=== PATIENT | female | born 1930 | race Caucasian/White ===

== ENCOUNTER 2017-04-17 10:16 | Inpatient (IN) | payer OTHER, MEDICARE ==
--- NOTE | 2017-04-17 10:21 | PDOC ---
History of Present Illness - General History Source: Patient Exam Limitations: No Limitations - History of Present Illness Initial Comments: 04/17/17 10:53 The patient is a 86 year old female with a significant past medical history of HTN, Afib on coumadin and amiodarone, diverticulosis, and Acid Reflux who presents to the ED with one week of cough. The patient reports she developed a productive cough of clear phlegm Wednesday evening. She states the cough is worsened at night when she is laying down and reports wheezing last night. Patient also reports rhinorrhea, subjective fever, and a hoarse throat throughout the week. Patient reports an episode of generalized weakness this morning and felt like she was going to faint. Denies loss of consciousness. Patient reports taking tylenol (last dose at 2 am this morning), coricidin, and gargling salt water with slight relief of present symptoms. Nilson chest pain or palpitations. Denies nausea, vomiting, or diarrhea. Denies dysuria or change in urinary output. Denies throat pain. Denies any other symptoms. Past Surgical hx: Appendectomy Social hx: The patient is a current everyday smoker (5-6 cigarettes a day) and a social drinker. Allergies: Penicillin PCP: Dr. Urban <Christiano Vasquez - Last Filed: 04/17/17 17:50> <Ruth Anne - Last Filed: 04/18/17 00:00> - General Chief Complaint: Weakness Stated Complaint: WEAKNESS/DIZZINESS Time Seen by Provider: 04/17/17 10:21 Past History <Christiano Vasquez - Last Filed: 04/17/17 17:50> - Past Medical History Cardiac Disorders: Yes (A FIB) CVA: No CHF: No Dementia: No Diabetes: No GI Disorders: Yes (DIVERTICULOSIS) Disorders: No HTN: No Hypercholesterolemia: Yes Liver Disease: No Seizures: No Thyroid Disease: No - Surgical History Abdominal Surgery: Yes Appendectomy: Yes Cardiac Surgery: No Cholecystectomy: No Lung Surgery: No Neurologic Surgery: No Orthopedic Surgery: No - Suicide/Smoking/Psychosocial Hx Smoking Status: Yes Smoking History: Current every day smoker Have you smoked in the past 12 months: Yes Number of Cigarettes Smoked Daily: 10 'Breaking Loose' booklet given: 02/04/16 Hx Alcohol Use: No Drug/Substance Use Hx: No Substance Use Type: None Hx Substance Use Treatment: No <Ruth Anne - Last Filed: 04/18/17 00:00> - Past Medical History Allergies/Adverse Reactions: Allergies Allergy/AdvReac Type Severity Reaction Status Date / Time amoxicillin AdvReac Intermediate Vomiting Verified 04/17/17 10:23 Home Medications: Ambulatory Orders Amiodarone HCl 200 mg PO DAILY 04/17/17 Warfarin Sodium [Coumadin] 5 mg PO MOWEFR 04/17/17 Warfarin Sodium [Coumadin] 6 mg PO ASDIR 04/17/17 Review of Systems - Review of Systems Able to Perform ROS?: Yes Comments:: 04/17/17 10:53 Constitutional - + subjective fever, generalized weakness HEENT: + rhinorrhea, hoarse throat. denies vision changes, sore throat Respiratory: + cough,wheezing Denies sob, hemoptysis Cardiac: denies chest pain, palpitations, light headedness, leg swelling Abd/GI: denies abd pain, nausea, vomiting, blood per rectum, melena, diarrhea : denies dysuria, frequency, discharge Musculskelatal - denies back pain, joint swelling skin - denies bruising, erythema, rash neurological: denies headache, numbness, focal weakness, tingling, ataxia, weakness hematologic: denies anemia, easy bruising, easy bleeding All Other Systems: Reviewed and Negative <Christiano Vasquez - Last Filed: 04/17/17 17:50> *Physical Exam - Vital Signs Last Vital Signs Temp Pulse Resp BP Pulse Ox 98.4 F 60 18 145/70 98 04/17/17 10:26 04/17/17 10:51 04/17/17 10:26 04/17/17 10:26 04/17/17 10:51 - Physical Exam Comments: 04/17/17 10:54 GENERAL: The patient is awake, alert, and fully oriented, Nontoxic - in no acute distress. HEAD: Normocephalic, atraumatic. EYES: extraocular movements intact, sclera anicteric, conjunctiva clear. ENT: + dry tongue. Normal voice, moist mucous membranes. NECK: Normal range of motion, supple without lymphadenopathy, JVD, or masses. LUNGS: Breath sounds equal, clear to auscultation bilaterally. No wheezes, no crackles, no rales. HEART: Regular rate and rhythm, normal S1 and S2 without murmur, rub or gallop. ABDOMEN: Soft, nontender, normoactive bowel sounds. No guarding, no rebound. No masses. EXTREMITIES: Normal range of motion, no edema. No clubbing or cyanosis. No cords , erythema, or tenderness. NEUROLOGICAL: Fully Oriented, Alert, Normal Mood/Affect, Motor Strength 5/5. No facial assymetry, Normal speech SKIN: Warm, Dry, normal turgor, no rashes or lesions noted. <Christiano Vasquez - Last Filed: 04/17/17 17:50> Heart Score/ECG Review #1 04/17/17 17:50 Vent. rate 68 bpm ID interval 148 ms QRS duration 84 ms Normal sinus rhythm Nonspecific ST and T wave abnormality Abnormal ECG When compare with ECG of 02/04/16, QT has lengthened <Christiano Vasquez - Last Filed: 04/17/17 17:50> ED Treatment Course - LABORATORY CBC & Chemistry Diagram: 04/17/17 10:51 04/17/17 10:51 - RADIOLOGY Radiograph Interpretation: 04/17/17 11:59 RAD/CHEST X-RAY PORTABLE: Impression: No acute pathology. No significant change since prior. Reported by: Rogelio Rueda 04/17/17 17:36 CT/HEAD CT W/O CONTRAST Impression: 1. no evidence of acute intracranial hemorrhage or acute transcortical infarction at this time. No mass effects or hydrocephalus. MRI is more sensitive in detecting acute infarction. 2. Paranasal sinus disease as described above with scattered fluid levels, most prominent in left sphenoid sinus. Reported by: Maury Gunter <Christiano Vasquez - Last Filed: 04/17/17 17:50> - LABORATORY CBC & Chemistry Diagram: 04/17/17 10:51 04/17/17 10:51 <Ruth Anne - Last Filed: 04/18/17 00:00> Medical Decision Making - Medical Decision Making 04/17/17 12:[address] Uriostegui, shoulder boner for Dr. Levi, at 12:34. Case also discussed with Dr. Hager, shoulder boner for Dr. Urban, at 12:00 <Christiano Vasquez - Last Filed: 04/17/17 17:50> - Medical Decision Making 04/17/17 10:34 I, uLis E Anne, attest that the scribes documentation that appears above has been prepared under my direction and personally reviewed by me. I confirmed that the note above accurately reflects all work, treatment, procedures, and medical decision-making performed by me. 04/17/17 10:13 04/17/17 10:35 86 y/o female presents to Ed c/o not feeling well since 04-12-17. Pt c/o cough with clear phlegm worse at night, felt feverish but no documented fever. Pt taking coriciden , tylenol and gargaling with salt and water.Pt's says the coricden is loosening up the phlegm. Last dose of tylenol was at 2am. Pt denies chest pain or plpitations with above comlaints but today she felt weak after coughing al most like she was going to pass out so she came in for evaluation. Will obtain cbc, cmp, ua, cxr, flu swab and reevaluate 04/17/17 10:40 04/17/17 12:38 Pt's labs, cxr, ekg and ua reviewed, Pt with nl cxr, inr is 3.0, troponin is .08. Given pt's history and afib, lives alone and positive troponin, will admit to tele for serial troponins and cardiology evaluation. Pt has agreed to admission, Pt seen in ED by DR Kaplan covering for Dr. Urban, case discussed with scene shifter covering for Dr. Sushant Lvei, pt's scene shifter. Will Give dose of rocephin due to laryngitis,cough, pt is an active smoker, and ua showing 2 + leukocytes, Urine cx is pending. PT in stable condition at time of admission to hospital. 04/17/17 12:50 04/17/17 23:59 <Ruth Anne - Last Filed: 04/18/17 00:00> *DC/Admit/Observation/Transfer - Attestations Scribe Attestion: 04/17/17 10:54 Documentation prepared by Christiano Vasquez, acting as medical administrative for Ruth Anne MD <Christiano Vasquez - Last Filed: 04/17/17 17:50> - Discharge Dispostion Admit: Yes <Ruth Anne - Last Filed: 04/18/17 00:00> Diagnosis at time of Disposition: Dizziness - Discharge Dispostion Condition at time of disposition: Stable
[2017-04-17 10:28] VITALS: BMI 23.2
[2017-04-17 11:15] LABS: BASO % 0.7 % (0-2.0); EOS % 1.6 % (0-4.5); HEMOGLOBIN 14.3 GM/dL (10.7-15.3); LYMPH % 35.7 % (8-40); MCH 31.1 pg (25.7-33.7); MCHC 33.3 g/dl (32.0-36.0); MEAN CELL VOLUME 93.5 fl (80-96); MEAN PLT VOLUME 8.9 fl (7.5-11.1); MONO % 12.7 % (3.8-10.2); NEUT % 49.3 % (42.8-82.8); PLATELET COUNT 215 K/MM3 (134-434); RDW 13.4 % (11.6-15.6); WHITE BLOOD COUNT 5.6 K/mm3 (4.0-10.0)
[2017-04-17 11:21] LABS: URINE APPEARANCE SLCLOUDY; URINE BILIRUBIN NEGATIVE (NEGATIVE); URINE BLOOD NEGATIVE (NEGATIVE); URINE COLOR YELLOW; URINE GLUCOSE (UA) NEGATIVE (NEGATIVE); URINE KETONE NEGATIVE (NEGATIVE); URINE NITRITE NEGATIVE (NEGATIVE); URINE PROTEIN NEGATIVE (NEGATIVE); URINE UROBILINOGEN NEGATIVE mg/dL (0.2-1.0)
[2017-04-17 11:27] LABS: URINE LEUK ESTERASE 2+ (NEGATIVE)
[2017-04-17 11:35] LABS: EPI CELLS RARE /HPF (FEW); URINE BACTERIA RARE /hpf (NONE SEEN); URINE HYALINE CAST 1 /lpf; URINE MUCUS RARE
[2017-04-17 11:36] LABS: ALBUMIN 3.6 g/dl (3.4-5.0); ANION GAP 4 (8-16); BILIRUBIN,TOTAL 0.8 mg/dL (0.2-1.0); BLOOD UREA NITROGEN 11 mg/dL (7-18); CALCIUM 8.3 mg/dL (8.5-10.1); CHLORIDE 109 mmol/L (98-107); CO2 27 mmol/L (21-32); CREATININE 0.9 mg/dL (0.55-1.02); GLUCOSE,RANDOM 88 mg/dL (74-106); POTASSIUM 4.2 mmol/L (3.5-5.1); SGOT/AST 19 U/L (15-37); SGPT/ALT 18 U/L (12-78); SODIUM 140 mmol/L (136-145); TOT PROT 6.8 g/dl (6.4-8.2)
[2017-04-17 11:37] LABS: ALK PHOS 88 U/L (45-117)
[2017-04-17 11:42] LABS: INR 3.21 (0.82-1.09); PROTHROMBIN TIME (PATIENT) 36.3 SEC (9.98-11.88)
--- NOTE | 2017-04-17 12:41 | HP ---
Admitting History and Physical - Admission History of Present Illness: 86 year old female with a significant past medical history of HTN, Afib on coumadin and amiodarone, diverticulosis, and Acid Reflux who presents to the ED with one week of cough. The patient reports she developed a productive cough of clear phlegm Wednesday evening. She states the cough is worsened at night when she is laying down and reports wheezing last night. Patient also reports rhinorrhea , subjective fever, and a hoarse throat throughout the week. Patient reports an episode of generalized weakness this morning and felt like she was going to faint. Denies loss of consciousness. Patient reports taking tylenol (last dose at 2 am this morning), coricidin, and gargling salt water with slight relief of present symptoms. Nilson chest pain or palpitations. Denies nausea, vomiting, or diarrhea. Denies dysuria or change in urinary output. Denies throat pain. Denies any other symptoms. - Past Medical History Cardiovascular: Yes: AFIB, HTN, Hyperlipdemia Gastrointestinal: Yes: GERD - Smoking History Smoking history: Current every day smoker Have you smoked in the past 12 months: Yes Aproximately how many cigarettes per day: 10 - Alcohol/Substance Use Hx Alcohol Use: No Home Medications - Allergies Allergies/Adverse Reactions: Allergies Allergy/AdvReac Type Severity Reaction Status Date / Time amoxicillin AdvReac Intermediate Vomiting Verified 04/17/17 10:23 - Home Medications Home Medications: Ambulatory Orders Amiodarone HCl 200 mg PO DAILY 04/17/17 Warfarin Sodium [Coumadin] 5 mg PO MOWEFR 04/17/17 Warfarin Sodium [Coumadin] 6 mg PO ASDIR 04/17/17 Review of Systems - Review of Systems Cardiovascular: denies: Chest Pain Respiratory: reports: Cough Gastrointestinal: denies: Abdominal Pain Genitourinary: reports: No Symptoms Neurological: reports: Dizziness, Weakness Physical Examination Vital Signs: Vital Signs Temperature 98.4 F 04/17/17 10:26 Pulse Rate 60 04/17/17 10:51 Respiratory Rate 18 04/17/17 10:26 Blood Pressure 145/70 04/17/17 10:26 O2 Sat by Pulse Oximetry (%) 98 04/17/17 10:51 Cardiovascular: Yes: Murmur, S1, S2 Respiratory: Yes: Regular, CTA Bilaterally Gastrointestinal: Yes: Normal Bowel Sounds, Soft Edema: No Labs: CBC, BMP 04/17/17 10:51 04/17/17 10:51 Problem List - Problems (1) Afib Assessment/Plan: RATE CONTROLLED TELE CARDIO AC Code(s): I48.91 - UNSPECIFIED ATRIAL FIBRILLATION (2) HTN (hypertension) Assessment/Plan: Vital Signs Period Temp Pulse Resp BP Sys/Lucero Pulse Ox Last 24 Hr 98.4 F 60-66 17-18 142-145/70-74 98-98 Code(s): I10 - ESSENTIAL (PRIMARY) HYPERTENSION (3) Elevated troponin Assessment/Plan: FOLLOW TRENDS CARDIO ASA STATIN Code(s): R74.8 - ABNORMAL LEVELS OF OTHER SERUM ENZYMES (4) Dizziness Assessment/Plan: ABOVE CT HEAD Code(s): R42 - DIZZINESS AND GIDDINESS
[2017-04-17] MEDS: ASPIRIN COATED 81 MG TABLET.EC PO SCH (12:53)
[2017-04-17] MEDS ORDERED: CEFTRIAXONE 1 GM in DEXTROSE 5%-WATER - 50 ML IVPB ONE (12:53)
[2017-04-17] MEDS ORDERED: ASPIRIN 81 MG CHEWABLE TABLETS ONE (13:06)
[2017-04-17] MEDS ORDERED: CEFTRIAXONE 1 GM/50 ML BAG ONE (13:06)
--- NOTE | 2017-04-17 16:03 | EKG ---
Test Reason : Blood Pressure : / mmHG Vent. Rate : 068 BPM Atrial Rate : 068 BPM P-R Int : 148 ms QRS Dur : 084 ms QT Int : 484 ms P-R-T Axes : 056 021 083 degrees QTc Int : 514 ms NORMAL SINUS RHYTHM NONSPECIFIC ST AND T WAVE ABNORMALITY ABNORMAL ECG WHEN COMPARED WITH ECG OF 04-FEB-2016 10:19, QT HAS LENGTHENED Confirmed by KAYDEN RONDON, ZENOBIA ([id number]) on 04/17/2017 4:03:11 PM Referred By: Confirmed By:ZENOBIA MONIQUE MD
[2017-04-17] MEDS: ALBUTEROL SO4 2.5/IPRATROPIUM 0.5 INH SOL 3 ML VIAL.NEB. NEB SCH ×2 (18:00→20:05)
[2017-04-17] MEDS: ATORVASTATIN CA 20 MG TABLET (FP) PO SCH (22:04)
[2017-04-18] MEDS: ALBUTEROL SO4 2.5/IPRATROPIUM 0.5 INH SOL 3 ML VIAL.NEB. NEB SCH ×4 (07:45→20:05)
[2017-04-18 08:05] LABS: INR 2.57 (0.82-1.09)
[2017-04-18 08:06] LABS: BASO % 0.5 % (0-2.0); EOS % 1.4 % (0-4.5); HEMATOCRIT 42.9 % (32.4-45.2); HEMOGLOBIN 14.4 GM/dL (10.7-15.3); MCH 31.3 pg (25.7-33.7); MCHC 33.6 g/dl (32.0-36.0); MEAN CELL VOLUME 93.2 fl (80-96); MEAN PLT VOLUME 9.2 fl (7.5-11.1); MONO % 9.6 % (3.8-10.2); NEUT % 50.5 % (42.8-82.8); PLATELET COUNT 215 K/MM3 (134-434); RDW 13.5 % (11.6-15.6); WHITE BLOOD COUNT 6.4 K/mm3 (4.0-10.0)
[2017-04-18 08:23] LABS: ALBUMIN 3.5 g/dl (3.4-5.0); ANION GAP 7 (8-16); BILIRUBIN,TOTAL 0.9 mg/dL (0.2-1.0); BLOOD UREA NITROGEN 10 mg/dL (7-18); CALCIUM 8.4 mg/dL (8.5-10.1); CHLORIDE 107 mmol/L (98-107); CHOLESTEROL 194 mg/dL (50-200); CO2 27 mmol/L (21-32); GLUCOSE,RANDOM 76 mg/dL (74-106); LDL CHOLESTEROL (ONLY SJRH) 116 mg/dL (5-100); SGOT/AST 19 U/L (15-37); SGPT/ALT 18 U/L (12-78); SODIUM 141 mmol/L (136-145); TOT PROT 6.8 g/dl (6.4-8.2); TRIGLYCERIDES 115 mg/dL (35-160)
[2017-04-18 08:24] LABS: ALK PHOS 87 U/L (45-117); HDL CHOLESTEROL 65 mg/dL (40-60)
--- NOTE | 2017-04-18 08:42 | PN ---
Progress Note, Physician Chief Complaint: Cough History of Present Illness: NAD, in bed -dizziness felt like light headedness prior to admission, 2/2 to URI dehydration ? Influenza culture pending -started on Tamiflu -on warfarin for afib -Son Asad at bedside - Current Medication List Current Medications: Active Medications Albuterol/Ipratropium (Duoneb -) 1 amp NEB RQID [facility] Last Admin: 04/17/17 20:05 Dose: 1 amp Amiodarone HCl (Cordarone -) 200 mg PO DAILY [facility] Aspirin (Ecotrin -) 81 mg PO DAILY [facility] Last Admin: 04/17/17 12:53 Dose: 81 mg Atorvastatin Calcium (Lipitor -) 20 mg PO HS [facility] Last Admin: 04/17/17 22:04 Dose: Not Given Metoprolol Tartrate (Lopressor -) 25 mg PO DAILY [facility] Warfarin Sodium (Coumadin -) 5 mg PO MOWEFR [facility] - Objective Vital Signs: Vital Signs Temperature 97.7 F 04/18/17 05:34 Pulse Rate 64 04/18/17 05:34 Respiratory Rate 20 04/18/17 05:34 Blood Pressure 137/56 04/18/17 05:34 O2 Sat by Pulse Oximetry (%) 95 04/17/17 21:00 Constitutional: Yes: Well Nourished, No Distress, Calm Cardiovascular: Yes: Regular Rate and Rhythm Respiratory: Yes: Regular Gastrointestinal: Yes: Normal Bowel Sounds, Soft Musculoskeletal: Yes: WNL Extremities: Yes: WNL Edema: No Peripheral Pulses WNL: Yes Neurological: Yes: Alert, Oriented Psychiatric: Yes: Alert, Oriented Labs: CBC, BMP 04/18/17 06:30 04/18/17 06:30 INR, PTT INR 2.57 (0.82-1.09) H 04/18/17 06:30 Problem List - Problems (1) Afib Code(s): I48.91 - UNSPECIFIED ATRIAL FIBRILLATION (2) Dizziness Assessment/Plan: -Cardiology consult -Echo done on 02/05/16- repeat echo ordered -Neuro consult -CT head reviewed Code(s): R42 - DIZZINESS AND GIDDINESS (3) Weakness Code(s): R53.1 - WEAKNESS (4) URI (upper respiratory infection) Assessment/Plan: -Influenza culture pending -Tamiflu -maintain isolation Code(s): J06.9 - ACUTE UPPER RESPIRATORY INFECTION, UNSPECIFIED Assessment/Plan see problem list
[2017-04-18] MEDS: ASPIRIN COATED 81 MG TABLET.EC PO SCH (09:12)
[2017-04-18] MEDS: AMIODARONE HCL 200 MG TABLET (FP) PO SCH (09:12)
[2017-04-18] MEDS ORDERED: OSELTAMIVIR PHOSPHATE 75 MG CAPSULE PO SCH (10:00)
[2017-04-18] MEDS ORDERED: METOPROLOL TARTRATE 25 MG TABLET (FP) PO SCH (10:00)
--- NOTE | 2017-04-18 15:55 | CON.CARD ---
Cardiology Consult (text) - Consultation Consultation Note: CC: palpitations 86 yo smoker with a history of A. fib on Coumadin/amiodarone, htn, mild mr, gerd , diverticulosis who presents with cough/dizziness and noted to have mild troponin elevation isolated cough x 1 week, productive of clear sputum. No other symptoms including congestion, f/c/s, myalgias up until night before presentation when she noticed some wheezing. + hoarse voice as a results of frequent coughing. She states for the past month she has had increased frequency of palpitations. Was evaluated by EP at [facility] 2 weeks ago and has plan for ablation. States she feels weak after episodes of palpitations. Last episode of palpitations was a few days ago but on day of presentation had similar episode of weakness/ dizziness. No increased etoh intake, no increased tobacco use recently. Not on metoprolol as outpatient but received it this morning. --> no palps/ dizziness while here. cough improved. No f/c/s, n/v/d, rashes, headache, bleeding, visual disturbances. Denies orthopnea, pnd, le edema, cp, sob, claudication, or transient neurologic symptoms. Mandolin Repair Person: Dr. Levi PMH/PSH: Appendectomy Social history: Lives alone, independent in activities of daily living, + tobacco. drinks one cocktail every night. Family history: Mother of bone cancer, brother of pancreatic cancer ROS: [facility] Ambulatory Orders Amiodarone HCl 200 mg PO DAILY 04/17/17 Warfarin Sodium [Coumadin] 5 mg PO MOWEFR 04/17/17 Warfarin Sodium [Coumadin] 6 mg PO ASDIR 04/17/17 Current Medications Albuterol/Ipratropium (Duoneb -) 1 amp NEB RQID [facility] Last Admin: 04/18/17 12:00 Dose: Not Given Amiodarone HCl (Cordarone -) 200 mg PO DAILY [facility] Last Admin: 04/18/17 09:12 Dose: 200 mg Aspirin (Ecotrin -) 81 mg PO DAILY [facility] Last Admin: 04/18/17 09:12 Dose: 81 mg Atorvastatin Calcium (Lipitor -) 20 mg PO HS [facility] Last Admin: 04/17/17 22:04 Dose: Not Given Metoprolol Tartrate (Lopressor -) 25 mg PO DAILY [facility] Last Admin: 02/11/18 09:11 Dose: 25 mg Warfarin Sodium (Coumadin -) 5 mg PO DAILY@1800 [facility] Vital Signs - 24 hr 04/17/17 04/17/17 04/17/17 15:53 17:00 17:54 Temperature 98.1 F 98.5 F Pulse Rate 62 Pulse Rate [ 85 Apical] Respiratory 20 20 19 Rate Blood Pressure 135/67 Blood Pressure 130/72 [Right Arm] O2 Sat by Pulse 98 98 98 Oximetry (%) 04/17/17 04/17/17 04/18/17 20:36 21:00 01:40 Temperature 97.9 F 98 F Pulse Rate 61 63 Pulse Rate [ Apical] Respiratory 20 20 Rate Blood Pressure 129/65 128/60 Blood Pressure [Right Arm] O2 Sat by Pulse 95 Oximetry (%) 04/18/17 04/18/17 04/18/17 05:34 09:00 14:13 Temperature 97.7 F 97.6 F 98.3 F Pulse Rate 64 61 57 L Pulse Rate [ Apical] Respiratory 20 19 20 Rate Blood Pressure 137/56 134/62 119/57 Blood Pressure [Right Arm] O2 Sat by Pulse 97 Oximetry (%) Intake & Output 04/16/17 04/17/17 04/18/17 04/19/17 07:59 07:59 07:59 07:59 Weight 127 lb 6.4 oz PHYSICAL EXAM: GENERAL: The patient is awake, alert, and fully oriented, in no acute distress. HEAD: Normal with no signs of trauma. Neck: JVD flat, neck supple. LUNGS: Clear to auscultation bilaterally/slightly diminshed air mov't. Normal excursion and effort. No respiratory distress or use of accessory muscles. CV: RRR, S1/S2, no MRG. Cap refill < 2 sec. ABDOMEN: Soft, non-distended, NT, no hepatomegaly + BS EXTREMITIES: Normal range of motion, no edema, cyanosis or clubbing. NEUROLOGICAL: aaox3 SKIN: No jaundice, diaphoresis + dp/pt no carotid bruit CBC, BMP 04/18/17 06:30 04/18/17 06:30 Laboratory Tests 04/17/17 04/17/17 10:51 10:51 INR 3.21 H D Hemoglobin A1c % Total Bilirubin AST ALT Alkaline Phosphatase Troponin I 0.08 H Creatine Kinase Albumin Triglycerides Cholesterol Total LDL Cholesterol HDL Cholesterol 04/17/17 04/18/17 04/18/17 19:40 06:30 06:30 INR 2.57 H Hemoglobin A1c % Total Bilirubin 0.9 AST 19 ALT 18 Alkaline Phosphatase 87 Troponin I 0.08 H 0.08 H Creatine Kinase 59 Albumin 3.5 Triglycerides 115 Cholesterol 194 Total LDL Cholesterol 116 H HDL Cholesterol 65 H 04/18/17 06:30 INR Hemoglobin A1c % 5.3 Total Bilirubin AST ALT Alkaline Phosphatase Troponin I Creatine Kinase Albumin Triglycerides Cholesterol Total LDL Cholesterol HDL Cholesterol EKG 04/17: nsr, diffuse non-specific st-t wave ab, prolonged qt. similar st-t wave morphology to priors. EKG 04/18: no sig change. tele: sr/sb. echo 07/2016: nl lv/rv. 1+ lae. 1+ mr. mild-mod tr. mod pr. nl rvsp. CXR: No acute pulmonary disease. similar to priors head ct: minimal microvascular changes. atherosclerosis of the carotids. paranasal sinus disease. 86 yo smoker with a history of A. fib on Coumadin/amiodarone, htn, mild mr, gerd , diverticulosis who presents with cough/dizziness and noted to have mild troponin elevation paroxysmal atrial fibrillation - con't AC with coumadin, dosing per inr. No need for additional ASA, will d/ c. - counseled to decrease etoh consumption. - currently in sinus rhythm, but with recent increase in frequency of palps on amiodarone over the past couple of months --> As outpatient, tried dilt without improvement in sx's. Also tried inderal but it caused hypotension and bradycardia. Had previously tried metoprolol without effect. --> referred for ablation. Was evaluated by EP at [facility] 2 weeks ago and has plan for ablation. Here, patient was given daily lopressor and has not had recurrence of palpitations and no atrial arrhythmia on telemetry, but slight drop in bp. con 't amiodarone. Trial of toprol at lower dose (12.5 mg) tomorrow. - repeat tsh. lyte repletion prn. dizziness - currently resolved. - frequently occurs after episode of SVT/afib and patient with increased freq of palps. Therefore may have been secondary to a prolonged episode of afib/ svt. - per report, had also been taking coricidin as a cough suppressent --> may have caused dizziness. - will check orthostatics in am. - neuro following. carotid u/s and head ct overall unremarkable. troponin elevation - borderline intermediate troponin (0.08), similar to prior trop level (0.05 in january). flat trend. No concern for ACS. - patient with long-standing st-twave abnormalities, unchanged here. - no need for additional asa, will d/c prolonged qt - K wnl. will check magnesium. Repeat ekg in am. If still prolonged, consider need to decrease amio dosing to 100 mg/day. - tele so far benign + tobacco - tobacco cessation counseling
--- NOTE | 2017-04-18 16:50 | EKG ---
Test Reason : Blood Pressure : / mmHG Vent. Rate : 060 BPM Atrial Rate : 060 BPM P-R Int : 152 ms QRS Dur : 084 ms QT Int : 470 ms P-R-T Axes : 057 028 023 degrees QTc Int : 470 ms NORMAL SINUS RHYTHM PROLONGED QT ABNORMAL ECG WHEN COMPARED WITH ECG OF 17-APR-2017 10:56, INVERTED T WAVES HAVE REPLACED NONSPECIFIC T WAVE ABNORMALITY IN ANTERIOR LEADS Confirmed by KAYDEN RONDON, ZENOBIA ([id number]) on 04/18/2017 4:50:22 PM Referred By: Ileana CAMPO Confirmed By:ZENOBIA MONIQUE MD
[2017-04-18] MEDS: WARFARIN NA 5 MG TABLET (UD) PO SCH (17:22)
--- NOTE | 2017-04-18 17:25 | CON.NEURO ---
Consult - Past Medical History Cardio/Vascular: Yes: AFIB, HTN, Hyperlipdemia Gastrointestinal: Yes: GERD - Alcohol/Substance Use Hx Alcohol Use: No - Smoking History Smoking history: Current every day smoker Have you smoked in the past 12 months: Yes Aproximately how many cigarettes per day: 10 Home Medications - Allergies Allergies/Adverse Reactions: Allergies Allergy/AdvReac Type Severity Reaction Status Date / Time amoxicillin AdvReac Intermediate Vomiting Verified 04/17/17 10:23 - Home Medications Home Medications: Ambulatory Orders Amiodarone HCl 200 mg PO DAILY 04/17/17 Warfarin Sodium [Coumadin] 5 mg PO MOWEFR 04/17/17 Warfarin Sodium [Coumadin] 6 mg PO ASDIR 04/17/17 Physical Exam-Neuro Vital Signs: Vital Signs Temperature 98.3 F 04/18/17 14:13 Pulse Rate 57 L 04/18/17 14:13 Respiratory Rate 20 04/18/17 14:13 Blood Pressure 119/57 04/18/17 14:13 O2 Sat by Pulse Oximetry (%) 97 04/18/17 09:00 Labs: CBC, BMP 04/18/17 06:30 04/18/17 06:30 INR, PTT INR 2.57 (0.82-1.09) H 04/18/17 06:30 Assessment/Plan CC feeling of transient dizziness HPI 86 year old female has history of htn, atrial fibrillation, GERD, came to ed for one week history of productive cough and was feeling dizziness. She describes dizziness as lightheadedness, no dysphagia, dysarthria or diplopia. There is no motor weakness or any other focal neurological symptoms. Her dizziness symptoms resolved and ct was unremarkable. Past medical history AFIB, HTN, Hyperlipdemia GERD SH,ROS,FH reviewed in chart Allergies/Adverse Reactions: Allergies Allergy/AdvReac Type Severity Reaction Status Date / Time amoxicillin AdvReac Intermediate Vomiting Verified 04/17/17 10:23 Home Medications: Amiodarone HCl 200 mg PO DAILY 04/17/17 Warfarin Sodium [Coumadin] 5 mg PO MOWEFR 04/17/17 Warfarin Sodium [Coumadin] 6 mg PO ASDIR 04/17/17 Neurological Examination Alert oriented x 3, sitting in bed eating dinner, speech is normal and not feeling dizzy cn all intact, eomi, pupils is reactive no face asymmetry motor is 5/5 all ext sensation is normal ct head no acute findnigs Assessment- non specific dizziness, no evidence of cerebellar dysfunction, Cord compression or Neuropathy Plan-- no further recommendation from neurological point of view Thanking you so much Balwinder Salinas MD
[2017-04-18] MEDS: ATORVASTATIN CA 20 MG TABLET (FP) PO SCH (21:40)
[2017-04-19] MEDS: ALBUTEROL SO4 2.5/IPRATROPIUM 0.5 INH SOL 3 ML VIAL.NEB. NEB SCH ×4 (07:36→20:59)
[2017-04-19 08:21] LABS: INR 1.79 (0.82-1.09); PROTHROMBIN TIME (PATIENT) 20.2 SEC (9.98-11.88)
[2017-04-19 08:37] LABS: MAGNESIUM 2.2 mg/dL (1.8-2.4)
--- NOTE | 2017-04-19 08:38 | PN ---
Progress Note, Physician - Current Medication List Current Medications: Active Medications Albuterol/Ipratropium (Duoneb -) 1 amp NEB RQID [facility] Last Admin: 04/19/17 07:36 Dose: 1 amp Amiodarone HCl (Cordarone -) 200 mg PO DAILY [facility] Last Admin: 04/18/17 09:12 Dose: 200 mg Atorvastatin Calcium (Lipitor -) 20 mg PO HS [facility] Last Admin: 04/18/17 21:40 Dose: Not Given Metoprolol Succinate (Toprol Xl -) 12.5 mg PO DAILY [facility] Warfarin Sodium (Coumadin -) 5 mg PO DAILY@1800 [facility] Last Admin: 04/18/17 17:22 Dose: 5 mg - Objective Vital Signs: Vital Signs Temperature 98.2 F 04/19/17 06:00 Pulse Rate 70 04/19/17 06:00 Respiratory Rate 20 04/19/17 06:00 Blood Pressure 134/70 04/19/17 02:00 O2 Sat by Pulse Oximetry (%) 94 L 04/18/17 21:00 Labs: CBC, BMP 04/18/17 06:30 04/18/17 06:30 INR, PTT INR 2.57 (0.82-1.09) H 04/18/17 06:30 Assessment/Plan EKG 04/17: nsr, diffuse non-specific st-t wave ab, prolonged qt. similar st-t wave morphology to priors. EKG 04/18: no sig change. echo 07/2016: nl lv/rv. 1+ lae. 1+ mr. mild-mod tr. mod pr. nl rvsp. CXR: No acute pulmonary disease. similar to priors head ct: minimal microvascular changes. atherosclerosis of the carotids. paranasal sinus disease. 86 yo smoker with a history of A. fib on Coumadin/amiodarone, htn, mild mr, gerd , diverticulosis who presents with cough/dizziness and noted to have mild troponin elevation paroxysmal atrial fibrillation - con't AC with coumadin, dosing per inr. No need for additional ASA, will d/ c. - counseled to decrease etoh consumption. - currently in sinus rhythm, but with recent increase in frequency of palps on amiodarone over the past couple of months --> As outpatient, tried dilt without improvement in sx's. Also tried inderal but it caused hypotension and bradycardia. Had previously tried metoprolol without effect. --> referred for ablation. Was evaluated by EP at [facility] 2 weeks ago and has plan for ablation. Here, patient was given daily lopressor and has not had recurrence of palpitations and no atrial arrhythmia on telemetry, but slight drop in bp. con 't amiodarone. Trial of toprol at lower dose (12.5 mg) tomorrow. - repeat tsh. lyte repletion prn. - outpt f/u with dr david dizziness - currently resolved. - frequently occurs after episode of SVT/afib and patient with increased freq of palps. Therefore may have been secondary to a prolonged episode of afib/ svt. - per report, had also been taking coricidin as a cough suppressent --> may have caused dizziness. - will check orthostatics in am. - neuro following. carotid u/s and head ct overall unremarkable. troponin elevation - borderline intermediate troponin (0.08), similar to prior trop level (0.05 in january). flat trend x3. No concern for ACS. - patient with long-standing st-twave abnormalities, unchanged here. - no need for additional asa, will d/c prolonged qt - initial ECG with QT >500 msec. rpt ECG improved (460-470 msec). - risk of torsades on amio with qt < 500 is considered extremely low (per EP discussions) - K wnl. will check magnesium. Repeat ekg in am. If still prolonged, consider need to decrease amio dosing to 100 mg/day. - tele so far benign + tobacco - tobacco cessation counseling D/C TELEMETRY
[2017-04-19] MEDS: metoPROLOL SUCCINATE 25 MG TAB.SR.24H (FP) PO SCH (09:21)
[2017-04-19] MEDS: AMIODARONE HCL 200 MG TABLET (FP) PO SCH (09:21)
[2017-04-19] MEDS ORDERED: WARFARIN NA 5 MG TABLET (UD) PO SCH (12:35)
--- NOTE | 2017-04-19 14:05 | PN ---
Progress Note, Physician Chief Complaint: AWAKE ALERT DENIES SOB NO FEVERS - Current Medication List Current Medications: Active Medications Albuterol/Ipratropium (Duoneb -) 1 amp NEB RQID [facility] Last Admin: 04/19/17 11:01 Dose: 1 amp Amiodarone HCl (Cordarone -) 200 mg PO DAILY [facility] Last Admin: 04/19/17 09:21 Dose: 200 mg Atorvastatin Calcium (Lipitor -) 20 mg PO HS [facility] Last Admin: 04/18/17 21:40 Dose: Not Given Metoprolol Succinate (Toprol Xl -) 12.5 mg PO DAILY [facility] Last Admin: 04/19/17 09:21 Dose: 12.5 mg Trimethoprim/Sulfamethoxazole (Bactrim Ds -) 1 each PO BID [facility] Warfarin Sodium (Coumadin -) 5 mg PO DAILY@1800 [facility] Last Admin: 04/18/17 17:22 Dose: 5 mg - Objective Vital Signs: Vital Signs Temperature 98.3 F 04/19/17 13:34 Pulse Rate 65 04/19/17 13:34 Respiratory Rate 16 04/19/17 13:34 Blood Pressure 110/51 04/19/17 13:34 O2 Sat by Pulse Oximetry (%) 96 04/19/17 09:42 Constitutional: Yes: Mild Distress Eyes: Yes: WNL HENT: Yes: WNL Neck: Yes: WNL Cardiovascular: Yes: Pulse Irregular Respiratory: Yes: WNL Gastrointestinal: Yes: WNL Genitourinary: Yes: WNL Musculoskeletal: Yes: WNL Extremities: Yes: WNL Edema: No Peripheral Pulses WNL: Yes Integumentary: Yes: WNL Wound/Incision: Yes: Clean/Dry Neurological: Yes: WNL ...Motor Strength: WNL Psychiatric: Yes: WNL Labs: CBC, BMP 04/18/17 06:30 04/18/17 06:30 INR, PTT INR 1.79 (0.82-1.09) H D 04/19/17 07:20 Problem List - Problems (1) UTI (urinary tract infection) Code(s): N39.0 - URINARY TRACT INFECTION, SITE NOT SPECIFIED Qualifiers: Urinary tract infection type: acute cystitis (2) Afib Code(s): I48.91 - UNSPECIFIED ATRIAL FIBRILLATION (3) Dizziness Code(s): R42 - DIZZINESS AND GIDDINESS (4) Elevated troponin Code(s): R74.8 - ABNORMAL LEVELS OF OTHER SERUM ENZYMES (5) HTN (hypertension) Code(s): I10 - ESSENTIAL (PRIMARY) HYPERTENSION (6) URI (upper respiratory infection) Code(s): J06.9 - ACUTE UPPER RESPIRATORY INFECTION, UNSPECIFIED (7) Weakness Code(s): R53.1 - WEAKNESS (8) Esau-tachy syndrome Code(s): I49.5 - SICK SINUS SYNDROME Assessment/Plan START TAMIFLU 30MG BID FOR INFLUENZA PROPHYLAXIS BACTRIM DS BID FOR UTI PT EVAL CARDIAC ABLATION OUTPATIENT [facility]
[2017-04-19] MEDS: SULFAMETHOXAZOLE/TRIMETHOPRIM 800MG/160MG D.S. TABLET PO SCH ×2 (14:38→21:57)
[2017-04-19] MEDS: WARFARIN NA 5 MG TABLET (UD) PO SCH (17:03)
--- NOTE | 2017-04-19 17:07 | PN ---
Progress Note (short form) - Note Progress Note: CC: palps S: lopressor 25 mg changed to toprol 12.5 mg/day this morning. started on bactrim and tamflu today. still no recurrence of palps but fatigue remains. no cp, sob, dizziness. Urine culture +. Current Medications Albuterol/Ipratropium (Duoneb -) 1 amp NEB RQID [facility] Last Admin: 04/19/17 15:57 Dose: 1 amp Amiodarone HCl (Cordarone -) 200 mg PO DAILY [facility] Last Admin: 04/19/17 09:21 Dose: 200 mg Atorvastatin Calcium (Lipitor -) 20 mg PO HS [facility] Last Admin: 04/18/17 21:40 Dose: Not Given Metoprolol Succinate (Toprol Xl -) 12.5 mg PO DAILY [facility] Last Admin: 04/19/17 09:21 Dose: 12.5 mg Oseltamivir Phosphate (Tamiflu -) 30 mg PO BID [facility] Stop: 04/24/17 21:59 Trimethoprim/Sulfamethoxazole (Bactrim Ds -) 1 each PO BID [facility] Last Admin: 04/19/17 14:38 Dose: 1 each Warfarin Sodium (Coumadin -) 5 mg PO DAILY@1800 [facility] Last Admin: 04/18/17 17:22 Dose: 5 mg Vital Signs - 24 hr 04/18/17 04/18/17 04/18/17 18:00 20:00 21:00 Temperature 98.5 F 98.1 F Pulse Rate 63 61 Respiratory 20 20 Rate Blood Pressure 123/59 122/59 O2 Sat by Pulse 94 L Oximetry (%) 04/19/17 04/19/17 04/19/17 02:00 06:00 09:42 Temperature 98.3 F 98.2 F 98.2 F Pulse Rate 68 70 70 Respiratory 20 20 20 Rate Blood Pressure 134/70 O2 Sat by Pulse 96 Oximetry (%) 04/19/17 13:34 Temperature 98.3 F Pulse Rate 65 Respiratory 16 Rate Blood Pressure 110/51 O2 Sat by Pulse Oximetry (%) GENERAL: The patient is awake, alert, and fully oriented, in no acute distress. HEAD: Normal with no signs of trauma. Neck: JVD flat, neck supple. LUNGS: Clear to auscultation bilaterally/slightly diminshed air mov't. Normal excursion and effort. No respiratory distress or use of accessory muscles. CV: RRR, S1/S2, no MRG. Cap refill < 2 sec. ABDOMEN: Soft, non-distended, NT, no hepatomegaly + BS EXTREMITIES: Normal range of motion, no edema, cyanosis or clubbing. NEUROLOGICAL: aaox3 SKIN: No jaundice, diaphoresis + dp/pt no carotid bruit no CBC, BMP today 04/19/17 04/19/17 07:20 07:20 INR 1.79 H D Magnesium 2.2 TSH 3.26 EKG 04/17: nsr, diffuse non-specific st-t wave ab, prolonged qt. similar st-t wave morphology to priors. EKG 04/18: no sig change. EKG 04/19: diffuse t wave flattening. likely normal qt interval with prominent u wave, but cannot rule out mildly prolonged qt. tele: nsr echo 07/2016: nl lv/rv. 1+ lae. 1+ mr. mild-mod tr. mod pr. nl rvsp. CXR: No acute pulmonary disease. similar to priors head ct: minimal microvascular changes. atherosclerosis of the carotids. paranasal sinus disease. 86 yo smoker with a history of A. fib on Coumadin/amiodarone, htn, mild mr, gerd , diverticulosis who presents with cough/dizziness and noted to have mild troponin elevation paroxysmal atrial fibrillation - con't AC with coumadin, dosing per inr. No need for additional ASA, will d/ c. - counseled to decrease etoh consumption. - currently in sinus rhythm, but with recent increase in frequency of palps on amiodarone over the past couple of months --> As outpatient, tried dilt without improvement in sx's. Also tried inderal but it caused hypotension and bradycardia. Had previously tried metoprolol without effect. --> referred for ablation. Was evaluated by EP at [facility] 2 weeks ago and has plan for ablation. Here, patient was given daily lopressor and has not had recurrence of palpitations and no atrial arrhythmia on telemetry, but slight drop in bp. con 't amiodarone. Trial of toprol at lower dose (12.5 mg) today 04/19, unclear if fatigue is from toprol or UTI - repeat tsh wnl. lyte repletion prn. - outpt f/u with dr david dizziness - currently resolved. - frequently occurs after episode of SVT/afib and patient with increased freq of palps. Therefore may have been secondary to a prolonged episode of afib/ svt. - per report, had also been taking coricidin as a cough suppressent --> may have caused dizziness. - will check orthostatics in am --> still pending. - neuro following. carotid u/s and head ct overall unremarkable. troponin elevation - borderline intermediate troponin (0.08), similar to prior trop level (0.05 in january). flat trend x3. No concern for ACS. - patient with long-standing st-twave abnormalities, unchanged here. - no need for additional asa. prolonged qt - initial ECG with QT >500 msec. rpt ECG improved (460-470 msec). - risk of torsades on amio with qt < 500 is considered extremely low (per EP discussions) - K wnl. will check magnesium. Repeat ekg 04/19 with diffuse twave flattening. likely normal qt interval with prominent u wave, but cannot exclude mildly prolonged qt. Ok to continue amiodarone for now, with outpatient EKG follow up. - tele so far benign + tobacco - tobacco cessation counseling
[2017-04-19] MEDS ORDERED: ACETAMINOPHEN 325 MG TABLET (FP) PO ONE (20:57)
[2017-04-19] MEDS ORDERED: PT OWN MED DRAWER 7, Y5N ONE (21:46)
[2017-04-19] MEDS: ATORVASTATIN CA 20 MG TABLET (FP) PO SCH (21:57)
[2017-04-19] MEDS: OSELTAMIVIR PHOSPHATE 30 MG CAPSULE PO SCH (22:56)
--- NOTE | 2017-04-19 23:19 | EKG ---
Test Reason : Blood Pressure : / mmHG Vent. Rate : 062 BPM Atrial Rate : 062 BPM P-R Int : 152 ms QRS Dur : 086 ms QT Int : 464 ms P-R-T Axes : 057 028 030 degrees QTc Int : 470 ms NORMAL SINUS RHYTHM NONSPECIFIC ST AND T WAVE ABNORMALITY PROLONGED QT ABNORMAL ECG WHEN COMPARED WITH ECG OF 18-APR-2017 10:01, Confirmed by DAMON SO MD ([id number]) on 04/19/2017 11:19:03 PM Referred By: Confirmed By:DAMON SO MD
[2017-04-20] MEDS: ALBUTEROL SO4 2.5/IPRATROPIUM 0.5 INH SOL 3 ML VIAL.NEB. NEB SCH ×2 (08:10→11:30)
[2017-04-20] MEDS ORDERED: PT OWN MED DRAWER 7, Y5N ONE (09:47)
[2017-04-20] MEDS: SULFAMETHOXAZOLE/TRIMETHOPRIM 800MG/160MG D.S. TABLET PO SCH (09:56)
[2017-04-20] MEDS: OSELTAMIVIR PHOSPHATE 30 MG CAPSULE PO SCH (09:56)
[2017-04-20] MEDS: metoPROLOL SUCCINATE 25 MG TAB.SR.24H (FP) PO SCH (09:56)
[2017-04-20] MEDS: AMIODARONE HCL 200 MG TABLET (FP) PO SCH (09:56)
--- NOTE | 2017-04-20 10:52 | PN ---
Progress Note (short form) - Note Progress Note: CC: palps S: started on bactrim and tamflu yesterday. weakness improved today. no cp, sob, dizziness. Current Medications Albuterol/Ipratropium (Duoneb -) 1 amp NEB RQID [facility] Last Admin: 04/20/17 08:10 Dose: 1 amp Amiodarone HCl (Cordarone -) 200 mg PO DAILY [facility] Last Admin: 04/20/17 09:56 Dose: 200 mg Atorvastatin Calcium (Lipitor -) 20 mg PO HS [facility] Last Admin: 04/19/17 21:57 Dose: 20 mg Metoprolol Succinate (Toprol Xl -) 12.5 mg PO DAILY [facility] Last Admin: 04/20/17 09:56 Dose: 12.5 mg Oseltamivir Phosphate (Tamiflu -) 30 mg PO BID [facility] Stop: 04/24/17 21:59 Last Admin: 04/20/17 09:56 Dose: 30 mg Trimethoprim/Sulfamethoxazole (Bactrim Ds -) 1 each PO BID [facility] Last Admin: 04/20/17 09:56 Dose: 1 each Warfarin Sodium (Coumadin -) 5 mg PO DAILY@1800 [facility] Last Admin: 04/19/17 17:03 Dose: 5 mg Vital Signs - 24 hr 04/19/17 04/19/17 04/19/17 13:34 18:00 21:00 Temperature 98.3 F 97.8 F Pulse Rate 65 65 Pulse Rate [ 63 Left side Sitting] Pulse Rate [ 65 Left side Standing] Pulse Rate [ 62 Left side Supine] Respiratory 16 18 18 Rate Blood Pressure 110/51 123/59 Blood Pressure 126/52 [Left side Sitting] Blood Pressure 125/59 [Left side Standing] Blood Pressure 121/53 [Left side Supine] O2 Sat by Pulse 96 Oximetry (%) 04/19/17 04/20/17 04/20/17 22:00 02:00 05:48 Temperature 98.5 F 98.6 F 98.3 F Pulse Rate 61 61 66 Pulse Rate [ Left side Sitting] Pulse Rate [ Left side Standing] Pulse Rate [ Left side Supine] Respiratory 18 18 18 Rate Blood Pressure 134/47 130/62 133/88 Blood Pressure [Left side Sitting] Blood Pressure [Left side Standing] Blood Pressure [Left side Supine] O2 Sat by Pulse Oximetry (%) 04/20/17 09:54 Temperature 98.2 F Pulse Rate 64 Pulse Rate [ Left side Sitting] Pulse Rate [ Left side Standing] Pulse Rate [ Left side Supine] Respiratory 18 Rate Blood Pressure 112/54 Blood Pressure [Left side Sitting] Blood Pressure [Left side Standing] Blood Pressure [Left side Supine] O2 Sat by Pulse Oximetry (%) Intake & Output 04/18/17 04/19/17 04/20/17 04/21/17 07:59 07:59 07:59 07:59 Intake Total 1100 350 Balance 1100 350 Weight 127 lb 6.4 oz 125 lb 125 lb 8 oz GENERAL: The patient is awake, alert, and fully oriented, in no acute distress. HEAD: Normal with no signs of trauma. Neck: JVD flat, neck supple. LUNGS: Clear to auscultation bilaterally/slightly diminshed air mov't. Normal excursion and effort. No respiratory distress or use of accessory muscles. CV: RRR, S1/S2, no MRG. Cap refill < 2 sec. ABDOMEN: Soft, non-distended, NT, no hepatomegaly + BS EXTREMITIES: Normal range of motion, no edema, cyanosis or clubbing. NEUROLOGICAL: aaox3 SKIN: No jaundice, diaphoresis + dp/pt no carotid bruit no CBC, BMP 04/18/17 06:30 04/18/17 06:30 Microbiology 04/17/17 13:20 Urine - Urine Clean Catch Urine Culture - Final Escherichia Coli Laboratory Tests 04/19/17 07:20 INR 1.79 H D EKG 04/17: nsr, diffuse non-specific st-t wave ab, prolonged qt. similar st-t wave morphology to priors. EKG 04/18: no sig change. EKG 04/19: diffuse t wave flattening. likely normal qt interval with prominent u wave, but cannot rule out mildly prolonged qt. tele: nsr echo 07/2016: nl lv/rv. 1+ lae. 1+ mr. mild-mod tr. mod pr. nl rvsp. CXR: No acute pulmonary disease. similar to priors head ct: minimal microvascular changes. atherosclerosis of the carotids. paranasal sinus disease. 86 yo smoker with a history of A. fib on Coumadin/amiodarone, htn, mild mr, gerd , diverticulosis who presents with cough/dizziness and noted to have mild troponin elevation paroxysmal atrial fibrillation - con't AC with coumadin, dosing per inr. No need for additional ASA - counseled to decrease etoh consumption. - currently in sinus rhythm, but with recent increase in frequency of palps on amiodarone over the past couple of months --> As outpatient, tried dilt without improvement in sx's. Also tried inderal but it caused hypotension and bradycardia. Had previously tried metoprolol without effect. --> referred for ablation. Was evaluated by EP at [facility] [place] 2 weeks ago and has plan for ablation. - Here, patient was given daily lopressor 25 mg in addition to amiodarone and has not had recurrence of palpitations and no atrial arrhythmia on telemetry. Bp's stable. Transitioned to lower dose of toprol 12.5 mg on 04/19 with stable hr's/bp's. con't amiodarone same regimen - repeat tsh wnl. lyte repletion prn. - outpt f/u with dr david dizziness/weakness. - orthostatics negative. - neuro following. carotid u/s and head ct overall unremarkable. - per report, had also been taking coricidin as a cough suppressent --> may have contributed to dizziness. - + UTI may have also contributed. - frequently was occurring after episode of SVT/afib and patient with increased freq of palps. No further dizziness, but fatigue persists despite no evidence of atrial arrhythmia on tele. Improving today 02/17 after starting tx for UTI yesterday. Sx's were likely not from arrythmia or from addition of beta [place] here. troponin elevation - borderline intermediate troponin (0.08), similar to prior trop level (0.05 in january). flat trend x3. No concern for ACS. - patient with long-standing st-twave abnormalities, unchanged here. - no need for additional asa. prolonged qt - initial ECG with QT >500 msec. rpt ECG improved (460-470 msec). - risk of torsades on amio with qt < 500 is considered extremely low (per EP discussions) - K wnl. will check magnesium. Repeat ekg 04/19 with diffuse twave flattening. likely normal qt interval with prominent u wave, but cannot exclude mildly prolonged qt (<500). Ok to continue amiodarone for now, with outpatient EKG follow up. - tele so far benign + tobacco - tobacco cessation counseling stable for d/c from CV perspective.
[2017-04-20 11:40] LABS: INR 1.96 (0.82-1.09); PROTHROMBIN TIME (PATIENT) 22.1 SEC (9.98-11.88)
[2017-04-20 11:43] LABS: ANION GAP 6 (8-16); BLOOD UREA NITROGEN 10 mg/dL (7-18); CALCIUM 8.8 mg/dL (8.5-10.1); CHLORIDE 107 mmol/L (98-107); CO2 27 mmol/L (21-32); GLUCOSE,RANDOM 89 mg/dL (74-106); POTASSIUM 4.3 mmol/L (3.5-5.1); SODIUM 140 mmol/L (136-145)
[2017-04-20 14:16] VITALS: BP 112/69; PULSE 67; TEMP 98.6
--- NOTE | 2017-04-20 15:12 | DS ---
Physical Examination Vital Signs: Vital Signs Temperature 98.6 F 04/20/17 14:15 Pulse Rate 67 04/20/17 14:15 Respiratory Rate 16 04/20/17 14:15 Blood Pressure 112/69 04/20/17 14:15 O2 Sat by Pulse Oximetry (%) 97 04/20/17 09:56 Constitutional: Yes: No Distress Eyes: Yes: WNL HENT: Yes: WNL Neck: Yes: WNL Cardiovascular: Yes: Pulse Irregular Respiratory: Yes: WNL Gastrointestinal: Yes: WNL Renal/: Yes: WNL Musculoskeletal: Yes: WNL Extremities: Yes: WNL Edema: No Peripheral Pulses WNL: Yes Integumentary: Yes: WNL Wound/Incision: Yes: Clean/Dry Neurological: Yes: WNL ...Motor Strength: WNL Psychiatric: Yes: WNL Labs: CBC, BMP 04/18/17 06:30 04/20/17 11:12 Discharge Summary Reason For Visit: DIZZINESS Current Active Problems Afib (Acute) Dizziness (Acute) Elevated troponin (Acute) HTN (hypertension) (Acute) URI (upper respiratory infection) (Acute) UTI (urinary tract infection) (Acute) Weakness (Acute) Procedures: Principal: CT HEAD Hospital Course: ADMITTED CARDIAC AND NEURO WORKUP, SYNCOPE AND DIZZINESS WITH PALPITATIONS Condition: Stable - Instructions Diet, Activity, Other Instructions: LOW SODIUM SEE DR URBAN ON WednesdayApr INR CHECK Referrals: Tisha Urban MD [Primary Care Provider] - - Home Medications Comprehensive Discharge Medication List: Ambulatory Orders Amiodarone HCl 200 mg PO DAILY 04/17/17 Warfarin Sodium [Coumadin] 5 mg PO MOWEFR 04/17/17 Warfarin Sodium [Coumadin] 6 mg PO ASDIR 04/17/17 Aspirin Coated [Ecotrin -] 81 mg PO DAILY tablet.ec 04/20/17 Atorvastatin Ca [Lipitor] 20 mg PO HS tablet 04/20/17 Metoprolol Succinate [Toprol XL -] 12.5 mg PO DAILY #30 tab.sr.24h 04/20/17 Metoprolol Succinate [Toprol Xl] 12.5 mg PO DAILY #30 tab.er.24h 04/20/17 Oseltamivir Phosphate [Tamiflu -] 30 mg PO BID 8 Days capsule 04/20/17 Oseltamivir Phosphate [Tamiflu] 30 mg PO BID #16 capsule MDD 2 04/20/17 Sulfamethoxazole/Trimethoprim [Bactrim DS -] 1 each PO BID 3 Days tablet Sulfamethoxazole/Trimethoprim [Bactrim Ds -] 1 tab PO BID #6 tablet 04/20/17
[2017-04-20] MEDS: WARFARIN NA 5 MG TABLET (UD) PO SCH (15:51)
== END 2017-04-20 16:10 | disposition home or self-care (01) | DRG 690 ==
LOC: SUPCPDRO 10:16 → JER 10:16 → JERBED 12:16 → J4S 17:27
PROVIDERS: ADMIT Family Medicine; ATTEND Family Medicine
DX: N39.0 Urinary tract infection, site not specified (principal); I48.0 Paroxysmal atrial fibrillation; R42 Dizziness and giddiness; I10 Essential (primary) hypertension; J06.9 Acute upper respiratory infection, unspecified; R55 Syncope and collapse; F17.210 Nicotine dependence, cigarettes, uncomplicated; R53.1 Weakness; R74.8 Abnormal levels of other serum enzymes; K21.9 Gastro-esophageal reflux disease without esophagitis
CPT/HCPCS: 36415; 70450-TC; 71045-TC-FY; 80048; 80053; 80061; 81003; 81015; 82550; 83036; 83721; 83735; 84443; 84484; 85025; 85610; 87086; 87186; 87254; 87804; 93005; 93010; 93306-TC; 94640; 97116-GP; 97161-GP; 99285-25

== ENCOUNTER 2017-10-26 06:29 | Inpatient (IN) | payer OTHER, MEDICARE ==
[2017-10-13 14:21] VITALS: BMI 21.9
[2017-10-26] MEDS ORDERED: CELECOXIB 200 MG CAPSULE PO ONE (07:19)
[2017-10-26] MEDS ORDERED: TRANEXAMIC ACID 1000 MG/10 ML VIAL IVPUSH ONE (07:19)
[2017-10-26] MEDS ORDERED: CEFAZOLIN 1 GM/D5W 1 GRAM/50 ML BAG IVPB ONE (07:19)
[2017-10-26] MEDS ORDERED: GABAPENTIN 300 MG CAPSULE (FP) PO ONE (07:19)
[2017-10-26 07:34] LABS: INR 0.97 (0.82-1.09); PROTHROMBIN TIME (PATIENT) 10.9 SEC (10.2-13.0)
[2017-10-26] MEDS ORDERED: ceFAZolin SODIUM 1 GM VIAL ONE ×2 (07:51→09:09)
[2017-10-26] MEDS ORDERED: VANCOMYCIN 1,000 MG VIAL (RESTRICTED TO ID ONLY) ONE (07:52)
--- NOTE | 2017-10-26 07:55 | HP ---
[facility] - Chief Complaint Chief Complaint: right hip pain - Past Medical History Allergies/Adverse Reactions: Allergies Allergy/AdvReac Type Severity Reaction Status Date / Time No Known Drug Allergies Allergy Verified 10/13/17 14:08 Cardiovascular: Yes: AFIB, HTN, Hyperlipdemia Gastrointestinal: Yes: GERD - Current Medications Current Medications: Home Medications Medication Instructions Recorded Warfarin Sodium [Coumadin] 5 mg PO MOWEFR 04/17/17 Warfarin Sodium [Coumadin] 6 mg PO ASDIR 04/17/17 Calcium Carbonate/Vitamin D3 1 each PO DAILY 10/13/17 [Calcium 600 + Vit D3 Caplet] Docusate Sodium [Dulcolax Stool 100 mg PO HS 10/13/17 Softener] Ferrous Fumarate/Ascorbic Acid 1 each PO DAILY 10/13/17 [Nasima-Sequels 65-25 mg Caplet] Sennosides [Senokot] 8.6 mg PO HS 10/13/17 Vit C/Vit E AC/Lut/Copper/Zinc 1 each PO DAILY 10/13/17 [Preservision Softgel] Enoxaparin [Lovenox -] 60 mg SQ BID 10/26/17 [facility]ellite Physical Exam - Physical Examination General Appearance: Well Nourished, Well Developed, Alert & Oriented x3 ENT: Clear Lung: Normal air movement Heart: Regular rate & rhythm Extremities: Other (right hip- + ttp, decr rom ,nvi xrays show grade 4 hip djd) Neurological: Intact, Alert, Oriented [facility]ellite Impression/Plan - Impression/Plan Impression: right hip djd Operative Procedure: right gordon thr Date to be Performed: 10/26/17
[2017-10-26] MEDS ORDERED: ONDANSETRON 4 MG/2 ML VIAL ONE (09:09)
[2017-10-26] MEDS ORDERED: DEXAMETHASONE SOD PHOSPHATE 4 MG/1 ML VIAL ONE (09:09)
[2017-10-26] MEDS ORDERED: LIDOCAINE HCL/PF 2% SDV 5ML VIAL ONE (09:09)
[2017-10-26] MEDS ORDERED: PROPOFOL 20 ML ONE (09:09)
[2017-10-26] MEDS ORDERED: MIDAZOLAM HCL 2 MG/2 ML SINGLE DOSE VIAL ONE (09:10)
[2017-10-26] MEDS ORDERED: SUCCINYLCHOLINE CHLORIDE 200 MG/10 ML VIAL ONE (09:10)
[2017-10-26] MEDS ORDERED: ROCURONIUM BROMIDE 50 MG/5 ML VIAL ONE (09:10)
[2017-10-26] MEDS ORDERED: fentaNYL CITRATE 250 MCG/5 ML VIAL ONE (09:10)
[2017-10-26] MEDS ORDERED: GLYCOPYRROLATE 0.2 MG/1 ML VIAL ONE (10:41)
[2017-10-26] MEDS ORDERED: NEOSTIGMINE METHYLSULFATE 0.5 MG/ML - 10 ML MDV ONE (10:41)
[2017-10-26] MEDS ORDERED: ONDANSETRON 4 MG/2 ML VIAL IVPUSH PRN (10:59)
[2017-10-26] MEDS ORDERED: MAGNESIUM HYDROX 2400MG/30ML ORAL SUSPENSION 30 ML CUP PO PRN (10:59)
[2017-10-26] MEDS ORDERED: MAG HYDROX/AL HYDROX/SIMETH 30 ML UNIT-DOSE CUP PO PRN (10:59)
[2017-10-26] MEDS ORDERED: LACTATED RINGERS SOLUTION 1,000 ML IV SCH (11:00)
--- NOTE | 2017-10-26 11:01 | OP ---
Operative Note - Note: Operative Date: 10/26/17 ([place]) Pre-Operative Diagnosis: right hip djd Operation: right gordon thr Post-Operative Diagnosis: Same as Pre-op Surgeon: Dada Bray Director Community Organization: [employer]rera Anesthesiologist/DIRECTOR NURSES' REGISTRY: Silas Hoyt Anesthesia: General, Local Specimens Removed: femoral head Estimated Blood Loss (mls): 100 Operative Report Dictated: Yes
[2017-10-26] MEDS ORDERED: ceFAZolin SODIUM 1 GM VIAL IVPB ONE (11:03)
[2017-10-26] MEDS ORDERED: VANCOMYCIN 1,000 MG VIAL (RESTRICTED TO ID ONLY) IVPB ONE (11:04)
[2017-10-26] MEDS: ACETAMINOPHEN 325 MG TABLET (FP) PO SCH ×3 (12:01→18:06)
--- NOTE | 2017-10-26 16:31 | SPEC ---
DATE OF OPERATION: 10/26/2017 PREOPERATIVE DIAGNOSIS: Degenerative joint disease right hip. POSTOPERATIVE DIAGNOSIS: Degenerative joint disease right hip. PROCEDURE PERFORMED: Right total hip replacement with robotic-assisted navigation (MAKOplasty). SURGICAL ATTENDING: Dada Bray MD SOLUTION LEAD: DILLON Clark ANESTHESIA: General. CLOSURE: A [place] total hip system along with a 48 Tritanium Trident II Press-Fit acetabulum, a number 7 Accolade II stem, and a MDM head. Number 1 Vicryl for fascia, 0 and 2-0 subcutaneous, 3-0 Monocryl subcuticular with skin glue for the skin, 4-0 undyed Vicryl for pin sites. ESTIMATED BLOOD LOSS: Less than 100 mL. COMPLICATIONS: None. CONDITION: To the recovery room in stable condition. DESCRIPTION OF PROCEDURE: The patient was taken to the operating room on October 26, 2017. General and regional anesthesia was administered by the anesthesiologist. IV Kefzol and TXA were administered prophylactically prior to the case. The patient was placed in the lateral decubitus position will all prominences well-padded. The right hip area was prepped and draped in the usual sterile fashion. Using 3 small stab incisions over the iliac crest, 3 threaded pins were drilled in power fashion through the 2 tables of the crest. These pins were fastened and the navigation array for the Mikel navigation system. Next, a 12 to 15-cm curved longitudinal incision over the posterolateral aspect of the greater trochanter was incised. Hemostasis was achieved with Bovie cautery. Sharp dissection was carried down to level of the fascia. The fascia was opened the entire length of the incision, spreading the fibers of the gluteus sunday in the direction of origin. A Charnley retractor was placed in this layer. Care was taken not to impale the sciatic nerve. The short external rotators were detached off the insertion of the greater trochanter and peeled off the capsule. A posterior capsulotomy was then performed. A check point was malleted into the greater trochanter and a point on the inferior pole of the patella was obtained as well. These 2 points were used to assess the preoperative offset and limb lengths of the hip. The hip was then dislocated. The femoral neck was then osteotomized down to the appropriate level as directed by the navigation device. Anterior and posterior retractors were placed, exposing the acetabulum. A circumferential labral excision was performed. A check point was malleted into the acetabulum as well. Multiple sites inside the acetabulum and around the rim were utilized to register the acetabulum with the navigation device. An excellent registration of less than 0.5 mm was obtained. The hip was then reamed with the appropriate reamer down to the appropriate depth, with the appropriate orientation and version as assessed on our preoperative plan for this patient. The reamer was removed and the acetabulum was inspected to have good bleeding surfaces throughout. The real acetabular cup was then malleted down into place, with the holes in the appropriate position, until an excellent fixation was obtained. No screws were necessary. The navigation device ensured appropriate orientation and version, with the depth as predetermined. The appropriate liner was then clipped into place. Attention was directed to the femur. The proximal femur was prepared by use a box chisel, a canal finder and serial broaches until the broach achieved excellent rigidity in the proximal femur with the appropriate version being applied. A calcar planer was used to smooth off the calcar flush with the trial components. A trial reduction with the appropriate head was done, and the hip was reduced. The hip was taken through a range of motion from full extension with external rotation to marked flexion, and was stable at 90 degrees of flexion. It was stable to marked abduction and internal rotation, with a positive hang test and negative telescoping. Limb lengths were ascertained visually as well as with the navigation device to be within the targeted range for this patient. The trial component was removed. The real component was then malleted into place. The head was cold welded to the trunnion, and the hip was reduced. Range of motion, stability and limb lengths were as described in the trial component. Then the hip was pulse antibiotic irrigated. Vancomycin powder was placed in the hip joint. The capsule was closed. The fascia was then closed as well using number 1 Vicryl interrupted suture, 0 and 2-0 subcutaneous, and 3-0 Monocryl subcuticular for the skin. 4-0 undyed Vicryl was used to close the pin sites after the pins were removed. All check points were also removed. Sterile Aquacel dressing was applied. The patient was awakened from anesthesia and transferred into the supine position. Bilateral SCDs and an abduction pillow were placed. X-rays revealed excellent position of the components. The patient was transferred to the recovery room in stable condition, with no complications. Estimated blood loss was less than 100 mL. Nam CARRILLO/[id number]
[2017-10-26] MEDS ORDERED: WARFARIN NA 3 MG TABLET PO SCH (18:00)
[2017-10-26] MEDS: CEFAZOLIN 1 GM/D5W 1 GRAM/50 ML BAG IVPB SCH (18:05)
[2017-10-26] MEDS: SENNOSIDES/DOCUSATE COMBO (SENNA PLUS) TABLET (UD) PO SCH (21:10)
[2017-10-26] MEDS: GABAPENTIN 300 MG CAPSULE (FP) PO SCH (21:11)
[2017-10-26] MEDS: oxyCODONE HCL 5 MG TABLET PO PRN (21:11)
[2017-10-26] MEDS ORDERED: SENNOSIDES 8.6MG TABLET (FP) PO SCH (22:00)
[2017-10-27] MEDS: ACETAMINOPHEN 325 MG TABLET (FP) PO SCH ×5 (00:29→18:51)
[2017-10-27] MEDS: CEFAZOLIN 1 GM/D5W 1 GRAM/50 ML BAG IVPB SCH (01:26)
[2017-10-27] MEDS: oxyCODONE HCL 5 MG TABLET PO PRN ×4 (02:48→21:46)
--- NOTE | 2017-10-27 08:12 | PN ---
Progress Note (short form) - Note Progress Note: Ortho Pt seen and examined s/p right gordon thr pod #1 Selected Entries 10/27/17 05:00 Temperature 98.4 F Pulse Rate 72 Respiratory 20 Rate Blood Pressure 94/42 Laboratory Tests 10/27/17 07:32 WBC Pending Hgb Pending Hct Pending Plt Count Pending dressing c/d/i, calf soft, nt nvi a/p PT hip precautions dvt ppx pain control d/c planning for snf
[2017-10-27 08:20] LABS: HEMATOCRIT 31.5 % (32.4-45.2); HEMOGLOBIN 10.7 GM/dl (10.7-15.3); MCH 32.4 pg (25.7-33.7); MEAN CELL VOLUME 95.2 fl (80-96); MEAN PLT VOLUME 9.7 fl (7.5-11.1); PLATELET COUNT 161 K/MM3 (134-434); RBC 3.31 M/mm3 (3.60-5.2); RDW 13.5 % (11.6-15.6); WHITE BLOOD COUNT 8.2 K/mm3 (4.0-10.8)
[2017-10-27] MEDS: SENNOSIDES/DOCUSATE COMBO (SENNA PLUS) TABLET (UD) PO SCH ×2 (09:31→21:43)
[2017-10-27] MEDS: MULTIVITAMINS (DAILY MVI) TABLET (FP) PO SCH (09:31)
[2017-10-27] MEDS: PANTOPRAZOLE 40 MG TABLET (FP) PO SCH (09:31)
[2017-10-27] MEDS: GABAPENTIN 300 MG CAPSULE (FP) PO SCH ×2 (09:31→21:43)
[2017-10-27] MEDS ORDERED: PATIENT'S OWN MEDICATION (NON-FORMULARY) (Ferrous Fumarate/Ascorbic Acid [Ferro-Sequels 65 PO SCH (10:00)
--- NOTE | 2017-10-27 10:50 | PN ---
Progress Note (short form) - Note Progress Note: 87F POD1 s/p R THR under spinal anesthetic with peripheral nerve blocks for post operative pain relief. Pt states that pain is well controlled and reports no anesthetic complications. AVSS. Motor and sensory function intact in bilateral lower extremities. Continue current regimen.
[2017-10-27] MEDS ORDERED: WARFARIN NA 5 MG TABLET (UD) PO SCH (18:00)
[2017-10-28] MEDS: oxyCODONE HCL 5 MG TABLET PO PRN ×2 (06:20→09:31)
[2017-10-28] MEDS: ACETAMINOPHEN 325 MG TABLET (FP) PO SCH ×4 (06:20→23:59)
[2017-10-28 08:20] LABS: HEMOGLOBIN 10.8 GM/dl (10.7-15.3); MCH 32.1 pg (25.7-33.7)
[2017-10-28 08:30] LABS: HEMATOCRIT 32.2 % (32.4-45.2); MCHC 33.6 g/dl (32.0-36.0); MEAN CELL VOLUME 95.5 fl (80-96); MEAN PLT VOLUME 9.5 fl (7.5-11.1); PLATELET COUNT 165 K/MM3 (134-434); RBC 3.37 M/mm3 (3.60-5.2); RDW 13.1 % (11.6-15.6); WHITE BLOOD COUNT 9.8 K/mm3 (4.0-10.8)
[2017-10-28] MEDS: SENNOSIDES/DOCUSATE COMBO (SENNA PLUS) TABLET (UD) PO SCH ×2 (09:28→21:34)
[2017-10-28] MEDS: MULTIVITAMINS (DAILY MVI) TABLET (FP) PO SCH (09:29)
[2017-10-28] MEDS: GABAPENTIN 300 MG CAPSULE (FP) PO SCH ×2 (09:29→21:34)
[2017-10-28] MEDS: PANTOPRAZOLE 40 MG TABLET (FP) PO SCH (09:31)
[2017-10-28] MEDS ORDERED: SENNOSIDES 8.6MG TABLET (FP) PO SCH (11:30)
[2017-10-28 12:11] LABS: INR 1.09 (0.82-1.09); PROTHROMBIN TIME (PATIENT) 12.2 SEC (10.2-13.0)
[2017-10-28 12:15] LABS: ALBUMIN 2.9 g/dl (3.5-5.0); ALK PHOS 57 U/L (32-92); ANION GAP 7 MMOL/L (8-16); BILIRUBIN,TOTAL 1.2 mg/dl (0.2-1.0); BLOOD UREA NITROGEN 11 mg/dl (7-18); CALCIUM 8.1 mg/dl (8.4-10.2); CHLORIDE 103 mmol/L (98-107); CO2 25 mmol/L (22-28); CREATININE 0.7 mg/dl (0.6-1.3); GLUCOSE,RANDOM 110 mg/dl (74-106); MAGNESIUM 1.6 mg/dL (1.8-2.4); POTASSIUM 3.7 mmol/L (3.5-5.1); SGOT/AST 39 U/L (10-42); SGPT/ALT 25 U/L (10-40); SODIUM 135 mmol/L (136-145); TOT PROT 5.8 g/dl (6.4-8.3)
[2017-10-28] MEDS: POLYETHYLENE GLYCOL 3350 119 GM BTL PO SCH ×2 (14:00→21:34)
--- NOTE | 2017-10-28 14:06 | CONSULT ---
Consultation: REQUESTING PROVIDER: Dr. Urban CONSULT REQUEST: We have been asked to medically evaluate this patient perioperatively. HISTORY OF PRESENT ILLNESS: 87 year-old female with a PMH significant for HTN, HLD, afib on coumadin, and DJD s/p right total hip replacement on 10/26. Patient advises for the one week period prior to surgery, she stopped taking her coumadin and self-injected Lovenox 60mg subq twice daily. Her last dose of Lovenox was on the evening of . Coumadin was resumed on the evening of 10/26. INR today is 1.0. REVIEW OF SYSTEMS: CONSTITUTIONAL: Absent: fever, chills, diaphoresis, generalized weakness, malaise, loss of appetite, weight change HEENT: Absent: rhinorrhea, nasal congestion, throat pain, throat swelling, difficulty swallowing, mouth swelling, ear pain, eye pain, visual changes CARDIOVASCULAR: Absent: chest pain, syncope, palpitations, irregular heart rate, lightheadedness , peripheral edema RESPIRATORY: Absent: cough, shortness of breath, dyspnea with exertion, orthopnea, wheezing, stridor, hemoptysis GASTROINTESTINAL: Absent: abdominal pain, abdominal distension, nausea, vomiting, diarrhea, constipation, melena, hematochezia GENITOURINARY: Absent: dysuria, frequency, urgency, hesitancy, hematuria, flank pain, genital pain MUSCULOSKELETAL: Absent: myalgia, arthralgia, joint swelling, back pain, neck pain SKIN: Absent: rash, itching, pallor HEMATOLOGIC/IMMUNOLOGIC: Absent: easy bleeding, easy bruising, lymphadenopathy, frequent infections ENDOCRINE: Absent: unexplained weight gain, unexplained weight loss, heat intolerance, cold intolerance NEUROLOGIC: Absent: headache, focal weakness or paresthesias, dizziness, unsteady gait, seizure, mental status changes, bladder or bowel incontinence PSYCHIATRIC: Absent: anxiety, depression, suicidal or homicidal ideation, hallucinations. PHYSICAL EXAMINATION Vital Signs Temperature 98.9 F 10/28/17 14:00 Pulse Rate 83 10/28/17 14:00 Respiratory Rate 18 10/28/17 14:00 Blood Pressure 84/42 10/28/17 14:00 O2 Sat by Pulse Oximetry (%) 95 10/28/17 14:00 GENERAL: Awake, alert, and fully oriented, in no acute distress. LUNGS: CTA HEART: RRR, S1, S2 ABDOMEN: Soft, nontender, not distended UPPER EXTREMITIES: 2+ pulses, warm, well-perfused. No cyanosis. No clubbing. Cap refill <2 seconds. No peripheral edema. LOWER EXTREMITIES: 2+ pulses, warm, well-perfused. No calf tenderness. No peripheral edema; right thigh surgical dressing c/d/i NEUROLOGICAL: Cranial nerves II-XII intact. Normal speech. Laboratory Results - last 24 hr 10/28/17 10/28/17 10/28/17 07:30 11:54 11:54 WBC 9.8 RBC 3.37 L Hgb 10.8 Hct 32.2 L MCV 95.5 MCH 32.1 MCHC 33.6 RDW 13.1 Plt Count 165 MPV 9.5 PT with INR 12.2 INR 1.09 Sodium 135 L Potassium 3.7 Chloride 103 Carbon Dioxide 25 Anion Gap 7 L BUN 11 Creatinine 0.7 Creat Clearance w eGFR > 60 Random Glucose 110 H Calcium 8.1 L Magnesium 1.6 L Total Bilirubin 1.2 H AST 39 ALT 25 Alkaline Phosphatase 57 Total Protein 5.8 L Albumin 2.9 L Active Medications Generic Name Dose Route Start Last Admin Trade Name Freq PRN Reason Stop Dose Admin Acetaminophen 650 mg 10/26/17 12:00 10/28/17 06:20 Tylenol - PO 10/29/17 11:59 650 mg Q6H VANESA Administration Al Hydroxide/Mg Hydroxide 30 ml 10/26/17 10:59 Mylanta Oral Suspension - PO Q4H PRN DYSPEPSIA Gabapentin 300 mg 10/26/17 22:00 10/28/17 09:29 Neurontin - PO 300 mg BID VANESA Administration Magnesium Hydroxide 30 ml 10/26/17 10:59 Milk Of Magnesia - PO PRN PRN CONSTIPATION Multivitamins/Minerals/Vitamin C 1 tab 10/27/17 10:00 10/28/17 09:29 Tab-A-Vit - PO 1 tab DAILY VANESA Administration Ondansetron HCl 4 mg 10/26/17 10:59 Zofran Injection IVPUSH Q6H PRN NAUSEA Oxycodone HCl 5 mg 10/28/17 11:33 Roxicodone - PO Q6H PRN PAIN LEVEL 7 - 10 Pantoprazole Sodium 40 mg 10/27/17 10:00 10/28/17 09:31 Protonix - PO 40 mg DAILY VANESA Administration Polyethylene Glycol 17 gm 10/28/17 11:30 Miralax (For Daily Use) - PO BID VANESA Senna/Docusate Sodium 2 tablet 10/26/17 22:00 10/28/17 09:28 Pericolace - PO 2 tablet BID VANESA Administration Warfarin Sodium 5 mg 10/27/17 18:00 10/27/17 18:50 Coumadin - PO 5 mg MOWEFR VANESA Administration Warfarin Sodium 6 mg 10/26/17 18:00 10/26/17 18:04 Coumadin - PO 6 mg SuTuThSa VANESA Administration ASSESSMENT/PLAN: 87 year-old female with a PMH significant for HTN, HLD, afib on coumadin, and DJD s/p right total hip replacement on 10/26. Atrial fibrillation --coumadin started 10/26, INR 1.0 today --start lovenox 60mg BID as bridge to coumadin Hypertension --BP has been low post-operatively today 80s/40s --get orthostatics --NS x 500mL x 1 --NS @ 42mL/hr Hyperlipidemia --not on statin s/p right total hip replacement --pain well-managed with PO meds --bowel regimen Hypomagnesemia --Mg 1.6; repleted FEN Fluids: as above Electrolytes: replete as indicated Nutrition: regular diet DVT prophylaxis: therapeutic lovenox dosing, coumadin daily dosing, INR checks Physical therapy Dispo: We will continue to follow the patient. Thank you for this consultative opportunity. Visit type - Emergency Visit Emergency Visit: No - New Patient This patient is new to me today: Yes Date on this admission: 10/28/17 - Critical Care Critical Care patient: No
[2017-10-28] MEDS ORDERED: MAGNESIUM SULF 50% (8.12 MEQ/2 ML-1 GM VIAL) IVPB ONE (17:29)
[2017-10-28] MEDS ORDERED: SODIUM CHLORIDE 500 ML IV STA (17:34)
[2017-10-28] MEDS ORDERED: MAGNESIUM SULFATE IN WATER 2 GM/50 ML IVPB IVPB ONE (17:45)
[2017-10-28] MEDS: ENOXAPARIN NA (PORCINE) 60 MG/0.6 ML DISP.SYRIN SQ SCH (21:35)
[2017-10-29] MEDS: ACETAMINOPHEN 325 MG TABLET (FP) PO SCH (06:13)
[2017-10-29 08:12] LABS: BASO % 0.2 % (0-2.0); EOS % 0.8 % (0-4.5); HEMATOCRIT 33.5 % (32.4-45.2); HEMOGLOBIN 11.3 GM/dl (10.7-15.3); LYMPH % 20.5 % (8-40); MCH 32.2 pg (25.7-33.7); MCHC 33.5 g/dl (32.0-36.0); MEAN CELL VOLUME 96.1 fl (80-96); MEAN PLT VOLUME 9.6 fl (7.5-11.1); NEUT % 70.5 % (42.8-82.8); PLATELET COUNT 191 K/MM3 (134-434); RBC 3.49 M/mm3 (3.60-5.2); RDW 13.1 % (11.6-15.6)
[2017-10-29 08:28] LABS: ALK PHOS 88 U/L (32-92); ANION GAP 5 MMOL/L (8-16); BILIRUBIN,TOTAL 1.3 mg/dl (0.2-1.0); BLOOD UREA NITROGEN 8 mg/dl (7-18); CHLORIDE 107 mmol/L (98-107); CO2 23 mmol/L (22-28); CREATININE 0.6 mg/dl (0.6-1.3); GLUCOSE,RANDOM 101 mg/dl (74-106); POTASSIUM 3.7 mmol/L (3.5-5.1); SGOT/AST 41 U/L (10-42); SGPT/ALT 21 U/L (10-40); SODIUM 135 mmol/L (136-145)
[2017-10-29 08:29] LABS: INR 1.07 (0.82-1.09)
[2017-10-29] MEDS: oxyCODONE HCL 5 MG TABLET PO PRN ×2 (08:39→14:14)
[2017-10-29] MEDS: POLYETHYLENE GLYCOL 3350 119 GM BTL PO SCH (10:03)
[2017-10-29] MEDS: PANTOPRAZOLE 40 MG TABLET (FP) PO SCH (10:03)
[2017-10-29] MEDS: MULTIVITAMINS (DAILY MVI) TABLET (FP) PO SCH (10:03)
[2017-10-29] MEDS: SENNOSIDES/DOCUSATE COMBO (SENNA PLUS) TABLET (UD) PO SCH (10:03)
[2017-10-29] MEDS: GABAPENTIN 300 MG CAPSULE (FP) PO SCH (10:03)
[2017-10-29] MEDS: ENOXAPARIN NA (PORCINE) 60 MG/0.6 ML DISP.SYRIN SQ SCH (10:04)
--- NOTE | 2017-10-29 10:09 | PN ---
Progress Note (short form) - Note Progress Note: Ortho Pt seen and examined s/p right gordon thr pod #3 Selected Entries 10/29/17 09:59 Temperature 98.6 F Pulse Rate 86 Respiratory 17 Rate Blood Pressure 105/45 Laboratory Tests 10/29/17 08:00 WBC 9.0 Hgb 11.3 Hct 33.5 Plt Count 191 dressing c/d/i, calf soft, nt nvi a/p PT hip precautions dvt ppx pain control d/c planning for snf
--- NOTE | 2017-10-29 10:10 | DS ---
Physical Examination Vital Signs: Vital Signs Temperature 98.6 F 10/29/17 09:59 Pulse Rate 86 10/29/17 09:59 Respiratory Rate 17 10/29/17 09:59 Blood Pressure 105/45 10/29/17 09:59 O2 Sat by Pulse Oximetry (%) 94 L 10/29/17 06:54 Labs: CBC, BMP 10/29/17 08:00 10/29/17 08:00 Discharge Summary Reason For Visit: OSTEOARTHRITIS Procedures: Principal: right thr Hospital Course: admitted for elective right gordon thr, uneventful post-op, stable for d/c Condition: Good - Instructions Diet, Activity, Other Instructions: Post-op Instructions-Total Hip Replacement Call the office for a follow-up appointment in 1 week - [phone] Restart Coumadin at your previous dosage. Apply Graduated Compression Stockings (TEDs) to both lower extremities- remove daily for hygiene ONLY Apply Sequential Compression Device (SCDs) to both Lower extremities remove for PT and hygiene ONLY Apply cold packs to affected area for 15 minutes every 2 hours. Physical Therapist will come to your home for the first 5 days. You will be set up with outpatient PT at your first post-operative visit. Patient may ambulate as tolerated-encourage self care (at least every 2-3 hours while awake) with walker or cane Maintain Aquacel (waterproof) dressing to operative wound (will be removed by surgeon at first office visit) Shower with Aquacel dressing in place-if Aquacel integrity compromised, remove and apply dry sterile dressing and notify Orthopedist. DO NOT SHOWER unless Orthopedists approves without Aquacel dressing CONTACT THE OFFICE FOR ANY CHANGE IN YOUR CONDITION (for example-fever greater than 102 degrees, excessive bleeding from operative site, purulent drainage, severe swelling or pain) GO TO THE EMERGENCY ROOM IF THERE IS A MEDICAL EMERGENCY Hip Precautions: * Keep a rolled towel under affected heel while in bed or chair (to keep knee in extension) * Dependent upon approach: * Posterior - do not cross legs; do not sit on low chairs or toilets. * If you have any questions, please do not hesitate to call the office - . Referrals: Dada Bray MD [Staff Physician] - Disposition: VNS/HOME HEALTH CARE - Home Medications Comprehensive Discharge Medication List: Ambulatory Orders Warfarin Sodium [Coumadin] 5 mg PO MOWEFR 04/17/17 Warfarin Sodium [Coumadin] 6 mg PO ASDIR 04/17/17 Calcium Carbonate/Vitamin D3 [Calcium 600-Vit D3 800 Caplet] 1 each PO DAILY 10/23 Docusate Sodium [Dulcolax Stool Softener] 100 mg PO HS 10/13/17 Ferrous Fumarate/Ascorbic Acid [Nasima-Sequels 65-25 mg Caplet] 1 each PO DAILY 10/13/17 Sennosides [Senokot] 8.6 mg PO HS 10/13/17 Vit C/Vit E AC/Lut/Copper/Zinc [Preservision Lutein Softgel] 1 each PO DAILY 10/23 Enoxaparin [Lovenox -] 60 mg SQ BID 10/26/17
--- NOTE | 2017-10-29 10:35 | PN ---
Physical Exam: Patient has been discharged by the surgical service. It is noted that lovenox 60mg BID was included in the discharge medication list. Visit type - Emergency Visit Emergency Visit: No - New Patient This patient is new to me today: No - Critical Care Critical Care patient: No - Discharge Referral Referred to [facility] No
[2017-10-29 12:29] VITALS: BP 111/54; PULSE 82; TEMP 97.6
--- NOTE | 2017-11-01 15:14 | PATH ---
Surgical Pathology Report Patient Name: NOEMY SEARS Med. Rec. #: [id number] /Age/Gender: 1930 (Age: 87) / F Account: [id number] Location: [facility] Taken: 10/26/2017 Received: 10/26/2017 Reported: 11/01/2017 Physicians: Dada Bray M.D. Specimen(s) Received RIGHT FEMORAL HEAD Clinical History Osteoarthritis right hip Final Diagnosis FEMORAL HEAD, RIGHT, TOTAL HIP REPLACEMENT: DEGENERATIVE JOINT DISEASE. Electronically Signed Smita Key M.D. Gross Description Received in formalin, labeled "right femoral head," is a 4.2 x 4.1 x 3.7 cm. femoral head with a 0.9 cm in length portion of femoral neck attached. The margin of resection is smooth. There is a 4 cm in greatest dimension area of eburnation present. The remaining articular surface is chan-yellow and focally granular. The underlying trabecular bone is yellow and hard. A employee's representative section is submitted in one cassette, following decalcification. 10/28/2017 [facility]10/28/2017
== END 2017-10-29 14:17 | disposition home health service (06) | DRG 470 ==
LOC: FM/S 06:29
PROVIDERS: ADMIT Orthopaedic Surgery; ATTEND Orthopaedic Surgery
PROC: 8E0W0CZ Robotic Assisted Procedure of Trunk Region, Open Approach (ICD-10-PCS; 2017-10-26)
PROC: 0SR90JA Replacement of Right Hip Joint with Synthetic Substitute, Uncemented, Open Approach (ICD-10-PCS; principal; 2017-10-26 09:30)
DX: M16.11 Unilateral primary osteoarthritis, right hip (principal); I10 Essential (primary) hypertension; E78.5 Hyperlipidemia, unspecified; K21.9 Gastro-esophageal reflux disease without esophagitis; I48.91 Unspecified atrial fibrillation; E83.42 Hypomagnesemia
CPT/HCPCS: 36415; 73523-TC-FY; 80053; 83735; 85025; 85027; 85610; 88304-TC; 88311-TC; 94760; 97116-GP; 97161-GP

== ENCOUNTER 2017-12-12 10:46 | Inpatient (IN) | payer OTHER, MEDICARE ==
[2017-12-12 11:15] VITALS: BMI 18.3
[2017-12-12] MEDS ORDERED: SODIUM CHLORIDE 0.9% 500 ML INFUS.BAG IV ONE (11:18)
--- NOTE | 2017-12-12 11:23 | PDOC ---
History of Present Illness - General Chief Complaint: Shortness of Breath Stated Complaint: SOB Time Seen by Provider: 12/12/17 11:02 History Source: Patient Exam Limitations: No Limitations - History of Present Illness Initial Comments: Ct is a very pleasant relatively healthy 87 yo F w/ a pmh of A-fib on Coumadin , acid reflux, and diverticulitis who presents to the ER with shortness of breath and difficulty breathing since last night. She endorses a new onset productive cough which is white in appearance. She also reports subjective feelings of warmth and occasional chills. She did not measure her fever. On admission to the ER she is afebrile but she admits to taking 2 extra strength tylenol tablets this morning before she came into the ER. She also admits to frequent urination which she states is bc she's been drinking alot. She denies dysuria, urgency, or hesitancy. She also states she has had decreased PO intake and general weakness and malaise. She denies recent fevers, chills, or infections. Denies chest pain or back pain. Denies cardiac, liver, or kidney disease. Denies any nausea or vomiting. Denies constipation or diarrhea. PCP: Tisha Urban Social Hx: Smokes 3/4 a PPD. Denies alcohol, or illicit drug usage. Allergies: NKA, NKDA Past History - Past Medical History Allergies/Adverse Reactions: Allergies Allergy/AdvReac Type Severity Reaction Status Date / Time No Known Drug Allergies Allergy Verified 10/13/17 14:08 Home Medications: Ambulatory Orders Warfarin Sodium [Coumadin] 6 mg PO DAILY 04/17/17 Calcium Carbonate/Vitamin D3 [Calcium 600-Vit D3 800 Caplet] 1 each PO DAILY 10/23 Docusate Sodium [Dulcolax Stool Softener] 100 mg PO HS 10/13/17 Ferrous Fumarate/Ascorbic Acid [Nasima-Sequels 65-25 mg Caplet] 1 each PO DAILY 10/13/17 Sennosides [Senokot] 8.6 mg PO HS 10/13/17 Vit C/Vit E AC/Lut/Copper/Zinc [Preservision Lutein Softgel] 1 each PO DAILY 10/23 Anemia: No Asthma: No Cancer: No Cardiac Disorders: Yes (ATRIAL FIB MANY YEARS AGO;HAD ABLATION 05/23) CVA: No COPD: No CHF: No Dementia: No Diabetes: No GI Disorders: No Disorders: No HTN: No Hypercholesterolemia: No Liver Disease: No Seizures: No Thyroid Disease: No - Surgical History Abdominal Surgery: Yes Appendectomy: Yes () Cardiac Surgery: No Cholecystectomy: No Lung Surgery: No Neurologic Surgery: No Orthopedic Surgery: No - Suicide/Smoking/Psychosocial Hx Smoking Status: Yes Smoking History: Never smoked Have you smoked in the past 12 months: Yes Number of Cigarettes Smoked Daily: 6 Information on smoking cessation initiated: No 'Breaking Loose' booklet given: 02/04/16 Hx Alcohol Use: No Drug/Substance Use Hx: No Substance Use Type: Alcohol Hx Substance Use Treatment: No Review of Systems - Review of Systems Constitutional: Yes: See HPI, Loss of Appetite, Malaise, Night Sweats, Weakness. No: Chills, Diaphoresis, Fever HEENTM: No: Blurred Vision, Nose Congestion, Throat Pain, Dental Problems Respiratory: Yes: Cough, Shortness of Breath, Productive cough. No: Orthopnea Cardiac (ROS): Yes: Irregular Heart Rate. No: Chest Pain, Edema, Lightheadedness, Syncope ABD/GI: Yes: Poor Appetite. No: Abdominal Distended, Constipated, Diarrhea, Nausea, Poor Fluid Intake, Vomiting : Yes: Frequency. No: Burning, Dysuria, Discharge, Hematuria, Urgency Musculoskeletal: No: Back Pain, Joint Pain, Muscle Pain Integumentary: No: Bruising, Change in Color, Dryness, Erythema, Rash Neurological: No: Headache, Numbness, Paresthesia, Weakness Psychiatric: No: Anxiety, Depression Endocrine: No: Excessive Sweating, Flushing, Intolerance to Cold, Intolerance to Heat Hematologic/Lymphatic: No: Anemia, Blood Clots, Easy Bleeding *Physical Exam - Vital Signs Last Vital Signs Temp Pulse Resp BP Pulse Ox 98.1 F 80 17 90/60 99 12/12/17 11:17 12/12/17 11:17 12/12/17 11:17 12/12/17 11:17 12/12/17 11:17 - Physical Exam General Appearance: Yes: Nourished, Appropriately Dressed. No: Apparent Distress HEENT: positive: EOMI, EDA, Normal ENT Inspection, Normal Voice, Pharynx Normal. negative: Pharyngeal Erythema, Tonsillar Exudate, Nasal Congestion, Rhinorrhea, Sinus Tenderness Neck: positive: Trachea midline, Supple. negative: Decreased range of motion, Lymphadenopathy (R), Lymphadenopathy (L) Respiratory/Chest: positive: Normal Breath Sounds, Decreased Breath Sounds ( Left middle lobe), Other (Possible decreased air entry in Left middle lobe). negative: Chest Tender, Respiratory Distress, Accessory Muscle Use, Labored Respiration, Rapid RR, Paradoxal Breathing, Crackles, Rales, Rhonchi, Wheezing, Hyperresonant, Dullness Cardiovascular: positive: Regular Rhythm, Regular Rate, S1, S2. negative: Edema , JVD, Murmur Vascular Pulses: Dorsalis-Pedis (R): 2+, Doralis-Pedis (L): 2+ Gastrointestinal/Abdominal: positive: Normal Bowel Sounds, Soft. negative: Distended, Guarding, Rebound Lymphatic: negative: Adenopathy Musculoskeletal: positive: Normal Inspection. negative: CVA Tenderness, Decreased Range of Motion, Vertebral Tenderness Extremity: positive: Normal Capillary Refill, Normal Inspection, Normal Range of Motion Integumentary: positive: Normal Color, Dry, Warm. 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 Mild mitral regurgitant flow noted. Heart Score/ECG Review - History History: Slightly suspicious - Electrocardiogram EKG: Normal - Age Age: >/= 65 - Risk Factors Risk Factors Heart Score: Yes Positive family hx of cardiac disease Based on the list above the patient has:: 1-2 risk factors - ECG Intrepretation Rhythm: Regular Rhythm - [place]: Normal - ST and T Non Specific ST-T Wave changes: Yes Comment:: There are new T wave inversions in the patient's EKG in comparison to an EKG from Apr 2017 T wave inversions in: 2,3,AVF, V2-V5 - ECG Impressions Normal ECG: No Ischemic Changes: Yes (T wave inversions) ED Treatment Course - LABORATORY CBC & Chemistry Diagram: 12/12/17 11:18 12/12/17 11:18 - RADIOLOGY Radiology Studies Ordered: Category Date Time Status CHEST PA & LAT [RAD] Stat Radiology 12/12/17 11:18 Ordered Medical Decision Making - Medical Decision Making Ct is a very pleasant relatively healthy 87 yo F w/ a pmh of A-fib on Coumadin , acid reflux, and diverticulitis who presents to the ER with shortness of breath and difficulty breathing since last night, subjective feelings of warmth and night sweats. Afebrile here but took tylenol prior to presentation. VS notable for low BP of 94/59 at bedside. PE notable for possible decreased air entry on Left. DD includes but not limited to: PNA, pneumothorax, URI, ACS, Afib. Plan: Cbc, Cmp, Trop, Coags, vbg, ua/uc, CXR, EKG, IVF - NS, re-assess. EKG is concerning for new ischemic changes. There are multiple new T wave inversions since an EKG done in Apr 2017. 1st Trop is elevated at 0.09 Will get 2nd trop as well. Will Perform bedside echo. will Consult Cards Patient will be admitted to [facility] for NSTEMI *DC/Admit/Observation/Transfer Diagnosis at time of Disposition: Dyspnea, EKG abnormalities, NSTEMI (non-ST elevated myocardial infarction) - Discharge Dispostion Condition at time of disposition: Guarded Decision to Admit order: Yes - Referrals Referrals: Tisha Urban MD [Primary Care Provider] - - Patient Instructions - Post Discharge Activity
[2017-12-12 11:39] LABS: BASO % 1.4 % (0-2.0); EOS % 1.2 % (0-4.5); HEMATOCRIT 41.2 % (32.4-45.2); HEMOGLOBIN 13.7 GM/dL (10.7-15.3); LYMPH % 28.3 % (8-40); MCH 30.3 pg (25.7-33.7); MCHC 33.3 g/dl (32.0-36.0); MEAN CELL VOLUME 90.8 fl (80-96); MEAN PLT VOLUME 8.8 fl (7.5-11.1); MONO % 12.4 % (3.8-10.2); NEUT % 56.7 % (42.8-82.8); PLATELET COUNT 284 K/MM3 (134-434); RBC 4.54 M/mm3 (3.60-5.2); RDW 13.8 % (11.6-15.6); VENOUS PC02 37.9 mmHg (38-52); VENOUS PH 7.4 (7.32-7.42); VENOUS PO2 28.7 mmHg (28-48); WHITE BLOOD COUNT 6.6 K/mm3 (4.0-10.0)
[2017-12-12 12:06] LABS: ALBUMIN 3.4 g/dl (3.4-5.0); ALK PHOS 77 U/L (45-117); ANION GAP 7 MMOL/L (8-16); BILIRUBIN,TOTAL 0.7 mg/dL (0.2-1); BLOOD UREA NITROGEN 19 mg/dL (7-18); CALCIUM 9.1 mg/dL (8.5-10.1); CHLORIDE 108 mmol/L (98-107); CO2 23 mmol/L (21-32); CREATININE 0.8 mg/dL (0.55-1.3); GLUCOSE,RANDOM 95 mg/dL (74-106); POTASSIUM 4.5 mmol/L (3.5-5.1); SGOT/AST 18 U/L (15-37); SGPT/ALT 12 U/L (13-61); SODIUM 138 mmol/L (136-145); TOT PROT 6.9 g/dl (6.4-8.2)
[2017-12-12] MEDS ORDERED: ASPIRIN 325 MG TABLET PO ONE (12:23)
[2017-12-12 12:24] LABS: INR 1.23 (0.83-1.09); PROTHROMBIN TIME (PATIENT) 14.6 SEC (9.7-13.0)
[2017-12-12] MEDS ORDERED: ASPIRIN 81 MG CHEWABLE TABLETS PO ONE (12:41)
[2017-12-12] MEDS ORDERED: ASPIRIN 325 MG TABLET ONE (13:03)
[2017-12-12] MEDS ORDERED: ASPIRIN 81 MG CHEWABLE TABLETS ONE (13:09)
--- NOTE | 2017-12-12 13:30 | PDOC ---
Attending Attestation - Resident Resident Name: Elder Daniel - ED Attending Attestation I have performed the following: I have examined & evaluated the patient, The case was reviewed & discussed with the resident, I agree w/resident's findings & plan - HPI HPI: 12/12/17 13:29 Mrs. Odom is a 87 YOF with PMHx of A-fib on Coumadin, s/p ablation, acid reflux, and diverticulitis, ?COPD current smoker who presents to the ER with nonexertional shortness of breath, cough and subjective chills since last night. She reports that her cough is productive of a white sputum. She notes that she took 2 extra strength Tylenol before coming to the hospital this morning. She notes that she has been drinking more liquids lately causing her to urinate more frequently. Last ablation for Afib in 05/2017; otherwise no h/o CAD, CVA. The patient denies chest pain, headache and dizziness. Denies fever, nausea, vomiting, diarrhea or constipation. Denies dysuria, urgency and hematuria. Allergies: None Past surgical history: Appendectomy Social History: No alcohol, tobacco or drug use reported PMD: Dr. Urban Cardiology: Dr. Levi - Physicial Exam PE: 12/12/17 13:29 NAD, well appearing, MMM, nl conjunctiva, anicteric; no JVD, neck supple. lungs clear, RRR, +soft holosystolic murmur, abdomen soft nontender. PARHAM x4, no focal neuro deficits. No peripheral edema. pallor noted, but WWP. no calf tenderness. - Medical Decision Making 12/12/17 13:29 I, Jenny Conrad MD, attest that this document has been prepared under my direction and personally reviewed by me in its entirety. I further attest, that it accurately reflects all work, treatment, procedures and medical decision -making performed by me. Mrs. Odom is a 87 YOF with PMHx of A-fib on Coumadin, s/p ablation, acid reflux, and diverticulitis, ?COPD current smoker who presents to the ER with nonexertional shortness of breath, cough DDx SOB: ACS, PE, CHF, pulmonary edema, pleurisy, pneumonia, viral syndrome. effusion. anemia, electrolyte/metabolic derangements. Vital signs reviewed, wnl. normal sats and respirations Prior notes reviewed, including admissions, discharges and consultations. laboratory results and imaging reviewed, prior echo reviewed from 04/2017 with normal EF and Moderate MR with regurgitant flow, mitral thickening, no FWMA, pulmonary hypertension. basic labs and lytes wnl, notable for elevated trop to 0.09, treating as NSTEMI with EKG findings and changes. coags subtherapeutic EKG normal sinus rhythm, no interval abnormalities, narrow QRS, ST segments and morphology normal. T wave abnormalities noted, with more pronounced TWI in V1-V3 , inferior leads II, III, AVF; flattening in lateral leads, changed from prior in 04/2017. CXR_ - ASA 81mg x1. 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 no pericardial effusion, fat pad noted, < 1cm. RV<LV. bilateral lung sliding, A line profile and no pleural effusions. - asymptomatic currently, remains stable and well appearing - cards cs with Dr. Levi, spoke with Dr. Ch, agree with plan will consult - admit to Dr. Urban, discussed case, agree with plan, tele admit Dispo: Admit for NSTEMI, atypical ACS presentation, tele/serial trops and EKG. Discussed results and management plan with pt and family member at bedside, agree with impression and plan 12/12/17 13:50 Procedures - Bedside Ultrasound Bedside Ultrasound: Cardiac Remarks: 12/12/17 13:37 POCUS echo and thoracic exam performed, indication includes chest pain/dyspnea. views obtained (PSLA, PSS, A4, SX, bilateral lung gray and thorax). Findings include normal EF, no pericardial or pleural effusion, primarily A lines, + hypokinesis of anterior, post-inferior melo. Normal aortic root <4cm. RV<LV. Impression: normal ejection fraction >50%, no pulmonary edema or effusion, hypokinetic melo of anterior/post inf melo.
[2017-12-12 13:53] LABS: URINE APPEARANCE CLEAR; URINE BILIRUBIN NEGATIVE (<2.0 mg/dL); URINE COLOR LTYELLOW; URINE GLUCOSE (UA) NEGATIVE (NEGATIVE); URINE KETONE NEGATIVE (NEGATIVE); URINE LEUK ESTERASE 1+ (NEGATIVE); URINE NITRITE NEGATIVE (NEGATIVE); URINE PROTEIN NEGATIVE (NEGATIVE); URINE UROBILINOGEN NEGATIVE mg/dL (0.2-1.0)
[2017-12-12 13:58] LABS: EPI CELLS RARE /HPF (FEW); URINE BACTERIA RARE /hpf (NONE SEEN); URINE HYALINE CAST 4 /lpf; URINE MUCUS RARE
[2017-12-12 14:12] LABS: N-TERMINAL BNP 2567.3 pg/ml (5-450)
[2017-12-12] MEDS ORDERED: ACETAMINOPHEN 325 MG TABLET (FP) PO PRN (14:45)
[2017-12-12] MEDS ORDERED: ONDANSETRON *ODT* 4 MG TABLET SL PRN (14:45)
[2017-12-12] MEDS ORDERED: WARFARIN NA 5 MG TABLET (UD) PO ONE (18:00)
[2017-12-12] MEDS ORDERED: WARFARIN NA 5 MG TABLET (UD) ONE (18:35)
[2017-12-12] MEDS ORDERED: ATORVASTATIN CA 10 MG TABLET (FP) ONE (22:25)
[2017-12-12] MEDS ORDERED: IBUPROFEN 600 MG TABLET (FP) PO ONE (23:32)
[2017-12-12] MEDS: ATORVASTATIN CA 10 MG TABLET (FP) PO SCH (23:37)
[2017-12-13 08:35] LABS: HEMATOCRIT 38.4 % (32.4-45.2); HEMOGLOBIN 12.6 GM/dL (10.7-15.3); MCHC 32.9 g/dl (32.0-36.0); MEAN CELL VOLUME 91.3 fl (80-96); MEAN PLT VOLUME 8.7 fl (7.5-11.1); PLATELET COUNT 228 K/MM3 (134-434); RDW 13.6 % (11.6-15.6); WHITE BLOOD COUNT 5.1 K/mm3 (4.0-10.0)
[2017-12-13 09:08] LABS: ALBUMIN 3.2 g/dl (3.4-5.0); ALK PHOS 75 U/L (45-117); ANION GAP 6 MMOL/L (8-16); BILIRUBIN,TOTAL 0.8 mg/dL (0.2-1); BLOOD UREA NITROGEN 12 mg/dL (7-18); CALCIUM 9.1 mg/dL (8.5-10.1); CHLORIDE 112 mmol/L (98-107); CHOLESTEROL 176 mg/dL (50-200); CO2 24 mmol/L (21-32); CREATININE 0.6 mg/dL (0.55-1.3); GLUCOSE,RANDOM 104 mg/dL (74-106); HDL CHOLESTEROL 48 mg/dL (40-60); SGOT/AST 19 U/L (15-37); SGPT/ALT 12 U/L (13-61); SODIUM 142 mmol/L (136-145); TOT PROT 6.7 g/dl (6.4-8.2); TRIGLYCERIDES 110 mg/dL (0-150)
--- NOTE | 2017-12-13 09:26 | CON.CARD ---
Consult Consult Specialty:: cardio - History of Present Illness Chief Complaint: cough and sob History of Present Illness: 87 F presented with cough, sob, subjective warmth and chills. she denies chest pain. denies sinus congestion, sore throat. pt states she does not feel sob unless finishing a coughing fit. phlegm comes up with cough--clear color. in ER, trop 0.09 and felt to have new ECG changes from prior. bedside echo done by ER felt to show anterior and inf-posterior hypokinesis. treated for NSTEMI cough is improved today, without any tx PMH: afib mitral regurg + cigs GERD - Past Medical History Cardio/Vascular: Yes: AFIB, HTN, Hyperlipdemia Gastrointestinal: Yes: GERD - Alcohol/Substance Use Hx Alcohol Use: Yes (JIN 1 GLASS Q NIGHT) - Smoking History Smoking history: Current every day smoker Have you smoked in the past 12 months: Yes Aproximately how many cigarettes per day: 10 Home Medications - Allergies Allergies/Adverse Reactions: Allergies Allergy/AdvReac Type Severity Reaction Status Date / Time No Known Drug Allergies Allergy Verified 10/13/17 14:08 - Home Medications Home Medications: Ambulatory Orders Warfarin Sodium [Coumadin] 6 mg PO DAILY 04/17/17 Calcium Carbonate/Vitamin D3 [Calcium 600-Vit D3 800 Caplet] 1 each PO DAILY 10/23 Docusate Sodium [Dulcolax Stool Softener] 100 mg PO HS 10/13/17 Ferrous Fumarate/Ascorbic Acid [Nasima-Sequels 65-25 mg Caplet] 1 each PO DAILY 10/13/17 Sennosides [Senokot] 8.6 mg PO HS 10/13/17 Vit C/Vit E AC/Lut/Copper/Zinc [Preservision Lutein Softgel] 1 each PO DAILY 10/23 Review of Systems - Review of Systems Constitutional: denies: Chills, Fever Eyes: denies: Eye Pain HENT: denies: Nasal Congestion Neck: denies: Stiffness Cardiovascular: denies: Palpitations Respiratory: denies: Orthopnea, PND Gastrointestinal: denies: Diarrhea, Rectal Bleeding Genitourinary: denies: Burning, Hematuria Musculoskeletal: denies: Muscle Pain Integumentary: denies: Rash Neurological: denies: Numbness, Seizure, Syncope Endocrine: denies: Excessive Sweating Hematology/Lymphatic: denies: Excessive Bleeding Vital Signs: Vital Signs Temperature 98.5 F 12/13/17 08:42 Pulse Rate 90 12/13/17 08:42 Respiratory Rate 20 12/13/17 08:42 Blood Pressure 112/66 12/13/17 08:42 O2 Sat by Pulse Oximetry (%) 98 12/13/17 08:39 Constitutional: Yes: Well Nourished, No Distress Eyes: No: Sclera Icterus HENT: No: Nasal Congestion Neck: No: Decreased ROM Respiratory: Yes: CTA Bilaterally. No: Accessory Muscle Use, Rales, Wheezes Gastrointestinal: Yes: Normal Bowel Sounds. No: Distention, Hepatomegaly, Palpable Mass, Tenderness Cardiovascular: Yes: Regular Rate and Rhythm JVD: No Carotid Bruit: No PMI: Non-Displaced Heart Sounds: Yes: S1, S2. No: Gallop Murmur: Yes: Systolic Murmur (soft, flat syst murmur L apex). No: Diastolic Murmur Musculoskeletal: Yes: Other (No kyphosis) Extremities: No: Cool, Cyanosis Edema: No Peripheral Pulses: 2+ Left Carotid, 2+ Right Carotid, 2+ Left Doralis Pedis, 2+ Right Dorsalis Pedis Integumentary: No: Jaundice Neurological: Yes: Alert, Oriented (x3) Psychiatric: No: Agitated - Other Data Labs, Other Data: CBC, BMP 12/13/17 08:00 12/13/17 08:00 INR, PTT INR 1.23 (0.83-1.09) H 12/12/17 12:01 Troponin, BNP 12/12/17 12/12/17 11:18 19:00 Troponin I 0.09 H 0.09 H B-Natriuretic Peptide 2567.3 H Troponin, BNP 12/12/17 12/12/17 11:18 19:00 Troponin I 0.09 H 0.09 H B-Natriuretic Peptide 2567.3 H Assessment/Plan EKG: NSR. no pathological q waves. NS TWIs inferior and anterior leads-- compared to priors, the TWIs in anterior leads have been present on prior ECGs done in 04/2017 and in 01/2016. CXR: clear lungs/pleura. no vascular redistribution echo 04/2017: nl lv/rv. sev lae. mild alexandro. mod ecc mr. mild-mod tr. estimated rvsp 43 echo 07/2016: nl lv/rv. 1+ lae. 1+ mr. mild-mod tr. mod pr. nl rvsp. MIBI 07/2016: no isch ST changes. normal perfusion, nl EF tele: NSR 86 yo smoker with a history of A. fib on Coumadin/amiodarone, htn, mild mr, gerd , diverticulosis who presents with cough/dizziness and noted to have mild troponin elevation + trop - baseline troponin 0.08 (stable on serial las) in 04/25. - trop here 0.09 x 2--not c/w NSTEMI. and not in range diagnostic of myocardial injury in absence of suspicious clinical picture - ECG here not significantly changed vs priors (waxing and waning degree of TWIs in anterior leads on prior ECGs, often similar to the present tracing) - bedside echo findings noted per ER note--? accuracy. will f/u official echo today productive cough: - normal WBC and temp - bnp 2500 (from 800 in 2016) - CXR with no findings of congestion/vascular redistribution - exam not c/w volume - murmur soft, doubt severe MR--rpt echo pending - sob only related to coughing fits. cough improving on its own--suspect URI vs a.e. copd. defer tx of these to dr mayen - defer lasix paroxysmal atrial fibrillation - s/p ablation 05/2017. on no rate/rhythm meds now at home. - con't AC with coumadin mitral regurgitation: - eccentric MR, reported as moderate 04/25 here. preserved LF fxn. mild pulm HTN noted. + tobacco - tobacco cessation counseling
--- NOTE | 2017-12-13 10:45 | EKG ---
Test Reason : Blood Pressure : / mmHG Vent. Rate : 080 BPM Atrial Rate : 080 BPM P-R Int : 138 ms QRS Dur : 074 ms QT Int : 392 ms P-R-T Axes : 055 012 087 degrees QTc Int : 452 ms NORMAL SINUS RHYTHM T WAVE ABNORMALITY, CONSIDER ANTERIOR ISCHEMIA ABNORMAL ECG WHEN COMPARED WITH ECG OF 19-APR-2017 09:12, T WAVE VARIATION VENT. RATE HAS INCREASED Confirmed by SARAY RONDON, DAMON ([id number]) on 12/13/2017 10:44:46 AM Referred By: Confirmed By:DAMON SO MD
[2017-12-13 12:01] LABS: INR 1.29 (0.83-1.09); PROTHROMBIN TIME (PATIENT) 15.3 SEC (9.7-13.0)
--- NOTE | 2017-12-13 12:20 | HP ---
Admitting History and Physical - Primary Care Physician PCP: Tisha Urban - Admission Chief Complaint: SOB History of Present Illness: Mrs. Odom is a 87 YOF with PMHx of A-fib on Coumadin, s/p ablation, acid reflux, and diverticulitis, ?COPD current smoker who presents to the ER with nonexertional shortness of breath, cough and subjective chills since last night. She reports that her cough is productive of a white sputum. She notes that she took 2 extra strength Tylenol before coming to the hospital this morning. She notes that she has been drinking more liquids lately causing her to urinate more frequently. Last ablation for Afib in 05/2017; otherwise no h/o CAD, CVA. The patient denies chest pain, headache and dizziness. Denies fever, nausea, vomiting, diarrhea or constipation. Denies dysuria, urgency and hematuria. Seen by Cardiology, SOB likely non cardiac Repeat Echo pending History Source: Patient, Medical Record Limitations to Obtaining History: No Limitations - Past Medical History Cardiovascular: Yes: AFIB, HTN, Hyperlipdemia Gastrointestinal: Yes: GERD - Smoking History Smoking history: Current every day smoker Have you smoked in the past 12 months: Yes Aproximately how many cigarettes per day: 10 - Alcohol/Substance Use Hx Alcohol Use: Yes (JIN 1 GLASS Q NIGHT) Home Medications - Allergies Allergies/Adverse Reactions: Allergies Allergy/AdvReac Type Severity Reaction Status Date / Time No Known Drug Allergies Allergy Verified 10/13/17 14:08 - Home Medications Home Medications: Ambulatory Orders Warfarin Sodium [Coumadin] 6 mg PO DAILY 04/17/17 Calcium Carbonate/Vitamin D3 [Calcium 600-Vit D3 800 Caplet] 1 each PO DAILY 10/23 Docusate Sodium [Dulcolax Stool Softener] 100 mg PO HS 10/13/17 Ferrous Fumarate/Ascorbic Acid [Nasima-Sequels 65-25 mg Caplet] 1 each PO DAILY 10/13/17 Sennosides [Senokot] 8.6 mg PO HS 10/13/17 Vit C/Vit E AC/Lut/Copper/Zinc [Preservision Lutein Softgel] 1 each PO DAILY 10/23 Review of Systems - Review of Systems Constitutional: reports: No Symptoms Eyes: reports: No Symptoms HENT: reports: No Symptoms Neck: reports: No Symptoms Cardiovascular: reports: Shortness of Breath Respiratory: reports: Cough, SOB Gastrointestinal: reports: No Symptoms Genitourinary: reports: No Symptoms Breasts: reports: No Symptoms Reported Musculoskeletal: reports: No Symptoms Integumentary: reports: No Symptoms Neurological: reports: No Symptoms Endocrine: reports: No Symptoms Hematology/Lymphatic: reports: No Symptoms Psychiatric: reports: No Symptoms Physical Examination Vital Signs: Vital Signs Temperature 98.5 F 12/13/17 08:42 Pulse Rate 90 12/13/17 08:42 Respiratory Rate 20 12/13/17 08:42 Blood Pressure 112/66 12/13/17 08:42 O2 Sat by Pulse Oximetry (%) 98 12/13/17 08:39 Constitutional: Yes: No Distress, Calm, Cachectic Cardiovascular: Yes: Regular Rate and Rhythm Respiratory: Yes: Regular Gastrointestinal: Yes: Normal Bowel Sounds, Soft Musculoskeletal: Yes: WNL Extremities: Yes: WNL Edema: No Peripheral Pulses WNL: Yes Labs: CBC, BMP 12/13/17 08:00 12/13/17 08:00 Problem List - Problems (1) Dyspnea Assessment/Plan: -CXR unremearkable-no congestive changes -Elevated BNP- no fluid overload on Physical exam -Seen by Cardiology -Echo done, results pending -04/09 to cough r/t URI Code(s): R06.00 - DYSPNEA, UNSPECIFIED (2) Afib Assessment/Plan: Chronic -Controlled -D/C tele -On warfarin-subtherapeutic -daily INR check while inpatient Code(s): I48.91 - UNSPECIFIED ATRIAL FIBRILLATION (3) Elevated troponin Assessment/Plan: - baseline troponin 0.08 in 04/25. - trop here 0.09 x 2--no c/w NSTEMI - ECG here not significantly changed vs priors (waxing and waning degree of TWIs in anterior leads on prior ECGs, often similar to the present tracing) Code(s): R74.8 - ABNORMAL LEVELS OF OTHER SERUM ENZYMES Assessment/Plan See problem list D/C home if cleared by cardiology
--- NOTE | 2017-12-13 14:29 | ECHO ---
Name: NOEMY SEARS Exam:Adult Echocardiogram Study Date: 12/13/2017 11:58 AM Age: 87 yrs Reason For Study: SOB Height: 62 in Weight: 100 lb BSA: 1.4 m2 MMode/2D Measurements & Calculations IVSd: 1.0 cm Ao root diam: 2.5 cm LVIDd: 4.5 cm LA dimension: 4.4 cm LVIDs: 2.9 cm LVPWd: 0.96 cm EDV(Teich): 91.8 ml TAPSE: 1.7 cm ESV(Teich): 32.0 ml Doppler Measurements & Calculations MV E max ozzie: 71.6 cm/sec AI P1/2t: 351.1 msec MV A max ozzie: 60.2 cm/sec MV E/A: 1.2 MV dec time: 0.20 sec AI max ozzie: 388.9 cm/sec MR max ozzie: 483.7 cm/sec AI max P.5 mmHg MR max P.8 mmHg AI dec slope: 324.5 cm/sec2 TR max ozzie: 289.1 cm/sec PI end-d ozzie: 108.9 cm/sec TR max P.5 mmHg Med Peak E' Ozzie: 9.6 cm/sec Med E/e': 7.4 Lat Peak E' Ozzie: 4.2 cm/sec Lat E/e': 17.0 Procedure A complete two-dimensional transthoracic echocardiogram was performed (2D, M-mode, Doppler and color flow Doppler). Left Ventricle The left ventricle is normal in size. Left ventricular systolic function is normal. Ejection Fraction = 65- 70%. No regional wall motion abnormalities noted. Right Ventricle The right ventricle is normal size. The right ventricular systolic function is normal. Atria The left atrium is moderately dilated. Right atrial size is normal. Mitral Valve There is moderate mitral annular calcification. There is moderate mitral regurgitation. Tricuspid Valve The tricuspid valve is normal in structure and function. There is moderate to severe tricuspid regurg itation. Pulmonary artery systolic pressure is at least 46 mmHg assuming RA pressure of 8 mmHg. Aortic Valve There is mild aortic sclerosis.;. Mild aortic regurgitation. Pulmonic Valve The pulmonic valve is not well visualized. Mild to moderate pulmonic valvular regurgitation. Great Vessels The aortic root is normal size. Pericardium/Pleura There is no pericardial effusion. Interpretation Summary The left ventricle is normal in size. Left ventricular systolic function is normal. No regional wall motion abnormalities noted. Ejection Fraction = 65-70%. The right ventricular systolic function is normal. The left atrium is moderately dilated. Right atrial size is normal. There is moderate mitral annular calcification. There is moderate mitral regurgitation. There is moderate to severe tricuspid regurgitation. Pulmonary artery systolic pressure is at least 46 mmHg assuming RA pressure of 8 mmHg There is mild aortic sclerosis. Mild aortic regurgitation. Mild to moderate pulmonic valvular regurgitation. There is no pericardial effusion. Previous study is not available for comparison Kit Cassidy MD 12/13/2017 02:28 PM
[2017-12-13] MEDS: WARFARIN NA 5 MG TABLET (UD) PO SCH (17:14)
[2017-12-13] MEDS ORDERED: WARFARIN NA 2 MG TABLET (UD) PO SCH (18:00)
[2017-12-13] MEDS: ATORVASTATIN CA 10 MG TABLET (FP) PO SCH (21:17)
[2017-12-14 07:49] LABS: INR 1.29 (0.83-1.09); PROTHROMBIN TIME (PATIENT) 15.3 SEC (9.7-13.0)
--- NOTE | 2017-12-14 09:18 | PN ---
Progress Note, Physician Chief Complaint: EVENTS AND NOTES REVIEWED DIZZY/WEAK/POOR APPETITE - Current Medication List Current Medications: Active Medications Acetaminophen (Tylenol -) 650 mg PO Q6H PRN PRN Reason: PAIN OR FEVER Atorvastatin Calcium (Lipitor -) 10 mg PO HS [facility] Last Admin: 12/13/17 21:17 Dose: Not Given Ondansetron HCl (Zofran Odt -) 4 mg SL Q6H PRN PRN Reason: NAUSEA AND/OR VOMITING Warfarin Sodium (Coumadin -) 5 mg PO DAILY@1800 [facility] Last Admin: 12/13/17 17:14 Dose: 5 mg - Objective Vital Signs: Vital Signs Temperature 98.2 F 12/14/17 05:52 Pulse Rate 79 12/14/17 05:52 Respiratory Rate 18 12/14/17 05:52 Blood Pressure 94/55 L 12/14/17 05:52 O2 Sat by Pulse Oximetry (%) 95 12/13/17 21:00 Constitutional: Yes: Mild Distress Eyes: Yes: WNL HENT: Yes: WNL Neck: Yes: WNL Cardiovascular: Yes: Pulse Irregular Respiratory: Yes: WNL Gastrointestinal: Yes: WNL Genitourinary: Yes: WNL Musculoskeletal: Yes: Muscle Weakness Extremities: Yes: WNL Edema: No Peripheral Pulses WNL: Yes Integumentary: Yes: WNL Wound/Incision: Yes: Clean/Dry Neurological: Yes: Other ...Motor Strength: LLE, RLE Psychiatric: Yes: WNL Labs: CBC, BMP 12/13/17 08:00 12/13/17 08:00 INR, PTT INR 1.29 (0.83-1.09) H 12/14/17 05:30 Problem List - Problems (1) Poor appetite Code(s): R63.0 - ANOREXIA (2) Abnormal INR Code(s): R79.1 - ABNORMAL COAGULATION PROFILE (3) Dyspnea Code(s): R06.00 - DYSPNEA, UNSPECIFIED (4) EKG abnormalities Code(s): R94.31 - ABNORMAL ELECTROCARDIOGRAM [ECG] [EKG] (5) Afib Code(s): I48.91 - UNSPECIFIED ATRIAL FIBRILLATION (6) Dizziness Code(s): R42 - DIZZINESS AND GIDDINESS (7) Weakness Code(s): R53.1 - WEAKNESS Assessment/Plan START LOVENOX AND BRIDGE BACK ON COUMADIN IV BANANA BAG FOR NUTRITION AND VITAMINS S/P HIP FX REPAIR PT EVAL OOB TO CHAIR WITH ASSIST CONTINUE TELEMETRY MONITORING
--- NOTE | 2017-12-14 09:40 | PN ---
Progress Note (short form) - Note Progress Note: s: cough improving, less frequent. denies dyspnea, chest pain, orthopnea, PND Current Medications Acetaminophen (Tylenol -) 650 mg PO Q6H PRN PRN Reason: PAIN OR FEVER Atorvastatin Calcium (Lipitor -) 10 mg PO HS [facility] Last Admin: 12/13/17 21:17 Dose: Not Given Ondansetron HCl (Zofran Odt -) 4 mg SL Q6H PRN PRN Reason: NAUSEA AND/OR VOMITING Warfarin Sodium (Coumadin -) 5 mg PO DAILY@1800 [facility] Last Admin: 12/13/17 17:14 Dose: 5 mg Vital Signs: Vital Signs Period Temp Pulse Resp BP Sys/Lucero Pulse Ox Last 24 Hr 97.4 F-98.6 F 74-87 18-20 94-118/42-60 95 Constitutional: Yes: Well Nourished, No Distress Eyes: No: Sclera Icterus HENT: No: Nasal Congestion Neck: No: Decreased ROM Respiratory: Yes: CTA Bilaterally. No: Accessory Muscle Use, Rales, Wheezes Gastrointestinal: Yes: Normal Bowel Sounds. No: Distention, Hepatomegaly, Palpable Mass, Tenderness Cardiovascular: Yes: Regular Rate and Rhythm JVD: No Carotid Bruit: No PMI: Non-Displaced Heart Sounds: Yes: S1, S2. No: Gallop Murmur: Yes: Systolic Murmur (soft, flat syst murmur L apex). No: Diastolic Murmur Musculoskeletal: Yes: Other (No kyphosis) Extremities: No: Cool, Cyanosis Edema: No Peripheral Pulses: 2+ Left Carotid, 2+ Right Carotid, 2+ Left Doralis Pedis, 2+ Right Dorsalis Pedis Integumentary: No: Jaundice Neurological: Yes: Alert, Oriented (x3) Psychiatric: No: Agitated Assessment/Plan EKG: NSR. no pathological q waves. NS TWIs inferior and anterior leads-- compared to priors, the TWIs in anterior leads have been present on prior ECGs done in 04/2017 and in 01/2016. CXR: clear lungs/pleura. no vascular redistribution echo 04/2017: nl lv/rv. sev lae. mild alexandro. mod ecc mr. mild-mod tr. estimated rvsp 43 echo 07/2016: nl lv/rv. 1+ lae. 1+ mr. mild-mod tr. mod pr. nl rvsp. echo 12/2017 nl lv/rv, LA mod dilated, mod MR, mod to sev TR, PASP >46 mmHg, mild AR MIBI 07/2016: no isch ST changes. normal perfusion, nl EF tele: NSR 86 yo smoker with a history of A. fib on Coumadin/amiodarone, htn, mild mr, gerd , diverticulosis who presents with cough/dizziness and noted to have mild troponin elevation + trop - baseline troponin 0.08 (stable on serial las) in 04/25. - trop here 0.09 x 2--not c/w NSTEMI. and not in range diagnostic of myocardial injury in absence of suspicious clinical picture - ECG here not significantly changed vs priors (waxing and waning degree of TWIs in anterior leads on prior ECGs, often similar to the present tracing) - echo nl LV/RV function with mod MR, mod to severe TR. similar to prior from productive cough: - normal WBC and temp - bnp 2500 (from 800 in 2016) - CXR with no findings of congestion/vascular redistribution - exam not c/w volume overload - sob only related to coughing fits. cough improving on its own--suspect URI vs a.e. copd. defer tx of these to dr mayen - defer lasix paroxysmal atrial fibrillation - s/p ablation 05/2017. on no rate/rhythm meds now at home. - con't AC with coumadin mitral regurgitation: - eccentric MR, reported as moderate on current echo, preserved LF fxn. mild pulm HTN noted, stable on echo 12/2017 + tobacco - tobacco cessation counseling
[2017-12-14] MEDS ORDERED: FOLIC ACID INJECTION - 1 MG, THIAMINE HCL 100 MG, MULTIVIT INJECTION ADULT 10 ML in SOD... IVPB ONE (10:45)
[2017-12-14] MEDS ORDERED: IRON SUCROSE INJECTION 200 MG in SODIUM CHLORIDE 90 ML IVPB ONE (10:45)
[2017-12-14] MEDS: AMINO ACIDS/PROTEIN HYDROLYS 30 ML LIQUID.PKT PO SCH (17:48)
[2017-12-14] MEDS: WARFARIN NA 5 MG TABLET (UD) PO SCH (17:48)
[2017-12-14] MEDS: ENOXAPARIN NA (PORCINE) 60 MG/0.6 ML DISP.SYRIN SQ SCH (21:01)
[2017-12-14] MEDS: ATORVASTATIN CA 10 MG TABLET (FP) PO SCH (21:01)
[2017-12-15 07:04] LABS: INR 1.13 (0.83-1.09); PROTHROMBIN TIME (PATIENT) 13.4 SEC (9.7-13.0)
[2017-12-15] MEDS ORDERED: SODIUM CHLORIDE NASAL SPRAY 44 ML BOTTLE NS PRN (09:29)
[2017-12-15] MEDS ORDERED: WARFARIN NA 3 MG TABLET PO SCH (09:30)
--- NOTE | 2017-12-15 09:31 | PN ---
Progress Note, Physician Chief Complaint: awake alert dry cough no fevers no cp - Current Medication List Current Medications: Active Medications Acetaminophen (Tylenol -) 650 mg PO Q6H PRN PRN Reason: PAIN OR FEVER Amino Acids (Prosource No Carb Liquid Pkt) 30 ml PO BID@0800,1730 [facility] Last Admin: 12/14/17 17:48 Dose: 30 ml Atorvastatin Calcium (Lipitor -) 10 mg PO HS [facility] Last Admin: 12/14/17 21:01 Dose: 10 mg Enoxaparin Sodium (Lovenox -) 50 mg SQ BID [facility] Last Admin: 12/14/17 21:01 Dose: 50 mg Fluticasone Propionate (Flonase -) 1 spray NS BID [facility] Loratadine (Claritin -) 10 mg PO DAILY [facility] Ondansetron HCl (Zofran Odt -) 4 mg SL Q6H PRN PRN Reason: NAUSEA AND/OR VOMITING Sodium Chloride ([place] Nasal [place] -) 2 spray NS BID PRN PRN Reason: NASAL CONGESTION Warfarin Sodium (Coumadin -) 6 mg PO DAILY@1800 [facility] - Objective Vital Signs: Vital Signs Temperature 98.0 F 12/14/17 21:20 Pulse Rate 72 12/14/17 21:20 Respiratory Rate 18 12/14/17 21:20 Blood Pressure 124/53 L 12/14/17 21:20 O2 Sat by Pulse Oximetry (%) 94 L 12/14/17 20:20 Constitutional: Yes: Mild Distress Eyes: Yes: WNL HENT: Yes: WNL, Other Cardiovascular: Yes: Pulse Irregular Respiratory: Yes: WNL Gastrointestinal: Yes: WNL Genitourinary: Yes: WNL Musculoskeletal: Yes: WNL Extremities: Yes: WNL Edema: No Peripheral Pulses WNL: Yes Integumentary: Yes: WNL Wound/Incision: Yes: Clean/Dry Neurological: Yes: WNL ...Motor Strength: WNL Psychiatric: Yes: WNL Labs: CBC, BMP 12/13/17 08:00 12/13/17 08:00 INR, PTT INR 1.13 (0.83-1.09) H 12/15/17 05:30 Problem List - Problems (1) Poor appetite Code(s): R63.0 - ANOREXIA (2) Abnormal INR Code(s): R79.1 - ABNORMAL COAGULATION PROFILE (3) Dyspnea Code(s): R06.00 - DYSPNEA, UNSPECIFIED (4) EKG abnormalities Code(s): R94.31 - ABNORMAL ELECTROCARDIOGRAM [ECG] [EKG] (5) Afib Code(s): I48.91 - UNSPECIFIED ATRIAL FIBRILLATION (6) Dizziness Code(s): R42 - DIZZINESS AND GIDDINESS (7) Weakness Code(s): R53.1 - WEAKNESS Assessment/Plan INR SUBTHERAPEUTIC LOVENOX AND BRIDGE COUMADIN INCREASE TO 6MG HS FLONASE/CLARITON FOR COUGH LIKELY ALLERGHIC RHINITIS OOB TO CHAIR NEURO F/U DIZZINESS PT EVAL
[2017-12-15] MEDS: ENOXAPARIN NA (PORCINE) 60 MG/0.6 ML DISP.SYRIN SQ SCH ×2 (09:45→21:13)
[2017-12-15] MEDS: AMINO ACIDS/PROTEIN HYDROLYS 30 ML LIQUID.PKT PO SCH ×2 (09:46→17:14)
--- NOTE | 2017-12-15 11:30 | PN ---
Progress Note (short form) - Note Progress Note: s: still has cough, not changed from yesterday. denies dyspnea, chest pain, orthopnea, PND Current Medications Acetaminophen (Tylenol -) 650 mg PO Q6H PRN PRN Reason: PAIN OR FEVER Amino Acids (Prosource No Carb Liquid Pkt) 30 ml PO BID@0800,1730 [facility] Last Admin: 12/15/17 09:46 Dose: 30 ml Atorvastatin Calcium (Lipitor -) 10 mg PO HS [facility] Last Admin: 12/14/17 21:01 Dose: 10 mg Enoxaparin Sodium (Lovenox -) 50 mg SQ BID [facility] Last Admin: 12/15/17 09:45 Dose: 50 mg Fluticasone Propionate (Flonase -) 1 spray NS BID [facility] Loratadine (Claritin -) 10 mg PO DAILY [facility] Ondansetron HCl (Zofran Odt -) 4 mg SL Q6H PRN PRN Reason: NAUSEA AND/OR VOMITING Sodium Chloride ([place] Nasal [place] -) 2 spray NS BID PRN PRN Reason: NASAL CONGESTION Warfarin Sodium (Coumadin -) 6 mg PO DAILY@1800 [facility] Vital Signs: Vital Signs Period Temp Pulse Resp BP Sys/Lucero Pulse Ox Last 24 Hr 97.5 F-98.1 F 72-81 18-20 108-128/50-71 94 Constitutional: Yes: Well Nourished, No Distress Eyes: No: Sclera Icterus HENT: No: Nasal Congestion Neck: No: Decreased ROM Respiratory: Yes: CTA Bilaterally. No: Accessory Muscle Use, Rales, Wheezes Gastrointestinal: Yes: Normal Bowel Sounds. No: Distention, Hepatomegaly, Palpable Mass, Tenderness Cardiovascular: Yes: Regular Rate and Rhythm JVD: No Carotid Bruit: No PMI: Non-Displaced Heart Sounds: Yes: S1, S2. No: Gallop Murmur: Yes: Systolic Murmur (soft, flat syst murmur L apex). No: Diastolic Murmur Musculoskeletal: Yes: Other (No kyphosis) Extremities: No: Cool, Cyanosis Edema: No Peripheral Pulses: 2+ Left Carotid, 2+ Right Carotid, 2+ Left Doralis Pedis, 2+ Right Dorsalis Pedis Integumentary: No: Jaundice Neurological: Yes: Alert, Oriented (x3) Psychiatric: No: Agitated Assessment/Plan EKG: NSR. no pathological q waves. NS TWIs inferior and anterior leads-- compared to priors, the TWIs in anterior leads have been present on prior ECGs done in 04/2017 and in 01/2016. CXR: clear lungs/pleura. no vascular redistribution echo 04/2017: nl lv/rv. sev lae. mild alexandro. mod ecc mr. mild-mod tr. estimated rvsp 43 echo 07/2016: nl lv/rv. 1+ lae. 1+ mr. mild-mod tr. mod pr. nl rvsp. echo 12/2017 nl lv/rv, LA mod dilated, mod MR, mod to sev TR, PASP >46 mmHg, mild AR MIBI 07/2016: no isch ST changes. normal perfusion, nl EF tele: NSR 86 yo smoker with a history of A. fib on Coumadin/amiodarone, htn, mild mr, gerd , diverticulosis who presents with cough/dizziness and noted to have mild troponin elevation + trop - baseline troponin 0.08 (stable on serial las) in 04/25. - trop here 0.09 x 2--not c/w NSTEMI. and not in range diagnostic of myocardial injury in absence of suspicious clinical picture - ECG here not significantly changed vs priors (waxing and waning degree of TWIs in anterior leads on prior ECGs, often similar to the present tracing) - echo nl LV/RV function with mod MR, mod to severe TR. similar to prior from productive cough: - normal WBC and temp - bnp 2500 (from 800 in 2016) - CXR with no findings of congestion/vascular redistribution - sob only related to coughing fits. cough improving on its own--suspect URI vs a.e. copd. defer tx of these to dr mayen - defer lasix, remains euvolemic paroxysmal atrial fibrillation - s/p ablation 05/2017. on no rate/rhythm meds now at home. - con't AC with coumadin mitral regurgitation: - eccentric MR, reported as moderate on current echo, preserved LF fxn. mild pulm HTN noted, stable on echo 12/2017 + tobacco - tobacco cessation counseling stable from cardiac perspective
[2017-12-15] MEDS: LORATADINE 10 MG TABLET PO SCH (12:46)
[2017-12-15] MEDS ORDERED: PT OWN MED DRAWER 7, Y5N ONE ×2 (13:55→20:48)
[2017-12-15] MEDS: FLUTICASONE PROP 0.05% 16 GM NASAL SPRAY NS SCH ×2 (13:57→21:12)
[2017-12-15] MEDS: ATORVASTATIN CA 10 MG TABLET (FP) PO SCH (21:13)
[2017-12-16 06:17] VITALS: BP 104/61; PULSE 76; TEMP 98.5
[2017-12-16 07:14] LABS: INR 1.07 (0.83-1.09); PROTHROMBIN TIME (PATIENT) 12.6 SEC (9.7-13.0)
[2017-12-16] MEDS ORDERED: PT OWN MED DRAWER 7, Y5N ONE ×2 (08:46→10:00)
[2017-12-16] MEDS: LORATADINE 10 MG TABLET PO SCH (09:34)
[2017-12-16] MEDS: AMINO ACIDS/PROTEIN HYDROLYS 30 ML LIQUID.PKT PO SCH (09:34)
[2017-12-16] MEDS: ENOXAPARIN NA (PORCINE) 60 MG/0.6 ML DISP.SYRIN SQ SCH (09:34)
[2017-12-16] MEDS: FLUTICASONE PROP 0.05% 16 GM NASAL SPRAY NS SCH (09:38)
--- NOTE | 2017-12-16 09:39 | CONSULT ---
Consult - text type - Consultation Consultation Note: Neurology History of Present Illness: 87 y/o F with PMHx of A-fib on Coumadin, s/p ablation, acid reflux, and diverticulitis, ?COPD current smoker who presents to the ER with nonexertional shortness of breath, cough and subjective chills since last night. She reported that her cough was productive of a white sputum. She noted that she took 2 extra strength Tylenol before coming to the hospital the morning of admission. She noted that she had been drinking more liquids causing her to urinate more frequently. Last ablation for Afib in 05/2017; otherwise no h/o CAD, CVA. The patient denied chest pain, headache and dizziness. Denies fever, nausea, vomiting, diarrhea or constipation. Denies dysuria, urgency and hematuria. I was consulted for ongoing weakness as well as symptoms of dizziness that she had been experiencing. During my evaluation this morning, she stated that her symptoms had essentially resolved. We discussed the importance of hydration and I advised avoiding quick head movements. I reviewed her echo which demonstrated normal left ventricular function with ejection fraction of 65-70% and normal right ventricular function as well. Neurologically, she appeared to be at baseline and in good spirits, likely for discharge today. - Past Medical History Cardiovascular: Yes: AFIB, HTN, Hyperlipdemia Gastrointestinal: Yes: GERD - Smoking History Smoking history: Current every day smoker Have you smoked in the past 12 months: Yes Aproximately how many cigarettes per day: 10 - Alcohol/Substance Use Hx Alcohol Use: Yes (JIN 1 GLASS Q NIGHT) Home Medications - Allergies Allergies/Adverse Reactions: Allergies Allergy/AdvReac Type Severity Reaction Status Date / Time No Known Drug Allergies Allergy Verified 10/13/17 14:08 - Home Medications Home Medications: Ambulatory Orders Warfarin Sodium [Coumadin] 6 mg PO DAILY 04/17/17 Calcium Carbonate/Vitamin D3 [Calcium 600-Vit D3 800 Caplet] 1 each PO DAILY 10/23 Docusate Sodium [Dulcolax Stool Softener] 100 mg PO HS 10/13/17 Ferrous Fumarate/Ascorbic Acid [Nasima-Sequels 65-25 mg Caplet] 1 each PO DAILY 10/13/17 Sennosides [Senokot] 8.6 mg PO HS 10/13/17 Vit C/Vit E AC/Lut/Copper/Zinc [Preservision Lutein Softgel] 1 each PO DAILY 10/23 Review of Systems - Review of Systems Constitutional: reports: No Symptoms Eyes: reports: No Symptoms HENT: reports: No Symptoms Neck: reports: No Symptoms Cardiovascular: reports: Shortness of Breath Respiratory: reports: Cough, SOB Gastrointestinal: reports: No Symptoms Genitourinary: reports: No Symptoms Breasts: reports: No Symptoms Reported Musculoskeletal: reports: No Symptoms Integumentary: reports: No Symptoms Neurological: reports: No Symptoms Endocrine: reports: No Symptoms Hematology/Lymphatic: reports: No Symptoms Psychiatric: reports: No Symptoms Physical Examination Vital Signs: Vital Signs Temperature 98.5 F 12/13/17 08:42 Pulse Rate 90 12/13/17 08:42 Respiratory Rate 20 12/13/17 08:42 Blood Pressure 112/66 12/13/17 08:42 O2 Sat by Pulse Oximetry (%) 98 12/13/17 08:39 Constitutional: Yes: No Distress, Calm, Cachectic Cardiovascular: Yes: Regular Rate and Rhythm Respiratory: Yes: Regular Gastrointestinal: Yes: Normal Bowel Sounds, Soft Musculoskeletal: Yes: WNL Extremities: Yes: WNL Edema: No Neuro Head atraumatic and normocephalic CN: PERRL, EOMI intact, no apparent facial droop, no abnormalities in facial sensation, palate elevates, uvula and tongue midline Motor: Strength intact to confrontation in upper and lower extremities. Tone normal throughout Sensory: Intact to Temperature, light touch, and pinprick in all extremities Reflexes: 2+ biceps, brachioradialis, patellar, achillies Coordination: Intact on [id number] testing Gait: Unremarkable, no ataxia CBCD WBC 5.1 K/mm3 (4.0-10.0) 12/13/17 08:00 RBC 4.20 M/mm3 (3.60-5.2) 12/13/17 08:00 Hgb 12.6 GM/dL (10.7-15.3) 12/13/17 08:00 Hct 38.4 % (32.4-45.2) 12/13/17 08:00 MCV 91.3 fl (80-96) 12/13/17 08:00 MCHC 32.9 g/dl (32.0-36.0) 12/13/17 08:00 RDW 13.6 % (11.6-15.6) 12/13/17 08:00 Plt Count 228 K/MM3 (134-434) 12/13/17 08:00 MPV 8.7 fl (7.5-11.1) 12/13/17 08:00 CMP Sodium 142 mmol/L (136-145) 12/13/17 08:00 Potassium 4.0 mmol/L (3.5-5.1) 12/13/17 08:00 Chloride 112 mmol/L (98-107) H 12/13/17 08:00 Carbon Dioxide 24 mmol/L (21-32) 12/13/17 08:00 Anion Gap 6 MMOL/L (8-16) L 12/13/17 08:00 BUN 12 mg/dL (7-18) 12/13/17 08:00 Creatinine 0.6 mg/dL (0.55-1.3) 12/13/17 08:00 Creat Clearance w eGFR > 60 (>60) 12/13/17 08:00 Random Glucose 104 mg/dL (74-106) 12/13/17 08:00 Calcium 9.1 mg/dL (8.5-10.1) 12/13/17 08:00 Total Bilirubin 0.8 mg/dL (0.2-1) 12/13/17 08:00 AST 19 U/L (15-37) 12/13/17 08:00 ALT 12 U/L (13-61) L 12/13/17 08:00 Alkaline Phosphatase 75 U/L (45-117) 12/13/17 08:00 Total Protein 6.7 g/dl (6.4-8.2) 12/13/17 08:00 Albumin 3.2 g/dl (3.4-5.0) L 12/13/17 08:00 CARDIAC ENZYMES Troponin I 0.09 ng/ml (0.00-0.05) H 12/12/17 19:00 Plan: 87 y/o F with PMHx of A-fib on Coumadin, s/p ablation, acid reflux, and diverticulitis, ?COPD current smoker who presents to the ER with nonexertional shortness of breath, cough and subjective chills since last night. She reported that her cough was productive of a white sputum. She noted that she took 2 extra strength Tylenol before coming to the hospital the morning of admission. She noted that she had been drinking more liquids causing her to urinate more frequently. Last ablation for Afib in 05/2017; otherwise no h/o CAD, CVA. The patient denied chest pain, headache and dizziness. Denies fever, nausea, vomiting, diarrhea or constipation. Denies dysuria, urgency and hematuria. I was consulted for ongoing weakness as well as symptoms of dizziness that she had been experiencing. During my evaluation this morning, she stated that her symptoms had essentially resolved. We discussed the importance of hydration and I advised avoiding quick head movements. I reviewed her echo which demonstrated normal left ventricular function with ejection fraction of 65-70% and normal right ventricular function as well. Neurologically, she appeared to be at baseline and in good spirits, likely for discharge today. Monitor Afib, AC per primary, cardiology follow up. Can see me for follow up as outpatient as needed.
--- NOTE | 2017-12-16 09:58 | DS ---
Physical Examination Vital Signs: Vital Signs Temperature 98.5 F 12/16/17 06:00 Pulse Rate 76 12/16/17 06:00 Respiratory Rate 20 12/16/17 06:00 Blood Pressure 104/61 12/16/17 06:00 O2 Sat by Pulse Oximetry (%) 97 12/15/17 21:00 Constitutional: Yes: No Distress Eyes: Yes: WNL HENT: Yes: WNL Neck: Yes: WNL Cardiovascular: Yes: WNL Respiratory: Yes: WNL Gastrointestinal: Yes: WNL Renal/: Yes: WNL Musculoskeletal: Yes: Muscle Weakness Extremities: Yes: WNL Edema: No Peripheral Pulses WNL: Yes Integumentary: Yes: WNL Wound/Incision: Yes: Clean/Dry Neurological: Yes: WNL ...Motor Strength: WNL Psychiatric: Yes: WNL Labs: CBC, BMP 12/13/17 08:00 12/13/17 08:00 Discharge Summary Reason For Visit: NSTEMI,DYSPNEA Current Active Problems Abnormal INR (Acute) Dyspnea (Acute) EKG abnormalities (Acute) NSTEMI (non-ST elevated myocardial infarction) (Acute) Poor appetite (Acute) Procedures: Principal: DIZZINESS/CHEST PAIN/WEAKNESS WORKUP ECHO/CT SCAN Hospital Course: ADMITTED WITH LIKELY SYNCOPE WITH DIZZINESS, SOB VIRAL SYNDROME Condition: Good - Instructions Diet, Activity, Other Instructions: USE LOVENOX 50MG BID FOR BRIDGE TO COUMADIN INR CHECK AT HOME IN 2 DAYS Referrals: Tisha Urban MD [Primary Care Provider] - Disposition: VNS/HOME HEALTH CARE - Home Medications Comprehensive Discharge Medication List: Ambulatory Orders Calcium Carbonate/Vitamin D3 [Calcium 600-Vit D3 800 Caplet] 1 each PO DAILY 10/23 Docusate Sodium [Dulcolax Stool Softener] 100 mg PO HS 10/13/17 Ferrous Fumarate/Ascorbic Acid [Nasima-Sequels 65-25 mg Caplet] 1 each PO DAILY 10/13/17 Sennosides [Senokot] 8.6 mg PO HS 10/13/17 Vit C/Vit E AC/Lut/Copper/Zinc [Preservision Lutein Softgel] 1 each PO DAILY 10/23 Acetaminophen [Tylenol .Regular Strength -] 650 mg PO Q6H PRN tablet 12/16/17 Amino Acids/Protein Hydrolys [Prosource No Carb Liquid Pkt] 30 ml PO BID@0800, 1730 packet 12/16/17 Atorvastatin Ca [Lipitor] 10 mg PO HS tablet 12/16/17 Enoxaparin [Lovenox -] 50 mg SQ BID disp.syrin 12/16/17 Fluticasone Prop 0.05% Nasal [Flonase -] 1 spray NS BID spray 12/16/17 Loratadine [Claritin -] 10 mg PO DAILY tablet 12/16/17 Ondansetron [Zofran Odt -] 4 mg SL Q6H PRN tab.rapdis 12/16/17 Sodium Chloride Nasal [place] [[place] Nasal [place] -] 2 spray NS BID PRN spray 12/16/17 Warfarin Na [Coumadin -] 5 mg PO DAILY@1800 tablet 12/16/17
--- NOTE | 2017-12-16 11:01 | PN ---
Progress Note (short form) - Note Progress Note: Progress Note: s: denies dyspnea, chest pain, orthopnea, PND Current Medications Generic Name Dose Route Start Last Admin Trade Name Freq PRN Reason Stop Dose Admin Acetaminophen 650 mg 12/12/17 14:45 12/15/17 17:18 Tylenol - PO 650 mg Q6H PRN Administration PAIN OR FEVER Amino Acids 30 ml 12/14/17 17:30 12/16/17 09:34 Prosource No Carb Liquid Pkt PO 30 ml BID@0800,1730 VANESA Administration Atorvastatin Calcium 10 mg 12/12/17 22:00 12/15/17 21:13 Lipitor - PO Not Given HS [facility]AN[facility]A Enoxaparin Sodium 50 mg 12/14/17 22:00 12/16/17 09:34 Lovenox - SQ 50 mg BID [facility] Administration Fluticasone Propionate 1 spray 12/15/17 10:00 12/16/17 09:38 Flonase - NS 1 spray BID [facility] Administration Loratadine 10 mg 12/15/17 10:00 12/16/17 09:34 Claritin - PO 10 mg DAILY [facility] Administration Ondansetron HCl 4 mg 12/12/17 14:45 Zofran Odt - SL Q6H PRN NAUSEA AND/OR VOMITING Sodium Chloride 2 spray 12/15/17 09:29 12/15/17 21:14 [place] Nasal [place] - NS 2 sprays BID PRN Administration NASAL CONGESTION Warfarin Sodium 6 mg 12/15/17 09:30 12/15/17 17:14 Coumadin - PO 6 mg DAILY@1800 [facility] Administration Vital Signs: Vital Signs Period Temp Pulse Resp BP Sys/Lucero Pulse Ox Last 24 Hr 97.5 F-98.5 F 71-84 20-20 101-124/46-73 97-97 Constitutional: Yes: Well Nourished, No Distress Eyes: No: Sclera Icterus HENT: No: Nasal Congestion Respiratory: Yes: CTA Bilaterally. No: Accessory Muscle Use, Rales, Wheezes Gastrointestinal: Yes: Normal Bowel Sounds. No: Distention, Hepatomegaly, Palpable Mass, Tenderness Cardiovascular: Yes: Regular Rate and Rhythm JVD: No Carotid Bruit: No Heart Sounds: Yes: S1, S2. No: Gallop Murmur: Yes: Systolic Murmur (soft, flat syst murmur L apex). No: Diastolic Murmur Extremities: No: Cool, Cyanosis Edema: No Integumentary: No: Jaundice Neurological: Yes: Alert, Oriented (x3) Psychiatric: No: Agitated Assessment/Plan EKG: NSR. no pathological q waves. NS TWIs inferior and anterior leads-- compared to priors, the TWIs in anterior leads have been present on prior ECGs done in 04/2017 and in 01/2016. CXR: clear lungs/pleura. no vascular redistribution echo 04/2017: nl lv/rv. sev lae. mild alexandro. mod ecc mr. mild-mod tr. estimated rvsp 43 echo 07/2016: nl lv/rv. 1+ lae. 1+ mr. mild-mod tr. mod pr. nl rvsp. echo 12/2017 nl lv/rv, LA mod dilated, mod MR, mod to sev TR, PASP >46 mmHg, mild AR MIBI 07/2016: no isch ST changes. normal perfusion, nl EF tele: NSR 86 yo smoker with a history of A. fib on Coumadin/amiodarone, htn, mild mr, gerd , diverticulosis who presents with cough/dizziness and noted to have mild troponin elevation + trop - baseline troponin 0.08 (stable on serial las) in 04/25. - trop here 0.09 x 2--not c/w NSTEMI. and not in range diagnostic of myocardial injury in absence of suspicious clinical picture - ECG here not significantly changed vs priors (waxing and waning degree of TWIs in anterior leads on prior ECGs, often similar to the present tracing) - echo nl LV/RV function with mod MR, mod to severe TR. similar to prior from productive cough: - normal WBC and temp - bnp 2500 (from 800 in 2016) - CXR with no findings of congestion/vascular redistribution - sob only related to coughing fits. cough improving on its own--suspect URI vs a.e. copd. defer tx of these to dr mayen - defer swathi, remains euvolemic paroxysmal atrial fibrillation - s/p ablation 05/2017. on no rate/rhythm meds now at home. - con't AC with coumadin mitral regurgitation: - eccentric MR, reported as moderate on current echo, preserved LF fxn. mild pulm HTN noted, stable on echo 12/2017 + tobacco - tobacco cessation counseling stable from cardiac perspective
== END 2017-12-16 11:26 | disposition home or self-care (01) | DRG 866 ==
LOC: JER 10:46 → JERBED 17:59 → J4W 12-13 06:01
PROVIDERS: ADMIT Family Medicine; ATTEND Family Medicine
DX: B34.9 Viral infection, unspecified (principal); R64 Cachexia; Z68.1 Body mass index [BMI] 19.9 or less, adult; J06.9 Acute upper respiratory infection, unspecified; I48.0 Paroxysmal atrial fibrillation; I34.0 Nonrheumatic mitral (valve) insufficiency; F17.210 Nicotine dependence, cigarettes, uncomplicated; I48.91 Unspecified atrial fibrillation; Z79.01 Long term (current) use of anticoagulants; K21.9 Gastro-esophageal reflux disease without esophagitis; K57.30 Diverticulosis of large intestine without perforation or abscess without bleeding
CPT/HCPCS: 36415; 71046-TC-FY; 80053; 80061; 81003; 81015; 82803; 83721; 83880; 84439; 84443; 84484; 85025; 85027; 85610; 87086; 93005; 93010; 93306-TC; 97116-GP; 97161-GP; 99285-25; J1756; J7030

== ENCOUNTER 2018-01-24 09:40 | Inpatient (IN) | payer OTHER, MEDICARE ==
[2018-01-24 09:53] VITALS: BMI 20.6
--- NOTE | 2018-01-24 09:54 | PDOC ---
*Physical Exam - Vital Signs Last Vital Signs Temp Pulse Resp BP Pulse Ox 98.4 F 94 H 16 106/65 98 01/24/18 09:50 01/24/18 09:50 01/24/18 09:50 01/24/18 09:50 01/24/18 09:50 *DC/Admit/Observation/Transfer - Referrals Referrals: Tisha Urban MD [Primary Care Provider] - - Patient Instructions - Post Discharge Activity
[2018-01-24] MEDS ORDERED: traMADol HCL 50 MG TABLET PO ONE (10:24)
--- NOTE | 2018-01-24 10:24 | PDOC ---
History of Present Illness - General Chief Complaint: Pain, Acute Stated Complaint: BILATERAL KNEE PAIN Time Seen by Provider: 01/24/18 09:54 History Source: Patient Exam Limitations: No Limitations - History of Present Illness Initial Comments: 01/24/18 10:47 The patient is a 87 year old female with a PMH of A.Fib, s/p ablation, on Coumadin, COPD, recently admitted to [facility] for COPD exacerbation, diarrhea, that presented today complaining of bilateral knee pain. The right knee started hurting her 3 days ago and right one overnight. The patient applied cold/warm compresses, took Tylenol without improvement. She denies trauma, fever, chills. She had left knee inflammation in the past that was treated with cortisone shots. Differential diagnosis includes: septic joint, inflammatory or hemarthrosis since the patient is on Coumadin, had recent change of dose. We will order: CBC with diff, INR, CMP, ESR, CRP and x ray of the knee b/l. Severity: Yes: severe Lower Extremity Pain Location: bilateral: knee Modifying Factors: improves with: None Lower Ext. Injury Location - Specific Injury Location Legs: bilateral: limited range of motion Knees: right non-tender, left soft tissue tenderness, bilateral no evidence of injury, bilateral swelling, bilateral pain Past History - Past Medical History Allergies/Adverse Reactions: Allergies Allergy/AdvReac Type Severity Reaction Status Date / Time No Known Drug Allergies Allergy Verified 10/13/17 14:08 Home Medications: Ambulatory Orders Calcium Carbonate/Vitamin D3 [Calcium 600-Vit D3 800 Caplet] 1 each PO DAILY 10/23 Ferrous Fumarate/Ascorbic Acid [Nasima-Sequels 65-25 mg Caplet] 1 each PO DAILY 10/13/17 Sennosides [Senokot] 8.6 mg PO HS 10/13/17 Vit C/Vit E AC/Lut/Copper/Zinc [Preservision Lutein Softgel] 1 tablet PO DAILY 10/13/17 Acetaminophen [Tylenol .Regular Strength -] 650 mg PO Q6H PRN tablet 12/16/17 Sodium Chloride Nasal [place] [[place] Nasal [place] -] 2 spray NS BID PRN spray 12/16/17 Amiodarone HCl [Cordarone -] 200 mg PO DAILY 01/24/18 Coumadin 7 mg PO DAILY 01/24/18 Anemia: No Asthma: No Cancer: No Cardiac Disorders: Yes (A-Fib, mitral regurgitation) CVA: No COPD: No CHF: No Dementia: No Diabetes: No GI Disorders: Yes (GERD) Disorders: No HTN: No Hypercholesterolemia: No Liver Disease: No Seizures: No Thyroid Disease: No - Surgical History Abdominal Surgery: Yes Appendectomy: Yes (1950s) Cardiac Surgery: Yes (ablation) Cholecystectomy: No Lung Surgery: No Neurologic Surgery: No Orthopedic Surgery: Yes (Hip replacement) - Immunization History Immunization Up to Date: Yes - Suicide/Smoking/Psychosocial Hx Smoking Status: Yes Smoking History: Never smoked Have you smoked in the past 12 months: Yes Number of Cigarettes Smoked Daily: 10 Information on smoking cessation initiated: No 'Breaking Loose' booklet given: 12/21/17 Hx Alcohol Use: No Drug/Substance Use Hx: No Substance Use Type: None Hx Substance Use Treatment: No Review of Systems - Review of Systems Able to Perform ROS?: Yes Is the patient limited [place] proficient: Yes Constitutional: Yes: Symptoms Reported Musculoskeletal: Yes: See HPI *Physical Exam - Vital Signs Last Vital Signs Temp Pulse Resp BP Pulse Ox 98.4 F 94 H 16 106/65 98 01/24/18 09:50 01/24/18 09:50 01/24/18 09:50 01/24/18 09:50 01/24/18 09:50 - Physical Exam General Appearance: Yes: Nourished Respiratory/Chest: positive: Lungs Clear, Normal Breath Sounds. negative: Accessory Muscle Use Cardiovascular: positive: S1, S2, Irregular. negative: Murmur Vascular Pulses: Dorsalis-Pedis (R): 2+, Doralis-Pedis (L): 2+ Extremity: positive: Tender (in left knee, anterior and posterior), Swelling ( bilateral knee, more on right side, medially). negative: Cyanosis, Calf Tenderness, Erythema Neurologic: positive: Fully Oriented, Alert, Normal Mood/Affect ED Treatment Course - LABORATORY CBC & Chemistry Diagram: 01/25/18 06:15 01/25/18 06:15 *DC/Admit/Observation/Transfer Diagnosis at time of Disposition: Hemarthrosis of knee, left - Discharge Dispostion Condition at time of disposition: Stable - Referrals - Patient Instructions - Post Discharge Activity
[2018-01-24] MEDS ORDERED: traMADol HCL 50 MG TABLET ONE (10:33)
[2018-01-24 10:48] LABS: BASO % 0.5 % (0-2.0); EOS % 0.3 % (0-4.5); HEMATOCRIT 38.7 % (32.4-45.2); HEMOGLOBIN 13.3 GM/dL (10.7-15.3); LYMPH % 16.2 % (8-40); MCH 30.5 pg (25.7-33.7); MCHC 34.3 g/dl (32.0-36.0); MEAN CELL VOLUME 88.7 fl (80-96); MEAN PLT VOLUME 8.6 fl (7.5-11.1); PLATELET COUNT 270 K/MM3 (134-434); RBC 4.37 M/mm3 (3.60-5.2); RDW 14.7 % (11.6-15.6); WHITE BLOOD COUNT 9.7 K/mm3 (4.0-10.0)
[2018-01-24 11:17] LABS: INR 3.01 (0.83-1.09); PROTHROMBIN TIME (PATIENT) 35.9 SEC (9.7-13.0)
[2018-01-24 11:42] LABS: ANION GAP 9 MMOL/L (8-16); BLOOD UREA NITROGEN 12 mg/dL (7-18); CALCIUM 8.9 mg/dL (8.5-10.1); CHLORIDE 105 mmol/L (98-107); CO2 22 mmol/L (21-32); CREATININE 0.8 mg/dL (0.55-1.3); GLUCOSE,RANDOM 84 mg/dL (74-106); POTASSIUM 3.8 mmol/L (3.5-5.1); SODIUM 136 mmol/L (136-145)
[2018-01-24 12:34] LABS: ERYTHROCYTE SEDIMENTATION RATE 80 mm/hr (0-30)
--- NOTE | 2018-01-24 13:11 | PDOC ---
*Physical Exam - Vital Signs Last Vital Signs Temp Pulse Resp BP Pulse Ox 98.4 F 94 H 16 106/65 98 01/24/18 09:50 01/24/18 09:50 01/24/18 09:50 01/24/18 09:50 01/24/18 09:50 ED Treatment Course - LABORATORY CBC & Chemistry Diagram: 01/24/18 10:40 01/24/18 10:40 - ADDITIONAL ORDERS Additional order review: Laboratory Results 01/24/18 01/24/18 01/24/18 10:40 10:40 10:40 WBC 9.7 RBC 4.37 Hgb 13.3 Hct 38.7 D MCV 88.7 MCH 30.5 MCHC 34.3 RDW 14.7 Plt Count 270 D MPV 8.6 D Absolute Neuts (auto) 7.0 Neutrophils % 72.0 D Lymphocytes % 16.2 D Monocytes % 11.0 H Eosinophils % 0.3 D Basophils % 0.5 Nucleated RBC % 0 ESR 80 H PT with INR 35.90 H INR 3.01 H Sodium 136 Potassium 3.8 Chloride 105 Carbon Dioxide 22 Anion Gap 9 BUN 12 Creatinine 0.8 Creat Clearance w eGFR > 60 Random Glucose 84 Calcium 8.9 C-Reactive Protein 21.7 H 01/24/18 10:40 RBC 4.37 MCV 88.7 MCHC 34.3 RDW 14.7 MPV 8.6 D Neutrophils % 72.0 D Lymphocytes % 16.2 D Monocytes % 11.0 H Eosinophils % 0.3 D Basophils % 0.5 - Medications Given in the ED: ED Medications Discontinued Medications Generic Name Dose Route Start Last Admin Trade Name Freq PRN Reason Stop Dose Admin Tramadol HCl 50 mg 01/24/18 10:24 01/24/18 10:42 Ultram - PO 01/24/18 10:25 50 mg ONCE ONE Administration Medical Decision Making - Medical Decision Making 01/24/18 13:[address] Bray who advised not doing an arthroxcentesis as this is probably a bleed in the joint due to INR of 3 due to recent coumadin change. Spoke to Dr. Urban who will admit the patient as she is unable to ambulate, lives alone. *DC/Admit/Observation/Transfer Diagnosis at time of Disposition: Hemarthrosis of knee, left - Discharge Dispostion Condition at time of disposition: Stable Decision to Admit order: Yes - Referrals Referrals: Tisha Urban MD [Primary Care Provider] - - Patient Instructions - Post Discharge Activity
--- NOTE | 2018-01-24 13:32 | HP ---
Admitting History and Physical - Primary Care Physician PCP: Tisha Urban - Admission Chief Complaint: came in for bilateral knee pain History of Present Illness: The patient is a 87 year old female with a PMH of A.Fib, s/p ablation, on Coumadin, COPD, recently admitted to [facility] for COPD exacerbation, diarrhea, that presented today complaining of bilateral knee pain. The right knee started hurting her 3 days ago and left one overnight. The patient applied cold/warm compresses, took Tylenol without improvement. She denies trauma, fever, chills. She had left knee inflammation in the past that was treated with cortisone shots. per patient no trauma and it suddenly started swellling 3 days ago, then last night the left knee startedswelling and got painful, she is not able to bear weight on it she is on Coumadin - Past Medical History Cardiovascular: Yes: AFIB, HTN, Hyperlipdemia Gastrointestinal: Yes: GERD - Smoking History Smoking history: Never smoked Have you smoked in the past 12 months: Yes Aproximately how many cigarettes per day: 10 - Alcohol/Substance Use Hx Alcohol Use: No - Social History ADL: Independent History of Recent Travel: No Home Medications - Allergies Allergies/Adverse Reactions: Allergies Allergy/AdvReac Type Severity Reaction Status Date / Time No Known Drug Allergies Allergy Verified 10/13/17 14:08 - Home Medications Home Medications: Ambulatory Orders Calcium Carbonate/Vitamin D3 [Calcium 600-Vit D3 800 Caplet] 1 each PO DAILY 10/23 Ferrous Fumarate/Ascorbic Acid [Nasima-Sequels 65-25 mg Caplet] 1 each PO DAILY 10/13/17 Sennosides [Senokot] 8.6 mg PO HS 10/13/17 Vit C/Vit E AC/Lut/Copper/Zinc [Preservision Lutein Softgel] 1 tablet PO DAILY 10/13/17 Acetaminophen [Tylenol .Regular Strength -] 650 mg PO Q6H PRN tablet 12/16/17 Sodium Chloride Nasal [place] [[place] Nasal [place] -] 2 spray NS BID PRN spray 12/16/17 Amiodarone HCl [Cordarone -] 200 mg PO DAILY 01/24/18 Coumadin 7 mg PO DAILY 01/24/18 Review of Systems - Review of Systems Cardiovascular: reports: No Symptoms Respiratory: reports: No Symptoms Gastrointestinal: reports: No Symptoms Musculoskeletal: reports: Joint Pain (bilateral knee pain) Physical Examination Vital Signs: Vital Signs Temperature 98.4 F 01/24/18 09:50 Pulse Rate 94 H 01/24/18 09:50 Respiratory Rate 16 01/24/18 09:50 Blood Pressure 106/65 01/24/18 09:50 O2 Sat by Pulse Oximetry (%) 98 01/24/18 09:50 Constitutional: Yes: Calm, Thin Cardiovascular: Yes: Pulse Irregular, S1, S2 Respiratory: Yes: CTA Bilaterally Gastrointestinal: Yes: Normal Bowel Sounds, Soft Musculoskeletal: Yes: Joint Swelling (right knee soft swollen keft knee swollen and tender to touch) Labs: CBC, BMP 01/24/18 10:40 01/24/18 10:40 Imaging - Results X-ray: Report Reviewed Problem List - Problems (1) Hemarthrosis of knee, left Assessment/Plan: ct scan w/o contrast of left knee ortho consult dr chyna mayberry couamdin Code(s): M25.062 - HEMARTHROSIS, LEFT KNEE (2) Abnormal INR Assessment/Plan: inr 3.01 jefe coumadin Code(s): R79.1 - ABNORMAL COAGULATION PROFILE (3) Afib Assessment/Plan: cardiology dr hutchinson smiodarone Code(s): I48.91 - UNSPECIFIED ATRIAL FIBRILLATION
--- NOTE | 2018-01-24 13:59 | PDOC ---
Attending Attestation - Resident Resident Name: LidiamoodyjimRadha - ED Attending Attestation I have performed the following: I have examined & evaluated the patient, The case was reviewed & discussed with the resident, I agree w/resident's findings & plan, Exceptions are as noted - HPI HPI: 87 yo F history afib, COPD presents with B/L knee pain for past few days. She states the R knee is worse than the left. No fever, no rash. - Physicial Exam PE: GENERAL: Awake, alert, and fully oriented, in no acute distress HEAD: No signs of trauma EYES: PERRLA, EOMI, sclera anicteric, conjunctiva clear ENT: Auricles normal inspection, hearing grossly normal, nares patent, oropharynx clear without exudates. Moist mucosa NECK: Normal ROM, supple, no lymphadenopathy, JVD, or masses LUNGS: Breath sounds equal, clear to auscultation bilaterally. No wheezes, and no crackles HEART: Regular rate and rhythm, normal S1 and S2, no murmurs, rubs or gallops ABDOMEN: Soft, nontender, normoactive bowel sounds. No guarding, no rebound. No masses EXTREMITIES: B/L knees with effusions, R>L. No erythema, no warmth, no bony tenderness. ROM limited due to severe pain. Remainder of extremities with normal range of motion, no edema. No clubbing or cyanosis. No cords, erythema, or tenderness NEUROLOGICAL: Cranial nerves II through XII grossly intact. Normal speech. Motor and sensation intact. SKIN: Warm, Dry, normal turgor, no rashes or lesions noted. - Medical Decision Making Suspect hemarthrosis based on recent adjustment of coumadin and in light of bilateral findings. There is no warmth, induration. Septic joint considered unlikely based on clinical findings. Arthrocentesis not indicated based on suspicion of hemarthrosis and pt with INR 3.
--- NOTE | 2018-01-24 17:03 | CONSULT ---
Consult - text type - Consultation Consultation Note: FULL CONSULT DICTATED IMP: B KNEE HEMARTHROSIS SECONDARY TO DJD AND ELEVATED INR PLAN: REST, ICE, BRING INR DOWN TO THERAPEUTIC LEVELS, PT-WBAT
--- NOTE | 2018-01-24 17:16 | CON.CARD ---
Cardiology Consult (text) - Consultation Consultation Note: Consultation Note: Chief Complaint: bilateral knee pain History of Present Illness: 87 F presented with knee pain. Recent admit for fever, diarrhea, weakness, COPD exac. has h/o afib on coumadin, noted to have hemarthrosis. No cp sob loc pnd orthopnea le edema palps. Sees Dr. Levi for cardio. knee pain for 3 days, L>R, no trauma. Coumadin was held. A week ago dose of coumadin was increased, had been taking 6 mg daily and was increased to 7 mg daily. PMH: afib mitral regurg + cigs GERD - Past Medical History Cardio/Vascular: Yes: AFIB, HTN, Hyperlipdemia Gastrointestinal: Yes: GERD - Alcohol/Substance Use Hx Alcohol Use: Yes (JIN 1 GLASS Q NIGHT) - Smoking History Smoking history: Current every day smoker Have you smoked in the past 12 months: Yes Aproximately how many cigarettes per day: 10 Home Medications - Allergies Allergies/Adverse Reactions: Allergies Allergy/AdvReac Type Severity Reaction Status Date / Time No Known Drug Allergies Allergy Verified 10/13/17 14:08 - Home Medications Home Medications: Ambulatory Orders Calcium Carbonate/Vitamin D3 [Calcium 600-Vit D3 800 Caplet] 1 each PO DAILY 10/23 Ferrous Fumarate/Ascorbic Acid [Nasima-Sequels 65-25 mg Caplet] 1 each PO DAILY 10/13/17 Sennosides [Senokot] 8.6 mg PO HS 10/13/17 Vit C/Vit E AC/Lut/Copper/Zinc [Preservision Lutein Softgel] 1 tablet PO DAILY 10/13/17 Acetaminophen [Tylenol .Regular Strength -] 650 mg PO Q6H PRN tablet 12/16/17 Sodium Chloride Nasal [place] [[place] Nasal [place] -] 2 spray NS BID PRN spray 12/16/17 Amiodarone HCl [Cordarone -] 200 mg PO DAILY 01/24/18 Coumadin 7 mg PO DAILY 01/24/18 Review of Systems - Review of Systems Eyes: denies: Eye Pain HENT: denies: Nasal Congestion Neck: denies: Stiffness Respiratory: denies: Orthopnea, PND Gastrointestinal: denies: Rectal Bleeding Genitourinary: denies: Burning, Hematuria Musculoskeletal: denies: Muscle Pain Integumentary: denies: Rash Neurological: denies: Numbness, Seizure, Syncope Endocrine: denies: Excessive Sweating Hematology/Lymphatic: denies: Excessive Bleeding Vital Signs: Vital Signs Period Temp Pulse Resp BP Sys/Lucero Pulse Ox Last 24 Hr 98.0 F-98.4 F 94-94 16-18 106-134/60-65 98-99 Constitutional: Yes: Well Nourished, No Distress Eyes: No: Sclera Icterus HENT: No: Nasal Congestion Neck: No: Decreased ROM Respiratory: Yes: CTA Bilaterally. No: Accessory Muscle Use, Rales, Wheezes Gastrointestinal: Yes: Normal Bowel Sounds. No: Distention, Hepatomegaly, Palpable Mass, Tenderness Cardiovascular: Yes: Regular Rate and Rhythm JVD: No Carotid Bruit: No PMI: Non-Displaced Heart Sounds: Yes: S1, S2. No: Gallop Murmur: Yes: Systolic Murmur (soft, flat syst murmur L apex). No: Diastolic Murmur Musculoskeletal: Yes: Other (No kyphosis) Extremities: No: Cool, Cyanosis Edema: No Peripheral Pulses: 2+ Left Carotid, 2+ Right Carotid, 2+ Left Doralis Pedis, 2+ Right Dorsalis Pedis Integumentary: No: Jaundice Neurological: Yes: Alert, Oriented (x3) Psychiatric: No: Agitated Laboratory Results - last 24 hr 01/24/18 01/24/18 01/24/18 10:40 10:40 10:40 WBC 9.7 RBC 4.37 Hgb 13.3 Hct 38.7 D MCV 88.7 MCH 30.5 MCHC 34.3 RDW 14.7 Plt Count 270 D MPV 8.6 D Absolute Neuts (auto) 7.0 Neutrophils % 72.0 D Lymphocytes % 16.2 D Monocytes % 11.0 H Eosinophils % 0.3 D Basophils % 0.5 Nucleated RBC % 0 ESR 80 H PT with INR 35.90 H INR 3.01 H Sodium 136 Potassium 3.8 Chloride 105 Carbon Dioxide 22 Anion Gap 9 BUN 12 Creatinine 0.8 Creat Clearance w eGFR > 60 Random Glucose 84 Calcium 8.9 C-Reactive Protein 21.7 H tele: currently sr CXR: clear lungs echo 04/2017: nl lv/rv. sev lae. mild alexandro. mod ecc mr. mild-mod tr. estimated rvsp 43 echo 07/2016: nl lv/rv. 1+ lae. 1+ mr. mild-mod tr. mod pr. nl rvsp. echo 12/2017 nl lv/rv, LA mod dilated, mod MR, mod to sev TR, PASP >46 mmHg, mild AR MIBI 07/2016: no isch ST changes. normal perfusion, nl EF a/p: 87 yo f hx smoking with a history of A. fib on Coumadin/amiodarone, htn, mild mr, gerd, diverticulosis who presents with bilateral knee pain knee pain - seen by Dr Bray, holding coumadin paroxysmal atrial fibrillation - s/p ablation 05/2017. - coumadin held due to hemarthorsis - continue amiodarone, asymptomatic since starting mitral regurgitation: - eccentric MR, reported as moderate on current echo, preserved LF fxn. mild pulm HTN noted, stable on echo 12/2017 + tobacco - tobacco cessation counseling fever, diarrhea: -abx per PMD
--- NOTE | 2018-01-24 18:06 | CONS ---
DATE OF CONSULTATION: 01/24/2018 ORTHOPEDIC CONSULTATION/[facility] Patient is an 87-year-old female well known to me. She is status post right total hip replacement performed by myself on October 26, 2017. Patient was doing quite well with the total hip replacement, has been on Coumadin secondary to cardiology needs, presents to the emergency room today complaining of increased pain in both knees. Initially the right knee was bothering her 2 days ago, and now today her left knee is bothering her, with difficulty walking. Patient has no complaints of pain in her right hip. On physical exam, her right hip incision is well healed. No erythema or drainage. Excellent range of motion of her right hip. Equal limb lengths are seen. She has a [id number] effusion in bilateral knees. No erythema, no increased warmth. She is able to straight leg raise but with some difficulty. Range of motion is quite painful. She leaves the knees in about 10 degrees of flexion. Calf is soft, nontender. Excellent motion ankle and toes. Labs performed upon admission are significant for a white blood count of 9.7, though she does have an ESR of 80. Her INR was 3.01. X-rays performed upon admission are positive for DJD in both her knees, mild to moderate. No acute fracture or dislocations. Vital signs upon admission show a normal temperature, slight tachycardia, with normal O2 saturation. IMPRESSION: Bilateral hemarthrosis secondary to degenerative joint disease and elevated INR secondary to Coumadin use. Patient does state that her Coumadin dosage was elevated recently as her INR was subtherapeutic on previous visits. PLAN: Currently I would subscribe rest, ice to bilateral knees, physical therapy, normalize the INR to a therapeutic range of between 2 and 2.5, and progressive mobilization. I will follow the patient while she is here in the hospital. BERE LOPEZ M.D. [id number]
--- NOTE | 2018-01-24 21:07 | CONSULT ---
Consult - text type - Consultation Consultation Note: Patient seen and examined The patient is a 87 year old female with a PMH of A.Fib, s/p ablation, on Coumadin, COPD, recently admitted to [facility] for COPD exacerbation, diarrhea, that presented today complaining of bilateral knee pain. The right knee started hurting her 3 days ago and left one overnight. The patient applied cold/warm compresses, took Tylenol without improvement. She denies trauma, fever, chills. She had left knee inflammation in the past that was treated with cortisone shots. per patient no trauma and it suddenly started swellling 3 days ago, then last night the left knee startedswelling and got painful, she is not able to bear weight on it - Past Medical History Cardiovascular: Yes: AFIB, HTN, Hyperlipdemia Gastrointestinal: Yes: GERD - Smoking History Smoking history: Never smoked Have you smoked in the past 12 months: Yes Aproximately how many cigarettes per day: 10 - Alcohol/Substance Use Hx Alcohol Use: No - Social History ADL: Independent History of Recent Travel: No Home Medications - Allergies Allergies/Adverse Reactions: Allergies Allergy/AdvReac Type Severity Reaction Status Date / Time No Known Drug Allergies Allergy Verified 10/13/17 14:08 - Home Medications Home Medications: Ambulatory Orders Calcium Carbonate/Vitamin D3 [Calcium 600-Vit D3 800 Caplet] 1 each PO DAILY 10/23 Ferrous Fumarate/Ascorbic Acid [Nasima-Sequels 65-25 mg Caplet] 1 each PO DAILY 10/13/17 Sennosides [Senokot] 8.6 mg PO HS 10/13/17 Vit C/Vit E AC/Lut/Copper/Zinc [Preservision Lutein Softgel] 1 tablet PO DAILY 10/13/17 Acetaminophen [Tylenol .Regular Strength -] 650 mg PO Q6H PRN tablet 12/16/17 Sodium Chloride Nasal [place] [[place] Bode Nasal [place] -] 2 spray NS BID PRN spray 12/16/17 Amiodarone HCl [Cordarone -] 200 mg PO DAILY 01/24/18 Coumadin 7 mg PO DAILY 01/24/18 Review of Systems - Review of Systems Cardiovascular: reports: No Symptoms Respiratory: reports: No Symptoms Gastrointestinal: reports: No Symptoms Musculoskeletal: reports: Joint Pain (bilateral knee pain) Physical Examination Vital Signs: Vital Signs Temperature 98.4 F 01/24/18 09:50 Pulse Rate 94 H 01/24/18 09:50 Respiratory Rate 16 01/24/18 09:50 Blood Pressure 106/65 01/24/18 09:50 O2 Sat by Pulse Oximetry (%) 98 01/24/18 09:50 Constitutional: Yes: Calm, Thin Cardiovascular: Yes: Pulse Irregular, S1, S2 Respiratory: Yes: CTA Bilaterally Gastrointestinal: Yes: Normal Bowel Sounds, Soft Musculoskeletal: Yes: Joint Swelling (right knee soft swollen keft knee swollen and tender to touch) Labs: CBC, BMP 01/24/18 10:40 01/24/18 10:40 Imaging - Results X-ray: Report Reviewed A/P 87 y/o with recent rt. hip replacement in 10/2017, on coumdin for afib presents woth spontaneous b/l knee hemarthrosis, INR of 3. no prior h/o bleeding diathesis on coumadin which she has been on for years. Was seen by orthopaedics/cardiology --holding coumadin , allowing INR to drift down to 2-2.5 brfore resuming Local ice packs
[2018-01-24] MEDS: SENNOSIDES 8.6MG TABLET (FP) PO SCH (21:36)
[2018-01-24] MEDS: traMADol HCL 50 MG TABLET PO PRN (21:36)
[2018-01-25 07:21] LABS: BASO % 0.3 % (0-2.0); EOS % 0.5 % (0-4.5); HEMATOCRIT 33.3 % (32.4-45.2); HEMOGLOBIN 10.7 GM/dL (10.7-15.3); LYMPH % 27.5 % (8-40); MCHC 32.1 g/dl (32.0-36.0); MEAN CELL VOLUME 90.3 fl (80-96); MEAN PLT VOLUME 8.9 fl (7.5-11.1); MONO % 13.5 % (3.8-10.2); NEUT % 58.2 % (42.8-82.8); PLATELET COUNT 219 K/MM3 (134-434); RBC 3.69 M/mm3 (3.60-5.2); RDW 14.3 % (11.6-15.6); WHITE BLOOD COUNT 7.8 K/mm3 (4.0-10.0)
[2018-01-25 07:44] LABS: ALBUMIN 2.6 g/dl (3.4-5.0); ALK PHOS 60 U/L (45-117); ANION GAP 11 MMOL/L (8-16); BILIRUBIN,TOTAL 1.7 mg/dL (0.2-1); BLOOD UREA NITROGEN 11 mg/dL (7-18); CALCIUM 8.3 mg/dL (8.5-10.1); CHLORIDE 105 mmol/L (98-107); CO2 21 mmol/L (21-32); CREATININE 0.7 mg/dL (0.55-1.3); GLUCOSE,RANDOM 82 mg/dL (74-106); MAGNESIUM 2.1 mg/dL (1.8-2.4); PHOSPHOROUS 3.2 mg/dL (2.5-4.9); POTASSIUM 3.7 mmol/L (3.5-5.1); SGOT/AST 9 U/L (15-37); SGPT/ALT 8 U/L (13-61); SODIUM 137 mmol/L (136-145); TOT PROT 5.9 g/dl (6.4-8.2)
[2018-01-25] MEDS: AMIODARONE HCL 200 MG TABLET (FP) PO SCH (09:03)
[2018-01-25 09:19] LABS: INR 3.17 (0.83-1.09); PROTHROMBIN TIME (PATIENT) 37.8 SEC (9.7-13.0)
[2018-01-25 09:21] LABS: ACTIVATED PTT 39.1 SECONDS (25.2-36.5)
[2018-01-25] MEDS: traMADol HCL 50 MG TABLET PO PRN ×2 (10:56→22:12)
--- NOTE | 2018-01-25 15:24 | PN ---
Progress Note, Physician Chief Complaint: AWAKE ALERT EVENTS AND NOTES REVIEWED IN MODERATE DISTRESS - Current Medication List Current Medications: Active Medications Amiodarone HCl (Cordarone -) 200 mg PO DAILY [facility] Last Admin: 01/25/18 09:03 Dose: Not Given Senna (Senna -) 1 tab PO HS [facility] Last Admin: 01/24/18 21:36 Dose: 1 tab Tramadol HCl (Ultram -) 50 mg PO TID PRN PRN Reason: PAIN LEVEL 7 - 10 Last Admin: 01/25/18 10:56 Dose: 50 mg - Objective Vital Signs: Vital Signs Temperature 97.9 F 01/25/18 10:00 Pulse Rate 85 01/25/18 10:00 Respiratory Rate 18 01/24/18 21:29 Blood Pressure 89/51 L 01/25/18 10:00 O2 Sat by Pulse Oximetry (%) 97 01/24/18 21:00 Constitutional: Yes: Moderate Distress Eyes: Yes: WNL HENT: Yes: WNL Neck: Yes: WNL Cardiovascular: Yes: Pulse Irregular Respiratory: Yes: WNL Gastrointestinal: Yes: WNL Genitourinary: Yes: WNL Musculoskeletal: Yes: Joint Swelling Extremities: Yes: Erythema Peripheral Pulses WNL: Yes Integumentary: Yes: WNL Wound/Incision: Yes: Clean/Dry Neurological: Yes: WNL ...Motor Strength: LLE, RLE Psychiatric: Yes: WNL Labs: CBC, BMP 01/25/18 06:15 01/25/18 06:15 INR, PTT INR 3.17 (0.83-1.09) H 01/25/18 06:15 Problem List - Problems (1) Hemarthrosis of knee, left Code(s): M25.062 - HEMARTHROSIS, LEFT KNEE (2) Abnormal INR Code(s): R79.1 - ABNORMAL COAGULATION PROFILE (3) Afib Code(s): I48.91 - UNSPECIFIED ATRIAL FIBRILLATION (4) Weakness Code(s): R53.1 - WEAKNESS Assessment/Plan COUMADIN ON HOLD ICE PACKS TO KNEES PT EVAL
[2018-01-25] MEDS: SENNOSIDES 8.6MG TABLET (FP) PO SCH (22:12)
[2018-01-26] MEDS: traMADol HCL 50 MG TABLET PO PRN ×2 (02:24→20:26)
[2018-01-26 07:54] LABS: INR 2.14 (0.83-1.09); PROTHROMBIN TIME (PATIENT) 25.5 SEC (9.7-13.0)
[2018-01-26] MEDS: AMIODARONE HCL 200 MG TABLET (FP) PO SCH (10:55)
[2018-01-26] MEDS: MEGESTROL ACETATE 400 MG/10 ML UNIT DOSE CUP PO SCH (10:56)
--- NOTE | 2018-01-26 14:17 | PN ---
Progress Note (short form) - Note Progress Note: s: no cp sob palps dizzy o: Vital Signs Period Temp Pulse Resp BP Sys/Lucero Pulse Ox Last 24 Hr 98.2 F-98.4 F 79-84 18-20 101-127/50-61 97 Constitutional: Yes: Well Nourished, No Distress Eyes: No: Sclera Icterus Respiratory: Yes: CTA Bilaterally. No: Accessory Muscle Use, Rales, Wheezes Gastrointestinal: Yes: Normal Bowel Sounds. No: Distention, Hepatomegaly, Palpable Mass, Tenderness Cardiovascular: Yes: Regular Rate and Rhythm JVD: No Heart Sounds: Yes: S1, S2. No: Gallop Murmur: Yes: Systolic Murmur (soft, flat syst murmur L apex). No: Diastolic Murmur Extremities: No: Cool, Cyanosis Edema: No Peripheral Pulses: 2+ Left Carotid, 2+ Right Carotid, 2+ Left Doralis Pedis, 2+ Right Dorsalis Pedis Integumentary: No: Jaundice Neurological: Yes: Alert, Oriented (x3) Psychiatric: No: Agitated Current Medications Generic Name Dose Route Start Last Admin Trade Name Freq PRN Reason Stop Dose Admin Amiodarone HCl 200 mg 01/25/18 10:00 01/26/18 10:55 Cordarone - PO 200 mg DAILY VANESA Administration Megestrol Acetate 400 mg 01/26/18 10:00 01/26/18 10:56 Megace Oral Suspension - PO 400 mg DAILY VANESA Administration Senna 1 tab 01/24/18 22:00 01/25/18 22:12 Senna - PO 1 tab HS VANESA Administration Tramadol HCl 50 mg 01/24/18 13:32 01/26/18 02:24 Ultram - PO 50 mg TID PRN Administration PAIN LEVEL 7 - 10 CBC, BMP 01/25/18 06:15 01/25/18 06:15 CXR: clear lungs echo 04/2017: nl lv/rv. sev lae. mild alexandro. mod ecc mr. mild-mod tr. estimated rvsp 43 echo 07/2016: nl lv/rv. 1+ lae. 1+ mr. mild-mod tr. mod pr. nl rvsp. echo 12/2017 nl lv/rv, LA mod dilated, mod MR, mod to sev TR, PASP >46 mmHg, mild AR MIBI 07/2016: no isch ST changes. normal perfusion, nl EF a/p: 87 yo f hx smoking with a history of A. fib on Coumadin/amiodarone, htn, mild mr, gerd, diverticulosis who presents with bilateral knee pain knee pain, spontaneous b/l knee hemarthrosis - seen by ortho and heme, holding coumadin paroxysmal atrial fibrillation - s/p ablation 05/2017 with recurrence of afib and rvr with palps recently. BP too low to tolerate bb/ccb (already tried). D/w EP and plan is for temporary course of amio. - continue amiodarone, asymptomatic since starting - coumadin held due to hemarthrosis mitral regurgitation: - eccentric MR, reported as moderate on current echo, preserved LF fxn. mild pulm HTN noted, stable on echo 12/2017 + tobacco - tobacco cessation counseling
--- NOTE | 2018-01-26 15:31 | PN ---
Progress Note, Physician Chief Complaint: AWAKE ALERT STILL IN PAIN - Current Medication List Current Medications: Active Medications Amiodarone HCl (Cordarone -) 200 mg PO DAILY [facility] Last Admin: 01/26/18 10:55 Dose: 200 mg Megestrol Acetate (Megace Oral Suspension -) 400 mg PO DAILY REPLACED BY [facility] Last Admin: 01/26/18 10:56 Dose: 400 mg Senna (Senna -) 1 tab PO HS REPLACED BY [facility] Last Admin: 01/25/18 22:12 Dose: 1 tab Tramadol HCl (Ultram -) 50 mg PO TID PRN PRN Reason: PAIN LEVEL 7 - 10 Last Admin: 01/26/18 02:24 Dose: 50 mg Warfarin Sodium (Coumadin -) 5 mg PO DAILY@1800 REPLACED BY [facility] - Objective Vital Signs: Vital Signs Temperature 98.2 F 01/26/18 06:00 Pulse Rate 84 01/26/18 06:00 Respiratory Rate 18 01/26/18 06:00 Blood Pressure 127/61 01/26/18 06:00 O2 Sat by Pulse Oximetry (%) 97 01/25/18 22:00 Constitutional: Yes: Mild Distress Eyes: Yes: WNL HENT: Yes: WNL Neck: Yes: WNL Cardiovascular: Yes: Pulse Irregular Respiratory: Yes: WNL Gastrointestinal: Yes: WNL Musculoskeletal: Yes: Muscle Weakness Extremities: Yes: Other Edema: Yes Edema: LLE: 1+, RLE: 1+ Peripheral Pulses WNL: Yes Integumentary: Yes: Erythema Wound/Incision: Yes: Open to air Neurological: Yes: Other ...Motor Strength: LLE, RLE Psychiatric: Yes: WNL Labs: CBC, BMP 01/25/18 06:15 01/25/18 06:15 INR, PTT INR 2.14 (0.83-1.09) H 01/26/18 06:30 Problem List - Problems (1) Hemarthrosis of knee, left Code(s): M25.062 - HEMARTHROSIS, LEFT KNEE (2) Abnormal INR Code(s): R79.1 - ABNORMAL COAGULATION PROFILE (3) Afib Code(s): I48.91 - UNSPECIFIED ATRIAL FIBRILLATION (4) Weakness Code(s): R53.1 - WEAKNESS Assessment/Plan COUMADIN START AT 5MG HS KEEP INR 2-2.5 ICE PACKS TO KNEES PT EVAL
[2018-01-26] MEDS: WARFARIN NA 5 MG TABLET (UD) PO SCH (17:24)
[2018-01-26] MEDS: SENNOSIDES 8.6MG TABLET (FP) PO SCH (21:12)
--- NOTE | 2018-01-27 08:53 | PN ---
Progress Note, Physician - Current Medication List Current Medications: Active Medications Amiodarone HCl (Cordarone -) 200 mg PO DAILY [facility] Last Admin: 01/26/18 10:55 Dose: 200 mg Megestrol Acetate (Megace Oral Suspension -) 400 mg PO DAILY [facility] Last Admin: 01/26/18 10:56 Dose: 400 mg Senna (Senna -) 1 tab PO HS [facility] Last Admin: 01/26/18 21:12 Dose: 1 tab Tramadol HCl (Ultram -) 50 mg PO TID PRN PRN Reason: PAIN LEVEL 7 - 10 Last Admin: 01/26/18 20:26 Dose: 50 mg Warfarin Sodium (Coumadin -) 5 mg PO DAILY@1800 [facility] Last Admin: 01/26/18 17:24 Dose: 5 mg - Objective Vital Signs: Vital Signs Temperature 98.6 F 01/27/18 06:00 Pulse Rate 82 01/27/18 06:00 Respiratory Rate 20 01/27/18 06:00 Blood Pressure 104/56 L 01/27/18 06:00 O2 Sat by Pulse Oximetry (%) 97 01/26/18 21:00 Cardiovascular: Yes: S1, S2 Respiratory: Yes: Regular, CTA Bilaterally Gastrointestinal: Yes: Normal Bowel Sounds, Soft Musculoskeletal: Yes: Joint Stiffness Extremities: Yes: Other (left knee swelling) Labs: CBC, BMP 01/25/18 06:15 01/25/18 06:15 INR, PTT INR 2.14 (0.83-1.09) H 01/26/18 06:30 Assessment/Plan - Problems (1) Hemarthrosis of knee, left Assessment/Plan: ct scan w/o contrast of left knee ortho consult dr clemente noted nita agosto pt Code(s): M25.062 - HEMARTHROSIS, LEFT KNEE (2) Abnormal INR Assessment/Plan: monitor inr Code(s): R79.1 - ABNORMAL COAGULATION PROFILE (3) Afib Assessment/Plan: cardiology dr estrella amiodarone Code(s): I48.91 - UNSPECIFIED ATRIAL FIBRILLATION
[2018-01-27 09:02] LABS: INR 1.83 (0.83-1.09); PROTHROMBIN TIME (PATIENT) 21.7 SEC (9.7-13.0)
[2018-01-27] MEDS: MEGESTROL ACETATE 400 MG/10 ML UNIT DOSE CUP PO SCH (09:24)
[2018-01-27] MEDS: AMIODARONE HCL 200 MG TABLET (FP) PO SCH (09:24)
--- NOTE | 2018-01-27 10:40 | PN ---
Progress Note, Physician Chief Complaint: knee pain History of Present Illness: no palpitations. denies sob, orthopnea. no cp, syncope - Current Medication List Current Medications: Active Medications Amiodarone HCl (Cordarone -) 200 mg PO DAILY [facility] Last Admin: 01/27/18 09:24 Dose: 200 mg Megestrol Acetate (Megace Oral Suspension -) 400 mg PO DAILY [facility] Last Admin: 01/27/18 09:24 Dose: 400 mg Senna (Senna -) 1 tab PO HS [facility] Last Admin: 01/26/18 21:12 Dose: 1 tab Tramadol HCl (Ultram -) 50 mg PO TID PRN PRN Reason: PAIN LEVEL 7 - 10 Last Admin: 01/26/18 20:26 Dose: 50 mg Warfarin Sodium (Coumadin -) 5 mg PO DAILY@1800 [facility] Last Admin: 01/26/18 17:24 Dose: 5 mg - Objective Vital Signs: Vital Signs Temperature 98.6 F 01/27/18 06:00 Pulse Rate 82 01/27/18 06:00 Respiratory Rate 20 01/27/18 06:00 Blood Pressure 104/56 L 01/27/18 06:00 O2 Sat by Pulse Oximetry (%) 97 01/26/18 21:00 Constitutional: Yes: Well Nourished, No Distress, Calm Cardiovascular: Yes: Regular Rate and Rhythm, S1, S2. No: JVD, Gallop, Murmur Respiratory: Yes: Regular, CTA Bilaterally. No: Accessory Muscle Use, Rales, Wheezes Extremities: No: Cold Edema: No Neurological: Yes: Alert, Oriented Psychiatric: No: Agitated Labs: CBC, BMP 01/25/18 06:15 01/25/18 06:15 INR, PTT INR 1.83 (0.83-1.09) H 01/27/18 06:30 Assessment/Plan CXR: clear lungs echo 04/2017: nl lv/rv. sev lae. mild alexandro. mod ecc mr. mild-mod tr. estimated rvsp 43 echo 07/2016: nl lv/rv. 1+ lae. 1+ mr. mild-mod tr. mod pr. nl rvsp. echo 12/2017 nl lv/rv, LA mod dilated, mod MR, mod to sev TR, PASP >46 mmHg, mild AR MIBI 07/2016: no isch ST changes. normal perfusion, nl EF a/p: 87 yo f hx smoking with a history of A. fib on Coumadin/amiodarone, htn, mild mr, gerd, diverticulosis who presents with bilateral knee pain knee pain, spontaneous b/l knee hemarthrosis - seen by ortho and heme, holding coumadin for now paroxysmal atrial fibrillation - s/p ablation 05/2017 with recurrence of afib and rvr with palps recently. BP too low to tolerate bb/ccb (already tried). pt on amio per EP - continue amiodarone, asymptomatic since starting - coumadin held due to hemarthrosis--resume once cleared by ortho - outpt f/u with our office MV and TV regurgitation: - eccentric MR, reported as moderate on current echo, preserved LF fxn. mild pulm HTN noted, stable on echo 12/2017 - no clinical CHF here + tobacco - tobacco cessation counselled, CV benefits reviewed
[2018-01-27] MEDS: WARFARIN NA 5 MG TABLET (UD) PO SCH (17:52)
[2018-01-27] MEDS: traMADol HCL 50 MG TABLET PO PRN (21:36)
[2018-01-27] MEDS: SENNOSIDES 8.6MG TABLET (FP) PO SCH (21:36)
[2018-01-28 08:08] LABS: INR 1.95 (0.83-1.09); PROTHROMBIN TIME (PATIENT) 23.2 SEC (9.7-13.0)
--- NOTE | 2018-01-28 10:08 | PN ---
Progress Note, Physician - Current Medication List Current Medications: Active Medications Amiodarone HCl (Cordarone -) 200 mg PO DAILY [facility] Last Admin: 01/27/18 09:24 Dose: 200 mg Megestrol Acetate (Megace Oral Suspension -) 400 mg PO DAILY [facility] Last Admin: 01/27/18 09:24 Dose: 400 mg Senna (Senna -) 1 tab PO HS [facility] Last Admin: 01/27/18 21:36 Dose: 1 tab Tramadol HCl (Ultram -) 50 mg PO TID PRN PRN Reason: PAIN LEVEL 7 - 10 Last Admin: 01/27/18 21:36 Dose: 50 mg Warfarin Sodium (Coumadin -) 5 mg PO DAILY@1800 [facility] Last Admin: 01/27/18 17:52 Dose: 5 mg - Objective Vital Signs: Vital Signs Temperature 98.5 F 01/28/18 06:00 Pulse Rate 78 01/28/18 06:00 Respiratory Rate 20 01/28/18 06:00 Blood Pressure 83/45 L 01/28/18 06:00 O2 Sat by Pulse Oximetry (%) 96 01/27/18 21:00 Cardiovascular: Yes: S1, S2 Respiratory: Yes: Regular, CTA Bilaterally Gastrointestinal: Yes: Normal Bowel Sounds, Soft Labs: CBC, BMP 01/25/18 06:15 01/25/18 06:15 INR, PTT INR 1.95 (0.83-1.09) H 01/28/18 06:40 Assessment/Plan - Problems (1) Hemarthrosis of knee, left Assessment/Plan: ct scan w/o contrast of left knee ortho consult dr clemente noted resume surendra pt Code(s): M25.062 - HEMARTHROSIS, LEFT KNEE (2) Abnormal INR Assessment/Plan: monitor inr--1.95 Code(s): R79.1 - ABNORMAL COAGULATION PROFILE (3) Afib Assessment/Plan: cardiology dr estrella amiodaronmariela Code(s): I48.91 - UNSPECIFIED ATRIAL FIBRILLATION
[2018-01-28] MEDS: AMIODARONE HCL 200 MG TABLET (FP) PO SCH (10:33)
[2018-01-28] MEDS: MEGESTROL ACETATE 400 MG/10 ML UNIT DOSE CUP PO SCH (10:34)
--- NOTE | 2018-01-28 12:58 | CONS ---
PHYSICAL MEDICINE REHABILITATION CONSULTATION REFERRING PHYSICIAN: Chel Hager MD DATE OF ADMISSION: 01/24/2018 DATE OF CONSULTATION: 01/28/2018 HISTORY OF PRESENT ILLNESS: The patient is an 87-year-old woman with past medical history of atrial fibrillation status post ablation on Coumadin with past medical history of a right total hip replacement in October of 2017 and multiple admissions in the past month including diarrhea and diverticulosis, who was admitted with inability to walk due to knee pain. Patient states about 3 days prior to admission, she developed right knee pain and the day prior to admission left knee pain, which was severe. She was unable to stand or ambulate and was brought to [facility] on January 24. Bilateral knee x-rays showed patellofemoral narrowing, calcification. CT of the bilateral lower extremities showed joint effusion, non-hemorrhagic, with chondrocalcinosis and small loose osteochondral bodies. On admission, INR was elevated at 3.01. WBC was 9.7, hemoglobin 13.3, platelet count 270. Chemistry within normal limits. CRP was elevated at 21.7. Repeat blood work on January 25 showed WBC 7.8, drop in hemoglobin to 10.7, platelet count 219. INR elevated at 3.17. Albumin notably low at 2.6. Chemistry remained within normal limits. Patient was seen by orthopedics. Coumadin was held. INR dropped to 1.83, and as of today, was slightly subtherapeutic at 1.95. Patient was seen by Physical Therapy, able to ambulate 5 feet with a rolling walker, minimal assist of 1 on January 26, and has yet to get therapy today, but does feel some improvement. Pain is mainly in the posterior aspect of the left knee with only slight discomfort in the right knee. 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 SOCIAL HISTORY: She lives alone in an apartment, first floor, no stairs. Patient has equipment due to her recent right hip replacement including a walker, straight cane, grab bars, shower, chair, and raised commode. REVIEW OF SYSTEMS: She denies any lightheadedness, dizziness, any blurry vision , double vision, any nausea, vomiting, difficulty swallowing, difficulty chewing, any chest pain or shortness of breath, any fever or chills. Again, she does have left more than right knee discomfort and also some back discomfort, but no numbness, tingling, or radicular pain. No bowel movement since admission. She is urinating using a bed mccollum, but has not been able to get to the commode as of yet. No diffuse rash. PHYSICAL EXAMINATION: General: On examination, patient is seen lying in bed. She is awake, alert, and cooperative, in no acute distress. HEENT: She is normocephalic and atraumatic. Her extraocular muscles appear intact. Neck: Supple. Extremities: Without any pitting edema or calf tenderness. Skin: Without any rash, breakdown. No ecchymosis in the knees. Neuromuscular: She is awake, alert, fully oriented x3, has good insight into her medical conditions. Cranial nerves 2-12 appear grossly intact. 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 She has normal sensation in the upper extremities. Good joint stability. Good range in the shoulder girdle, elbow flexors, elbow extensors. In the lower extremities, she has fairly good range of motion, slight limitation of flexion in the left knee due to discomfort posteriorly, no discoloration, mild effusion, antigravity hip girdle strength, good dorsiflexion and plantar flexion strength, good range in the right knee. Normal sensation to light touch, pinprick, cold temperature, downgoing toes, symmetric reflex. Unable to stand or ambulate her at this time no assistive device, but the therapist is going to be ambulating her. OVERALL IMPRESSION: 1. Minimal deficits mobility, activities of daily living, multifactorial. 2. Left more than right knee pain. 3. Underlying degenerative joint disease, possible loose bodies, hemarthrosis. 4. Recent right total hip replacement. 5. Diffuse osteoarthritis including the hands, knees. 6. Recent hospitalization. 7. Atrial fibrillation, status post supratherapeutic international normalized ratio, currently slightly subtherapeutic. 8. Gastroesophageal reflux disease. 9. Hyperlipidemia. 10. Diverticulosis. 11. Possible chronic obstructive pulmonary disease, although the patient does not believe she has chronic obstructive pulmonary disease. PLANS AND SUGGESTIONS: 1. Continue physical therapy at the bedside to include bed mobility, transfers , gait training, strengthening, reconditioning. 2. Out of bed to chair. 3. Monitor INR closely. 4. Continue ice to the knees. 5. Pain medication. 6. Patient is going to try to get to the bathroom to move her bowels, but consider bowel regimen such as Colace and Senna if she is not successful. 7. Consider short-term rehabilitation in a alf facility if she is unable to take care of herself at home. Thank you very much for this referral. BAKARI ADDISON M.D. [id number] MTDD
[2018-01-28] MEDS: WARFARIN NA 5 MG TABLET (UD) PO SCH (17:25)
[2018-01-28] MEDS: SENNOSIDES 8.6MG TABLET (FP) PO SCH (21:09)
[2018-01-28] MEDS: traMADol HCL 50 MG TABLET PO PRN (21:09)
[2018-01-29 08:37] LABS: INR 1.83 (0.83-1.09); PROTHROMBIN TIME (PATIENT) 21.7 SEC (9.7-13.0)
[2018-01-29] MEDS: AMIODARONE HCL 200 MG TABLET (FP) PO SCH (10:22)
[2018-01-29] MEDS: MEGESTROL ACETATE 400 MG/10 ML UNIT DOSE CUP PO SCH (10:22)
[2018-01-29] MEDS: traMADol HCL 50 MG TABLET PO PRN (10:30)
--- NOTE | 2018-01-29 12:44 | PN ---
Progress Note, Physician - Current Medication List Current Medications: Active Medications Amiodarone HCl (Cordarone -) 200 mg PO DAILY [facility] Last Admin: 01/29/18 10:22 Dose: 200 mg Megestrol Acetate (Megace Oral Suspension -) 400 mg PO DAILY [facility] Last Admin: 01/29/18 10:22 Dose: 400 mg Senna (Senna -) 1 tab PO HS [facility] Last Admin: 01/28/18 21:09 Dose: 1 tab Tramadol HCl (Ultram -) 50 mg PO TID PRN PRN Reason: PAIN LEVEL 7 - 10 Last Admin: 01/29/18 10:30 Dose: 50 mg Warfarin Sodium (Coumadin -) 5 mg PO DAILY@1800 [facility] Last Admin: 01/28/18 17:25 Dose: 5 mg - Objective Vital Signs: Vital Signs Temperature 98.1 F 01/29/18 06:00 Pulse Rate 78 01/29/18 06:00 Respiratory Rate 20 01/29/18 06:00 Blood Pressure 99/56 L 01/29/18 06:00 O2 Sat by Pulse Oximetry (%) 96 01/28/18 21:00 Cardiovascular: Yes: S1, S2 Respiratory: Yes: Regular, CTA Bilaterally Gastrointestinal: Yes: Normal Bowel Sounds, Soft Musculoskeletal: Yes: Joint Swelling Labs: CBC, BMP 01/25/18 06:15 01/25/18 06:15 INR, PTT INR 1.83 (0.83-1.09) H 01/29/18 06:15 Assessment/Plan - Problems (1) Hemarthrosis of knee, left Assessment/Plan: ct scan w/o contrast of left knee ortho consult dr clemente noted nigele surendra pt Code(s): M25.062 - HEMARTHROSIS, LEFT KNEE (2) Abnormal INR Assessment/Plan: monitor inr--1.95 Code(s): R79.1 - ABNORMAL COAGULATION PROFILE (3) Afib Assessment/Plan: cardiology dr delores bhattronmariela Code(s): I48.91 - UNSPECIFIED ATRIAL FIBRILLATION
[2018-01-29] MEDS: WARFARIN NA 5 MG TABLET (UD) PO SCH (18:40)
[2018-01-29] MEDS: SENNOSIDES 8.6MG TABLET (FP) PO SCH (21:51)
[2018-01-29] MEDS ORDERED: traMADol HCL 50 MG TABLET PO PRN (22:00)
--- NOTE | 2018-01-30 00:06 | PN ---
Progress Note (short form) - Note Progress Note: Patient seen and examined Feels better AFVSs Cor: RSR, No murmurs, No gallops Lungs: Clear to P&A Abd: Soft, Normal bowel sounds, No organomegaly Ext:No significant edema Labs/Meds reviewed A/P 87 y/o with recent rt. hip replacement in 10/2017, on coumdin fo afib presents woth spontaneous b/l knee hemarthrosis, INR of 3. no prior h/o bleeding diathesis on coumadin which she has been on for years. coumadin held---hemarthrosis improving resumed coumadin-- INR 1.87 will follow
--- NOTE | 2018-01-30 08:46 | PN ---
Progress Note, Physician - Current Medication List Current Medications: Active Medications Amiodarone HCl (Cordarone -) 200 mg PO DAILY [facility] Last Admin: 01/29/18 10:22 Dose: 200 mg Megestrol Acetate (Megace Oral Suspension -) 400 mg PO DAILY [facility] Last Admin: 01/29/18 10:22 Dose: 400 mg Senna (Senna -) 1 tab PO HS [facility] Last Admin: 01/29/18 21:51 Dose: 1 tab Warfarin Sodium (Coumadin -) 5 mg PO DAILY@1800 [facility] Last Admin: 01/29/18 18:40 Dose: 5 mg - Objective Vital Signs: Vital Signs Temperature 98.3 F 01/30/18 06:34 Pulse Rate 74 01/30/18 06:34 Respiratory Rate 18 01/30/18 06:34 Blood Pressure 100/48 L 01/30/18 06:34 O2 Sat by Pulse Oximetry (%) 97 01/29/18 21:00 Cardiovascular: Yes: S1, S2 Respiratory: Yes: Regular, CTA Bilaterally Gastrointestinal: Yes: Normal Bowel Sounds, Soft Musculoskeletal: Yes: Joint Swelling (less) Labs: CBC, BMP 01/25/18 06:15 01/25/18 06:15 INR, PTT INR 1.83 (0.83-1.09) H 01/29/18 06:15 Assessment/Plan - Problems (1) Hemarthrosis of knee, left Assessment/Plan: ct scan w/o contrast of left knee ortho consult dr clemente noted resume couamdin pt Code(s): M25.062 - HEMARTHROSIS, LEFT KNEE (2) Abnormal INR Assessment/Plan: monitor inr--1.95 Code(s): R79.1 - ABNORMAL COAGULATION PROFILE (3) Afib Assessment/Plan: cardiology dr delores bhattrone Code(s): I48.91 - UNSPECIFIED ATRIAL FIBRILLATION dc planning--snf
[2018-01-30 09:00] LABS: INR 1.87 (0.83-1.09); PROTHROMBIN TIME (PATIENT) 22.2 SEC (9.7-13.0)
[2018-01-30] MEDS: AMIODARONE HCL 200 MG TABLET (FP) PO SCH (10:10)
[2018-01-30] MEDS: MEGESTROL ACETATE 400 MG/10 ML UNIT DOSE CUP PO SCH (10:10)
[2018-01-30] MEDS ORDERED: WARFARIN NA 3 MG TABLET PO SCH (18:00)
[2018-01-30] MEDS: SENNOSIDES 8.6MG TABLET (FP) PO SCH (21:31)
[2018-01-31 07:25] LABS: BASO % 0.7 % (0-2.0); EOS % 0.8 % (0-4.5); HEMATOCRIT 33.2 % (32.4-45.2); HEMOGLOBIN 11.7 GM/dL (10.7-15.3); MCH 30.5 pg (25.7-33.7); MCHC 35.2 g/dl (32.0-36.0); MEAN CELL VOLUME 86.7 fl (80-96); MONO % 10.9 % (3.8-10.2); NEUT % 45.6 % (42.8-82.8); PLATELET COUNT 438 K/MM3 (134-434); RBC 3.83 M/mm3 (3.60-5.2); RDW 15.1 % (11.6-15.6); WHITE BLOOD COUNT 5.4 K/mm3 (4.0-10.0)
[2018-01-31 07:36] LABS: INR 1.68 (0.83-1.09); PROTHROMBIN TIME (PATIENT) 19.9 SEC (9.7-13.0)
[2018-01-31 08:36] LABS: ALBUMIN 2.5 g/dl (3.4-5.0); ALK PHOS 91 U/L (45-117); ANION GAP 8 MMOL/L (8-16); BILIRUBIN,TOTAL 0.5 mg/dL (0.2-1); BLOOD UREA NITROGEN 13 mg/dL (7-18); CALCIUM 8.8 mg/dL (8.5-10.1); CHLORIDE 109 mmol/L (98-107); CO2 23 mmol/L (21-32); CREATININE 0.6 mg/dL (0.55-1.3); GLUCOSE,RANDOM 79 mg/dL (74-106); POTASSIUM 4.3 mmol/L (3.5-5.1); SGOT/AST 16 U/L (15-37); SGPT/ALT 13 U/L (13-61); SODIUM 140 mmol/L (136-145)
[2018-01-31] MEDS: MEGESTROL ACETATE 400 MG/10 ML UNIT DOSE CUP PO SCH (09:25)
[2018-01-31] MEDS: AMIODARONE HCL 200 MG TABLET (FP) PO SCH (09:25)
--- NOTE | 2018-01-31 09:40 | DS ---
Physical Examination Vital Signs: Vital Signs Temperature 98.6 F 01/31/18 05:00 Pulse Rate 80 01/31/18 05:00 Respiratory Rate 18 01/31/18 05:00 Blood Pressure 116/56 L 01/31/18 05:00 O2 Sat by Pulse Oximetry (%) 99 01/30/18 21:00 Constitutional: Yes: Mild Distress Eyes: Yes: WNL HENT: Yes: WNL Neck: Yes: WNL Cardiovascular: Yes: WNL, Pulse Irregular Respiratory: Yes: WNL Gastrointestinal: Yes: WNL Renal/: Yes: WNL Musculoskeletal: Yes: Muscle Weakness Extremities: Yes: Other Edema: No Integumentary: Yes: WNL Wound/Incision: Yes: Clean/Dry Neurological: Yes: Other ...Motor Strength: LLE, RLE Psychiatric: Yes: WNL Labs: CBC, BMP 01/31/18 06:30 01/31/18 06:30 Discharge Summary Reason For Visit: HEMARTHROSIS OF LEFT KNEE Current Active Problems Hemarthrosis of knee, left (Acute) AFIB Procedures: Principal: XRAYS/LABS Hospital Course: ADMITTED FOR HEMARTHOSIS B/L KNEES, TREATED WITH BEDREST, PAIN CONTROL ORTHOPEDIC F/U Condition: Stable - Instructions Diet, Activity, Other Instructions: LOW SALT CHECK INR Referrals: Tisha Urban MD [Primary Care Provider] - Disposition: INTERMEDIATE FACILITY - Home Medications Comprehensive Discharge Medication List: Ambulatory Orders Calcium Carbonate/Vitamin D3 [Calcium 600-Vit D3 800 Caplet] 1 each PO DAILY 10/23 Ferrous Fumarate/Ascorbic Acid [Nasima-Sequels 65-25 mg Caplet] 1 each PO DAILY 10/13/17 Sennosides [Senokot] 8.6 mg PO HS 10/13/17 Vit C/Vit E AC/Lut/Copper/Zinc [Preservision Lutein Softgel] 1 tablet PO DAILY 10/13/17 Acetaminophen [Tylenol .Regular Strength -] 650 mg PO Q6H PRN tablet 12/16/17 Sodium Chloride Nasal [place] [[place] Nasal [place] -] 2 spray NS BID PRN spray 12/16/17 Amiodarone HCl [Cordarone -] 200 mg PO DAILY 01/24/18 Coumadin 7 mg PO DAILY 01/24/18
[2018-01-31] MEDS ORDERED: ENOXAPARIN NA (PORCINE) 60 MG/0.6 ML DISP.SYRIN SQ SCH (10:00)
--- NOTE | 2018-01-31 10:19 | PN ---
Progress Note, Physician - Current Medication List Current Medications: Active Medications Amiodarone HCl (Cordarone -) 200 mg PO DAILY [facility] Last Admin: 01/31/18 09:25 Dose: 200 mg Enoxaparin Sodium (Lovenox -) 50 mg SQ BID [facility] Megestrol Acetate (Megace Oral Suspension -) 400 mg PO DAILY [facility] Last Admin: 01/31/18 09:25 Dose: 400 mg Senna (Senna -) 1 tab PO HS [facility] Last Admin: 01/30/18 21:31 Dose: 1 tab Warfarin Sodium (Coumadin -) 6 mg PO DAILY@1800 [facility] Last Admin: 01/30/18 17:40 Dose: 6 mg - Objective Vital Signs: Vital Signs Temperature 98.6 F 01/31/18 05:00 Pulse Rate 80 01/31/18 05:00 Respiratory Rate 18 01/31/18 05:00 Blood Pressure 116/56 L 01/31/18 05:00 O2 Sat by Pulse Oximetry (%) 99 01/30/18 21:00 Labs: CBC, BMP 01/31/18 06:30 01/31/18 06:30 INR, PTT INR 1.68 (0.83-1.09) H 01/31/18 06:30 Assessment/Plan CXR: clear lungs echo 04/2017: nl lv/rv. sev lae. mild alexandro. mod ecc mr. mild-mod tr. estimated rvsp 43 echo 07/2016: nl lv/rv. 1+ lae. 1+ mr. mild-mod tr. mod pr. nl rvsp. echo 12/2017 nl lv/rv, LA mod dilated, mod MR, mod to sev TR, PASP >46 mmHg, mild AR MIBI 07/2016: no isch ST changes. normal perfusion, nl EF a/p: 87 yo f hx smoking with a history of A. fib on Coumadin/amiodarone, htn, mild mr, gerd, diverticulosis who presents with bilateral knee pain knee pain, spontaneous b/l knee hemarthrosis - seen by ortho and heme, holding coumadin for now paroxysmal atrial fibrillation - s/p ablation 05/2017 with recurrence of afib and rvr with palps recently. BP too low to tolerate bb/ccb (already tried). pt on amio per EP - continue amiodarone, asymptomatic since starting - coumadin held due to hemarthrosis--resume once cleared by ortho - outpt f/u with our office MV and TV regurgitation: - eccentric MR, reported as moderate on current echo, preserved LF fxn. mild pulm HTN noted, stable on echo 12/2017 - no clinical CHF here + tobacco - tobacco cessation counselled, CV benefits reviewed
--- NOTE | 2018-01-31 10:35 | PN ---
Progress Note, Physician Chief Complaint: knee pain/swelling History of Present Illness: knees much better, more mobile no palpitations, sob/orthponea, cp - Current Medication List Current Medications: Active Medications Amiodarone HCl (Cordarone -) 200 mg PO DAILY [facility] Last Admin: 01/31/18 09:25 Dose: 200 mg Enoxaparin Sodium (Lovenox -) 50 mg SQ BID [facility] Last Admin: 01/31/18 10:24 Dose: 50 mg Megestrol Acetate (Megace Oral Suspension -) 400 mg PO DAILY [facility] Last Admin: 01/31/18 09:25 Dose: 400 mg Senna (Senna -) 1 tab PO HS [facility] Last Admin: 01/30/18 21:31 Dose: 1 tab Warfarin Sodium (Coumadin -) 6 mg PO DAILY@1800 [facility] Last Admin: 01/30/18 17:40 Dose: 6 mg - Objective Vital Signs: Vital Signs Temperature 98.6 F 01/31/18 05:00 Pulse Rate 80 01/31/18 05:00 Respiratory Rate 18 01/31/18 05:00 Blood Pressure 116/56 L 01/31/18 05:00 O2 Sat by Pulse Oximetry (%) 99 01/30/18 21:00 Constitutional: Yes: Well Nourished, No Distress, Calm Cardiovascular: Yes: Regular Rate and Rhythm, S1, S2. No: Gallop, Murmur Respiratory: Yes: Regular, CTA Bilaterally. No: Accessory Muscle Use, Rales, Wheezes Extremities: No: Cold Edema: No Neurological: Yes: Alert, Oriented Psychiatric: No: Agitated Labs: CBC, BMP 01/31/18 06:30 01/31/18 06:30 INR, PTT INR 1.68 (0.83-1.09) H 01/31/18 06:30 Assessment/Plan CXR: clear lungs echo 04/2017: nl lv/rv. sev lae. mild alexandro. mod ecc mr. mild-mod tr. estimated rvsp 43 echo 07/2016: nl lv/rv. 1+ lae. 1+ mr. mild-mod tr. mod pr. nl rvsp. echo 12/2017 nl lv/rv, LA mod dilated, mod MR, mod to sev TR, PASP >46 mmHg, mild AR MIBI 07/2016: no isch ST changes. normal perfusion, nl EF a/p: 87 yo f hx smoking with a history of A. fib on Coumadin/amiodarone, htn, mild mr, gerd, diverticulosis who presents with bilateral knee pain knee pain, spontaneous b/l knee hemarthrosis - treated by ortho here, resolved paroxysmal atrial fibrillation - s/p ablation 05/2017 with recurrence of afib and rvr with palps recently. BP too low to tolerate bb/ccb (already tried). pt on amio per EP - continue amiodarone, asymptomatic since starting - coumadin held due to hemarthrosis--now resumed - if spontaneous bleeding recurs, will have to consider trial of NOAC or Watchman LA appendage closure--pt informed of plan, and to f/u with dr david MV and TV regurgitation: - eccentric MR, reported as moderate on current echo, preserved LF fxn. mild pulm HTN noted, stable on echo 12/2017 - no clinical CHF here + tobacco - tobacco cessation counselled, CV benefits reviewed
[2018-01-31 11:54] VITALS: BP 110/54; PULSE 87; TEMP 98.2
== END 2018-01-31 15:56 | DRG 813 ==
LOC: JER 09:40 → JERBED 13:11 → J8W 15:58
PROVIDERS: ADMIT Family Medicine; ATTEND Family Medicine
DX: D68.32 Hemorrhagic disorder due to extrinsic circulating anticoagulants (principal); M25.062 Hemarthrosis, left knee; I48.0 Paroxysmal atrial fibrillation; Z79.01 Long term (current) use of anticoagulants; J44.9 Chronic obstructive pulmonary disease, unspecified; I10 Essential (primary) hypertension; E78.5 Hyperlipidemia, unspecified; M17.0 Bilateral primary osteoarthritis of knee; F17.210 Nicotine dependence, cigarettes, uncomplicated; I34.0 Nonrheumatic mitral (valve) insufficiency; K21.9 Gastro-esophageal reflux disease without esophagitis; Z96.661 Presence of right artificial ankle joint
CPT/HCPCS: 36415; 73560-TC-LT-FY; 73560-TC-RT-FY; 73700-TC-RT; 80048; 80053; 83735; 84100; 85025; 85610; 85651; 85730; 86140; 97116-GP; 99283-25

== ENCOUNTER 2018-08-11 17:56 | Inpatient (IN) | payer OTHER, MEDICARE ==
--- NOTE | 2018-08-11 18:19 | PDOC ---
History of Present Illness - General Chief Complaint: Back Pain Stated Complaint: EMPRESS Time Seen by Provider: 08/11/18 18:19 History Source: Patient Exam Limitations: No Limitations Past History - Travel Traveled outside of the country in the last 30 days: No Close contact w/someone who was outside of country & ill: No - Past Medical History Allergies/Adverse Reactions: Allergies Allergy/AdvReac Type Severity Reaction Status Date / Time No Known Drug Allergies Allergy Verified 08/11/18 18:26 Home Medications: Ambulatory Orders Amiodarone HCl [Cordarone -] 200 mg PO DAILY 08/11/18 Warfarin Sodium [Coumadin] 6.5 mg PO DAILY 08/11/18 Anemia: No Asthma: No Cancer: No Cardiac Disorders: Yes (A-Fib, mitral regurgitation) CVA: No COPD: No CHF: No Dementia: No Diabetes: No GI Disorders: Yes (GERD) Disorders: No HTN: No Hypercholesterolemia: No Liver Disease: No Seizures: No Thyroid Disease: No - Surgical History Abdominal Surgery: Yes Appendectomy: Yes (1949's) Cardiac Surgery: Yes (ablation) Cholecystectomy: No Lung Surgery: No Neurologic Surgery: No Orthopedic Surgery: Yes (Hip replacement) - Immunization History Immunization Up to Date: Yes - Suicide/Smoking/Psychosocial Hx Smoking Status: Yes Smoking History: Never smoked Have you smoked in the past 12 months: Yes Number of Cigarettes Smoked Daily: 10 'Breaking Loose' booklet given: 12/21/17 Hx Alcohol Use: No Drug/Substance Use Hx: No Substance Use Type: None Hx Substance Use Treatment: No Review of Systems - Review of Systems Able to Perform ROS?: Yes Is the patient limited Armenian proficient: No Constitutional: Yes: Weight Stable. No: Chills, Diaphoresis, Fever, Loss of Appetite, Malaise, Night Sweats, Weakness HEENTM: No: Blurred Vision, Double Vision, Nose Congestion, Throat Pain, Throat Swelling, Difficulty Swallowing Respiratory: No: Cough, Orthopnea, Shortness of Breath Cardiac (ROS): No: Chest Pain, Edema, Irregular Heart Rate, Lightheadedness, Palpitations, Syncope, Chest Tightness ABD/GI: No: Constipated, Diarrhea, Nausea, Poor Appetite, Poor Fluid Intake, Vomiting : No: Burning, Dysuria, Pain, Urgency Musculoskeletal: Yes: See HPI, Back Pain, Other (R back pain, L foot pain). No : Joint Pain, Joint Swelling, Muscle Pain, Muscle Weakness, Neck Pain, Joint Stiffness Integumentary: Yes: Erythema (mild erythema over L midfoot). No: Rash ED Treatment Course - LABORATORY CBC & Chemistry Diagram: 08/11/18 19:29 08/11/18 19:29 Medical Decision Making - Medical Decision Making Pt was seen at bedside, also will be seen by attending Dr. Garcia. Pt presenting with complaints of L-sided back pain x6 days, and acute onset of R foot pain. Pt states she saw her PCP 4 days ago, who ordered outpatient x-rays and lidocaine patches, which have been providing minimal relief. Considering [vs vs] Ordered work-up including CBC, CMP, Mg, Phos, ESR, CRP, troponin, UA, urine culture, chest x-ray. Provided 650 mg PO tylenol and 50 mg PO tramadol for improvement of pain. Will continue to reassess pt and monitor for symptomatic improvement. ECG: NSR, prolonged QT (HR 65, HI 160, QRS 86, QTc 486). No TWIs or significant ST segment changes. No significant changes from prior ECG. Paging hospitalist team for admission. 08/11/18 22:37 *DC/Admit/Observation/Transfer Diagnosis at time of Disposition: Elevated troponin, Decreased ambulation status, Foot pain, left UTI (urinary tract infection) Qualifiers: Urinary tract infection type: site unspecified Hematuria presence: with hematuria Qualified Code(s): N39.0 - Urinary tract infection, site not specified ; R31.9 - Hematuria, unspecified Right-sided back pain Qualifiers: Back pain location: back pain in unspecified location Chronicity: acute Qualified Code(s): M54.9 - Dorsalgia, unspecified - Discharge Dispostion Condition at time of disposition: Stable Decision to Admit order: Yes - Referrals - Patient Instructions - Post Discharge Activity
[2018-08-11] MEDS ORDERED: ACETAMINOPHEN 325 MG TABLET (FP) PO ONE (19:16)
[2018-08-11] MEDS ORDERED: traMADol HCL 50 MG TABLET PO ONE (19:25)
[2018-08-11] MEDS ORDERED: traMADol HCL 50 MG TABLET ONE (19:41)
[2018-08-11] MEDS ORDERED: ACETAMINOPHEN 325 MG TABLET (FP) ONE (19:41)
[2018-08-11 19:51] LABS: BASO % 0.5 % (0-2.0); EOS % 0.9 % (0-4.5); HEMATOCRIT 43.1 % (32.4-45.2); HEMOGLOBIN 14.3 GM/dL (10.7-15.3); LYMPH % 42.9 % (8-40); MCH 30.7 pg (25.7-33.7); MCHC 33.1 g/dl (32.0-36.0); MEAN CELL VOLUME 92.8 fl (80-96); MONO % 8.6 % (3.8-10.2); NEUT % 47.1 % (42.8-82.8); PLATELET COUNT 238 K/MM3 (134-434); RBC 4.64 M/mm3 (3.60-5.2); RDW 14.4 % (11.6-15.6); WHITE BLOOD COUNT 6.5 K/mm3 (4.0-10.0)
[2018-08-11 20:18] LABS: BILIRUBIN,TOTAL 0.8 mg/dL (0.2-1); CALCIUM 9.2 mg/dL (8.5-10.1); CREATININE 0.9 mg/dL (0.55-1.3); MAGNESIUM 2.2 mg/dL (1.8-2.4); POTASSIUM 4.1 mmol/L (3.5-5.1); TOT PROT 7.8 g/dl (6.4-8.2)
--- NOTE | 2018-08-11 21:08 | PDOC ---
Documentation entered by Juan C Britton SCRIBE, acting as scribe for David Garcia MD. David Garcia MD: This documentation has been prepared by the Reba mejia Elijah, SCRIBE, under my direction and personally reviewed by me in its entirety. I confirm that the documentation accurately reflects all work, treatment, procedures, and medical decision making performed by me. Attending Attestation - Resident Resident Name: Fozia Kurtz - ED Attending Attestation I have performed the following: I have examined & evaluated the patient, The case was reviewed & discussed with the resident, I agree w/resident's findings & plan - HPI HPI: 08/11/18 20:42 Patient is a 88 year old female with a significant past medical history of AFIB , GERD, and COPD, who presents to the ED with lower back pain for 5 days and left foot pain since earlier today. The patient reports intermittent right sided mid back pain that comes and goes every minute and lasts for approximately one minute. The patient states that the back pain has progressively worsened and developed into a waxing and waning pain 1 day ago. The patient reports that the pain has kept her up all day and night. The patient also reports a sudden onset of left foot pain while trying to stand up from her chair. Patient was afraid that she was going to fall and came into the ED. Patient saw her PCP three days ago and received Lidocaine patches and a X- Ray that came back normal. Denies trauma or injury. Denied fever or chills. Denies changes in Urinary Output. Denies nausea or vomiting. Denies Shortness of Breath. Family History: Mother had bone cancer - Physicial Exam PE: 08/11/18 20:42 GENERAL: The patient is awake, alert, and fully oriented, in no acute distress. HEAD: Normal with no signs of trauma. EYES: Pupils equal, round and reactive to light, extraocular movements intact, sclera anicteric, conjunctiva clear with no pallor. ENT: Ears normal, nares patent, oropharynx clear without exudates. Moist mucous membranes. NECK: Normal range of motion, supple without lymphadenopathy, JVD, or masses. LUNGS: Breath sounds equal, clear to auscultation bilaterally. No wheeze/ crackles. HEART: Regular rate and rhythm, normal S1 and S2 without murmur or rub. ABDOMEN: Soft/nontender/nondistended. BS wnl. No guarding or rebound. No palpable masses. No hepatosplenomegaly. BACK: +Subtle scoliosis. No Midline Tenderness or Stepoff. No rash. EXTREMITIES: +Non-Blanching Petechiae along lateral aspect of left lower leg. No bruising, or swelling or tenderness in the left lower leg. Slight dorsal swelling in left foot reproducible in the dorsal midfoot. No bony deformity or bony tenderness. No Malleolar tenderness. NEUROLOGICAL: Cranial nerves II through XII grossly intact. Normal speech, normal gait. PSYCH: Normal mood, normal affect. SKIN: Warm, Dry, normal turgor, no rashes or lesions noted. - Medical Decision Making 08/11/18 20:09 88y/o F p/w two separate complaints: atraumatic R mid back pain for 4 days, initially intermittent occurring every few minutes and lasting a couple of seconds, not associated with any cardiopulmonary//GI complaints. no rash, not positional. Saw PCP, TLS spine xrays without acute abnormality, abd u/s performed but no report, prescribed lidocaine patch without relief. Over last day, that pain is now constant, but otherwise unchanged. The primary reason she presents to the ED is for acute Left foot pain tonight. Pt was seated in chair, upon standing developed sharp L foot pain that made her fall back into her chair. Discomfort since then but improved severity, no injury , no associated motor/sensory deficit. no h/o gout/arthritis. vs as noted R mid back without rash/bruising/swelling/reproducible ttp. ctab, heart regular abd soft, no cvat L foot with reproducible discomfort to palpation along dorsal midfoot, no bruising, slight sts. pain with toe ROM, no ankle ttp or joint swelling. no cellulitis, likely petechial rash to lateral L lower leg. 88y/o F with 4d nonspecific R mid back pain, ? musculoskeletal but r/o pulm/ renal etiology. xrays already negative as outpt, not consistent with cardiac etiology. L foot pain ? strain, r/o fracture. no injury, no evidence of vascular /neuro/infectious process. labs, ekg, cxr pain control L foot xray reassess 08/11/18 22:29 no leukocytosis, normal lytes, baseline troponin, +uti treated with abx. foot xray without acute abnormality, crp slightly elevated. pt still unable to bear weight/ambulate despite tylenol and tramadol, lives alone. Will need pain control, further evaluation of etiology, PT to care for self. Heart Score/ECG Review #1 ECG reviewed & interpreted by me at: 19:18 General ECG Interpretation: Sinus Rhythm, Normal Rate (65), Normal Intervals ( qtc 486), No acute ischemic changes
[2018-08-11] MEDS ORDERED: LIDOCAINE 5% TOPICAL PATCH TP ONE (21:21)
[2018-08-11 21:36] LABS: EPI CELLS 0.6 /HPF (0-5/HPF); HYALINE CASTS 4 /lpf (0-8); PH,URINE 5.5 (5.0-8.0); URINE APPEARANCE CLEAR; URINE BILIRUBIN NEGATIVE (NEGATIVE); URINE COLOR YELLOW; URINE GLUCOSE (UA) NEGATIVE (NEGATIVE); URINE KETONE NEGATIVE (NEGATIVE); URINE LEUK ESTERASE 3+ (NEGATIVE); URINE NITRITE NEGATIVE (NEGATIVE); URINE PROTEIN NEGATIVE (NEGATIVE); URINE RBC 2 /hpf (0-4); URINE UROBILINOGEN 0.2 mg/dL (0.2-1.0); URINE WBC 40 /hpf (0-5)
[2018-08-11] MEDS ORDERED: LIDOCAINE PATCH REMOVAL MC SCH (22:00)
[2018-08-11] MEDS ORDERED: CEFTRIAXONE 1,000 MG in DEXTROSE 5%-WATER - 50 ML IVPB ONE (22:12)
[2018-08-11] MEDS ORDERED: CEFTRIAXONE 1 GM/50 ML BAG ONE (22:45)
[2018-08-11] MEDS: LIDOCAINE PATCH REMOVAL MC SCH (23:00)
[2018-08-11] MEDS ORDERED: LIDOCAINE 5% TOPICAL PATCH ONE (23:56)
--- NOTE | 2018-08-12 | HP ---
Admitting History and Physical - Primary Care Physician PCP: Tisha Urban - Admission Chief Complaint: Back Pain & foot pain History of Present Illness: Pt is an 88 yo F with PMhx of chronic atrial fibrillation on Coumadin 6.5mg daily & amiodarone 200mg daily, which are chronic medications for her, HTN, mild Mitral regurg, diverticulosis, b/l osteoarthritis of the knees previously managed w/ intraarticular injections w/ prior hemarthrosis in 2018 & is s/p hip replacement with hx of smoking who presented to ED with acute onset of L dorsal foot pain today which has limited her ambulation & weight bearing. Pt initially reports previously this week ~ 5 days ago feeling some central to L sided mid back pain and saw her PCP who completed imaging w/ Xrays not showing any bony lesions/abnormalities and pt was advised topical lidocaine w/o significant relief. She awoke this morning w/ a aching pain on dorsal asect of L foot that is worse w/ dorsiflexion of toes and weight bearing w/ pain intensifying to the point she cannot walk. Pt otherwise dneies any other joint pains, with no systemic fevers, chills, rash, fatigue, or areas of bruising/ bleeding or swelling. She denies any travel or sick contact exposure w/ no recent med changes. In ED she was found to be afebrile and normotensive, rate controlled and in regular mentation state and was given tylenol, tramadol which alleviated back pain but not foot pain. She had xray of foot without any noted bony abnormalities & LE doppler which ruled out DVT. History Source: Patient - Past Medical History Cardiovascular: Yes: AFIB, HTN, Hyperlipdemia Gastrointestinal: Yes: GERD - Past Surgical History Past Surgical History: Yes: Joint Replacement - Smoking History Smoking history: Former smoker Have you smoked in the past 12 months: No Aproximately how many cigarettes per day: 10 - Alcohol/Substance Use Hx Alcohol Use: No - Social History ADL: Independent History of Recent Travel: No Home Medications - Allergies Allergies/Adverse Reactions: Allergies Allergy/AdvReac Type Severity Reaction Status Date / Time No Known Drug Allergies Allergy Verified 08/11/18 18:26 - Home Medications Home Medications: Ambulatory Orders Amiodarone HCl [Cordarone -] 200 mg PO DAILY 08/11/18 Warfarin Sodium [Coumadin] 6.5 mg PO DAILY 08/11/18 Family Disease History - Family Disease History Family History: Unremarkable Review of Systems - Review of Systems Constitutional: reports: No Symptoms HENT: reports: No Symptoms Cardiovascular: reports: No Symptoms Respiratory: reports: No Symptoms Gastrointestinal: reports: No Symptoms Genitourinary: reports: Frequency Musculoskeletal: reports: Back Pain, Joint Pain Integumentary: reports: No Symptoms Neurological: reports: No Symptoms Hematology/Lymphatic: reports: No Symptoms Physical Examination Vital Signs: Vital Signs Temperature 98.2 F 08/11/18 23:47 Pulse Rate 65 08/11/18 23:47 Respiratory Rate 20 08/11/18 23:47 Blood Pressure 120/57 L 08/11/18 23:47 O2 Sat by Pulse Oximetry (%) 95 08/11/18 23:47 Constitutional: Yes: Well Nourished, No Distress Eyes: Yes: Conjunctiva Clear, EOM Intact HENT: Yes: Atraumatic (Moist mucosal membraes), Normocephalic Neck: Yes: Supple, Trachea Midline Cardiovascular: Yes: Pulse Irregular (nrml s1 &S2 no rubs or murmurs) Respiratory: Yes: Regular (no rales, rhonchi or wheezing), CTA Bilaterally Gastrointestinal: Yes: Normal Bowel Sounds (nontender, non distended), Soft Renal/: Yes: WNL (no b/l CVA tenderness) Musculoskeletal: Yes: Back Pain (slight paraspinal tenderness, + pain on palpation of inner dorsum of L foot, pain w/ dorsiflexion, no palable step-offs , dislocations) Extremities: Yes: WNL (warm, well perfused, 2+ radial & DP pulses, slight pedal varicosities) Peripheral Pulses WNL: Yes Peripheral Pulses: Left Radial: 2+, Right Radial: 2+, Left Doralis Pedis: 2+, Right Dorsalis Pedis: 2+ Neurological: Yes: WNL (pt refused to bear weight after prior trial w/ ED staff) ...Motor Strength: WNL Labs: CBC, BMP 08/11/18 19:29 08/11/18 19:29 Imaging - Results Chest X-ray: Report Reviewed X-ray: Report Reviewed Ultrasound: Report Reviewed Problem List - Problems (1) Decreased ambulation status Assessment/Plan: Pt presently reports too much pain to tolerate weight bearing & ambulation PRN tylenol 650mg q6hrs for 1-5 pain w/ sparing use of tramadol PRN for pain intensity 6-10 lidocaine patch to area can be attempted encouraged ambulation & once able to tolerate would likely benefit from PT assessment to help evaluate gait & determine any assist device needs Code(s): Z74.09 - OTHER REDUCED MOBILITY (2) Foot pain, left Assessment/Plan: Pain relief as above XRay with no e/o bone fracture, lytic lesions Consider Podiatry evaluation in AM and possible MRI to eval for possible tendinopathy, muscle inflammation or occult hair line fractures though pt deneis traumatic event check uric acid to r/o atypical gout flare Code(s): M79.672 - PAIN IN LEFT FOOT (3) Right-sided back pain Assessment/Plan: Pain presently improved after administration of analgesics in ED, can c/w current regimen encouraged OOB to chair to avoid immobilization/stiffness PT assessment once able to tolerate weight bearing Lidocaine patch as need Code(s): M54.9 - DORSALGIA, UNSPECIFIED Qualifiers: Back pain location: back pain in unspecified location Chronicity: acute Qualified Code(s): M54.9 - Dorsalgia, unspecified (4) UTI (urinary tract infection) Assessment/Plan: Pt with UA suggestive of UTI f/up on UCx pt started on 1gm IV CTX, will continue daily until results of culture w/ sensitivity & specificity. 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
[2018-08-12] MEDS: traMADol HCL 50 MG TABLET PO PRN ×2 (03:51→21:13)
[2018-08-12 04:27] VITALS: BMI 22.7
[2018-08-12 07:42] LABS: INR 3.68 (0.83-1.09)
[2018-08-12 07:44] LABS: BASO % 0.6 % (0-2.0); EOS % 0.9 % (0-4.5); HEMOGLOBIN 13.5 GM/dL (10.7-15.3); LYMPH % 34.8 % (8-40); MCH 31.2 pg (25.7-33.7); MCHC 33.8 g/dl (32.0-36.0); MEAN CELL VOLUME 92.1 fl (80-96); MEAN PLT VOLUME 9.1 fl (7.5-11.1); MONO % 11.4 % (3.8-10.2); NEUT % 52.3 % (42.8-82.8); RBC 4.34 M/mm3 (3.60-5.2); RDW 14.3 % (11.6-15.6); WHITE BLOOD COUNT 5.8 K/mm3 (4.0-10.0)
[2018-08-12 07:55] LABS: ALBUMIN 3.7 g/dl (3.4-5.0); BILIRUBIN,TOTAL 1.1 mg/dL (0.2-1); CREATININE 0.8 mg/dL (0.55-1.3); MAGNESIUM 2.1 mg/dL (1.8-2.4); PHOSPHOROUS 4.1 mg/dL (2.5-4.9); POTASSIUM 4.3 mmol/L (3.5-5.1); TOT PROT 6.8 g/dl (6.4-8.2); URIC ACID 3.2 mg/dL (2.6-7.2)
--- NOTE | 2018-08-12 09:08 | CONSULT ---
Consult Consult Specialty:: Podiatry Reason for Consultation:: Pain and discoloration left foot a few days duration. No hx of trauma. Prior hx years ago was a stress fracture. - Past Medical History Cardio/Vascular: Yes: AFIB, HTN, Hyperlipdemia Gastrointestinal: Yes: GERD ...: No - Past Surgical History Past Surgical History: Yes: Joint Replacement - Alcohol/Substance Use Hx Alcohol Use: No - Smoking History Smoking history: Former smoker Have you smoked in the past 12 months: No Aproximately how many cigarettes per day: 10 - Social History Usual Living Arrangement: Alone ADL: Independent History of Recent Travel: No Home Medications - Allergies Allergies/Adverse Reactions: Allergies Allergy/AdvReac Type Severity Reaction Status Date / Time No Known Drug Allergies Allergy Verified 08/11/18 18:26 - Home Medications Home Medications: Ambulatory Orders Amiodarone HCl [Cordarone -] 200 mg PO DAILY 08/11/18 Warfarin Sodium [Coumadin] 6.5 mg PO DAILY 08/11/18 Physical Exam Vital Signs: Vital Signs Temperature 98.4 F 08/12/18 05:00 Pulse Rate 68 08/12/18 05:00 Respiratory Rate 16 08/12/18 05:00 Blood Pressure 130/58 L 08/12/18 05:00 O2 Sat by Pulse Oximetry (%) 95 08/12/18 01:00 Extremities: Yes: Other (+tender left foot, +erythema, -portal of entry, cellulitis?, gout?, +arthralgia) Labs: CBC, BMP 08/12/18 06:30 08/12/18 06:30 Assessment/Plan r/o gout r/o fracture r/o localized cellulitis INR elevated MRI to be done left foot. will follow. xray reviewed. warm compress to left foot.
[2018-08-12] MEDS ORDERED: cefTRIAXone SODIUM 1 GM VIAL ONE (09:15)
[2018-08-12] MEDS ORDERED: DEXTROSE 5%-WATER - 50 ML IVPB ONE (09:15)
[2018-08-12] MEDS: CHOLECALCIFEROL (VIT D3) 1,000 UNIT (25 MCG) TABLET PO SCH (09:32)
[2018-08-12] MEDS: AMIODARONE HCL 200 MG TABLET (FP) PO SCH (09:32)
[2018-08-12] MEDS: CEFTRIAXONE 1 GM in DEXTROSE 5%-WATER - 50 ML IVPB SCH (09:32)
[2018-08-12] MEDS: LIDOCAINE 5% TOPICAL PATCH TP SCH (09:32)
[2018-08-12 12:19] LABS: PLATELET COUNT 238 K/MM3 (134-434)
--- NOTE | 2018-08-12 12:21 | PN ---
Progress Note, Physician Chief Complaint: patient seen and examiend says she cannot weight bear on left foot - Current Medication List Current Medications: Active Medications Acetaminophen (Tylenol -) 650 mg PO Q6H PRN PRN Reason: PAIN LEVEL 1-5 Amiodarone HCl (Cordarone -) 200 mg PO DAILY [facility] Last Admin: 08/12/18 09:32 Dose: 200 mg Cholecalciferol (Vitamin D3 -) 1,000 unit PO DAILY [facility] Last Admin: 08/12/18 09:32 Dose: 1,000 unit Ceftriaxone Sodium 1 gm/ (Dextrose) 50 mls @ 100 mls/hr IVPB DAILY [facility]; Protocol Last Admin: 08/12/18 09:32 Dose: 100 mls/hr Lidocaine (Lidoderm Patch -) 1 patch TP DAILY [facility] Last Admin: 08/12/18 09:32 Dose: 1 patch Miscellaneous (Lidoderm Patch Removal) 1 each MC DAILY@2200 [facility] Last Admin: 08/11/18 23:00 Dose: 1 each Tramadol HCl (Ultram -) 50 mg PO Q8H PRN PRN Reason: PAIN LEVEL 6-10 Last Admin: 08/12/18 03:51 Dose: 50 mg Warfarin Sodium 2.5 mg/ (Warfarin Sodium 4 mg) 6.5 mg PO DAILY@1800 [facility] - Objective Vital Signs: Vital Signs Temperature 98.4 F 08/12/18 05:00 Pulse Rate 68 08/12/18 05:00 Respiratory Rate 16 08/12/18 05:00 Blood Pressure 130/58 L 08/12/18 05:00 O2 Sat by Pulse Oximetry (%) 95 08/12/18 01:00 Constitutional: Yes: Calm Cardiovascular: Yes: Regular Rate and Rhythm, S1, S2 Respiratory: Yes: CTA Bilaterally Gastrointestinal: Yes: Normal Bowel Sounds, Soft Extremities: Yes: Other (dorsum of left foot painful to touch erythematous) Neurological: Yes: Alert, Oriented Labs: CBC, BMP 08/12/18 06:30 08/12/18 06:30 INR, PTT INR 3.68 (0.83-1.09) H 08/12/18 06:30 Problem List - Problems (1) Abnormal INR Assessment/Plan: daily INR hold coumadin Code(s): R79.1 - ABNORMAL COAGULATION PROFILE (2) Decreased ambulation status Assessment/Plan: PT eval Code(s): Z74.09 - OTHER REDUCED MOBILITY (3) Foot pain, left Assessment/Plan: MRI of left foot podiary saw patient warm compress Code(s): M79.672 - PAIN IN LEFT FOOT (4) UTI (urinary tract infection) Assessment/Plan: iv abx fu cultures Code(s): N39.0 - URINARY TRACT INFECTION, SITE NOT SPECIFIED Qualifiers: Urinary tract infection type: site unspecified Hematuria presence: with hematuria Qualified Code(s): N39.0 - Urinary tract infection, site not specified; R31.9 - Hematuria, unspecified (5) Afib Assessment/Plan: amiodarone hold couamdin Code(s): I48.91 - UNSPECIFIED ATRIAL FIBRILLATION
--- NOTE | 2018-08-12 12:34 | EKG ---
Test Reason : Blood Pressure : / mmHG Vent. Rate : 065 BPM Atrial Rate : 065 BPM P-R Int : 160 ms QRS Dur : 086 ms QT Int : 468 ms P-R-T Axes : 070 037 068 degrees QTc Int : 486 ms NORMAL SINUS RHYTHM NONSPECIFIC T WAVE ABNORMALITY PROLONGED QT ABNORMAL ECG Confirmed by SARAH WAN MD ([id number]) on 08/12/2018 12:34:24 PM Referred By: Confirmed By:SARAH WAN MD
[2018-08-12] MEDS ORDERED: WARFARIN NA PO SCH (18:00)
[2018-08-12] MEDS ORDERED: WARFARIN NA 2 MG TABLET (UD) PO SCH (18:00)
[2018-08-12] MEDS: LIDOCAINE PATCH REMOVAL MC SCH (21:18)
[2018-08-13] MEDS: ACETAMINOPHEN 325 MG TABLET (FP) PO PRN (03:37)
--- NOTE | 2018-08-13 06:59 | PN ---
Progress Note (short form) - Note Progress Note: Pt seen resting comfortably. Complains of pain on standing front of leg and top of left foot. vss awaiting mri, unchanged skin dorsum left foot r/o radiculopathy stress fx? pseudogout awaiting mri. consult neurology. contain compress to left foot. will follow.
[2018-08-13] MEDS: traMADol HCL 50 MG TABLET PO PRN (07:52)
[2018-08-13 08:09] LABS: INR 2.64 (0.83-1.09); PROTHROMBIN TIME (PATIENT) 31.5 SEC (9.7-13.0)
--- NOTE | 2018-08-13 09:13 | PN ---
Progress Note, Physician Chief Complaint: UTI Foot pain History of Present Illness: NAD awaiting MRI LLE On IV abx - Current Medication List Current Medications: Active Medications Acetaminophen (Tylenol -) 650 mg PO Q6H PRN PRN Reason: PAIN LEVEL 1-5 Last Admin: 08/13/18 03:37 Dose: 650 mg Amiodarone HCl (Cordarone -) 200 mg PO DAILY [facility] Last Admin: 08/12/18 09:32 Dose: 200 mg Cholecalciferol (Vitamin D3 -) 1,000 unit PO DAILY [facility] Last Admin: 08/12/18 09:32 Dose: 1,000 unit Ceftriaxone Sodium 1 gm/ (Dextrose) 50 mls @ 100 mls/hr IVPB DAILY [facility]; Protocol Last Admin: 08/12/18 09:32 Dose: 100 mls/hr Lidocaine (Lidoderm Patch -) 1 patch TP DAILY [facility] Last Admin: 08/12/18 09:32 Dose: 1 patch Miscellaneous (Lidoderm Patch Removal) 1 each MC DAILY@2200 [facility] Last Admin: 08/12/18 21:18 Dose: 1 each Tramadol HCl (Ultram -) 50 mg PO Q8H PRN PRN Reason: PAIN LEVEL 6-10 Last Admin: 08/13/18 07:52 Dose: 50 mg - Objective Vital Signs: Vital Signs Temperature 98.8 F 08/13/18 05:45 Pulse Rate 65 08/13/18 05:45 Respiratory Rate 18 08/13/18 05:45 Blood Pressure 107/56 L 08/13/18 05:45 O2 Sat by Pulse Oximetry (%) 96 08/12/18 21:00 Constitutional: Yes: Well Nourished, No Distress, Calm Cardiovascular: Yes: Regular Rate and Rhythm Respiratory: Yes: Regular Gastrointestinal: Yes: WNL Genitourinary: Yes: WNL Musculoskeletal: Yes: Other (Left foot pain) Extremities: Yes: WNL Edema: No Peripheral Pulses WNL: Yes Neurological: Yes: Alert, Oriented Psychiatric: Yes: Alert, Oriented Labs: CBC, BMP 08/12/18 06:30 08/12/18 06:30 INR, PTT INR 2.64 (0.83-1.09) H 08/13/18 07:10 Assessment/Plan (1) Abnormal INR Assessment/Plan: -daily INR -coumadin was on hold due to elevated INR -Resume Coumadin at 2 mg po daily -adjust dosing as needed Code(s): R79.1 - ABNORMAL COAGULATION PROFILE (2) Decreased ambulation status Assessment/Plan: -PT eval Code(s): Z74.09 - OTHER REDUCED MOBILITY (3) Foot pain, left Assessment/Plan: -Awaiting MRI of left foot -Podiatry Consult warm compress Code(s): M79.672 - PAIN IN LEFT FOOT (4) UTI (urinary tract infection) Assessment/Plan: -IV abx -fu cultures -ID on board Code(s): N39.0 - URINARY TRACT INFECTION, SITE NOT SPECIFIED Qualifiers: Urinary tract infection type: site unspecified Hematuria presence: with hematuria Qualified Code(s): N39.0 - Urinary tract infection, site not specified; R31.9 - Hematuria, unspecified (5) Afib Assessment/Plan: amiodarone -Resume coumadin Code(s): I48.91 - UNSPECIFIED ATRIAL FIBRILLATION
[2018-08-13] MEDS ORDERED: cefTRIAXone SODIUM 1 GM VIAL ONE (09:23)
[2018-08-13] MEDS ORDERED: DEXTROSE 5%-WATER - 50 ML IVPB ONE (09:23)
[2018-08-13] MEDS: CEFTRIAXONE 1 GM in DEXTROSE 5%-WATER - 50 ML IVPB SCH (09:27)
[2018-08-13] MEDS: AMIODARONE HCL 200 MG TABLET (FP) PO SCH (09:33)
[2018-08-13] MEDS: CHOLECALCIFEROL (VIT D3) 1,000 UNIT (25 MCG) TABLET PO SCH (09:33)
[2018-08-13] MEDS: LIDOCAINE 5% TOPICAL PATCH TP SCH (09:34)
[2018-08-13] MEDS ORDERED: WARFARIN NA 2 MG TABLET (UD) PO SCH (18:00)
[2018-08-14 07:40] LABS: INR 1.64 (0.83-1.09); PROTHROMBIN TIME (PATIENT) 19.5 SEC (9.7-13.0)
--- NOTE | 2018-08-14 08:49 | PN ---
Progress Note, Physician Chief Complaint: UTI Foot pain History of Present Illness: NAD awaiting MRI LLE shows no osteomyelitis On IV abx - Current Medication List Current Medications: Active Medications Acetaminophen (Tylenol -) 650 mg PO Q6H PRN PRN Reason: PAIN LEVEL 1-5 Last Admin: 08/13/18 03:37 Dose: 650 mg Amiodarone HCl (Cordarone -) 200 mg PO DAILY [facility] Last Admin: 08/13/18 09:33 Dose: 200 mg Cholecalciferol (Vitamin D3 -) 1,000 unit PO DAILY [facility] Last Admin: 08/13/18 09:33 Dose: 1,000 unit Ceftriaxone Sodium 1 gm/ (Dextrose) 50 mls @ 100 mls/hr IVPB DAILY [facility]; Protocol Last Admin: 08/13/18 09:27 Dose: 100 mls/hr Lidocaine (Lidoderm Patch -) 1 patch TP DAILY [facility] Last Admin: 08/13/18 09:34 Dose: 1 patch Miscellaneous (Lidoderm Patch Removal) 1 each MC DAILY@2200 [facility] Last Admin: 08/12/18 21:18 Dose: 1 each Tramadol HCl (Ultram -) 50 mg PO Q8H PRN PRN Reason: PAIN LEVEL 6-10 Last Admin: 08/13/18 07:52 Dose: 50 mg Warfarin Sodium (Coumadin -) 2 mg PO DAILY@1800 [facility] Last Admin: 08/13/18 16:50 Dose: 2 mg - Objective Vital Signs: Vital Signs Temperature 98.5 F 08/14/18 08:09 Pulse Rate 73 08/14/18 08:09 Respiratory Rate 21 H 08/14/18 08:09 Blood Pressure 103/57 L 08/14/18 08:09 O2 Sat by Pulse Oximetry (%) 96 08/13/18 09:00 Constitutional: Yes: Well Nourished, No Distress, Calm Cardiovascular: Yes: Regular Rate and Rhythm Respiratory: Yes: Regular Gastrointestinal: Yes: WNL Genitourinary: Yes: WNL Musculoskeletal: Yes: Other (Left foot pain, mild erythema, warm to touch) Extremities: Yes: WNL, Erythema (Left dorsal foot) Edema: No Peripheral Pulses WNL: Yes Neurological: Yes: Alert, Oriented Psychiatric: Yes: Alert, Oriented Labs: CBC, BMP 08/12/18 06:30 08/12/18 06:30 INR, PTT INR 1.64 (0.83-1.09) H 08/14/18 06:50 Assessment/Plan (1) Abnormal INR Assessment/Plan: -daily INR -Increase Coumadin to 5 mg po daily -adjust dosing as needed Code(s): R79.1 - ABNORMAL COAGULATION PROFILE (2) Decreased ambulation status Assessment/Plan: -PT eval Code(s): Z74.09 - OTHER REDUCED MOBILITY (3) Foot pain, left Assessment/Plan: -MRI of left foot results-no osteomyelitis -Podiatry Consult -ICE pack Q2H Code(s): M79.672 - PAIN IN LEFT FOOT (4) UTI (urinary tract infection) Assessment/Plan: -IV abx -fu cultures -ID on board Code(s): N39.0 - URINARY TRACT INFECTION, SITE NOT SPECIFIED Qualifiers: Urinary tract infection type: site unspecified Hematuria presence: with hematuria Qualified Code(s): N39.0 - Urinary tract infection, site not specified; R31.9 - Hematuria, unspecified (5) Afib Assessment/Plan: -amiodarone -Resume coumadin Code(s): I48.91 - UNSPECIFIED ATRIAL FIBRILLATION
[2018-08-14] MEDS ORDERED: cefTRIAXone SODIUM 1 GM VIAL ONE (09:58)
[2018-08-14] MEDS ORDERED: DEXTROSE 5%-WATER - 50 ML IVPB ONE (09:59)
[2018-08-14] MEDS: CEFTRIAXONE 1 GM in DEXTROSE 5%-WATER - 50 ML IVPB SCH (10:04)
[2018-08-14] MEDS: AMIODARONE HCL 200 MG TABLET (FP) PO SCH (10:04)
[2018-08-14] MEDS: LIDOCAINE 5% TOPICAL PATCH TP SCH (10:04)
[2018-08-14] MEDS: CHOLECALCIFEROL (VIT D3) 1,000 UNIT (25 MCG) TABLET PO SCH (10:04)
--- NOTE | 2018-08-14 11:16 | CON.NEURO ---
Consult - Past Medical History Cardio/Vascular: Yes: AFIB, HTN, Hyperlipdemia Gastrointestinal: Yes: GERD ...: No - Past Surgical History Past Surgical History: Yes: Joint Replacement - Alcohol/Substance Use Hx Alcohol Use: No - Smoking History Smoking history: Former smoker Have you smoked in the past 12 months: No Aproximately how many cigarettes per day: 10 - Social History Usual Living Arrangement: Alone ADL: Independent History of Recent Travel: No Home Medications - Allergies Allergies/Adverse Reactions: Allergies Allergy/AdvReac Type Severity Reaction Status Date / Time No Known Drug Allergies Allergy Verified 08/11/18 18:26 - Home Medications Home Medications: Ambulatory Orders Amiodarone HCl [Cordarone -] 200 mg PO DAILY 08/11/18 Warfarin Sodium [Coumadin] 6.5 mg PO DAILY 08/11/18 Physical Exam-Neuro Vital Signs: Vital Signs Temperature 98.5 F 08/14/18 08:09 Pulse Rate 73 08/14/18 08:09 Respiratory Rate 21 H 08/14/18 08:09 Blood Pressure 103/57 L 08/14/18 08:09 O2 Sat by Pulse Oximetry (%) 96 08/13/18 09:00 Labs: CBC, BMP 08/12/18 06:30 08/12/18 06:30 INR, PTT INR 1.64 (0.83-1.09) H 08/14/18 06:50 Assessment/Plan cc Left foot pain on walking HPI 88 year old female historyof Atrial fibrillation on coumadina nd amiodarone. Patient is very independent and she lives alone and able to drive and take care of herself. Since august 11 ( ) she is having pain in her left foot so much that she is not able to bear weight and not able to walk. Patient denies any fever , she did have mild back discomfort and some discomfort when she walks . Sitting in bed , she denies any back pain or radiating pain to leg. Patient denies any history of diabetes, fever or cancer or fall. PMH as above PSH,SH,ROS reviewed in chart Allergies/Adverse Reactions: Allergies Allergy/AdvReac Type Severity Reaction Status Date / Time No Known Drug Allergies Allergy Verified 08/11/18 18:26 Home Medications: Amiodarone HCl [Cordarone -] 200 mg PO DAILY 08/11/18 Warfarin Sodium [Coumadin] 6.5 mg PO DAILY 08/11/18 NEUROLOGICAL EXAMINATION Alert oriented x 3, speech is normal, afebrile normotensive , no neck stiffness eomi, pupils reactive no face asymmetry Moving all ext There is difficulty doing planter flexion and extension in left foot due to severe pain no back tenderness and there is slight discomfort on slr on left side sensation is normal planter is bilateral diminished mri of Left foot shoed there is evidence suggestive of osteomyelitis Assessment /Plan 1 . 88 year old female lives independently and had history of Atrial fibrillation , and came with left foot swelling , and mri of L foot showed osteomyelitis. Clinically unlikey to be Lumbar radiculopathy Plan: NO need for mri of L spine or emg - Abx for osteomyelitis as per ID - Continue supportive Thanking you so much Balwinder Salinas MD
--- NOTE | 2018-08-14 12:41 | PN ---
Progress Note (short form) - Note Progress Note: Pt seen resting comfortably. Pain has improved vss mri negative for om, possible cellulitis abscess, unchanged skin dorsum left foot, -radiculopathy from neuro consult arthralgia cellulitis continue compress to left foot. will follow.
[2018-08-14] MEDS ORDERED: WARFARIN NA 5 MG TABLET (UD) PO SCH (18:00)
[2018-08-14] MEDS: ACETAMINOPHEN 325 MG TABLET (FP) PO PRN (21:50)
[2018-08-14] MEDS: LIDOCAINE PATCH REMOVAL MC SCH (21:51)
[2018-08-15 08:00] LABS: INR 1.23 (0.83-1.09); PROTHROMBIN TIME (PATIENT) 14.5 SEC (9.7-13.0)
[2018-08-15] MEDS ORDERED: DEXTROSE 5%-WATER - 50 ML IVPB ONE ×2 (09:33→18:09)
[2018-08-15] MEDS ORDERED: cefTRIAXone SODIUM 1 GM VIAL ONE (09:33)
[2018-08-15] MEDS: CEFTRIAXONE 1 GM in DEXTROSE 5%-WATER - 50 ML IVPB SCH (09:36)
[2018-08-15] MEDS: LIDOCAINE 5% TOPICAL PATCH TP SCH (09:36)
[2018-08-15] MEDS: CHOLECALCIFEROL (VIT D3) 1,000 UNIT (25 MCG) TABLET PO SCH (09:36)
[2018-08-15] MEDS: AMIODARONE HCL 200 MG TABLET (FP) PO SCH (09:36)
--- NOTE | 2018-08-15 09:37 | PN ---
Progress Note (short form) - Note Progress Note: 88 year old female historyof Atrial fibrillation on coumadina nd amiodarone. Patient is very independent and she lives alone and able to drive and take care of herself. Since august 11 ( ) she is having pain in her left foot so much that she is not able to bear weight and not able to walk. Patient denies any fever , she did have mild back discomfort and some discomfort when she walks . Sitting in bed , she denies any back pain or radiating pain to leg. Patient denies any history of diabetes, fever or cancer or fall. Patient identified to have Left foot cellulitis on mri of foot. NEUROLOGICAL EXAMINATION Alert oriented x 3, speech is normal, afebrile normotensive , no neck stiffness eomi, pupils reactive no face asymmetry Moving all ext There is difficulty doing planter flexion and extension in left foot due to severe pain no back tenderness and there is slight discomfort on slr on left side sensation is normal planter is bilateral diminished mri of Left foot cellulitis , no evidence of osteomyeliis Assessment /Plan 1 . 88 year old female lives independently and had history of Atrial fibrillation , and came with left foot swelling , and mri of L foot showed cellulitis Clinically unlikey to be Lumbar radiculopathy Plan: NO need for mri of L spine or emg - Abx for Cellulitis as per ID - Continue supportive Thanking you so much Balwinder Salinas MD
--- NOTE | 2018-08-15 11:58 | PN ---
Progress Note, Physician Chief Complaint: patient ambulated today able to bear weight on left foot on iv antibiotic MRI noted- no osteo noted - Current Medication List Current Medications: Active Medications Acetaminophen (Tylenol -) 650 mg PO Q6H PRN PRN Reason: PAIN LEVEL 1-5 Last Admin: 08/14/18 21:50 Dose: 650 mg Amiodarone HCl (Cordarone -) 200 mg PO DAILY [facility] Last Admin: 08/15/18 09:36 Dose: 200 mg Cholecalciferol (Vitamin D3 -) 1,000 unit PO DAILY [facility] Last Admin: 08/15/18 09:36 Dose: 1,000 unit Ceftriaxone Sodium 1 gm/ (Dextrose) 50 mls @ 100 mls/hr IVPB DAILY [facility]; Protocol Last Admin: 08/15/18 09:36 Dose: 100 mls/hr Lidocaine (Lidoderm Patch -) 1 patch TP DAILY [facility] Last Admin: 08/15/18 09:36 Dose: 1 patch Miscellaneous (Lidoderm Patch Removal) 1 each MC DAILY@2200 [facility] Last Admin: 08/14/18 21:51 Dose: 1 each Tramadol HCl (Ultram -) 50 mg PO Q8H PRN PRN Reason: PAIN LEVEL 6-10 Last Admin: 08/13/18 07:52 Dose: 50 mg Warfarin Sodium (Coumadin -) 7.5 mg PO DAILY@1800 [facility] - Objective Vital Signs: Vital Signs Temperature 97.9 F 08/15/18 05:55 Pulse Rate 63 08/15/18 05:55 Respiratory Rate 18 08/15/18 05:55 Blood Pressure 103/48 L 08/15/18 05:55 O2 Sat by Pulse Oximetry (%) 97 08/14/18 21:00 Constitutional: Yes: Calm Cardiovascular: Yes: Regular Rate and Rhythm, S1, S2 Respiratory: Yes: CTA Bilaterally Gastrointestinal: Yes: Normal Bowel Sounds, Soft Extremities: Yes: Other (erythema and tenderness resolved on dorsum on left foot ) Labs: CBC, BMP 08/12/18 06:30 08/12/18 06:30 INR, PTT INR 1.23 (0.83-1.09) H 08/15/18 06:35 Problem List - Problems (1) Abnormal INR Assessment/Plan: coumadin dose in 7.5 till inr therapuetic Code(s): R79.1 - ABNORMAL COAGULATION PROFILE (2) Decreased ambulation status Assessment/Plan: PT eval noted ambulation better cellutits - improving Code(s): Z74.09 - OTHER REDUCED MOBILITY (3) Foot pain, left Assessment/Plan: MRI of left foot- no osteomylitits cellutits getting iv abx podiary saw patient warm compress Code(s): M79.672 - PAIN IN LEFT FOOT (4) UTI (urinary tract infection) Assessment/Plan: iv abx not needed fu cultures Microbiology 08/11/18 20:40 Urine - Urine Clean Catch Urine Culture - Final Code(s): N39.0 - URINARY TRACT INFECTION, SITE NOT SPECIFIED Qualifiers: Urinary tract infection type: site unspecified Hematuria presence: with hematuria Qualified Code(s): N39.0 - Urinary tract infection, site not specified; R31.9 - Hematuria, unspecified (5) Afib Assessment/Plan: amiodarone daily inr coumadin dose increased Code(s): I48.91 - UNSPECIFIED ATRIAL FIBRILLATION
--- NOTE | 2018-08-15 12:08 | PN ---
Progress Note (short form) - Note Progress Note: ID CONSULT DICTATED CELLULITIS L LE ASYMPTOMATIC BACTERURIA EMPIRIC CEFAZOLIN
[2018-08-15 13:09] LABS: BASO % 0.5 % (0-2.0); EOS % 0.6 % (0-4.5); HEMATOCRIT 41.8 % (32.4-45.2); HEMOGLOBIN 14.1 GM/dL (10.7-15.3); LYMPH % 21.9 % (8-40); MCH 31.2 pg (25.7-33.7); MCHC 33.7 g/dl (32.0-36.0); MEAN CELL VOLUME 92.8 fl (80-96); MONO % 9.4 % (3.8-10.2); NEUT % 67.6 % (42.8-82.8); PLATELET COUNT 248 K/MM3 (134-434); WHITE BLOOD COUNT 7.9 K/mm3 (4.0-10.0)
[2018-08-15 13:27] LABS: ALBUMIN 3.7 g/dl (3.4-5.0); BILIRUBIN,TOTAL 0.9 mg/dL (0.2-1); BLOOD UREA NITROGEN 14.8 mg/dL (7-18); CREATININE 0.9 mg/dL (0.55-1.3); POTASSIUM 3.9 mmol/L (3.5-5.1); TOT PROT 7.7 g/dl (6.4-8.2)
[2018-08-15] MEDS: CEFAZOLIN 1 GM in DEXTROSE 5%-WATER - 50 ML IVPB SCH ×2 (13:37→18:10)
--- NOTE | 2018-08-15 16:21 | PN ---
Progress Note (short form) - Note Progress Note: Pt seen resting comfortably. Pain has improved greatly. vss unchanged skin dorsum left foot, no longer tender to touch arthralgia cellulitis lidoderm patch on calf area. will follow. anticipate dc soon. 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
[2018-08-15] MEDS ORDERED: WARFARIN NA 7.5 MG TABLET (FP) PO SCH (18:00)
[2018-08-15] MEDS ORDERED: ceFAZolin SODIUM 1 GM VIAL ONE (18:09)
--- NOTE | 2018-08-15 18:15 | CONS ---
DATE OF CONSULTATION: DATE OF DICTATION: 08/15/2018 INFECTIOUS DISEASE CONSULTATION HISTORY: The patient was admitted to the hospital on August 11, 2018, with complaints of left foot and back pain. The patient denies any traumatic injury or fall. She complained of exquisite tenderness to the right foot with swelling and erythema. She was unable to bear weight without pain. An MRI was performed of the foot and was negative for fracture, dislocation, or osteomyelitis. She was empirically treated with ceftriaxone for cellulitis. Patient reports clinical improvement on the antibiotic therapy. She is now able to bear weight and walk on the foot without pain. She denies any fever or chills. Patient had sustained a cat scratch or bite to the pretibial aspect of the right lower extremity; however, she denies any injury or scratch/bite to the left lower extremity. No associated fever or chills. She denies any urinary tract complaints. No dysuria or hematuria. No suprapubic or flank tenderness. PAST MEDICAL HISTORY: Positive for atrial fibrillation, gastroesophageal reflux, COPD, hypertension, diverticulosis, osteoarthritis. PAST SURGICAL HISTORY: Status post appendectomy. ALLERGIES: No known allergies. MEDICATIONS: Tylenol, amiodarone, Coumadin, ceftriaxone. SOCIAL HISTORY: She lives at home alone. Nonsmoker, nondrinker. SYSTEMS REVIEW: Neurologic: No loss of consciousness, seizure activity, focal weakness. Cardiac: Negative chest pain or palpitations. Respiratory: Negative cough or sputum production. Gastrointestinal: Negative vomiting or diarrhea. Genitourinary: Negative for urinary tract infection. LABORATORY DATA: White count 5.8, hematocrit 40.0, platelet count 238, creatinine 0.8. Urinalysis 40 white cells. Urine culture contaminated. ESR 14, C-reactive protein 0.4. PHYSICAL EXAMINATION: General: Patient is awake and alert, in no acute distress. Vital Signs: Temperature 97.9, blood pressure 103/48, pulse 63 regular, respirations 18 per minute. HEENT: Sclerae anicteric. Heart: Sounds S1, S2. Lungs: Clear. Abdomen: Soft and nontender. Extremities: Lower extremity, there is swelling of the left foot with erythema present along the lateral aspect of the foot extending from the toe to the ankle area, heel, and proximally up the lateral aspect of the left leg to mid-calf. It is slightly warm to touch. Nontender. No lymphangitic streaking. IMPRESSION: 1. Cellulitis, left lower extremity. 2. Asymptomatic bacteriuria. PLAN: We will obtain blood cultures. Substitute cefazolin 1 g IV piggyback every 8 hours. Elevation. Analgesics. We will follow. Thank you for the kind referral. SARAH LÓPEZ M.D. [id number]
[2018-08-15] MEDS: LIDOCAINE PATCH REMOVAL MC SCH (21:48)
[2018-08-15] MEDS ORDERED: SENNOSIDES 8.6MG TABLET (FP) PO SCH (22:00)
[2018-08-16] MEDS ORDERED: DEXTROSE 5%-WATER - 50 ML IVPB ONE ×2 (01:44→09:27)
[2018-08-16] MEDS ORDERED: ceFAZolin SODIUM 1 GM VIAL ONE ×2 (01:44→09:27)
[2018-08-16] MEDS: CEFAZOLIN 1 GM in DEXTROSE 5%-WATER - 50 ML IVPB SCH ×2 (01:47→09:30)
[2018-08-16 07:53] LABS: INR 1.33 (0.83-1.09); PROTHROMBIN TIME (PATIENT) 15.7 SEC (9.7-13.0)
--- NOTE | 2018-08-16 08:59 | PN ---
Progress Note (short form) - Note Progress Note: 88 year old female historyof Atrial fibrillation on coumadina nd amiodarone. Patient is very independent and she lives alone and able to drive and take care of herself. Since august 11 ( ) she is having pain in her left foot so much that she is not able to bear weight and not able to walk. Patient denies any fever , she did have mild back discomfort and some discomfort when she walks . Sitting in bed , she denies any back pain or radiating pain to leg. Patient denies any history of diabetes, fever or cancer or fall. Patient identified to have Left foot cellulitis on mri of foot. sheis feeling better able to walk NEUROLOGICAL EXAMINATION Alert oriented x 3, speech is normal, afebrile normotensive , no neck stiffness eomi, pupils reactive no face asymmetry Moving all ext There is difficulty doing planter flexion and extension in left foot due to severe pain no back tenderness and there is slight discomfort on slr on left side sensation is normal planter is bilateral diminished mri of Left foot cellulitis , no evidence of osteomyeliis Assessment /Plan 1 . 88 year old female lives independently and had history of Atrial fibrillation , and came with left foot swelling , and mri of L foot showed cellulitis Clinically unlikey to be Lumbar radiculopathy. She is feeling much better Plan: NO need for mri of L spine or emg - Abx for Cellulitis as per ID - Continue supportive care Thanking you so much Balwinder Salinas MD
[2018-08-16] MEDS: CHOLECALCIFEROL (VIT D3) 1,000 UNIT (25 MCG) TABLET PO SCH (09:30)
[2018-08-16] MEDS: LIDOCAINE 5% TOPICAL PATCH TP SCH (09:30)
[2018-08-16] MEDS: AMIODARONE HCL 200 MG TABLET (FP) PO SCH (09:30)
--- NOTE | 2018-08-16 11:51 | PN ---
Progress Note, Physician Chief Complaint: UTI Foot pain History of Present Illness: NAD MRI LLE shows no osteomyelitis On IV abx Able to bear some weight on her foot - Current Medication List Current Medications: Active Medications Acetaminophen (Tylenol -) 650 mg PO Q6H PRN PRN Reason: PAIN LEVEL 1-5 Last Admin: 08/14/18 21:50 Dose: 650 mg Amiodarone HCl (Cordarone -) 200 mg PO DAILY [facility] Last Admin: 08/16/18 09:30 Dose: 200 mg Cholecalciferol (Vitamin D3 -) 1,000 unit PO DAILY [facility] Last Admin: 08/16/18 09:30 Dose: 1,000 unit Cefazolin Sodium 1 gm/ (Dextrose) 50 mls @ 100 mls/hr IVPB Q8H-IV [facility] Last Admin: 08/16/18 09:30 Dose: 100 mls/hr Lidocaine (Lidoderm Patch -) 1 patch TP DAILY [facility] Last Admin: 08/16/18 09:30 Dose: 1 patch Miscellaneous (Lidoderm Patch Removal) 1 each MC DAILY@2200 [facility] Last Admin: 08/15/18 21:48 Dose: 1 each Senna (Senna -) 2 tab PO HS [facility] Last Admin: 08/15/18 21:47 Dose: 2 tab Tramadol HCl (Ultram -) 50 mg PO Q8H PRN PRN Reason: PAIN LEVEL 6-10 Last Admin: 08/13/18 07:52 Dose: 50 mg Warfarin Sodium (Coumadin -) 10 mg PO ONCE@1800 ONE Stop: 08/16/18 18:01 Warfarin Sodium (Coumadin -) 7.5 mg PO DAILY@1800 [facility] - Objective Vital Signs: Vital Signs Temperature 98.4 F 08/16/18 05:00 Pulse Rate 72 08/16/18 05:00 Respiratory Rate 18 08/16/18 05:00 Blood Pressure 109/48 L 08/16/18 05:00 O2 Sat by Pulse Oximetry (%) 96 08/15/18 21:00 Constitutional: Yes: Well Nourished, No Distress, Calm Cardiovascular: Yes: Regular Rate and Rhythm Respiratory: Yes: Regular Gastrointestinal: Yes: WNL Genitourinary: Yes: WNL Musculoskeletal: Yes: Other (Left foot pain) Extremities: Yes: WNL Edema: No Peripheral Pulses WNL: Yes Neurological: Yes: Alert, Oriented Psychiatric: Yes: Alert, Oriented Labs: CBC, BMP 08/15/18 12:48 08/15/18 12:48 INR, PTT INR 1.33 (0.83-1.09) H 08/16/18 07:00 Assessment/Plan (1) Abnormal INR Assessment/Plan: -daily INR -Coumadin 10 mg po today, then resume home dose at 6.5 mg po daily -adjust dosing as needed Code(s): R79.1 - ABNORMAL COAGULATION PROFILE (2) Decreased ambulation status Assessment/Plan: -PT eval Code(s): Z74.09 - OTHER REDUCED MOBILITY (3) Foot pain, left Assessment/Plan: -MRI of left foot results-no osteomyelitis -Podiatry Consult -ICE pack Q2H Code(s): M79.672 - PAIN IN LEFT FOOT (4) UTI (urinary tract infection) Assessment/Plan: -IV abx-change to Cephalexin 500 mg po bid x 7 days -fu cultures -ID on board Code(s): N39.0 - URINARY TRACT INFECTION, SITE NOT SPECIFIED Qualifiers: Urinary tract infection type: site unspecified Hematuria presence: with hematuria Qualified Code(s): N39.0 - Urinary tract infection, site not specified; R31.9 - Hematuria, unspecified (5) Afib Assessment/Plan: -amiodarone -Resume coumadin Code(s): I48.91 - UNSPECIFIED ATRIAL FIBRILLATION
--- NOTE | 2018-08-16 15:51 | PN ---
Progress Note, Physician History of Present Illness: AWAKE, ALERT IN BED NO C/O FOOT PAIN ABLE TO AMBULATE W/O PAIN NO FEVER/ CHILLS - Current Medication List Current Medications: Active Medications Acetaminophen (Tylenol -) 650 mg PO Q6H PRN PRN Reason: PAIN LEVEL 1-5 Last Admin: 08/14/18 21:50 Dose: 650 mg Amiodarone HCl (Cordarone -) 200 mg PO DAILY [facility] Last Admin: 08/16/18 09:30 Dose: 200 mg Cholecalciferol (Vitamin D3 -) 1,000 unit PO DAILY [facility] Last Admin: 08/16/18 09:30 Dose: 1,000 unit Cefazolin Sodium 1 gm/ (Dextrose) 50 mls @ 100 mls/hr IVPB Q8H-IV [facility] Last Admin: 08/16/18 09:30 Dose: 100 mls/hr Lidocaine (Lidoderm Patch -) 1 patch TP DAILY [facility] Last Admin: 08/16/18 09:30 Dose: 1 patch Miscellaneous (Lidoderm Patch Removal) 1 each MC DAILY@2200 [facility] Last Admin: 08/15/18 21:48 Dose: 1 each Senna (Senna -) 2 tab PO HS [facility] Last Admin: 08/15/18 21:47 Dose: 2 tab Tramadol HCl (Ultram -) 50 mg PO Q8H PRN PRN Reason: PAIN LEVEL 6-10 Last Admin: 08/13/18 07:52 Dose: 50 mg Warfarin Sodium (Coumadin -) 10 mg PO ONCE@1800 ONE Stop: 08/16/18 18:01 Warfarin Sodium (Coumadin -) 7.5 mg PO DAILY@1800 [facility] - Objective Vital Signs: Vital Signs Temperature 97.9 F 08/16/18 10:00 Pulse Rate 75 08/16/18 10:00 Respiratory Rate 20 08/16/18 10:00 Blood Pressure 112/56 L 08/16/18 10:00 O2 Sat by Pulse Oximetry (%) 95 08/16/18 10:00 Constitutional: Yes: No Distress Cardiovascular: Yes: Regular Rate and Rhythm, S1, S2 Respiratory: Yes: CTA Bilaterally Gastrointestinal: Yes: Normal Bowel Sounds, Soft. No: Tenderness Extremities: Yes: Other (MILD L FOOT SWELLING; ERYTHEMA NEARLY ALL RESOLVED) Labs: CBC, BMP 08/15/18 12:48 06/10/19 12:48 INR, PTT INR 1.33 (0.83-1.09) H 08/16/18 07:00 Assessment/Plan CELLULITIS L FOOT NEARLY ALL RESOLVED SUBSTITUTE KEFLEX 500MG PO BID X 7D
[2018-08-16 16:29] VITALS: BP 128/78; PULSE 86; TEMP 98.2
--- NOTE | 2018-08-16 17:10 | PN ---
Progress Note (short form) - Note Progress Note: Pt seen resting comfortably. Pain has improved greatly. going home today. 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 pt states she will follow up outpatient.
[2018-08-16] MEDS ORDERED: WARFARIN NA 10 MG TABLET (FP) PO ONE (18:00)
[2018-08-17] MEDS ORDERED: WARFARIN NA 7.5 MG TABLET (FP) PO SCH (18:00)
== END 2018-08-16 17:50 | disposition home health service (06) | DRG 603 ==
LOC: JER 17:56 → JERBED 22:22 → J6S 08-12 00:17
PROVIDERS: ADMIT Internal Medicine; ATTEND Family Medicine
DX: L03.116 Cellulitis of left lower limb (principal); N39.0 Urinary tract infection, site not specified; I48.91 Unspecified atrial fibrillation; M54.9 Dorsalgia, unspecified; K21.9 Gastro-esophageal reflux disease without esophagitis
CPT/HCPCS: 36415; 71046-TC-FY; 72070-TC-FY; 72100-TC-FY; 73630-TC-LT; 73718-TC-LT; 80053; 81003; 83735; 84100; 84436; 84443; 84484; 84550; 85025; 85610; 85651; 86140; 87040; 87086; 93005; 93010; 93970-TC; 97116-GP; 97161-GP; 99283-25

== ENCOUNTER 2019-02-26 20:06 | Inpatient (IN) | payer OTHER, MEDICARE ==
--- NOTE | 2019-02-26 21:34 | PDOC ---
History of Present Illness - General Chief Complaint: Injury Stated Complaint: LT AKLE SWOLLEN Time Seen by Provider: 02/26/19 21:19 - History of Present Illness Initial Comments: 02/26/19 21:27 88-year-old female with a past medical history of atrial fibrillation and cellulitis admitted to the ICU recently presents for evaluation of left ankle pain x1 day without systemic symptoms Past History - Past Medical History Allergies/Adverse Reactions: Allergies Allergy/AdvReac Type Severity Reaction Status Date / Time No Known Drug Allergies Allergy Verified 02/26/19 20:14 Home Medications: Ambulatory Orders Amiodarone HCl [Cordarone -] 200 mg PO DAILY 08/11/18 Warfarin Sodium [Coumadin] 6.5 mg PO DAILY 08/11/18 Acetaminophen [Tylenol .Regular Strength -] 650 mg PO Q6H PRN tablet 08/16/18 Anemia: No Asthma: No Cancer: No Cardiac Disorders: Yes (A-Fib, mitral regurgitation) CVA: No COPD: No CHF: No Dementia: No Diabetes: No GI Disorders: Yes (GERD) Disorders: No HTN: No Hypercholesterolemia: No Liver Disease: No Seizures: No Thyroid Disease: No - Surgical History Abdominal Surgery: Yes Appendectomy: Yes (s) Cardiac Surgery: Yes (ablation) Cholecystectomy: No Lung Surgery: No Neurologic Surgery: No Orthopedic Surgery: Yes (Hip replacement) - Immunization History Immunization Up to Date: Yes - Psycho Social/Smoking Cessation Hx Smoking Status: Yes Smoking History: Never smoked Have you smoked in the past 12 months: No Number of Cigarettes Smoked Daily: 10 If you are a former smoker, when did you quit?: 01/23 Information on smoking cessation initiated: Yes 'Breaking Loose' booklet given: 12/21/17 Hx Alcohol Use: No Drug/Substance Use Hx: No Substance Use Type: None Hx Substance Use Treatment: No Review of Systems - Review of Systems Constitutional: No: Fever Musculoskeletal: Yes: Joint Pain *Physical Exam - Vital Signs Last Vital Signs Temp Pulse Resp BP Pulse Ox 98.8 F 68 17 136/65 100 02/26/19 20:11 02/26/19 20:11 02/26/19 20:11 02/26/19 20:11 02/26/19 20:11 - Physical Exam 02/26/19 21:29 Minimal erythema about the left lower extremity mild warmth about the left ankle and pain with passive motion without gross sensorimotor deficits. Medical Decision Making - Medical Decision Making 02/26/19 21:34 Patient will be sent to the main emergency room for admission. Discharge - Discharge Information Problems reviewed: Yes Clinical Impression/Diagnosis: Cellulitis - Follow up/Referral - Patient Discharge Instructions - Post Discharge Activity
[2019-02-26 22:25] LABS: BASO % 0.9 % (0-2.0); EOS % 0.5 % (0-4.5); HEMATOCRIT 39.6 % (32.4-45.2); LYMPH % 19.5 % (8-40); MCH 30.6 pg (25.7-33.7); MCHC 32.9 g/dl (32.0-36.0); MEAN CELL VOLUME 93.1 fl (80-96); MEAN PLT VOLUME 9.4 fl (7.5-11.1); NEUT % 67.1 % (42.8-82.8); PLATELET COUNT 208 K/MM3 (134-434); RBC 4.26 M/mm3 (3.60-5.2); RDW 14.4 % (11.6-15.6); WHITE BLOOD COUNT 8.6 K/mm3 (4.0-10.0)
--- NOTE | 2019-02-26 22:28 | PDOC ---
History of Present Illness - General Chief Complaint: Injury Stated Complaint: LT AKLE SWOLLEN Time Seen by Provider: 02/26/19 21:19 History Source: Patient, Family Exam Limitations: No Limitations - History of Present Illness Initial Comments: 88 y/o F, pmh of a-fib on coumadin, previous admission for left foot cellulitis , presents to the ED c/o left foot and ankle pain and redness of one day duration that began spontaneously and has since worsened. Pt reports that she unable to bear wait on the foot and unable to move her toes. She reports that she has been treated for a similar symptoms in august for which he was treated with abx. Pt reports no trauma to the foot or injury recently. Pt admits to chills but denies f//n/v/d/numbness or tingling of the LE, sob, chest pain. 02/26/19 22:29 02/26/19 22:37 Severity: mild Associated Symptoms: reports: denies symptoms. denies: chest pain, cough, diaphoresis, fever/chills, headaches, nausea/vomiting, shortness of breath Aspirin Received prior to arrival: No: no aspirin today Past History - Past Medical History Allergies/Adverse Reactions: Allergies Allergy/AdvReac Type Severity Reaction Status Date / Time No Known Drug Allergies Allergy Verified 02/26/19 20:14 Home Medications: Ambulatory Orders Amiodarone HCl [Cordarone -] 200 mg PO DAILY 08/11/18 Warfarin Sodium [Coumadin] 6.5 mg PO DAILY 08/11/18 Anemia: No Asthma: No Cancer: No Cardiac Disorders: Yes (A-Fib, mitral regurgitation) CVA: No COPD: No CHF: No Dementia: No Diabetes: No GI Disorders: Yes (GERD) Disorders: No HTN: No Hypercholesterolemia: No Liver Disease: No Seizures: No Thyroid Disease: No - Surgical History Abdominal Surgery: Yes Appendectomy: Yes (1950s) Cardiac Surgery: Yes (ablation) Cholecystectomy: No Lung Surgery: No Neurologic Surgery: No Orthopedic Surgery: Yes (Hip replacement) - Immunization History Immunization Up to Date: Yes - Psycho Social/Smoking Cessation Hx Smoking Status: Yes Smoking History: Never smoked Have you smoked in the past 12 months: No Number of Cigarettes Smoked Daily: 10 If you are a former smoker, when did you quit?: 01/23 Information on smoking cessation initiated: Yes 'Breaking Loose' booklet given: 12/21/17 Hx Alcohol Use: No Drug/Substance Use Hx: No Substance Use Type: None Hx Substance Use Treatment: No Review of Systems - Review of Systems Able to Perform ROS?: Yes Is the patient limited Welsh proficient: No Constitutional: Yes: Symptoms Reported, Weight Stable. No: Diaphoresis, Fever HEENTM: Yes: Symptoms Reported Respiratory: Yes: Symptoms reported. No: Cough, Shortness of Breath, Wheezing, Productive cough Cardiac (ROS): Yes: Symptoms Reported. No: Chest Pain, Chest Tightness ABD/GI: Yes: Symptoms Reported. No: Diarrhea, Nausea, Vomiting : Yes: Symptoms Reported. No: Dysuria Musculoskeletal: Yes: Symptoms Reported, Joint Pain, Joint Swelling. No: Gout Integumentary: Yes: Symptoms Reported, Change in Color, Erythema Neurological: Yes: Symptoms reported. No: Headache, Numbness, Paresthesia, Tremors, Weakness All Other Systems: Reviewed and Negative *Physical Exam - Vital Signs Last Vital Signs Temp Pulse Resp BP Pulse Ox 98.8 F 68 17 136/65 100 02/26/19 20:11 02/26/19 20:11 02/26/19 20:11 02/26/19 20:11 02/26/19 20:11 - Physical Exam General Appearance: Yes: Nourished, Appropriately Dressed HEENT: positive: EOMI, EDA, Normal ENT Inspection, Pharynx Normal Neck: positive: Trachea midline, Normal Thyroid, Supple Respiratory/Chest: positive: Lungs Clear, Normal Breath Sounds Cardiovascular: positive: Regular Rhythm, Regular Rate, S1, S2. negative: Murmur, Gallop/S3, Gallop/S4 Vascular Pulses: Dorsalis-Pedis (R): 2+, Doralis-Pedis (L): 2+ Gastrointestinal/Abdominal: positive: Normal Bowel Sounds, Soft. negative: Guarding, Rebound, Tenderness Musculoskeletal: positive: Decreased Range of Motion (of the Left LE) Extremity: positive: Swelling, Erythema, Inflammation. negative: Normal Range of Motion, Coldness, Cyanosis, Delayed Capillary Refill, Pedal Edema, Calf Tenderness Integumentary: positive: Warm, Erythema Neurologic: positive: Fully Oriented, Alert, Normal Mood/Affect, Motor Strength 5/5 ED Treatment Course - LABORATORY CBC & Chemistry Diagram: 02/26/19 22:00 02/26/19 22:00 - ADDITIONAL ORDERS Additional order review: 02/26/19 22:00 RBC 4.26 MCV 93.1 MCHC 32.9 RDW 14.4 MPV 9.4 Neutrophils % 67.1 D Lymphocytes % 19.5 D Monocytes % 12.0 H Eosinophils % 0.5 Basophils % 0.9 - RADIOLOGY Radiology Studies Ordered: Category Date Time Status ANKLE & FOOT-LEFT* [RAD] Stat Radiology 02/26/19 22:24 Ordered Medical Decision Making - Medical Decision Making 88 y/o F, pmh of a-fib on coumadin, OA, previous admission for left foot cellulitis, presents to the ED c/o left foot and ankle pain and redness of one day duration that began spontaneously and has since worsened #LE pain, erythema and swelling likely 2/2 to cellulitis X ray of the left foot will start empiric abx w/ Keflex 500 Tylenol 650 for pain Morphine IV given CBC, CMP Lactic acid monitor white count and temp EKG ordered 02/26/19 22:37 02/26/19 22:39 02/26/19 22:40 02/26/19 22:41 02/26/19 22:58 Discharge - Discharge Information Problems reviewed: Yes Clinical Impression/Diagnosis: Cellulitis Qualifiers: Site of cellulitis: extremity Site of cellulitis of extremity: lower extremity Laterality: left Qualified Code(s): L03.116 - Cellulitis of left lower limb - Follow up/Referral - Patient Discharge Instructions - Post Discharge Activity
[2019-02-26] MEDS ORDERED: CEPHALEXIN MONOHYDRATE 500 MG CAPSULE (UD) PO ONE (22:33)
[2019-02-26] MEDS ORDERED: CEPHALEXIN MONOHYDRATE 500 MG CAPSULE (UD) ONE (22:36)
[2019-02-26] MEDS ORDERED: ACETAMINOPHEN 325 MG TABLET (FP) ONE (22:41)
[2019-02-26] MEDS: ACETAMINOPHEN 325 MG TABLET (FP) PO PRN (22:42)
[2019-02-26 22:44] LABS: PROTHROMBIN TIME (PATIENT) 60.7 SEC (9.7-13.0)
[2019-02-26] MEDS ORDERED: MORPHINE SULFATE 2 MG/ML VIAL ONE (22:55)
[2019-02-26] MEDS ORDERED: morphine CARPU-JECT 2 MG/1 ML DISP.SYRIN IVPUSH ONE (22:57)
[2019-02-26 23:03] LABS: ALBUMIN 3.8 g/dl (3.4-5.0); BLOOD UREA NITROGEN 14.9 mg/dL (7-18); CALCIUM 9.3 mg/dL (8.5-10.1); CREATININE 0.9 mg/dL (0.55-1.3); INR 5.06 (0.83-1.09); POTASSIUM 4.1 mmol/L (3.5-5.1); TOT PROT 7.2 g/dl (6.4-8.2)
[2019-02-27] MEDS ORDERED: traMADol HCL 50 MG TABLET PO ONE (00:10)
--- NOTE | 2019-02-27 00:23 | PDOC ---
*Physical Exam - Vital Signs Last Vital Signs Temp Pulse Resp BP Pulse Ox 98.8 F 68 17 136/65 100 02/26/19 20:11 02/26/19 20:11 02/26/19 20:11 02/26/19 20:11 02/26/19 20:11 ED Treatment Course - LABORATORY CBC & Chemistry Diagram: 02/26/19 22:00 02/26/19 22:00 - ADDITIONAL ORDERS Additional order review: Laboratory Results 02/26/19 02/26/19 02/26/19 22:00 22:00 22:00 PT with INR 60.70 H INR 5.06 H* Sodium 140 Potassium 4.1 Chloride 108 H Carbon Dioxide 23 Anion Gap 9 BUN 14.9 Creatinine 0.9 Est GFR (CKD-EPI)AfAm 66.63 Est GFR (CKD-EPI)NonAf 57.49 Random Glucose 101 Lactic Acid 2.1 H Calcium 9.3 Total Bilirubin 1.0 AST 41 H ALT 26 Alkaline Phosphatase 98 Total Protein 7.2 Albumin 3.8 02/26/19 22:00 RBC 4.26 MCV 93.1 MCHC 32.9 RDW 14.4 MPV 9.4 Neutrophils % 67.1 D Lymphocytes % 19.5 D Monocytes % 12.0 H Eosinophils % 0.5 Basophils % 0.9 - Medications Given in the ED: ED Medications Discontinued Medications Generic Name Dose Route Start Last Admin Trade Name Fina PRN Reason Stop Dose Admin Cephalexin HCl 500 mg 02/26/19 22:33 02/26/19 22:37 Keflex - PO 02/26/19 22:34 500 mg ONCE ONE Administration Morphine Sulfate 1 mg 02/26/19 22:57 02/26/19 22:58 Morphine Injection - IVPUSH 02/26/19 22:58 1 mg ONCE ONE Administration Medical Decision Making - Medical Decision Making 02/27/19 01:56 88F w/hx afib on coumadin, prior L foot cellulitis, p/w one day of worsening L foot and ankle pain, unable to bear weight; no fevers, numbness, chest pain, sob. Empiric Keflex initiated, XR negative for acute process. Labs wnl, acetaminophen, toradol, morphine given for pain thus far. Pending: Reassessment as still unable to ambulate secondary to pain Morphine 1mg for pain Dispo: Discharge pending ambulation Discharge - Discharge Information Problems reviewed: Yes Clinical Impression/Diagnosis: Cellulitis Qualifiers: Site of cellulitis: extremity Site of cellulitis of extremity: lower extremity Laterality: left Qualified Code(s): L03.116 - Cellulitis of left lower limb Condition: Stable Disposition: HOME - Admission No - Follow up/Referral - Patient Discharge Instructions - Post Discharge Activity
--- NOTE | 2019-02-27 00:28 | PDOC ---
Documentation entered by Hang Sen SCRIBE, acting as scribe for Lauryn Kim MD. Lauryn Kim MD: This documentation has been prepared by the vanee, Hang Sen SCRIBE, under my direction and personally reviewed by me in its entirety. I confirm that the documentation accurately reflects all work, treatment, procedures, and medical decision making performed by me. Attending Attestation - Resident Resident Name: Riaz Kim - ED Attending Attestation I have performed the following: I have examined & evaluated the patient, The case was reviewed & discussed with the resident, I agree w/resident's findings & plan, Exceptions are as noted - HPI HPI: 02/26/19 21:52 The patient is an 88 year old female with a past medical history of afib (prior ablation, coumadin), HTN, COPD, mild mitral regurg, diverticulitis, OA, and hemarthrosis here today for evaluation of left ankle pain. The patient reports that this afternoon she developed left ankle pain that radiates down to her toes with the worst over the lateral malleolus without any precipitating trauma. She also notes some redness and swelling in that area. She notes that she was admitted for cellulitis in the same area and also notes that she had a stress fracture in that area last year. Patient denies headache, lightheadedness. Denies fever, chills. Denies chest pain, shortness of breath. Denies nausea, vomiting, diarrhea, abdominal pain. Allergies: NKDA PCP: Tisha Urban - Physicial Exam PE: 02/26/19 21:52 GENERAL: Well developed, well nourished. Awake and alert. No acute distress. HEENT: Normocephalic, atraumatic. PERRLA, EOMI. No conjunctival pallor. Sclera are non- icteric. Moist mucous membranes. Oropharynx is clear. NECK: Supple. Full ROM. No JVD. Carotid pulses 2+ and symmetric, without bruits. No thyromegaly. No lymphadenopathy. CARDIOVASCULAR: Regular rate and rhythm. No murmurs, rubs, or gallops. Distal pulses are 2+ and symmetric. PULMONARY: No evidence of respiratory distress. Lungs clear to auscultation bilaterally. No wheezing, rales or rhonchi. ABDOMINAL: Soft. Non-tender. Non-distended. No rebound or guarding. No organomegaly. Normoactive bowel sounds. MUSCULOSKELETAL Normal range of motion at all joints. No bony deformities or tenderness. No CVA tenderness. EXTREMITIES: +mild erythema of left ankle. +left ankle and foot tenderness most prominent over the lateral malleolus. No cyanosis. No clubbing. No calf tenderness. SKIN: Warm and dry. Normal capillary refill. No rashes. No jaundice. NEUROLOGICAL: Alert, awake, appropriate. Cranial nerves 2-12 intact. No deficits to light touch and temperature in face, upper extremities and lower extremities. No motor deficits in the in face, upper extremities and lower extremities. Normoreflexic in the upper and lower extremities. Normal speech. Toes are down- going bilaterally. PSYCHIATRIC: Cooperative. Good eye contact. Appropriate mood and affect. - Medical Decision Making 02/27/19 00:11 Patient presents with left malleolus pain and minimal swelling She denies any history of trauma The skin of the area slightly warm but there is no area of induration or abscess or streaking. So she has no acute cellulitis appreciated She has no fever CBC is within normal limits foot x-ray does show significant DJD 02/27/19 01:28
[2019-02-27] MEDS ORDERED: traMADol HCL 50 MG TABLET ONE (00:29)
[2019-02-27] MEDS ORDERED: morphine CARPU-JECT 2 MG/1 ML DISP.SYRIN IVPUSH ONE (01:17)
[2019-02-27] MEDS ORDERED: MORPHINE SULFATE 2 MG/ML VIAL ONE (01:27)
--- NOTE | 2019-02-27 02:26 | PDOC ---
*Physical Exam - Vital Signs Last Vital Signs Temp Pulse Resp BP Pulse Ox 98.8 F 69 18 146/67 96 02/26/19 20:11 02/27/19 00:55 02/27/19 00:55 02/27/19 00:55 02/27/19 00:55 ED Treatment Course - LABORATORY CBC & Chemistry Diagram: 02/26/19 22:00 02/26/19 22:00 - ADDITIONAL ORDERS Additional order review: Laboratory Results 02/26/19 02/26/19 02/26/19 22:00 22:00 22:00 PT with INR 60.70 H INR 5.06 H* Sodium 140 Potassium 4.1 Chloride 108 H Carbon Dioxide 23 Anion Gap 9 BUN 14.9 Creatinine 0.9 Est GFR (CKD-EPI)AfAm 66.63 Est GFR (CKD-EPI)NonAf 57.49 Random Glucose 101 Lactic Acid 2.1 H Calcium 9.3 Total Bilirubin 1.0 AST 41 H ALT 26 Alkaline Phosphatase 98 Total Protein 7.2 Albumin 3.8 02/26/19 22:00 RBC 4.26 MCV 93.1 MCHC 32.9 RDW 14.4 MPV 9.4 Neutrophils % 67.1 D Lymphocytes % 19.5 D Monocytes % 12.0 H Eosinophils % 0.5 Basophils % 0.9 - Medications Given in the ED: ED Medications Discontinued Medications Generic Name Dose Route Start Last Admin Trade Name Fina PRN Reason Stop Dose Admin Cephalexin HCl 500 mg 02/26/19 22:33 02/26/19 22:37 Keflex - PO 02/26/19 22:34 500 mg ONCE ONE Administration Morphine Sulfate 1 mg 02/26/19 22:57 02/26/19 22:58 Morphine Injection - IVPUSH 02/26/19 22:58 1 mg ONCE ONE Administration Morphine Sulfate 1 mg 02/27/19 01:17 02/27/19 01:30 Morphine Injection - IVPUSH 02/27/19 01:18 1 mg ONCE ONE Administration Tramadol HCl 50 mg 02/27/19 00:10 02/27/19 00:30 Ultram - PO 02/27/19 00:11 50 mg ONCE ONE Administration Medical Decision Making - Medical Decision Making 02/27/19 02:23 Patient for admission for inability ambulate DDX: Cellulitis vs gout MRI / gout workup negative in the past Oral Keflex here Patient cannot ambulate, no one to give her a ride Discharge - Discharge Information Problems reviewed: Yes Clinical Impression/Diagnosis: Unable to ambulate Cellulitis Qualifiers: Site of cellulitis: extremity Site of cellulitis of extremity: lower extremity Laterality: left Qualified Code(s): L03.116 - Cellulitis of left lower limb Condition: Stable Disposition: HOME - Admission Yes - Follow up/Referral - Patient Discharge Instructions - Post Discharge Activity
--- NOTE | 2019-02-27 03:05 | PN ---
Teaching Attending Note Name of Resident: Sruthi Heard ATTENDING PHYSICIAN STATEMENT I saw and evaluated the patient. I reviewed the resident's note and discussed the case with the resident. I agree with the resident's findings and plan as documented. SUBJECTIVE: Patient is an 88 year old man with a PMH of Afib (prior ablation, coumadin), HTN , COPD, Mitral regurgitation, Diverticulitis, Osteoarthritis, and Hemarthrosis who presents with left ankle pain. The patient reports that this afternoon she developed left ankle pain that radiates down to her toes with the worst over the lateral malleolus without any precipitating trauma. She also notes some redness and swelling in that area. She notes that she was admitted for cellulitis in the same area and also notes that she had a stress fracture in that area last year. Patient denies headache, lightheadedness, fever, chest pain , shortness of breath, nausea, vomiting, diarrhea, dysuria or abdominal pain. No recent travel or sick contacts. Denies tobacco, alcohol or illicit drug use. OBJECTIVE: Alert Vital Signs Period Temp Pulse Resp BP Sys/Lucero Pulse Ox Last 24 Hr 98.8 F 68-69 17-18 136-146/65-67 96-100 HEENT: No Jaundice, eye redness or discharge, PERRLA, EOMI. Normocephalic, atraumatic. External ears are normal and hearing is grossly intact. No nasal discharge. Neck: Supple, nontender. No palpable adenopathy or thyromegaly. No JVD Chest: Good effort. Clear to auscultation and percussion. Heart: Regular. No S3, rub or murmur Abdomen: Not distended, soft, nontender and no HSM. No rebound or guarding. Normal bowel sounds. Ext: Peripheral pulses intact. Tender left lateral malleolus; erythema on the lateral aspect of left leg. No edema. Skin: Warm and dry. No petechiae, rash or ecchymosis. Neuro: Alert. Oriented x3. CN 2-12 grossly intact. Sensation grossly intact in all four extremities and DTR are symmetric. Psych: Appropriate mood and affect. Good insight. Current Medications Generic Name Dose Route Start Last Admin Trade Name Freq PRN Reason Stop Dose Admin Acetaminophen 650 mg 02/26/19 22:38 02/26/19 22:42 Tylenol - PO 650 mg Q6H PRN Administration Fever Or Pain Home Medications Medication Instructions Recorded Amiodarone HCl [Cordarone -] 200 mg PO DAILY 08/11/18 Warfarin Sodium [Coumadin] 6.5 mg PO DAILY 08/11/18 Abnormal Lab Results 02/26/19 02/26/19 02/26/19 22:00 22:00 22:00 Monocytes % 12.0 H PT with INR 60.70 H INR 5.06 H* Chloride 108 H Lactic Acid AST 41 H 02/26/19 22:00 Monocytes % PT with INR INR Chloride Lactic Acid 2.1 H AST ASSESSMENT AND PLAN: 1. Left ankle/foot pain - Xrays of the foot and ankle show degenerative joint disease, no obvious fracture, dislocation or air collection. Pain may signal exacerbation of osteoarthrtis, but a pathological fracture will be ruled out. Will get MRI of both feet and ankle, uric acid, CRP and ESR. Use toradol, warm compress, topical analgesics and lidocaine patch for pain control. Lactic acidosis is unexplained, but the erythematous area which does not coincide with pain may be due to cellulitis. Will treat with IV Ancef pending results of further workup. Urinalysis pending. Will hold coumadin for supratherpeutic INR. EKG shows NSR with nonspecific diffuse t wave flattening. Will continue comprehensive care for all of patients comorbid conditions. 2. Hypertension - Restart suitable outpatient antihypertensive drugs when clinically appropriate. 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 Nonpharmacologic measures to control hypertension like weight loss , salt restriction and exercise discussed. Importance of adherence to treatment regimen and attainment of normotension emphasized. 3. DVT prophylaxis - Supratherapeutic INR on coumadin 4. Advance directives - Full code
--- NOTE | 2019-02-27 04:08 | HP ---
CHIEF COMPLAINT: left ankle/foot pain PCP: Wilmar HISTORY OF PRESENT ILLNESS: 88 year old female with PMHx of Afib (on Coumadin and an ablation (2 years ago) ), cellulitis in August 2018, COPD, OA of the bilateral hands, right hip replacement two years ago, GERD, diverticulitis, and mitral regurgitation, who presents to the ED due to sudden onset of left leg pain, redness and swelling. The pain radiates down to the left lateral ankle/malleolus. Patient states the pain began around 2 PM today, has been worsening since and is dull/aching in nature, currently a 9/10 despite pain medication. She states she has been unable to bear weight since it began. She usually ambulates with a cane at home. She presented with the same leg pain in August, and She notes that she was admitted for cellulitis in the same area and also notes that she had a stress fracture in that area last year. Patient denies any other complaints at this time. No abdominal pain, bowel changes, or urinary changes. No chest pain, shortness of breath, fever, headaches or other problems. Patient denies any known trauma to the area. Patient states she is compliant with her medications ( takes Warfarin 6.5 mg) and does avoid leafy vegetables. She admits to drinking about 1 glass of martini before dinner every day,but denies heavy alcohol use. She is a former smoker; patient smoked ppd for 65 years and quit January 2018. ER course was notable for: (1) CBC unremarkable, CMP with PT/INR 60.7/5.06 (2) Xray of ankle negative (3) EKG NSR with nonspecific ST and T wave abnormality. morphine, tramadol, tylenol for pain control and keflex for early cellulitis Recent Travel: none PAST MEDICAL HISTORY: as above PAST SURGICAL HISTORY: R hip replacement Social History: Smoking: former smoker of 1/2 PPD since 19 but quit in 2018 Alcohol: one martini daily Drugs: none Allergies No Known Drug Allergies Allergy (Verified 02/26/19 20:14) HOME MEDICATIONS: Home Medications Medication Instructions Recorded Amiodarone HCl [Cordarone -] 200 mg PO DAILY 08/11/18 Warfarin Sodium [Coumadin] 6.5 mg PO DAILY 08/11/18 REVIEW OF SYSTEMS CONSTITUTIONAL: Absent: fever, chills, diaphoresis, generalized weakness, malaise, loss of appetite, weight change HEENT: Absent: rhinorrhea, nasal congestion, throat pain, throat swelling, difficulty swallowing, mouth swelling, ear pain, eye pain, visual changes CARDIOVASCULAR: Absent: chest pain, syncope, palpitations, irregular heart rate, lightheadedness , peripheral edema RESPIRATORY: Absent: cough, shortness of breath, dyspnea with exertion, orthopnea, wheezing, stridor, hemoptysis GASTROINTESTINAL: Absent: abdominal pain, abdominal distension, nausea, vomiting, diarrhea, constipation, melena, hematochezia GENITOURINARY: Absent: dysuria, frequency, urgency, hesitancy, hematuria, flank pain, genital pain MUSCULOSKELETAL: arthralgia, joint swelling Absent: myalgia, back pain, neck pain SKIN: Absent: rash, itching, pallor HEMATOLOGIC/IMMUNOLOGIC: Absent: easy bleeding, easy bruising, lymphadenopathy, frequent infections ENDOCRINE: Absent: unexplained weight gain, unexplained weight loss, heat intolerance, cold intolerance NEUROLOGIC: Absent: headache, focal weakness or paresthesias, dizziness, unsteady gait, seizure, mental status changes, bladder or bowel incontinence PSYCHIATRIC: Absent: anxiety, depression, suicidal or homicidal ideation, hallucinations. PHYSICAL EXAMINATION Vital Signs - 24 hr 02/26/19 02/27/19 02/27/19 20:11 00:55 03:51 Temperature 98.8 F Pulse Rate 68 Pulse Rate [ 69 70 Left Radial] Respiratory 17 18 18 Rate Blood Pressure 136/65 Blood Pressure 146/67 146/70 [Left Arm] O2 Sat by Pulse 100 96 95 Oximetry (%) GENERAL: Awake, alert, and fully oriented, in mild distress. HEAD: Normal with no signs of trauma. EYES: Pupils equal, round and reactive to light, extraocular movements intact, sclera anicteric, conjunctiva clear. No lid lag. EARS, NOSE, THROAT: oropharynx clear without exudates. Moist mucous membranes. NECK: Normal range of motion, supple without lymphadenopathy, JVD, or masses. LUNGS: Breath sounds equal, clear to auscultation bilaterally. No wheezes, and no crackles. No accessory muscle use. HEART: Regular rate and rhythm, normal S1 and S2 without murmur, rub or gallop. ABDOMEN: Soft, nontender, not distended, normoactive bowel sounds, no guarding, no rebound, no masses. No hepatomegaly or splenomegaly. MUSCULOSKELETAL: Normal range of motion at all joints except for left ankle dorsiflexion restriction. OA bony deformities in b/l hands. No CVA tenderness. UPPER EXTREMITIES: 2+ pulses, warm, well-perfused. No cyanosis. No clubbing. No peripheral edema. LOWER EXTREMITIES: 2+ pulses, warm, well-perfused. No calf tenderness.trace peripheral edema with early cellulitis PSYCHIATRIC: Cooperative. Good eye contact. Appropriate mood and affect. SKIN: erythematous skin on L lower foot Laboratory Results - last 24 hr 02/26/19 02/26/19 02/26/19 22:00 22:00 22:00 WBC 8.6 RBC 4.26 Hgb 13.0 Hct 39.6 MCV 93.1 MCH 30.6 MCHC 32.9 RDW 14.4 Plt Count 208 MPV 9.4 Absolute Neuts (auto) 5.8 Neutrophils % 67.1 D Lymphocytes % 19.5 D Monocytes % 12.0 H Eosinophils % 0.5 Basophils % 0.9 Nucleated RBC % 0 PT with INR 60.70 H INR 5.06 H* Sodium 140 Potassium 4.1 Chloride 108 H Carbon Dioxide 23 Anion Gap 9 BUN 14.9 Creatinine 0.9 Est GFR (CKD-EPI)AfAm 66.63 Est GFR (CKD-EPI)NonAf 57.49 Random Glucose 101 Lactic Acid Calcium 9.3 Total Bilirubin 1.0 AST 41 H ALT 26 Alkaline Phosphatase 98 Total Protein 7.2 Albumin 3.8 02/26/19 22:00 WBC RBC Hgb Hct MCV MCH MCHC RDW Plt Count MPV Absolute Neuts (auto) Neutrophils % Lymphocytes % Monocytes % Eosinophils % Basophils % Nucleated RBC % PT with INR INR Sodium Potassium Chloride Carbon Dioxide Anion Gap BUN Creatinine Est GFR (CKD-EPI)AfAm Est GFR (CKD-EPI)NonAf Random Glucose Lactic Acid 2.1 H Calcium Total Bilirubin AST ALT Alkaline Phosphatase Total Protein Albumin ASSESSMENT/PLAN: 88 year old female with PMHx of Afib (on Coumadin and an ablation (2 years ago)) , cellulitis in August 2018, COPD, OA of the bilateral hands, GERD, diverticulitis, and mitral regurgitation, who presents to the ED due to sudden onset of left leg pain, redness and swelling. Left leg/ankle pain and swelling possibly due to cellulitis vs gout vs occult fracture pt denies any trauma to the area. has been drinking martini daily and red meat 3x/week. currently afebrile and with no white count Prior hx of cellulitis and stress fracture IV ancef 1gm Q8h for antibiotics coverage Pain control with tylenol and tramadol duplex US to rule out DVT in the setting of swelling and redness uric acid level and UA to r/o gout ESR /CRP for infectious source Physical therapy ordered MRI of b/l lower extremities to r/o occult fractures Supratherapeutic INR INR 5.06 hold warfarin monitor PT/INR Afib resume amiodarone once medrec holding AC for now until therapeutic level reached DVT already on coumadin at supratherapeutic level Admit to med-surge Visit type - Emergency Visit Emergency Visit: Yes Care time: The patient presented to the Emergency Department on the above date and was hospitalized for further evaluation of their emergent condition. - New Patient This patient is new to me today: Yes Date on this admission: 02/27/19 - Critical Care Critical Care patient: No ATTENDING PHYSICIAN STATEMENT I saw and evaluated the patient. I reviewed the resident's note and discussed the case with the resident. I agree with the resident's findings and plan as documented. SUBJECTIVE: OBJECTIVE: ASSESSMENT AND PLAN:
[2019-02-27] MEDS ORDERED: traMADol HCL 50 MG TABLET PO PRN (04:39)
[2019-02-27 05:04] VITALS: BMI 24.1
[2019-02-27 07:58] LABS: BASO % 0.4 % (0-2.0); EOS % 0.5 % (0-4.5); HEMATOCRIT 37.3 % (32.4-45.2); HEMOGLOBIN 12.6 GM/dL (10.7-15.3); MCH 31.1 pg (25.7-33.7); MCHC 33.8 g/dl (32.0-36.0); MEAN CELL VOLUME 91.9 fl (80-96); MEAN PLT VOLUME 9.1 fl (7.5-11.1); MONO % 14.3 % (3.8-10.2); NEUT % 54.8 % (42.8-82.8); PLATELET COUNT 181 K/MM3 (134-434); RBC 4.05 M/mm3 (3.60-5.2); RDW 14.4 % (11.6-15.6); WHITE BLOOD COUNT 6.2 K/mm3 (4.0-10.0)
[2019-02-27 08:09] LABS: PROTHROMBIN TIME (PATIENT) 61.4 SEC (9.7-13.0)
[2019-02-27 08:26] LABS: ALBUMIN 3.4 g/dl (3.4-5.0); BILIRUBIN,TOTAL 1.7 mg/dL (0.2-1); BLOOD UREA NITROGEN 13.8 mg/dL (7-18); CREATININE 0.8 mg/dL (0.55-1.3); PHOSPHOROUS 3.3 mg/dL (2.5-4.9); POTASSIUM 3.8 mmol/L (3.5-5.1); TOT PROT 6.5 g/dl (6.4-8.2); URIC ACID 2.9 mg/dL (2.6-7.2)
[2019-02-27 09:10] LABS: INR 5.12 (0.83-1.09)
--- NOTE | 2019-02-27 09:57 | PN ---
Progress Note, Physician - Current Medication List Current Medications: Active Medications Acetaminophen (Tylenol -) 650 mg PO Q6H PRN PRN Reason: Fever Or Pain Last Admin: 02/26/19 22:42 Dose: 650 mg Cefazolin Sodium (Ancef 1 Gm Premixed Ivpb -) 1 gm in 50 mls @ 100 mls/hr IVPB Q8H-IV VANESA Stop: 02/28/19 09:59 Tramadol HCl (Ultram -) 50 mg PO Q6H PRN PRN Reason: PAIN LEVEL 6-10 - Objective Vital Signs: Vital Signs Temperature 98.1 F 02/27/19 04:56 Pulse Rate 75 02/27/19 04:56 Respiratory Rate 20 02/27/19 04:56 Blood Pressure 150/71 02/27/19 04:56 O2 Sat by Pulse Oximetry (%) 94 L 02/27/19 05:08 Cardiovascular: Yes: S1, S2 Respiratory: Yes: Regular, CTA Bilaterally Gastrointestinal: Yes: Normal Bowel Sounds, Soft Musculoskeletal: Yes: Joint Swelling (ankle with tenderness) Edema: Yes Edema: LLE: 1+ Integumentary: Yes: Erythema Labs: CBC, BMP 02/27/19 07:17 02/27/19 07:17 INR, PTT INR 5.12 (0.83-1.09) H* 02/27/19 07:17 Problem List - Problems (1) Cellulitis Assessment/Plan: pt denies any trauma to the area Prior hx of cellulitis and stress fracture IV ancef 1gm Q8h for antibiotics coverage Pain control with tylenol and tramadol duplex US to rule out DVT in the setting of swelling and redness uric acid level and UA to r/o gout ESR /CRP for infectious source Physical therapy ordered MRI of b/l lower extremities to r/o occult fractures vascular and ortho Code(s): L03.90 - CELLULITIS, UNSPECIFIED Qualifiers: Site of cellulitis: extremity Site of cellulitis of extremity: lower extremity Laterality: left Qualified Code(s): L03.116 - Cellulitis of left lower limb (2) Afib Assessment/Plan: hold coumadin-monitor INR rate controlled Code(s): I48.91 - UNSPECIFIED ATRIAL FIBRILLATION (3) HTN (hypertension) Code(s): I10 - ESSENTIAL (PRIMARY) HYPERTENSION
[2019-02-27] MEDS: CEFAZOLIN 1 GM/D5W 1 GM/50 ML BAG IVPB SCH ×2 (11:01→17:43)
--- NOTE | 2019-02-27 13:28 | EKG ---
Test Reason : Blood Pressure : / mmHG Vent. Rate : 076 BPM Atrial Rate : 076 BPM P-R Int : 156 ms QRS Dur : 086 ms QT Int : 356 ms P-R-T Axes : 048 014 103 degrees QTc Int : 400 ms NORMAL SINUS RHYTHM NONSPECIFIC ST AND T WAVE ABNORMALITY ABNORMAL ECG WHEN COMPARED WITH ECG OF 03-OCT-2018 15:29, VENT. RATE HAS INCREASED Confirmed by DAMON SO MD ([id number]) on 02/27/2019 1:28:21 PM Referred By: Confirmed By:DAMON SO MD
[2019-02-27] MEDS: AMIODARONE HCL 200 MG TABLET (FP) PO SCH (13:40)
[2019-02-27 13:54] LABS: EPI CELLS 1.7 /HPF (0-5/HPF); HYALINE CASTS 3 /lpf (0-8); PH,URINE 6.5 (5.0-8.0); URINE APPEARANCE CLEAR; URINE BACTERIA 5.3 /hpf (NEGATIVE); URINE BILIRUBIN NEGATIVE (NEGATIVE); URINE COLOR YELLOW; URINE GLUCOSE (UA) NEGATIVE (NEGATIVE); URINE KETONE NEGATIVE (NEGATIVE); URINE LEUK ESTERASE TRACE (NEGATIVE); URINE NITRITE NEGATIVE (NEGATIVE); URINE PROTEIN NEGATIVE (NEGATIVE); URINE RBC 2 /hpf (0-4); URINE UROBILINOGEN 0.2 mg/dL (0.2-1.0); URINE WBC 4 /hpf (0-5)
--- NOTE | 2019-02-27 16:06 | CONSULT ---
- Consultation REQUESTING PROVIDER: CONSULT REQUEST: We have been asked to surgically evaluate this patient for left ankle pain. PCP:Tisha Urban HISTORY OF PRESENT ILLNESS: 88 y/o F, pmh of a-fib on coumadin, previous admission in August 2018 for left foot cellulitis, presents to the ED c/o progressive left foot and ankle x1 day that began spontaneously yesterday. The patient states that pain and redness started yesterday afternoon and became progressively worse until she was unable to bear weight on it. She normally ambulates with a cane as needed. She denies any history or gout, new activity or injury associated with the onset. Pt admits to chills associated with onset but denies f//n/v/d/numbness or tingling of the LE, sob, chest pain. She states the last time she had her coumadin level checked was Thursday 02/22 which she states is was therapeutic. Patient noted to have INR of 5.06 upon admission. Past History - Past Medical History Allergies/Adverse Reactions: Allergies Allergy/AdvReac Type Severity Reaction Status Date / Time No Known Drug Allergies Allergy Verified 02/26/19 20:14 Home Medications: Ambulatory Orders Amiodarone HCl [Cordarone -] 200 mg PO DAILY 08/11/18 Warfarin Sodium [Coumadin] 6.5 mg PO DAILY 08/11/18 Anemia: No Asthma: No Cancer: No Cardiac Disorders: Yes (A-Fib, mitral regurgitation) CVA: No COPD: No CHF: No Dementia: No Diabetes: No GI Disorders: Yes (GERD) Disorders: No HTN: No Hypercholesterolemia: No Liver Disease: No Seizures: No Thyroid Disease: No - Surgical History Abdominal Surgery: Yes Appendectomy: Yes (1950s) Cardiac Surgery: Yes (ablation) Cholecystectomy: No Lung Surgery: No Neurologic Surgery: No Orthopedic Surgery: Yes (Hip replacement) - Immunization History Immunization Up to Date: Yes - Psycho Social/Smoking Cessation Hx Smoking Status: Yes Smoking History: Never smoked Have you smoked in the past 12 months: No Number of Cigarettes Smoked Daily: 10 If you are a former smoker, when did you quit?: 01/23 Information on smoking cessation initiated: Yes 'Breaking Loose' booklet given: 12/21/17 Hx Alcohol Use: No Drug/Substance Use Hx: No Substance Use Type: None Hx Substance Use Treatment: No Review of Systems - Review of Systems Able to Perform ROS?: Yes Is the patient limited Swedish proficient: No Constitutional: Yes: Symptoms Reported, Weight Stable. No: Diaphoresis, Fever HEENTM: Yes: Symptoms Reported Respiratory: Yes: Symptoms reported. No: Cough, Shortness of Breath, Wheezing, Productive cough Cardiac (ROS): Yes: Symptoms Reported. No: Chest Pain, Chest Tightness ABD/GI: Yes: Symptoms Reported. No: Diarrhea, Nausea, Vomiting : Yes: Symptoms Reported. No: Dysuria Musculoskeletal: Yes: Symptoms Reported, Joint Pain, Joint Swelling. No: Gout Integumentary: Yes: Symptoms Reported, Change in Color, Erythema Neurological: Yes: Symptoms reported. No: Headache, Numbness, Paresthesia, Tremors, Weakness All Other Systems: Reviewed and Negative *Physical Exam - Vital Signs Vital Signs Period Temp Pulse Resp BP Sys/Lucero Pulse Ox Last 24 Hr 98 F-98.8 F 68-77 17-20 136-157/65-77 94-100 - Physical Exam General Appearance: Yes: Nourished, Appropriately Dressed HEENT: positive: EDA, Normal ENT Inspection, Respiratory/Chest: positive: unlabored resp on RA Vascular Pulses: Dorsalis-Pedis (R): 2+ +1 TP, Doralis-Pedis (L): 2+, +1 TP Musculoskeletal: Left ankle with moderate effusion and foot flexed into plantarflexion 2/2 pain. mild erythema tracking from lateral malleolus proximally over lateral aspect of leg. PROM full with dorsi/plantar flexion although some pain blocking, unable to AROM in dorsiflexion or inversion/ eversion. foot and toes warm and well perfused. B/L LE no lesion or rashes. compartments soft, supple and non-tender Decreased Range of Motion (of the Left LE) Extremity: positive: Swelling, Erythema, Inflammation. negative: Normal Range of Motion, Coldness, Cyanosis, Delayed Capillary Refill, Pedal Edema, Calf Tenderness Integumentary: positive: Warm, Erythema Neurologic: positive: Fully Oriented, Alert, Normal Mood/Affect, Motor Strength 5/5 CBC, BMP 02/27/19 07:17 02/27/19 07:17 INR, PTT INR 5.12 (0.83-1.09) H* 02/27/19 07:17 B/L US Duplex 02/27 No evidence of DVT Problem List - Problems (1) Effusion of ankle joint, left Assessment/Plan: 88yo with left ankle effusion and no indication for vascular intervention. -Continue work op for ankle effusion -Fall risk -Trend INR to theraputic levels - ABX per medicine - Encourage ankle ROM - Ice/elevate left LE above level of heart while in bed. Evaluation and plan discussed with Dr Zarco Code(s): M25.472 - EFFUSION, LEFT ANKLE
--- NOTE | 2019-02-27 18:10 | CONSULT ---
Consult - text type - Consultation Consultation Note: FULL CONSULT DICTATED IMP: GOUT V. CELLULITIS LEFT ANKLE PLAN; ADD ANTI GOUT MEDICATIONS. PATIENT ALREADY ON ABX
--- NOTE | 2019-02-27 18:37 | PN ---
Progress Note (short form) - Note Progress Note: ID CONSULT DICTATED CELLULITIS L LE ? GOUTY ARTHRITIS L ANKLE AWAIT C/S EMPIRIC CEFAZOLIN EMPIRIC TX FOR GOUT
[2019-02-27] MEDS ORDERED: COLCHICINE 0.6 MG CAP PO ONE (19:00)
[2019-02-28] MEDS: CEFAZOLIN 1 GM/D5W 1 GM/50 ML BAG IVPB SCH (03:04)
[2019-02-28 08:27] LABS: BASO % 0.4 % (0-2.0); EOS % 1.1 % (0-4.5); HEMATOCRIT 40.7 % (32.4-45.2); HEMOGLOBIN 13.6 GM/dL (10.7-15.3); LYMPH % 27.5 % (8-40); MCH 31.2 pg (25.7-33.7); MCHC 33.5 g/dl (32.0-36.0); MEAN CELL VOLUME 93.1 fl (80-96); MEAN PLT VOLUME 9.5 fl (7.5-11.1); MONO % 12.9 % (3.8-10.2); NEUT % 58.1 % (42.8-82.8); PLATELET COUNT 198 K/MM3 (134-434); RBC 4.37 M/mm3 (3.60-5.2); RDW 14.3 % (11.6-15.6); WHITE BLOOD COUNT 7.2 K/mm3 (4.0-10.0)
[2019-02-28 08:57] LABS: ALBUMIN 3.4 g/dl (3.4-5.0); BILIRUBIN,TOTAL 2.1 mg/dL (0.2-1); BLOOD UREA NITROGEN 9.6 mg/dL (7-18); CREATININE 0.9 mg/dL (0.55-1.3); POTASSIUM 3.7 mmol/L (3.5-5.1); TOT PROT 6.8 g/dl (6.4-8.2)
[2019-02-28] MEDS: COLCHICINE 0.6 MG CAP PO SCH (09:40)
[2019-02-28] MEDS: AMIODARONE HCL 200 MG TABLET (FP) PO SCH (09:40)
--- NOTE | 2019-02-28 10:46 | PN ---
Progress Note, Physician - Current Medication List Current Medications: Active Medications Acetaminophen (Tylenol -) 650 mg PO Q6H PRN PRN Reason: Fever Or Pain Last Admin: 02/26/19 22:42 Dose: 650 mg Amiodarone HCl (Cordarone -) 200 mg PO DAILY [facility] Last Admin: 02/28/19 09:40 Dose: 200 mg Colchicine (Colcrys) 0.6 mg PO DAILY [facility] Last Admin: 02/28/19 09:40 Dose: 0.6 mg Tramadol HCl (Ultram -) 50 mg PO Q6H PRN PRN Reason: PAIN LEVEL 6-10 - Objective Vital Signs: Vital Signs Temperature 98.1 F 02/28/19 09:41 Pulse Rate 69 02/28/19 09:41 Respiratory Rate 20 02/28/19 09:41 Blood Pressure 139/77 02/28/19 09:41 O2 Sat by Pulse Oximetry (%) 94 L 02/27/19 21:00 Cardiovascular: Yes: Regular Rate and Rhythm Respiratory: Yes: Regular, CTA Bilaterally Gastrointestinal: Yes: Normal Bowel Sounds, Soft. No: Tenderness Labs: CBC, BMP 02/28/19 07:29 02/28/19 07:29 INR, PTT INR 5.12 (0.83-1.09) H* 02/27/19 07:17 Problem List - Problems (1) Cellulitis Assessment/Plan: pt denies any trauma to the area duplex US --ruled out DVT uric acid level noted and discussed with ortho--c/w Gout Physical therapy ordered vascular and ortho noted no abx--Colchicine Code(s): L03.90 - CELLULITIS, UNSPECIFIED Qualifiers: Site of cellulitis: extremity Site of cellulitis of extremity: lower extremity Laterality: left Qualified Code(s): L03.116 - Cellulitis of left lower limb (2) Afib Assessment/Plan: hold coumadin-monitor INR--last one 5 rate controlled Code(s): I48.91 - UNSPECIFIED ATRIAL FIBRILLATION (3) HTN (hypertension) Assessment/Plan: stable Code(s): I10 - ESSENTIAL (PRIMARY) HYPERTENSION
[2019-02-28 12:30] LABS: INR 3.75 (0.83-1.09); PROTHROMBIN TIME (PATIENT) 44.8 SEC (9.7-13.0)
--- NOTE | 2019-02-28 13:18 | PN ---
Progress Note (short form) - Note Progress Note: PATIENT MARKEDLY IMPROVED TODAY MARKEDLY LESS TENDER OVER LEFT ANKLE/FOOT SWELLING AND REDNESS IMPROVED IMP: RESOLVING PROBABLY SECONDARY TO ADMINISTRATION OF COLCHICINE PLAN; DC WHEN OK WITH PMD ON PO MEDS FOR INFECTION AND GOUT
[2019-02-28] MEDS: ACETAMINOPHEN 325 MG TABLET (FP) PO PRN (23:34)
[2019-03-01] MEDS: AMIODARONE HCL 200 MG TABLET (FP) PO SCH (09:33)
[2019-03-01] MEDS: COLCHICINE 0.6 MG CAP PO SCH (09:33)
--- NOTE | 2019-03-01 10:28 | PN ---
Progress Note (short form) - Note Progress Note: CONTINUES TO IMPROVE NOW WITH DIARRHEA PROPABLY SECONDARY TO THE COLCHICINE DC WHEN OK WITH PMD AND DC COLCHICINE AND USE NSAIDS INSTEAD
[2019-03-01] MEDS ORDERED: KETOROLAC TROMETHAMINE 10 MG TABLET PO PRN (12:23)
--- NOTE | 2019-03-01 12:24 | PN ---
Progress Note, Physician Chief Complaint: LLE pain History of Present Illness: NAD in bed pain improved walked in the hallway States her redness and swelling is improved Received 3 doses of cefazolin + colchicine 2 days Seen by Ortho-probably gout- Uric acid is normal? ESR+ CRP normal - Current Medication List Current Medications: Active Medications Acetaminophen (Tylenol -) 650 mg PO Q6H PRN PRN Reason: Fever Or Pain Last Admin: 02/28/19 23:34 Dose: 650 mg Allopurinol (Zyloprim -) 300 mg PO DAILY [facility] Amiodarone HCl (Cordarone -) 200 mg PO DAILY [facility] Last Admin: 03/01/19 09:33 Dose: 200 mg Ketorolac Tromethamine (Toradol) 10 mg PO TID [facility] Stop: 03/06/19 13:59 - Objective Vital Signs: Vital Signs Temperature 98.4 F 03/01/19 10:00 Pulse Rate 68 03/01/19 10:00 Respiratory Rate 20 03/01/19 10:00 Blood Pressure 126/61 03/01/19 10:00 O2 Sat by Pulse Oximetry (%) 96 02/28/19 21:00 Constitutional: Yes: Well Nourished, No Distress, Calm Cardiovascular: Yes: Regular Rate and Rhythm Respiratory: Yes: Regular Gastrointestinal: Yes: Normal Bowel Sounds, Soft Genitourinary: Yes: WNL Musculoskeletal: Yes: Joint Swelling (left ankle) Extremities: Yes: WNL Edema: No Peripheral Pulses WNL: Yes Neurological: Yes: Alert, Oriented Psychiatric: Yes: Alert, Oriented Labs: CBC, BMP 02/28/19 07:29 02/28/19 07:29 INR, PTT INR 3.75 (0.83-1.09) H 02/28/19 11:30 Assessment/Plan (1) Cellulitis Assessment/Plan: -duplex US --ruled out DVT -uric acid normal -Pt self ambulatory -vascular consult -Orthopedic consult -D/C colchicine 2/2 to diarrhea -Start toradol 10 mg po TID PRN -Start allopurinol 300 mg po daily Code(s): L03.90 - CELLULITIS, UNSPECIFIED Qualifiers: Site of cellulitis: extremity Site of cellulitis of extremity: lower extremity Laterality: left Qualified Code(s): L03.116 - Cellulitis of left lower limb (2) Afib Assessment/Plan: -Coumadin on hold -Check daily INR -rate controlled, chronic Code(s): I48.91 - UNSPECIFIED ATRIAL FIBRILLATION (3) HTN (hypertension) Assessment/Plan: -stable Code(s): I10 - ESSENTIAL (PRIMARY) HYPERTENSION
[2019-03-01] MEDS ORDERED: KETOROLAC TROMETHAMINE 10 MG TABLET PO SCH (14:00)
[2019-03-01 16:11] LABS: INR 2.44 (0.83-1.09)
[2019-03-02] MEDS: ALLOPURINOL 300 MG TABLET (FP) PO SCH (09:09)
[2019-03-02] MEDS: AMIODARONE HCL 200 MG TABLET (FP) PO SCH (09:09)
[2019-03-02 09:34] LABS: INR 1.95 (0.83-1.09); PROTHROMBIN TIME (PATIENT) 23.2 SEC (9.7-13.0)
--- NOTE | 2019-03-02 09:39 | PN ---
Progress Note, Physician - Current Medication List Current Medications: Active Medications Acetaminophen (Tylenol -) 650 mg PO Q6H PRN PRN Reason: Fever Or Pain Last Admin: 02/28/19 23:34 Dose: 650 mg Allopurinol (Zyloprim -) 300 mg PO DAILY [facility] Last Admin: 03/02/19 09:09 Dose: 300 mg Amiodarone HCl (Cordarone -) 200 mg PO DAILY [facility] Last Admin: 03/02/19 09:09 Dose: 200 mg Ketorolac Tromethamine (Toradol) 10 mg PO TID PRN PRN Reason: PAIN LEVEL 6-10 Stop: 03/06/19 13:59 Warfarin Sodium (Coumadin -) 5 mg PO DAILY@1800 [facility] - Objective Vital Signs: Vital Signs Temperature 97.4 F L 03/02/19 07:50 Pulse Rate 72 03/02/19 07:50 Respiratory Rate 15 03/02/19 07:50 Blood Pressure 155/63 03/02/19 07:50 O2 Sat by Pulse Oximetry (%) 96 03/01/19 21:00 Cardiovascular: Yes: Regular Rate and Rhythm Respiratory: Yes: Regular, CTA Bilaterally Gastrointestinal: Yes: Normal Bowel Sounds, Soft Labs: CBC, BMP 02/28/19 07:29 02/28/19 07:29 INR, PTT INR 1.95 (0.83-1.09) H 03/02/19 07:25 Problem List - Problems (1) Cellulitis Assessment/Plan: pt denies any trauma to the area duplex US --ruled out DVT uric acid level noted and discussed with ortho--c/w Gout Physical therapy ordered vascular and ortho noted no abx--Colchicine -Orthopedic consult noted -OFF colchicine 2/2 to diarrhea -ON toradol 10 mg po TID PRN -ON allopurinol 300 mg po daily Code(s): L03.90 - CELLULITIS, UNSPECIFIED Qualifiers: Site of cellulitis: extremity Site of cellulitis of extremity: lower extremity Laterality: left Qualified Code(s): L03.116 - Cellulitis of left lower limb (2) Afib Assessment/Plan: coumadin-per inr monitor INR-- rate controlled Code(s): I48.91 - UNSPECIFIED ATRIAL FIBRILLATION (3) HTN (hypertension) Assessment/Plan: stable Code(s): I10 - ESSENTIAL (PRIMARY) HYPERTENSION (4) Weakness Assessment/Plan: due to foot pain pt--deciding on snf vs home with services Code(s): R53.1 - WEAKNESS
--- NOTE | 2019-03-02 14:54 | PN ---
Progress Note (short form) - Note Progress Note: markedly improved DC and F/U my office X 2 weeks
[2019-03-02] MEDS ORDERED: WARFARIN NA 5 MG TABLET (UD) PO SCH (18:00)
--- NOTE | 2019-03-03 08:19 | DS ---
Physical Examination Vital Signs: Vital Signs Temperature 98 F 03/03/19 05:56 Pulse Rate 68 03/03/19 05:56 Respiratory Rate 20 03/03/19 05:56 Blood Pressure 136/82 03/03/19 05:56 O2 Sat by Pulse Oximetry (%) 96 03/02/19 21:00 Cardiovascular: Yes: S1, S2 Respiratory: Yes: Regular, CTA Bilaterally Gastrointestinal: Yes: Normal Bowel Sounds, Soft Edema: No Labs: CBC, BMP 02/28/19 07:29 02/28/19 07:29 Discharge Summary Problems reviewed: Yes Reason For Visit: CELLULITIS,FOOT PAIN,UNABLE TO WALK Current Active Problems Cellulitis (Acute) Effusion of ankle joint, left (Acute) Hospital Course: (1) Cellulitis Assessment/Plan: -duplex US --ruled out DVT -uric acid normal -Pt self ambulatory -vascular consult -Orthopedic consult--C/W Gout -D/C colchicine 2/ to diarrhea -Start toradol 10 mg po TID PRN -Start allopurinol 300 mg po daily Code(s): L03.90 - CELLULITIS, UNSPECIFIED Qualifiers: Site of cellulitis: extremity Site of cellulitis of extremity: lower extremity Laterality: left Qualified Code(s): L03.116 - Cellulitis of left lower limb (2) Afib Assessment/Plan: -Coumadin on hold -Check daily INR -rate controlled, chronic Code(s): I48.91 - UNSPECIFIED ATRIAL FIBRILLATION (3) HTN (hypertension) Assessment/Plan: -stable Code(s): I10 - ESSENTIAL (PRIMARY) HYPERTENSION Condition: Stable - Instructions Diet, Activity, Other Instructions: see dr mayen on Wednesday for blood test to check on coumadin Referrals: Tisha Mayen MD [Staff Physician] - 03/06/19 Disposition: HOME - Home Medications Comprehensive Discharge Medication List: Ambulatory Orders Amiodarone HCl [Cordarone -] 200 mg PO DAILY 08/11/18 Acetaminophen [Tylenol .Regular Strength -] 650 mg PO Q6H PRN tablet 03/03/19 Allopurinol [Zyloprim -] 300 mg PO DAILY #30 tablet 03/03/19 Warfarin Na [Coumadin -] 5 mg PO DAILY@1800 #30 tablet 03/03/19
[2019-03-03] MEDS: ALLOPURINOL 300 MG TABLET (FP) PO SCH (09:16)
[2019-03-03] MEDS: AMIODARONE HCL 200 MG TABLET (FP) PO SCH (09:16)
[2019-03-03 09:32] LABS: INR 2.13 (0.83-1.09); PROTHROMBIN TIME (PATIENT) 25.3 SEC (9.7-13.0)
[2019-03-03 10:29] VITALS: BP 145/61; PULSE 70; TEMP 98.6
--- NOTE | 2019-03-03 19:00 | CONS ---
ORTHOPEDIC CONSULTATION/[facility] DATE OF CONSULTATION: 02/27/2019 Patient is an 88-year-old female who was admitted with an atraumatic pain and swelling and redness of her left ankle. Patient is well known to me. I had done a right total hip replacement on her years before. Patient denies any history of gout. Upon admission, patient's white count was 8.6, and today, it was 6.2. Chemistry of significance is a uric acid of 2.9 and a C-reactive protein of 3.5. Sedimentation rate is only 23 and 18 and two different draws while in the hospital today. Patient was placed on IV Kefzol by the PMD for presumptive cellulitis. PHYSICAL EXAMINATION: Patient has a very sensitive ankle, mostly on the lateral side, less so on the medial side with some blanching erythema. No lymphangitis. Excellent range of motion of the left hip, knee, ankle, and toes, but increased pain with any slight touch on the lateral side of the ankle and foot. No tenderness on the medial side at all. Negative Metzger sign. Negative Homans sign. X-rays of the left foot and ankle show no fracture-dislocation, lesions. IMPRESSION: Gout versus cellulitis, right ankle. As patient is already on IV antibiotics, I would recommend adding anti-gout medicine, i.e. colchicine versus NSAIDs versus both. I have been in contact with the PMD, Dr. Hager, who will take this under advisement and probably add colchicine to the mix. I will follow the patient daily to see how the patient responds. BERE LOPEZ M.D. [id number]
== END 2019-03-03 12:17 | disposition home health service (06) | DRG 603 ==
LOC: JERFT 20:06 → JERBED 02-27 03:12 → J6S 02-27 04:36
PROVIDERS: ADMIT Internal Medicine; ATTEND Family Medicine
DX: L03.116 Cellulitis of left lower limb (principal); I10 Essential (primary) hypertension; I48.91 Unspecified atrial fibrillation; J44.9 Chronic obstructive pulmonary disease, unspecified; I34.0 Nonrheumatic mitral (valve) insufficiency; M25.472 Effusion, left ankle; M19.072 Primary osteoarthritis, left ankle and foot; R19.7 Diarrhea, unspecified; M10.9 Gout, unspecified; K21.9 Gastro-esophageal reflux disease without esophagitis
CPT/HCPCS: 36415; 73610-TC-LT-FY; 73630-TC-LT; 80053; 81003; 83605; 83735; 84100; 84550; 85025; 85610; 85651; 86140; 93005; 93010; 93970-TC; 97116-GP; 97161-GP; 99283-25

== ENCOUNTER 2019-04-30 10:48 | Inpatient (IN) | payer OTHER, MEDICARE ==
[2019-04-30 10:58] VITALS: BMI 23.2
--- NOTE | 2019-04-30 11:11 | PDOC ---
History of Present Illness - General Chief Complaint: Weakness Stated Complaint: RT EAR BLEEDING Time Seen by Provider: 04/30/19 11:11 History Source: Patient Exam Limitations: No Limitations - History of Present Illness Initial Comments: 88 year old female with PMH HTN, atrial fibrillation on Coumadin s/p ablation, presented to ED for bleeding from right ear since last night. Pt reported that she fell x4 days ago. She reported she felt her bilateral lower extremities were generally weak, causing her to fall to the ground, hitting her back on the recliner on the way down. She denied prodromal symptoms, chest pain, shortness of breath, LOC, lightheadedness, vomiting, head injury. She reported she had a Lumbar spine X-ray performed the next day, ordered by her PCP Dr. Urban, which reported she figured was normal because she wasnt called about the results. Pt reported she feels her hearing is impaired on the right side. Pt admitted to continued low right sided back pain. ROS General: denied fever, chills, generalized weakness. HEENT: admitted to bleeding from right ear, hearing loss. denied sore throat, rhinorrhea, ear pain. Cardiovascular: denied chest pain, palpitations, syncope, diaphoresis. Respiratory: denied shortness of breath, cough, sputum production, hemoptysis. Gastrointestinal: denied abdominal pain, nausea, vomiting, diarrhea, constipation, blood in stool. Genitourinary: denied dysuria, increased urinary frequency, hematuria, urinary incontinence, flank pain. Back: denied back pain. Musculoskeletal: denied joint pain, muscle pain, joint swelling. Neurological: denied headache, dizziness, numbness, tingling, weakness. Integumentary: denied rash, laceration, abrasion. Hematologic/Lymphatic: denied bruising or bleeding. PE Constitutional: Well-nourished, Well-developed, appearing stated age. Airway: intact Breathing: bilateral breath sounds Circulation: 2+ carotid pulse B/L HEENT: right TM ruptured with tavares blood in the external ear canal. no mastoid tenderness bilaterally. head is normocephalic, atraumatic. No facial bones tenderness to palpation. No thomson sign. No raccoon eyes. EOMI. PERRLA. Neck: supple. Full ROM. no midline c-spine tenderness to palpation. No step offs. Cardiovascular: irregularly irregular heart rhythm. no murmurs. no pericardial friction rub. Chest wall: no seatbelt sign. No tenderness to palpation of anterior chest wall. No deformity to anterior chest wall. Respiratory: clear to auscultation bilaterally. no crackles, rhonchi or wheezing. no stridor. Gastrointestinal: soft, nontender. normal bowel sounds. no rebound, guarding, masses. No ecchymoses. Back: no midline T-spine or L-spine tenderness to palpation. No step offs. no low back tenderness to palpation. Pelvis: lower extremities equal in length without external rotation. No hip tenderness to palpation. Extremities: peripheral pulses intact. no lower extremity edema. Neurological: CN 2-12 grossly intact. moves all four extremities. Psych: awake, alert, oriented x3. follows commands. answers questions appropriately. Past History - Past Medical History Allergies/Adverse Reactions: Allergies Allergy/AdvReac Type Severity Reaction Status Date / Time No Known Drug Allergies Allergy Verified 04/30/19 10:58 Home Medications: Ambulatory Orders Acetaminophen [Tylenol .Regular Strength -] 650 mg PO Q6H PRN tablet 03/03/19 Warfarin Na [Coumadin -] 5.5 mg PO DAILY@1800 04/30/19 - Surgical History Orthopedic Surgery: Yes (Hip replacement) - Immunization History Immunization Up to Date: Yes - Psycho Social/Smoking Cessation Hx Smoking Status: Yes Smoking History: Never smoked Have you smoked in the past 12 months: No Number of Cigarettes Smoked Daily: 10 If you are a former smoker, when did you quit?: 01/23 'Breaking Loose' booklet given: 12/21/17 Hx Alcohol Use: No Drug/Substance Use Hx: No Substance Use Type: None Hx Substance Use Treatment: No *Physical Exam - Vital Signs Last Vital Signs Temp Pulse Resp BP Pulse Ox 99.4 F 136 H 18 94/53 L 95 04/30/19 10:54 04/30/19 10:54 04/30/19 10:54 04/30/19 10:54 04/30/19 10:54 ED Treatment Course - LABORATORY CBC & Chemistry Diagram: 05/02/19 06:15 05/02/19 06:15 Medical Decision Making - Medical Decision Making 88 year old female with above PMH presented to ED for bleeding from right ear since last night associated with right sided hearing loss, recently mechanical fall x4 days ago. Initial Vital Signs Temp Pulse Resp BP Pulse Ox 99.4 F 136 H 18 94/53 L 95 04/30/19 10:54 04/30/19 10:54 04/30/19 10:54 04/30/19 10:54 04/30/19 10:54 Afebrile. Tachycardic. No tachypnea. Hypotensive. No hypoxia on room air. Vital Signs Temperature 101.6 F H 04/30/19 11:40 Rectally febrile. Labs ordered: CBC, CMP, troponin, coags, type and screen, blood cultures, lactate Imaging ordered: CXR, Pelvis XR, CT head, CT cervical spine, CT lumbar spine Medications ordered: normal saline bolus 500 cc once, tylenol IV EKG performed at 1105: rate 134, regular rhythm, normal axis, normal intervals, QTc 480, no acute ST changes. 04/30/19 13:08 Laboratory Last Values WBC 13.2 K/mm3 (4.0-10.0) H 04/30/19 11:50 RBC 4.36 M/mm3 (3.60-5.2) 04/30/19 11:50 Hgb 13.5 GM/dL (10.7-15.3) 04/30/19 11:50 Hct 40.2 % (32.4-45.2) 04/30/19 11:50 MCV 92.2 fl (80-96) 04/30/19 11:50 MCH 31.1 pg (25.7-33.7) 04/30/19 11:50 MCHC 33.7 g/dl (32.0-36.0) 04/30/19 11:50 RDW 13.8 % (11.6-15.6) 04/30/19 11:50 Plt Count 234 K/MM3 (134-434) 04/30/19 11:50 MPV 9.1 fl (7.5-11.1) 04/30/19 11:50 Absolute Neuts (auto) 11.0 K/mm3 (1.5-8.0) H 04/30/19 11:50 Neutrophils % 82.9 % (42.8-82.8) H D 04/30/19 11:50 Lymphocytes % 7.7 % (8-40) L D 04/30/19 11:50 Monocytes % 9.2 % (3.8-10.2) 04/30/19 11:50 Eosinophils % 0.0 % (0-4.5) D 04/30/19 11:50 Basophils % 0.2 % (0-2.0) 04/30/19 11:50 Nucleated RBC % 0 % (0-0) 04/30/19 11:50 PT with INR 47.50 SEC (9.7-13.0) H 04/30/19 11:50 INR 3.97 (0.83-1.09) H 04/30/19 11:50 PTT (Actin FS) 53.3 SECONDS (25.2-36.5) H 04/30/19 11:50 VBG pH 7.42 (7.31-7.41) H 04/30/19 14:20 POC VBG pCO2 32.9 mmHg (38-52) L 04/30/19 14:20 POC VBG pO2 59.7 mmHg (28-48) H 04/30/19 14:20 VBG HCO3 20.8 mmol/L (23-29) L 04/30/19 14:20 VBG O2 Sat (Brianda) 89.1 % (70-80) H 04/30/19 14:20 VBG Base Excess -2.3 meq/l (-2-2) L 04/30/19 14:20 Sodium 134 mmol/L (136-145) L 04/30/19 11:50 Potassium 3.5 mmol/L (3.5-5.1) 04/30/19 11:50 Chloride 102 mmol/L (98-107) 04/30/19 11:50 Carbon Dioxide 23 mmol/L (21-32) 04/30/19 11:50 Anion Gap 10 MMOL/L (8-16) 04/30/19 11:50 BUN 12.3 mg/dL (7-18) 04/30/19 11:50 Creatinine 0.9 mg/dL (0.55-1.3) 04/30/19 11:50 Est GFR (CKD-EPI)AfAm 66.63 04/30/19 11:50 Est GFR (CKD-EPI)NonAf 57.49 04/30/19 11:50 Random Glucose 101 mg/dL (74-106) 04/30/19 11:50 Calcium 8.7 mg/dL (8.5-10.1) 04/30/19 11:50 Total Bilirubin 2.0 mg/dL (0.2-1) H 04/30/19 11:50 AST 22 U/L (15-37) 04/30/19 11:50 ALT 17 U/L (13-61) 04/30/19 11:50 Alkaline Phosphatase 125 U/L (45-117) H 04/30/19 11:50 Troponin I 0.04 ng/ml (0.00-0.05) 04/30/19 11:50 Total Protein 7.1 g/dl (6.4-8.2) 04/30/19 11:50 Albumin 3.3 g/dl (3.4-5.0) L 04/30/19 11:50 Blood Type O POSITIVE 04/30/19 11:50 Antibody Screen Negative 04/30/19 11:50 No leukocytosis No anemia No electrolyte abnormalities No KAVON Supratherapeutic INR - on Coumadin Mixed metabolic and respiratory alkalosis. 04/30/19 13:19 Vital Signs Temperature 98.3 F 04/30/19 13:15 Pulse Rate 108 H 04/30/19 13:00 Respiratory Rate 18 04/30/19 13:00 Blood Pressure 102/80 04/30/19 13:00 O2 Sat by Pulse Oximetry (%) 94 L 04/30/19 13:00 Fever improved with Tylenol Hypotension improved with 500 cc bolus -Additional fluids ordered 04/30/19 13:22 CXR report: Name: [facility] DEPARTMENT OF RADIOLOGY Phys: Mary Jordan RESIDENT : 1930 Age: 88 Sex: F [facility] Acct: [id number] Loc: [address] Exam Date: 04/30/19 Status: [facility] [place] [address] Unit Number: [id number] EXAM#: TYPE/EXAM: RESULT: [id number] RAD/CHEST X-RAY PORTABLE* Portable chest: Fall. Pain. Single AP view of the chest has been submitted. Since the prior exam of 10/03/2018, there is no change of an adverse nature. There is an enlarged heart, unfolded aorta, normal ronaldo and clear lung gray. Angles are sharp. The soft tissues are intact with an elevated left hemidiaphragm. Significant arthritic changes are not seen. There is no sign of a gross fracture. Impression: No acute chest pathology. No significant change since 10/03. Large heart. Clear lungs. Elevated left hemidiaphragm. Reported By: Rogelio Rueda MD 04/30/19 1321 04/30/19 14:33 CT head report: Name: [facility] RADIOLOGY Phys: Mary Jordan RESIDENT : 1930 Age: 88 Sex: F [facility] Acct: [id number] Loc: [address] Exam Date: 04/30/19 Status: [place] [address] Unit Number: [id number] EXAM#: TYPE/EXAM: RESULT: CT/HEAD CT WITHOUT CONTRAST CT brain without contrast Trauma with fall Clinical history: Ruptured tympanic membrane with bleeding from right ear with fall Wednesday Axial imaging completed demonstrating fluid/blood in the right mastoid air cells. No definite fracture is seen on 3 mm thin axial sections. Symmetry of the internal auditory canals with no fracture through the skull identified. No CT evidence of mass, hemorrhage or acute vascular territory infarction brain Impression: No acute intracranial hemorrhage in the brain. Fluid in the right mastoid air cells likely related to blood, 3 mm thin axial and coronal sections including sagittal sections demonstrating no definite fracture line, clinical correlation. Reported By: Sachin Frias MD 04/30/[address] cervical spine report: Name: [facility] DEPARTMENT OF RADIOLOGY Phys: Mary Jordan RESIDENT : 1930 Age: 88 Sex: F [facility] Acct: [id number] Loc: [facility] [address] [place] [address] Exam Date: 04/30/19 Status: [facility] [place] [address] Unit Number: [id number] ACCESSION # : [id number] EXAM#: TYPE/EXAM: RESULT: CT/CERVICAL SPINE CT W/O CONTR CT cervical spine without contrast Trauma with fall, fever ruptured tympanic membrane with bleeding Axial imaging completed with coronal and sagittal reformations. Fluid in the right mastoid air cells noted with no definite fracture identified. Symmetry of the internal auditory canals with no fracture through the skull base was cervical vertebra including posterior lamina , spinous processes and thoracic inlet No pneumothorax in the lung apices. No subcutaneous emphysema identified. Fluid/blood in the right mastoid air cells No signs of disc herniation identified Normal odontoid process and base of C2 including posterior lamina 2 mm thin sections which included the mastoid air cells do not show obvious fracture through the mastoid air cells. No jumped facet. No fracture in the cervical vertebral bodies with degenerative disc disease noted. Degenerative cervical spondylosis C2/C3 level, C5/C6 and C6/C7 level with anterolisthesis C4 anterior to C5 likely on the basis of degenerative spondylosis, no fractures in the region are seen. No definite signs of disc herniation. Impression: Degenerative cervical spondylosis with no signs of acute fracture in the cervical vertebral bodies. Reported By: Sachin Frias MD 04/30/19 1426 04/30/19 14:46 Vital Signs Pulse Rate 100 H 04/30/19 14:30 Respiratory Rate 19 04/30/19 14:30 Blood Pressure 108/73 04/30/19 14:30 O2 Sat by Pulse Oximetry (%) 96 04/30/19 14:30 04/30/19 15:24 CT facial bones report: Name: [facility] DEPARTMENT OF RADIOLOGY Phys: Mary Jordan RESIDENT : 1930 Age: 88 Sex: F [facility] Acct : [id number] Loc: [address] Exam Date: 04/30/19 Status: [facility] [place] [address] Unit Number: [id number] EXAM#: TYPE/EXAM: RESULT: [id number] CT/FACIAL BONES CT WITH CONTRAST CT facial bones with contrast Trauma with fall and bleeding from the right ear due to ruptured tympanic membrane Evaluation for mastoiditis Axial imaging with coronal and sagittal reformations after bolus injection 100 cc Omnipaque 350 with a power injector No fractures through the mandible or maxilla with 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 No fracture through the nasal septum or nasal bone including sinus melo with normal visualization of the orbits with no retrobulbar hematoma. No enhancing lesions in the visualized brain parenchyma Asymmetrical opacification of right mastoid air cells consistent with history of bleeding. No disruption of the ossicles in the middle ear. Cerumen/blood in the external auditory meatus as the patient has history of bleeding. The internal auditory canals are symmetric and there is no signs of fracture or bone destruction on 2 mm thin bone windows. The right mastoid air cells are not as well pneumatized as the normally pneumatized left mastoid air cells consistent with a component of mastoid inflammation as suspected clinically which could be due to blood in the mastoid air cells. No fracture , no signs of osteomyelitis or bone destruction. The soft tissue windows do not show any enhancing soft tissue masses at the level of the parotid gland and subcutaneous soft tissues with no subcutaneous abscess or significant cellulitis identified radiographically. Normal position of the right condylar head in the right temporomandibular fossa. 2 mm thin coronal sections show normal appearance of the ossicles and scutum with no disruption of the scutum and no significant inflammatory change in the bones. Fluid could represent mastoid inflammation or blood. Impression: CT imaging through the facial bones completed with normal appearance of the submandibular and parotid glands. No inflammatory cellulitis or superficial abscess is seen with normal orbits and sinuses and no suspicious enhancement in the brain parenchyma Normal appearance of the external auditory meatus and external soft tissues with no obvious enhancing abscess. Fluid within the mastoid air cells on the right side consistent with acute mastoiditis , fluid in the external/internal auditory meatus to the level of the tympanic membrane consistent with history of bleeding and inflammation. The ossicles appear intact , no destructive erosive changes in the scutum or adjacent bone in this region on the bone windows with 2 mm thin sections. Normal appearance of the semicircular canals and internal auditory canal. Reported By: Sachin Frias MD 04/30/19 1511 Pelvis XR my view: no acute fracture/dislocation. right hip replacement. -Pending official report Pt has acute mastoiditis. Medications ordered: Vancomycin, Ceftriaxone Signout given to URSZULA Nevarez, admitted to [facility]'s service. Discharge - Discharge Information Problems reviewed: Yes Clinical Impression/Diagnosis: Mastoiditis, Ruptured tympanic membrane, Supratherapeutic INR Condition: Stable - Admission Yes - Follow up/Referral - Patient Discharge Instructions - Post Discharge Activity
[2019-04-30] MEDS ORDERED: ACETAMINOPHEN 1000 MG/100 ML VIAL (NON FORMULARY) IVPB ONE (11:30)
[2019-04-30] MEDS ORDERED: SODIUM CHLORIDE 500 ML IV STA (11:30)
--- NOTE | 2019-04-30 11:30 | PDOC ---
Attending Attestation - Resident Resident Name: Mary Jordan - ED Attending Attestation I have performed the following: I have examined & evaluated the patient, The case was reviewed & discussed with the resident, I agree w/resident's findings & plan, Exceptions are as noted - HPI HPI: 04/30/19 12:02 88-year-old female history of hypertension, A. fib on Coumadin presenting with complaint of her right ear and difficulty hearing since last night. The patient denies any associated headache, ear pain, sore throat, nasal congestion. The patient does endorse having a mild cough last Wednesday which is since improved substantially. she also endorsed feeling little bit warm yesterday. The patient endorses feeling a little bit weak which led to her falling on her back, striking her pelvis on a recliner, she did go to her primary care doctor and was referred for an outpatient x-ray on . The patient denies any head injury or LOC with her fall. patient states that she was doing well until yesterday when she was having difficulty hearing from her right ear while speaking on the phone, this morning when she woke up she noted that there was a substantial amount of blood on her pillow so she came for evaluation. Son also notes that the patient appears to have pinkeye and some crusting on her left eye today she denies any vision changes. Patient denies any other symptoms including changes to her dose of Coumadin, chest pain, palpitations, shortness of breath, dyspnea on exertion, nausea, vomiting, abdominal pain, neck pain, headache, leg swelling, calf pain. - Physicial Exam PE: 04/30/19 12:06 GENERAL: The patient is awake, alert, and fully oriented, Nontoxic - in no acute distress. HEAD: Normocephalic, atraumatic. EYES: extraocular movements intact, sclera anicteric, conjunctivitis on the left eye ENT: Normal voice, oozing blood in her right ear, unable to visualize the TM. No mastoid tenderness, no tenderness anywhere in the cervical spine, negative thomson sign NECK: Normal range of motion, supple, no focal tenderness LUNGS: Breath sounds equal, clear to auscultation bilaterally. No wheezes, no rhonchi, no rales. HEART: Tachycardic, normal S1 and S2 without murmur, rub or gallop. ABDOMEN: Soft, nontender, No guarding, no rebound. No CVA tenderness EXTREMITIES: Normal range of motion, no edema. NEUROLOGICAL: No facial assymetry, Normal speech, moving all 4 extremities spontaneously and symmetrically PSYCH: Normal mood, normal affect. SKIN: Hot to touch, Dry, normal turgor, - Medical Decision Making 04/30/19 12:07 Upon arrival the patient was noted to be tachycardic to 130s, her blood pressure was soft at 90s over 50s. I suspect her tachycardia may be secondary to fever. May be secondary to infection. Will obtain a CT of the patient's head and facial bones to evaluate for possible source of infection in her mastoid/ear. We will also obtain a chest x- ray to rule out a pneumonia. We will treat the patient's fever with Tylenol and then will reassess her heart rate. We will give the patient gentle fluids hydration and will reassess her blood pressure She is otherwise well-appearing, no distress no clinical signs of acute mastoiditis or meningitis, acute cervical fracture. Patient also appears to have a conjunctivitis in her left eye 04/30/19 13:19 With fluid hydration and acetaminophen the patient's heart rate has improved to 108 and her blood pressure is also improved to 102/[address] 04/30/19 15:[address] cw msatoiditis will treat with vancomycin and zosyn natalya moira Urban regarding admission.
[2019-04-30] MEDS ORDERED: ACETAMINOPHEN INJECTION 100 ML IVPB ONE (11:53)
[2019-04-30 12:20] LABS: BASO % 0.2 % (0-2.0); HEMATOCRIT 40.2 % (32.4-45.2); HEMOGLOBIN 13.5 GM/dL (10.7-15.3); LYMPH % 7.7 % (8-40); MCH 31.1 pg (25.7-33.7); MCHC 33.7 g/dl (32.0-36.0); MEAN CELL VOLUME 92.2 fl (80-96); MEAN PLT VOLUME 9.1 fl (7.5-11.1); MONO % 9.2 % (3.8-10.2); NEUT % 82.9 % (42.8-82.8); PLATELET COUNT 234 K/MM3 (134-434); RBC 4.36 M/mm3 (3.60-5.2); RDW 13.8 % (11.6-15.6); WHITE BLOOD COUNT 13.2 K/mm3 (4.0-10.0)
[2019-04-30 12:33] LABS: INR 3.97 (0.83-1.09); PROTHROMBIN TIME (PATIENT) 47.5 SEC (9.7-13.0)
[2019-04-30 12:35] LABS: ACTIVATED PTT 53.3 SECONDS (25.2-36.5)
[2019-04-30 12:47] LABS: ALBUMIN 3.3 g/dl (3.4-5.0); BLOOD UREA NITROGEN 12.3 mg/dL (7-18); CALCIUM 8.7 mg/dL (8.5-10.1); CREATININE 0.9 mg/dL (0.55-1.3); POTASSIUM 3.5 mmol/L (3.5-5.1); TOT PROT 7.1 g/dl (6.4-8.2)
[2019-04-30] MEDS ORDERED: SODIUM CHLORIDE 1,728 ML IV ONE (13:21)
[2019-04-30 14:49] LABS: VENOUS PH 7.42 (7.31-7.41)
[2019-04-30 14:50] LABS: VENOUS PC02 32.9 mmHg (38-52); VENOUS PO2 59.7 mmHg (28-48)
[2019-04-30] MEDS ORDERED: VANCOMYCIN 1,000 MG in DEXTROSE 5%-WATER - 250 ML IVPB ONE (15:24)
[2019-04-30] MEDS ORDERED: PIPERACILLIN/TAZOB 4.5 GM 4.5 GM in DEXTROSE 5%-WATER 100 ML IVPB ONE (15:25)
[2019-04-30] MEDS ORDERED: PIPERACILLIN/TAZOB 4.5 GM 4.5 GM/100 ML BAG IVPB ONE (15:50)
[2019-04-30] MEDS ORDERED: VANCOMYCIN 1 GRAM (PRE-DOCKED) 1,000 MG/250 ML BAG IVPB ONE (17:26)
[2019-04-30] MEDS ORDERED: ACETAMINOPHEN 325 MG TABLET (FP) ONE (19:44)
[2019-04-30] MEDS: ACETAMINOPHEN 325 MG TABLET (FP) PO PRN (19:48)
[2019-04-30 20:04] LABS: URINE APPEARANCE CLEAR; URINE BILIRUBIN NEGATIVE (NEGATIVE); URINE COLOR YELLOW; URINE GLUCOSE (UA) NEGATIVE (NEGATIVE); URINE KETONE NEGATIVE (NEGATIVE)
[2019-04-30 20:05] LABS: PH,URINE 5.5 (5.0-8.0)
[2019-04-30 20:06] LABS: EPI CELLS 2.5 /HPF (0-5/HPF); HYALINE CASTS 3.34 /lpf (0-8); URINE BACTERIA 7.2 /hpf (NEGATIVE); URINE LEUK ESTERASE NEGATIVE (NEGATIVE); URINE NITRITE NEGATIVE (NEGATIVE); URINE PROTEIN TRACE (NEGATIVE); URINE RBC 2.9 /hpf (0-4); URINE WBC 8.6 /hpf (0-5)
[2019-05-01 09:26] LABS: BASO % 0.2 % (0-2.0); EOS % 0.2 % (0-4.5); HEMATOCRIT 37.8 % (32.4-45.2); HEMOGLOBIN 12.6 GM/dL (10.7-15.3); LYMPH % 6.1 % (8-40); MCH 30.9 pg (25.7-33.7); MCHC 33.3 g/dl (32.0-36.0); MEAN CELL VOLUME 92.7 fl (80-96); MEAN PLT VOLUME 8.9 fl (7.5-11.1); MONO % 8.2 % (3.8-10.2); NEUT % 85.3 % (42.8-82.8); PLATELET COUNT 222 K/MM3 (134-434); RBC 4.07 M/mm3 (3.60-5.2); RDW 13.8 % (11.6-15.6); WHITE BLOOD COUNT 12.8 K/mm3 (4.0-10.0)
--- NOTE | 2019-05-01 09:31 | HP ---
Admitting History and Physical - Past Medical History Cardiovascular: Yes: AFIB, HTN, Hyperlipdemia Gastrointestinal: Yes: GERD - Past Surgical History Past Surgical History: Yes: Joint Replacement - Smoking History Smoking history: Never smoked Have you smoked in the past 12 months: No Aproximately how many cigarettes per day: 10 If you are a former smoker, when did you quit?: 01/23 - Alcohol/Substance Use Hx Alcohol Use: No - Social History ADL: Independent History of Recent Travel: No Home Medications - Allergies Allergies/Adverse Reactions: Allergies Allergy/AdvReac Type Severity Reaction Status Date / Time No Known Drug Allergies Allergy Verified 04/30/19 10:58 - Home Medications Home Medications: Ambulatory Orders Acetaminophen [Tylenol .Regular Strength -] 650 mg PO Q6H PRN tablet 03/03/19 Warfarin Na [Coumadin -] 5.5 mg PO DAILY@1800 04/30/19 Physical Examination Vital Signs: Vital Signs Temperature 98.4 F 05/01/19 01:00 Pulse Rate 108 H 05/01/19 05:46 Respiratory Rate 18 05/01/19 05:46 Blood Pressure 126/62 05/01/19 05:46 O2 Sat by Pulse Oximetry (%) 90 L 05/01/19 05:46 Eyes: Yes: Tearing, Other (redness and dischaarge) HENT: Yes: Other (bleeding from right ear) Cardiovascular: Yes: S1, S2 Respiratory: Yes: Regular, CTA Bilaterally Gastrointestinal: Yes: Normal Bowel Sounds, Soft Labs: CBC, BMP 05/01/19 08:48 Problem List - Problems (1) Mastoiditis Assessment/Plan: IV ABX ID CONSULT FOLLOW LABS Code(s): H70.90 - UNSPECIFIED MASTOIDITIS, UNSPECIFIED EAR (2) Ruptured tympanic membrane Assessment/Plan: ENT CONSULT Code(s): H72.90 - UNSP PERFORATION OF TYMPANIC MEMBRANE, UNSPECIFIED EAR (3) Conjunctivitis Assessment/Plan: OPTH DROPS OPTH CONSULT Code(s): H10.9 - UNSPECIFIED CONJUNCTIVITIS (4) Supratherapeutic INR Assessment/Plan: HOLD COUMADIN MONITOR INR Code(s): R79.1 - ABNORMAL COAGULATION PROFILE (5) Afib Assessment/Plan: START METOPROLOL EKG CARDIO Code(s): I48.91 - UNSPECIFIED ATRIAL FIBRILLATION
--- NOTE | 2019-05-01 09:32 | EKG ---
Test Reason : Blood Pressure : / mmHG Vent. Rate : 134 BPM Atrial Rate : 134 BPM P-R Int : 130 ms QRS Dur : 082 ms QT Int : 322 ms P-R-T Axes : 077 011 192 degrees QTc Int : 480 ms SINUS TACHYCARDIA vs atrial tachycardia ABNORMAL ECG WHEN COMPARED WITH ECG OF 26-FEB-2019 22:33, VENT. RATE HAS INCREASED BY 58 BPM NON-SPECIFIC CHANGE IN ST SEGMENT IN INFERIOR LEADS T WAVE INVERSION NOW EVIDENT IN INFERIOR LEADS INVERTED T WAVES HAVE REPLACED NONSPECIFIC T WAVE ABNORMALITY IN LATERAL LEADS Confirmed by Leander Chino ([id number]) on 05/01/2019 9:31:59 AM Referred By: Confirmed By:Leander Chino
[2019-05-01 09:38] LABS: INR 3.71 (0.83-1.09); PROTHROMBIN TIME (PATIENT) 44.4 SEC (9.7-13.0)
[2019-05-01 09:41] LABS: ACTIVATED PTT 45.5 SECONDS (25.2-36.5)
[2019-05-01] MEDS ORDERED: METOPROLOL TARTRATE 25 MG TABLET (FP) PO SCH (10:00)
[2019-05-01 10:15] LABS: ALBUMIN 2.8 g/dl (3.4-5.0); BILIRUBIN,TOTAL 1.3 mg/dL (0.2-1); BLOOD UREA NITROGEN 7.9 mg/dL (7-18); CALCIUM 8.3 mg/dL (8.5-10.1); CREATININE 0.7 mg/dL (0.55-1.3); POTASSIUM 3.4 mmol/L (3.5-5.1); TOT PROT 6.3 g/dl (6.4-8.2)
[2019-05-01] MEDS: NEOMYCIN/POLYMYX/HC OPHTHALMIC SUSPENSION 7.5 ML BOTTLE OS SCH ×4 (10:25→21:36)
--- NOTE | 2019-05-01 11:05 | CON.CARD ---
Consult Consult Specialty:: CV - History of Present Illness Chief Complaint: ear pain History of Present Illness: 88 F here with ear pain. noted to have fever, CT c/w mastoiditis. we were consulted for rapid AF to 130s, soft BP previously had AF ablation with Dr Oakes at [facility]. prior trials of bb and ccb per dr david were poorly tolerated (hypotension). had 30 day monitor recently showing one brief episode of afib. 3 wks ago pt requested to stop amio due to palpitations and malaise she thought was med effect--was held for brief trial. PALPITATIONS RESOLVED denies sob. + dry cough no cp, syncope PMH: afib MR/TR HTN - Past Medical History Cardio/Vascular: Yes: AFIB, HTN, Hyperlipdemia Gastrointestinal: Yes: GERD - Past Surgical History Past Surgical History: Yes: Joint Replacement - Alcohol/Substance Use Hx Alcohol Use: No - Smoking History Smoking history: Never smoked Have you smoked in the past 12 months: No Aproximately how many cigarettes per day: 10 If you are a former smoker, when did you quit?: 01/23 - Social History Usual Living Arrangement: Alone ADL: Independent History of Recent Travel: No Home Medications - Allergies Allergies/Adverse Reactions: Allergies Allergy/AdvReac Type Severity Reaction Status Date / Time No Known Drug Allergies Allergy Verified 04/30/19 10:58 - Home Medications Home Medications: Ambulatory Orders Acetaminophen [Tylenol .Regular Strength -] 650 mg PO Q6H PRN tablet 03/03/19 Warfarin Na [Coumadin -] 5.5 mg PO DAILY@1800 04/30/19 Family Medical History Family History: Denies (no known cmp) Review of Systems - Review of Systems Constitutional: denies: Chills, Fever Eyes: denies: Eye Pain HENT: denies: Nasal Congestion Neck: denies: Stiffness Cardiovascular: denies: Palpitations Respiratory: denies: Orthopnea, PND Gastrointestinal: denies: Diarrhea, Rectal Bleeding Genitourinary: denies: Burning, Hematuria Musculoskeletal: denies: Muscle Pain Integumentary: denies: Rash Neurological: denies: Numbness, Seizure, Syncope Endocrine: denies: Excessive Sweating Hematology/Lymphatic: denies: Excessive Bleeding Vital Signs: Vital Signs Temperature 98.3 F 05/01/19 08:20 Pulse Rate 115 H 05/01/19 08:20 Respiratory Rate 18 02/24/20 08:20 Blood Pressure 136/74 05/01/19 08:20 O2 Sat by Pulse Oximetry (%) 90 L 05/01/19 05:46 Constitutional: Yes: Well Nourished, No Distress Eyes: No: Sclera Icterus HENT: No: Nasal Congestion Neck: No: Decreased ROM Respiratory: Yes: CTA Bilaterally. No: Accessory Muscle Use, Rales, Wheezes Gastrointestinal: Yes: Normal Bowel Sounds. No: Distention, Hepatomegaly, Palpable Mass, Tenderness Cardiovascular: Yes: Regular Rate and Rhythm JVD: No Carotid Bruit: No PMI: Non-Displaced Heart Sounds: Yes: S1, S2. No: Gallop Murmur: Yes: Systolic Murmur (apex to LLSB). No: Diastolic Murmur Musculoskeletal: Yes: Other (No kyphosis) Extremities: No: Cool, Cyanosis Edema: No Peripheral Pulses: 2+ Left Carotid, 2+ Right Carotid, 2+ Left Doralis Pedis, 2+ Right Dorsalis Pedis Integumentary: No: Jaundice Neurological: Yes: Alert, Oriented (x3) Psychiatric: No: Agitated - Other Data Labs, Other Data: CBC, BMP 05/01/19 08:48 05/01/19 08:48 INR, PTT INR 3.71 (0.83-1.09) H 05/01/19 08:48 Troponin, BNP 04/30/19 11:50 Troponin I 0.04 Troponin, BNP 04/30/19 11:50 Troponin I 0.04 Assessment/Plan echo 12/2017 nl lv/rv, LA mod dilated, mod MR, mod to sev TR, PASP >46 mmHg, mild AR MIBI 07/2016: no isch ST changes. normal perfusion, nl EF ECG: atyp AFL with 2:1 conduction, new ST-Ts vs prior CXR: clear lungs/pleura a/p: 87 yo f hx smoking with a history of A. fib on Coumadin/amiodarone, htn, mild mr, gerd, diverticulosis here with mastoiditis mastoiditis: - per dr mayen's team paroxysmal atrial fibrillation - s/p ablation 05/2017, recent 30 day monitor brief atrial arrhythmia - held amio for ? s.e. recently (palpitations--? red saunders)--here in atypical atrial flutter 2:1 conduction - resume prior amiodarone 200 qd--may need low if remains rapid. d/w'd EP, dr david - tele monitoring - cont home coumadin mitral regurgitation, tricuspid regur: - eccentric MR, reported as moderate, preserved LF fxn. mild pulm HTN noted, stable on echo 12/2017 - routine HF mgmt as doing, outpt f/u--appears euvolemic + tobacco - tobacco cessation counseling
[2019-05-01] MEDS: AMIODARONE HCL 200 MG TABLET PO SCH (13:31)
--- NOTE | 2019-05-01 14:29 | EKG ---
Test Reason : Blood Pressure : / mmHG Vent. Rate : 103 BPM Atrial Rate : 107 BPM P-R Int : 000 ms QRS Dur : 088 ms QT Int : 350 ms P-R-T Axes : 000 015 235 degrees QTc Int : 458 ms ATRIAL FIBRILLATION /Flutter WITH RAPID VENTRICULAR RESPONSE ABNORMAL ECG WHEN COMPARED WITH ECG OF 30-APR-2019 11:05, ATRIAL FIBRILLATION /Flutter present Confirmed by Leander Chino ([id number]) on 05/01/2019 2:28:41 PM Referred By: Confirmed By:Leander Chino
[2019-05-01] MEDS: ACETAMINOPHEN 325 MG TABLET (FP) PO PRN ×2 (15:06→21:40)
--- NOTE | 2019-05-01 16:33 | PN ---
Progress Note (short form) - Note Progress Note: ID CONSULT DICTATED S/P RUPTURED R TM ? ACUTE MASTOIDITIS V. BLEED LEUKOCYTOSIS AWAIT C/S ENT EVALUATION EMPIRIC ZOSYN
--- NOTE | 2019-05-01 17:27 | CONS ---
DATE OF CONSULTATION: DATE OF DICTATION: 05/01/2019 INFECTIOUS DISEASE CONSULTATION HISTORY OF PRESENT ILLNESS: The patient is an 88-year-old female who is evaluated for possible acute mastoiditis. She was admitted to the hospital on April 30, 2019, with complaints of bleeding from her right ear. She had fallen at home on Wednesday, April 26, 2019. She sustained trauma to her lower back. She denied any head trauma. On WednesdayApril 29, she noted bleeding from her right ear. She presented to the emergency room, where she was found to have a ruptured right tympanic membrane. CAT scan of the head as well as the facial sinuses reveal fluid and a mastoid air cell consistent with blood, possible acute mastoiditis. Her course was complicated by tachycardia, fever to 101.6, and an elevated white blood cell count. She is awake and alert. She has no complaints of ear pain at the present time. She denies any purulent drainage from her ear. She denies any ear swelling, no pain in the mastoid area, no hearing deficit. She denied any subjective fever or chills. Patient is nondiabetic. PAST MEDICAL HISTORY: Positive for hypertension, atrial fibrillation. PAST SURGICAL HISTORY: Status post total hip replacement. ALLERGIES: No known allergies. MEDICATION: Include 1. Tylenol 2. Polymyxin ophthalmic solution. 3. Vancomycin. 4. Zosyn. SOCIAL HISTORY: She resides at home alone. She is a nonsmoker. SYSTEMS REVIEW: Neurologic: No loss of consciousness, seizure activity, focal weakness. Cardiac: Negative for chest pain or palpitations. Respiratory: Negative for cough or sputum production. Gastrointestinal: Negative vomiting or diarrhea. Genitourinary: Negative for urinary tract infection. LABORATORY DATA: White count 13.2, hematocrit 37.8, platelet count 222, creatinine 0.7, urinalysis 8, white cells blood cultures pending. CAT scan as described. PHYSICAL EXAMINATION: General: On physical examination, she is seated in bed, she is in no acute distress. Not acutely toxic appearing. Vital signs: Temperature 98.7, T-max 101.6, blood pressure 125/73, pulse 108 regular, respirations 18 per minute. HEENT: Sclerae anicteric. There is left conjunctival injection. Examination of the right ear, there is slight erythema of the pinna. There is no swelling noted. There is clotted blood at the external auditory canal. There is no tenderness solicited. There is no tenderness over the mastoid process or preauricular area. Her hearing is intact. Neck: Supple. Cardiovascular: Heart sounds S1, S2. Lungs: Clear. Abdomen: Soft, nontender. Extremities: Negative for edema. IMPRESSION: 1. Status post fall. 2. Ruptured right tympanic membrane, presumably secondary to trauma. 3. Acute mastoiditis versus bleed. 4. Fever, leukocytosis, rule out sepsis. CAT scan findings discussed with radiology, consistency of the fluid in the mastoid air cells appears similar to that in the ear canal. Suspect localized bleeding. No evidence for complicated mastoiditis including swelling of the pinna, facial paralysis, hearing loss, or vertigo. Will empirically cover for possible suppurative mastoiditis pending cultures with Zosyn. ENT evaluation. Thank you for the kind referral. SARAH LÓPEZ M.D. [id number]
[2019-05-01] MEDS: PIPERACILLIN/TAZOB 3.375 GM 3.375 GM in DEXTROSE 5%-WATER - 50 ML IVPB SCH (18:34)
[2019-05-02] MEDS: PIPERACILLIN/TAZOB 3.375 GM 3.375 GM in DEXTROSE 5%-WATER - 50 ML IVPB SCH ×3 (01:36→17:21)
[2019-05-02] MEDS: NEOMYCIN/POLYMYX/HC OPHTHALMIC SUSPENSION 7.5 ML BOTTLE OS SCH ×5 (06:09→23:06)
[2019-05-02 06:31] LABS: BASO % 0.3 % (0-2.0); EOS % 0.7 % (0-4.5); HEMATOCRIT 38.5 % (32.4-45.2); LYMPH % 12.3 % (8-40); MCH 31.2 pg (25.7-33.7); MCHC 33.7 g/dl (32.0-36.0); MEAN CELL VOLUME 92.5 fl (80-96); MEAN PLT VOLUME 8.5 fl (7.5-11.1); MONO % 8.8 % (3.8-10.2); NEUT % 77.9 % (42.8-82.8); PLATELET COUNT 245 K/MM3 (134-434); RBC 4.16 M/mm3 (3.60-5.2); RDW 14.1 % (11.6-15.6); WHITE BLOOD COUNT 9.6 K/mm3 (4.0-10.0)
[2019-05-02 06:53] LABS: INR 2.48 (0.83-1.09); PROTHROMBIN TIME (PATIENT) 29.5 SEC (9.7-13.0)
[2019-05-02 07:00] LABS: ALBUMIN 2.7 g/dl (3.4-5.0); BLOOD UREA NITROGEN 9.1 mg/dL (7-18); CALCIUM 8.6 mg/dL (8.5-10.1); CREATININE 0.8 mg/dL (0.55-1.3); POTASSIUM 3.4 mmol/L (3.5-5.1); TOT PROT 6.3 g/dl (6.4-8.2)
[2019-05-02] MEDS: ACETAMINOPHEN 325 MG TABLET (FP) PO PRN (08:53)
[2019-05-02] MEDS ORDERED: ACETAMINOPHEN 325 MG TABLET (FP) ONE (08:54)
[2019-05-02] MEDS: AMIODARONE HCL 200 MG TABLET PO SCH (09:35)
--- NOTE | 2019-05-02 09:47 | PN ---
Progress Note, Physician - Current Medication List Current Medications: Active Medications Acetaminophen (Tylenol -) 650 mg PO Q6H PRN PRN Reason: Fever Or Pain Last Admin: 05/02/19 08:53 Dose: 650 mg Amiodarone HCl (Cordarone -) 200 mg PO DAILY VANESA Last Admin: 05/02/19 09:35 Dose: 200 mg Piperacillin Sod/Tazobactam (Sod 3.375 gm/ Dextrose) 50 mls @ 100 mls/hr IVPB Q8H-IV VANESA; Protocol Last Admin: 05/02/19 09:37 Dose: 100 mls/hr Neomycin/Polymyxin/Hydrocortisone (Cortisporin Ophthalmic Suspension -) 1 drop OS Q4HWA VANESA Last Admin: 05/02/19 09:35 Dose: 1 drop - Objective Vital Signs: Vital Signs Temperature 98.1 F 05/02/19 06:23 Pulse Rate 87 05/02/19 06:23 Respiratory Rate 20 05/02/19 06:23 Blood Pressure 109/77 05/02/19 06:23 O2 Sat by Pulse Oximetry (%) 94 L 05/01/19 21:00 Cardiovascular: Yes: Pulse Irregular, S1, S2 Respiratory: Yes: Regular, CTA Bilaterally Gastrointestinal: Yes: Normal Bowel Sounds, Soft Labs: CBC, BMP 05/02/19 06:15 05/02/19 06:15 INR, PTT INR 2.48 (0.83-1.09) H 05/02/19 06:15 Problem List - Problems (1) Mastoiditis Assessment/Plan: IV ABX ID CONSULT FOLLOW LABS Code(s): H70.90 - UNSPECIFIED MASTOIDITIS, UNSPECIFIED EAR (2) Ruptured tympanic membrane Assessment/Plan: ENT CONSULT PENDING Code(s): H72.90 - UNSP PERFORATION OF TYMPANIC MEMBRANE, UNSPECIFIED EAR (3) Conjunctivitis Assessment/Plan: OPTH DROPS OPTH CONSULT Code(s): H10.9 - UNSPECIFIED CONJUNCTIVITIS (4) Supratherapeutic INR Assessment/Plan: HOLD COUMADIN MONITOR INR Code(s): R79.1 - ABNORMAL COAGULATION PROFILE (5) Afib Assessment/Plan: OFF METOPROLOL EKG CARDIO NOTED==ON AMIO Code(s): I48.91 - UNSPECIFIED ATRIAL FIBRILLATION
[2019-05-02] MEDS ORDERED: POTASSIUM CHLORIDE TABS 20 MEQ TABLET.ER (FP) PO ONE (10:15)
--- NOTE | 2019-05-02 12:40 | PN ---
Progress Note (short form) - Note Progress Note: s: no chest pain, palps, dizziness, dyspnea Current Medications Acetaminophen (Tylenol -) 650 mg PO Q6H PRN PRN Reason: Fever Or Pain Last Admin: 05/02/19 08:53 Dose: 650 mg Amiodarone HCl (Cordarone -) 200 mg PO DAILY VANESA Last Admin: 05/02/19 09:35 Dose: 200 mg Piperacillin Sod/Tazobactam (Sod 3.375 gm/ Dextrose) 50 mls @ 100 mls/hr IVPB Q8H-IV VANESA; Protocol Last Admin: 05/02/19 09:37 Dose: 100 mls/hr Neomycin/Polymyxin/Hydrocortisone (Cortisporin Ophthalmic Suspension -) 1 drop OS Q4HWA VANESA Last Admin: 05/02/19 09:35 Dose: 1 drop Vital Signs Period Temp Pulse Resp BP Sys/Lucero Pulse Ox Last 24 Hr 98.0 F-98.7 F 84-108 18-20 106-126/66-77 94 Constitutional: Yes: Well Nourished, No Distress Eyes: No: Sclera Icterus HENT: No: Nasal Congestion Neck: No: Decreased ROM Respiratory: Yes: CTA Bilaterally. No: Accessory Muscle Use, Rales, Wheezes Gastrointestinal: Yes: Normal Bowel Sounds. No: Distention, Hepatomegaly, Palpable Mass, Tenderness Cardiovascular: Yes: Regular Rate and Rhythm JVD: No Carotid Bruit: No PMI: Non-Displaced Heart Sounds: Yes: S1, S2. No: Gallop Murmur: Yes: Systolic Murmur (apex to LLSB). No: Diastolic Murmur Musculoskeletal: Yes: Other (No kyphosis) Extremities: No: Cool, Cyanosis Edema: No Peripheral Pulses: 2+ Left Carotid, 2+ Right Carotid, 2+ Left Doralis Pedis, 2+ Right Dorsalis Pedis Integumentary: No: Jaundice Neurological: Yes: Alert, Oriented (x3) Psychiatric: No: Agitated Assessment/Plan echo 12/2017 nl lv/rv, LA mod dilated, mod MR, mod to sev TR, PASP >46 mmHg, mild AR MIBI 07/2016: no isch ST changes. normal perfusion, nl EF ECG: atyp AFL with 2:1 conduction, new ST-Ts vs prior CXR: clear lungs/pleura tele: afib rate ok, occasional episodes 120s a/p: 87 yo f hx smoking with a history of A. fib on Coumadin/amiodarone, htn, mild mr, gerd, diverticulosis here with mastoiditis mastoiditis: - per dr mayen's team paroxysmal atrial fibrillation - s/p ablation 05/2017, recent 30 day monitor brief atrial arrhythmia - held amio for ? s.e. recently (palpitations--? red saunders)--here in atypical atrial flutter 2:1 conduction - resumed prior amiodarone 200 qd, rate control improved, no palps - continue - tele monitoring - cont home coumadin mitral regurgitation, tricuspid regur: - eccentric MR, reported as moderate, preserved LF fxn. mild pulm HTN noted, stable on echo 12/2017 - routine HF mgmt as doing, outpt f/u--appears euvolemic + tobacco - tobacco cessation counseling
[2019-05-02] MEDS ORDERED: PIPERACILLIN/TAZOBACTAM 3.375 GM VIAL IVPB ONE (17:06)
[2019-05-02] MEDS ORDERED: DEXTROSE 5%-WATER - 50 ML IVPB ONE (17:07)
[2019-05-03] MEDS: PIPERACILLIN/TAZOB 3.375 GM 3.375 GM in DEXTROSE 5%-WATER - 50 ML IVPB SCH ×3 (02:00→17:26)
[2019-05-03] MEDS: ACETAMINOPHEN 325 MG TABLET (FP) PO PRN ×3 (02:00→20:00)
[2019-05-03] MEDS ORDERED: PIPERACILLIN/TAZOBACTAM 3.375 GM VIAL IVPB ONE ×3 (02:59→17:31)
[2019-05-03] MEDS ORDERED: DEXTROSE 5%-WATER - 50 ML IVPB ONE ×3 (02:59→17:31)
[2019-05-03] MEDS: NEOMYCIN/POLYMYX/HC OPHTHALMIC SUSPENSION 7.5 ML BOTTLE OS SCH ×5 (06:44→23:46)
[2019-05-03] MEDS: AMIODARONE HCL 200 MG TABLET PO SCH (10:10)
--- NOTE | 2019-05-03 11:13 | PN ---
Progress Note (short form) - Note Progress Note: s: no chest pain, palps, dizziness, dyspnea Current Medications Acetaminophen (Tylenol -) 650 mg PO Q6H PRN PRN Reason: Fever Or Pain Last Admin: 05/03/19 10:08 Dose: 650 mg Amiodarone HCl (Cordarone -) 200 mg PO DAILY VANESA Last Admin: 05/03/19 10:10 Dose: 200 mg Piperacillin Sod/Tazobactam (Sod 3.375 gm/ Dextrose) 50 mls @ 100 mls/hr IVPB Q8H-IV VANESA; Protocol Last Admin: 05/03/19 10:11 Dose: 100 mls/hr Neomycin/Polymyxin/Hydrocortisone (Cortisporin Ophthalmic Suspension -) 1 drop OS Q4HWA VANESA Last Admin: 05/03/19 10:10 Dose: 1 drop Vital Signs Period Temp Pulse Resp BP Sys/Lucero Pulse Ox Last 24 Hr 97.7 F-98.3 F 84-102 18-20 102-140/70-81 95 Constitutional: Yes: Well Nourished, No Distress Eyes: No: Sclera Icterus HENT: No: Nasal Congestion Neck: No: Decreased ROM Respiratory: Yes: CTA Bilaterally. No: Accessory Muscle Use, Rales, Wheezes Gastrointestinal: Yes: Normal Bowel Sounds. No: Distention, Hepatomegaly, Palpable Mass, Tenderness Cardiovascular: Yes: Regular Rate and Rhythm JVD: No Carotid Bruit: No PMI: Non-Displaced Heart Sounds: Yes: S1, S2. No: Gallop Murmur: Yes: Systolic Murmur (apex to LLSB). No: Diastolic Murmur Musculoskeletal: Yes: Other (No kyphosis) Extremities: No: Cool, Cyanosis Edema: No Peripheral Pulses: 2+ Left Carotid, 2+ Right Carotid, 2+ Left Doralis Pedis, 2+ Right Dorsalis Pedis Integumentary: No: Jaundice Neurological: Yes: Alert, Oriented (x3) Psychiatric: No: Agitated Assessment/Plan echo 12/2017 nl lv/rv, LA mod dilated, mod MR, mod to sev TR, PASP >46 mmHg, mild AR MIBI 07/2016: no isch ST changes. normal perfusion, nl EF ECG: atyp AFL with 2:1 conduction, new ST-Ts vs prior CXR: clear lungs/pleura tele: afib rate ok, occasional episodes 120s a/p: 87 yo f hx smoking with a history of A. fib on Coumadin/amiodarone, htn, mild mr, gerd, diverticulosis here with mastoiditis mastoiditis: - per dr mayen's team paroxysmal atrial fibrillation - s/p ablation 05/2017, recent 30 day monitor brief atrial arrhythmia - held amio for ? s.e. recently (palpitations--? red saunders)--here in atypical atrial flutter 2:1 conduction - resumed prior amiodarone 200 qd, rate control improved, no palps, continue - tele monitoring - cont home coumadin, adjust per INR, goal 2-3 mitral regurgitation, tricuspid regur: - eccentric MR, reported as moderate, preserved LF fxn. mild pulm HTN noted, stable on echo 12/2017 - routine HF mgmt as doing, outpt f/u--appears euvolemic + tobacco - tobacco cessation counseling
--- NOTE | 2019-05-03 17:14 | PN ---
Progress Note, Physician History of Present Illness: AWAKE, ALERT IN BED NO C/O EAR PAIN OR HEARING LOSS NO FEVER/ CHILLS - Current Medication List Current Medications: Active Medications Acetaminophen (Tylenol -) 650 mg PO Q6H PRN PRN Reason: Fever Or Pain Last Admin: 05/03/19 10:08 Dose: 650 mg Amiodarone HCl (Cordarone -) 200 mg PO DAILY VANESA Last Admin: 05/03/19 10:10 Dose: 200 mg Piperacillin Sod/Tazobactam (Sod 3.375 gm/ Dextrose) 50 mls @ 100 mls/hr IVPB Q8H-IV VANESA; Protocol Last Admin: 05/03/19 10:11 Dose: 100 mls/hr Neomycin/Polymyxin/Hydrocortisone (Cortisporin Ophthalmic Suspension -) 1 drop OS Q4HWA VANESA Last Admin: 05/03/19 15:07 Dose: 1 drop - Objective Vital Signs: Vital Signs Temperature 97.9 F 05/03/19 14:15 Pulse Rate 98 H 05/03/19 14:15 Respiratory Rate 18 05/03/19 14:15 Blood Pressure 127/74 05/03/19 14:15 O2 Sat by Pulse Oximetry (%) 96 05/03/19 09:00 Constitutional: Yes: No Distress HENT: Yes: Other (NO R PINNA SWELLING/ ERYTHEMA/ TENDERNESS NO DRAINAGE OR BLEEDING FROM EAR CANAL NO TENDERNESS R MASTOID AREA) Cardiovascular: Yes: Regular Rate and Rhythm, S1, S2 Respiratory: Yes: CTA Bilaterally Gastrointestinal: Yes: Normal Bowel Sounds, Soft. No: Tenderness Labs: CBC, BMP 05/02/19 06:15 05/02/19 06:15 INR, PTT INR 2.48 (0.83-1.09) H 05/02/19 06:15 Assessment/Plan S/P RUPTURED R TYMPANIC MEMBRANE ACUTE MASTOIDITIS V. BLEED LEUKOCYTOSIS RESOLVED AWAIT C/S ENT EVALUATION IF OK WITH ENT SUBSTITUTE AUGMENTIN 875MG PO BID 7D
[2019-05-03] MEDS ORDERED: WARFARIN NA 5 MG TABLET (UD) PO ONE ×2 (18:00→23:45)
--- NOTE | 2019-05-03 18:06 | PN ---
Progress Note, Physician Chief Complaint: AWAKE ALERT EVENTS REVIEWED IN BED FEELING BETTER - Current Medication List Current Medications: Active Medications Acetaminophen (Tylenol -) 650 mg PO Q6H PRN PRN Reason: Fever Or Pain Last Admin: 05/03/19 10:08 Dose: 650 mg Amiodarone HCl (Cordarone -) 200 mg PO DAILY [facility] Last Admin: 05/03/19 10:10 Dose: 200 mg Piperacillin Sod/Tazobactam (Sod 3.375 gm/ Dextrose) 50 mls @ 100 mls/hr IVPB Q8H-IV VANESA; Protocol Last Admin: 05/03/19 17:26 Dose: 100 mls/hr Neomycin/Polymyxin/Hydrocortisone (Cortisporin Ophthalmic Suspension -) 1 drop OS Q4HWA VANESA Last Admin: 05/03/19 17:25 Dose: 1 drop - Objective Vital Signs: Vital Signs Temperature 97.9 F 05/03/19 14:15 Pulse Rate 98 H 05/03/19 14:15 Respiratory Rate 18 05/03/19 14:15 Blood Pressure 127/74 05/03/19 14:15 O2 Sat by Pulse Oximetry (%) 96 05/03/19 09:00 Constitutional: Yes: Mild Distress Cardiovascular: Yes: Pulse Irregular Respiratory: Yes: CTA Bilaterally Gastrointestinal: Yes: Soft Genitourinary: Yes: WNL Musculoskeletal: Yes: Back Pain Edema: No Integumentary: Yes: WNL Wound/Incision: Yes: Clean/Dry Neurological: Yes: WNL Psychiatric: Yes: WNL Labs: CBC, BMP 05/02/19 06:15 05/02/19 06:15 INR, PTT INR 2.48 (0.83-1.09) H 05/02/19 06:15 Problem List - Problems (1) Mastoiditis Code(s): H70.90 - UNSPECIFIED MASTOIDITIS, UNSPECIFIED EAR (2) Ruptured tympanic membrane Code(s): H72.90 - UNSP PERFORATION OF TYMPANIC MEMBRANE, UNSPECIFIED EAR (3) Afib Code(s): I48.91 - UNSPECIFIED ATRIAL FIBRILLATION (4) Dizziness Code(s): R42 - DIZZINESS AND GIDDINESS Assessment/Plan CONTINUE ZOSYN CHANGE TO AUGMENTIN TOMORROW LIDODERM PATCH TO BACK OOB TO CHAIR ON AC COUMADIN RESTARTED CHECK INR IN AM
[2019-05-03] MEDS ORDERED: LIDOCAINE PATCH REMOVAL MC SCH (22:00)
[2019-05-03] MEDS: LIDOCAINE 5% TOPICAL PATCH TP SCH (23:45)
[2019-05-04] MEDS: ACETAMINOPHEN 325 MG TABLET (FP) PO PRN (04:10)
[2019-05-04] MEDS ORDERED: PIPERACILLIN/TAZOBACTAM 3.375 GM VIAL IVPB ONE ×2 (04:12→08:02)
[2019-05-04] MEDS ORDERED: DEXTROSE 5%-WATER - 100 ML IVPB ONE (04:13)
[2019-05-04] MEDS: PIPERACILLIN/TAZOB 3.375 GM 3.375 GM in DEXTROSE 5%-WATER - 50 ML IVPB SCH ×2 (04:14→09:17)
[2019-05-04] MEDS: NEOMYCIN/POLYMYX/HC OPHTHALMIC SUSPENSION 7.5 ML BOTTLE OS SCH ×3 (07:04→14:03)
[2019-05-04 07:22] LABS: HEMATOCRIT 40.8 % (32.4-45.2); HEMOGLOBIN 13.8 GM/dL (10.7-15.3); MCH 31.1 pg (25.7-33.7); MCHC 33.9 g/dl (32.0-36.0); MEAN CELL VOLUME 91.9 fl (80-96); MEAN PLT VOLUME 8.4 fl (7.5-11.1); PLATELET COUNT 331 K/MM3 (134-434); RBC 4.44 M/mm3 (3.60-5.2); RDW 14.1 % (11.6-15.6); WHITE BLOOD COUNT 7.5 K/mm3 (4.0-10.0)
[2019-05-04 07:33] LABS: INR 2.36 (0.83-1.09); PROTHROMBIN TIME (PATIENT) 28.1 SEC (9.7-13.0)
[2019-05-04] MEDS ORDERED: DEXTROSE 5%-WATER - 50 ML IVPB ONE (08:03)
[2019-05-04] MEDS ORDERED: SODIUM POLYSTYRENE SULFONATE 15 GM/60 ML BOTTLE ONE (08:03)
[2019-05-04 08:07] LABS: BLOOD UREA NITROGEN 7.6 mg/dL (7-18); CALCIUM 9.5 mg/dL (8.5-10.1); CREATININE 0.8 mg/dL (0.55-1.3); POTASSIUM 3.3 mmol/L (3.5-5.1)
[2019-05-04] MEDS: LIDOCAINE 5% TOPICAL PATCH TP SCH (09:15)
[2019-05-04] MEDS: AMIODARONE HCL 200 MG TABLET PO SCH (09:17)
--- NOTE | 2019-05-04 09:41 | DS ---
Physical Examination Vital Signs: Vital Signs Temperature 97.8 F 05/04/19 02:00 Pulse Rate 92 H 05/04/19 05:27 Respiratory Rate 18 05/04/19 05:27 Blood Pressure 144/92 05/04/19 05:27 O2 Sat by Pulse Oximetry (%) 98 05/03/19 21:00 Findings/Remarks: FEELING BETTER I SPOKE WITH ENT DR CM AND HE REVIEWED CT SCAN AND FEELS THIS IS A FLUID LEVEL FROM OTITIS MEDIA NOT MASTOIDITIS, WOULD LIKE SEE MS SEARS TODAY AT HIS OFFICE. Constitutional: Yes: Mild Distress Cardiovascular: Yes: Pulse Irregular Respiratory: Yes: WNL Gastrointestinal: Yes: WNL ...Rectal Exam: Yes: WNL Renal/: Yes: WNL Musculoskeletal: Yes: Back Pain Extremities: Yes: WNL Edema: No Integumentary: Yes: WNL Neurological: Yes: Pre-Existing Deficit ...Motor Strength: LLE, RLE Psychiatric: Yes: WNL, Other Labs: CBC, BMP 05/04/19 06:30 05/04/19 06:30 Discharge Summary Problems reviewed: Yes Reason For Visit: MASTOIDITIS,SUPRATHERAPUTIC INTERNATION NORMALIZED Current Active Problems Conjunctivitis (Acute) Mastoiditis (Acute) Ruptured tympanic membrane (Acute) Supratherapeutic INR (Acute) Procedures: Principal: CT SCANS/LABS/CX Hospital Course: ADMITTED FOR ACUTE OTITIS WITH MASTOIDITIS ON IV ABX, DIZZINESS IMPROVED AND TOLERATED TREATMENT Goals: SEE DR TOI LUU TOMORROW Condition: Improved - Instructions Diet, Activity, Other Instructions: LOW SALT INR THERAPEUTIC 2.38 AUGMENTIN FOR [address] TOI LUU IN 1-2 DAYS Referrals: Tisha Urban MD [Primary Care Provider] - Disposition: VNS/HOME HEALTH CARE - Home Medications Comprehensive Discharge Medication List: Ambulatory Orders Acetaminophen [Tylenol .Regular Strength -] 650 mg PO Q6H PRN tablet 03/03/19 Warfarin Na [Coumadin -] 5.5 mg PO DAILY@1800 04/30/19 Amiodarone HCl [Cordarone -] 200 mg PO DAILY tablet 05/04/19 Amoxicillin/Potassium Clav [Augmentin 500-125 Tablet] 1 each PO BID #10 tablet 05/04/19 Neomycin/Polymyx/Hc Ophth Susp [Cortisporin *Ophthalmic Suspension* -] 2 drop OS Q4HWA #1 bottle 05/04/19 Prescription Drug Monitoring Program (I-STOP) results: I-STOP not reviewed
[2019-05-04] MEDS ORDERED: POTASSIUM CHLORIDE TABS 10 MEQ TABLET.ER (FP) PO ONE (10:00)
--- NOTE | 2019-05-04 10:59 | PN ---
Progress Note (short form) - Note Progress Note: s: no chest pain, palps, dizziness, dyspnea Current Medications Generic Name Dose Route Start Last Admin Trade Name Freq PRN Reason Stop Dose Admin Acetaminophen 650 mg 04/30/19 16:06 05/04/19 04:10 Tylenol - PO 650 mg Q6H PRN Administration Fever Or Pain Amiodarone HCl 200 mg 05/01/19 11:45 05/04/19 09:17 Cordarone - PO 200 mg DAILY VANESA Administration Piperacillin Sod/Tazobactam 50 mls @ 100 mls/hr 05/01/19 18:00 05/04/19 09:17 Sod 3.375 gm/ Dextrose IVPB 100 mls/hr Q8H-IV VANESA Administration Protocol Lidocaine 1 patch 05/03/19 18:15 05/04/19 09:15 Lidoderm Patch - TP 1 patch DAILY VANESA Administration Miscellaneous 1 each 05/03/19 22:00 05/03/19 23:47 Lidoderm Patch Removal MC Not Given DAILY@2200 VANESA Neomycin/Polymyxin/Hydrocortisone 1 drop 05/01/19 10:00 05/04/19 09:17 Cortisporin Ophthalmic Suspension - OS 1 drop Q4HWA VANESA Administration Vital Signs Period Temp Pulse Resp BP Sys/Lucero Pulse Ox Last 24 Hr 97.4 F-97.9 F 92-101 18-22 127-159/74-92 98 Constitutional: Yes: Well Nourished, No Distress Eyes: No: Sclera Icterus Respiratory: Yes: CTA Bilaterally. No: Accessory Muscle Use, Rales, Wheezes Gastrointestinal: Yes: Normal Bowel Sounds. No: Distention, Hepatomegaly, Palpable Mass, Tenderness Cardiovascular: Yes: Regular Rate and Rhythm JVD: No Carotid Bruit: No PMI: Non-Displaced Heart Sounds: Yes: S1, S2. No: Gallop Murmur: Yes: Systolic Murmur (apex to LLSB). No: Diastolic Murmur Extremities: No: Cool, Cyanosis Edema: No Peripheral Pulses: 2+ Left Carotid, 2+ Right Carotid, 2+ Left Doralis Pedis, 2+ Right Dorsalis Pedis Integumentary: No: Jaundice Neurological: Yes: Alert, Oriented (x3) Psychiatric: No: Agitated CBC, BMP 05/04/19 06:30 05/04/19 06:30 echo 12/2017 nl lv/rv, LA mod dilated, mod MR, mod to sev TR, PASP >46 mmHg, mild AR MIBI 07/2016: no isch ST changes. normal perfusion, nl EF ECG: atyp AFL with 2:1 conduction, new ST-Ts vs prior CXR: clear lungs/pleura tele: afib rate ok a/p: 87 yo f hx smoking with a history of A. fib on Coumadin/amiodarone, htn, mild mr, gerd, diverticulosis here with mastoiditis mastoiditis: - per dr mayen's team paroxysmal atrial fibrillation - s/p ablation 05/2017, recent 30 day monitor brief atrial arrhythmia - held amio for ? s.e. recently (palpitations--? red saunders)--here in atypical atrial flutter 2:1 conduction - resumed prior amiodarone 200 qd, rate control improved, no palps, continue - cont home coumadin, adjust per INR, goal 2-3 mitral regurgitation, tricuspid regur: - eccentric MR, reported as moderate, preserved LF fxn. mild pulm HTN noted, stable on echo 12/2017 - routine HF mgmt as doing, outpt f/u--appears euvolemic + tobacco - tobacco cessation counseling cardiac sullivan stable for dc
[2019-05-04 15:10] VITALS: BP 153/95; PULSE 125; TEMP 98
== END 2019-05-04 17:16 | disposition home health service (06) | DRG 153 ==
LOC: JER 10:48 → JERBED 15:34 → J4W 05-02 15:41
PROVIDERS: ADMIT Family Medicine; ATTEND Family Medicine
DX: H70.93 Unspecified mastoiditis, bilateral (principal); I48.92 Unspecified atrial flutter; H72.90 Unspecified perforation of tympanic membrane, unspecified ear; I48.0 Paroxysmal atrial fibrillation; H10.9 Unspecified conjunctivitis; I27.20 Pulmonary hypertension, unspecified; F17.210 Nicotine dependence, cigarettes, uncomplicated; I10 Essential (primary) hypertension; K21.9 Gastro-esophageal reflux disease without esophagitis; I34.0 Nonrheumatic mitral (valve) insufficiency; I36.1 Nonrheumatic tricuspid (valve) insufficiency; R79.1 Abnormal coagulation profile; H66.90 Otitis media, unspecified, unspecified ear; R42 Dizziness and giddiness; D72.829 Elevated white blood cell count, unspecified; I95.9 Hypotension, unspecified; R00.0 Tachycardia, unspecified
CPT/HCPCS: 36415; 70450-TC; 70487-TC; 71045-TC-FY; 72100-TC-FY; 72125-TC; 72131-TC; 72170-TC-FY; 72220-TC-FY; 80048; 80053; 81003; 82803; 82962; 83605; 84443; 84484; 85025; 85027; 85610; 85730; 86850; 86900; 86901; 87040; 87086; 93005; 93010; 97116-GP; 97162-GP; 99285-25; J0131; J7030; Q9967

== ENCOUNTER 2019-09-09 12:13 | Observation (INO) | payer OTHER, MEDICARE ==
--- NOTE | 2019-09-09 12:24 | PDOC ---
Rapid Medical Evaluation Chief Complaint: Irregular Heart Beat Time Seen by Provider: 09/09/19 12:19 Medical Evaluation: Allergies Allergy/AdvReac Type Severity Reaction Status Date / Time No Known Drug Allergies Allergy Verified 04/30/19 10:58 09/09/19 12:22 I have performed a brief in-person evaluation of this patient. The patient presents with a chief complaint of: h/o Afib on coumadin present with complains of whole body weakness, SOB and fluttering in the heart. Denies dizziness, BARRETT, CP Pertinent physical exam findings: irregular heart rate in NAD. Lungs CTAB. afebrile I have ordered the following: cardiac labs, CBC, D-DIMER, CM The patient will proceed to the ED for further evaluation. Discharge Disposition - Diagnosis Afib Qualifiers: Atrial fibrillation type: unspecified Qualified Code(s): I48.91 - Unspecified atrial fibrillation Dyspnea Qualifiers: Dyspnea type: dyspnea on exertion Qualified Code(s): R06.00 - Dyspnea, unspecified - Discharge Dispostion Condition at time of disposition: Stable - Referrals - Patient Instructions - Post Discharge Activity
[2019-09-09 12:29] VITALS: BMI 21.9
[2019-09-09 13:00] LABS: EOS % 1.4 % (0-4.5); HEMATOCRIT 41.8 % (32.4-45.2); LYMPH % 25.9 % (8-40); MCH 30.9 pg (25.7-33.7); MCHC 33.4 g/dl (32.0-36.0); MEAN CELL VOLUME 92.5 fl (80-96); MEAN PLT VOLUME 10.1 fl (7.5-11.1); MONO % 9.9 % (3.8-10.2); NEUT % 61.8 % (42.8-82.8); PLATELET COUNT 271 K/MM3 (134-434); RBC 4.52 M/mm3 (3.60-5.2); RDW 13.9 % (11.6-15.6); WHITE BLOOD COUNT 7.5 K/mm3 (4.0-10.0)
[2019-09-09 13:09] LABS: INR 2.62 (0.83-1.09); PROTHROMBIN TIME (PATIENT) 31.2 SEC (9.7-13.0)
[2019-09-09 13:19] LABS: BILIRUBIN,TOTAL 1.9 mg/dL (0.2-1); BLOOD UREA NITROGEN 10.7 mg/dL (7-18); CALCIUM 9.5 mg/dL (8.5-10.1); CREATININE 0.9 mg/dL (0.55-1.3); MAGNESIUM 2.2 mg/dL (1.8-2.4); POTASSIUM 4.1 mmol/L (3.5-5.1); TOT PROT 7.5 g/dl (6.4-8.2)
--- NOTE | 2019-09-09 13:23 | PDOC ---
History of Present Illness - General Chief Complaint: Irregular Heart Beat Stated Complaint: PALPITATIONS Time Seen by Provider: 09/09/19 12:19 History Source: Patient Exam Limitations: No Limitations - History of Present Illness Initial Comments: HPI: This is an 89 y/o female with a PMH of afib controlled with amiodarone and anticoagulated with coumadin presenting to the emergency department due to palpitations and weakness. She states that she woke up at 2 a.m. with these sy mptoms which "felt like her other episodes of afib." She denied accompanying chest pain or SOB at the time. She got up and sat up in her chair which helped, but laying down made it worse. She took one dose of amiodarone around 3 a.m. She came into the ED because her episodes of afib usually resolve after 1-2 hours, but this one was lasting longer. She is currently still experiencing palpitations and admits to weakness. She denies chest pain, SOB, N/V, radiation, or dizziness. ROS: GENERAL/CONSTITUTIONAL: No fever or chills. Admits to weakness. HEAD, EYES, EARS, NOSE AND THROAT: No blurry vision CARDIOVASCULAR: No chest pain RESPIRATORY: No cough, wheezing GASTROINTESTINAL: No nausea, vomiting, abdominal pain. GENITOURINARY: No dysuria. Admits to increased urination. NEUROLOGIC: No headache, loss of consciousness. ENDOCRINE: No increased thirst. No abnormal weight change. HEMATOLOGIC/LYMPHATIC: No history of blood clots. ALLERGIC/IMMUNOLOGIC: No hives or skin allergy. PMH: Afib Meds: Amiodarone, Coumadin Allergies: Denied SHx: Former heavy smoker, smoked 70 years. Quit 2 years ago. PE: GENERAL: Awake, alert, and fully oriented, in no acute distress HEAD: No signs of trauma EYES: PERRL, EOMI, conjunctiva clear ENT: Moist mucosa NECK: Normal ROM, supple, no lymphadenopathy, JVD, or masses LUNGS: Breath sounds equal, clear to auscultation bilaterally. No wheezes, and no crackles HEART: Tachycardic and irregular. ABDOMEN: Soft, nontender, normoactive bowel sounds. No guarding, no rebound. No masses EXTREMITIES: Normal range of motion, no edema. No clubbing or cyanosis. No cords, erythema, or tenderness NEUROLOGICAL: Cranial nerves II through XII grossly intact. Normal speech, normal gait SKIN: Warm, Dry MDM: This is an 89 y/o female with a PMH of afib controlled with Amiodarone and Coumadin presenting due to an episode of afib with RVR since 2am this morning. It was non-responsive to her normal dose of Amiodarone. Patient appeared in no acute distress in the ED. Lopressor 5mg IV push was given to see if that would rate control her. It brought her down to the 80's. 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 Trending her past Troponins, this seems to be in the range of her baseline, which is from .02-.09. 09/09/19 17:15 Patient is still rate controlled in the 80's. Second Troponin was .09. Due to her age, HEART score of 5, and unknown precipitant for this episode of Afib a decision was made to admit her to tele/obs. 09/09/19 17:22 Admitted to tele/obs under Dr. Urban's service. 09/09/19 22:05 Past History - Medical History Allergies/Adverse Reactions: Allergies Allergy/AdvReac Type Severity Reaction Status Date / Time No Known Drug Allergies Allergy Verified 04/30/19 10:58 Home Medications: Ambulatory Orders Warfarin Na [Coumadin -] 5 mg PO DAILY@1800 04/30/19 Amiodarone HCl [Cordarone -] 200 mg PO DAILY tablet 05/04/19 traMADol HCL [Ultram -] 50 mg PO BID PRN 09/09/19 Anemia: No Asthma: No Cancer: No Cardiac Disorders: Yes (A-Fib, mitral regurgitation) CVA: No COPD: No CHF: No Dementia: No Diabetes: No GI Disorders: Yes (GERD) Disorders: No HTN: No Hypercholesterolemia: No Liver Disease: No Seizures: No Thyroid Disease: No - Surgical History Abdominal Surgery: Yes Appendectomy: Yes (s) Cardiac Surgery: Yes (ablation) Cholecystectomy: No Lung Surgery: No Neurologic Surgery: No Orthopedic Surgery: Yes (B THR) - Immunization History Immunization Up to Date: Yes - Psycho-Social/Smoking History Smoking Status: Yes Smoking History: Never smoked Have you smoked in the past 12 months: No Number of Cigarettes Smoked Daily: 10 If you are a former smoker, when did you quit?: 01/23 'Breaking Loose' booklet given: 12/21/17 - Substance Abuse Hx (Audit-C & DAST Scrn) How often the patient has a drink containing alcohol: Never Score: In Men: 4 or > Positive; In Women: 3 or > Positive: 0 Screen Result (Pos requires Nsg. Audit-10AR): Negative *Physical Exam - Vital Signs Last Vital Signs Temp Pulse Resp BP Pulse Ox 98.3 F 125 H 16 118/97 97 09/09/19 12:26 09/09/19 12:26 09/09/19 12:26 09/09/19 12:09/09/19 12:26 Heart Score/ECG Review - History History: Slightly suspicious - Electrocardiogram EKG: Non specific repolarization disturbance - Age Age: >/= 65 - Risk Factors Risk Factors Heart Score: Yes Hx Hypertension, Yes Smoking History Based on the list above the patient has:: 1-2 risk factors - Troponin Troponin: 1-3x normal limit - Score Heart Score - Total: 5 - ECG Intrepretation Rhythm: Irregularly Irregular ED Treatment Course - LABORATORY CBC & Chemistry Diagram: 09/09/19 12:30 09/09/19 12:30 - ADDITIONAL ORDERS Additional order review: Laboratory Results 09/09/19 12:30 PT with INR 31.20 H INR 2.62 H PTT (Actin FS) 42.0 H 09/09/19 12:30 RBC 4.52 MCV 92.5 MCHC 33.4 RDW 13.9 MPV 10.1 D Neutrophils % 61.8 D Lymphocytes % 25.9 D Monocytes % 9.9 Eosinophils % 1.4 D Basophils % 1.0 D Discharge - Discharge Information Problems reviewed: Yes Clinical Impression/Diagnosis: Elevated troponin, EKG abnormalities, Atrial fibrillation with RVR Afib Qualifiers: Atrial fibrillation type: unspecified Qualified Code(s): I48.91 - Unspecified atrial fibrillation Dyspnea Qualifiers: Dyspnea type: dyspnea on exertion Qualified Code(s): R06.00 - Dyspnea, unspecified Condition: Stable - Admission Yes - Follow up/Referral - Patient Discharge Instructions - Post Discharge Activity
--- NOTE | 2019-09-09 13:46 | PDOC ---
Documentation entered by Ina Grubbs SCRIBE, acting as scribe for Kya Hilliard MD. Kya Hilliard MD: This documentation has been prepared by the scribe, Ina Grubbs SCRIBE, under my direction and personally reviewed by me in its entirety. I confirm that the documentation accurately reflects all work, treatment, procedures, and medical decision making performed by me. Attending Attestation - Resident Resident Name: Leelee Faye - ED Attending Attestation I have performed the following: I have examined & evaluated the patient, The case was reviewed & discussed with the resident, I agree w/resident's findings & plan, Exceptions are as noted - HPI HPI: 09/09/19 12:44 Patient is an 89 year old female with a significant past medical history of afib (prior ablation, coumadin), HTN, COPD, mild mitral regurg, diverticulitis, OA, and hemarthrosis, who presents to the ED with palpitations and full body weakness since last night around 2am. Patient stated that she has previously experienced similar symptoms "like other episodes of afib" but that they "usually resolve in 1-2 hours but this one was longer-lasting," which prompted her arrival. Patient said laying down made her symptoms worse and sitting alleviates them a little. Patient disclosed she self medicated with one dose of amiodarone @3:00am. Patient denies: dizziness, nausea, vomiting, SOB, chest pain Allergies: NKDA - Physicial Exam PE: GENERAL: Awake, alert, and fully oriented, in no acute distress HEAD: No signs of trauma EYES: PERRLA, EOMI, sclera anicteric, conjunctiva clear ENT: Auricles normal inspection, hearing grossly normal, nares patent, oropharynx clear without exudates. Moist mucosa NECK: Normal ROM, supple, no lymphadenopathy, JVD, or masses LUNGS: Breath sounds equal, clear to auscultation bilaterally. No wheezes, and no crackles HEART: Tachycardic, irregularly irregular, normal S1 and S2, no murmurs, rubs or gallops ABDOMEN: Soft, nontender, normoactive bowel sounds. No guarding, no rebound. No masses EXTREMITIES: Normal range of motion, no edema. No clubbing or cyanosis. No cords, erythema, or tenderness NEUROLOGICAL: Cranial nerves II through XII grossly intact. Normal speech. Motor and sensation intact SKIN: Warm, dry, normal turgor, no rashes or lesions noted. - Medical Decision Making Pt with history of afib, typically controlled with amiodarone (CCBs and BBs have not adequately controlled her in the past) presenting with rapid afib. Improved with beta-w[place]ka. Will obtain labs to check CBC, electrolytes, troponin. 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 Discharge - Discharge Information Problems reviewed: Yes Clinical Impression/Diagnosis: Elevated troponin, EKG abnormalities, Atrial fibrillation with RVR Afib Qualifiers: Atrial fibrillation type: unspecified Qualified Code(s): I48.91 - Unspecified atrial fibrillation Dyspnea Qualifiers: Dyspnea type: dyspnea on exertion Qualified Code(s): R06.00 - Dyspnea, unspecified Condition: Stable - Follow up/Referral - Patient Discharge Instructions - Post Discharge Activity
[2019-09-09] MEDS ORDERED: METOPROLOL TARTRATE 5 MG/5 ML VIAL IVPUSH ONE (13:53)
[2019-09-09] MEDS ORDERED: SODIUM CHLORIDE 0.9% 500 ML INFUS.BAG IV ONE (13:55)
[2019-09-09] MEDS ORDERED: METOPROLOL TARTRATE 5 MG/5 ML VIAL ONE (14:00)
[2019-09-09 14:04] LABS: EPI CELLS 8 /uL (0-25.1); HYALINE CASTS 1 /uL (0-3.1); PH,URINE 5.5 (5.0-8.0); URINE APPEARANCE CLEAR; URINE BACTERIA 69 /uL (0-1359); URINE BILIRUBIN NEGATIVE (NEGATIVE); URINE COLOR YELLOW; URINE GLUCOSE (UA) NEGATIVE (NEGATIVE); URINE KETONE NEGATIVE (NEGATIVE); URINE LEUK ESTERASE TRACE (NEGATIVE); URINE NITRITE NEGATIVE (NEGATIVE); URINE PROTEIN NEGATIVE (NEGATIVE); URINE RBC 13 /uL (0-23.9); URINE WBC 18 /uL (0-25.8)
[2019-09-09] MEDS ORDERED: METOPROLOL TARTRATE 25 MG TABLET (FP) PO ONE (14:23)
[2019-09-09] MEDS ORDERED: METOPROLOL TARTRATE 25 MG TABLET (FP) ONE (14:42)
[2019-09-09] MEDS ORDERED: CEFTRIAXONE 1 GM/50 ML BAG ONE (17:34)
--- NOTE | 2019-09-09 19:38 | HP ---
Admitting History and Physical - Primary Care Physician PCP: Tisha Urban - Admission Chief Complaint: Palpitations, Weakness History of Present Illness: This is a 89 y/o female with a significant medical history of Paroxysmal Afib (on Amiodarone, Coumadin), s/p Ablation ([facility]), MR/TR, HTN, HLD, GERD. Who presents to the ED via ambulance for palpitations, generalized weakness since 2am today. Patient reports having palpitations while at rest, taking her Amiodarone. She reports that the palpitations never subsided prompting her to come in for evaluation. Patient denies fever, chills, cough, dizziness, BARRETT, CP, AP, N/V/D, constipation, dysuria. Patient denies sick contacts or recent travel. History Source: Patient Limitations to Obtaining History: No Limitations - Past Medical History Cardiovascular: Yes: AFIB, HTN, Hyperlipdemia Gastrointestinal: Yes: GERD - Past Surgical History Past Surgical History: Yes: Joint Replacement - Smoking History Smoking history: Former smoker Have you smoked in the past 12 months: No Aproximately how many cigarettes per day: 10 If you are a former smoker, when did you quit?: 01/23 - Alcohol/Substance Use Hx Alcohol Use: No History of Substance Use: reports: None - Social History Usual Living Arrangement: Yes: Alone ADL: Independent History of Recent Travel: No Home Medications - Allergies Allergies/Adverse Reactions: Allergies Allergy/AdvReac Type Severity Reaction Status Date / Time No Known Drug Allergies Allergy Verified 04/30/19 10:58 - Home Medications Home Medications: Ambulatory Orders Warfarin Na [Coumadin -] 5 mg PO DAILY@1800 04/30/19 Amiodarone HCl [Cordarone -] 200 mg PO DAILY tablet 05/04/19 traMADol HCL [Ultram -] 50 mg PO BID PRN 09/09/19 Family Medical History Family History: Unremarkable Review of Systems - Review of Systems Constitutional: reports: Weakness Eyes: reports: No Symptoms HENT: reports: No Symptoms Neck: reports: No Symptoms Cardiovascular: reports: Palpitations Respiratory: reports: SOB Gastrointestinal: reports: No Symptoms Genitourinary: reports: No Symptoms Breasts: reports: No Symptoms Reported Musculoskeletal: reports: No Symptoms Integumentary: reports: No Symptoms Neurological: reports: Weakness Endocrine: reports: No Symptoms Hematology/Lymphatic: reports: No Symptoms Psychiatric: reports: No Symptoms Pain Intensity: 0 Physical Examination Vital Signs: Vital Signs Temperature 98.3 F 09/09/19 12:26 Pulse Rate 89 09/09/19 14:44 Respiratory Rate 18 09/09/19 14:44 Blood Pressure 136/111 H 09/09/19 14:44 O2 Sat by Pulse Oximetry (%) 96 09/09/19 14:44 Constitutional: Yes: Well Nourished, No Distress, Calm Eyes: Yes: WNL, Conjunctiva Clear, EOM Intact, PERRL HENT: Yes: WNL, Atraumatic, Normocephalic Neck: Yes: WNL, Supple, Trachea Midline Cardiovascular: Yes: Pulse Irregular, Murmur (systolic), S1, S2 Respiratory: Yes: Regular, CTA Bilaterally Gastrointestinal: Yes: Normal Bowel Sounds, Soft ...Rectal Exam: Yes: Deferred Renal/: Yes: WNL Breast(s): Yes: WNL Musculoskeletal: Yes: WNL Extremities: Yes: WNL Edema: No Peripheral Pulses WNL: Yes Neurological: Yes: WNL, Alert, Oriented, Cran Nerves II-XII Intact ...Motor Strength: WNL Psychiatric: Yes: WNL, Alert, Oriented Labs: CBC, BMP 09/09/19 12:30 09/09/19 12:30 Laboratory Results - last 24 hr 09/09/19 09/09/19 09/09/19 12:30 12:30 12:30 WBC 7.5 RBC 4.52 Hgb 14.0 Hct 41.8 MCV 92.5 MCH 30.9 MCHC 33.4 RDW 13.9 Plt Count 271 MPV 10.1 D Absolute Neuts (auto) 4.7 Neutrophils % 61.8 D Lymphocytes % 25.9 D Monocytes % 9.9 Eosinophils % 1.4 D Basophils % 1.0 D Nucleated RBC % 0 PT with INR 31.20 H INR 2.62 H PTT (Actin FS) 42.0 H Sodium 140 Potassium 4.1 Chloride 107 Carbon Dioxide 23 Anion Gap 10 BUN 10.7 Creatinine 0.9 Est GFR (CKD-EPI)AfAm 66.16 Est GFR (CKD-EPI)NonAf 57.09 Random Glucose 97 Calcium 9.5 Magnesium 2.2 Total Bilirubin 1.9 H AST 27 ALT 15 Alkaline Phosphatase 115 Creatine Kinase 68 Troponin I 0.09 H Total Protein 7.5 Albumin 4.0 Urine Color Urine Appearance Urine pH Ur Specific Carmen Urine Protein Urine Glucose (UA) Urine Ketones Urine Blood Urine Nitrite Urine Bilirubin Urine Urobilinogen Ur Leukocyte Esterase Urine WBC (Auto) Urine RBC (Auto) Urine Casts (Auto) U Epithel Cells (Auto) Urine Bacteria (Auto) 09/09/19 09/09/19 13:45 15:43 WBC RBC Hgb Hct MCV MCH MCHC RDW Plt Count MPV Absolute Neuts (auto) Neutrophils % Lymphocytes % Monocytes % Eosinophils % Basophils % Nucleated RBC % PT with INR INR PTT (Actin FS) Sodium Potassium Chloride Carbon Dioxide Anion Gap BUN Creatinine Est GFR (CKD-EPI)AfAm Est GFR (CKD-EPI)NonAf Random Glucose Calcium Magnesium Total Bilirubin AST ALT Alkaline Phosphatase Creatine Kinase Troponin I 0.09 H Total Protein Albumin Urine Color Yellow Urine Appearance Clear Urine pH 5.5 Ur Specific Carmen 1.011 Urine Protein Negative Urine Glucose (UA) Negative Urine Ketones Negative Urine Blood Trace Urine Nitrite Negative Urine Bilirubin Negative Urine Urobilinogen 1.0 Ur Leukocyte Esterase Trace Urine WBC (Auto) 18 Urine RBC (Auto) 13 Urine Casts (Auto) 1 U Epithel Cells (Auto) 8 Urine Bacteria (Auto) 69 Intake & Output 09/07/19 09/08/19 09/09/19 09/10/19 23:59 23:59 23:59 23:59 Weight 54.431 kg Current Medications Generic Name Dose Route Start Last Admin Trade Name Freq PRN Reason Stop Dose Admin Amiodarone HCl 200 mg 09/10/19 10:00 Cordarone - PO DAILY [facility] Tramadol HCl 50 mg 09/09/19 21:01 09/09/19 23:46 Ultram - PO 50 mg Q8H PRN Administration PAIN LEVEL 7 - 10 Warfarin Sodium 5 mg 09/10/19 18:00 Coumadin - PO DAILY@1800 [facility] Imaging - Results Chest X-ray: Image Reviewed EKG: Image Reviewed Problem List - Problems (1) Atrial fibrillation with RVR Assessment/Plan: Continue cardiac monitoring Metoprolol IV, PO given in ED with improvement EKG reviewed- Afib with RVR, ST&T wave abnormality, consider anterolateral ischemia, prior study atypical A flutter 2:1 conduction, ST-Ts Appreciate Cardiology consult Serial Enzymes slightly elevated x1- baseline, will trend [id number] 4 Continue Amiodarone, Coumadin Echo 12/2017- lvsf-nl, EF 65-70%, LA mod dilated, mod MR, mod-sev TR, mild AR MIBI 07/2016- no ischemic ST changes, normal perfusion, nl EF Consider Echo in outpatient in lieu of COVID-19 Pandemic Monitor CMP Code(s): I48.91 - UNSPECIFIED ATRIAL FIBRILLATION (2) Elevated troponin Assessment/Plan: Likely secondary to Arrhythmia vs UT vs PE At baseline (0.2-0.9) Serial Enzymes EKG reviewed Appreciate Cardiology consult Continue cardiac monitoring Wells Score 1.5, low risk Code(s): R74.8 - ABNORMAL LEVELS OF OTHER SERUM ENZYMES (3) Weakness Assessment/Plan: Likely secondary to Arrhythmia vs Age related Will continue to monitor and treat with interventions accordingly Monitor CBC, CMP, Mg, phos Fall Precautions Monitor vitals Code(s): R53.1 - WEAKNESS (4) HLD (hyperlipidemia) Assessment/Plan: stable No current home med Low Cholesterol Diet Code(s): E78.5 - HYPERLIPIDEMIA, UNSPECIFIED (5) HTN (hypertension) Assessment/Plan: stable Monitor BP Continue home med Monitor renal function Code(s): I10 - ESSENTIAL (PRIMARY) HYPERTENSION (6) GERD (gastroesophageal reflux disease) Assessment/Plan: stable PPI Code(s): K21.9 - GASTRO-ESOPHAGEAL REFLUX DISEASE WITHOUT ESOPHAGITIS (7) Person under investigation for COVID-19 Assessment/Plan: SMART-BI TESTER 1, 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 Assessment/Plan This is a 89 y/o female with a significant history of Afib (on Coumadin, Amiodarone) s/p Ablation [facility] 2017, MR/TR, HTN, HLD, GERD. Placed in Telemetry Observation for Afib with RVR, Troponinemia for further evaluation of their emergent condition. Plan: See Problem List FEN PO fluids as tolerated Replete lytes prn Low Na, low Cholesterol Diet DVT ppx OOB SCDs Continue Coumadin Dispo: Observation Visit type - Emergency Visit Emergency Visit: Yes ED Registration Date: 09/09/19 Care time: The patient presented to the Emergency Department on the above date and was hospitalized for further evaluation of their emergent condition. - New Patient This patient is new to me today: Yes Date on this admission: 09/09/19 - Critical Care Critical Care patient: No
[2019-09-09] MEDS ORDERED: WARFARIN NA 5 MG TABLET PO ONE (21:00)
[2019-09-09] MEDS ORDERED: traMADol HCL 50 MG TABLET PO PRN (21:01)
[2019-09-09] MEDS ORDERED: WARFARIN NA 5 MG TABLET ONE (22:41)
[2019-09-09] MEDS ORDERED: traMADol HCL 50 MG TABLET ONE (23:42)
[2019-09-10 07:26] LABS: ALBUMIN 3.7 g/dl (3.4-5.0); BILIRUBIN,TOTAL 2.1 mg/dL (0.2-1); BLOOD UREA NITROGEN 13.2 mg/dL (7-18); CALCIUM 9.1 mg/dL (8.5-10.1); CREATININE 0.8 mg/dL (0.55-1.3); MAGNESIUM 2.1 mg/dL (1.8-2.4); PHOSPHOROUS 3.6 mg/dL (2.5-4.9); POTASSIUM 4.4 mmol/L (3.5-5.1); TOT PROT 7.1 g/dl (6.4-8.2)
[2019-09-10 07:55] LABS: BASO % 0.4 % (0-2.0); EOS % 0.8 % (0-4.5); HEMOGLOBIN 13.6 GM/dL (10.7-15.3); LYMPH % 22.4 % (8-40); MCH 30.1 pg (25.7-33.7); MCHC 32.3 g/dl (32.0-36.0); MEAN CELL VOLUME 93.3 fl (80-96); MEAN PLT VOLUME 9.5 fl (7.5-11.1); MONO % 8.7 % (3.8-10.2); NEUT % 67.7 % (42.8-82.8); PLATELET COUNT 214 K/MM3 (134-434); RDW 13.9 % (11.6-15.6); WHITE BLOOD COUNT 7.2 K/mm3 (4.0-10.0)
[2019-09-10 08:04] LABS: INR 2.83 (0.83-1.09); PROTHROMBIN TIME (PATIENT) 33.8 SEC (9.7-13.0)
--- NOTE | 2019-09-10 08:12 | CON.CARD ---
Consult Consult Specialty:: Cardiology Referred by:: Dr. Urban Reason for Consultation:: rapid atrial fibrillation - History of Present Illness Chief Complaint: SOB, chest tightness History of Present Illness: This is an 89 y/o female with a PMH of afib controlled with amiodarone and anticoagulated with coumadin presenting to the emergency department due to palpitations and weakness. She states that she woke up at 2 a.m. with these symptoms which "felt like her other episodes of afib." On my history, she describes palpitations but also associated SOB and chest pain/tightness mid sternal which were new for her and frightened her to come to ER. Denies fever/chills/cough or exposure to COVID. ECG: AF 114bpm, NSST changes I, avL, II avF,V3-V6 overall similar but perhaps slightly more pronounced in lateral leads c/w 04/2019 - History Source History Provided By: Patient - Past Medical History Cardio/Vascular: Yes: AFIB, HTN, Hyperlipdemia Gastrointestinal: Yes: GERD Heme/Onc: No: Anemia, B12 Deficiency, Bleeding Disorder, Cancer, Current Chemotherapy, Current Radiation Therapy, Hemochromatosis, Hypercoaguable State, Myeloproliferative Synd, Sickle Cell Disease, Sickle Cell Trait, Thrombo cytopenia, Other Infectious Disease: No: AIDS, C-Diff, Herpes Zoster, HIV, MRSA, STD's, Tuberculosis, VREF, Other Psych: No: Addictions, Anxiety, Bipolar, Depression, Panic, Psychosis, Schizophrenia, Other Musculoskeletal: No: Bursitis, Chronic low back pain, Hemiparesis, Hemiplegia, Osteoarthritis, Paraplegia, Other Rheumatology: No: Fibromyalgia, Gout, Lupus, Rheumatoid Arthritis, Sarcoidosis, Vasculitis, Other ENT: No: Allergic Rhinitis, Sinusitis, Other Endocrine: No: Supa's Disease, Rochelle's Disease, Diabetes Insipidus, Diabetes Mellitus, Hyperparathyroidism, Hyperthyroidism, Hypothyroidism, Osteopenia, SIADH, Other - Past Surgical History Past Surgical History: Yes: Joint Replacement - Alcohol/Substance Use Hx Alcohol Use: No History of Substance Use: reports: None - Smoking History Smoking history: Former smoker Have you smoked in the past 12 months: No Aproximately how many cigarettes per day: 10 If you are a former smoker, when did you quit?: 01/23 - Social History Usual Living Arrangement: Alone ADL: Independent History of Recent Travel: No Home Medications - Allergies Allergies/Adverse Reactions: Allergies Allergy/AdvReac Type Severity Reaction Status Date / Time No Known Drug Allergies Allergy Verified 04/30/19 10:58 - Home Medications Home Medications: Ambulatory Orders Warfarin Na [Coumadin -] 5 mg PO DAILY@1800 04/30/19 Amiodarone HCl [Cordarone -] 200 mg PO DAILY tablet 05/04/19 traMADol HCL [Ultram -] 50 mg PO BID PRN 09/09/19 Family Medical History Family History: Unremarkable (not pertinent to this presenation) Review of Systems Findings/Remarks: see HPI - Review of Systems Constitutional: reports: No Symptoms Eyes: reports: No Symptoms HENT: reports: No Symptoms Neck: reports: No Symptoms Cardiovascular: reports: Chest Pain, Palpitations, Shortness of Breath Respiratory: reports: SOB Gastrointestinal: denies: No Symptoms, Abdominal Pain, Bloating, Constipation, Diarrhea, Dysphagia, Indigestion, Melena, Nausea, Rectal Bleeding, Vomiting, Vomiting Blood, Other Genitourinary: denies: No Symptoms, Burning, Discharge, Dysuria, Flank Pain, Frequency, Hematuria, Incontinence, Lesions, Menses, Pain, Testicular Mass, Testicular Pain, Testicular Swelling, Urgency, Vaginal Bleeding, Other Breasts: denies: No Symptoms Reported, See HPI, Breast Implants, Discharge from Nipple, Lumps, Pain, Skin Changes, Other Musculoskeletal: denies: No Symptoms, Back Pain, Crepitus, Decreased ROM, Extremity Pain, Joint Pain, Joint Swelling, Muscle Pain, Muscle Cramps, Muscle Weakness, Other Integumentary: denies: No Symptoms, Blister, Bruising, Change in Color, Eczema, Erythema, Incision, Lesions, Lump, Pallor, Pruritis, Rash, Wound, Other Neurological: denies: No Symptoms, Change in LOC, Change in Speech, Confusion, Dizziness, Headache, Incoordination, Numbness, Parasthesia, Pre-Existing Deficit, Seizure, Syncope, Tremors, Unsteady Gait, Weakness, Other Endocrine: denies: No Symptoms, Excessive Sweating, Flushing, Increased Hunger, Increased Thirst, Intolerance to Cold, Intolerance to Heat, Unexplained Weight Gain, Unexplained Weight Loss, Other Hematology/Lymphatic: denies: No Symptoms, Easily Bruised, Excessive Bleeding, Swollen Glands, Other - Risk Factors Known Risk Factors: Yes: Age, Hypertension, Smoking Vital Signs: Vital Signs Temperature 98.3 F 09/10/19 06:02 Pulse Rate 108 H 09/10/19 07:32 Respiratory Rate 21 H 09/10/19 07:32 Blood Pressure 157/110 H 09/10/19 07:32 O2 Sat by Pulse Oximetry (%) 97 09/10/19 07:32 Constitutional: Yes: No Distress, Calm Eyes: Yes: Conjunctiva Clear, EOM Intact Neck: Yes: Supple Respiratory: Yes: Other (decreased breath sounds bases) Gastrointestinal: Yes: Soft (nt) Cardiovascular: Yes: Pulse Irregular JVD: No Murmur: Yes: Grade 3 (systolic murmur apex and axilla c/w MR) Edema: Yes Edema: LLE: 1+, RLE: 1+ Neurological: Yes: Alert, Oriented - Other Data Labs, Other Data: CBC, BMP 09/10/19 06:10 09/10/19 02:25 INR, PTT INR 2.83 (0.83-1.09) H 09/10/19 06:10 Troponin, BNP 09/09/19 09/09/19 12:30 15:43 Troponin I 0.09 H 0.09 H Troponin, BNP 09/09/19 09/09/19 12:30 15:43 Troponin I 0.09 H 0.09 H Laboratory Tests 09/09/19 09/09/19 12:30 15:43 Creatine Kinase 68 Troponin I 0.09 H 0.09 H Laboratory Tests 09/09/19 09/09/19 09/10/19 12:30 15:43 02:25 INR Creatinine 0.8 Troponin I 0.09 H 0.09 H 09/10/19 06:10 INR 2.83 H Creatinine Troponin I see HPI Echo: Report Reviewed (12/2018: EF 65%, Moderate MR, RVSP 46) Stress Echo: Other (Lexiscan MPI 09/2018: no ischemia, EF 65%) Imaging - Results Chest X-ray: Image Reviewed (no clear infiltrate, no effusion) Assessment/Plan IMP: Dyspnea Permanent AF , with hx of ablation Mitral regurgitation PHTN Equivocal TnI REC: 1. Dyspnea: -etiology is unclear: heart rate does not seem elevated enough to have caused her symptoms, although may have been more rapid at home -Other considerations : worsened MR? PHTN? underlying ischemia? Do not suspect PE at this time (no obvious risk factor, on therapeutic AC) -Telemetry for observation of heart rate trend -Echo for EF and f/u on MR severity -BNP -Can give trial of lasix, follow weight/renal fxn -when COVID resulted, consider repeat stress test (Lexiscan MPI 09/2018 WNL) now with chest discomfort/equivocal TnI 2. AF: -Continue home meds -Tele -INR 2-3 3. MR: -update echo as above 4. PHTN: -chronic -Likely due to left sided dz- MR/diastolic dysfx; for updated echo 5. Equivocal TnI: -flat trend, doubt ACS/type I WI -probably due to demand ischemia in setting of AF with mild / moderately elevated rates, possible mild volume overload -Trial of diuretic, rate control and consideration of repeat ischemic evaluation prior to DC
[2019-09-10] MEDS ORDERED: AMIODARONE HCL 200 MG TABLET ONE (09:33)
[2019-09-10] MEDS ORDERED: PANTOPRAZOLE SODIUM 40 MG VIAL ONE (09:33)
[2019-09-10] MEDS: PANTOPRAZOLE SODIUM 40 MG VIAL IVPUSH SCH (09:50)
[2019-09-10] MEDS: AMIODARONE HCL 200 MG TABLET PO SCH (09:50)
--- NOTE | 2019-09-10 10:59 | PN ---
Progress Note, Physician - Current Medication List Current Medications: Active Medications Amiodarone HCl (Cordarone -) 200 mg PO DAILY COUNT INCLUDES [facility] Last Admin: 09/10/19 09:50 Dose: 200 mg Documented by: Pantoprazole Sodium (Protonix Iv) 40 mg IVPUSH DAILY COUNT INCLUDES THE [facility] Last Admin: 09/10/19 09:50 Dose: 40 mg Documented by: Tramadol HCl (Ultram -) 50 mg PO Q8H PRN PRN Reason: PAIN LEVEL 7 - 10 Last Admin: 09/09/19 23:46 Dose: 50 mg Documented by: Warfarin Sodium (Coumadin -) 5 mg PO DAILY@1800 COUNT INCLUDES THE [facility] - Objective Vital Signs: Vital Signs Temperature 98.3 F 09/10/19 06:02 Pulse Rate 109 H 09/10/19 09:49 Respiratory Rate 21 H 09/10/19 09:49 Blood Pressure 142/92 09/10/19 09:49 O2 Sat by Pulse Oximetry (%) 98 09/10/19 09:49 Cardiovascular: Yes: Tachycardia, Pulse Irregular, S1, S2 Respiratory: Yes: Regular, CTA Bilaterally Edema: No Labs: CBC, BMP 09/10/19 06:10 09/10/19 02:25 INR, PTT INR 2.83 (0.83-1.09) H 09/10/19 06:10 Problem List - Problems (1) Atrial fibrillation with RVR Assessment/Plan: Continue cardiac monitoring Metoprolol IV, PO given in ED with improvement Appreciate Cardiology consult Serial Enzymes slightly elevated x2- baseline, will trend Continue Amiodarone, Coumadin Echo 12/2017- lvsf-nl, EF 65-70%, LA mod dilated, mod MR, mod-sev TR, mild AR MIBI 07/2016- no ischemic ST changes, normal perfusion, nl EF Code(s): I48.91 - UNSPECIFIED ATRIAL FIBRILLATION (2) Dyspnea Assessment/Plan: Likely secondary to Arrhythmia vs Age related Will continue to monitor and treat with interventions accordingly Monitor CBC, CMP Monitor vitals Code(s): R06.00 - DYSPNEA, UNSPECIFIED Qualifiers: Dyspnea type: dyspnea on exertion Qualified Code(s): R06.00 - Dyspnea, unspecified (3) Elevated troponin Assessment/Plan: Likely secondary to Arrhythmia Serial Enzymes EKG reviewed Appreciate Cardiology consult Continue cardiac monitoring Code(s): R74.8 - ABNORMAL LEVELS OF OTHER SERUM ENZYMES (4) Person under investigation for COVID-19 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
[2019-09-10] MEDS ORDERED: metoPROLOL SUCCINATE 25 MG TAB.SR.24H (FP) ONE (11:30)
[2019-09-10] MEDS: metoPROLOL SUCCINATE 25 MG TAB.SR.24H (FP) PO SCH (11:39)
[2019-09-10] MEDS ORDERED: FUROSEMIDE 20 MG TABLET (FP) PO SCH (14:00)
[2019-09-10 14:06] LABS: N-TERMINAL BNP 6970.8 pg/ml (5-450)
--- NOTE | 2019-09-10 14:06 | EKG ---
Test Reason : Blood Pressure : / mmHG Vent. Rate : 114 BPM Atrial Rate : 125 BPM P-R Int : 000 ms QRS Dur : 084 ms QT Int : 302 ms P-R-T Axes : 000 006 211 degrees QTc Int : 416 ms ATRIAL FIBRILLATION WITH RAPID VENTRICULAR RESPONSE ABNORMAL ECG WHEN COMPARED WITH ECG OF 01-MAY-2019 11:45, Confirmed by DAMON SO MD ([id number]) on 09/10/2019 2:06:15 PM Referred By: Confirmed By:DAMON SO MD
[2019-09-10] MEDS ORDERED: FUROSEMIDE 40 MG/4 ML INJECTABLE VIAL IVPUSH ONE (14:45)
[2019-09-10] MEDS ORDERED: FUROSEMIDE 40 MG/4 ML INJECTABLE VIAL ONE (15:12)
[2019-09-10] MEDS ORDERED: FUROSEMIDE 40 MG TABLET (FP) ONE (15:12)
[2019-09-10] MEDS ORDERED: WARFARIN NA 5 MG TABLET ONE (18:30)
[2019-09-10] MEDS: WARFARIN NA 5 MG TABLET PO SCH (18:35)
[2019-09-11 08:05] LABS: INR 2.98 (0.83-1.09); PROTHROMBIN TIME (PATIENT) 35.6 SEC (9.7-13.0)
[2019-09-11 08:20] LABS: BLOOD UREA NITROGEN 16.6 mg/dL (7-18); CALCIUM 8.9 mg/dL (8.5-10.1); POTASSIUM 3.3 mmol/L (3.5-5.1)
[2019-09-11] MEDS ORDERED: POTASSIUM CHLORIDE TABS 10 MEQ TABLET.ER (FP) PO ONE (08:59)
--- NOTE | 2019-09-11 09:00 | PN ---
Progress Note, Physician - Current Medication List Current Medications: Active Medications Amiodarone HCl (Cordarone -) 200 mg PO DAILY [facility] Last Admin: 09/10/19 09:50 Dose: 200 mg Documented by: Furosemide (Lasix Injection -) 40 mg IVPUSH DAILY [facility] Metoprolol Succinate (Toprol Xl -) 12.5 mg PO DAILY [facility] Last Admin: 09/10/19 11:39 Dose: 12.5 mg Documented by: Pantoprazole Sodium (Protonix Iv) 40 mg IVPUSH DAILY [facility] Last Admin: 09/10/19 09:50 Dose: 40 mg Documented by: Tramadol HCl (Ultram -) 50 mg PO Q8H PRN PRN Reason: PAIN LEVEL 7 - 10 Last Admin: 09/09/19 23:46 Dose: 50 mg Documented by: Warfarin Sodium (Coumadin -) 5 mg PO DAILY@1800 [facility] Last Admin: 09/10/19 18:35 Dose: 5 mg Documented by: - Objective Vital Signs: Vital Signs Temperature 98.0 F 09/11/19 08:55 Pulse Rate 90 09/11/19 08:55 Respiratory Rate 20 09/11/19 08:55 Blood Pressure 127/79 09/11/19 08:55 O2 Sat by Pulse Oximetry (%) 96 09/11/19 05:00 Cardiovascular: Yes: Regular Rate and Rhythm Respiratory: Yes: Regular, CTA Bilaterally Gastrointestinal: Yes: Normal Bowel Sounds, Soft. No: Tenderness Labs: CBC, BMP 09/10/19 06:10 09/11/19 06:40 INR, PTT INR 2.98 (0.83-1.09) H 09/11/19 06:40 Problem List - Problems (1) Atrial fibrillation with RVR Assessment/Plan: Continue cardiac monitoring Metoprolol IV, PO given in ED with improvement Appreciate Cardiology consult Serial Enzymes slightly elevated x2- baseline, will trend Continue Amiodarone,metoprolol and Coumadin Echo 12/2017- lvsf-nl, EF 65-70%, LA mod dilated, mod MR, mod-sev TR, mild AR MIBI 07/2016- no ischemic ST changes, normal perfusion, nl EF Code(s): I48.91 - UNSPECIFIED ATRIAL FIBRILLATION (2) Dyspnea Assessment/Plan: Likely secondary to Arrhythmia vs Age related Will continue to monitor and treat with interventions accordingly Monitor CBC, CMP Monitor vitals Code(s): R06.00 - DYSPNEA, UNSPECIFIED Qualifiers: Dyspnea type: dyspnea on exertion Qualified Code(s): R06.00 - Dyspnea, unspecified (3) Elevated troponin Assessment/Plan: Likely secondary to Arrhythmia Serial Enzymes EKG reviewed Appreciate Cardiology consult Continue cardiac monitoring Code(s): R74.8 - ABNORMAL LEVELS OF OTHER SERUM ENZYMES (4) Person under investigation for COVID-19 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
[2019-09-11] MEDS: metoPROLOL SUCCINATE 25 MG TAB.SR.24H (FP) PO SCH (09:23)
[2019-09-11] MEDS: AMIODARONE HCL 200 MG TABLET PO SCH (09:27)
[2019-09-11] MEDS: PANTOPRAZOLE SODIUM 40 MG VIAL IVPUSH SCH (09:28)
[2019-09-11] MEDS ORDERED: FUROSEMIDE 40 MG/4 ML INJECTABLE VIAL IVPUSH SCH (10:00)
--- NOTE | 2019-09-11 11:49 | PN ---
Progress Note (short form) - Note Progress Note: s: no cp sob palps dizzy; feels well asking to go home Current Medications Generic Name Dose Route Start Last Admin Trade Name Fina PRN Reason Stop Dose Admin Amiodarone HCl 200 mg 09/10/19 10:00 09/11/19 09:27 Cordarone - PO 200 mg DAILY VANESA Administration Furosemide 40 mg 09/11/19 10:00 09/11/19 09:28 Lasix Injection - IVPUSH 40 mg DAILY VANESA Administration Metoprolol Succinate 12.5 mg 09/10/19 11:30 09/11/19 09:23 Toprol Xl - PO 12.5 mg DAILY VANESA Administration Pantoprazole Sodium 40 mg 09/10/19 10:00 09/11/19 09:28 Protonix Iv IVPUSH 40 mg DAILY VANESA Administration Tramadol HCl 50 mg 09/09/19 21:01 09/09/19 23:46 Ultram - PO 50 mg Q8H PRN Administration PAIN LEVEL 7 - 10 Warfarin Sodium 5 mg 09/10/19 18:00 09/10/19 18:35 Coumadin - PO 5 mg DAILY@1800 VANESA Administration Vital Signs Period Temp Pulse Resp BP Sys/Lucero Pulse Ox Last 24 Hr 97.9 F-98.4 F 87-101 20-24 109-131/72-79 96-96 Constitutional: Yes: No Distress, Calm Eyes: Yes: Conjunctiva Clear Neck: Yes: Supple Respiratory: cta bl nl eff Gastrointestinal: Yes: Soft (nt) Cardiovascular: Yes: Pulse Irregular JVD: No Murmur: Yes: Grade 3 (systolic murmur apex and axilla c/w MR) Edema: no Neurological: Yes: Alert, Oriented CBC, BMP 09/10/19 06:10 09/11/19 06:40 tele: afib, rate controlled see HPI Echo: Report Reviewed (12/2018: EF 65%, Moderate MR, RVSP 46) Stress Echo: Other (Lexiscan MPI 09/2018: no ischemia, EF 65%) Imaging - Results Chest X-ray: Image Reviewed (no clear infiltrate, no effusion) Assessment/Plan IMP: Dyspnea Permanent AF , with hx of ablation Mitral regurgitation PHTN Equivocal TnI REC: 1. acute diastolic chf, Dyspnea: -heart rate does not seem elevated enough to have caused her symptoms, although may have been more rapid at home. after getting iv lasix she feels better now, lungs clear. -no signs acs, trops at baseline. recent echo and mibi unremarkable. -can dc with lasix po 20 qd. can f/u outpt for updated echo. 2. AFib: -Continue home meds -rate controlled on tele -INR 2-3
[2019-09-11] MEDS: WARFARIN NA 5 MG TABLET PO SCH (17:37)
--- NOTE | 2019-09-12 08:49 | DS ---
Physical Examination Vital Signs: Vital Signs Temperature 97.9 F 09/12/19 06:00 Pulse Rate 92 H 09/12/19 06:00 Respiratory Rate 20 09/12/19 06:00 Blood Pressure 109/81 09/12/19 06:00 O2 Sat by Pulse Oximetry (%) 94 L 09/11/19 23:00 Cardiovascular: Yes: S1, S2 Respiratory: Yes: Regular, CTA Bilaterally Gastrointestinal: Yes: Normal Bowel Sounds, Soft Edema: No Labs: CBC, BMP 09/10/19 06:10 Discharge Summary Problems reviewed: Yes Reason For Visit: PALPITATIONS/ACUTE CORONARY SYNDROME/ATRIAL FIB Current Active Problems Afib (Acute) Atrial fibrillation with RVR (Acute) Dyspnea (Acute) EKG abnormalities (Acute) Elevated troponin (Acute) GERD (gastroesophageal reflux disease) (Acute) HLD (hyperlipidemia) (Acute) Person under investigation for COVID-19 (Acute) Hospital Course: - Problems (1) Atrial fibrillation with RVR Assessment/Plan: Continue cardiac monitoring Metoprolol IV, PO given in ED with improvement Appreciate Cardiology consult Serial Enzymes slightly elevated x2- baseline, will trend Continue Amiodarone,metoprolol and Coumadin Echo 12/2017- lvsf-nl, EF 65-70%, LA mod dilated, mod MR, mod-sev TR, mild AR MIBI 07/2016- no ischemic ST changes, normal perfusion, nl EF Code(s): I48.91 - UNSPECIFIED ATRIAL FIBRILLATION (2) Dyspnea Assessment/Plan: Likely secondary to Arrhythmia vs Age related Will continue to monitor and treat with interventions accordingly Monitor CBC, CMP Monitor vitals Code(s): R06.00 - DYSPNEA, UNSPECIFIED Qualifiers: Dyspnea type: dyspnea on exertion Qualified Code(s): R06.00 - Dyspnea, unspecified (3) Elevated troponin Assessment/Plan: Likely secondary to Arrhythmia Serial Enzymes EKG reviewed Appreciate Cardiology consult Continue cardiac monitoring Code(s): R74.8 - ABNORMAL LEVELS OF OTHER SERUM ENZYMES (4) Person under investigation for COVID-19 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, 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 Condition: Stable - Instructions Referrals: Tisha Urban MD [Primary Care Provider] - 2 Weeks - Home Medications Comprehensive Discharge Medication List: Ambulatory Orders Warfarin Na [Coumadin -] 5 mg PO DAILY@1800 04/30/19 Amiodarone HCl [Cordarone -] 200 mg PO DAILY tablet 05/04/19 traMADol HCL [Ultram -] 50 mg PO BID PRN 09/09/19 Furosemide [Lasix -] 20 mg PO DAILY #30 tablet 09/12/19 Metoprolol Succinate [Toprol XL -] 12.5 mg PO DAILY #30 tab.sr.24h 09/12/19 Pantoprazole Sodium [Protonix -] 40 mg PO DAILY #30 tablet.ec 09/12/19
[2019-09-12 08:55] LABS: BLOOD UREA NITROGEN 16.3 mg/dL (7-18); POTASSIUM 3.6 mmol/L (3.5-5.1)
[2019-09-12] MEDS: AMIODARONE HCL 200 MG TABLET PO SCH (09:41)
[2019-09-12] MEDS: metoPROLOL SUCCINATE 25 MG TAB.SR.24H (FP) PO SCH (09:41)
[2019-09-12] MEDS: PANTOPRAZOLE SODIUM 40 MG VIAL IVPUSH SCH (09:42)
[2019-09-12] MEDS ORDERED: FUROSEMIDE 20 MG TABLET (FP) PO SCH (10:00)
[2019-09-12 11:26] VITALS: BP 118/72; PULSE 73; TEMP 97.8
--- NOTE | 2019-09-12 12:41 | PN ---
Progress Note (short form) - Note Progress Note: s: no cp sob palps dizzy Current Medications Generic Name Dose Route Start Last Admin Trade Name Freq PRN Reason Stop Dose Admin Amiodarone HCl 200 mg 09/10/19 10:00 09/12/19 09:41 Cordarone - PO 200 mg DAILY VANESA Administration Furosemide 20 mg 09/12/19 10:00 09/12/19 09:42 Lasix - PO 20 mg DAILY VANESA Administration Metoprolol Succinate 12.5 mg 09/10/19 11:30 09/12/19 09:41 Toprol Xl - PO 12.5 mg DAILY VANESA Administration Pantoprazole Sodium 40 mg 09/10/19 10:00 09/12/19 09:42 Protonix Iv IVPUSH 40 mg DAILY VANESA Administration Tramadol HCl 50 mg 09/09/19 21:01 09/09/19 23:46 Ultram - PO 50 mg Q8H PRN Administration PAIN LEVEL 7 - 10 Warfarin Sodium 5 mg 09/10/19 18:00 09/11/19 17:37 Coumadin - PO 5 mg DAILY@1800 VANESA Administration Vital Signs Period Temp Pulse Resp BP Sys/Lucero Pulse Ox Last 24 Hr 97.5 F-98.2 F 73-96 18-20 99-118/57-81 94 Constitutional: Yes: No Distress, Calm Eyes: Yes: Conjunctiva Clear Neck: Yes: Supple Respiratory: cta bl nl eff Gastrointestinal: Yes: Soft (nt) Cardiovascular: Yes: Pulse Irregular JVD: No Murmur: Yes: Grade 3 (systolic murmur apex and axilla c/w MR) Edema: no Neurological: Yes: Alert, Oriented tele: afib, rate controlled see HPI Echo: Report Reviewed (12/2018: EF 65%, Moderate MR, RVSP 46) Stress Echo: Other (Lexiscan MPI 09/2018: no ischemia, EF 65%) Imaging - Results Chest X-ray: Image Reviewed (no clear infiltrate, no effusion) Assessment/Plan IMP: Dyspnea Permanent AF , with hx of ablation Mitral regurgitation PHTN Equivocal TnI REC: 1. acute diastolic chf, Dyspnea: -heart rate does not seem elevated enough to have caused her symptoms, although may have been more rapid at home - improved with IV lasix -no signs acs, trops at baseline. recent echo and mibi unremarkable. -can dc with lasix po 20 qd. can f/u outpt for updated echo. 2. AFib: -Continue home meds -rate controlled on tele -INR 2-3
== END 2019-09-12 13:30 | disposition home or self-care (01) ==
LOC: JER 12:13 → JERBED 17:24 → J4S 09-10 19:43
PROVIDERS: ADMIT Family Medicine; ATTEND Family Medicine
PROC: 3E033GC Introduction of Other Therapeutic Substance into Peripheral Vein, Percutaneous Approach (ICD-10-PCS; principal; 2019-09-09)
PROC: 3E0337Z Introduction of Electrolytic and Water Balance Substance into Peripheral Vein, Percutaneous Approach (ICD-10-PCS; 2019-09-09)
DX: I48.91 Unspecified atrial fibrillation (principal); Z79.01 Long term (current) use of anticoagulants; R06.00 Dyspnea, unspecified; J44.9 Chronic obstructive pulmonary disease, unspecified; I34.0 Nonrheumatic mitral (valve) insufficiency; I50.33 Acute on chronic diastolic (congestive) heart failure; K57.92 Diverticulitis of intestine, part unspecified, without perforation or abscess without bleeding; M19.90 Unspecified osteoarthritis, unspecified site; R79.89 Other specified abnormal findings of blood chemistry; R94.31 Abnormal electrocardiogram [ECG] [EKG]; Z87.891 Personal history of nicotine dependence; K21.9 Gastro-esophageal reflux disease without esophagitis; E78.5 Hyperlipidemia, unspecified
CPT/HCPCS: 36415; 71046-TC-FY; 80048; 80053; 81003; 82550; 83735; 83880; 84100; 84443; 84484; 85025; 85610; 85730; 87077; 87086; 93005; 93010; 96374; 96375; 99285-25; G0378; U0003

== ENCOUNTER 2019-11-05 10:42 | Inpatient (IN) | payer OTHER, MEDICARE ==
--- NOTE | 2019-11-05 10:51 | PDOC ---
History of Present Illness - General Chief Complaint: Palpitations Stated Complaint: A-FIB Time Seen by Provider: 11/05/19 10:49 - History of Present Illness Initial Comments: HPI Pt is an 89yo F with PMH of Afib on Coumadin and amiodarone who presents with weakness and SOB. Pt states that she felt weak and SOB all day yesterday and into this am. Currently denies SOB, but continues to report generalized weakness. States that she usually walks with cane, has been using walker more, has had difficulty ambulating since yesterday. Reports palpitations yesterday, but currently denies. Denies chest pain, peripheral edema, f/c, abdominal pain, n/v. PCP: Angelica Cards: Amita PMH: Afib Meds: see chart Allergies: NKDA Review of Systems CONSTITUTIONAL:see HPI HEENT:denies rhinorrhea, nasal congestion, sore throat CARDIOVASCULAR:see HPI RESPIRATORY:reports shortness of breath; denies cough wheezing, hemoptysis GASTROINTESTINAL: denies abdominal pain, nausea, vomiting, diarrhea, constipation, melena, hematochezia GENITOURINARY:denies dysuria, frequency, urgency, hematuria, flank pain MUSCULOSKELETAL:denies myalgia, arthralgia HEMATOLOGIC/IMMUNOLOGIC:denies easy bleeding, easy bruising ENDOCRINE: denies unexplained weight gain, unexplained weight loss NEUROLOGIC:denies headache, loss of consciousness, focal weakness or paresthesias, dizziness, mental status changes, bladder or bowel incontinence SKIN:denies rash, itching, pallor Physical Exam General: awake, alert, fully oriented, in no acute distress, well developed, well nourished Head: normocephalic, atraumatic Eyes: PERRL, anicteric sclera, conjunctiva clear ENT: Auricles normal inspection, hearing grossly normal, oropharynx clear without exudates, moist mucous membranes Neck: supple, normal ROM Lung: equal breath sounds b/l, CTA b/l, no crackles, wheezes; no distress, s peaks full sentences Heart: RRR, normal S1, S2, systolic murmur heard loudest at apex; De [place]sets s ign Abdomen: soft, non tender, normoactive bowel sounds, no guarding, rebound, masses Extremities: no edema, no erythema or tenderness, DP/PT pulses 2+ and symmetric Neuro: CN2-12 grossly intact, moves all extremities, normal speech, sensation intact; 5/5 motor strength in bl LE and UE Skin: warm, dry, no rashes or lesions noted MDM Pt is an 89yo F with PMH of Afib on Coumadin and amiodarone who presents with weakness and SOB. DDx including but not limited to: ACS, Afib w/RVR, CHF Workup: labs, cxr, ekg EKG: normal sinus rhythm, HR 64bpm, CT 168ms, QRS 88ms, QTc 336ms, nonspecific ST changes CXR - no pneumothorax or pleural effusion. midline airway, appropriate vascular markings, no blunting of costophrenic angle, no cardiomegaly, as read by ED staff Labs: no leukocytosis, no anemia, therapeutic INR, electrolytes WNL, elevated troponin (0.11), elevated BNP (~3000) UA: 2+LE, +bacteria in urine, patient denies urinary symptoms Discussed pt with Dr. Whitney who recommended obs for troponin trend. Discussed pt with Dr. Urban who accepted care of patient Disposition: Admit Past History - Medical History Allergies/Adverse Reactions: Allergies Allergy/AdvReac Type Severity Reaction Status Date / Time No Known Drug Allergies Allergy Verified 11/05/19 10:46 Home Medications: Ambulatory Orders Warfarin Na [Coumadin -] 5 mg PO DAILY@1800 04/30/19 Amiodarone HCl [Cordarone -] 200 mg PO DAILY tablet 05/04/19 traMADol HCL [Ultram -] 50 mg PO BID PRN 09/09/19 Pantoprazole Sodium [Protonix -] 40 mg PO DAILY #30 tablet.ec 09/12/19 Anemia: No Asthma: No Cancer: No Cardiac Disorders: Yes (A-Fib, MVRegurg) CVA: No COPD: No CHF: No Dementia: No Diabetes: No GI Disorders: No Disorders: No HTN: No Hypercholesterolemia: Yes Liver Disease: No Seizures: No Thyroid Disease: No - Surgical History Abdominal Surgery: No Appendectomy: Yes (1950s) Cardiac Surgery: Yes (ablation) Cholecystectomy: No Lung Surgery: No Neurologic Surgery: No Orthopedic Surgery: No - Immunization History Immunization Up to Date: Yes - Psycho-Social/Smoking History Smoking Status: Yes Smoking History: Never smoked Have you smoked in the past 12 months: No Number of Cigarettes Smoked Daily: 10 If you are a former smoker, when did you quit?: 01/23 'Breaking Loose' booklet given: 12/21/17 - Substance Abuse Hx (Audit-C & DAST Scrn) How often the patient has a drink containing alcohol: Never Score: In Men: 4 or > Positive; In Women: 3 or > Positive: 0 Screen Result (Pos requires Nsg. Audit-10AR): Negative *Physical Exam - Vital Signs Last Vital Signs Temp Pulse Resp BP Pulse Ox 97 F L 67 18 95/45 L 99 11/05/19 10:44 11/05/19 10:44 11/05/19 10:44 11/05/19 10:44 11/05/19 10:44 ED Treatment Course - LABORATORY CBC & Chemistry Diagram: 11/06/19 05:30 11/06/19 05:30 Discharge - Discharge Information Problems reviewed: Yes Clinical Impression/Diagnosis: Elevated troponin Afib Qualifiers: Atrial fibrillation type: unspecified Qualified Code(s): I48.91 - Unspecified atrial fibrillation Condition: Stable - Admission Yes - Follow up/Referral - Patient Discharge Instructions - Post Discharge Activity
[2019-11-05 12:09] LABS: INR 2.55 (0.83-1.09); PROTHROMBIN TIME (PATIENT) 30.4 SEC (9.7-13.0)
[2019-11-05 12:37] LABS: BASO % 0.9 % (0-2.0); EOS % 0.5 % (0-4.5); HEMATOCRIT 44.7 % (32.4-45.2); HEMOGLOBIN 14.7 GM/dL (10.7-15.3); LYMPH % 29.6 % (8-40); MCH 29.7 pg (25.7-33.7); MCHC 32.8 g/dl (32.0-36.0); MEAN CELL VOLUME 90.6 fl (80-96); MEAN PLT VOLUME 8.9 fl (7.5-11.1); MONO % 9.1 % (3.8-10.2); NEUT % 59.9 % (42.8-82.8); PLATELET COUNT 235 K/MM3 (134-434); RBC 4.93 M/mm3 (3.60-5.2); RDW 15.5 % (11.6-15.6); WHITE BLOOD COUNT 6.2 K/mm3 (4.0-10.0)
--- NOTE | 2019-11-05 13:04 | PDOC ---
Documentation entered by Dwayne Gandhi SCRIBE, acting as scribe for Benton Ag MD. Benton Ag MD: This documentation has been prepared by the Hiram mejia Angel, SCRIBE, under my direction and personally reviewed by me in its entirety. I confirm that the documentation accurately reflects all work, treatment, procedures, and medical decision making performed by me. Attending Attestation - Resident Resident Name: Alessandra Noela - ED Attending Attestation I have performed the following: I have examined & evaluated the patient, The case was reviewed & discussed with the resident, I agree w/resident's findings & plan, Exceptions are as noted - HPI HPI: 11/05/19 12:37 The patient is an 89 year old female with a significant past medical history of Afib (on coumadin and amiodarone) who presents to the ED with SOB and generalized weakness . The patient states she felt weak, had palpitations and was experiencing SOB all day yesterday. The patient states she slept fine all night and when she woke up she was fine. After getting in the shower this morning she states she began experiencing palpitations again. The patient denies abdominal pain, chest pain, cough, N/V/D or fever/chills. The patient states currently in the ED she feels much better, however still feels generally weak. - Physicial Exam PE: 11/05/19 12:04 GENERAL: The patient is awake, alert, and fully oriented, Nontoxic - in no acute distress. HEAD: Normocephalic, atraumatic. EYES: extraocular movements intact, sclera anicteric, conjunctiva clear. ENT: Normal voice, Moist mucous membranes. NECK: Normal range of motion, supple LUNGS: Breath sounds equal, clear to auscultation bilaterally. No wheezes, no rhonchi, no rales. HEART: Regular rate and rhythm, normal S1 and S2 without murmur, rub or gallop. ABDOMEN: Soft, nontender, No guarding, no rebound. No CVA tenderness EXTREMITIES: Normal range of motion, no edema. NEUROLOGICAL: No facial assymetry, Normal speech, PSYCH: Normal mood, normal affect. SKIN: Warm, Dry, normal turgor, - Medical Decision Making 11/05/19 12:04 89y F hx of afib on coumamdin and amiodarone presenting with palpitatins and g eneralized weakness yesterday and again this morning, currently resolved. no associated pain, n/v/diaphoresis, diarrhea, melena, dysuria, cough, sob,leg swelling. upon arrival, pts ekg noted for NSR possible run of afib that resolved will ck labs, ekg, cxr, ua will place pt on certified recreational therapist and dw cardiology 11/05/19 14:20 labs reviewed original bp borderline hypotensive, repeat noramlized noted for trop of .11 will obs to trend, dw cardiology no arrythmias noted on montior 11/05/19 14:21 Heart Score/ECG Review - ECG Impressions Comment:: 11/05/19 12:06 Twelve-lead EKG was performed and reviewed by me. There is normal sinus rhythm with a normal rate. Rate of 64 Normal axis Normal intervals Discharge - Discharge Information Problems reviewed: Yes Clinical Impression/Diagnosis: Elevated troponin Afib Qualifiers: Atrial fibrillation type: unspecified Qualified Code(s): I48.91 - Unspecified atrial fibrillation Condition: Stable Disposition: VNS/HOME HEALTH CARE - Follow up/Referral - Patient Discharge Instructions - Post Discharge Activity
[2019-11-05 13:09] LABS: ALBUMIN 3.8 g/dl (3.4-5.0); BILIRUBIN,TOTAL 1.4 mg/dL (0.2-1); BLOOD UREA NITROGEN 16.8 mg/dL (7-18); CALCIUM 9.4 mg/dL (8.5-10.1); MAGNESIUM 2.1 mg/dL (1.8-2.4); POTASSIUM 4.3 mmol/L (3.5-5.1); TOT PROT 7.4 g/dl (6.4-8.2)
[2019-11-05] MEDS ORDERED: SODIUM CHLORIDE 500 ML IV SCH (13:45)
[2019-11-05 15:06] LABS: EPI CELLS 16 /uL (0-25.1); HYALINE CASTS 7 /uL (0-3.1); PH,URINE 5.5 (5.0-8.0); URINE APPEARANCE CLEAR; URINE BACTERIA 228 /uL (0-1359); URINE BILIRUBIN NEGATIVE (NEGATIVE); URINE COLOR YELLOW; URINE GLUCOSE (UA) NEGATIVE (NEGATIVE); URINE KETONE NEGATIVE (NEGATIVE); URINE LEUK ESTERASE 2+ (NEGATIVE); URINE NITRITE NEGATIVE (NEGATIVE); URINE PROTEIN TRACE (NEGATIVE); URINE RBC 22 /uL (0-23.9); URINE UROBILINOGEN 0.2 mg/dL (0.2-1.0); URINE WBC 137 /uL (0-25.8)
[2019-11-05] MEDS ORDERED: traMADol HCL 50 MG TABLET PO PRN (16:05)
[2019-11-05] MEDS ORDERED: ACETAMINOPHEN 325 MG TABLET (FP) PO PRN (16:05)
[2019-11-05] MEDS ORDERED: CEFTRIAXONE 1 GM/50 ML BAG ONE (17:12)
[2019-11-05] MEDS ORDERED: WARFARIN NA 5 MG TABLET ONE (17:12)
[2019-11-05] MEDS: CEFTRIAXONE 1 GM in DEXTROSE 5%-WATER - 50 ML IVPB SCH (17:54)
[2019-11-05] MEDS: WARFARIN NA 5 MG TABLET PO SCH (17:54)
[2019-11-06 00:22] VITALS: BMI 22.4
[2019-11-06 06:51] LABS: HEMATOCRIT 41.1 % (32.4-45.2); HEMOGLOBIN 13.9 GM/dL (10.7-15.3); MCH 30.1 pg (25.7-33.7); MCHC 33.7 g/dl (32.0-36.0); MEAN CELL VOLUME 89.3 fl (80-96); MEAN PLT VOLUME 9.5 fl (7.5-11.1); PLATELET COUNT 214 K/MM3 (134-434); RBC 4.61 M/mm3 (3.60-5.2); RDW 15.3 % (11.6-15.6); WHITE BLOOD COUNT 6.4 K/mm3 (4.0-10.0)
[2019-11-06 06:58] LABS: INR 2.46 (0.83-1.09); PROTHROMBIN TIME (PATIENT) 29.3 SEC (9.7-13.0)
[2019-11-06 07:24] LABS: ALBUMIN 3.7 g/dl (3.4-5.0); BILIRUBIN,TOTAL 1.9 mg/dL (0.2-1); BLOOD UREA NITROGEN 16.5 mg/dL (7-18); CALCIUM 9.1 mg/dL (8.5-10.1); POTASSIUM 4.1 mmol/L (3.5-5.1); TOT PROT 7.1 g/dl (6.4-8.2)
--- NOTE | 2019-11-06 08:05 | HP ---
Admitting History and Physical - Primary Care Physician PCP: Tisha Urban - Admission Chief Complaint: WEAKNESS/UTI/CHF History of Present Illness: 89y F hx of afib on coumamdin and amiodarone presenting with palpitatins and generalized weakness yesterday and again this morning, currently resolved. no associated pain, n/v/diaphoresis, diarrhea, melena, dysuria, cough, sob,leg swelling. History Source: Patient - Past Medical History Cardiovascular: Yes: AFIB, HTN, Hyperlipdemia Gastrointestinal: Yes: GERD ...: No - Past Surgical History Past Surgical History: Yes: Joint Replacement - Smoking History Smoking history: Former smoker Have you smoked in the past 12 months: No Aproximately how many cigarettes per day: 0 If you are a former smoker, when did you quit?: 01/23 - Alcohol/Substance Use Hx Alcohol Use: No History of Substance Use: reports: None - Social History ADL: Independent History of Recent Travel: No Home Medications - Allergies Allergies/Adverse Reactions: Allergies Allergy/AdvReac Type Severity Reaction Status Date / Time No Known Drug Allergies Allergy Verified 11/05/19 10:46 - Home Medications Home Medications: Ambulatory Orders Warfarin Na [Coumadin -] 5 mg PO DAILY@1800 04/30/19 Amiodarone HCl [Cordarone -] 200 mg PO DAILY tablet 05/04/19 traMADol HCL [Ultram -] 50 mg PO BID PRN 09/09/19 Pantoprazole Sodium [Protonix -] 40 mg PO DAILY #30 tablet.ec 09/12/19 Review of Systems - Review of Systems Constitutional: reports: Weakness Eyes: reports: No Symptoms HENT: reports: No Symptoms Neck: reports: No Symptoms Cardiovascular: reports: Palpitations Respiratory: reports: SOB Genitourinary: reports: No Symptoms Musculoskeletal: reports: Muscle Weakness Endocrine: reports: Other Psychiatric: reports: No Symptoms Physical Examination Vital Signs: Vital Signs Temperature 98.2 F 11/06/19 04:00 Pulse Rate 65 11/06/19 04:00 Respiratory Rate 16 11/06/19 04:00 Blood Pressure 158/75 11/06/19 04:00 O2 Sat by Pulse Oximetry (%) 99 11/06/19 04:00 Constitutional: Yes: Mild Distress Cardiovascular: Yes: Pulse Irregular Respiratory: Yes: Regular Gastrointestinal: Yes: Soft ...Rectal Exam: Yes: WNL Renal/: Yes: WNL Edema: Yes Edema: LLE: 1+, RLE: 1+ Peripheral Pulses WNL: Yes Integumentary: Yes: WNL Wound/Incision: Yes: Clean/Dry Neurological: Yes: WNL ...Motor Strength: WNL Psychiatric: Yes: WNL Labs: CBC, BMP 11/06/19 05:30 11/06/19 05:30 Problem List - Problems (1) UTI (urinary tract infection) Code(s): N39.0 - URINARY TRACT INFECTION, SITE NOT SPECIFIED (2) Afib Code(s): I48.91 - UNSPECIFIED ATRIAL FIBRILLATION Qualifiers: Atrial fibrillation type: unspecified Qualified Code(s): I48.91 - Unspecified atrial fibrillation (3) Atrial fibrillation with RVR Code(s): I48.91 - UNSPECIFIED ATRIAL FIBRILLATION Assessment/Plan CARDIOLOGY WORKUP ON TELE/ICU MONITOR LABS TROPONINS MILDLY ELEVATED CARDIAC STRESS TEST CEFTRIAXONE IV FOR UTI CHECK CX PT EVAL
[2019-11-06] MEDS ORDERED: cefTRIAXone SODIUM 1 GM VIAL ONE (08:36)
[2019-11-06] MEDS ORDERED: DEXTROSE 5%-WATER - 50 ML IVPB ONE (08:36)
[2019-11-06] MEDS: CEFTRIAXONE 1 GM in DEXTROSE 5%-WATER - 50 ML IVPB SCH (09:15)
[2019-11-06] MEDS: AMIODARONE HCL 200 MG TABLET PO SCH (09:15)
[2019-11-06] MEDS: PANTOPRAZOLE 40 MG TABLET PO SCH (09:16)
--- NOTE | 2019-11-06 11:20 | EKG ---
Test Reason : Blood Pressure : / mmHG Vent. Rate : 064 BPM Atrial Rate : 064 BPM P-R Int : 168 ms QRS Dur : 088 ms QT Int : 326 ms P-R-T Axes : 058 005 066 degrees QTc Int : 336 ms NORMAL SINUS RHYTHM NONSPECIFIC ST AND T WAVE ABNORMALITY ABNORMAL ECG WHEN COMPARED WITH ECG OF 09-SEP-2019 12:17, SINUS RHYTHM HAS REPLACED ATRIAL FIBRILLATION VENT. RATE HAS DECREASED BY 50 BPM Confirmed by DAMON SO MD ([id number]) on 11/06/2019 11:20:06 AM Referred By: Confirmed By:DAMON SO MD
--- NOTE | 2019-11-06 11:57 | CON.ORTH ---
Consult Reason for Consultation:: Unsteady gait - Past Medical History Cardio/Vascular: Yes: AFIB, HTN, Hyperlipdemia Gastrointestinal: Yes: GERD ...: No - Past Surgical History Past Surgical History: Yes: Joint Replacement - Alcohol/Substance Use Hx Alcohol Use: No History of Substance Use: reports: None - Smoking History Smoking history: Former smoker Have you smoked in the past 12 months: No Aproximately how many cigarettes per day: 0 If you are a former smoker, when did you quit?: 01/23 - Social History Usual Living Arrangement: Alone ADL: Independent History of Recent Travel: No Home Medications - Allergies Allergies/Adverse Reactions: Allergies Allergy/AdvReac Type Severity Reaction Status Date / Time No Known Drug Allergies Allergy Verified 11/05/19 10:46 - Home Medications Home Medications: Ambulatory Orders Warfarin Na [Coumadin -] 5 mg PO DAILY@1800 04/30/19 Amiodarone HCl [Cordarone -] 200 mg PO DAILY tablet 05/04/19 traMADol HCL [Ultram -] 50 mg PO BID PRN 09/09/19 Pantoprazole Sodium [Protonix -] 40 mg PO DAILY #30 tablet.ec 09/12/19 Physical Exam for Ortho Vital Signs: Vital Signs Temperature 98.3 F 11/06/19 08:00 Pulse Rate 68 11/06/19 08:00 Respiratory Rate 22 H 11/06/19 08:00 Blood Pressure 142/69 11/06/19 08:00 O2 Sat by Pulse Oximetry (%) 99 11/06/19 09:00 Labs: CBC, BMP 11/06/19 05:30 11/06/19 05:30 INR, PTT INR 2.46 (0.83-1.09) H 11/06/19 05:30 - Lower Extremity Hip: Yes: Right, Other (well healed surgical incision, full rom, nvi) Other Findings/Remarks: LS spine- minimal ttp, good rom, neg SLR, nvi Assessment/Plan 89 year old female with a significant past medical history of Afib (on coumadin and amiodarone) who presents to the ED with SOB and generalized weakness . The patient states she felt weak, had palpitations and was experiencing SOB all day yesterday. The patient states she slept fine all night and when she woke up she was fine. After getting in the shower this morning she states she began experiencing palpitations again. The patient denies abdominal pain, chest pain, cough, N/V/D or fever/chills. The patient states currently in the ED she feels much better, however still feels generally weak. 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 compression fx. Denies any bowel/bladder dysfunction, numbness, or tingling. a/p - generalized weakness, s/p L1 compression fx and right THR PT eval wbat f/u as outpt d/w Dr. Bray
--- NOTE | 2019-11-06 12:38 | CON.CARD ---
Cardiology Consult (text) - Consultation Consultation Note: Chief Complaint: palps, weakness History of Present Illness: This is an 89 y/o female with a PMH of afib controlled with amiodarone and anticoagulated with coumadin presenting to the emergency department due to palpitations and weakness. Sxs started over the weekend, felt like her usual recurrent palpitation sxs. No cp sob dizzy loc pnd orthopnea le edema. - History Source History Provided By: Patient - Past Medical History Cardio/Vascular: Yes: AFIB, HTN, Hyperlipdemia Gastrointestinal: Yes: GERD Heme/Onc: No: Anemia, B12 Deficiency, Bleeding Disorder, Cancer, Current Chemotherapy, Current Radiation Therapy, Hemochromatosis, Hypercoaguable State, Myeloproliferative Synd, Sickle Cell Disease, Sickle Cell Trait, Thrombocytopenia, Other Infectious Disease: No: AIDS, C-Diff, Herpes Zoster, HIV, MRSA, STD's, Tuberculosis, VREF, Other Psych: No: Addictions, Anxiety, Bipolar, Depression, Panic, Psychosis, Schizophrenia, Other Musculoskeletal: No: Bursitis, Chronic low back pain, Hemiparesis, Hemiplegia, Osteoarthritis, Paraplegia, Other Rheumatology: No: Fibromyalgia, Gout, Lupus, Rheumatoid Arthritis, Sarcoidosis, Vasculitis, Other ENT: No: Allergic Rhinitis, Sinusitis, Other Endocrine: No: Supa's Disease, Eber's Disease, Diabetes Insipidus, Diabetes Mellitus, Hyperparathyroidism, Hyperthyroidism, Hypothyroidism, Osteopenia, SIADH, Other - Past Surgical History Past Surgical History: Yes: Joint Replacement - Alcohol/Substance Use Hx Alcohol Use: No History of Substance Use: reports: None - Smoking History Smoking history: Former smoker Have you smoked in the past 12 months: No Aproximately how many cigarettes per day: 10 If you are a former smoker, when did you quit?: 01/23 - Social History Usual Living Arrangement: Alone ADL: Independent History of Recent Travel: No Home Medications - Allergies Allergies/Adverse Reactions: Allergies Allergy/AdvReac Type Severity Reaction Status Date / Time No Known Drug Allergies Allergy Verified 11/05/19 10:46 Current Medications Generic Name Dose Route Start Last Admin Trade Name Freq PRN Reason Stop Dose Admin Acetaminophen 650 mg 11/05/19 16:05 Tylenol - PO Q6H PRN FEVER Amiodarone HCl 200 mg 11/06/19 10:00 11/06/19 09:15 Cordarone - PO 200 mg DAILY VANESA Administration Sodium Chloride 500 mls @ 75 mls/hr 11/05/19 13:45 11/05/19 15:03 Normal Saline - IV 75 mls/hr ASDIR VANESA Administration Ceftriaxone Sodium 1 gm/ 50 mls @ 100 mls/hr 11/05/19 16:15 11/06/19 09:15 Dextrose IVPB 100 mls/hr DAILY VANESA Administration Protocol Pantoprazole Sodium 40 mg 11/06/19 10:00 11/06/19 09:16 Protonix - PO 40 mg DAILY VANESA Administration Tramadol HCl 50 mg 11/05/19 16:05 Ultram - PO Q6H PRN PAIN LEVEL 7 - 10 Warfarin Sodium 5 mg 11/05/19 18:00 11/05/19 17:54 Coumadin - PO 5 mg DAILY@1800 VANESA Administration Ambulatory Orders Warfarin Na [Coumadin -] 5 mg PO DAILY@1800 04/30/19 Amiodarone HCl [Cordarone -] 200 mg PO DAILY tablet 05/04/19 traMADol HCL [Ultram -] 50 mg PO BID PRN 09/09/19 Pantoprazole Sodium [Protonix -] 40 mg PO DAILY #30 tablet.ec 09/12/19 Family Medical History Family History: Unremarkable (not pertinent to this presenation) Review of Systems Findings/Remarks: see HPI - Review of Systems Constitutional: reports: No Symptoms Eyes: reports: No Symptoms HENT: reports: No Symptoms Neck: reports: No Symptoms Cardiovascular: reports: Palpitations Respiratory: reports: SOB Gastrointestinal: denies: No Symptoms, Abdominal Pain, Bloating, Constipation, Diarrhea, Dysphagia, Indigestion, Melena, Nausea, Rectal Bleeding, Vomiting, Vomiting Blood, Other Genitourinary: denies: No Symptoms, Burning, Discharge, Dysuria, Flank Pain, Frequency, Hematuria, Incontinence, Lesions, Menses, Pain, Testicular Mass, Testicular Pain, Testicular Swelling, Urgency, Vaginal Bleeding, Other Breasts: denies: No Symptoms Reported, See HPI, Breast Implants, Discharge from Nipple, Lumps, Pain, Skin Changes, Other Musculoskeletal: denies: No Symptoms, Back Pain, Crepitus, Decreased ROM, Extremity Pain, Joint Pain, Joint Swelling, Muscle Pain, Muscle Cramps, Muscle Weakness, Other Integumentary: denies: No Symptoms, Blister, Bruising, Change in Color, Eczema, Erythema, Incision, Lesions, Lump, Pallor, Pruritis, Rash, Wound, Other Neurological: denies: No Symptoms, Change in LOC, Change in Speech, Confusion, Dizziness, Headache, Incoordination, Numbness, Parasthesia, Pre-Existing Deficit, Seizure, Syncope, Tremors, Unsteady Gait, Weakness, Other Endocrine: denies: No Symptoms, Excessive Sweating, Flushing, Increased Hunger, Increased Thirst, Intolerance to Cold, Intolerance to Heat, Unexplained Weight Gain, Unexplained Weight Loss, Other Hematology/Lymphatic: denies: No Symptoms, Easily Bruised, Excessive Bleeding, Swollen Glands, Other - Risk Factors Known Risk Factors: Yes: Age, Hypertension, Smoking Vital Signs: Vital Signs Period Temp Pulse Resp BP Sys/Lucero Pulse Ox Last 24 Hr 98.2 F-98.3 F 60-70 15-22 127-158/60-99 97-100 nad no jvd rrr s1s2 no mrg cta bl nl eff aao3 no le e/c/c abd nt nd pos bs no jaundice diaphoreis pos dp pt no carotid bruits Laboratory Last Values WBC 6.4 K/mm3 (4.0-10.0) 11/06/19 05:30 RBC 4.61 M/mm3 (3.60-5.2) 11/06/19 05:30 Hgb 13.9 GM/dL (10.7-15.3) 11/06/19 05:30 Hct 41.1 % (32.4-45.2) 11/06/19 05:30 MCV 89.3 fl (80-96) 11/06/19 05:30 MCH 30.1 pg (25.7-33.7) 11/06/19 05:30 MCHC 33.7 g/dl (32.0-36.0) 11/06/19 05:30 RDW 15.3 % (11.6-15.6) 11/06/19 05:30 Plt Count 214 K/MM3 (134-434) 11/06/19 05:30 MPV 9.5 fl (7.5-11.1) 11/06/19 05:30 Absolute Neuts (auto) 3.7 K/mm3 (1.5-8.0) 11/05/19 12:25 Neutrophils % 59.9 % (42.8-82.8) 11/05/19 12:25 Lymphocytes % 29.6 % (8-40) D 11/05/19 12:25 Monocytes % 9.1 % (3.8-10.2) 11/05/19 12:25 Eosinophils % 0.5 % (0-4.5) 11/05/19 12:25 Basophils % 0.9 % (0-2.0) 11/05/19 12:25 Nucleated RBC % 0 % (0-0) 11/05/19 12:25 PT with INR 29.30 SEC (9.7-13.0) H 11/06/19 05:30 INR 2.46 (0.83-1.09) H 11/06/19 05:30 Sodium 142 mmol/L (136-145) 11/06/19 05:30 Potassium 4.1 mmol/L (3.5-5.1) 11/06/19 05:30 Chloride 113 mmol/L (98-107) H 11/06/19 05:30 Carbon Dioxide 22 mmol/L (21-32) 11/06/19 05:30 Anion Gap 7 MMOL/L (8-16) L 11/06/19 05:30 BUN 16.5 mg/dL (7-18) 11/06/19 05:30 Creatinine 1.0 mg/dL (0.55-1.3) 11/06/19 05:30 Est GFR (CKD-EPI)AfAm 58.25 11/06/19 05:30 Est GFR (CKD-EPI)NonAf 50.26 11/06/19 05:30 Random Glucose 70 mg/dL (74-106) L 11/06/19 05:30 Calcium 9.1 mg/dL (8.5-10.1) 11/06/19 05:30 Magnesium 2.1 mg/dL (1.8-2.4) 11/05/19 12:25 Total Bilirubin 1.9 mg/dL (0.2-1) H 11/06/19 05:30 AST 26 U/L (15-37) 11/06/19 05:30 ALT 17 U/L (13-61) 11/06/19 05:30 Alkaline Phosphatase 77 U/L (45-117) 11/06/19 05:30 Troponin I 0.10 ng/ml (0.00-0.05) H 11/05/19 19:15 B-Natriuretic Peptide 3736.0 pg/ml (5-450) H 11/05/19 12:25 Total Protein 7.1 g/dl (6.4-8.2) 11/06/19 05:30 Albumin 3.7 g/dl (3.4-5.0) 11/06/19 05:30 TSH 1.62 uIU/ml (0.358-3.74) 11/05/19 12:25 Free T4 1.48 ng/dl (0.76-1.46) H 11/05/19 12:25 Urine Color Yellow 11/05/19 14:42 Urine Appearance Clear 11/05/19 14:42 Urine pH 5.5 (5.0-8.0) 11/05/19 14:42 Ur Specific [place] 1.017 (1.010-1.035) 11/05/19 14:42 Urine Protein Trace (NEGATIVE) 11/05/19 14:42 Urine Glucose (UA) Negative (NEGATIVE) 11/05/19 14:42 Urine Ketones Negative (NEGATIVE) 11/05/19 14:42 Urine Blood Negative (NEGATIVE) 11/05/19 14:42 Urine Nitrite Negative (NEGATIVE) 11/05/19 14:42 Urine Bilirubin Negative (NEGATIVE) 11/05/19 14:42 Urine Urobilinogen 0.2 mg/dL (0.2-1.0) 11/05/19 14:42 Ur Leukocyte Esterase 2+ (NEGATIVE) H 11/05/19 14:42 Urine WBC (Auto) 137 /uL (0-25.8) 11/05/19 14:42 Urine RBC (Auto) 22 /uL (0-23.9) 11/05/19 14:42 Urine Casts (Auto) 7 /uL (0-3.1) 11/05/19 14:42 U Pathogenic Cast Auto Non seen /lpf (NEGATIVE) 11/05/19 14:42 U Epithel Cells (Auto) 16 /uL (0-25.1) 11/05/19 14:42 Urine Bacteria (Auto) 228 /uL (0-1359) 11/05/19 14:42 COVID-19 (RADHA) Not detected (Not Detected) 11/05/19 13:29 Echo: Report Reviewed (12/2018: EF 65%, Moderate MR, RVSP 46) Stress Echo: Other (Lexiscan MPI 09/2018: no ischemia, EF 65%) tele:sr cxr: clear Imaging - Results Chest X-ray: Image Reviewed (no clear infiltrate, no effusion) Assessment/Plan This is an 89 y/o female with a PMH of afib controlled with amiodarone and anticoagulated with coumadin presenting to the emergency department due to pal pitations and weakness. palps, pAF: -pt has hx of afib s/p ablation. post ablation she has had episodes of afib and also has had recurrent palps that have been evaluated extensively including with 30 day event monitor that showed pt is having palps with sinus rhythm, not afib. Pt has prn xanax at home, rec'd that she try next time she has extended palps as it may be more anxiety related as there has been no evidence that her afib has been causing her sxs. -cont amio, cont ac Equivocal TnI: -borderline level, flat trend, similar to prior baseline values, not c/w acs cardiac sullivan stable
[2019-11-06] MEDS: WARFARIN NA 5 MG TABLET PO SCH (17:50)
[2019-11-07 07:03] LABS: INR 2.4 (0.83-1.09); PROTHROMBIN TIME (PATIENT) 28.6 SEC (9.7-13.0)
--- NOTE | 2019-11-07 07:18 | PN ---
Progress Note, Physician - Current Medication List Current Medications: Active Medications Acetaminophen (Tylenol -) 650 mg PO Q6H PRN PRN Reason: FEVER Amiodarone HCl (Cordarone -) 200 mg PO DAILY [facility] Last Admin: 11/06/19 09:15 Dose: 200 mg Documented by: Sodium Chloride (Normal Saline -) 500 mls @ 75 mls/hr IV ASDIR [facility] Last Admin: 11/05/19 15:03 Dose: 75 mls/hr Documented by: Ceftriaxone Sodium 1 gm/ (Dextrose) 50 mls @ 100 mls/hr IVPB DAILY [facility]; Protocol Last Admin: 11/06/19 09:15 Dose: 100 mls/hr Documented by: Pantoprazole Sodium (Protonix -) 40 mg PO DAILY [facility] Last Admin: 11/06/19 09:16 Dose: 40 mg Documented by: Tramadol HCl (Ultram -) 50 mg PO Q6H PRN PRN Reason: PAIN LEVEL 7 - 10 Warfarin Sodium (Coumadin -) 5 mg PO DAILY@1800 [facility] Last Admin: 11/06/19 17:50 Dose: 5 mg Documented by: - Objective Vital Signs: Vital Signs Temperature 98.5 F 11/07/19 02:00 Pulse Rate 76 11/07/19 02:00 Respiratory Rate 20 11/07/19 02:00 Blood Pressure 148/68 11/07/19 02:00 O2 Sat by Pulse Oximetry (%) 95 11/07/19 02:00 Labs: CBC, BMP 11/06/19 05:30 INR, PTT INR 2.40 (0.83-1.09) H 11/07/19 06:00 Problem List - Problems (1) UTI (urinary tract infection) Code(s): N39.0 - URINARY TRACT INFECTION, SITE NOT SPECIFIED (2) Afib Code(s): I48.91 - UNSPECIFIED ATRIAL FIBRILLATION Qualifiers: Atrial fibrillation type: unspecified Qualified Code(s): I48.91 - Unspecified atrial fibrillation (3) Atrial fibrillation with RVR Code(s): I48.91 - UNSPECIFIED ATRIAL FIBRILLATION
[2019-11-07 07:23] LABS: ALBUMIN 3.4 g/dl (3.4-5.0); BILIRUBIN,TOTAL 1.9 mg/dL (0.2-1); BLOOD UREA NITROGEN 12.9 mg/dL (7-18); CALCIUM 8.7 mg/dL (8.5-10.1); CREATININE 0.9 mg/dL (0.55-1.3); POTASSIUM 3.9 mmol/L (3.5-5.1); TOT PROT 6.7 g/dl (6.4-8.2)
--- NOTE | 2019-11-07 07:28 | DS ---
Physical Examination Vital Signs: Vital Signs Temperature 98.5 F 11/07/19 02:00 Pulse Rate 76 11/07/19 02:00 Respiratory Rate 20 11/07/19 02:00 Blood Pressure 148/68 11/07/19 02:00 O2 Sat by Pulse Oximetry (%) 95 11/07/19 02:00 Constitutional: Yes: No Distress Cardiovascular: Yes: Regular Rate and Rhythm Respiratory: Yes: Regular Gastrointestinal: Yes: WNL Renal/: Yes: WNL Musculoskeletal: Yes: Back Pain, Muscle Weakness Edema: No Labs: CBC, BMP 11/06/19 05:30 11/07/19 06:00 Discharge Summary Problems reviewed: Yes Reason For Visit: ATRIAL FIBRILLATION/ELEVATED TROPONIN LEVEL/ Current Active Problems Afib (Acute) Elevated troponin (Acute) UTI (urinary tract infection) (Acute) Procedures: Principal: ZANDER LAKHANI Hospital Course: IV ABX, CARDIAC WORKUP Plan of Treatment: TREATMENT FOR UTI, LIPID MEDS CRESTOR 5MG Condition: Stable - Instructions Diet, Activity, Other Instructions: SEE DR URBAN 2 WEEKS Referrals: Tisha Urban MD [Primary Care Provider] - Disposition: HOME - Home Medications Comprehensive Discharge Medication List: Ambulatory Orders Warfarin Na [Coumadin -] 5 mg PO DAILY@1800 04/30/19 Amiodarone HCl [Cordarone -] 200 mg PO DAILY tablet 05/04/19 traMADol HCL [Ultram -] 50 mg PO BID PRN 09/09/19 Pantoprazole Sodium [Protonix -] 40 mg PO DAILY #30 tablet.ec 09/12/19
[2019-11-07] MEDS ORDERED: DEXTROSE 5%-WATER - 50 ML IVPB ONE (10:54)
[2019-11-07] MEDS ORDERED: cefTRIAXone SODIUM 1 GM VIAL ONE (10:54)
[2019-11-07] MEDS: AMIODARONE HCL 200 MG TABLET PO SCH (10:57)
[2019-11-07] MEDS: PANTOPRAZOLE 40 MG TABLET PO SCH (10:57)
[2019-11-07] MEDS: CEFTRIAXONE 1 GM in DEXTROSE 5%-WATER - 50 ML IVPB SCH (11:00)
--- NOTE | 2019-11-07 13:08 | PN ---
Progress Note (short form) - Note Progress Note: cc: palps, weakness s: no chest pain, palps, dizziness, dyspnea. wants to go home Current Medications Generic Name Dose Route Start Last Admin Trade Name Fina PRN Reason Stop Dose Admin Acetaminophen 650 mg 11/05/19 16:05 Tylenol - PO Q6H PRN FEVER Amiodarone HCl 200 mg 11/06/19 10:00 11/07/19 10:57 Cordarone - PO 200 mg DAILY VANESA Administration Sodium Chloride 500 mls @ 75 mls/hr 11/05/19 13:45 11/05/19 15:03 Normal Saline - IV 75 mls/hr ASDIR VANESA Administration Ceftriaxone Sodium 1 gm/ 50 mls @ 100 mls/hr 11/05/19 16:15 11/07/19 11:00 Dextrose IVPB 100 mls/hr DAILY VANESA Administration Protocol Pantoprazole Sodium 40 mg 11/06/19 10:00 11/07/19 10:57 Protonix - PO 40 mg DAILY VANESA Administration Tramadol HCl 50 mg 11/05/19 16:05 Ultram - PO Q6H PRN PAIN LEVEL 7 - 10 Warfarin Sodium 5 mg 11/05/19 18:00 11/06/19 17:50 Coumadin - PO 5 mg DAILY@1800 VANESA Administration Vital Signs Period Temp Pulse Resp BP Sys/Lucero Pulse Ox Last 24 Hr 98.0 F-98.5 F 63-76 20-22 106-148/59-83 93-97 nad no jvd rrr s1s2 no mrg cta bl nl eff aao3 no le e/c/c abd nt nd pos bs no jaundice diaphoreis pos dp pt no carotid bruits Echo: Report Reviewed (12/2018: EF 65%, Moderate MR, RVSP 46) Stress Echo: Other (Lexiscan MPI 09/2018: no ischemia, EF 65%) tele:sr cxr: clear Imaging - Results Chest X-ray: Image Reviewed (no clear infiltrate, no effusion) Assessment/Plan This is an 89 y/o female with a PMH of afib controlled with amiodarone and anticoagulated with coumadin presenting to the emergency department due to palpitations and weakness. palps, pAF: -pt has hx of afib s/p ablation. post ablation she has had episodes of afib and also has had recurrent palps that have been evaluated extensively including with 30 day event monitor that showed pt is having palps with sinus rhythm, not afib. Pt has prn xanax at home, rec'd that she try next time she has extended palps as it may be more anxiety related as there has been no evidence that her afib has been causing her sxs. -cont amio, cont ac Equivocal TnI: -borderline level, flat trend, similar to prior baseline values, not c/w acs cardiac sullivan stable for dc
[2019-11-07 13:56] VITALS: BP 113/53; PULSE 58; TEMP 98.3
== END 2019-11-07 15:48 | disposition home or self-care (01) | DRG 690 ==
LOC: JER 10:42 → JERBED 13:44 → OBSVTOIN 16:00 → JICU 22:59 → J4W 11-06 18:35
PROVIDERS: ADMIT Family Medicine; ATTEND Family Medicine
DX: N39.0 Urinary tract infection, site not specified (principal); I48.0 Paroxysmal atrial fibrillation; I10 Essential (primary) hypertension; E78.5 Hyperlipidemia, unspecified; K21.9 Gastro-esophageal reflux disease without esophagitis
CPT/HCPCS: 36415; 71045-TC-FY; 76700-TC; 80053; 80061; 80074; 81003; 83721; 83735; 83880; 84439; 84443; 84484; 85025; 85027; 85610; 87086; 93005; 93010; 97116-GP; 97162-GP; 99285-25; G0378; U0003

== ENCOUNTER 2019-11-27 05:55 | Inpatient (IN) | payer OTHER, MEDICARE ==
--- OUTSIDE RECORDS SUMMARY | 2019-11-27 06:44 | XMS ---
:1930 [address] [place] [address] HOME Email Address DECLINED Preferred Language Argentine Marital Status Not or Mu-Ism Affiliation [place] Race [employer]nic [employer] Not or Author Organization [facility] Care Team Providers Name Role Phone Wilmar Unavailable [phone] Wilmar Unavailable [phone] Wilmar Unavailable [phone] Wilmar Unavailable [phone] Wilmar Unavailable [phone] Wilmar Unavailable [phone] Wilmar Unavailable [phone] Wilmar Unavailable [phone] Wilmar Unavailable [phone] Wilmar Unavailable [phone] Wilmar Unavailable [phone] Wilmar Unavailable [phone] Wilmar Unavailable [phone] Wilmar Unavailable [phone] Wilmar Unavailable [phone] Wilmar Unavailable [phone] Re-disclosure Warning The records that you are about to access may contain information from federally- assisted alcohol or drug abuse programs. If such information is present, then the following federally mandated warning applies: This information has been disclosed to you from records protected by federal confidentiality rules (42 CFR part 2). The federal rules prohibit you from making any further disclosure of this information unless further disclosure is expressly permitted by the written consent of the person to whom it pertains or as otherwise permitted by 42 CFR part 2. A general authorization for the release of medical or other information is NOT sufficient for this purpose. The Federal rules restrict any use of the information to criminally investigate or prosecute any alcohol or drug abuse patient.The records that you are about to access may contain highly sensitive health information, the redisclosure of which is protected by Article 27-F of the [facility] Public Health law. If you continue you may haveaccess to information: Regarding HIV / AIDS; Provided by facilities licensed or operated by the [facility] Office of Mental Health; or Provided by the [facility] Office for People With Developmental Disabilities. If such information is present, then the following [facility] mandated warning applies: This information has been disclosed to you from confidential records which are protected by state law. State law prohibits you from making any further disclosure of this information without the specific written consent of the person to whom it pertains, or as otherwise permitted by law. Any unauthorized further disclosure in violation of state law may result in a fine or nursing home sentence or both. A general authorization for the release of medical or other information is NOT sufficient authorization for further disclosure. Encounters Encounter Providers Location Date Indications Data Source(s ) Attender: [facility] 11/22/2019 [facility] (A mmir [place] 12:00:00 AM EDT [place] Ph ysician) [facility] Attender: [facility] [place] 11/02/2019 12:00:00 AM E DT [facility] 12:00:00 AM E DT [facility]2019 12:00:00 AM E DT [facility] Immunizations Vaccine Date Status Description Data Source(s) Influenza, high dose 11/30/2016 completed [facility] (Ammir [place] seasonal 12:00:00 AM EDT Physician) Influenza, high dose 11/30/2016 completed [facility] (Ammir [place] seasonal 12:00:00 AM EDT Physician) Influenza, high dose 11/30/2016 completed [facility] (Ammir [place] seasonal 12:00:00 AM EDT Physician) Influenza, high dose 11/30/2016 completed [facility] (Ammir [place] seasonal 12:00:00 AM EDT Physician) New in 2011. IIV4 12/24/2015 completed [facility] (A mmir [place] 12:00:00 AM EDT Physician) New in 2011. IIV4 12/24/2015 completed [facility] (A mmir [place] 12:00:00 AM EDT Physician) New in 2011. IIV4 12/24/2015 completed [facility] (A mmir [place] 12:00:00 AM EDT Physician) New in 2011. IIV4 12/24/2015 completed [facility] (A mmir [place] 12:00:00 AM EDT Physician) Pneumococcal conjugate 03/15/2015 completed MEDGE N (Ammir [place] PCV 13 12:00:00 AM EST Physician) Pneumococcal conjugate 03/15/2015 completed MEDGE N (Ammir [place] PCV 13 12:00:00 AM EST Physician) Pneumococcal conjugate 03/15/2015 completed MEDGE N (Ammir [place] PCV 13 12:00:00 AM EST Physician) Pneumococcal conjugate 03/15/2015 completed MEDGE N (Ammir [place] PCV 13 12:00:00 AM EST Physician) Medications Medication Brand Start Product Dose Route Administrative Pharmacy [facility] Indications Reaction Description Data Name Date Form Instructions Instructions Source(s) tramadol TRAMAD 11/01/ TABLET 60 complet TRAMADO L MEDGEN hydrochlori OL:835 2020 ed (Ammir de 50 MG 603 12:00: [place] Oral Tablet 00 AM Physici an) TRAMADOL:83 EDT 5603 tramadol TRAMAD 11/01/ TABLET 60 complet TRAMADO L MEDGEN hydrochlori OL:835 2020 ed (Ammir de 50 MG 603 12:00: [place] Oral Tablet 00 AM Physici an) TRAMADOL:83 EDT 5603 Megestrol MEGACE complet KAUSHALCE M EDGEN Acetate 40 :54703 2020 ed (Ammir MG/ML Oral 5 12:00: [place] Suspension 00 AM Physicia n) MEGACE:8602 EDT 25 Megestrol MEGACE complet MEGACE M EDGEN Acetate 40 :13812 2020 ed (Ammir MG/ML Oral 5 12:00: [place] Suspension 00 AM Physicia n) MEGACE:8602 EDT 25 Megestrol MEGACE complet KAUSHALCE M EDGEN Acetate 40 :82925 2020 ed (Ammir MG/ML Oral 5 12:00: [place] Suspension 00 AM Physicia n) MEGACE:8602 EDT 25 Megestrol MEGACE complet MEGACE M EDGEN Acetate 40 :44560 2020 ed (Ammir MG/ML Oral 5 12:00: [place] Suspension 00 AM Physicia n) MEGACE:8602 EDT 25 Amoxicillin AUGMEN 09/18/ TABLET 10 complet AUGM ENTIN MEDGEN 500 MG / TIN:61 2019 ed (Ammir Clavulanate 7296 12:00: [place] 125 MG Oral 00 AM Physici an) Tablet EDT AUGMENTIN:6 68831 Amoxicillin AUGMEN 09/18/ TABLET 10 complet AUGM ENTIN MEDGEN 500 MG / TIN:61 2019 ed (Ammir Clavulanate 7296 12:00: [place] 125 MG Oral 00 AM Physici an) Tablet EDT AUGMENTIN:6 47409 Amoxicillin AUGMEN 09/18/ TABLET 10 complet AUGM ENTIN MEDGEN 500 MG / TIN:61 2019 ed (Ammir Clavulanate 7296 12:00: [place] 125 MG Oral 00 AM Physici an) Tablet EDT AUGMENTIN:6 20437 Amoxicillin AUGMEN 09/18/ TABLET 10 complet AUGM ENTIN MEDGEN 500 MG / TIN:61 2019 ed (Ammir Clavulanate 7296 12:00: [place] 125 MG Oral 00 AM Physici an) Tablet EDT AUGMENTIN:6 71491 Warfarin COUMAD 09/17/ TABLET 720 complet COUMADI N MEDGEN Sodium 1 MG IN:2019 ed (Ammir Oral Tablet 288 12:00: [place] COUMADIN:85 00 AM Physici an) 5288 EDT Warfarin COUMAD 09/17/ TABLET 720 complet COUMADI N MEDGEN Sodium 1 MG IN:2019 ed (Ammir Oral Tablet 288 12:00: [place] COUMADIN:85 00 AM Physici an) 5288 EDT Warfarin COUMAD 09/17/ TABLET 720 complet COUMADI N MEDGEN Sodium 1 MG IN:2019 ed (Ammir Oral Tablet 288 12:00: [place] COUMADIN:85 00 AM Physici an) 5288 EDT Warfarin COUMAD 09/17/ TABLET 720 complet COUMADI N MEDGEN Sodium 1 MG IN:2019 ed (Ammir Oral Tablet 288 12:00: [place] COUMADIN:85 00 AM Physici an) 5288 EDT tramadol TRAMAD 09/12/ TABLET 60 complet TRAMADO L MEDGEN hydrochlori OL:835 2019 ed (Ammir de 50 MG 603 12:00: [place] Oral Tablet 00 AM Physici an) TRAMADOL:83 EDT 5603 tramadol TRAMAD 09/12/ TABLET 60 complet TRAMADO L MEDGEN hydrochlori OL:835 2019 ed (Ammir de 50 MG 603 12:00: [place] Oral Tablet 00 AM Physici an) TRAMADOL:83 EDT 5603 LIDOCAINE complet LIDOCAINE MEDGEN EXTERNAL 2020 ed EXTERNAL (Ammir PATCH: 12:00: PATCH [place]mar 00 AM Physician) EST LIDOCAINE complet LIDOCAINE MEDGEN EXTERNAL 2020 ed EXTERNAL (Ammir PATCH: 12:00: PATCH Wlimar 00 AM Physician) EST LIDOCAINE complet LIDOCAINE MEDGEN EXTERNAL 2020 ed EXTERNAL (Ammir PATCH: 12:00: PATCH [place] 00 AM Physician) EST LIDOCAINE complet LIDOCAINE MEDGEN EXTERNAL 2020 ed EXTERNAL (Ammir PATCH: 12:00: PATCH [place] 00 AM Physician) EST cetirizine ZYRTEC 04/26/ TABLET 30 complet ZYRTE C MEDGEN hydrochlori :94073 2019 ed (Ammir de 10 MG 26 12:00: [place] Oral Tablet 00 AM Physici an) [Zyrtec] EST ZYRTEC:1020 026 cetirizine ZYRTEC 04/26/ TABLET 30 complet ZYRTE C MEDGEN hydrochlori :23325 2019 ed (Ammir de 10 MG 26 12:00: [place] Oral Tablet 00 AM Physici an) [Zyrtec] EST ZYRTEC:1020 026 cetirizine ZYRTEC 04/26/ TABLET 30 complet ZYRTE C MEDGEN hydrochlori :76517 2019 ed (Ammir de 10 MG 26 12:00: [place] Oral Tablet 00 AM Physici an) [Zyrtec] EST ZYRTEC:1020 026 cetirizine ZYRTEC 04/26/ TABLET 30 complet ZYRTE C MEDGEN hydrochlori :33033 2020 ed (Ammir de 10 MG 26 12:00: [place] Oral Tablet 00 AM Physici an) [Zyrtec] EST ZYRTEC:1020 026 Alprazolam XANAX: 03/30/ TABLET 30 complet XANAX MEDGEN 0.5 MG Oral [id number] ed (Ammir Tablet 12:00: [place] XANAX:07726 00 AM Physici an) 8 EST Alprazolam XANAX: 03/30/ TABLET 30 complet XANAX MEDGEN 0.5 MG Oral [id number] 5950 ed (Ammir Tablet 12:00: [place] XANAX:51056 00 AM Physici an) 8 EST Alprazolam XANAX: 03/30/ TABLET 30 complet XANAX MEDGEN 0.5 MG Oral [id number] 0767 ed (Ammir Tablet 12:00: [place] XANAX:54124 00 AM Physici an) 8 EST Alprazolam XANAX: 03/30/ TABLET 30 complet XANAX MEDGEN 0.5 MG Oral [id number] 5619 ed (Ammir Tablet 12:00: [place] XANAX:48937 00 AM Physici an) 8 EST Amiodarone AMIODA 01/17/ TABLET 90 complet AMIOD ARONE MEDGEN hydrochlori FLORENCIA:8 2018 ed (Ammir de 200 MG 63916 12:00: [place] Oral Tablet 00 AM Physici an) AMIODARONE: EST [id number] Amiodarone AMIODA 01/17/ TABLET 90 complet AMIOD ARONE MEDGEN hydrochlori FLORENCIA:8 2018 ed (Ammir de 200 MG 56326 12:00: [place] Oral Tablet 00 AM Physici an) AMIODARONE: EST [id number] Amiodarone AMIODA 01/17/ TABLET 90 complet AMIOD ARONE MEDGEN hydrochlori FLORENCIA:8 2018 ed (Ammir de 200 MG 70416 12:00: [place] Oral Tablet 00 AM Physici an) AMIODARONE: EST [id number] Amiodarone AMIODA 01/17/ TABLET 90 complet AMIOD ARONE MEDGEN hydrochlori FLORENCIA:8 2018 ed (Ammir de 200 MG [address]341 12:00: [place] Oral Tablet 00 AM Physici an) AMIODARONE: EST [id number] Ergocalcife VITAMI 11/04/ CAPSULE 12 complet VIT MAYS D2 MEDGEN rol 16014 N 2019 ed (Ammir UNT Oral D2:136 12:00: [place] Capsule 7410 00 AM Physician) VITAMIN EDT D2:5995201 Ergocalcife VITAMI 30/ CAPSULE 12 complet VIT MAYS D2 MEDGEN rol 13547 N 2019 ed (Ammir UNT Oral D2:136 12:00: [place] Capsule 7410 00 AM Physician) VITAMIN EDT D2:7820656 Ergocalcife VITAMI 30/ CAPSULE 12 complet VIT MAYS D2 MEDGEN rol 02691 N 2019 ed (Ammir UNT Oral D2:136 12:00: [place] Capsule 7410 00 AM Physician) VITAMIN EDT D2:1922690 Ergocalcife VITAMI 30/ CAPSULE 12 complet VIT MAYS D2 MEDGEN rol 92233 N 2019 ed (Ammir UNT Oral D2:136 12:00: [place] Capsule 7410 00 AM Physician) VITAMIN EDT D2:8935428 Warfarin COUMAD /17/ TABLET 30 complet COUMADI N MEDGEN Sodium 6 MG IN:852016 ed (Ammir Oral Tablet 338 12:00: [place] COUMADIN:85 00 AM Physici an) 5338 EST Warfarin WARFAR /17/ TABLET 30 complet WARFARI N MEDGEN Sodium 5 MG IN:852016 ed (Ammir Oral Tablet 332 12:00: [place] WARFARIN:85 00 AM Physici an) 5332 EST Warfarin WARFAR /17/ TABLET 30 complet WARFARI N MEDGEN Sodium 5 MG IN:852016 ed (Ammir Oral Tablet 332 12:00: [place] WARFARIN:85 00 AM Physici an) 5332 EST Warfarin COUMAD /17/ TABLET 30 complet COUMADI N MEDGEN Sodium 6 MG IN:852016 ed (Ammir Oral Tablet 338 12:00: [place] COUMADIN:85 00 AM Physici an) 5338 EST Warfarin COUMAD /17/ TABLET 30 complet COUMADI N MEDGEN Sodium 6 MG IN:852016 ed (Ammir Oral Tablet 338 12:00: [place] COUMADIN:85 00 AM Physici an) 5338 EST Warfarin COUMAD /17/ TABLET 30 complet COUMADI N MEDGEN Sodium 6 MG IN:852016 ed (Ammir Oral Tablet 338 12:00: [place] COUMADIN:85 00 AM Physici an) 5338 EST Warfarin WARFAR /17/ TABLET 30 complet WARFARI N MEDGEN Sodium 5 MG IN:852016 ed (Ammir Oral Tablet 332 12:00: [place] WARFARIN:85 00 AM Physici an) 5332 EST Warfarin WARFAR 03/24/ TABLET 30 complet WARFARI N MEDGEN Sodium 5 MG IN:852016 ed (Ammir Oral Tablet 332 12:00: [place] WARFARIN:85 00 AM Physici an) 5332 EST Insurance Providers Payer name Policy type Policy ID Covered Covered republican's Policy P margot / Coverage republican ID relationship to [place] Inf ormation type valencia MEDICARE [id number] SP [id number] [employer] [id number] SP [id number] CARE [place] [id number] 1 [id number] PART B DOWN[place] MEDICARE [id number] SP [id number] MEDICARE [id number] SP [id number] MEDICARE [id number] SP [id number] A Problems, Conditions, and Diagnoses Code Display Name Description Problem Type Effective Data Dates Source(s) I50.9 Heart failure, HEART FAILURE, Problem 10/04/2019 MEDGEN (Ammir unspecified UNSPECIFIED 12:00:00 AM [place] EDT Physician) I50.9 Heart failure, HEART FAILURE, Problem 10/04/2019 MEDGEN (Ammir unspecified UNSPECIFIED 12:00:00 AM [place] EDT Physician) I50.9 Heart failure, HEART FAILURE, Problem 10/04/2019 MEDGEN (Ammir unspecified UNSPECIFIED 12:00:00 AM [place] EDT Physician) I50.9 Heart failure, HEART FAILURE, Problem 10/04/2019 MEDGEN (Ammir unspecified UNSPECIFIED 12:00:00 AM [place] EDT Physician) Z71.89 Other specified OTHER SPECIFIED Problem 06/08/2019 MEDG EN (Ammir counseling COUNSELING 12:00:00 AM [place] EDT Physician) Z71.89 Other specified OTHER SPECIFIED Problem 06/08/2019 MEDG EN (Ammir counseling COUNSELING 12:00:00 AM [place] EDT Physician) Z71.89 Other specified OTHER SPECIFIED Problem 06/08/2019 MEDG EN (Ammir counseling COUNSELING 12:00:00 AM [place] EDT Physician) Z71.89 Other specified OTHER SPECIFIED Problem 06/08/2019 MEDG EN (Ammir counseling COUNSELING 12:00:00 AM [place] EDT Physician) S22.000A Wedge compression WEDGE COMPRESSION Problem 05/11/2019 MEDGEN (Ammir fracture of FRACTURE OF 12:00:00 AM [place] unspecified UNSPECIFIED EST Physician) thoracic vertebra, THORACIC VERTEBRA, initial encounter INITIAL ENCOUNTER for closed fracture FOR CLOSED FRACTURE S22.000A Wedge compression WEDGE COMPRESSION Problem 05/11/2019 MEDGEN (Ammir fracture of FRACTURE OF 12:00:00 AM [place] unspecified UNSPECIFIED EST Physician) thoracic vertebra, THORACIC VERTEBRA, initial encounter INITIAL ENCOUNTER for closed fracture FOR CLOSED FRACTURE S22.000A Wedge compression WEDGE COMPRESSION Problem 05/11/2019 MEDGEN (Ammir fracture of FRACTURE OF 12:00:00 AM [place] unspecified UNSPECIFIED EST Physician) thoracic vertebra, THORACIC VERTEBRA, initial encounter INITIAL ENCOUNTER for closed fracture FOR CLOSED FRACTURE S22.000A Wedge compression WEDGE COMPRESSION Problem 05/11/2019 MEDGEN (Ammir fracture of FRACTURE OF 12:00:00 AM [place] unspecified UNSPECIFIED EST Physician) thoracic vertebra, THORACIC VERTEBRA, initial encounter INITIAL ENCOUNTER for closed fracture FOR CLOSED FRACTURE W19.XXXA Unspecified fall, UNSPECIFIED FALL, Problem 04/27/2019 MEDGEN (Ammir initial encounter INITIAL ENCOUNTER 12:00:00 AM [place] EST Physician) W19.XXXA Unspecified fall, UNSPECIFIED FALL, Problem 04/27/2019 MEDGEN (Ammir initial encounter INITIAL ENCOUNTER 12:00:00 AM [place] EST Physician) W19.XXXA Unspecified fall, UNSPECIFIED FALL, Problem 04/27/2019 MEDGEN (Ammir initial encounter INITIAL ENCOUNTER 12:00:00 AM [place] EST Physician) W19.XXXA Unspecified fall, UNSPECIFIED FALL, Problem 04/27/2019 MEDGEN (Ammir initial encounter INITIAL ENCOUNTER 12:00:00 AM [place] EST Physician) M10.9 Gout, unspecified GOUT, UNSPECIFIED Problem 03/07/2019 MEDGEN (Ammir 12:00:00 AM [place] EST Physician) M10.9 Gout, unspecified GOUT, UNSPECIFIED Problem 03/07/2019 MEDGEN (Ammir 12:00:00 AM [place] EST Physician) M10.9 Gout, unspecified GOUT, UNSPECIFIED Problem 03/07/2019 MEDGEN (Ammir 12:00:00 AM [place] EST Physician) M10.9 Gout, unspecified GOUT, UNSPECIFIED Problem 03/07/2019 MEDGEN (Ammir 12:00:00 AM [place] EST Physician) M54.6 Pain in thoracic PAIN IN THORACIC Problem 08/08/2018 ME DGEN (Ammir spine SPINE 12:00:00 AM [place] EDT Physician) M54.6 Pain in thoracic PAIN IN THORACIC Problem 08/08/2018 ME DGEN (Ammir spine SPINE 12:00:00 AM [place] EDT Physician) M54.6 Pain in thoracic PAIN IN THORACIC Problem 08/08/2018 ME DGEN (Ammir spine SPINE 12:00:00 AM [place] EDT Physician) M54.6 Pain in thoracic PAIN IN THORACIC Problem 08/08/2018 ME DGEN (Ammir spine SPINE 12:00:00 AM [place] EDT Physician) D64.9 Anemia, unspecified ANEMIA, UNSPECIFIED Problem 019 MEDGEN (Ammir 12:00:00 AM [place] EDT Physician) E55.9 Vitamin D VITAMIN D Problem 07/27/2018 MEDGEN (Ammir deficiency, DEFICIENCY, 12:00:00 AM [place] unspecified UNSPECIFIED EDT Physician) D64.9 Anemia, unspecified ANEMIA, UNSPECIFIED Problem 019 MEDGEN (Ammir 12:00:00 AM [place] EDT Physician) E55.9 Vitamin D VITAMIN D Problem 07/27/2018 MED[facility] (Ammir deficiency, DEFICIENCY, 12:00:00 AM [place] unspecified UNSPECIFIED EDT Physician) D64.9 Anemia, unspecified ANEMIA, UNSPECIFIED Problem 019 MEDGEN (Ammir 12:00:00 AM [place] EDT Physician) E55.9 Vitamin D VITAMIN D Problem 07/27/2018 MEDGEN (Ammir deficiency, DEFICIENCY, 12:00:00 AM [place] unspecified UNSPECIFIED EDT Physician) D64.9 Anemia, unspecified ANEMIA, UNSPECIFIED Problem 019 MEDGEN (Ammir 12:00:00 AM [place] EDT Physician) E55.9 Vitamin D VITAMIN D Problem 07/27/2018 MEDGEN (Ammir deficiency, DEFICIENCY, 12:00:00 AM [place] unspecified UNSPECIFIED EDT Physician) R10.30 Lower abdominal LOWER ABDOMINAL Problem 06/27/2018 MEDG EN (Ammir pain, unspecified PAIN, UNSPECIFIED 12:00:00 AM [place] EDT Physician) R19.7 Diarrhea, DIARRHEA, Problem 06/27/2018 MEDGEN (Ammir unspecified UNSPECIFIED 12:00:00 AM [place] EDT Physician) R11.0 Nausea NAUSEA Problem 06/27/2018 MEDGEN (Ammir 12:00:00 AM [place] EDT Physician) R10.30 Lower abdominal LOWER ABDOMINAL Problem 06/27/2018 MEDG EN (Ammir pain, unspecified PAIN, UNSPECIFIED 12:00:00 AM [place] EDT Physician) R19.7 Diarrhea, DIARRHEA, Problem 06/27/2018 MEDGEN (Ammir unspecified UNSPECIFIED 12:00:00 AM [place] EDT Physician) R11.0 Nausea NAUSEA Problem 06/27/2018 MEDGEN (Ammir 12:00:00 AM [place] EDT Physician) R10.30 Lower abdominal LOWER ABDOMINAL Problem 06/27/2018 MEDG EN (Ammir pain, unspecified PAIN, UNSPECIFIED 12:00:00 AM [place] EDT Physician) R19.7 Diarrhea, DIARRHEA, Problem 06/27/2018 MEDGEN (Ammir unspecified UNSPECIFIED 12:00:00 AM [place] EDT Physician) R11.0 Nausea NAUSEA Problem 06/27/2018 MEDGEN (Ammir 12:00:00 AM [place] EDT Physician) R10.30 Lower abdominal LOWER ABDOMINAL Problem 06/27/2018 MEDG EN (Ammir pain, unspecified PAIN, UNSPECIFIED 12:00:00 AM [place] EDT Physician) R19.7 Diarrhea, DIARRHEA, Problem 06/27/2018 MED[facility] (Ammir unspecified UNSPECIFIED 12:00:00 AM [place] EDT Physician) R11.0 Nausea NAUSEA Problem 06/27/2018 MED[facility] (Ammir 12:00:00 AM [place] EDT Physician) D50.9 Iron deficiency IRON DEFICIENCY Problem 03/23/2018 MEDG EN (Ammir anemia, unspecified ANEMIA, UNSPECIFIED 12:00:0 0 AM [place] EST Physician) D50.9 Iron deficiency IRON DEFICIENCY Problem 03/23/2018 MEDG EN (Ammir anemia, unspecified ANEMIA, UNSPECIFIED 12:00:0 0 AM [place] EST Physician) D50.9 Iron deficiency IRON DEFICIENCY Problem 03/23/2018 MEDG EN (Ammir anemia, unspecified ANEMIA, UNSPECIFIED 12:00:0 0 AM [place] EST Physician) D50.9 Iron deficiency IRON DEFICIENCY Problem 03/23/2018 MEDG EN (Ammir anemia, unspecified ANEMIA, UNSPECIFIED 12:00:0 0 AM [place] EST Physician) M54.5 Low back pain LOW BACK PAIN Problem 08/24/2017 MED[facility] ( Ammir 12:00:00 AM [place] EDT Physician) M54.5 Low back pain LOW BACK PAIN Problem 08/24/2017 MEDGEN ( Ammir 12:00:00 AM [place] EDT Physician) M54.5 Low back pain LOW BACK PAIN Problem 08/24/2017 MED[facility] ( Ammir 12:00:00 AM [place] EDT Physician) M54.5 Low back pain LOW BACK PAIN Problem 08/24/2017 MED[facility] ( Ammir 12:00:00 AM [place] EDT Physician) M85.80 Other specified OTHER SPECIFIED Problem 07/20/2017 MEDG EN (Ammir disorders of bone DISORDERS OF BONE 12:00:00 AM [place] density and DENSITY AND EDT Physician) structure, STRUCTURE, unspecified site UNSPECIFIED SITE M81.8 Other osteoporosis OTHER OSTEOPOROSIS Problem 8 MED[facility] (Ammir without current WITHOUT CURRENT 12:00:00 AM Rab kuldeep pathological PATHOLOGICAL EDT Physician) fracture FRACTURE R63.4 Abnormal weight ABNORMAL WEIGHT Problem 07/20/2017 MEDG EN (Ammir loss LOSS 12:00:00 AM [place] EDT Physician) M85.80 Other specified OTHER SPECIFIED Problem 07/20/2017 MEDG EN (Ammir disorders of bone DISORDERS OF BONE 12:00:00 AM [place] density and DENSITY AND EDT Physician) structure, STRUCTURE, unspecified site UNSPECIFIED SITE M81.8 Other osteoporosis OTHER OSTEOPOROSIS Problem 8 [facility] (Ammir without current WITHOUT CURRENT 12:00:00 AM Rab kuldeep pathological PATHOLOGICAL EDT Physician) fracture FRACTURE R63.4 Abnormal weight ABNORMAL WEIGHT Problem 07/20/2017 MEDG EN (Ammir loss LOSS 12:00:00 AM [place] EDT Physician) M85.80 Other specified OTHER SPECIFIED Problem 07/20/2017 MEDG EN (Ammir disorders of bone DISORDERS OF BONE 12:00:00 AM [place] density and DENSITY AND EDT Physician) structure, STRUCTURE, unspecified site UNSPECIFIED SITE M81.8 Other osteoporosis OTHER OSTEOPOROSIS Problem 8 [facility] (Ammir without current WITHOUT CURRENT 12:00:00 AM Rab kuldeep pathological PATHOLOGICAL EDT Physician) fracture FRACTURE R63.4 Abnormal weight ABNORMAL WEIGHT Problem 07/20/2017 MEDG EN (Ammir loss LOSS 12:00:00 AM [place] EDT Physician) M85.80 Other specified OTHER SPECIFIED Problem 07/20/2017 MEDG EN (Ammir disorders of bone DISORDERS OF BONE 12:00:00 AM [place] density and DENSITY AND EDT Physician) structure, STRUCTURE, unspecified site UNSPECIFIED SITE M81.8 Other osteoporosis OTHER OSTEOPOROSIS Problem 8 [facility] (Ammir without current WITHOUT CURRENT 12:00:00 AM Rab kuldeep pathological PATHOLOGICAL EDT Physician) fracture FRACTURE R63.4 Abnormal weight ABNORMAL WEIGHT Problem 07/20/2017 MEDG EN (Ammir loss LOSS 12:00:00 AM [place] EDT Physician) R63.0 Anorexia ANOREXIA Problem 04/26/2017 [facility] (Ammir 12:00:00 AM [place] EST Physician) R53.82 Chronic fatigue, CHRONIC FATIGUE, Problem 04/26/2017 ME DGEN (Ammir unspecified UNSPECIFIED 12:00:00 AM [place] EST Physician) R53.1 Weakness WEAKNESS Problem 04/26/2017 [facility] (Ammir 12:00:00 AM [place] EST Physician) R63.0 Anorexia ANOREXIA Problem 04/26/2017 [facility] (Ammir 12:00:00 AM [place] EST Physician) R53.82 Chronic fatigue, CHRONIC FATIGUE, Problem 04/26/2017 ME DGEN (Ammir unspecified UNSPECIFIED 12:00:00 AM [place] EST Physician) R53.1 Weakness WEAKNESS Problem 04/26/2017 [facility] (Ammir 12:00:00 AM [place] EST Physician) R63.0 Anorexia ANOREXIA Problem 04/26/2017 [facility] (Ammir 12:00:00 AM [place] EST Physician) R53.82 Chronic fatigue, CHRONIC FATIGUE, Problem 04/26/2017 ME DGEN (Ammir unspecified UNSPECIFIED 12:00:00 AM [place] EST Physician) R53.1 Weakness WEAKNESS Problem 04/26/2017 [facility] (Ammir 12:00:00 AM [place] EST Physician) R63.0 Anorexia ANOREXIA Problem 04/26/2017 [facility] (Ammir 12:00:00 AM [place] EST Physician) R53.82 Chronic fatigue, CHRONIC FATIGUE, Problem 04/26/2017 ME DGEN (Ammir unspecified UNSPECIFIED 12:00:00 AM [place] EST Physician) R53.1 Weakness WEAKNESS Problem 04/26/2017 [facility] (Ammir 12:00:00 AM [place] EST Physician) Z01.818 Encounter for other ENCOUNTER FOR OTHER Problem 018 [facility] (Ammir preprocedural PREPROCEDURAL 12:00:00 AM [place] examination EXAMINATION EST Physician) Z01.818 Encounter for other ENCOUNTER FOR OTHER Problem 018 [facility] (Ammir preprocedural PREPROCEDURAL 12:00:00 AM [place] examination EXAMINATION EST Physician) Z01.818 Encounter for other ENCOUNTER FOR OTHER Problem 018 [facility] (Ammir preprocedural PREPROCEDURAL 12:00:00 AM [place] examination EXAMINATION EST Physician) Z01.818 Encounter for other ENCOUNTER FOR OTHER Problem 018 [facility] (Ammir preprocedural PREPROCEDURAL 12:00:00 AM Wilamr examination EXAMINATION EST Physician) E78.5 Hyperlipidemia, HYPERLIPIDEMIA, Problem 11/30/2016 MEDG EN (Ammir unspecified UNSPECIFIED 12:00:00 AM [place] EDT Physician) E78.5 Hyperlipidemia, HYPERLIPIDEMIA, Problem 11/30/2016 MEDG EN (Ammir unspecified UNSPECIFIED 12:00:00 AM [place] EDT Physician) E78.5 Hyperlipidemia, HYPERLIPIDEMIA, Problem 11/30/2016 MEDG EN (Ammir unspecified UNSPECIFIED 12:00:00 AM [place] EDT Physician) E78.5 Hyperlipidemia, HYPERLIPIDEMIA, Problem 11/30/2016 MEDG EN (Ammir unspecified UNSPECIFIED 12:00:00 AM [place] EDT Physician) J45.998 Other asthma OTHER ASTHMA Problem 10/15/2016 [facility] (Am maria guadalupe 12:00:00 AM [place] EDT Physician) R05 Cough COUGH Problem 10/15/2016 [facility] (Ammir 12:00:00 AM [place] EDT Physician) J45.998 Other asthma OTHER ASTHMA Problem 10/15/2016 [facility] (Am maria guadalupe 12:00:00 AM [place] EDT Physician) R05 Cough COUGH Problem 10/15/2016 [facility] (Ammir 12:00:00 AM [place] EDT Physician) J45.998 Other asthma OTHER ASTHMA Problem 10/15/2016 [facility] (Am maria guadalupe 12:00:00 AM [place] EDT Physician) R05 Cough COUGH Problem 10/15/2016 [facility] (Ammir 12:00:00 AM [place] EDT Physician) J45.998 Other asthma OTHER ASTHMA Problem 10/15/2016 [facility] (Am maria guadalupe 12:00:00 AM [place] EDT Physician) R05 Cough COUGH Problem 10/15/2016 [facility] (Ammir 12:00:00 AM [place] EDT Physician) J06.9 Acute upper ACUTE UPPER Problem 10/08/2016 [facility] (Ammi r respiratory RESPIRATORY 12:00:00 AM [place] infection, INFECTION, EDT Physician) unspecified UNSPECIFIED J06.9 Acute upper ACUTE UPPER Problem 10/08/2016 [facility] (Ammi r respiratory RESPIRATORY 12:00:00 AM [place] infection, INFECTION, EDT Physician) unspecified UNSPECIFIED J06.9 Acute upper ACUTE UPPER Problem 10/08/2016 [facility] (Ammi r respiratory RESPIRATORY 12:00:00 AM [place] infection, INFECTION, EDT Physician) unspecified UNSPECIFIED J06.9 Acute upper ACUTE UPPER Problem 10/08/2016 [facility] (Ammi r respiratory RESPIRATORY 12:00:00 AM [place] infection, INFECTION, EDT Physician) unspecified UNSPECIFIED Z48.00 Encounter for ENCOUNTER FOR Problem 09/02/2016 [facility] ( Ammir change or removal CHANGE OR REMOVAL 12:00:00 AM [place] of nonsurgical OF NONSURGICAL EDT Physic darrion) wound dressing WOUND DRESSING Z48.00 Encounter for ENCOUNTER FOR Problem 09/02/2016 [facility] ( Ammir change or removal CHANGE OR REMOVAL 12:00:00 AM [place] of nonsurgical OF NONSURGICAL EDT Physic darrion) wound dressing WOUND DRESSING Z48.00 Encounter for ENCOUNTER FOR Problem 09/02/2016 [facility] ( Ammir change or removal CHANGE OR REMOVAL 12:00:00 AM [place] of nonsurgical OF NONSURGICAL EDT Physic darrion) wound dressing WOUND DRESSING Z48.00 Encounter for ENCOUNTER FOR Problem 09/02/2016 [facility] ( Ammir change or removal CHANGE OR REMOVAL 12:00:00 AM [place] of nonsurgical OF NONSURGICAL EDT Physic darrion) wound dressing WOUND DRESSING Z68.23 Body mass index BODY MASS INDEX Problem 08/31/2016 [facility] (Ammir (BMI) 23.0-23.9, (BMI) 23.0-23.9, 12:00:00 AM R vandana adult ADULT EDT Physician) W55.01XA Bitten by cat, BITTEN BY CAT, Problem 08/31/2016 [facility] (Ammir initial encounter INITIAL ENCOUNTER 12:00:00 AM [place] EDT Physician) Z68.23 Body mass index BODY MASS INDEX Problem 08/31/2016 [facility] (Ammir (BMI) 23.0-23.9, (BMI) 23.0-23.9, 12:00:00 AM R vandana adult ADULT EDT Physician) W55.01XA Bitten by cat, BITTEN BY CAT, Problem 08/31/2016 [facility] (Ammir initial encounter INITIAL ENCOUNTER 12:00:00 AM [place] EDT Physician) Z68.23 Body mass index BODY MASS INDEX Problem 08/31/2016 [facility] (Ammir (BMI) 23.0-23.9, (BMI) 23.0-23.9, 12:00:00 AM R vandana adult ADULT EDT Physician) W55.01XA Bitten by cat, BITTEN BY CAT, Problem 08/31/2016 [facility] (Ammir initial encounter INITIAL ENCOUNTER 12:00:00 AM [place] EDT Physician) Z68.23 Body mass index BODY MASS INDEX Problem 08/31/2016 [facility] (Ammir (BMI) 23.0-23.9, (BMI) 23.0-23.9, 12:00:00 AM R vandana adult ADULT EDT Physician) W55.01XA Bitten by cat, BITTEN BY CAT, Problem 08/31/2016 [facility] (Ammir initial encounter INITIAL ENCOUNTER 12:00:00 AM [place] EDT Physician) M13.0 Polyarthritis, POLYARTHRITIS, Problem 08/07/2016 [facility] (Ammir unspecified UNSPECIFIED 12:00:00 AM [place] EDT Physician) M13.0 Polyarthritis, POLYARTHRITIS, Problem 08/07/2016 [facility] (Ammir unspecified UNSPECIFIED 12:00:00 AM [place] EDT Physician) M13.0 Polyarthritis, POLYARTHRITIS, Problem 08/07/2016 [facility] (Ammir unspecified UNSPECIFIED 12:00:00 AM [place] EDT Physician) M13.0 Polyarthritis, POLYARTHRITIS, Problem 08/07/2016 [facility] (Ammir unspecified UNSPECIFIED 12:00:00 AM [place] EDT Physician) Z00.00 Encounter for ENCOUNTER FOR Problem 06/23/2016 [facility] ( Ammir general adult GENERAL ADULT 12:00:00 AM [place] medical examination MEDICAL EXAMINATION EDT Physician) without abnormal WITHOUT ABNORMAL findings FINDINGS Z00.00 Encounter for ENCOUNTER FOR Problem 06/23/2016 [facility] ( Ammir general adult GENERAL ADULT 12:00:00 AM [place] medical examination MEDICAL EXAMINATION EDT Physician) without abnormal WITHOUT ABNORMAL findings FINDINGS Z00.00 Encounter for ENCOUNTER FOR Problem 06/23/2016 [facility] ( Ammir general adult GENERAL ADULT 12:00:00 AM [place] medical examination MEDICAL EXAMINATION EDT Physician) without abnormal WITHOUT ABNORMAL findings FINDINGS Z00.00 Encounter for ENCOUNTER FOR Problem 06/23/2016 [facility] ( Ammir general adult GENERAL ADULT 12:00:00 AM [place] medical examination MEDICAL EXAMINATION EDT Physician) without abnormal WITHOUT ABNORMAL findings FINDINGS Z68.24 Body mass index BODY MASS INDEX Problem 05/26/2016 [facility] (Ammir (BMI) 24.0-24.9, (BMI) 24.0-24.9, 12:00:00 AM R vandana adult ADULT EDT Physician) Z68.24 Body mass index BODY MASS INDEX Problem 05/26/2016 [facility] (Ammir (BMI) 24.0-24.9, (BMI) 24.0-24.9, 12:00:00 AM R vandana adult ADULT EDT Physician) Z68.24 Body mass index BODY MASS INDEX Problem 05/26/2016 [facility] (Ammir (BMI) 24.0-24.9, (BMI) 24.0-24.9, 12:00:00 AM R vandana adult ADULT EDT Physician) Z68.24 Body mass index BODY MASS INDEX Problem 05/26/2016 [facility] (Ammir (BMI) 24.0-24.9, (BMI) 24.0-24.9, 12:00:00 AM R vandana adult ADULT EDT Physician) 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, NEUROPATHY, EST Physician) unspecified UNSPECIFIED Z13.89 Encounter for ENCOUNTER FOR Problem 03/24/2016 [facility] ( Ammir screening for other SCREENING FOR OTHER 12:00:0 0 AM [place] disorder DISORDER EST Physician) I10 Essential (primary) ESSENTIAL (PRIMARY) Problem 017 [facility] (Ammir hypertension HYPERTENSION 12:00:00 AM [place] EST Physician) R00.2 Palpitations PALPITATIONS Problem 03/24/2016 [facility] (Am maria guadalupe 12:00:00 AM [place] EST Physician) 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, NEUROPATHY, EST Physician) unspecified UNSPECIFIED Z13.89 Encounter for ENCOUNTER FOR Problem 03/24/2016 [facility] ( Ammir screening for other SCREENING FOR OTHER 12:00:0 0 AM [place] disorder DISORDER EST Physician) I10 Essential (primary) ESSENTIAL (PRIMARY) Problem 017 [facility] (Ammir hypertension HYPERTENSION 12:00:00 AM [place] EST Physician) R00.2 Palpitations PALPITATIONS Problem 03/24/2016 [facility] (Am maria guadalupe 12:00:00 AM [place] EST Physician) 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, NEUROPATHY, EST Physician) unspecified UNSPECIFIED Z13.89 Encounter for ENCOUNTER FOR Problem 03/24/2016 [facility] ( Ammir screening for other SCREENING FOR OTHER 12:00:0 0 AM [place] disorder DISORDER EST Physician) I10 Essential (primary) ESSENTIAL (PRIMARY) Problem 017 [facility] (Ammir hypertension HYPERTENSION 12:00:00 AM [place] EST Physician) R00.2 Palpitations PALPITATIONS Problem 03/24/2016 [facility] (Am maria guadalupe 12:00:00 AM [place] EST Physician) 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, NEUROPATHY, EST Physician) unspecified UNSPECIFIED Z13.89 Encounter for ENCOUNTER FOR Problem 03/24/2016 [facility] ( Ammir screening for other SCREENING FOR OTHER 12:00:0 0 AM [place] disorder DISORDER EST Physician) I10 Essential (primary) ESSENTIAL (PRIMARY) Problem 017 [facility] (Ammir hypertension HYPERTENSION 12:00:00 AM [place] EST Physician) R00.2 Palpitations PALPITATIONS Problem 03/24/2016 [facility] (Am maria guadalupe 12:00:00 AM [place] EST Physician) M81.0 Age-related AGE-RELATED Problem 02/26/2016 [facility] (Ammi r osteoporosis OSTEOPOROSIS 12:00:00 AM [place] without current WITHOUT CURRENT EST Phys ician) pathological PATHOLOGICAL fracture FRACTURE Z79.01 ocean transportation intermediary (current) INFECTION PREVENTION COORDINATOR (CURRENT) Problem 016 [facility] (Ammir use of USE OF 12:00:00 AM [place] anticoagulants ANTICOAGULANTS EST Physic darrion) I48.2 Chronic atrial CHRONIC ATRIAL Problem 02/26/2016 [facility] (Ammir fibrillation FIBRILLATION 12:00:00 AM [place] EST Physician) F41.9 Anxiety disorder, ANXIETY DISORDER, Problem 02/26/2016 [facility] (Ammir unspecified UNSPECIFIED 12:00:00 AM [place] EST Physician) R25.1 Tremor, unspecified TREMOR, UNSPECIFIED Problem 016 [facility] (Ammir 12:00:00 AM [place] EST Physician) K21.9 Gastro-esophageal GASTRO-ESOPHAGEAL Problem 02/26/2016 [facility] (Ammir reflux disease REFLUX DISEASE 12:00:00 AM Rabad i without esophagitis WITHOUT ESOPHAGITIS EST Physician) 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, ARTHROPATHY, Problem 02/26/2016 [facility] (Am maria guadalupe unspecified UNSPECIFIED 12:00:00 AM [place] EST Physician) I11.9 Hypertensive heart HYPERTENSIVE HEART Problem 6 [facility] (Ammir disease without DISEASE WITHOUT 12:00:00 AM Rab kuldeep heart failure HEART FAILURE EST Physicia n) K02.9 Dental caries, DENTAL CARIES, Problem 02/26/2016 [facility] (Ammir unspecified UNSPECIFIED 12:00:00 AM [place] EST Physician) M81.0 Age-related AGE-RELATED Problem 02/26/2016 [facility] (Ammi r osteoporosis OSTEOPOROSIS 12:00:00 AM [place] without current WITHOUT CURRENT EST Phys ician) pathological PATHOLOGICAL fracture FRACTURE Z79.01 detention (current) INFECTION PREVENTION COORDINATOR (CURRENT) Problem 016 [facility] (Ammir use of USE OF 12:00:00 AM [place] anticoagulants ANTICOAGULANTS EST Physic darrion) I48.2 Chronic atrial CHRONIC ATRIAL Problem 02/26/2016 [facility] (Ammir fibrillation FIBRILLATION 12:00:00 AM [place] EST Physician) F41.9 Anxiety disorder, ANXIETY DISORDER, Problem 02/26/2016 [facility] (Ammir unspecified UNSPECIFIED 12:00:00 AM [place] EST Physician) R25.1 Tremor, unspecified TREMOR, UNSPECIFIED Problem 016 [facility] (Ammir 12:00:00 AM [place] EST Physician) K21.9 Gastro-esophageal GASTRO-ESOPHAGEAL Problem 02/26/2016 [facility] (Ammir reflux disease REFLUX DISEASE 12:00:00 AM Rabad i without esophagitis WITHOUT ESOPHAGITIS EST Physician) 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, ARTHROPATHY, Problem 02/26/2016 [facility] (Am maria guadalupe unspecified UNSPECIFIED 12:00:00 AM [place] EST Physician) I11.9 Hypertensive heart HYPERTENSIVE HEART Problem 6 [facility] (Ammir disease without DISEASE WITHOUT 12:00:00 AM Rab kuldeep heart failure HEART FAILURE EST Physicia n) K02.9 Dental caries, DENTAL CARIES, Problem 02/26/2016 [facility] (Ammir unspecified UNSPECIFIED 12:00:00 AM [place] EST Physician) M81.0 Age-related AGE-RELATED Problem 02/26/2016 [facility] (Ammi r osteoporosis OSTEOPOROSIS 12:00:00 AM [place] without current WITHOUT CURRENT EST Phys ician) pathological PATHOLOGICAL fracture FRACTURE Z79.01 ocean transportation intermediary (current) INFECTION PREVENTION COORDINATOR (CURRENT) Problem 016 [facility] (Ammir use of USE OF 12:00:00 AM [place] anticoagulants ANTICOAGULANTS EST Physic darrion) I48.2 Chronic atrial CHRONIC ATRIAL Problem 02/26/2016 [facility] (Ammir fibrillation FIBRILLATION 12:00:00 AM [place] EST Physician) F41.9 Anxiety disorder, ANXIETY DISORDER, Problem 02/26/2016 [facility] (Ammir unspecified UNSPECIFIED 12:00:00 AM [place] EST Physician) R25.1 Tremor, unspecified TREMOR, UNSPECIFIED Problem 016 [facility] (Ammir 12:00:00 AM [place] EST Physician) K21.9 Gastro-esophageal GASTRO-ESOPHAGEAL Problem 02/26/2016 [facility] (Ammir reflux disease REFLUX DISEASE 12:00:00 AM Rabad i without esophagitis WITHOUT ESOPHAGITIS EST Physician) 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, ARTHROPATHY, Problem 02/26/2016 [facility] (Am maria guadalupe unspecified UNSPECIFIED 12:00:00 AM [place] EST Physician) I11.9 Hypertensive heart HYPERTENSIVE HEART Problem 6 [facility] (Ammir disease without DISEASE WITHOUT 12:00:00 AM Rab kuldeep heart failure HEART FAILURE EST Physicia n) K02.9 Dental caries, DENTAL CARIES, Problem 02/26/2016 [facility] (Ammir unspecified UNSPECIFIED 12:00:00 AM [place] EST Physician) M81.0 Age-related AGE-RELATED Problem 02/26/2016 [facility] (Ammi r osteoporosis OSTEOPOROSIS 12:00:00 AM [place] without current WITHOUT CURRENT EST Phys ician) pathological PATHOLOGICAL fracture FRACTURE Z79.01 ocean transportation intermediary (current) INFECTION PREVENTION COORDINATOR (CURRENT) Problem 016 [facility] (Ammir use of USE OF 12:00:00 AM [place] anticoagulants ANTICOAGULANTS EST Physic darrion) I48.2 Chronic atrial CHRONIC ATRIAL Problem 02/26/2016 [facility] (Ammir fibrillation FIBRILLATION 12:00:00 AM [place] EST Physician) F41.9 Anxiety disorder, ANXIETY DISORDER, Problem 02/26/2016 [facility] (Ammir unspecified UNSPECIFIED 12:00:00 AM [place] EST Physician) R25.1 Tremor, unspecified TREMOR, UNSPECIFIED Problem 016 [facility] (Ammir 12:00:00 AM [place] EST Physician) K21.9 Gastro-esophageal GASTRO-ESOPHAGEAL Problem 02/26/2016 [facility] (Ammir reflux disease REFLUX DISEASE 12:00:00 AM Rabad i without esophagitis WITHOUT ESOPHAGITIS EST Physician) 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, ARTHROPATHY, Problem 02/26/2016 [facility] (Am maria guadalupe unspecified UNSPECIFIED 12:00:00 AM [place] EST Physician) I11.9 Hypertensive heart HYPERTENSIVE HEART Problem 6 [facility] (Ammir disease without DISEASE WITHOUT 12:00:00 AM Rab kuldeep heart failure HEART FAILURE EST Physicia n) K02.9 Dental caries, DENTAL CARIES, Problem 02/26/2016 [facility] (Ammir unspecified UNSPECIFIED 12:00:00 AM [place] EST Physician) Surgeries/Procedures Procedure Description Date Indications Data Source(s) Documentation of current 06/27/2018 [facility] (Ammir [place] medications (procedure) 12:00:00 AM EDT P hysician) Documentation of current 06/27/2018 [facility] (Ammir [place] medications (procedure) 12:00:00 AM EDT P hysician) Documentation of current 06/27/2018 [facility] (Ammir [place] medications (procedure) 12:00:00 AM EDT P hysician) Documentation of current 06/27/2018 [facility] (Ammir [place] medications (procedure) 12:00:00 AM EDT P hysician) Documentation of current 06/27/2018 [facility] (Ammir [place] medications (procedure) 12:00:00 AM EDT P hysician) Documentation of current 06/27/2018 [facility] (Ammir [place] medications (procedure) 12:00:00 AM EDT P hysician) Documentation of current 06/27/2018 [facility] (Ammir [place] medications (procedure) 12:00:00 AM EDT P hysician) Documentation of current 06/27/2018 [facility] (Ammir [place] medications (procedure) 12:00:00 AM EDT P hysician) Documentation of current 06/27/2018 [facility] (Ammir [place] medications (procedure) 12:00:00 AM EDT P hysician) Documentation of current 06/27/2018 [facility] (Ammir [place] medications (procedure) 12:00:00 AM EDT P hysician) Documentation of current 06/27/2018 [facility] (Ammir [place] medications (procedure) 12:00:00 AM EDT P hysician) Documentation of current 06/27/2018 [facility] (Ammir [place] medications (procedure) 12:00:00 AM EDT P hysician) Documentation of current 06/27/2018 [facility] (Ammir [place] medications (procedure) 12:00:00 AM EDT P hysician) Documentation of current 06/27/2018 [facility] (Ammir [place] medications (procedure) 12:00:00 AM EDT P hysician) Documentation of current 06/27/2018 [facility] (Ammir [place] medications (procedure) 12:00:00 AM EDT P hysician) Documentation of current 06/27/2018 [facility] (Ammir [place] medications (procedure) 12:00:00 AM EDT P hysician) Documentation of current 08/24/2017 [facility] (Ammir [place] medications (procedure) 12:00:00 AM EDT P hysician) Documentation of current 08/24/2017 [facility] (Ammir [place] medications (procedure) 12:00:00 AM EDT P hysician) Documentation of current 08/24/2017 [facility] (Ammir [place] medications (procedure) 12:00:00 AM EDT P hysician) Documentation of current 08/24/2017 [facility] (Ammir [place] medications (procedure) 12:00:00 AM EDT P hysician) Documentation of current 08/24/2017 [facility] (Ammir [place] medications (procedure) 12:00:00 AM EDT P hysician) Documentation of current 08/24/2017 [facility] (Ammir [place] medications (procedure) 12:00:00 AM EDT P hysician) Documentation of current 08/24/2017 [facility] (Ammir [place] medications (procedure) 12:00:00 AM EDT P hysician) Documentation of current 08/24/2017 [facility] (Ammir [place] medications (procedure) 12:00:00 AM EDT P hysician) Documentation of current 08/24/2017 [facility] (Ammir [place] medications (procedure) 12:00:00 AM EDT P hysician) Documentation of current 08/24/2017 [facility] (Ammir [place] medications (procedure) 12:00:00 AM EDT P hysician) Documentation of current 08/24/2017 [facility] (Ammir [place] medications (procedure) 12:00:00 AM EDT P hysician) Documentation of current 08/24/2017 [facility] (Ammir [place] medications (procedure) 12:00:00 AM EDT P hysician) Documentation of current 07/20/2017 [facility] (Ammir [place] medications (procedure) 12:00:00 AM EDT P hysician) Documentation of current 07/20/2017 [facility] (Ammir [place] medications (procedure) 12:00:00 AM EDT P hysician) Documentation of current 07/20/2017 [facility] (Ammir [place] medications (procedure) 12:00:00 AM EDT P hysician) Documentation of current 07/20/2017 [facility] (Ammir [place] medications (procedure) 12:00:00 AM EDT P hysician) Documentation of current 07/20/2017 [facility] (Ammir [place] medications (procedure) 12:00:00 AM EDT P hysician) Documentation of current 07/20/2017 [facility] (Ammir [place] medications (procedure) 12:00:00 AM EDT P hysician) Documentation of current 07/20/2017 [facility] (Ammir [place] medications (procedure) 12:00:00 AM EDT P hysician) Documentation of current 07/20/2017 [facility] (Ammir [place] medications (procedure) 12:00:00 AM EDT P hysician) Documentation of current 07/20/2017 [facility] (Ammir [place] medications (procedure) 12:00:00 AM EDT P hysician) Documentation of current 07/20/2017 [facility] (Ammir [place] medications (procedure) 12:00:00 AM EDT P hysician) Documentation of current 07/20/2017 [facility] (Ammir [place] medications (procedure) 12:00:00 AM EDT P hysician) Documentation of current 07/20/2017 [facility] (Ammir [place] medications (procedure) 12:00:00 AM EDT P hysician) Documentation of current 03/29/2017 [facility] (Ammir [place] medications (procedure) 12:00:00 AM EST P hysician) Documentation of current 03/29/2017 [facility] (Ammir [place] medications (procedure) 12:00:00 AM EST P hysician) Documentation of current 03/29/2017 [facility] (Ammir [place] medications (procedure) 12:00:00 AM EST P hysician) Documentation of current 03/29/2017 [facility] (Ammir [place] medications (procedure) 12:00:00 AM EST P hysician) Documentation of current 03/29/2017 [facility] (Ammir [place] medications (procedure) 12:00:00 AM EST P hysician) Documentation of current 03/29/2017 [facility] (Ammir [place] medications (procedure) 12:00:00 AM EST P hysician) Documentation of current 03/29/2017 [facility] (Ammir [place] medications (procedure) 12:00:00 AM EST P hysician) Documentation of current 03/29/2017 [facility] (Ammir [place] medications (procedure) 12:00:00 AM EST P hysician) Documentation of current 03/29/2017 [facility] (Ammir [place] medications (procedure) 12:00:00 AM EST P hysician) Documentation of current 03/29/2017 [facility] (Ammir [place] medications (procedure) 12:00:00 AM EST P hysician) Documentation of current 03/29/2017 [facility] (Ammir [place] medications (procedure) 12:00:00 AM EST P hysician) Documentation of current 03/29/2017 [facility] (Ammir [place] medications (procedure) 12:00:00 AM EST P hysician) Documentation of current 01/19/2017 [facility] (Ammir [place] medications (procedure) 12:00:00 AM EST P hysician) Documentation of current 01/19/2017 [facility] (Ammir [place] medications (procedure) 12:00:00 AM EST P hysician) Documentation of current 01/19/2017 [facility] (Ammir [place] medications (procedure) 12:00:00 AM EST P hysician) Documentation of current 01/19/2017 [facility] (Ammir [place] medications (procedure) 12:00:00 AM EST P hysician) Documentation of current 01/19/2017 [facility] (Ammir [place] medications (procedure) 12:00:00 AM EST P hysician) Documentation of current 01/19/2017 [facility] (Ammir [place] medications (procedure) 12:00:00 AM EST P hysician) Documentation of current 01/19/2017 [facility] (Ammir [place] medications (procedure) 12:00:00 AM EST P hysician) Documentation of current 01/19/2017 [facility] (Ammir [place] medications (procedure) 12:00:00 AM EST P hysician) Documentation of current 01/19/2017 [facility] (Ammir [place] medications (procedure) 12:00:00 AM EST P hysician) Documentation of current 01/19/2017 [facility] (Ammir [place] medications (procedure) 12:00:00 AM EST P hysician) Documentation of current 01/19/2017 [facility] (Ammir [place] medications (procedure) 12:00:00 AM EST P hysician) Documentation of current 01/19/2017 [facility] (Ammir [place] medications (procedure) 12:00:00 AM EST P hysician) Documentation of current 01/19/2017 [facility] (Ammir [place] medications (procedure) 12:00:00 AM EST P hysician) Documentation of current 01/19/2017 [facility] (Ammir [place] medications (procedure) 12:00:00 AM EST P hysician) Documentation of current 01/19/2017 [facility] (Ammir [place] medications (procedure) 12:00:00 AM EST P hysician) Documentation of current 01/19/2017 [facility] (Ammir [place] medications (procedure) 12:00:00 AM EST P hysician) Documentation of current 07/28/2016 [facility] (Ammir [place] medications (procedure) 12:00:00 AM EDT P hysician) Documentation of current 07/28/2016 [facility] (Ammir [place] medications (procedure) 12:00:00 AM EDT P hysician) Documentation of current 07/28/2016 [facility] (Ammir [place] medications (procedure) 12:00:00 AM EDT P hysician) Documentation of current 07/28/2016 [facility] (Ammir [place] medications (procedure) 12:00:00 AM EDT P hysician) Documentation of current 06/23/2016 [facility] (Ammir [place] medications (procedure) 12:00:00 AM EDT P hysician) Documentation of current 06/23/2016 [facility] (Ammir [place] medications (procedure) 12:00:00 AM EDT P hysician) Documentation of current 06/23/2016 [facility] (Ammir [place] medications (procedure) 12:00:00 AM EDT P hysician) Documentation of current 06/23/2016 [facility] (Ammir [place] medications (procedure) 12:00:00 AM EDT P hysician) Documentation of current 06/23/2016 [facility] (Ammir [place] medications (procedure) 12:00:00 AM EDT P hysician) Documentation of current 06/23/2016 [facility] (Ammir [place] medications (procedure) 12:00:00 AM EDT P hysician) Documentation of current 06/23/2016 [facility] (Ammir [place] medications (procedure) 12:00:00 AM EDT P hysician) Documentation of current 06/23/2016 [facility] (Ammir [place] medications (procedure) 12:00:00 AM EDT P hysician) Documentation of current 06/23/2016 [facility] (Ammir [place] medications (procedure) 12:00:00 AM EDT P hysician) Documentation of current 06/23/2016 [facility] (Ammir [place] medications (procedure) 12:00:00 AM EDT P hysician) Documentation of current 06/23/2016 [facility] (Ammir [place] medications (procedure) 12:00:00 AM EDT P hysician) Documentation of current 06/23/2016 [facility] (Ammir [place] medications (procedure) 12:00:00 AM EDT P hysician) Documentation of current 04/28/2016 [facility] (Ammir [place] medications (procedure) 12:00:00 AM EST P hysician) Documentation of current 04/28/2016 [facility] (Ammir [place] medications (procedure) 12:00:00 AM EST P hysician) Documentation of current 04/28/2016 [facility] (Ammir [place] medications (procedure) 12:00:00 AM EST P hysician) Documentation of current 04/28/2016 [facility] (Ammir [place] medications (procedure) 12:00:00 AM EST P hysician) Documentation of current 04/28/2016 [facility] (Ammir [place] medications (procedure) 12:00:00 AM EST P hysician) Documentation of current 04/28/2016 [facility] (Ammir [place] medications (procedure) 12:00:00 AM EST P hysician) Documentation of current 04/28/2016 [facility] (Ammir [place] medications (procedure) 12:00:00 AM EST P hysician) Documentation of current 04/28/2016 [facility] (Ammir [place] medications (procedure) 12:00:00 AM EST P hysician) Documentation of current 03/24/2016 [facility] (Ammir [place] medications (procedure) 12:00:00 AM EST P hysician) Documentation of current 03/24/2016 [facility] (Ammir [place] medications (procedure) 12:00:00 AM EST P hysician) Documentation of current 03/24/2016 [facility] (Ammir [place] medications (procedure) 12:00:00 AM EST P hysician) Documentation of current 03/24/2016 [facility] (Ammir [place] medications (procedure) 12:00:00 AM EST P hysician) Documentation of current 03/24/2016 MED GEN (Ammir Wilmar medications (procedure) 12:00:00 AM EST P hysician) Documentation of current 03/24/2016 MED GEN (Ammir Wilmar medications (procedure) 12:00:00 AM EST P hysician) Documentation of current 03/24/2016 MED GEN (Ammir Wilmar medications (procedure) 12:00:00 AM EST P hysician) Documentation of current 03/24/2016 MED GEN (Ammir Wilmar medications (procedure) 12:00:00 AM EST P hysician) Documentation of current 03/24/2016 MED GEN (Ammir Wilmar medications (procedure) 12:00:00 AM EST P hysician) Documentation of current 03/24/2016 MED GEN (Ammir Wilmar medications (procedure) 12:00:00 AM EST P hysician) Documentation of current 03/24/2016 MED GEN (Ammir Wilmar medications (procedure) 12:00:00 AM EST P hysician) Documentation of current 03/24/2016 MED GEN (Ammir Wilmar medications (procedure) 12:00:00 AM EST P hysician) Documentation of current 03/24/2016 MED GEN (Ammir Wilmar medications (procedure) 12:00:00 AM EST P hysician) Documentation of current 03/24/2016 MED GEN (Ammir Wilmar medications (procedure) 12:00:00 AM EST P hysician) Documentation of current 03/24/2016 MED GEN (Ammir Wilmar medications (procedure) 12:00:00 AM EST P hysician) Documentation of current 03/24/2016 MED GEN (Ammir Wilmar medications (procedure) 12:00:00 AM EST P hysician) Documentation of current 03/24/2016 MED GEN (Ammir Wilmar medications (procedure) 12:00:00 AM EST P hysician) Documentation of current 03/24/2016 MED GEN (Ammir Wilmar medications (procedure) 12:00:00 AM EST P hysician) Documentation of current 03/24/2016 MED GEN (Ammir Wilmar medications (procedure) 12:00:00 AM EST P hysician) Documentation of current 03/24/2016 MED GEN (Ammir Wilmar medications (procedure) 12:00:00 AM EST P hysician) Documentation of current 03/24/2016 MED GEN (Ammir Wilmar medications (procedure) 12:00:00 AM EST P hysician) Documentation of current 03/24/2016 MED GEN (Ammir Wilmar medications (procedure) 12:00:00 AM EST P hysician) Documentation of current 03/24/2016 MED GEN (Ammir Wilmar medications (procedure) 12:00:00 AM EST P hysician) Documentation of current 03/24/2016 MED GEN (Ammir Wilmar medications (procedure) 12:00:00 AM EST P hysician) Documentation of current 03/24/2016 MED GEN (Ammir Wilmar medications (procedure) 12:00:00 AM EST P hysician) Documentation of current 03/24/2016 MED GEN (Ammir Wilmar medications (procedure) 12:00:00 AM EST P hysician) Documentation of current 03/24/2016 MED GEN (Ammir Wilmar medications (procedure) 12:00:00 AM EST P hysician) Documentation of current 03/24/2016 MED GEN (Ammir Wilmar medications (procedure) 12:00:00 AM EST P hysician) Documentation of current 03/24/2016 MED GEN (Ammir Wilmar medications (procedure) 12:00:00 AM EST P hysician) Documentation of current 03/24/2016 MED GEN (Ammir Wilmar medications (procedure) 12:00:00 AM EST P hysician) Documentation of current 03/24/2016 MED GEN (Ammir Wilmar medications (procedure) 12:00:00 AM EST P hysician) Documentation of current 03/24/2016 MED GEN (Ammir Wilmar medications (procedure) 12:00:00 AM EST P hysician) Documentation of current 03/24/2016 MED GEN (Ammir Wilmar medications (procedure) 12:00:00 AM EST P hysician) Documentation of current 03/24/2016 MED GEN (Ammir Wilmar medications (procedure) 12:00:00 AM EST P hysician) Documentation of current 03/24/2016 MED GEN (Ammir Wilmar medications (procedure) 12:00:00 AM EST P hysician) Documentation of current 03/24/2016 MED GEN (Ammir Wilmar medications (procedure) 12:00:00 AM EST P hysician) Documentation of current 03/24/2016 MED GEN (Ammir Wilmar medications (procedure) 12:00:00 AM EST P hysician) Documentation of current 03/24/2016 MED GEN (Ammir Wilmar medications (procedure) 12:00:00 AM EST P hysician) Documentation of current 03/24/2016 MED GEN (Ammir Wilmar medications (procedure) 12:00:00 AM EST P hysician) Documentation of current 03/24/2016 MED GEN (Ammir Wilmar medications (procedure) 12:00:00 AM EST P hysician) Documentation of current 03/24/2016 MED GEN (Ammir Wilmar medications (procedure) 12:00:00 AM EST P hysician) Documentation of current 03/24/2016 MED GEN (Ammir Wilmar medications (procedure) 12:00:00 AM EST P hysician) Documentation of current 03/24/2016 MED GEN (Ammir Wilmar medications (procedure) 12:00:00 AM EST P hysician) Documentation of current 03/24/2016 MED GEN (Ammir Wilmar medications (procedure) 12:00:00 AM EST P hysician) Results ID Date Data Source [id number] 11/05/2019 01:29:00 PM EDT [facility] Name Value Range Interpretation Description Data Sup porting Code Source(s) Document(s ) SARS [facility] coronavirus 2 RNA This lab was ordered by [facility] and reported by [facility]. ID Date Data Source [id number] 10/04/2019 12:00:00 AM EDT [facility] (Ammir Wilmar Physician) Name Value Range Interpretation Description Data Sup porting Code Source(s) Document(s ) WBC 7.0 Normal (applies [facility] 10(3)/uL to non-numeric (Ammir results) Wilmar Physician) RBC 5.0 Normal (applies [facility] 10(6)/uL to non-numeric (Ammir results) Wilmar Physician) Hemoglobin 14.8 g/dL Normal (applies [facility] [Mass/volume] to non-numeric (Ammir in Mixed venous results) Wilmar blood by Physician) Oximetry Hematocrit 44.4 % Normal (applies [facility] [Pure volume to non-numeric (Ammir fraction] of results) Wilmar Blood by Physician) Automated count MCV 89.2 fL Normal (applies [facility] to non-numeric (Ammir results) Wilmar Physician) MCH 30 pg Normal (applies [facility] to non-numeric (Ammir results) Wilmar Physician) MCHC 33 g/dL Normal (applies [facility] to non-numeric (Ammir results) Wilmar Physician) RDWSD 40.8 fL Normal (applies [facility] to non-numeric (Ammir results) Wilmar Physician) RDWCV 12.6 % Normal (applies [facility] to non-numeric (Ammir results) Wilmar Physician) Platelet Count 250 Normal (applies [facility] 10(3)/uL to non-numeric (Ammir results) Wilmar Physician) MPV 11.2 fL Normal (applies [facility] to non-numeric (Ammir results) Wilmar Physician) Neutrophil Abs 3.74 Normal (applies [facility] 10(3)/uL to non-numeric (Ammir results) Wilmar Physician) Lymphocyte Abs 2.32 Normal (applies [facility] 10(3)/uL to non-numeric (Ammir results) Wilmar Physician) Monocyte Abs 0.72 Normal (applies [facility] 10(3)/uL to non-numeric (Ammir results) Wilmar Physician) Eosinophil Abs 0.11 Normal (applies [facility] 10(3)/uL to non-numeric (Ammir results) Wilmar Physician) Basophil Abs 0.03 Normal (applies [facility] 10(3)/uL to non-numeric (Ammir results) Wilmar Physician) Immature 0.03 Normal (applies [facility] Granulocyte Abs 10(3)/uL to non-numeric (Ammir results) Wilmar Physician) Neutrophil % 53.80 % Normal (applies [facility] to non-numeric (Ammir results) Wilmar Physician) Lymphocyte % 33 % Normal (applies [facility] to non-numeric (Ammir results) Wilmar Physician) Monocyte % 10.4 % Normal (applies [facility] to non-numeric (Ammir results) Wilmar Physician) Eosinophil % 1.6 % Normal (applies [facility] to non-numeric (Ammir results) Wilmar Physician) Basophil % 0.4 % Normal (applies [facility] to non-numeric (Ammir results) Wilmar Physician) Immature 0.40 % Normal (applies [facility] Granulocyte % to non-numeric (Ammir results) Wilmar Physician) NRBC % 0.0 % Normal (applies [facility] to non-numeric (Ammir results) Wilmar Physician) NRBC Abs 0.00 Normal (applies [facility] 10(3)/uL to non-numeric (Ammir results) Wilmar Physician) ID Date Data Source [id number] 10/04/2019 12:00:00 AM EDT [facility] (Ammir Wilmar Physician) Name Value Range Interpretation Description Data Sup porting Code Source(s) Document(s ) GLUCOSE 70 mg/dL Normal (applies [facility] NONFASTING,SERUM to non-numeric (Ammir results) Wilmar Physician) SODIUM, SERUM 141 Normal (applies [facility] mEq/L to non-numeric (Ammir results) Wilmar Physician) POTASSIUM, SERUM 4.1 Normal (applies [facility] mEq/L to non-numeric (Ammir results) Wilmar Physician) CHLORIDE, SERUM 102 Normal (applies [facility] mEq/L to non-numeric (Ammir results) Wilmar Physician) Carbon dioxide 26 mEq/L Normal (applies [facility] [VFr/PPres] in to non-numeric (Ammir Gas delivery results) Wilmar system Physician) Anion gap in 17.1 Normal (applies [facility] Body fluid mEq/L to non-numeric (Ammir results) Wilmar Physician) BLOOD UREA 19 mg/dL Normal (applies [facility] NITROGEN to non-numeric (Ammir results) Wilmar Physician) CREATININE, 1.10 Above high normal [facility] SERUM mg/dL (Ammir Wilmar Physician) BUN/CREATININE 17.27 Normal (applies [facility] RATIO to non-numeric (Ammir results) Wilmar Physician) CALCIUM, SERUM 10.1 Normal (applies [facility] mg/dL to non-numeric (Ammir results) Wilmar Physician) TOTAL PROTEIN 7.9 g/dL Normal (applies [facility] to non-numeric (Ammir results) Wilmar Physician) Microalbumin 4.8 g/dL Normal (applies [facility] [Mass/time] in to non-numeric (Ammir Urine collected results) Wilmar for unspecified Physician) duration Globulin 3.1 gldl Normal (applies [facility] [Mass/time] in to non-numeric (Ammir 24 hour Urine results) Wilmar Physician) A/G RATIO 1.55 Normal (applies [facility] g/dl to non-numeric (Ammir results) Wilmar Physician) BILIRUBIN, TOTAL 1.5 Above high normal [facility] N mg/dL (Ammir Wilmar Physician) ALKALINE 106 U/L Normal (applies [facility] PHOSPHATASE, ALP to non-numeric (Ammir results) Wilmar Physician) ALT (SGPT) 16 U/L Normal (applies [facility] to non-numeric (Ammir results) Wilmar Physician) AST 35 U/L Above high normal [facility] (Ammir Wilmar Physician) EGFR NON AFR 50 Below low normal [facility] SOMALI mL/min/1 (Ammir .73m2 Wilmar Physician) EGFR AFR 60 Normal (applies [facility] SOMALI mL/min/1 to non-numeric (Ammir .73m2 results) Wilmar Physician) ID Date Data Source [id number] 10/04/2019 12:00:00 AM EDT [facility] (Ammir Wilmar Physician) Name Value Range Interpretation Description Data Sup porting Code Source(s) Document(s ) WBC 7.0 Normal (applies [facility] 10(3)/uL to non-numeric (Ammir results) Wilmar Physician) RBC 5.0 Normal (applies [facility] 10(6)/uL to non-numeric (Ammir results) Wilmar Physician) Hemoglobin 14.8 g/dL Normal (applies [facility] [Mass/volume] to non-numeric (Ammir in Mixed venous results) Wilmar blood by Physician) Oximetry Hematocrit 44.4 % Normal (applies [facility] [Pure volume to non-numeric (Ammir fraction] of results) Wilmar Blood by Physician) Automated count MCV 89.2 fL Normal (applies [facility] to non-numeric (Ammir results) Wilmar Physician) MCH 30 pg Normal (applies [facility] to non-numeric (Ammir results) Wilmar Physician) MCHC 33 g/dL Normal (applies [facility] to non-numeric (Ammir results) Wilmar Physician) RDWSD 40.8 fL Normal (applies [facility] to non-numeric (Ammir results) Wilmar Physician) RDWCV 12.6 % Normal (applies [facility] to non-numeric (Ammir results) Wilmar Physician) Platelet Count 250 Normal (applies [facility] 10(3)/uL to non-numeric (Ammir results) Wilmar Physician) MPV 11.2 fL Normal (applies [facility] to non-numeric (Ammir results) Wilmar Physician) Neutrophil Abs 3.74 Normal (applies [facility] 10(3)/uL to non-numeric (Ammir results) Wilmar Physician) Lymphocyte Abs 2.32 Normal (applies [facility] 10(3)/uL to non-numeric (Ammir results) Wilmar Physician) Monocyte Abs 0.72 Normal (applies [facility] 10(3)/uL to non-numeric (Ammir results) Wilmar Physician) Eosinophil Abs 0.11 Normal (applies [facility] 10(3)/uL to non-numeric (Ammir results) Wilmar Physician) Basophil Abs 0.03 Normal (applies [facility] 10(3)/uL to non-numeric (Ammir results) Wilmar Physician) Immature 0.03 Normal (applies [facility] Granulocyte Abs 10(3)/uL to non-numeric (Ammir results) Wilmar Physician) Neutrophil % 53.80 % Normal (applies [facility] to non-numeric (Ammir results) Wilmar Physician) Lymphocyte % 33 % Normal (applies [facility] to non-numeric (Ammir results) Wilmar Physician) Monocyte % 10.4 % Normal (applies [facility] to non-numeric (Ammir results) Wilmar Physician) Eosinophil % 1.6 % Normal (applies [facility] to non-numeric (Ammir results) Wilmar Physician) Basophil % 0.4 % Normal (applies [facility] to non-numeric (Ammir results) Wilmar Physician) Immature 0.40 % Normal (applies [facility] Granulocyte % to non-numeric (Ammir results) Wilmar Physician) NRBC % 0.0 % Normal (applies [facility] to non-numeric (Ammir results) Wilmar Physician) NRBC Abs 0.00 Normal (applies [facility] 10(3)/uL to non-numeric (Ammir results) Wilmar Physician) ID Date Data Source [id number] 10/04/2019 12:00:00 AM EDT [facility] (Ammir Wilmar Physician) Name Value Range Interpretation Description Data Sup porting Code Source(s) Document(s ) GLUCOSE 70 mg/dL Normal (applies [facility] NONFASTING,SERUM to non-numeric (Ammir results) Wilmar Physician) SODIUM, SERUM 141 Normal (applies [facility] mEq/L to non-numeric (Ammir results) Wilmar Physician) POTASSIUM, SERUM 4.1 Normal (applies [facility] mEq/L to non-numeric (Ammir results) Wilmar Physician) CHLORIDE, SERUM 102 Normal (applies [facility] mEq/L to non-numeric (Ammir results) Wilmar Physician) Carbon dioxide 26 mEq/L Normal (applies [facility] [VFr/PPres] in to non-numeric (Ammir Gas delivery results) Wilmar system Physician) Anion gap in 17.1 Normal (applies [facility] Body fluid mEq/L to non-numeric (Ammir results) Wilmar Physician) BLOOD UREA 19 mg/dL Normal (applies [facility] NITROGEN to non-numeric (Ammir results) Wilmar Physician) CREATININE, 1.10 Above high normal [facility] SERUM mg/dL (Ammir Wilmar Physician) BUN/CREATININE 17.27 Normal (applies [facility] RATIO to non-numeric (Ammir results) Wilmar Physician) CALCIUM, SERUM 10.1 Normal (applies [facility] mg/dL to non-numeric (Ammir results) Wilmar Physician) TOTAL PROTEIN 7.9 g/dL Normal (applies [facility] to non-numeric (Ammir results) Wilmar Physician) Microalbumin 4.8 g/dL Normal (applies [facility] [Mass/time] in to non-numeric (Ammir Urine collected results) Wilmar for unspecified Physician) duration Globulin 3.1 gldl Normal (applies [facility] [Mass/time] in to non-numeric (Ammir 24 hour Urine results) Wilmar Physician) A/G RATIO 1.55 Normal (applies [facility] g/dl to non-numeric (Ammir results) Wilmar Physician) BILIRUBIN, TOTAL 1.5 Above high normal [facility] N mg/dL (Ammir Wilmar Physician) ALKALINE 106 U/L Normal (applies [facility] PHOSPHATASE, ALP to non-numeric (Ammir results) Wilmar Physician) ALT (SGPT) 16 U/L Normal (applies [facility] to non-numeric (Ammir results) Wilmar Physician) AST 35 U/L Above high normal [facility] (Ammir Wilmar Physician) EGFR NON AFR 50 Below low normal [facility] SOMALI mL/min/1 (Ammir .73m2 Wilmar Physician) EGFR AFR 60 Normal (applies [facility] SOMALI mL/min/1 to non-numeric (Ammir .73m2 results) Wilmar Physician) ID Date Data Source [id number] 10/04/2019 12:00:00 AM EDT [facility] (Ammir Wilmar Physician) Name Value Range Interpretation Description Data Sup porting Code Source(s) Document(s ) WBC 7.0 Normal (applies [facility] 10(3)/uL to non-numeric (Ammir results) Wilmar Physician) RBC 5.0 Normal (applies [facility] 10(6)/uL to non-numeric (Ammir results) Wilmar Physician) Hemoglobin 14.8 g/dL Normal (applies [facility] [Mass/volume] to non-numeric (Ammir in Mixed venous results) Wilmar blood by Physician) Oximetry Hematocrit 44.4 % Normal (applies [facility] [Pure volume to non-numeric (Ammir fraction] of results) Wilmar Blood by Physician) Automated count MCV 89.2 fL Normal (applies [facility] to non-numeric (Ammir results) Wilmar Physician) MCH 30 pg Normal (applies [facility] to non-numeric (Ammir results) Wilmar Physician) MCHC 33 g/dL Normal (applies [facility] to non-numeric (Ammir results) Wilmar Physician) RDWSD 40.8 fL Normal (applies [facility] to non-numeric (Ammir results) Wilmar Physician) RDWCV 12.6 % Normal (applies [facility] to non-numeric (Ammir results) Wilmar Physician) Platelet Count 250 Normal (applies [facility] 10(3)/uL to non-numeric (Ammir results) Wilmar Physician) MPV 11.2 fL Normal (applies [facility] to non-numeric (Ammir results) Wilmar Physician) Neutrophil Abs 3.74 Normal (applies [facility] 10(3)/uL to non-numeric (Ammir results) Wilmar Physician) Lymphocyte Abs 2.32 Normal (applies [facility] 10(3)/uL to non-numeric (Ammir results) Wilmar Physician) Monocyte Abs 0.72 Normal (applies [facility] 10(3)/uL to non-numeric (Ammir results) Wilmar Physician) Eosinophil Abs 0.11 Normal (applies [facility] 10(3)/uL to non-numeric (Ammir results) Wilmar Physician) Basophil Abs 0.03 Normal (applies [facility] 10(3)/uL to non-numeric (Ammir results) Wilmar Physician) Immature 0.03 Normal (applies [facility] Granulocyte Abs 10(3)/uL to non-numeric (Ammir results) Wilmar Physician) Neutrophil % 53.80 % Normal (applies [facility] to non-numeric (Ammir results) Wilmar Physician) Lymphocyte % 33 % Normal (applies [facility] to non-numeric (Ammir results) Wilmar Physician) Monocyte % 10.4 % Normal (applies [facility] to non-numeric (Ammir results) Wilmar Physician) Eosinophil % 1.6 % Normal (applies [facility] to non-numeric (Ammir results) Wilmar Physician) Basophil % 0.4 % Normal (applies [facility] to non-numeric (Ammir results) Wilmar Physician) Immature 0.40 % Normal (applies [facility] Granulocyte % to non-numeric (Ammir results) Wilmar Physician) NRBC % 0.0 % Normal (applies [facility] to non-numeric (Ammir results) Wilmar Physician) NRBC Abs 0.00 Normal (applies [facility] 10(3)/uL to non-numeric (Ammir results) Wilmar Physician) ID Date Data Source [id number] 10/04/2019 12:00:00 AM EDT [facility] (Ammir Wilmar Physician) Name Value Range Interpretation Description Data Sup porting Code Source(s) Document(s ) GLUCOSE 70 mg/dL Normal (applies [facility] NONFASTING,SERUM to non-numeric (Ammir results) Wilmar Physician) SODIUM, SERUM 141 Normal (applies [facility] mEq/L to non-numeric (Ammir results) Wilmar Physician) POTASSIUM, SERUM 4.1 Normal (applies [facility] mEq/L to non-numeric (Ammir results) Wilmar Physician) CHLORIDE, SERUM 102 Normal (applies [facility] mEq/L to non-numeric (Ammir results) Wilmar Physician) Carbon dioxide 26 mEq/L Normal (applies [facility] [VFr/PPres] in to non-numeric (Ammir Gas delivery results) Wilmar system Physician) Anion gap in 17.1 Normal (applies [facility] Body fluid mEq/L to non-numeric (Ammir results) Wilmar Physician) BLOOD UREA 19 mg/dL Normal (applies [facility] NITROGEN to non-numeric (Ammir results) Wilmar Physician) CREATININE, 1.10 Above high normal [facility] SERUM mg/dL (Ammir Wilmar Physician) BUN/CREATININE 17.27 Normal (applies [facility] RATIO to non-numeric (Ammir results) Wilmar Physician) CALCIUM, SERUM 10.1 Normal (applies [facility] mg/dL to non-numeric (Ammir results) Wilmar Physician) TOTAL PROTEIN 7.9 g/dL Normal (applies [facility] to non-numeric (Ammir results) Wilmar Physician) Microalbumin 4.8 g/dL Normal (applies [facility] [Mass/time] in to non-numeric (Ammir Urine collected results) Wilmar for unspecified Physician) duration Globulin 3.1 gldl Normal (applies [facility] [Mass/time] in to non-numeric (Ammir 24 hour Urine results) Wilmar Physician) A/G RATIO 1.55 Normal (applies [facility] g/dl to non-numeric (Ammir results) Wilmar Physician) BILIRUBIN, TOTAL 1.5 Above high normal [facility] N mg/dL (Ammir Wilmar Physician) ALKALINE 106 U/L Normal (applies [facility] PHOSPHATASE, ALP to non-numeric (Ammir results) Wilmar Physician) ALT (SGPT) 16 U/L Normal (applies [facility] to non-numeric (Ammir results) Wilmar Physician) AST 35 U/L Above high normal [facility] (Ammir Wilmar Physician) EGFR NON AFR 50 Below low normal [facility] SOMALI mL/min/1 (Ammir .73m2 Wilmar Physician) EGFR AFR 60 Normal (applies [facility] SOMALI mL/min/1 to non-numeric (Ammir .73m2 results) Wilmar Physician) ID Date Data Source [id number] 10/04/2019 12:00:00 AM EDT [facility] (Ammir Wilmar Physician) Name Value Range Interpretation Description Data Sup porting Code Source(s) Document(s ) WBC 7.0 Normal (applies [facility] 10(3)/uL to non-numeric (Ammir results) Wilmar Physician) RBC 5.0 Normal (applies [facility] 10(6)/uL to non-numeric (Ammir results) Wilmar Physician) Hemoglobin 14.8 g/dL Normal (applies [facility] [Mass/volume] to non-numeric (Ammir in Mixed venous results) Wilmar blood by Physician) Oximetry Hematocrit 44.4 % Normal (applies [facility] [Pure volume to non-numeric (Ammir fraction] of results) Wilmar Blood by Physician) Automated count MCV 89.2 fL Normal (applies [facility] to non-numeric (Ammir results) Wilmar Physician) MCH 30 pg Normal (applies [facility] to non-numeric (Ammir results) Wilmar Physician) MCHC 33 g/dL Normal (applies [facility] to non-numeric (Ammir results) Wilmar Physician) RDWSD 40.8 fL Normal (applies [facility] to non-numeric (Ammir results) Wilmar Physician) RDWCV 12.6 % Normal (applies [facility] to non-numeric (Ammir results) Wilmar Physician) Platelet Count 250 Normal (applies [facility] 10(3)/uL to non-numeric (Ammir results) Wilmar Physician) MPV 11.2 fL Normal (applies [facility] to non-numeric (Ammir results) Wilmar Physician) Neutrophil Abs 3.74 Normal (applies [facility] 10(3)/uL to non-numeric (Ammir results) Wilmar Physician) Lymphocyte Abs 2.32 Normal (applies [facility] 10(3)/uL to non-numeric (Ammir results) Wilmar Physician) Monocyte Abs 0.72 Normal (applies [facility] 10(3)/uL to non-numeric (Ammir results) Wilmar Physician) Eosinophil Abs 0.11 Normal (applies [facility] 10(3)/uL to non-numeric (Ammir results) Wilmar Physician) Basophil Abs 0.03 Normal (applies [facility] 10(3)/uL to non-numeric (Ammir results) Wilmar Physician) Immature 0.03 Normal (applies [facility] Granulocyte Abs 10(3)/uL to non-numeric (Ammir results) Wilmar Physician) Neutrophil % 53.80 % Normal (applies [facility] to non-numeric (Ammir results) Wilmar Physician) Lymphocyte % 33 % Normal (applies [facility] to non-numeric (Ammir results) Wilmar Physician) Monocyte % 10.4 % Normal (applies [facility] to non-numeric (Ammir results) Wilmar Physician) Eosinophil % 1.6 % Normal (applies [facility] to non-numeric (Ammir results) Wilmar Physician) Basophil % 0.4 % Normal (applies [facility] to non-numeric (Ammir results) Wilmar Physician) Immature 0.40 % Normal (applies [facility] Granulocyte % to non-numeric (Ammir results) Wilmar Physician) NRBC % 0.0 % Normal (applies [facility] to non-numeric (Ammir results) Wilmar Physician) NRBC Abs 0.00 Normal (applies [facility] 10(3)/uL to non-numeric (Ammir results) Wilmar Physician) ID Date Data Source [id number] 10/04/2019 12:00:00 AM EDT [facility] (Ammir Wilmar Physician) Name Value Range Interpretation Description Data Sup porting Code Source(s) Document(s ) GLUCOSE 70 mg/dL Normal (applies [facility] NONFASTING,SERUM to non-numeric (Ammir results) Wilmar Physician) SODIUM, SERUM 141 Normal (applies [facility] mEq/L to non-numeric (Ammir results) Wilmar Physician) POTASSIUM, SERUM 4.1 Normal (applies [facility] mEq/L to non-numeric (Ammir results) Wilmar Physician) CHLORIDE, SERUM 102 Normal (applies [facility] mEq/L to non-numeric (Ammir results) Wilmar Physician) Carbon dioxide 26 mEq/L Normal (applies [facility] [VFr/PPres] in to non-numeric (Ammir Gas delivery results) Wilmar system Physician) Anion gap in 17.1 Normal (applies [facility] Body fluid mEq/L to non-numeric (Ammir results) Wilmar Physician) BLOOD UREA 19 mg/dL Normal (applies [facility] NITROGEN to non-numeric (Ammir results) Wilmar Physician) CREATININE, 1.10 Above high normal [facility] SERUM mg/dL (Ammir Wilmar Physician) BUN/CREATININE 17.27 Normal (applies [facility] RATIO to non-numeric (Ammir results) Wilmar Physician) CALCIUM, SERUM 10.1 Normal (applies [facility] mg/dL to non-numeric (Ammir results) Wilmar Physician) TOTAL PROTEIN 7.9 g/dL Normal (applies [facility] to non-numeric (Ammir results) Wilmar Physician) Microalbumin 4.8 g/dL Normal (applies [facility] [Mass/time] in to non-numeric (Ammir Urine collected results) Wilmar for unspecified Physician) duration Globulin 3.1 gldl Normal (applies [facility] [Mass/time] in to non-numeric (Ammir 24 hour Urine results) Wilmar Physician) A/G RATIO 1.55 Normal (applies [facility] g/dl to non-numeric (Ammir results) Wilmar Physician) BILIRUBIN, TOTAL 1.5 Above high normal [facility] N mg/dL (Ammir Wilmar Physician) ALKALINE 106 U/L Normal (applies [facility] PHOSPHATASE, ALP to non-numeric (Ammir results) Wilmar Physician) ALT (SGPT) 16 U/L Normal (applies [facility] to non-numeric (Ammir results) Wilmar Physician) AST 35 U/L Above high normal [facility] (Ammir Wilmar Physician) EGFR NON AFR 50 Below low normal [facility] SOMALI mL/min/1 (Ammir .73m2 Wilmar Physician) EGFR AFR 60 Normal (applies [facility] SOMALI mL/min/1 to non-numeric (Ammir .73m2 results) Wilmar Physician) ID Date Data Source [id number] 09/09/2019 06:30:00 PM EDT [facility] Name Value Range Interpretation Description Data Sup porting Code Source(s) Document(s ) SARS [facility] coronavirus 2 RNA This lab was ordered by [facility] and reported by [facility]. ID Date Data Source [id number] 08/16/2019 12:00:00 AM EDT [facility] ([facility]mmir [facility] Physician) Name Value Range Interpretation Description Data Sup porting Code Source(s) Document(s ) TSH,3RD 2.23 Normal (applies to [facility] GENERATION uIU/mL non-numeric (Ammir results) [facility] Physician) T4 FREE, 1.58 Normal (applies to [facility] THYROXINE ng/dL non-numeric (Ammir results) [facility] Physician) ID Date Data Source [id number] 08/16/2019 12:00:00 AM EDT [facility] (Ammir [facility] Physician) Name Value Range Interpretation Description Data Sup porting Code Source(s) Document(s ) Ferritin 28.8 Normal (applies to [facility] (Amm ir [Interpretat ng/mL non-numeric Wil[place] ion] in results) Physician) Blood ID Date Data Source [id number] 08/16/2019 12:00:00 AM EDT [facility] (Ammir [facility] Physician) Name Value Range Interpretation Description Data Sup porting Code Source(s) Document(s ) Transferrin 382 mg/dL Normal (applies [facility] [Mass/time] in to non-numeric (Ammir 24 hour Urine results) [facility] Physician) TIBC 535.7 Above high normal [facility] ug/dL (Ammir [facility] Physician) UIBC 466.7 Above high normal [facility] ug/dL (Ammir Wil[facility] Physician) %SATURATION 12.9 % Below low normal [facility] (Ammir Wil[facility] Physician) ID Date Data Source [id number] 08/16/2019 12:00:00 AM EDT [facility] (Ammir Wil[facility] Physician) Name Value Range Interpretation Description Data Sup porting Code Source(s) Document(s ) FOLATE SERUM 10.2 Normal (applies to [facility] ( Ammir ng/mL non-numeric [facility] results) Physician) VITAMIN B12 945 pg/mL Above high normal [facility] (Am maria guadalupe [facility] Physician) ID Date Data Source [id number] 08/16/2019 12:00:00 AM EDT [facility] (Ammir [facility] Physician) Name Value Range Interpretation Description Data Sup porting Code Source(s) Document(s ) VITAMIN D 28.23 Below low normal [facility] (Ammir 25-HYDROXY ng/mL [facility] Physician) ID Date Data Source [id number] 08/16/2019 12:00:00 AM EDT [facility] (Ammir Wilmar Physician) Name Value Range Interpretation Description Data Sup porting Code Source(s) Document(s ) Cholesterol 184 Normal (applies [facility] [Moles/volume] mg/dL to non-numeric (Ammir in Pericardial results) [facility] fluid Physician) LDL CALCULATION 95.8 Normal (applies [facility] mg/dL to non-numeric (Ammir results) [facility] Physician) CHOL/HDL RATIO 2.63 Normal (applies [facility] ratio to non-numeric (Ammir results) [facility] Physician) HDL CHOLESTEROL 70 mg/dL Normal (applies [facility] to non-numeric (Ammir results) [facility] Physician) VLDL CALCULATION 18.2 Normal (applies [facility] mg/dl to non-numeric (Ammir results) [facility] Physician) TRIGLYCERIDES 91 mg/dL Normal (applies [facility] to non-numeric (Ammir results) [facility] Physician) ID Date Data Source [id number] 08/16/2019 12:00:00 AM EDT [facility] (Ammir Wil[facility] Physician) Name Value Range Interpretation Code Description Data Ning rce(s) Supporting Document(s ) IRON, 69 ug/dL Normal (applies to [facility] (Amm ir TOTAL non-numeric [facility] results) Physician) ID Date Data Source [id number] 08/16/2019 12:00:00 AM EDT [facility] (Ammir Wil[facility] Physician) Name Value Range Interpretation Description Data Sup porting Code Source(s) Document(s ) WBC 6.1 Normal (applies [facility] 10(3)/uL to non-numeric (Ammir results) [facility] Physician) RBC 4.6 Normal (applies [facility] 10(6)/uL to non-numeric (Ammir results) [facility] Physician) Hemoglobin 13.9 g/dL Normal (applies [facility] [Mass/volume] to non-numeric (Ammir in Mixed venous results) [facility] blood by Physician) Oximetry Hematocrit 42.2 % Normal (applies [facility] [Pure volume to non-numeric (Ammir fraction] of results) [facility] Blood by Physician) Automated count MCV 92.1 fL Normal (applies [facility] to non-numeric (Ammir results) [facility] Physician) MCH 30 pg Normal (applies [facility] to non-numeric (Ammir results) [facility] Physician) MCHC 33 g/dL Normal (applies [facility] to non-numeric (Ammir results) [facility] Physician) RDWSD 44.8 fL Normal (applies [facility] to non-numeric (Ammir results) [facility] Physician) RDWCV 13.3 % Normal (applies [facility] to non-numeric (Ammir results) [facility] Physician) Platelet Count 221 Normal (applies [facility] 10(3)/uL to non-numeric (Ammir results) [facility] Physician) MPV 11.3 fL Normal (applies [facility] to non-numeric (Ammir results) [facility] Physician) Neutrophil Abs 3.16 Normal (applies [facility] 10(3)/uL to non-numeric (Ammir results) [facility] Physician) Lymphocyte Abs 2.30 Normal (applies [facility] 10(3)/uL to non-numeric (Ammir results) [facility] Physician) Monocyte Abs 0.58 Normal (applies [facility] 10(3)/uL to non-numeric (Ammir results) [facility] Physician) Eosinophil Abs 0.05 Normal (applies [facility] 10(3)/uL to non-numeric (Ammir results) [facility] Physician) Basophil Abs 0.02 Normal (applies [facility] 10(3)/uL to non-numeric (Ammir results) [facility] Physician) Immature 0.01 Normal (applies [facility] Granulocyte Abs 10(3)/uL to non-numeric (Ammir results) [facility] Physician) Neutrophil % 51.60 % Normal (applies [facility] to non-numeric (Ammir results) [facility] Physician) Lymphocyte % 38 % Normal (applies [facility] to non-numeric (Ammir results) [facility] Physician) Monocyte % 9.5 % Normal (applies [facility] to non-numeric (Ammir results) [facility] Physician) Eosinophil % 0.8 % Normal (applies [facility] to non-numeric (Ammir results) [facility] Physician) Basophil % 0.3 % Normal (applies [facility] to non-numeric (Ammir results) [facility] Physician) Immature 0.20 % Normal (applies [facility] Granulocyte % to non-numeric (Ammir results) [facility] Physician) NRBC % 0.0 % Normal (applies [facility] to non-numeric (Ammir results) [facility] Physician) NRBC Abs 0.00 Normal (applies [facility] 10(3)/uL to non-numeric (Ammir results) [facility] Physician) ID Date Data Source [id number] 08/16/2019 12:00:00 AM EDT [facility] (Ammir Wilmar Physician) Name Value Range Interpretation Description Data Sup porting Code Source(s) Document(s ) GLUCOSE 66 mg/dL Normal (applies [facility] NONFASTING,SERUM to non-numeric (Ammir results) [facility] Physician) SODIUM, SERUM 141 Normal (applies [facility] mEq/L to non-numeric (Ammir results) [facility] Physician) POTASSIUM, SERUM 4.5 Normal (applies [facility] mEq/L to non-numeric (Ammir results) [facility] Physician) CHLORIDE, SERUM 104 Normal (applies [facility] mEq/L to non-numeric (Ammir results) [facility] Physician) Carbon dioxide 25 mEq/L Normal (applies [facility] [VFr/PPres] in to non-numeric (Ammir Gas delivery results) [facility] system Physician) Anion gap in 16.5 Normal (applies [facility] Body fluid mEq/L to non-numeric (Ammir results) [facility] Physician) BLOOD UREA 13 mg/dL Normal (applies [facility] NITROGEN to non-numeric (Ammir results) [facility] Physician) CREATININE, 0.90 Above high normal [facility] SERUM mg/dL (Ammir Wil[facility] Physician) BUN/CREATININE 14.44 Normal (applies [facility] RATIO to non-numeric (Ammir results) [facility] Physician) CALCIUM, SERUM 9.9 Normal (applies [facility] mg/dL to non-numeric (Ammir results) [facility] Physician) TOTAL PROTEIN 7.3 g/dL Normal (applies [facility] to non-numeric (Ammir results) [facility] Physician) Microalbumin 4.4 g/dL Normal (applies [facility] [Mass/time] in to non-numeric (Ammir Urine collected results) [facility]mar for unspecified Physician) duration Globulin 2.9 gldl Normal (applies [facility] [Mass/time] in to non-numeric (Ammir 24 hour Urine results) [facility] Physician) A/G RATIO 1.52 Normal (applies [facility] g/dl to non-numeric (Ammir results) [facility] Physician) BILIRUBIN, TOTAL 2.0 Above high normal [facility] N mg/dL (Ammir [facility] Physician) ALKALINE 107 U/L Normal (applies [facility] PHOSPHATASE, ALP to non-numeric (Ammir results) [facility] Physician) ALT (SGPT) 11 U/L Normal (applies [facility] to non-numeric (Ammir results) Wil[facility]r Physician) AST 27 U/L Normal (applies [facility] to non-numeric (Ammir results) [facility] Physician) EGFR NON AFR 63 Normal (applies [facility] SOMALI mL/min/1 to non-numeric (Ammir .73m2 results) [facility] Physician) EGFR AFR 76 Normal (applies [facility] SOMALI mL/min/1 to non-numeric (Ammir .73m2 results) [facility] Physician) ID Date Data Source [id number] 08/16/2019 12:00:00 AM EDT [facility] (Ammir [facility] Physician) Name Value Range Interpretation Description Data Sup porting Code Source(s) Document(s ) TSH,3RD 2.23 Normal (applies to [facility] GENERATION uIU/mL non-numeric (Ammir results) [facility] Physician) T4 FREE, 1.58 Normal (applies to [facility] THYROXINE ng/dL non-numeric (Ammir results) [facility] Physician) ID Date Data Source [id number] 08/16/2019 12:00:00 AM EDT [facility] (Ammir [facility] Physician) Name Value Range Interpretation Description Data Sup porting Code Source(s) Document(s ) Ferritin 28.8 Normal (applies to [facility] (Amm ir [Interpretat ng/mL non-numeric [facility] ion] in results) Physician) Blood ID Date Data Source [id number] 08/16/2019 12:00:00 AM EDT [facility] (Ammir [facility] Physician) Name Value Range Interpretation Description Data Sup porting Code Source(s) Document(s ) Transferrin 382 mg/dL Normal (applies [facility] [Mass/time] in to non-numeric (Ammir 24 hour Urine results) [facility] Physician) TIBC 535.7 Above high normal [facility] ug/dL (Ammir Wil[facility] Physician) UIBC 466.7 Above high normal [facility] ug/dL (Ammir Wilmar Physician) %SATURATION 12.9 % Below low normal [facility] (Ammir Wilmar Physician) ID Date Data Source [id number] 08/16/2019 12:00:00 AM EDT [facility] (Ammir [facility] Physician) Name Value Range Interpretation Description Data Sup porting Code Source(s) Document(s ) FOLATE SERUM 10.2 Normal (applies to [facility] ( Ammir ng/mL non-numeric [facility] results) Physician) VITAMIN B12 945 pg/mL Above high normal [facility] (Am maria guadalupe [facility] Physician) ID Date Data Source [id number] 08/16/2019 12:00:00 AM EDT [facility] (Ammir [facility] Physician) Name Value Range Interpretation Description Data Sup porting Code Source(s) Document(s ) VITAMIN D 28.23 Below low normal [facility] (Ammir 25-HYDROXY ng/mL [facility] Physician) ID Date Data Source [id number] 08/16/2019 12:00:00 AM EDT [facility] (Ammir [facility] Physician) Name Value Range Interpretation Description Data Sup porting Code Source(s) Document(s ) Cholesterol 184 Normal (applies [facility] [Moles/volume] mg/dL to non-numeric (Ammir in Pericardial results) [facility] fluid Physician) LDL CALCULATION 95.8 Normal (applies [facility] mg/dL to non-numeric (Ammir results) [facility] Physician) CHOL/HDL RATIO 2.63 Normal (applies [facility] ratio to non-numeric (Ammir results) [facility] Physician) HDL CHOLESTEROL 70 mg/dL Normal (applies [facility] to non-numeric (Ammir results) [facility] Physician) VLDL CALCULATION 18.2 Normal (applies [facility] mg/dl to non-numeric (Ammir results) [facility] Physician) TRIGLYCERIDES 91 mg/dL Normal (applies [facility] to non-numeric (Ammir results) [facility] Physician) ID Date Data Source [id number] 08/16/2019 12:00:00 AM EDT [facility] (Ammir [facility] Physician) Name Value Range Interpretation Code Description Data Ning rce(s) Supporting Document(s ) IRON, 69 ug/dL Normal (applies to [facility] (Amm ir TOTAL non-numeric [facility] results) Physician) ID Date Data Source [id number] 08/16/2019 12:00:00 AM EDT [facility] (Ammir [facility] Physician) Name Value Range Interpretation Description Data Sup porting Code Source(s) Document(s ) WBC 6.1 Normal (applies [facility] 10(3)/uL to non-numeric (Ammir results) [facility] Physician) RBC 4.6 Normal (applies [facility] 10(6)/uL to non-numeric (Ammir results) [facility] Physician) Hemoglobin 13.9 g/dL Normal (applies [facility] [Mass/volume] to non-numeric (Ammir in Mixed venous results) [facility] blood by Physician) Oximetry Hematocrit 42.2 % Normal (applies [facility] [Pure volume to non-numeric (Ammir fraction] of results) [facility] Blood by Physician) Automated count MCV 92.1 fL Normal (applies [facility] to non-numeric (Ammir results) [facility] Physician) MCH 30 pg Normal (applies [facility] to non-numeric (Ammir results) [facility] Physician) MCHC 33 g/dL Normal (applies [facility] to non-numeric (Ammir results) [facility] Physician) RDWSD 44.8 fL Normal (applies [facility] to non-numeric (Ammir results) [facility] Physician) RDWCV 13.3 % Normal (applies [facility] to non-numeric (Ammir results) [facility] Physician) Platelet Count 221 Normal (applies [facility] 10(3)/uL to non-numeric (Ammir results) [facility] Physician) MPV 11.3 fL Normal (applies [facility] to non-numeric (Ammir results) [facility] Physician) Neutrophil Abs 3.16 Normal (applies [facility] 10(3)/uL to non-numeric (Ammir results) [facility] Physician) Lymphocyte Abs 2.30 Normal (applies [facility] 10(3)/uL to non-numeric (Ammir results) [facility] Physician) Monocyte Abs 0.58 Normal (applies [facility] 10(3)/uL to non-numeric (Ammir results) [facility] Physician) Eosinophil Abs 0.05 Normal (applies [facility] 10(3)/uL to non-numeric (Ammir results) [facility] Physician) Basophil Abs 0.02 Normal (applies [facility] 10(3)/uL to non-numeric (Ammir results) [facility] Physician) Immature 0.01 Normal (applies [facility] Granulocyte Abs 10(3)/uL to non-numeric (Ammir results) [facility] Physician) Neutrophil % 51.60 % Normal (applies [facility] to non-numeric (Ammir results) [facility] Physician) Lymphocyte % 38 % Normal (applies [facility] to non-numeric (Ammir results) [facility] Physician) Monocyte % 9.5 % Normal (applies [facility] to non-numeric (Ammir results) [facility] Physician) Eosinophil % 0.8 % Normal (applies [facility] to non-numeric (Ammir results) [facility] Physician) Basophil % 0.3 % Normal (applies [facility] to non-numeric (Ammir results) [facility] Physician) Immature 0.20 % Normal (applies [facility] Granulocyte % to non-numeric (Ammir results) [facility] Physician) NRBC % 0.0 % Normal (applies [facility] to non-numeric (Ammir results) [facility] Physician) NRBC Abs 0.00 Normal (applies [facility] 10(3)/uL to non-numeric (Ammir results) [facility] Physician) ID Date Data Source [id number] 08/16/2019 12:00:00 AM EDT [facility] (Ammir [facility] Physician) Name Value Range Interpretation Description Data Sup porting Code Source(s) Document(s ) GLUCOSE 66 mg/dL Normal (applies [facility] NONFASTING,SERUM to non-numeric (Ammir results) [facility] Physician) SODIUM, SERUM 141 Normal (applies [facility] mEq/L to non-numeric (Ammir results) [facility] Physician) POTASSIUM, SERUM 4.5 Normal (applies [facility] mEq/L to non-numeric (Ammir results) [facility] Physician) CHLORIDE, SERUM 104 Normal (applies [facility] mEq/L to non-numeric (Ammir results) [facility] Physician) Carbon dioxide 25 mEq/L Normal (applies [facility] [VFr/PPres] in to non-numeric (Ammir Gas delivery results) [facility] system Physician) Anion gap in 16.5 Normal (applies [facility] Body fluid mEq/L to non-numeric (Ammir results) [facility] Physician) BLOOD UREA 13 mg/dL Normal (applies [facility] NITROGEN to non-numeric (Ammir results) [facility] Physician) CREATININE, 0.90 Above high normal [facility] SERUM mg/dL (Ammir Wil[facility] Physician) BUN/CREATININE 14.44 Normal (applies [facility] RATIO to non-numeric (Ammir results) [facility] Physician) CALCIUM, SERUM 9.9 Normal (applies [facility] mg/dL to non-numeric (Ammir results) [facility] Physician) TOTAL PROTEIN 7.3 g/dL Normal (applies [facility] to non-numeric (Ammir results) [facility] Physician) Microalbumin 4.4 g/dL Normal (applies [facility] [Mass/time] in to non-numeric (Ammir Urine collected results) [facility] for unspecified Physician) duration Globulin 2.9 gldl Normal (applies [facility] [Mass/time] in to non-numeric (Ammir 24 hour Urine results) [facility] Physician) A/G RATIO 1.52 Normal (applies [facility] g/dl to non-numeric (Ammir results) [facility] Physician) BILIRUBIN, TOTAL 2.0 Above high normal [facility] N mg/dL (Ammir [facility] Physician) ALKALINE 107 U/L Normal (applies [facility] PHOSPHATASE, ALP to non-numeric (Ammir results) [facility] Physician) ALT (SGPT) 11 U/L Normal (applies [facility] to non-numeric (Ammir results) [facility] Physician) AST 27 U/L Normal (applies [facility] to non-numeric (Ammir results) [facility] Physician) EGFR NON AFR 63 Normal (applies [facility] SOMALI mL/min/1 to non-numeric (Ammir .73m2 results) [facility] Physician) EGFR AFR 76 Normal (applies [facility] SOMALI mL/min/1 to non-numeric (Ammir .73m2 results) [facility] Physician) ID Date Data Source [id number] 08/16/2019 12:00:00 AM EDT [facility] (Ammir [facility] Physician) Name Value Range Interpretation Description Data Sup porting Code Source(s) Document(s ) TSH,3RD 2.23 Normal (applies to [facility] GENERATION uIU/mL non-numeric (Ammir results) [facility] Physician) T4 FREE, 1.58 Normal (applies to [facility] THYROXINE ng/dL non-numeric (Ammir results) [facility] Physician) ID Date Data Source [id number] 08/16/2019 12:00:00 AM EDT [facility] (Ammir [facility] Physician) Name Value Range Interpretation Description Data Sup porting Code Source(s) Document(s ) Ferritin 28.8 Normal (applies to [facility] (Amm ir [Interpretat ng/mL non-numeric [facility] ion] in results) Physician) Blood ID Date Data Source [id number] 08/16/2019 12:00:00 AM EDT [facility] (Ammir [facility] Physician) Name Value Range Interpretation Description Data Sup porting Code Source(s) Document(s ) Transferrin 382 mg/dL Normal (applies [facility] [Mass/time] in to non-numeric (Ammir 24 hour Urine results) [facility] Physician) TIBC 535.7 Above high normal [facility] ug/dL (Ammir Wil[facility] Physician) UIBC 466.7 Above high normal [facility] ug/dL (Ammir Wilmar Physician) %SATURATION 12.9 % Below low normal [facility] (Ammir Wilmar Physician) ID Date Data Source [id number] 08/16/2019 12:00:00 AM EDT [facility] (Ammir Wil[facility] Physician) Name Value Range Interpretation Description Data Sup porting Code Source(s) Document(s ) FOLATE SERUM 10.2 Normal (applies to [facility] ( Ammir ng/mL non-numeric [facility] results) Physician) VITAMIN B12 945 pg/mL Above high normal [facility] (Am maria guadalupe [facility] Physician) ID Date Data Source [id number] 08/16/2019 12:00:00 AM EDT [facility] (Ammir [facility] Physician) Name Value Range Interpretation Description Data Sup porting Code Source(s) Document(s ) VITAMIN D 28.23 Below low normal [facility] (Ammir 25-HYDROXY ng/mL [facility] Physician) ID Date Data Source [id number] 08/16/2019 12:00:00 AM EDT [facility] (Ammir [facility] Physician) Name Value Range Interpretation Description Data Sup porting Code Source(s) Document(s ) Cholesterol 184 Normal (applies [facility] [Moles/volume] mg/dL to non-numeric (Ammir in Pericardial results) [facility] fluid Physician) LDL CALCULATION 95.8 Normal (applies [facility] mg/dL to non-numeric (Ammir results) [facility] Physician) CHOL/HDL RATIO 2.63 Normal (applies [facility] ratio to non-numeric (Ammir results) [facility] Physician) HDL CHOLESTEROL 70 mg/dL Normal (applies [facility] to non-numeric (Ammir results) [facility] Physician) VLDL CALCULATION 18.2 Normal (applies [facility] mg/dl to non-numeric (Ammir results) [facility] Physician) TRIGLYCERIDES 91 mg/dL Normal (applies [facility] to non-numeric (Ammir results) [facility] Physician) ID Date Data Source [id number] 08/16/2019 12:00:00 AM EDT [facility] (Ammir Wilmar Physician) Name Value Range Interpretation Code Description Data Ning rce(s) Supporting Document(s ) IRON, 69 ug/dL Normal (applies to [facility] (Amm ir TOTAL non-numeric [facility] results) Physician) ID Date Data Source [id number] 08/16/2019 12:00:00 AM EDT [facility] (Ammir [facility] Physician) Name Value Range Interpretation Description Data Sup porting Code Source(s) Document(s ) WBC 6.1 Normal (applies [facility] 10(3)/uL to non-numeric (Ammir results) [facility] Physician) RBC 4.6 Normal (applies [facility] 10(6)/uL to non-numeric (Ammir results) [facility] Physician) Hemoglobin 13.9 g/dL Normal (applies [facility] [Mass/volume] to non-numeric (Ammir in Mixed venous results) [facility] blood by Physician) Oximetry Hematocrit 42.2 % Normal (applies [facility] [Pure volume to non-numeric (Ammir fraction] of results) [facility] Blood by Physician) Automated count MCV 92.1 fL Normal (applies [facility] to non-numeric (Ammir results) [facility] Physician) MCH 30 pg Normal (applies [facility] to non-numeric (Ammir results) [facility] Physician) MCHC 33 g/dL Normal (applies [facility] to non-numeric (Ammir results) [facility] Physician) RDWSD 44.8 fL Normal (applies [facility] to non-numeric (Ammir results) [facility] Physician) RDWCV 13.3 % Normal (applies [facility] to non-numeric (Ammir results) [facility] Physician) Platelet Count 221 Normal (applies [facility] 10(3)/uL to non-numeric (Ammir results) [facility] Physician) MPV 11.3 fL Normal (applies [facility] to non-numeric (Ammir results) [facility] Physician) Neutrophil Abs 3.16 Normal (applies [facility] 10(3)/uL to non-numeric (Ammir results) [facility] Physician) Lymphocyte Abs 2.30 Normal (applies [facility] 10(3)/uL to non-numeric (Ammir results) [facility] Physician) Monocyte Abs 0.58 Normal (applies [facility] 10(3)/uL to non-numeric (Ammir results) [facility] Physician) Eosinophil Abs 0.05 Normal (applies [facility] 10(3)/uL to non-numeric (Ammir results) [facility] Physician) Basophil Abs 0.02 Normal (applies [facility] 10(3)/uL to non-numeric (Ammir results) [facility] Physician) Immature 0.01 Normal (applies [facility] Granulocyte Abs 10(3)/uL to non-numeric (Ammir results) [facility] Physician) Neutrophil % 51.60 % Normal (applies [facility] to non-numeric (Ammir results) [facility] Physician) Lymphocyte % 38 % Normal (applies [facility] to non-numeric (Ammir results) [facility] Physician) Monocyte % 9.5 % Normal (applies [facility] to non-numeric (Ammir results) [facility] Physician) Eosinophil % 0.8 % Normal (applies [facility] to non-numeric (Ammir results) [facility] Physician) Basophil % 0.3 % Normal (applies [facility] to non-numeric (Ammir results) [facility] Physician) Immature 0.20 % Normal (applies [facility] Granulocyte % to non-numeric (Ammir results) [facility] Physician) NRBC % 0.0 % Normal (applies [facility] to non-numeric (Ammir results) [facility] Physician) NRBC Abs 0.00 Normal (applies [facility] 10(3)/uL to non-numeric (Ammir results) [facility] Physician) ID Date Data Source [id number] 08/16/2019 12:00:00 AM EDT [facility] (Ammir [facility] Physician) Name Value Range Interpretation Description Data Sup porting Code Source(s) Document(s ) GLUCOSE 66 mg/dL Normal (applies [facility] NONFASTING,SERUM to non-numeric (Ammir results) [facility] Physician) SODIUM, SERUM 141 Normal (applies [facility] mEq/L to non-numeric (Ammir results) [facility] Physician) POTASSIUM, SERUM 4.5 Normal (applies [facility] mEq/L to non-numeric (Ammir results) [facility] Physician) CHLORIDE, SERUM 104 Normal (applies [facility] mEq/L to non-numeric (Ammir results) [facility] Physician) Carbon dioxide 25 mEq/L Normal (applies [facility] [VFr/PPres] in to non-numeric (Ammir Gas delivery results) [facility] system Physician) Anion gap in 16.5 Normal (applies [facility] Body fluid mEq/L to non-numeric (Ammir results) [facility] Physician) BLOOD UREA 13 mg/dL Normal (applies [facility] NITROGEN to non-numeric (Ammir results) [facility] Physician) CREATININE, 0.90 Above high normal [facility] SERUM mg/dL (Ammir [facility] Physician) BUN/CREATININE 14.44 Normal (applies [facility] RATIO to non-numeric (Ammir results) [facility] Physician) CALCIUM, SERUM 9.9 Normal (applies [facility] mg/dL to non-numeric (Ammir results) [facility] Physician) TOTAL PROTEIN 7.3 g/dL Normal (applies [facility] to non-numeric (Ammir results) [facility] Physician) Microalbumin 4.4 g/dL Normal (applies [facility] [Mass/time] in to non-numeric (Ammir Urine collected results) [facility] for unspecified Physician) duration Globulin 2.9 gldl Normal (applies [facility] [Mass/time] in to non-numeric (Ammir 24 hour Urine results) [facility] Physician) A/G RATIO 1.52 Normal (applies [facility] g/dl to non-numeric (Ammir results) [facility] Physician) BILIRUBIN, TOTAL 2.0 Above high normal [facility] N mg/dL (Ammir [facility] Physician) ALKALINE 107 U/L Normal (applies [facility] PHOSPHATASE, ALP to non-numeric (Ammir results) [facility] Physician) ALT (SGPT) 11 U/L Normal (applies [facility] to non-numeric (Ammir results) [facility] Physician) AST 27 U/L Normal (applies [facility] to non-numeric (Ammir results) [facility] Physician) EGFR NON AFR 63 Normal (applies [facility] SOMALI mL/min/1 to non-numeric (Ammir .73m2 results) [facility] Physician) EGFR AFR 76 Normal (applies [facility] SOMALI mL/min/1 to non-numeric (Ammir .73m2 results) [facility] Physician) ID Date Data Source [id number] 08/16/2019 12:00:00 AM EDT [facility] (Ammir [facility] Physician) Name Value Range Interpretation Description Data Sup porting Code Source(s) Document(s ) TSH,3RD 2.23 Normal (applies to [facility] GENERATION uIU/mL non-numeric (Ammir results) [facility] Physician) T4 FREE, 1.58 Normal (applies to [facility] THYROXINE ng/dL non-numeric (Ammir results) [facility] Physician) ID Date Data Source [id number] 08/16/2019 12:00:00 AM EDT [facility] (Ammir [facility] Physician) Name Value Range Interpretation Description Data Sup porting Code Source(s) Document(s ) Ferritin 28.8 Normal (applies to [facility] (Amm ir [Interpretat ng/mL non-numeric [place] ion] in results) Physician) Blood ID Date Data Source [id number] 08/16/2019 12:00:00 AM EDT [facility] (Ammir Wilmar Physician) Name Value Range Interpretation Description Data Sup porting Code Source(s) Document(s ) Transferrin 382 mg/dL Normal (applies [facility] [Mass/time] in to non-numeric (Ammir 24 hour Urine results) [facility] Physician) TIBC 535.7 Above high normal [facility] ug/dL (Ammir [facility] Physician) UIBC 466.7 Above high normal [facility] ug/dL (Ammir [facility] Physician) %SATURATION 12.9 % Below low normal [facility] (Ammir [facility] Physician) ID Date Data Source [id number] 08/16/2019 12:00:00 AM EDT [facility] (Ammir [facility] Physician) Name Value Range Interpretation Description Data Sup porting Code Source(s) Document(s ) FOLATE SERUM 10.2 Normal (applies to [facility] ( Ammir ng/mL non-numeric [facility] results) Physician) VITAMIN B12 945 pg/mL Above high normal [facility] (Am maria guadalupe [facility] Physician) ID Date Data Source [id number] 08/16/2019 12:00:00 AM EDT [facility] (Ammir [facility] Physician) Name Value Range Interpretation Description Data Sup porting Code Source(s) Document(s ) VITAMIN D 28.23 Below low normal [facility] (Ammir 25-HYDROXY ng/mL [facility] Physician) ID Date Data Source [id number] 08/16/2019 12:00:00 AM EDT [facility] (Ammir [facility] Physician) Name Value Range Interpretation Description Data Sup porting Code Source(s) Document(s ) Cholesterol 184 Normal (applies [facility] [Moles/volume] mg/dL to non-numeric (Ammir in Pericardial results) [facility] fluid Physician) LDL CALCULATION 95.8 Normal (applies [facility] mg/dL to non-numeric (Ammir results) [facility] Physician) CHOL/HDL RATIO 2.63 Normal (applies [facility] ratio to non-numeric (Ammir results) [facility] Physician) HDL CHOLESTEROL 70 mg/dL Normal (applies [facility] to non-numeric (Ammir results) [facility] Physician) VLDL CALCULATION 18.2 Normal (applies [facility] mg/dl to non-numeric (Ammir results) [facility] Physician) TRIGLYCERIDES 91 mg/dL Normal (applies [facility] to non-numeric (Ammir results) [facility] Physician) ID Date Data Source [id number] 08/16/2019 12:00:00 AM EDT [facility] (Ammir [facility] Physician) Name Value Range Interpretation Code Description Data Ning rce(s) Supporting Document(s ) IRON, 69 ug/dL Normal (applies to [facility] (Amm ir TOTAL non-numeric [facility] results) Physician) ID Date Data Source [id number] 08/16/2019 12:00:00 AM EDT [facility] (Ammir [facility] Physician) Name Value Range Interpretation Description Data Sup porting Code Source(s) Document(s ) WBC 6.1 Normal (applies [facility] 10(3)/uL to non-numeric (Ammir results) [facility] Physician) RBC 4.6 Normal (applies [facility] 10(6)/uL to non-numeric (Ammir results) [facility] Physician) Hemoglobin 13.9 g/dL Normal (applies [facility] [Mass/volume] to non-numeric (Ammir in Mixed venous results) [facility] blood by Physician) Oximetry Hematocrit 42.2 % Normal (applies [facility] [Pure volume to non-numeric (Ammir fraction] of results) [facility] Blood by Physician) Automated count MCV 92.1 fL Normal (applies [facility] to non-numeric (Ammir results) [facility] Physician) MCH 30 pg Normal (applies [facility] to non-numeric (Ammir results) [facility] Physician) MCHC 33 g/dL Normal (applies [facility] to non-numeric (Ammir results) [facility] Physician) RDWSD 44.8 fL Normal (applies [facility] to non-numeric (Ammir results) [facility] Physician) RDWCV 13.3 % Normal (applies [facility] to non-numeric (Ammir results) [facility] Physician) Platelet Count 221 Normal (applies [facility] 10(3)/uL to non-numeric (Ammir results) [facility] Physician) MPV 11.3 fL Normal (applies [facility] to non-numeric (Ammir results) [facility] Physician) Neutrophil Abs 3.16 Normal (applies [facility] 10(3)/uL to non-numeric (Ammir results) [facility] Physician) Lymphocyte Abs 2.30 Normal (applies [facility] 10(3)/uL to non-numeric (Ammir results) [facility] Physician) Monocyte Abs 0.58 Normal (applies [facility] 10(3)/uL to non-numeric (Ammir results) [facility] Physician) Eosinophil Abs 0.05 Normal (applies [facility] 10(3)/uL to non-numeric (Ammir results) [facility] Physician) Basophil Abs 0.02 Normal (applies [facility] 10(3)/uL to non-numeric (Ammir results) [facility] Physician) Immature 0.01 Normal (applies [facility] Granulocyte Abs 10(3)/uL to non-numeric (Ammir results) [facility] Physician) Neutrophil % 51.60 % Normal (applies [facility] to non-numeric (Ammir results) [facility] Physician) Lymphocyte % 38 % Normal (applies [facility] to non-numeric (Ammir results) [facility] Physician) Monocyte % 9.5 % Normal (applies [facility] to non-numeric (Ammir results) [facility] Physician) Eosinophil % 0.8 % Normal (applies [facility] to non-numeric (Ammir results) [facility] Physician) Basophil % 0.3 % Normal (applies [facility] to non-numeric (Ammir results) [facility] Physician) Immature 0.20 % Normal (applies [facility] Granulocyte % to non-numeric (Ammir results) [facility] Physician) NRBC % 0.0 % Normal (applies [facility] to non-numeric (Ammir results) [facility] Physician) NRBC Abs 0.00 Normal (applies [facility] 10(3)/uL to non-numeric (Ammir results) [facility] Physician) ID Date Data Source [id number] 08/16/2019 12:00:00 AM EDT [facility] (Ammir [facility] Physician) Name Value Range Interpretation Description Data Sup porting Code Source(s) Document(s ) GLUCOSE 66 mg/dL Normal (applies [facility] NONFASTING,SERUM to non-numeric (Ammir results) [facility] Physician) SODIUM, SERUM 141 Normal (applies [facility] mEq/L to non-numeric (Ammir results) [facility] Physician) POTASSIUM, SERUM 4.5 Normal (applies [facility] mEq/L to non-numeric (Ammir results) [facility] Physician) CHLORIDE, SERUM 104 Normal (applies [facility] mEq/L to non-numeric (Ammir results) [facility] Physician) Carbon dioxide 25 mEq/L Normal (applies [facility] [VFr/PPres] in to non-numeric (Ammir Gas delivery results) [facility] system Physician) Anion gap in 16.5 Normal (applies [facility] Body fluid mEq/L to non-numeric (Ammir results) [facility] Physician) BLOOD UREA 13 mg/dL Normal (applies [facility] NITROGEN to non-numeric (Ammir results) [facility] Physician) CREATININE, 0.90 Above high normal [facility] SERUM mg/dL (Ammir [facility] Physician) BUN/CREATININE 14.44 Normal (applies [facility] RATIO to non-numeric (Ammir results) [facility] Physician) CALCIUM, SERUM 9.9 Normal (applies [facility] mg/dL to non-numeric (Ammir results) [facility] Physician) TOTAL PROTEIN 7.3 g/dL Normal (applies [facility] to non-numeric (Ammir results) [facility] Physician) Microalbumin 4.4 g/dL Normal (applies [facility] [Mass/time] in to non-numeric (Ammir Urine collected results) [facility] for unspecified Physician) duration Globulin 2.9 gldl Normal (applies [facility] [Mass/time] in to non-numeric (Ammir 24 hour Urine results) [facility] Physician) A/G RATIO 1.52 Normal (applies [facility] g/dl to non-numeric (Ammir results) [facility] Physician) BILIRUBIN, TOTAL 2.0 Above high normal [facility] N mg/dL (Ammir [facility] Physician) ALKALINE 107 U/L Normal (applies [facility] PHOSPHATASE, ALP to non-numeric (Ammir results) [facility] Physician) ALT (SGPT) 11 U/L Normal (applies [facility] to non-numeric (Ammir results) [facility] Physician) AST 27 U/L Normal (applies [facility] to non-numeric (Ammir results) [facility] Physician) EGFR NON AFR 63 Normal (applies [facility] SOMALI mL/min/1 to non-numeric (Ammir .73m2 results) [facility] Physician) EGFR AFR 76 Normal (applies [facility] SOMALI mL/min/1 to non-numeric (Ammir .73m2 results) [facility] Physician) ID Date Data Source [id number] 04/26/2019 12:00:00 AM EST [facility] (Ammir [facility] Physician) Name Value Range Interpretation Description Data Sup porting Code Source(s) Document(s ) Adenovirus Not Normal (applies [facility] [Presence] in Detected to non-numeric (Ammir Unspecified results) [place] specimen by Physician) Organism specific culture CORONAVIRUS 229E Not Normal (applies [facility] Detected to non-numeric (Ammir results) [facility] Physician) CORONAVIRUS HKU1 Not Normal (applies [facility] Detected to non-numeric (Ammir results) [facility] Physician) CORONAVIRUS NL63 Not Normal (applies [facility] Detected to non-numeric (Ammir results) [facility] Physician) CORONAVIRUS OC43 Not Normal (applies [facility] Detected to non-numeric (Ammir results) [facility] Physician) HUMAN Not Normal (applies [facility] METAPNEUMOVIRUS Detected to non-numeric (Ammir results) [facility] Physician) HUMAN Not Normal (applies [facility] RHINOVIRUS/ENTERO Detected to non-numeric (Ammir VIRUS results) [facility] Physician) INFLUENZA A/H1 Not Normal (applies [facility] Detected to non-numeric (Ammir results) [facility] Physician) INFLUENZA A/H3 Not Normal (applies [facility] Detected to non-numeric (Ammir results) [facility] Physician) INFLUENZA Not Normal (applies [facility] A/H1-2009 Detected to non-numeric (Ammir results) [facility] Physician) INFLUENZA B Not Normal (applies [facility] Detected to non-numeric (Ammir results) [facility] Physician) Parainfluenza Not Normal (applies [facility] virus 1 Detected to non-numeric (Ammir [Presence] in results) [facility] Unspecified Physician) specimen by Organism specific culture Parainfluenza Not Normal (applies [facility] virus 2 Detected to non-numeric (Ammir [Presence] in results) [facility] Unspecified Physician) specimen by Organism specific culture Parainfluenza Not Normal (applies [facility] virus 3 Detected to non-numeric (Ammir [Presence] in results) [facility] Unspecified Physician) specimen by Organism specific culture PARAINFLUENZA Not Normal (applies [facility] VIRUS 4 Detected to non-numeric (Ammir results) [facility] Physician) RESP.SYNCYTIAL Not Normal (applies [facility] VIRUS Detected to non-numeric (Ammir results) [facility] Physician) Bordetella Not Normal (applies [facility] pertussis Detected to non-numeric (Ammir [Presence] in results) [facility] Unspecified Physician) specimen by Organism specific culture CHLAMYDOPHILIA Not Normal (applies [facility] PNEUMONIAE Detected to non-numeric (Ammir results) [facility] Physician) Mycoplasma Not Normal (applies [facility] pneumoniae Detected to non-numeric (Ammir [Presence] in results) [facility] Unspecified Physician) specimen by Organism specific culture Bordetella Not Normal (applies [facility] parapertussis Detected to non-numeric (Ammir [Presence] in results) [facility] Unspecified Physician) specimen by Organism specific culture ID Date Data Source [id number] 04/26/2019 12:00:00 AM EST [facility] (Ammir [facility] Physician) Name Value Range Interpretation Description Data Sup porting Code Source(s) Document(s ) Adenovirus Not Normal (applies [facility] [Presence] in Detected to non-numeric (Ammir Unspecified results) [facility] specimen by Physician) Organism specific culture CORONAVIRUS 229E Not Normal (applies [facility] Detected to non-numeric (Ammir results) [facility] Physician) CORONAVIRUS HKU1 Not Normal (applies [facility] Detected to non-numeric (Ammir results) [facility] Physician) CORONAVIRUS NL63 Not Normal (applies [facility] Detected to non-numeric (Ammir results) [facility] Physician) CORONAVIRUS OC43 Not Normal (applies [facility] Detected to non-numeric (Ammir results) [facility] Physician) HUMAN Not Normal (applies [facility] METAPNEUMOVIRUS Detected to non-numeric (Ammir results) [facility] Physician) HUMAN Not Normal (applies [facility] RHINOVIRUS/ENTERO Detected to non-numeric (Ammir VIRUS results) [facility] Physician) INFLUENZA A/H1 Not Normal (applies [facility] Detected to non-numeric (Ammir results) [facility] Physician) INFLUENZA A/H3 Not Normal (applies [facility] Detected to non-numeric (Ammir results) [facility] Physician) INFLUENZA Not Normal (applies [facility] A/H1-2009 Detected to non-numeric (Ammir results) [facility] Physician) INFLUENZA B Not Normal (applies [facility] Detected to non-numeric (Ammir results) [facility] Physician) Parainfluenza Not Normal (applies [facility] virus 1 Detected to non-numeric (Ammir [Presence] in results) [facility] Unspecified Physician) specimen by Organism specific culture Parainfluenza Not Normal (applies [facility] virus 2 Detected to non-numeric (Ammir [Presence] in results) [facility] Unspecified Physician) specimen by Organism specific culture Parainfluenza Not Normal (applies [facility] virus 3 Detected to non-numeric (Ammir [Presence] in results) [facility] Unspecified Physician) specimen by Organism specific culture PARAINFLUENZA Not Normal (applies [facility] VIRUS 4 Detected to non-numeric (Ammir results) [facility] Physician) RESP.SYNCYTIAL Not Normal (applies [facility] VIRUS Detected to non-numeric (Ammir results) [facility] Physician) Bordetella Not Normal (applies [facility] pertussis Detected to non-numeric (Ammir [Presence] in results) [facility] Unspecified Physician) specimen by Organism specific culture CHLAMYDOPHILIA Not Normal (applies [facility] PNEUMONIAE Detected to non-numeric (Ammir results) [facility] Physician) Mycoplasma Not Normal (applies [facility] pneumoniae Detected to non-numeric (Ammir [Presence] in results) [facility] Unspecified Physician) specimen by Organism specific culture Bordetella Not Normal (applies [facility] parapertussis Detected to non-numeric (Ammir [Presence] in results) [facility] Unspecified Physician) specimen by Organism specific culture ID Date Data Source [id number] 04/26/2019 12:00:00 AM EST [facility] (Ammir [facility] Physician) Name Value Range Interpretation Description Data Sup porting Code Source(s) Document(s ) Adenovirus Not Normal (applies [facility] [Presence] in Detected to non-numeric (Ammir Unspecified results) [place] specimen by Physician) Organism specific culture CORONAVIRUS 229E Not Normal (applies [facility] Detected to non-numeric (Ammir results) [facility] Physician) CORONAVIRUS HKU1 Not Normal (applies [facility] Detected to non-numeric (Ammir results) [facility] Physician) CORONAVIRUS NL63 Not Normal (applies [facility] Detected to non-numeric (Ammir results) [facility] Physician) CORONAVIRUS OC43 Not Normal (applies [facility] Detected to non-numeric (Ammir results) [facility] Physician) HUMAN Not Normal (applies [facility] METAPNEUMOVIRUS Detected to non-numeric (Ammir results) [facility] Physician) HUMAN Not Normal (applies [facility] RHINOVIRUS/ENTERO Detected to non-numeric (Ammir VIRUS results) [facility] Physician) INFLUENZA A/H1 Not Normal (applies [facility] Detected to non-numeric (Ammir results) [facility] Physician) INFLUENZA A/H3 Not Normal (applies [facility] Detected to non-numeric (Ammir results) [facility] Physician) INFLUENZA Not Normal (applies [facility] A/H1-2009 Detected to non-numeric (Ammir results) [facility] Physician) INFLUENZA B Not Normal (applies [facility] Detected to non-numeric (Ammir results) [facility] Physician) Parainfluenza Not Normal (applies [facility] virus 1 Detected to non-numeric (Ammir [Presence] in results) [facility] Unspecified Physician) specimen by Organism specific culture Parainfluenza Not Normal (applies [facility] virus 2 Detected to non-numeric (Ammir [Presence] in results) [facility] Unspecified Physician) specimen by Organism specific culture Parainfluenza Not Normal (applies [facility] virus 3 Detected to non-numeric (Ammir [Presence] in results) [facility] Unspecified Physician) specimen by Organism specific culture PARAINFLUENZA Not Normal (applies [facility] VIRUS 4 Detected to non-numeric (Ammir results) [facility] Physician) RESP.SYNCYTIAL Not Normal (applies [facility] VIRUS Detected to non-numeric (Ammir results) [facility] Physician) Bordetella Not Normal (applies [facility] pertussis Detected to non-numeric (Ammir [Presence] in results) [facility] Unspecified Physician) specimen by Organism specific culture CHLAMYDOPHILIA Not Normal (applies [facility] PNEUMONIAE Detected to non-numeric (Ammir results) [facility] Physician) Mycoplasma Not Normal (applies [facility] pneumoniae Detected to non-numeric (Ammir [Presence] in results) [facility] Unspecified Physician) specimen by Organism specific culture Bordetella Not Normal (applies [facility] parapertussis Detected to non-numeric (Ammir [Presence] in results) [facility] Unspecified Physician) specimen by Organism specific culture ID Date Data Source [id number] 04/26/2019 12:00:00 AM EST [facility] (Ammir [facility] Physician) Name Value Range Interpretation Description Data Sup porting Code Source(s) Document(s ) Adenovirus Not Normal (applies [facility] [Presence] in Detected to non-numeric (Ammir Unspecified results) [place] specimen by Physician) Organism specific culture CORONAVIRUS 229E Not Normal (applies [facility] Detected to non-numeric (Ammir results) [facility] Physician) CORONAVIRUS HKU1 Not Normal (applies [facility] Detected to non-numeric (Ammir results) [facility] Physician) CORONAVIRUS NL63 Not Normal (applies [facility] Detected to non-numeric (Ammir results) [facility] Physician) CORONAVIRUS OC43 Not Normal (applies [facility] Detected to non-numeric (Ammir results) [facility] Physician) HUMAN Not Normal (applies [facility] METAPNEUMOVIRUS Detected to non-numeric (Ammir results) [facility] Physician) HUMAN Not Normal (applies [facility] RHINOVIRUS/ENTERO Detected to non-numeric (Ammir VIRUS results) [facility] Physician) INFLUENZA A/H1 Not Normal (applies [facility] Detected to non-numeric (Ammir results) [facility] Physician) INFLUENZA A/H3 Not Normal (applies [facility] Detected to non-numeric (Ammir results) [place] Physician) INFLUENZA Not Normal (applies [facility] A/H1-2009 Detected to non-numeric (Ammir results) [facility] Physician) INFLUENZA B Not Normal (applies [facility] Detected to non-numeric (Ammir results) [facility] Physician) Parainfluenza Not Normal (applies [facility] virus 1 Detected to non-numeric (Ammir [Presence] in results) [place] Unspecified Physician) specimen by Organism specific culture Parainfluenza Not Normal (applies [facility] virus 2 Detected to non-numeric (Ammir [Presence] in results) [place] Unspecified Physician) specimen by Organism specific culture Parainfluenza Not Normal (applies [facility] virus 3 Detected to non-numeric (Ammir [Presence] in results) [place] Unspecified Physician) specimen by Organism specific culture PARAINFLUENZA Not Normal (applies [facility] VIRUS 4 Detected to non-numeric (Ammir results) [facility] Physician) RESP.SYNCYTIAL Not Normal (applies [facility] VIRUS Detected to non-numeric (Ammir results) [facility] Physician) Bordetella Not Normal (applies [facility] pertussis Detected to non-numeric (Ammir [Presence] in results) [place] Unspecified Physician) specimen by Organism specific culture CHLAMYDOPHILIA Not Normal (applies [facility] PNEUMONIAE Detected to non-numeric (Ammir results) [facility] Physician) Mycoplasma Not Normal (applies [facility] pneumoniae Detected to non-numeric (Ammir [Presence] in results) [place] Unspecified Physician) specimen by Organism specific culture Bordetella Not Normal (applies [facility] parapertussis Detected to non-numeric (Ammir [Presence] in results) [place] Unspecified Physician) specimen by Organism specific culture ID Date Data Source [id number] 03/07/2019 12:00:00 AM EST [facility] (Ammir [facility] Physician) Name Value Range Interpretation Description Data Sup porting Code Source(s) Document(s ) GLUCOSE 108 Normal (applies [facility] NONFASTING,SERUM mg/dL to non-numeric (Ammir results) [facility] Physician) SODIUM, SERUM 142 Normal (applies [facility] mEq/L to non-numeric (Ammir results) [facility] Physician) POTASSIUM, SERUM 4.0 Normal (applies [facility] mEq/L to non-numeric (Ammir results) [facility] Physician) CHLORIDE, SERUM 107 Normal (applies [facility] mEq/L to non-numeric (Ammir results) [facility] Physician) Carbon dioxide 26 mEq/L Normal (applies [facility] [VFr/PPres] in to non-numeric (Ammir Gas delivery results) [facility] system Physician) Anion gap in 13 mEq/L Normal (applies [facility] Body fluid to non-numeric (Ammir results) [facility] Physician) BLOOD UREA 12 mg/dL Normal (applies [facility] NITROGEN to non-numeric (Ammir results) [place] Physician) CREATININE, 0.90 Above high normal [facility] SERUM mg/dL (Ammir [facility] Physician) BUN/CREATININE 13.33 Normal (applies [facility] RATIO to non-numeric (Ammir results) [place] Physician) CALCIUM, SERUM 9.9 Normal (applies [facility] mg/dL to non-numeric (Ammir results) [facility] Physician) TOTAL PROTEIN 6.9 g/dL Normal (applies [facility] to non-numeric (Ammir results) [facility] Physician) Microalbumin 4.7 g/dL Normal (applies [facility] [Mass/time] in to non-numeric (Ammir Urine collected results) [place] for unspecified Physician) duration Globulin 2.2 gldl Normal (applies [facility] [Mass/time] in to non-numeric (Ammir 24 hour Urine results) [facility] Physician) A/G RATIO 2.14 Above high normal [facility] g/dl (Ammir [facility] Physician) BILIRUBIN, TOTAL 1.1 Normal (applies [facility] mg/dL to non-numeric (Ammir results) [facility] Physician) ALKALINE 89 U/L Normal (applies [facility] PHOSPHATASE, ALP to non-numeric (Ammir results) [place] Physician) ALT (SGPT) 20 U/L Normal (applies [facility] to non-numeric (Ammir results) [facility] Physician) AST 37 U/L Above high normal [facility] (Ammir [facility] Physician) EGFR NON AFR 63 Normal (applies [facility] SOMALI mL/min/1 to non-numeric (Ammir .73m2 results) [facility] Physician) EGFR AFR 76 Normal (applies [facility] SOMALI mL/min/1 to non-numeric (Ammir .73m2 results) [facility] Physician) ID Date Data Source [id number] 03/07/2019 12:00:00 AM EST [facility] (Ammir [facility] Physician) Name Value Range Interpretation Description Data Sup porting Code Source(s) Document(s ) Cholesterol 199 Normal (applies [facility] [Moles/volume] mg/dL to non-numeric (Ammir in Pericardial results) [facility] fluid Physician) LDL CALCULATION 107.6 Normal (applies [facility] mg/dL to non-numeric (Ammir results) [place] Physician) CHOL/HDL RATIO 2.84 Normal (applies [facility] ratio to non-numeric (Ammir results) [facility] Physician) HDL CHOLESTEROL 70 mg/dL Normal (applies [facility] to non-numeric (Ammir results) [facility] Physician) VLDL CALCULATION 21.4 Normal (applies [facility] mg/dl to non-numeric (Ammir results) [facility] Physician) TRIGLYCERIDES 107 Normal (applies [facility] mg/dL to non-numeric (Ammir results) [facility] Physician) ID Date Data Source [id number] 03/07/2019 12:00:00 AM EST [facility] (Ammir [facility] Physician) Name Value Range Interpretation Description Data Sup porting Code Source(s) Document(s ) T4 FREE, 1.68 Normal (applies to [facility] THYROXINE ng/dL non-numeric (Ammir results) [facility] Physician) TSH,3RD 3.01 Normal (applies to [facility] GENERATION uIU/mL non-numeric (Ammir results) [facility] Physician) ID Date Data Source [id number] 03/07/2019 12:00:00 AM EST [facility] (Ammir [facility] Physician) Name Value Range Interpretation Description Data Sup porting Code Source(s) Document(s ) Ferritin 86.5 Normal (applies to [facility] (Amm ir [Interpretat ng/mL non-numeric [place] ion] in results) Physician) Blood ID Date Data Source [id number] 03/07/2019 12:00:00 AM EST [facility] (Ammir [facility] Physician) Name Value Range Interpretation Description Data Sup porting Code Source(s) Document(s ) Transferrin 324 mg/dL Normal (applies [facility] [Mass/time] in to non-numeric (Ammir 24 hour Urine results) [facility] Physician) TIBC 454.3 Above high normal [facility] ug/dL (Ammir [facility] Physician) UIBC 353.3 Normal (applies [facility] ug/dL to non-numeric (Ammir results) [facility] Physician) %SATURATION 22.2 % Normal (applies [facility] to non-numeric (Ammir results) [facility] Physician) ID Date Data Source [id number] 03/07/2019 12:00:00 AM EST [facility] (Ammir [facility] Physician) Name Value Range Interpretation Description Data Sup porting Code Source(s) Document(s ) WBC 4.9 Normal (applies [facility] 10(3)/uL to non-numeric (Ammir results) [facility] Physician) RBC 4.6 Normal (applies [facility] 10(6)/uL to non-numeric (Ammir results) [facility] Physician) Hemoglobin 13.9 g/dL Normal (applies [facility] [Mass/volume] to non-numeric (Ammir in Mixed venous results) [place] blood by Physician) Oximetry Hematocrit 42.1 % Normal (applies [facility] [Pure volume to non-numeric (Ammir fraction] of results) [place] Blood by Physician) Automated count MCV 91.7 fL Normal (applies [facility] to non-numeric (Ammir results) [facility] Physician) MCH 30 pg Normal (applies [facility] to non-numeric (Ammir results) [place] Physician) MCHC 33 g/dL Normal (applies [facility] to non-numeric (Ammir results) [facility] Physician) RDWSD 43.4 fL Normal (applies [facility] to non-numeric (Ammir results) [facility] Physician) RDWCV 13.0 % Normal (applies [facility] to non-numeric (Ammir results) [facility] Physician) Platelet Count 288 Normal (applies [facility] 10(3)/uL to non-numeric (Ammir results) [facility] Physician) MPV 10.9 fL Normal (applies [facility] to non-numeric (Ammir results) [facility] Physician) Neutrophil Abs 2.53 Normal (applies [facility] 10(3)/uL to non-numeric (Ammir results) [facility] Physician) Lymphocyte Abs 1.73 Normal (applies [facility] 10(3)/uL to non-numeric (Ammir results) [facility] Physician) Monocyte Abs 0.48 Normal (applies [facility] 10(3)/uL to non-numeric (Ammir results) [facility] Physician) Eosinophil Abs 0.04 Normal (applies [facility] 10(3)/uL to non-numeric (Ammir results) [facility] Physician) Basophil Abs 0.04 Normal (applies [facility] 10(3)/uL to non-numeric (Ammir results) [facility] Physician) Immature 0.03 Normal (applies [facility] Granulocyte Abs 10(3)/uL to non-numeric (Ammir results) [facility] Physician) Neutrophil % 52.20 % Normal (applies [facility] to non-numeric (Ammir results) [facility] Physician) Lymphocyte % 36 % Normal (applies [facility] to non-numeric (Ammir results) [facility] Physician) Monocyte % 9.9 % Normal (applies [facility] to non-numeric (Ammir results) [facility] Physician) Eosinophil % 0.8 % Normal (applies [facility] to non-numeric (Ammir results) [facility] Physician) Basophil % 0.8 % Normal (applies [facility] to non-numeric (Ammir results) [facility] Physician) Immature 0.60 % Normal (applies [facility] Granulocyte % to non-numeric (Ammir results) [place] Physician) NRBC % 0.0 % Normal (applies [facility] to non-numeric (Ammir results) [place] Physician) NRBC Abs 0.00 Normal (applies [facility] 10(3)/uL to non-numeric (Ammir results) [place] Physician) ID Date Data Source [id number] 03/07/2019 12:00:00 AM EST [facility] (Ammir [place] Physician) Name Value Range Interpretation Description Data Sup porting Code Source(s) Document(s ) FOLATE SERUM 13.7 Normal (applies to [facility] ( Ammir ng/mL non-numeric [place] results) Physician) VITAMIN B12 674 pg/mL Normal (applies to [facility] (A mmir non-numeric [place] results) Physician) ID Date Data Source [id number] 03/07/2019 12:00:00 AM EST [facility] (Ammir [place] Physician) Name Value Range Interpretation Description Data Sup porting Code Source(s) Document(s ) VITAMIN D 30.82 Below low normal [facility] (Ammir 25-HYDROXY ng/mL [place] Physician) ID Date Data Source [id number] 03/07/2019 12:00:00 AM EST [facility] (Ammir [place] Physician) Name Value Range Interpretation Code Description Data Ning rce(s) Supporting Document(s ) URIC ACID 2.6 mg/dL Below low normal [facility] (Ammir [place] Physician) ID Date Data Source [id number] 03/07/2019 12:00:00 AM EST [facility] (Ammir [place] Physician) Name Value Range Interpretation Code Description Data Supporting Source(s) Document(s ) IRON, 101 ug/dL Normal (applies to [facility] (Amm ir TOTAL non-numeric [place] results) Physician) ID Date Data Source [id number] 03/07/2019 12:00:00 AM EST [facility] (Ammir [place] Physician) Name Value Range Interpretation Description Data Sup porting Code Source(s) Document(s ) PROTHROMBIN 27.4 sec Above high normal [facility] TIME, PT (Ammir [place] Physician) INR 2.37 Above high normal [facility] (Ammir [place] Physician) ID Date Data Source [id number] 03/07/2019 12:00:00 AM EST [facility] (Ammir [place] Physician) Name Value Range Interpretation Description Data Sup porting Code Source(s) Document(s ) GLUCOSE 108 Normal (applies [facility] NONFASTING,SERUM mg/dL to non-numeric (Ammir results) [place] Physician) SODIUM, SERUM 142 Normal (applies [facility] mEq/L to non-numeric (Ammir results) [place] Physician) POTASSIUM, SERUM 4.0 Normal (applies [facility] mEq/L to non-numeric (Ammir results) [place] Physician) CHLORIDE, SERUM 107 Normal (applies [facility] mEq/L to non-numeric (Ammir results) [place] Physician) Carbon dioxide 26 mEq/L Normal (applies [facility] [VFr/PPres] in to non-numeric (Ammir Gas delivery results) [place] system Physician) Anion gap in 13 mEq/L Normal (applies [facility] Body fluid to non-numeric (Ammir results) [place] Physician) BLOOD UREA 12 mg/dL Normal (applies [facility] NITROGEN to non-numeric (Ammir results) [place] Physician) CREATININE, 0.90 Above high normal [facility] SERUM mg/dL (Ammir [place] Physician) BUN/CREATININE 13.33 Normal (applies [facility] RATIO to non-numeric (Ammir results) [place] Physician) CALCIUM, SERUM 9.9 Normal (applies [facility] mg/dL to non-numeric (Ammir results) [place] Physician) TOTAL PROTEIN 6.9 g/dL Normal (applies [facility] to non-numeric (Ammir results) [place] Physician) Microalbumin 4.7 g/dL Normal (applies [facility] [Mass/time] in to non-numeric (Ammir Urine collected results) [place] for unspecified Physician) duration Globulin 2.2 gldl Normal (applies [facility] [Mass/time] in to non-numeric (Ammir 24 hour Urine results) [place] Physician) A/G RATIO 2.14 Above high normal [facility] g/dl (Ammir [place] Physician) BILIRUBIN, TOTAL 1.1 Normal (applies [facility] mg/dL to non-numeric (Ammir results) [place] Physician) ALKALINE 89 U/L Normal (applies [facility] PHOSPHATASE, ALP to non-numeric (Ammir results) [place] Physician) ALT (SGPT) 20 U/L Normal (applies [facility] to non-numeric (Ammir results) [place] Physician) AST 37 U/L Above high normal [facility] (Ammir [place] Physician) EGFR NON AFR 63 Normal (applies [facility] SOMALI mL/min/1 to non-numeric (Ammir .73m2 results) [place] Physician) EGFR AFR 76 Normal (applies [facility] SOMALI mL/min/1 to non-numeric (Ammir .73m2 results) [place] Physician) ID Date Data Source [id number] 03/07/2019 12:00:00 AM EST [facility] (Ammir [place] Physician) Name Value Range Interpretation Description Data Sup porting Code Source(s) Document(s ) Cholesterol 199 Normal (applies [facility] [Moles/volume] mg/dL to non-numeric (Ammir in Pericardial results) [place] fluid Physician) LDL CALCULATION 107.6 Normal (applies [facility] mg/dL to non-numeric (Ammir results) [place] Physician) CHOL/HDL RATIO 2.84 Normal (applies [facility] ratio to non-numeric (Ammir results) [place] Physician) HDL CHOLESTEROL 70 mg/dL Normal (applies [facility] to non-numeric (Ammir results) [place] Physician) VLDL CALCULATION 21.4 Normal (applies [facility] mg/dl to non-numeric (Ammir results) [place] Physician) TRIGLYCERIDES 107 Normal (applies [facility] mg/dL to non-numeric (Ammir results) [place] Physician) ID Date Data Source [id number] 03/07/2019 12:00:00 AM EST [facility] (Ammir [place] Physician) Name Value Range Interpretation Description Data Sup porting Code Source(s) Document(s ) T4 FREE, 1.68 Normal (applies to [facility] THYROXINE ng/dL non-numeric (Ammir results) [place] Physician) TSH,3RD 3.01 Normal (applies to [facility] GENERATION uIU/mL non-numeric (Ammir results) [place] Physician) ID Date Data Source [id number] 03/07/2019 12:00:00 AM EST [facility] (Ammir [place] Physician) Name Value Range Interpretation Description Data Sup porting Code Source(s) Document(s ) Ferritin 86.5 Normal (applies to [facility] (Amm ir [Interpretat ng/mL non-numeric [place] ion] in results) Physician) Blood ID Date Data Source [id number] 03/07/2019 12:00:00 AM EST [facility] (Ammir [place] Physician) Name Value Range Interpretation Description Data Sup porting Code Source(s) Document(s ) Transferrin 324 mg/dL Normal (applies [facility] [Mass/time] in to non-numeric (Ammir 24 hour Urine results) [place] Physician) TIBC 454.3 Above high normal [facility] ug/dL (Ammir [place] Physician) UIBC 353.3 Normal (applies [facility] ug/dL to non-numeric (Ammir results) [place] Physician) %SATURATION 22.2 % Normal (applies [facility] to non-numeric (Ammir results) [place] Physician) ID Date Data Source [id number] 03/07/2019 12:00:00 AM EST [facility] (Ammir [place] Physician) Name Value Range Interpretation Description Data Sup porting Code Source(s) Document(s ) WBC 4.9 Normal (applies [facility] 10(3)/uL to non-numeric (Ammir results) [place] Physician) RBC 4.6 Normal (applies [facility] 10(6)/uL to non-numeric (Ammir results) [place] Physician) Hemoglobin 13.9 g/dL Normal (applies [facility] [Mass/volume] to non-numeric (Ammir in Mixed venous results) [place] blood by Physician) Oximetry Hematocrit 42.1 % Normal (applies [facility] [Pure volume to non-numeric (Ammir fraction] of results) [place] Blood by Physician) Automated count MCV 91.7 fL Normal (applies [facility] to non-numeric (Ammir results) [place] Physician) MCH 30 pg Normal (applies [facility] to non-numeric (Ammir results) [place] Physician) MCHC 33 g/dL Normal (applies [facility] to non-numeric (Ammir results) [place] Physician) RDWSD 43.4 fL Normal (applies [facility] to non-numeric (Ammir results) [place] Physician) RDWCV 13.0 % Normal (applies [facility] to non-numeric (Ammir results) [place] Physician) Platelet Count 288 Normal (applies [facility] 10(3)/uL to non-numeric (Ammir results) [place] Physician) MPV 10.9 fL Normal (applies [facility] to non-numeric (Ammir results) [place] Physician) Neutrophil Abs 2.53 Normal (applies [facility] 10(3)/uL to non-numeric (Ammir results) [place] Physician) Lymphocyte Abs 1.73 Normal (applies [facility] 10(3)/uL to non-numeric (Ammir results) [place] Physician) Monocyte Abs 0.48 Normal (applies [facility] 10(3)/uL to non-numeric (Ammir results) [place] Physician) Eosinophil Abs 0.04 Normal (applies [facility] 10(3)/uL to non-numeric (Ammir results) [place] Physician) Basophil Abs 0.04 Normal (applies [facility] 10(3)/uL to non-numeric (Ammir results) [place] Physician) Immature 0.03 Normal (applies [facility] Granulocyte Abs 10(3)/uL to non-numeric (Ammir results) [place] Physician) Neutrophil % 52.20 % Normal (applies [facility] to non-numeric (Ammir results) [place] Physician) Lymphocyte % 36 % Normal (applies [facility] to non-numeric (Ammir results) [place] Physician) Monocyte % 9.9 % Normal (applies [facility] to non-numeric (Ammir results) [place] Physician) Eosinophil % 0.8 % Normal (applies [facility] to non-numeric (Ammir results) [place] Physician) Basophil % 0.8 % Normal (applies [facility] to non-numeric (Ammir results) [place] Physician) Immature 0.60 % Normal (applies [facility] Granulocyte % to non-numeric (Ammir results) [place] Physician) NRBC % 0.0 % Normal (applies [facility] to non-numeric (Ammir results) [place] Physician) NRBC Abs 0.00 Normal (applies [facility] 10(3)/uL to non-numeric (Ammir results) [place] Physician) ID Date Data Source [id number] 03/07/2019 12:00:00 AM EST [facility] (Ammir [place] Physician) Name Value Range Interpretation Description Data Sup porting Code Source(s) Document(s ) FOLATE SERUM 13.7 Normal (applies to [facility] ( Ammir ng/mL non-numeric [place] results) Physician) VITAMIN B12 674 pg/mL Normal (applies to [facility] (A mmir non-numeric [place] results) Physician) ID Date Data Source [id number] 03/07/2019 12:00:00 AM EST [facility] (Ammir [place] Physician) Name Value Range Interpretation Description Data Sup porting Code Source(s) Document(s ) VITAMIN D 30.82 Below low normal [facility] (Ammir 25-HYDROXY ng/mL [place] Physician) ID Date Data Source [id number] 03/07/2019 12:00:00 AM EST [facility] (Ammir [place] Physician) Name Value Range Interpretation Code Description Data Ning rce(s) Supporting Document(s ) URIC ACID 2.6 mg/dL Below low normal [facility] (Ammir [place] Physician) ID Date Data Source [id number] 03/07/2019 12:00:00 AM EST [facility] (Ammir [place] Physician) Name Value Range Interpretation Code Description Data Supporting Source(s) Document(s ) IRON, 101 ug/dL Normal (applies to [facility] (Amm ir TOTAL non-numeric [place] results) Physician) ID Date Data Source [id number] 03/07/2019 12:00:00 AM EST [facility] (Ammir [place] Physician) Name Value Range Interpretation Description Data Sup porting Code Source(s) Document(s ) PROTHROMBIN 27.4 sec Above high normal [facility] TIME, PT (Ammir [place] Physician) INR 2.37 Above high normal [facility] (Ammir [place] Physician) ID Date Data Source [id number] 03/07/2019 12:00:00 AM EST [facility] (Ammir [place] Physician) Name Value Range Interpretation Description Data Sup porting Code Source(s) Document(s ) GLUCOSE 108 Normal (applies [facility] NONFASTING,SERUM mg/dL to non-numeric (Ammir results) [place] Physician) SODIUM, SERUM 142 Normal (applies [facility] mEq/L to non-numeric (Ammir results) [place] Physician) POTASSIUM, SERUM 4.0 Normal (applies [facility] mEq/L to non-numeric (Ammir results) [place] Physician) CHLORIDE, SERUM 107 Normal (applies [facility] mEq/L to non-numeric (Ammir results) [place] Physician) Carbon dioxide 26 mEq/L Normal (applies [facility] [VFr/PPres] in to non-numeric (Ammir Gas delivery results) [place] system Physician) Anion gap in 13 mEq/L Normal (applies [facility] Body fluid to non-numeric (Ammir results) [place] Physician) BLOOD UREA 12 mg/dL Normal (applies [facility] NITROGEN to non-numeric (Ammir results) [place] Physician) CREATININE, 0.90 Above high normal [facility] SERUM mg/dL (Ammir [place] Physician) BUN/CREATININE 13.33 Normal (applies [facility] RATIO to non-numeric (Ammir results) [place] Physician) CALCIUM, SERUM 9.9 Normal (applies [facility] mg/dL to non-numeric (Ammir results) [place] Physician) TOTAL PROTEIN 6.9 g/dL Normal (applies [facility] to non-numeric (Ammir results) [place] Physician) Microalbumin 4.7 g/dL Normal (applies [facility] [Mass/time] in to non-numeric (Ammir Urine collected results) [place] for unspecified Physician) duration Globulin 2.2 gldl Normal (applies [facility] [Mass/time] in to non-numeric (Ammir 24 hour Urine results) [place] Physician) A/G RATIO 2.14 Above high normal [facility] g/dl (Ammir [place] Physician) BILIRUBIN, TOTAL 1.1 Normal (applies [facility] mg/dL to non-numeric (Ammir results) [place] Physician) ALKALINE 89 U/L Normal (applies [facility] PHOSPHATASE, ALP to non-numeric (Ammir results) [place] Physician) ALT (SGPT) 20 U/L Normal (applies [facility] to non-numeric (Ammir results) [place] Physician) AST 37 U/L Above high normal [facility] (Ammir [place] Physician) EGFR NON AFR 63 Normal (applies [facility] SOMALI mL/min/1 to non-numeric (Ammir .73m2 results) [place] Physician) EGFR AFR 76 Normal (applies [facility] SOMALI mL/min/1 to non-numeric (Ammir .73m2 results) [place] Physician) ID Date Data Source [id number] 03/07/2019 12:00:00 AM EST [facility] (Ammir [place] Physician) Name Value Range Interpretation Description Data Sup porting Code Source(s) Document(s ) Cholesterol 199 Normal (applies [facility] [Moles/volume] mg/dL to non-numeric (Ammir in Pericardial results) [place] fluid Physician) LDL CALCULATION 107.6 Normal (applies [facility] mg/dL to non-numeric (Ammir results) [place] Physician) CHOL/HDL RATIO 2.84 Normal (applies [facility] ratio to non-numeric (Ammir results) [place] Physician) HDL CHOLESTEROL 70 mg/dL Normal (applies [facility] to non-numeric (Ammir results) [place] Physician) VLDL CALCULATION 21.4 Normal (applies [facility] mg/dl to non-numeric (Ammir results) [place] Physician) TRIGLYCERIDES 107 Normal (applies [facility] mg/dL to non-numeric (Ammir results) [place] Physician) ID Date Data Source [id number] 03/07/2019 12:00:00 AM EST [facility] (Ammir [place] Physician) Name Value Range Interpretation Description Data Sup porting Code Source(s) Document(s ) T4 FREE, 1.68 Normal (applies to [facility] THYROXINE ng/dL non-numeric (Ammir results) [place] Physician) TSH,3RD 3.01 Normal (applies to [facility] GENERATION uIU/mL non-numeric (Ammir results) [place] Physician) ID Date Data Source [id number] 03/07/2019 12:00:00 AM EST [facility] (Ammir [place] Physician) Name Value Range Interpretation Description Data Sup porting Code Source(s) Document(s ) Ferritin 86.5 Normal (applies to [facility] (Amm ir [Interpretat ng/mL non-numeric [place] ion] in results) Physician) Blood ID Date Data Source [id number] 03/07/2019 12:00:00 AM EST [facility] (Ammir [place] Physician) Name Value Range Interpretation Description Data Sup porting Code Source(s) Document(s ) Transferrin 324 mg/dL Normal (applies [facility] [Mass/time] in to non-numeric (Ammir 24 hour Urine results) [place] Physician) TIBC 454.3 Above high normal [facility] ug/dL (Ammir [place] Physician) UIBC 353.3 Normal (applies [facility] ug/dL to non-numeric (Ammir results) [place] Physician) %SATURATION 22.2 % Normal (applies [facility] to non-numeric (Ammir results) [place] Physician) ID Date Data Source [id number] 03/07/2019 12:00:00 AM EST [facility] (Ammir [place] Physician) Name Value Range Interpretation Description Data Sup porting Code Source(s) Document(s ) WBC 4.9 Normal (applies [facility] 10(3)/uL to non-numeric (Ammir results) [place] Physician) RBC 4.6 Normal (applies [facility] 10(6)/uL to non-numeric (Ammir results) [place] Physician) Hemoglobin 13.9 g/dL Normal (applies [facility] [Mass/volume] to non-numeric (Ammir in Mixed venous results) [place] blood by Physician) Oximetry Hematocrit 42.1 % Normal (applies [facility] [Pure volume to non-numeric (Ammir fraction] of results) [place] Blood by Physician) Automated count MCV 91.7 fL Normal (applies [facility] to non-numeric (Ammir results) [place] Physician) MCH 30 pg Normal (applies [facility] to non-numeric (Ammir results) [place] Physician) MCHC 33 g/dL Normal (applies [facility] to non-numeric (Ammir results) [place] Physician) RDWSD 43.4 fL Normal (applies [facility] to non-numeric (Ammir results) [place] Physician) RDWCV 13.0 % Normal (applies [facility] to non-numeric (Ammir results) [place] Physician) Platelet Count 288 Normal (applies [facility] 10(3)/uL to non-numeric (Ammir results) [place] Physician) MPV 10.9 fL Normal (applies [facility] to non-numeric (Ammir results) [place] Physician) Neutrophil Abs 2.53 Normal (applies [facility] 10(3)/uL to non-numeric (Ammir results) [place] Physician) Lymphocyte Abs 1.73 Normal (applies [facility] 10(3)/uL to non-numeric (Ammir results) [place] Physician) Monocyte Abs 0.48 Normal (applies [facility] 10(3)/uL to non-numeric (Ammir results) [place] Physician) Eosinophil Abs 0.04 Normal (applies [facility] 10(3)/uL to non-numeric (Ammir results) [place] Physician) Basophil Abs 0.04 Normal (applies [facility] 10(3)/uL to non-numeric (Ammir results) [place] Physician) Immature 0.03 Normal (applies [facility] Granulocyte Abs 10(3)/uL to non-numeric (Ammir results) [place] Physician) Neutrophil % 52.20 % Normal (applies [facility] to non-numeric (Ammir results) [place] Physician) Lymphocyte % 36 % Normal (applies [facility] to non-numeric (Ammir results) [place] Physician) Monocyte % 9.9 % Normal (applies [facility] to non-numeric (Ammir results) [place] Physician) Eosinophil % 0.8 % Normal (applies [facility] to non-numeric (Ammir results) [place] Physician) Basophil % 0.8 % Normal (applies [facility] to non-numeric (Ammir results) [place] Physician) Immature 0.60 % Normal (applies [facility] Granulocyte % to non-numeric (Ammir results) [place] Physician) NRBC % 0.0 % Normal (applies [facility] to non-numeric (Ammir results) [place] Physician) NRBC Abs 0.00 Normal (applies [facility] 10(3)/uL to non-numeric (Ammir results) [place] Physician) ID Date Data Source [id number] 03/07/2019 12:00:00 AM EST [facility] (Ammir [place] Physician) Name Value Range Interpretation Description Data Sup porting Code Source(s) Document(s ) FOLATE SERUM 13.7 Normal (applies to [facility] ( Ammir ng/mL non-numeric [place] results) Physician) VITAMIN B12 674 pg/mL Normal (applies to [facility] (A mmir non-numeric [place] results) Physician) ID Date Data Source [id number] 03/07/2019 12:00:00 AM EST [facility] (Ammir [place] Physician) Name Value Range Interpretation Description Data Sup porting Code Source(s) Document(s ) VITAMIN D 30.82 Below low normal [facility] (Ammir 25-HYDROXY ng/mL [place] Physician) ID Date Data Source [id number] 03/07/2019 12:00:00 AM EST [facility] (Ammir [place] Physician) Name Value Range Interpretation Code Description Data Ning rce(s) Supporting Document(s ) URIC ACID 2.6 mg/dL Below low normal [facility] (Ammir [place] Physician) ID Date Data Source [id number] 03/07/2019 12:00:00 AM EST [facility] (Ammir [place] Physician) Name Value Range Interpretation Code Description Data Supporting Source(s) Document(s ) IRON, 101 ug/dL Normal (applies to [facility] (Amm ir TOTAL non-numeric [place] results) Physician) ID Date Data Source [id number] 03/07/2019 12:00:00 AM EST [facility] (Ammir [place] Physician) Name Value Range Interpretation Description Data Sup porting Code Source(s) Document(s ) PROTHROMBIN 27.4 sec Above high normal [facility] TIME, PT (Ammir [place] Physician) INR 2.37 Above high normal [facility] (Ammir [place] Physician) ID Date Data Source [id number] 03/07/2019 12:00:00 AM EST [facility] (Ammir [place] Physician) Name Value Range Interpretation Description Data Sup porting Code Source(s) Document(s ) Cholesterol 199 Normal (applies [facility] [Moles/volume] mg/dL to non-numeric (Ammir in Pericardial results) [place] fluid Physician) LDL CALCULATION 107.6 Normal (applies [facility] mg/dL to non-numeric (Ammir results) [place] Physician) CHOL/HDL RATIO 2.84 Normal (applies [facility] ratio to non-numeric (Ammir results) [place] Physician) HDL CHOLESTEROL 70 mg/dL Normal (applies [facility] to non-numeric (Ammir results) [place] Physician) VLDL CALCULATION 21.4 Normal (applies [facility] mg/dl to non-numeric (Ammir results) [place] Physician) TRIGLYCERIDES 107 Normal (applies [facility] mg/dL to non-numeric (Ammir results) [place] Physician) ID Date Data Source [id number] 03/07/2019 12:00:00 AM EST [facility] (Ammir [place] Physician) Name Value Range Interpretation Description Data Sup porting Code Source(s) Document(s ) T4 FREE, 1.68 Normal (applies to [facility] THYROXINE ng/dL non-numeric (Ammir results) [place] Physician) TSH,3RD 3.01 Normal (applies to [facility] GENERATION uIU/mL non-numeric (Ammir results) [place] Physician) ID Date Data Source [id number] 03/07/2019 12:00:00 AM EST [facility] (Ammir [place] Physician) Name Value Range Interpretation Description Data Sup porting Code Source(s) Document(s ) Ferritin 86.5 Normal (applies to [facility] (Amm ir [Interpretat ng/mL non-numeric [place] ion] in results) Physician) Blood ID Date Data Source [id number] 03/07/2019 12:00:00 AM EST [facility] (Ammir [place] Physician) Name Value Range Interpretation Description Data Sup porting Code Source(s) Document(s ) Transferrin 324 mg/dL Normal (applies [facility] [Mass/time] in to non-numeric (Ammir 24 hour Urine results) [place] Physician) TIBC 454.3 Above high normal [facility] ug/dL (Ammir [place] Physician) UIBC 353.3 Normal (applies [facility] ug/dL to non-numeric (Ammir results) [place] Physician) %SATURATION 22.2 % Normal (applies [facility] to non-numeric (Ammir results) [place] Physician) ID Date Data Source [id number] 03/07/2019 12:00:00 AM EST [facility] (Ammir [place] Physician) Name Value Range Interpretation Description Data Sup porting Code Source(s) Document(s ) WBC 4.9 Normal (applies [facility] 10(3)/uL to non-numeric (Ammir results) [place] Physician) RBC 4.6 Normal (applies [facility] 10(6)/uL to non-numeric (Ammir results) [place] Physician) Hemoglobin 13.9 g/dL Normal (applies [facility] [Mass/volume] to non-numeric (Ammir in Mixed venous results) [place] blood by Physician) Oximetry Hematocrit 42.1 % Normal (applies [facility] [Pure volume to non-numeric (Ammir fraction] of results) [place] Blood by Physician) Automated count MCV 91.7 fL Normal (applies [facility] to non-numeric (Ammir results) [place] Physician) MCH 30 pg Normal (applies [facility] to non-numeric (Ammir results) [place] Physician) MCHC 33 g/dL Normal (applies [facility] to non-numeric (Ammir results) [place] Physician) RDWSD 43.4 fL Normal (applies [facility] to non-numeric (Ammir results) [place] Physician) RDWCV 13.0 % Normal (applies [facility] to non-numeric (Ammir results) [place] Physician) Platelet Count 288 Normal (applies [facility] 10(3)/uL to non-numeric (Ammir results) [place] Physician) MPV 10.9 fL Normal (applies [facility] to non-numeric (Ammir results) [place] Physician) Neutrophil Abs 2.53 Normal (applies [facility] 10(3)/uL to non-numeric (Ammir results) [place] Physician) Lymphocyte Abs 1.73 Normal (applies [facility] 10(3)/uL to non-numeric (Ammir results) [place] Physician) Monocyte Abs 0.48 Normal (applies [facility] 10(3)/uL to non-numeric (Ammir results) [place] Physician) Eosinophil Abs 0.04 Normal (applies [facility] 10(3)/uL to non-numeric (Ammir results) [place] Physician) Basophil Abs 0.04 Normal (applies [facility] 10(3)/uL to non-numeric (Ammir results) [place] Physician) Immature 0.03 Normal (applies [facility] Granulocyte Abs 10(3)/uL to non-numeric (Ammir results) [place] Physician) Neutrophil % 52.20 % Normal (applies [facility] to non-numeric (Ammir results) [place] Physician) Lymphocyte % 36 % Normal (applies [facility] to non-numeric (Ammir results) [place] Physician) Monocyte % 9.9 % Normal (applies [facility] to non-numeric (Ammir results) [place] Physician) Eosinophil % 0.8 % Normal (applies [facility] to non-numeric (Ammir results) [place] Physician) Basophil % 0.8 % Normal (applies [facility] to non-numeric (Ammir results) [place] Physician) Immature 0.60 % Normal (applies [facility] Granulocyte % to non-numeric (Ammir results) [place] Physician) NRBC % 0.0 % Normal (applies [facility] to non-numeric (Ammir results) [place] Physician) NRBC Abs 0.00 Normal (applies [facility] 10(3)/uL to non-numeric (Ammir results) [place] Physician) ID Date Data Source [id number] 03/07/2019 12:00:00 AM EST [facility] (Ammir [place] Physician) Name Value Range Interpretation Description Data Sup porting Code Source(s) Document(s ) FOLATE SERUM 13.7 Normal (applies to [facility] ( Ammir ng/mL non-numeric [place] results) Physician) VITAMIN B12 674 pg/mL Normal (applies to [facility] (A mmir non-numeric [place] results) Physician) ID Date Data Source [id number] 03/07/2019 12:00:00 AM EST [facility] (Ammir [place] Physician) Name Value Range Interpretation Description Data Sup porting Code Source(s) Document(s ) VITAMIN D 30.82 Below low normal [facility] (Ammir 25-HYDROXY ng/mL [place] Physician) ID Date Data Source [id number] 03/07/2019 12:00:00 AM EST [facility] (Ammir [place] Physician) Name Value Range Interpretation Code Description Data Ning rce(s) Supporting Document(s ) URIC ACID 2.6 mg/dL Below low normal [facility] (Ammir [place] Physician) ID Date Data Source [id number] 03/07/2019 12:00:00 AM EST [facility] (Ammir [place] Physician) Name Value Range Interpretation Code Description Data Supporting Source(s) Document(s ) IRON, 101 ug/dL Normal (applies to [facility] (Amm ir TOTAL non-numeric [place] results) Physician) ID Date Data Source [id number] 03/07/2019 12:00:00 AM EST [facility] (Ammir Wilmar Physician) Name Value Range Interpretation Description Data Sup porting Code Source(s) Document(s ) PROTHROMBIN 27.4 sec Above high normal [facility] TIME, PT (Ammir Wilmar Physician) INR 2.37 Above high normal [facility] (Ammir Wilmar Physician) ID Date Data Source [id number] 03/07/2019 12:00:00 AM EST [facility] (Ammir Wil[facility] Physician) Name Value Range Interpretation Description Data Sup porting Code Source(s) Document(s ) GLUCOSE 108 Normal (applies [facility] NONFASTING,SERUM mg/dL to non-numeric (Ammir results) [place] Physician) SODIUM, SERUM 142 Normal (applies [facility] mEq/L to non-numeric (Ammir results) [place] Physician) POTASSIUM, SERUM 4.0 Normal (applies [facility] mEq/L to non-numeric (Ammir results) [place] Physician) CHLORIDE, SERUM 107 Normal (applies [facility] mEq/L to non-numeric (Ammir results) [place] Physician) Carbon dioxide 26 mEq/L Normal (applies [facility] [VFr/PPres] in to non-numeric (Ammir Gas delivery results) [facility] system Physician) Anion gap in 13 mEq/L Normal (applies [facility] Body fluid to non-numeric (Ammir results) [place] Physician) BLOOD UREA 12 mg/dL Normal (applies [facility] NITROGEN to non-numeric (Ammir results) [place] Physician) CREATININE, 0.90 Above high normal [facility] SERUM mg/dL (Ammir Wil[place] Physician) BUN/CREATININE 13.33 Normal (applies [facility] RATIO to non-numeric (Ammir results) [place] Physician) CALCIUM, SERUM 9.9 Normal (applies [facility] mg/dL to non-numeric (Ammir results) [place] Physician) TOTAL PROTEIN 6.9 g/dL Normal (applies [facility] to non-numeric (Ammir results) [place] Physician) Microalbumin 4.7 g/dL Normal (applies [facility] [Mass/time] in to non-numeric (Ammir Urine collected results) [place] for unspecified Physician) duration Globulin 2.2 gldl Normal (applies [facility] [Mass/time] in to non-numeric (Ammir 24 hour Urine results) [place] Physician) A/G RATIO 2.14 Above high normal [facility] g/dl (Ammir [facility] Physician) BILIRUBIN, TOTAL 1.1 Normal (applies [facility] mg/dL to non-numeric (Ammir results) [place] Physician) ALKALINE 89 U/L Normal (applies [facility] PHOSPHATASE, ALP to non-numeric (Ammir results) [place] Physician) ALT (SGPT) 20 U/L Normal (applies [facility] to non-numeric (Ammir results) [place] Physician) AST 37 U/L Above high normal [facility] (Ammir [facility] Physician) EGFR NON AFR 63 Normal (applies [facility] SOMALI mL/min/1 to non-numeric (Ammir .73m2 results) [place] Physician) EGFR AFR 76 Normal (applies [facility] SOMALI mL/min/1 to non-numeric (Ammir .73m2 results) [place] Physician) ID Date Data Source [id number] 12/28/2018 12:00:00 AM EDT [facility] (Ammir Wilmar Physician) Name Value Range Interpretation Description Data Sup porting Code Source(s) Document(s ) Cholesterol 199 Normal (applies [facility] [Moles/volume] mg/dL to non-numeric (Ammir in Pericardial results) [place] fluid Physician) LDL CALCULATION 94.6 Normal (applies [facility] mg/dL to non-numeric (Ammir results) [place] Physician) CHOL/HDL RATIO 2.29 Normal (applies [facility] ratio to non-numeric (Ammir results) [place] Physician) HDL CHOLESTEROL 87 mg/dL Normal (applies [facility] to non-numeric (Ammir results) [place] Physician) VLDL CALCULATION 17.4 Normal (applies [facility] mg/dl to non-numeric (Ammir results) [place] Physician) TRIGLYCERIDES 87 mg/dL Normal (applies [facility] to non-numeric (Ammir results) [place] Physician) ID Date Data Source [id number] 12/28/2018 12:00:00 AM EDT [facility] (Ammir Wilmar Physician) Name Value Range Interpretation Description Data Sup porting Code Source(s) Document(s ) T4 FREE, 1.53 Normal (applies to [facility] THYROXINE ng/dL non-numeric (Ammir results) [place] Physician) TSH,3RD 2.87 Normal (applies to [facility] GENERATION uIU/mL non-numeric (Ammir results) [place] Physician) ID Date Data Source [id number] 12/28/2018 12:00:00 AM EDT [facility] (Ammir Wilmar Physician) Name Value Range Interpretation Description Data Sup porting Code Source(s) Document(s ) Ferritin 57.8 Normal (applies to [facility] (Amm ir [Interpretat ng/mL non-numeric [place] ion] in results) Physician) Blood ID Date Data Source [id number] 12/28/2018 12:00:00 AM EDT [facility] (Ammir Wilmar Physician) Name Value Range Interpretation Description Data Sup porting Code Source(s) Document(s ) Transferrin 312 mg/dL Normal (applies [facility] [Mass/time] in to non-numeric (Ammir 24 hour Urine results) [place] Physician) TIBC 437.5 Normal (applies [facility] ug/dL to non-numeric (Ammir results) [place] Physician) UIBC 371.5 Normal (applies [facility] ug/dL to non-numeric (Ammir results) [place] Physician) %SATURATION 15.1 % Normal (applies [facility] to non-numeric (Ammir results) [place] Physician) ID Date Data Source [id number] 12/28/2018 12:00:00 AM EDT [facility] (Ammir Wilmar Physician) Name Value Range Interpretation Description Data Sup porting Code Source(s) Document(s ) WBC 5.8 Normal (applies [facility] 10(3)/uL to non-numeric (Ammir results) [place] Physician) RBC 4.6 Normal (applies [facility] 10(6)/uL to non-numeric (Ammir results) [place] Physician) Hemoglobin 14.3 g/dL Normal (applies [facility] [Mass/volume] to non-numeric (Ammir in Mixed venous results) [place] blood by Physician) Oximetry Hematocrit 42.2 % Normal (applies [facility] [Pure volume to non-numeric (Ammir fraction] of results) [place] Blood by Physician) Automated count MCV 91.1 fL Normal (applies [facility] to non-numeric (Ammir results) [place] Physician) MCH 31 pg Normal (applies [facility] to non-numeric (Ammir results) [place] Physician) MCHC 34 g/dL Normal (applies [facility] to non-numeric (Ammir results) [place] Physician) RDWSD 42.8 fL Normal (applies [facility] to non-numeric (Ammir results) [place] Physician) RDWCV 13.1 % Normal (applies [facility] to non-numeric (Ammir results) [place] Physician) Platelet Count 220 Normal (applies [facility] 10(3)/uL to non-numeric (Ammir results) [place] Physician) MPV 11.1 fL Normal (applies [facility] to non-numeric (Ammir results) [place] Physician) Neutrophil Abs 3.18 Normal (applies [facility] 10(3)/uL to non-numeric (Ammir results) [place] Physician) Lymphocyte Abs 1.64 Normal (applies [facility] 10(3)/uL to non-numeric (Ammir results) [place] Physician) Monocyte Abs 0.87 Normal (applies [facility] 10(3)/uL to non-numeric (Ammir results) [place] Physician) Eosinophil Abs 0.07 Normal (applies [facility] 10(3)/uL to non-numeric (Ammir results) [place] Physician) Basophil Abs 0.03 Normal (applies [facility] 10(3)/uL to non-numeric (Ammir results) [place] Physician) Immature 0.02 Normal (applies [facility] Granulocyte Abs 10(3)/uL to non-numeric (Ammir results) [place] Physician) Neutrophil % 55.00 % Normal (applies [facility] to non-numeric (Ammir results) [place] Physician) Lymphocyte % 28 % Normal (applies [facility] to non-numeric (Ammir results) [place] Physician) Monocyte % 15.0 % Above high normal [facility] (Ammir Wil[facility] Physician) Eosinophil % 1.2 % Normal (applies [facility] to non-numeric (Ammir results) [place] Physician) Basophil % 0.5 % Normal (applies [facility] to non-numeric (Ammir results) [place] Physician) Immature 0.30 % Normal (applies [facility] Granulocyte % to non-numeric (Ammir results) [place] Physician) NRBC % 0.0 % Normal (applies [facility] to non-numeric (Ammir results) [place] Physician) NRBC Abs 0.00 Normal (applies [facility] 10(3)/uL to non-numeric (Ammir results) [place] Physician) ID Date Data Source [id number] 12/28/2018 12:00:00 AM EDT [facility] (Ammir Wilmar Physician) Name Value Range Interpretation Description Data Sup porting Code Source(s) Document(s ) FOLATE SERUM 10.8 Normal (applies to [facility] ( Ammir ng/mL non-numeric [place] results) Physician) VITAMIN B12 621 pg/mL Normal (applies to [facility] (A mmir non-numeric [place] results) Physician) ID Date Data Source [id number] 12/28/2018 12:00:00 AM EDT [facility] (Ammir [facility] Physician) Name Value Range Interpretation Description Data Sup porting Code Source(s) Document(s ) VITAMIN D 22.57 Below low normal [facility] (Ammir 25-HYDROXY ng/mL [facility] Physician) ID Date Data Source [id number] 12/28/2018 12:00:00 AM EDT [facility] (Ammir Wil[facility] Physician) Name Value Range Interpretation Code Description Data Ning rce(s) Supporting Document(s ) IRON, 66 ug/dL Normal (applies to [facility] (Amm ir TOTAL non-numeric [place] results) Physician) ID Date Data Source [id number] 12/28/2018 12:00:00 AM EDT [facility] (Ammir [facility] Physician) Name Value Range Interpretation Description Data Sup porting Code Source(s) Document(s ) GLUCOSE 78 mg/dL Normal (applies [facility] NONFASTING,SERUM to non-numeric (Ammir results) [place] Physician) SODIUM, SERUM 138 Normal (applies [facility] mEq/L to non-numeric (Ammir results) [place] Physician) POTASSIUM, SERUM 4.0 Normal (applies [facility] mEq/L to non-numeric (Ammir results) [place] Physician) CHLORIDE, SERUM 103 Normal (applies [facility] mEq/L to non-numeric (Ammir results) [place] Physician) Carbon dioxide 26 mEq/L Normal (applies [facility] [VFr/PPres] in to non-numeric (Ammir Gas delivery results) [place] system Physician) Anion gap in 13 mEq/L Normal (applies [facility] Body fluid to non-numeric (Ammir results) [place] Physician) BLOOD UREA 10 mg/dL Normal (applies [facility] NITROGEN to non-numeric (Ammir results) [place] Physician) CREATININE, 0.90 Above high normal [facility] SERUM mg/dL (Ammir Wil[facility] Physician) BUN/CREATININE 11.11 Normal (applies [facility] RATIO to non-numeric (Ammir results) [place] Physician) CALCIUM, SERUM 9.5 Normal (applies [facility] mg/dL to non-numeric (Ammir results) [place] Physician) TOTAL PROTEIN 7.3 g/dL Normal (applies [facility] to non-numeric (Ammir results) [place] Physician) Microalbumin 4.7 g/dL Normal (applies [facility] [Mass/time] in to non-numeric (Ammir Urine collected results) [place] for unspecified Physician) duration Globulin 2.6 gldl Normal (applies [facility] [Mass/time] in to non-numeric (Ammir 24 hour Urine results) [place] Physician) A/G RATIO 1.81 Normal (applies [facility] g/dl to non-numeric (Ammir results) [place] Physician) BILIRUBIN, TOTAL 1.6 Above high normal [facility] N mg/dL (Ammir [place] Physician) ALKALINE 101 U/L Normal (applies [facility] PHOSPHATASE, ALP to non-numeric (Ammir results) [place] Physician) ALT (SGPT) 17 U/L Normal (applies [facility] to non-numeric (Ammir results) [place] Physician) AST 31 U/L Normal (applies [facility] to non-numeric (Ammir results) [place] Physician) EGFR NON AFR 63 Normal (applies [facility] SOMALI mL/min/1 to non-numeric (Ammir .73m2 results) [place] Physician) EGFR AFR 76 Normal (applies [facility] SOMALI mL/min/1 to non-numeric (Ammir .73m2 results) [place] Physician) ID Date Data Source [id number] 12/28/2018 12:00:00 AM EDT [facility] (Ammir [facility] Physician) Name Value Range Interpretation Description Data Sup porting Code Source(s) Document(s ) Cholesterol 199 Normal (applies [facility] [Moles/volume] mg/dL to non-numeric (Ammir in Pericardial results) [place] fluid Physician) LDL CALCULATION 94.6 Normal (applies [facility] mg/dL to non-numeric (Ammir results) [place] Physician) CHOL/HDL RATIO 2.29 Normal (applies [facility] ratio to non-numeric (Ammir results) [place] Physician) HDL CHOLESTEROL 87 mg/dL Normal (applies [facility] to non-numeric (Ammir results) [place] Physician) VLDL CALCULATION 17.4 Normal (applies [facility] mg/dl to non-numeric (Ammir results) [place] Physician) TRIGLYCERIDES 87 mg/dL Normal (applies [facility] to non-numeric (Ammir results) [place] Physician) ID Date Data Source [id number] 12/28/2018 12:00:00 AM EDT [facility] (Ammir Wilmar Physician) Name Value Range Interpretation Description Data Sup porting Code Source(s) Document(s ) T4 FREE, 1.53 Normal (applies to [facility] THYROXINE ng/dL non-numeric (Ammir results) [place] Physician) TSH,3RD 2.87 Normal (applies to [facility] GENERATION uIU/mL non-numeric (Ammir results) [place] Physician) ID Date Data Source [id number] 12/28/2018 12:00:00 AM EDT [facility] (Ammir Wilmar Physician) Name Value Range Interpretation Description Data Sup porting Code Source(s) Document(s ) Ferritin 57.8 Normal (applies to [facility] (Amm ir [Interpretat ng/mL non-numeric [place] ion] in results) Physician) Blood ID Date Data Source [id number] 12/28/2018 12:00:00 AM EDT [facility] (Ammir [facility] Physician) Name Value Range Interpretation Description Data Sup porting Code Source(s) Document(s ) Transferrin 312 mg/dL Normal (applies [facility] [Mass/time] in to non-numeric (Ammir 24 hour Urine results) [place] Physician) TIBC 437.5 Normal (applies [facility] ug/dL to non-numeric (Ammir results) [place] Physician) UIBC 371.5 Normal (applies [facility] ug/dL to non-numeric (Ammir results) [place] Physician) %SATURATION 15.1 % Normal (applies [facility] to non-numeric (Ammir results) [place] Physician) ID Date Data Source [id number] 12/28/2018 12:00:00 AM EDT [facility] (Ammir Wilmar Physician) Name Value Range Interpretation Description Data Sup porting Code Source(s) Document(s ) WBC 5.8 Normal (applies [facility] 10(3)/uL to non-numeric (Ammir results) [place] Physician) RBC 4.6 Normal (applies [facility] 10(6)/uL to non-numeric (Ammir results) [place] Physician) Hemoglobin 14.3 g/dL Normal (applies [facility] [Mass/volume] to non-numeric (Ammir in Mixed venous results) [place] blood by Physician) Oximetry Hematocrit 42.2 % Normal (applies [facility] [Pure volume to non-numeric (Ammir fraction] of results) [place] Blood by Physician) Automated count MCV 91.1 fL Normal (applies [facility] to non-numeric (Ammir results) [place] Physician) MCH 31 pg Normal (applies [facility] to non-numeric (Ammir results) [place] Physician) MCHC 34 g/dL Normal (applies [facility] to non-numeric (Ammir results) [place] Physician) RDWSD 42.8 fL Normal (applies [facility] to non-numeric (Ammir results) [place] Physician) RDWCV 13.1 % Normal (applies [facility] to non-numeric (Ammir results) [place] Physician) Platelet Count 220 Normal (applies [facility] 10(3)/uL to non-numeric (Ammir results) [place] Physician) MPV 11.1 fL Normal (applies [facility] to non-numeric (Ammir results) [place] Physician) Neutrophil Abs 3.18 Normal (applies [facility] 10(3)/uL to non-numeric (Ammir results) [place] Physician) Lymphocyte Abs 1.64 Normal (applies [facility] 10(3)/uL to non-numeric (Ammir results) [place] Physician) Monocyte Abs 0.87 Normal (applies [facility] 10(3)/uL to non-numeric (Ammir results) [place] Physician) Eosinophil Abs 0.07 Normal (applies [facility] 10(3)/uL to non-numeric (Ammir results) [place] Physician) Basophil Abs 0.03 Normal (applies [facility] 10(3)/uL to non-numeric (Ammir results) [place] Physician) Immature 0.02 Normal (applies [facility] Granulocyte Abs 10(3)/uL to non-numeric (Ammir results) [place] Physician) Neutrophil % 55.00 % Normal (applies [facility] to non-numeric (Ammir results) [place] Physician) Lymphocyte % 28 % Normal (applies [facility] to non-numeric (Ammir results) [place] Physician) Monocyte % 15.0 % Above high normal [facility] (Ammir [place] Physician) Eosinophil % 1.2 % Normal (applies [facility] to non-numeric (Ammir results) [place] Physician) Basophil % 0.5 % Normal (applies [facility] to non-numeric (Ammir results) [place] Physician) Immature 0.30 % Normal (applies [facility] Granulocyte % to non-numeric (Ammir results) [place] Physician) NRBC % 0.0 % Normal (applies [facility] to non-numeric (Ammir results) [place] Physician) NRBC Abs 0.00 Normal (applies [facility] 10(3)/uL to non-numeric (Ammir results) [place] Physician) ID Date Data Source [id number] 12/28/2018 12:00:00 AM EDT [facility] (Ammir [facility] Physician) Name Value Range Interpretation Description Data Sup porting Code Source(s) Document(s ) FOLATE SERUM 10.8 Normal (applies to [facility] ( Ammir ng/mL non-numeric [place] results) Physician) VITAMIN B12 621 pg/mL Normal (applies to [facility] (A mmir non-numeric [place] results) Physician) ID Date Data Source [id number] 12/28/2018 12:00:00 AM EDT [facility] (Ammir [facility] Physician) Name Value Range Interpretation Description Data Sup porting Code Source(s) Document(s ) VITAMIN D 22.57 Below low normal [facility] (Ammir 25-HYDROXY ng/mL [place] Physician) ID Date Data Source [id number] 12/28/2018 12:00:00 AM EDT [facility] (Ammir [facility] Physician) Name Value Range Interpretation Code Description Data Ning rce(s) Supporting Document(s ) IRON, 66 ug/dL Normal (applies to [facility] (Amm ir TOTAL non-numeric [place] results) Physician) ID Date Data Source [id number] 12/28/2018 12:00:00 AM EDT [facility] (Ammir [facility] Physician) Name Value Range Interpretation Description Data Sup porting Code Source(s) Document(s ) GLUCOSE 78 mg/dL Normal (applies [facility] NONFASTING,SERUM to non-numeric (Ammir results) [place] Physician) SODIUM, SERUM 138 Normal (applies [facility] mEq/L to non-numeric (Ammir results) [place] Physician) POTASSIUM, SERUM 4.0 Normal (applies [facility] mEq/L to non-numeric (Ammir results) [place] Physician) CHLORIDE, SERUM 103 Normal (applies [facility] mEq/L to non-numeric (Ammir results) [place] Physician) Carbon dioxide 26 mEq/L Normal (applies [facility] [VFr/PPres] in to non-numeric (Ammir Gas delivery results) [place] system Physician) Anion gap in 13 mEq/L Normal (applies [facility] Body fluid to non-numeric (Ammir results) [place] Physician) BLOOD UREA 10 mg/dL Normal (applies [facility] NITROGEN to non-numeric (Ammir results) [place] Physician) CREATININE, 0.90 Above high normal [facility] SERUM mg/dL (Ammir [place] Physician) BUN/CREATININE 11.11 Normal (applies [facility] RATIO to non-numeric (Ammir results) [place] Physician) CALCIUM, SERUM 9.5 Normal (applies [facility] mg/dL to non-numeric (Ammir results) [place] Physician) TOTAL PROTEIN 7.3 g/dL Normal (applies [facility] to non-numeric (Ammir results) [place] Physician) Microalbumin 4.7 g/dL Normal (applies [facility] [Mass/time] in to non-numeric (Ammir Urine collected results) [place] for unspecified Physician) duration Globulin 2.6 gldl Normal (applies [facility] [Mass/time] in to non-numeric (Ammir 24 hour Urine results) [place] Physician) A/G RATIO 1.81 Normal (applies [facility] g/dl to non-numeric (Ammir results) [place] Physician) BILIRUBIN, TOTAL 1.6 Above high normal [facility] N mg/dL (Ammir [place] Physician) ALKALINE 101 U/L Normal (applies [facility] PHOSPHATASE, ALP to non-numeric (Ammir results) [place] Physician) ALT (SGPT) 17 U/L Normal (applies [facility] to non-numeric (Ammir results) [place] Physician) AST 31 U/L Normal (applies [facility] to non-numeric (Ammir results) [place] Physician) EGFR NON AFR 63 Normal (applies [facility] SOMALI mL/min/1 to non-numeric (Ammir .73m2 results) [place] Physician) EGFR AFR 76 Normal (applies [facility] SOMALI mL/min/1 to non-numeric (Ammir .73m2 results) [place] Physician) ID Date Data Source [id number] 12/28/2018 12:00:00 AM EDT [facility] (Ammir [facility] Physician) Name Value Range Interpretation Description Data Sup porting Code Source(s) Document(s ) Cholesterol 199 Normal (applies [facility] [Moles/volume] mg/dL to non-numeric (Ammir in Pericardial results) [place] fluid Physician) LDL CALCULATION 94.6 Normal (applies [facility] mg/dL to non-numeric (Ammir results) [place] Physician) CHOL/HDL RATIO 2.29 Normal (applies [facility] ratio to non-numeric (Ammir results) [place] Physician) HDL CHOLESTEROL 87 mg/dL Normal (applies [facility] to non-numeric (Ammir results) [place] Physician) VLDL CALCULATION 17.4 Normal (applies [facility] mg/dl to non-numeric (Ammir results) [place] Physician) TRIGLYCERIDES 87 mg/dL Normal (applies [facility] to non-numeric (Ammir results) [place] Physician) ID Date Data Source [id number] 12/28/2018 12:00:00 AM EDT [facility] (Ammir [facility] Physician) Name Value Range Interpretation Description Data Sup porting Code Source(s) Document(s ) T4 FREE, 1.53 Normal (applies to [facility] THYROXINE ng/dL non-numeric (Ammir results) [place] Physician) TSH,3RD 2.87 Normal (applies to [facility] GENERATION uIU/mL non-numeric (Ammir results) [place] Physician) ID Date Data Source [id number] 12/28/2018 12:00:00 AM EDT [facility] (Ammir [facility] Physician) Name Value Range Interpretation Description Data Sup porting Code Source(s) Document(s ) Ferritin 57.8 Normal (applies to [facility] (Amm ir [Interpretat ng/mL non-numeric [place] ion] in results) Physician) Blood ID Date Data Source [id number] 12/28/2018 12:00:00 AM EDT [facility] (Ammir [facility] Physician) Name Value Range Interpretation Description Data Sup porting Code Source(s) Document(s ) Transferrin 312 mg/dL Normal (applies [facility] [Mass/time] in to non-numeric (Ammir 24 hour Urine results) [place] Physician) TIBC 437.5 Normal (applies [facility] ug/dL to non-numeric (Ammir results) [place] Physician) UIBC 371.5 Normal (applies [facility] ug/dL to non-numeric (Ammir results) [place] Physician) %SATURATION 15.1 % Normal (applies [facility] to non-numeric (Ammir results) [place] Physician) ID Date Data Source [id number] 12/28/2018 12:00:00 AM EDT [facility] (Ammir [facility] Physician) Name Value Range Interpretation Description Data Sup porting Code Source(s) Document(s ) WBC 5.8 Normal (applies [facility] 10(3)/uL to non-numeric (Ammir results) [place] Physician) RBC 4.6 Normal (applies [facility] 10(6)/uL to non-numeric (Ammir results) [place] Physician) Hemoglobin 14.3 g/dL Normal (applies [facility] [Mass/volume] to non-numeric (Ammir in Mixed venous results) [place] blood by Physician) Oximetry Hematocrit 42.2 % Normal (applies [facility] [Pure volume to non-numeric (Ammir fraction] of results) [facility] Blood by Physician) Automated count MCV 91.1 fL Normal (applies [facility] to non-numeric (Ammir results) [place] Physician) MCH 31 pg Normal (applies [facility] to non-numeric (Ammir results) [place] Physician) MCHC 34 g/dL Normal (applies [facility] to non-numeric (Ammir results) [place] Physician) RDWSD 42.8 fL Normal (applies [facility] to non-numeric (Ammir results) [place] Physician) RDWCV 13.1 % Normal (applies [facility] to non-numeric (Ammir results) [place] Physician) Platelet Count 220 Normal (applies [facility] 10(3)/uL to non-numeric (Ammir results) [place] Physician) MPV 11.1 fL Normal (applies [facility] to non-numeric (Ammir results) [place] Physician) Neutrophil Abs 3.18 Normal (applies [facility] 10(3)/uL to non-numeric (Ammir results) [place] Physician) Lymphocyte Abs 1.64 Normal (applies [facility] 10(3)/uL to non-numeric (Ammir results) [place] Physician) Monocyte Abs 0.87 Normal (applies [facility] 10(3)/uL to non-numeric (Ammir results) [place] Physician) Eosinophil Abs 0.07 Normal (applies [facility] 10(3)/uL to non-numeric (Ammir results) [place] Physician) Basophil Abs 0.03 Normal (applies [facility] 10(3)/uL to non-numeric (Ammir results) [place] Physician) Immature 0.02 Normal (applies [facility] Granulocyte Abs 10(3)/uL to non-numeric (Ammir results) [place] Physician) Neutrophil % 55.00 % Normal (applies [facility] to non-numeric (Ammir results) [place] Physician) Lymphocyte % 28 % Normal (applies [facility] to non-numeric (Ammir results) [place] Physician) Monocyte % 15.0 % Above high normal [facility] (Ammir [place] Physician) Eosinophil % 1.2 % Normal (applies [facility] to non-numeric (Ammir results) [place] Physician) Basophil % 0.5 % Normal (applies [facility] to non-numeric (Ammir results) [place] Physician) Immature 0.30 % Normal (applies [facility] Granulocyte % to non-numeric (Ammir results) [place] Physician) NRBC % 0.0 % Normal (applies [facility] to non-numeric (Ammir results) [place] Physician) NRBC Abs 0.00 Normal (applies [facility] 10(3)/uL to non-numeric (Ammir results) [place] Physician) ID Date Data Source [id number] 12/28/2018 12:00:00 AM EDT [facility] (Ammir [place] Physician) Name Value Range Interpretation Description Data Sup porting Code Source(s) Document(s ) FOLATE SERUM 10.8 Normal (applies to [facility] ( Ammir ng/mL non-numeric [place] results) Physician) VITAMIN B12 621 pg/mL Normal (applies to [facility] (A mmir non-numeric [place] results) Physician) ID Date Data Source [id number] 12/28/2018 12:00:00 AM EDT [facility] (Ammir [place] Physician) Name Value Range Interpretation Description Data Sup porting Code Source(s) Document(s ) VITAMIN D 22.57 Below low normal [facility] (Ammir 25-HYDROXY ng/mL [place] Physician) ID Date Data Source [id number] 12/28/2018 12:00:00 AM EDT [facility] (Ammir [place] Physician) Name Value Range Interpretation Code Description Data Ning rce(s) Supporting Document(s ) IRON, 66 ug/dL Normal (applies to [facility] (Amm ir TOTAL non-numeric [place] results) Physician) ID Date Data Source [id number] 12/28/2018 12:00:00 AM EDT [facility] (Ammir [place] Physician) Name Value Range Interpretation Description Data Sup porting Code Source(s) Document(s ) GLUCOSE 78 mg/dL Normal (applies [facility] NONFASTING,SERUM to non-numeric (Ammir results) [place] Physician) SODIUM, SERUM 138 Normal (applies [facility] mEq/L to non-numeric (Ammir results) [place] Physician) POTASSIUM, SERUM 4.0 Normal (applies [facility] mEq/L to non-numeric (Ammir results) [place] Physician) CHLORIDE, SERUM 103 Normal (applies [facility] mEq/L to non-numeric (Ammir results) [place] Physician) Carbon dioxide 26 mEq/L Normal (applies [facility] [VFr/PPres] in to non-numeric (Ammir Gas delivery results) [place] system Physician) Anion gap in 13 mEq/L Normal (applies [facility] Body fluid to non-numeric (Ammir results) [place] Physician) BLOOD UREA 10 mg/dL Normal (applies [facility] NITROGEN to non-numeric (Ammir results) [place] Physician) CREATININE, 0.90 Above high normal [facility] SERUM mg/dL (Ammir [place] Physician) BUN/CREATININE 11.11 Normal (applies [facility] RATIO to non-numeric (Ammir results) [place] Physician) CALCIUM, SERUM 9.5 Normal (applies [facility] mg/dL to non-numeric (Ammir results) [facility] Physician) TOTAL PROTEIN 7.3 g/dL Normal (applies [facility] to non-numeric (Ammir results) [facility] Physician) Microalbumin 4.7 g/dL Normal (applies [facility] [Mass/time] in to non-numeric (Ammir Urine collected results) [place] for unspecified Physician) duration Globulin 2.6 gldl Normal (applies [facility] [Mass/time] in to non-numeric (Ammir 24 hour Urine results) [place] Physician) A/G RATIO 1.81 Normal (applies [facility] g/dl to non-numeric (Ammir results) [place] Physician) BILIRUBIN, TOTAL 1.6 Above high normal [facility] N mg/dL (Ammir [place] Physician) ALKALINE 101 U/L Normal (applies [facility] PHOSPHATASE, ALP to non-numeric (Ammir results) [place] Physician) ALT (SGPT) 17 U/L Normal (applies [facility] to non-numeric (Ammir results) [place] Physician) AST 31 U/L Normal (applies [facility] to non-numeric (Ammir results) [place] Physician) EGFR NON AFR 63 Normal (applies [facility] SOMALI mL/min/1 to non-numeric (Ammir .73m2 results) [place] Physician) EGFR AFR 76 Normal (applies [facility] SOMALI mL/min/1 to non-numeric (Ammir .73m2 results) [place] Physician) ID Date Data Source [id number] 12/28/2018 12:00:00 AM EDT [facility] ([facility] Physician) Name Value Range Interpretation Description Data Sup porting Code Source(s) Document(s ) Cholesterol 199 Normal (applies [facility] [Moles/volume] mg/dL to non-numeric (Ammir in Pericardial results) [place] fluid Physician) LDL CALCULATION 94.6 Normal (applies [facility] mg/dL to non-numeric (Ammir results) [place] Physician) CHOL/HDL RATIO 2.29 Normal (applies [facility] ratio to non-numeric (Ammir results) [place] Physician) HDL CHOLESTEROL 87 mg/dL Normal (applies [facility] to non-numeric (Ammir results) [place] Physician) VLDL CALCULATION 17.4 Normal (applies [facility] mg/dl to non-numeric (Ammir results) [place] Physician) TRIGLYCERIDES 87 mg/dL Normal (applies [facility] to non-numeric (Ammir results) [place] Physician) ID Date Data Source [id number] 12/28/2018 12:00:00 AM EDT [facility] ([facility] Physician) Name Value Range Interpretation Description Data Sup porting Code Source(s) Document(s ) T4 FREE, 1.53 Normal (applies to [facility] THYROXINE ng/dL non-numeric (Ammir results) [place] Physician) TSH,3RD 2.87 Normal (applies to [facility] GENERATION uIU/mL non-numeric (Ammir results) [place] Physician) ID Date Data Source [id number] 12/28/2018 12:00:00 AM EDT [facility] ([facility] Physician) Name Value Range Interpretation Description Data Sup porting Code Source(s) Document(s ) Ferritin 57.8 Normal (applies to [facility] (Amm ir [Interpretat ng/mL non-numeric [place] ion] in results) Physician) Blood ID Date Data Source [id number] 12/28/2018 12:00:00 AM EDT [facility] ([facility] Physician) Name Value Range Interpretation Description Data Sup porting Code Source(s) Document(s ) Transferrin 312 mg/dL Normal (applies [facility] [Mass/time] in to non-numeric (Ammir 24 hour Urine results) [place] Physician) TIBC 437.5 Normal (applies [facility] ug/dL to non-numeric (Ammir results) [place] Physician) UIBC 371.5 Normal (applies [facility] ug/dL to non-numeric (Ammir results) [place] Physician) %SATURATION 15.1 % Normal (applies [facility] to non-numeric (Ammir results) [place] Physician) ID Date Data Source [id number] 12/28/2018 12:00:00 AM EDT [facility] ([facility] Physician) Name Value Range Interpretation Description Data Sup porting Code Source(s) Document(s ) WBC 5.8 Normal (applies [facility] 10(3)/uL to non-numeric (Ammir results) [place] Physician) RBC 4.6 Normal (applies [facility] 10(6)/uL to non-numeric (Ammir results) [place] Physician) Hemoglobin 14.3 g/dL Normal (applies [facility] [Mass/volume] to non-numeric (Ammir in Mixed venous results) [place] blood by Physician) Oximetry Hematocrit 42.2 % Normal (applies [facility] [Pure volume to non-numeric (Ammir fraction] of results) [place] Blood by Physician) Automated count MCV 91.1 fL Normal (applies [facility] to non-numeric (Ammir results) [place] Physician) MCH 31 pg Normal (applies [facility] to non-numeric (Ammir results) [place] Physician) MCHC 34 g/dL Normal (applies [facility] to non-numeric (Ammir results) [place] Physician) RDWSD 42.8 fL Normal (applies [facility] to non-numeric (Ammir results) [place] Physician) RDWCV 13.1 % Normal (applies [facility] to non-numeric (Ammir results) [place] Physician) Platelet Count 220 Normal (applies [facility] 10(3)/uL to non-numeric (Ammir results) [place] Physician) MPV 11.1 fL Normal (applies [facility] to non-numeric (Ammir results) [place] Physician) Neutrophil Abs 3.18 Normal (applies [facility] 10(3)/uL to non-numeric (Ammir results) [place] Physician) Lymphocyte Abs 1.64 Normal (applies [facility] 10(3)/uL to non-numeric (Ammir results) [place] Physician) Monocyte Abs 0.87 Normal (applies [facility] 10(3)/uL to non-numeric (Ammir results) [place] Physician) Eosinophil Abs 0.07 Normal (applies [facility] 10(3)/uL to non-numeric (Ammir results) [place] Physician) Basophil Abs 0.03 Normal (applies [facility] 10(3)/uL to non-numeric (Ammir results) [place] Physician) Immature 0.02 Normal (applies [facility] Granulocyte Abs 10(3)/uL to non-numeric (Ammir results) [place] Physician) Neutrophil % 55.00 % Normal (applies [facility] to non-numeric (Ammir results) [place] Physician) Lymphocyte % 28 % Normal (applies [facility] to non-numeric (Ammir results) [place] Physician) Monocyte % 15.0 % Above high normal [facility] ([facility]mmir [place] Physician) Eosinophil % 1.2 % Normal (applies [facility] to non-numeric (Ammir results) [place] Physician) Basophil % 0.5 % Normal (applies [facility] to non-numeric (Ammir results) [place] Physician) Immature 0.30 % Normal (applies [facility] Granulocyte % to non-numeric (Ammir results) [place] Physician) NRBC % 0.0 % Normal (applies [facility] to non-numeric (Ammir results) [place] Physician) NRBC Abs 0.00 Normal (applies [facility] 10(3)/uL to non-numeric (Ammir results) [place] Physician) ID Date Data Source [id number] 12/28/2018 12:00:00 AM EDT [facility] ([facility] Physician) Name Value Range Interpretation Description Data Sup porting Code Source(s) Document(s ) FOLATE SERUM 10.8 Normal (applies to [facility] ( Ammir ng/mL non-numeric [place] results) Physician) VITAMIN B12 621 pg/mL Normal (applies to [facility] (A mmir non-numeric [place] results) Physician) ID Date Data Source [id number] 12/28/2018 12:00:00 AM EDT [facility] ([facility] Physician) Name Value Range Interpretation Description Data Sup porting Code Source(s) Document(s ) VITAMIN D 22.57 Below low normal [facility] (Ammir 25-HYDROXY ng/mL [place] Physician) ID Date Data Source [id number] 12/28/2018 12:00:00 AM EDT [facility] ([facility] Physician) Name Value Range Interpretation Code Description Data Ning rce(s) Supporting Document(s ) IRON, 66 ug/dL Normal (applies to [facility] (Amm ir TOTAL non-numeric [place] results) Physician) ID Date Data Source [id number] 12/28/2018 12:00:00 AM EDT [facility] ([facility] Physician) Name Value Range Interpretation Description Data Sup porting Code Source(s) Document(s ) GLUCOSE 78 mg/dL Normal (applies [facility] NONFASTING,SERUM to non-numeric (Ammir results) [place] Physician) SODIUM, SERUM 138 Normal (applies [facility] mEq/L to non-numeric (Ammir results) [place] Physician) POTASSIUM, SERUM 4.0 Normal (applies [facility] mEq/L to non-numeric (Ammir results) [place] Physician) CHLORIDE, SERUM 103 Normal (applies [facility] mEq/L to non-numeric (Ammir results) [place] Physician) Carbon dioxide 26 mEq/L Normal (applies [facility] [VFr/PPres] in to non-numeric (Ammir Gas delivery results) [place] system Physician) Anion gap in 13 mEq/L Normal (applies [facility] Body fluid to non-numeric (Ammir results) [place] Physician) BLOOD UREA 10 mg/dL Normal (applies [facility] NITROGEN to non-numeric (Ammir results) [place] Physician) CREATININE, 0.90 Above high normal [facility] SERUM mg/dL (Ammir [place] Physician) BUN/CREATININE 11.11 Normal (applies [facility] RATIO to non-numeric (Ammir results) [place] Physician) CALCIUM, SERUM 9.5 Normal (applies [facility] mg/dL to non-numeric (Ammir results) [place] Physician) TOTAL PROTEIN 7.3 g/dL Normal (applies [facility] to non-numeric (Ammir results) [place] Physician) Microalbumin 4.7 g/dL Normal (applies [facility] [Mass/time] in to non-numeric (Ammir Urine collected results) [place] for unspecified Physician) duration Globulin 2.6 gldl Normal (applies [facility] [Mass/time] in to non-numeric (Ammir 24 hour Urine results) [place] Physician) A/G RATIO 1.81 Normal (applies [facility] g/dl to non-numeric (Ammir results) [place] Physician) BILIRUBIN, TOTAL 1.6 Above high normal [facility] N mg/dL (Ammir [place] Physician) ALKALINE 101 U/L Normal (applies [facility] PHOSPHATASE, ALP to non-numeric (Ammir results) [place] Physician) ALT (SGPT) 17 U/L Normal (applies [facility] to non-numeric (Ammir results) [place] Physician) AST 31 U/L Normal (applies [facility] to non-numeric (Ammir results) [place] Physician) EGFR NON AFR 63 Normal (applies [facility] SOMALI mL/min/1 to non-numeric (Ammir .73m2 results) [place] Physician) EGFR AFR 76 Normal (applies [facility] SOMALI mL/min/1 to non-numeric (Ammir .73m2 results) [place] Physician) ID Date Data Source [id number] 11/02/2018 12:00:00 AM EDT [facility] ([facility] Physician) Name Value Range Interpretation Description Data Sup porting Code Source(s) Document(s ) Cholesterol 217 Above high normal [facility] [Moles/volume] mg/dL (Ammir in Pericardial [place] fluid Physician) LDL CALCULATION 106.2 Normal (applies [facility] mg/dL to non-numeric (Ammir results) [place] Physician) CHOL/HDL RATIO 2.49 Normal (applies [facility] ratio to non-numeric (Ammir results) [place] Physician) HDL CHOLESTEROL 87 mg/dL Normal (applies [facility] to non-numeric (Ammir results) [place] Physician) VLDL CALCULATION 23.8 Normal (applies [facility] mg/dl to non-numeric (Ammir results) [place] Physician) TRIGLYCERIDES 119 Normal (applies [facility] mg/dL to non-numeric (Ammir results) [place] Physician) ID Date Data Source [id number] 11/02/2018 12:00:00 AM EDT [facility] ([facility] Physician) Name Value Range Interpretation Description Data Sup porting Code Source(s) Document(s ) GLUCOSE 71 mg/dL Normal (applies [facility] NONFASTING,SERUM to non-numeric (Ammir results) [place] Physician) SODIUM, SERUM 143 Normal (applies [facility] mEq/L to non-numeric (Ammir results) [place] Physician) POTASSIUM, SERUM 4.5 Normal (applies [facility] mEq/L to non-numeric (Ammir results) [place] Physician) CHLORIDE, SERUM 104 Normal (applies [facility] mEq/L to non-numeric (Ammir results) [place] Physician) Carbon dioxide 25 mEq/L Normal (applies [facility] [VFr/PPres] in to non-numeric (Ammir Gas delivery results) [place] system Physician) Anion gap in 18.5 Above high normal [facility] Body fluid mEq/L (Ammir [place] Physician) BLOOD UREA 14 mg/dL Normal (applies [facility] NITROGEN to non-numeric (Ammir results) [place] Physician) CREATININE, 1.00 Above high normal [facility] SERUM mg/dL (Ammir [place] Physician) BUN/CREATININE 14.00 Normal (applies [facility] RATIO to non-numeric (Ammir results) [place] Physician) CALCIUM, SERUM 9.9 Normal (applies [facility] mg/dL to non-numeric (Ammir results) [place] Physician) TOTAL PROTEIN 7.3 g/dL Normal (applies [facility] to non-numeric (Ammir results) [place] Physician) Microalbumin 4.6 g/dL Normal (applies [facility] [Mass/time] in to non-numeric (Ammir Urine collected results) [place] for unspecified Physician) duration Globulin 2.7 gldl Normal (applies [facility] [Mass/time] in to non-numeric (Ammir 24 hour Urine results) [place] Physician) A/G RATIO 1.70 Normal (applies [facility] g/dl to non-numeric (Ammir results) [place] Physician) BILIRUBIN, TOTAL 1.4 Above high normal [facility] N mg/dL (Ammir [place] Physician) ALKALINE 89 U/L Normal (applies [facility] PHOSPHATASE, ALP to non-numeric (Ammir results) [place] Physician) ALT (SGPT) 16 U/L Normal (applies [facility] to non-numeric (Ammir results) [place] Physician) AST 30 U/L Normal (applies [facility] to non-numeric (Ammir results) [place] Physician) EGFR NON AFR 56 Below low normal [facility] SOMALI mL/min/1 (Ammir .73m2 [place] Physician) EGFR AFR 67 Normal (applies [facility] SOMALI mL/min/1 to non-numeric (Ammir .73m2 results) [place] Physician) ID Date Data Source [id number] 11/02/2018 12:00:00 AM EDT [facility] Name Value Range Interpretation Description Data Sup porting Code Source(s) Document(s ) T4 FREE, 1.33 Normal (applies to [facility] THYROXINE ng/dL non-numeric (Ammir results) [place] Physician) TSH,3RD 2.47 Normal (applies to [facility] GENERATION uIU/mL non-numeric (Ammir results) [place] Physician) ID Date Data Source [id number] 11/02/2018 12:00:00 AM EDT [facility] ([facility]mm[facility] [place] Physician) Name Value Range Interpretation Description Data Sup porting Code Source(s) Document(s ) Ferritin 30.5 Normal (applies to [facility] (Amm ir [Interpretat ng/mL non-numeric [place] ion] in results) Physician) Blood ID Date Data Source [id number] 11/02/2018 12:00:00 AM EDT [facility] ([facility] [place] Physician) Name Value Range Interpretation Description Data Sup porting Code Source(s) Document(s ) Transferrin 366 mg/dL Normal (applies [facility] [Mass/time] in to non-numeric (Ammir 24 hour Urine results) [place] Physician) TIBC 513.2 Above high normal [facility] ug/dL (Ammir [place] Physician) UIBC 405.2 Above high normal [facility] ug/dL (Ammir [place] Physician) %SATURATION 21.0 % Normal (applies [facility] to non-numeric (Ammir results) [place] Physician) ID Date Data Source [id number] 11/02/2018 12:00:00 AM EDT [facility] ([facility]mmir [place] Physician) Name Value Range Interpretation Description Data Sup porting Code Source(s) Document(s ) WBC 6.0 Normal (applies [facility] 10(3)/uL to non-numeric (Ammir results) [place] Physician) RBC 4.5 Normal (applies [facility] 10(6)/uL to non-numeric (Ammir results) [place] Physician) Hemoglobin 13.6 g/dL Normal (applies [facility] [Mass/volume] to non-numeric (Ammir in Mixed venous results) [place] blood by Physician) Oximetry Hematocrit 41.6 % Normal (applies [facility] [Pure volume to non-numeric (Ammir fraction] of results) [place] Blood by Physician) Automated count MCV 92.0 fL Normal (applies [facility] to non-numeric (Ammir results) [place] Physician) MCH 30 pg Normal (applies [facility] to non-numeric (Ammir results) [place] Physician) MCHC 33 g/dL Normal (applies [facility] to non-numeric (Ammir results) [place] Physician) RDWSD 45.8 fL Normal (applies [facility] to non-numeric (Ammir results) [place] Physician) RDWCV 13.8 % Normal (applies [facility] to non-numeric (Ammir results) [place] Physician) Platelet Count 224 Normal (applies [facility] 10(3)/uL to non-numeric (Ammir results) [place] Physician) MPV 11.0 fL Normal (applies [facility] to non-numeric (Ammir results) [place] Physician) Neutrophil Abs 3.22 Normal (applies [facility] 10(3)/uL to non-numeric (Ammir results) [place] Physician) Lymphocyte Abs 2.05 Normal (applies [facility] 10(3)/uL to non-numeric (Ammir results) [place] Physician) Monocyte Abs 0.61 Normal (applies [facility] 10(3)/uL to non-numeric (Ammir results) [place] Physician) Eosinophil Abs 0.06 Normal (applies [facility] 10(3)/uL to non-numeric (Ammir results) [place] Physician) Basophil Abs 0.02 Normal (applies [facility] 10(3)/uL to non-numeric (Ammir results) [place] Physician) Immature 0.02 Normal (applies [facility] Granulocyte Abs 10(3)/uL to non-numeric (Ammir results) [place] Physician) Neutrophil % 53.90 % Normal (applies [facility] to non-numeric (Ammir results) [place] Physician) Lymphocyte % 34 % Normal (applies [facility] to non-numeric (Ammir results) [place] Physician) Monocyte % 10.2 % Normal (applies [facility] to non-numeric (Ammir results) [place] Physician) Eosinophil % 1.0 % Normal (applies [facility] to non-numeric (Ammir results) [place] Physician) Basophil % 0.3 % Normal (applies [facility] to non-numeric (Ammir results) [place] Physician) Immature 0.30 % Normal (applies [facility] Granulocyte % to non-numeric (Ammir results) [place] Physician) NRBC % 0.0 % Normal (applies [facility] to non-numeric (Ammir results) [place] Physician) NRBC Abs 0.00 Normal (applies [facility] 10(3)/uL to non-numeric (Ammir results) [place] Physician) ID Date Data Source [id number] 11/02/2018 12:00:00 AM EDT [facility] ([facility] [place] Physician) Name Value Range Interpretation Description Data Sup porting Code Source(s) Document(s ) FOLATE SERUM 9.9 ng/mL Normal (applies to [facility] ( Ammir non-numeric [place] results) Physician) VITAMIN B12 523 pg/mL Normal (applies to [facility] (A mmir non-numeric [place] results) Physician) ID Date Data Source [id number] 11/02/2018 12:00:00 AM EDT [facility] ([facility] [place] Physician) Name Value Range Interpretation Description Data Sup porting Code Source(s) Document(s ) VITAMIN D 21.79 Below low normal [facility] (Ammir 25-HYDROXY ng/mL [place] Physician) ID Date Data Source [id number] 11/02/2018 12:00:00 AM EDT [facility] ([facility] [place] Physician) Name Value Range Interpretation Code Description Data Supporting Source(s) Document(s ) IRON, 108 ug/dL Normal (applies to [facility] (Amm ir TOTAL non-numeric [place] results) Physician) ID Date Data Source [id number] 11/02/2018 12:00:00 AM EDT [facility] ([facility] [place] Physician) Name Value Range Interpretation Description Data Sup porting Code Source(s) Document(s ) Cholesterol 217 Above high normal [facility] [Moles/volume] mg/dL (Ammir in Pericardial [place] fluid Physician) LDL CALCULATION 106.2 Normal (applies [facility] mg/dL to non-numeric (Ammir results) [place] Physician) CHOL/HDL RATIO 2.49 Normal (applies [facility] ratio to non-numeric (Ammir results) [place] Physician) HDL CHOLESTEROL 87 mg/dL Normal (applies [facility] to non-numeric (Ammir results) [place] Physician) VLDL CALCULATION 23.8 Normal (applies [facility] mg/dl to non-numeric (Ammir results) [place] Physician) TRIGLYCERIDES 119 Normal (applies [facility] mg/dL to non-numeric (Ammir results) [place] Physician) ID Date Data Source [id number] 11/02/2018 12:00:00 AM EDT [facility] ([facility] [place] Physician) Name Value Range Interpretation Description Data Sup porting Code Source(s) Document(s ) GLUCOSE 71 mg/dL Normal (applies [facility] NONFASTING,SERUM to non-numeric (Ammir results) [place] Physician) SODIUM, SERUM 143 Normal (applies [facility] mEq/L to non-numeric (Ammir results) [place] Physician) POTASSIUM, SERUM 4.5 Normal (applies [facility] mEq/L to non-numeric (Ammir results) [place] Physician) CHLORIDE, SERUM 104 Normal (applies [facility] mEq/L to non-numeric (Ammir results) [place] Physician) Carbon dioxide 25 mEq/L Normal (applies [facility] [VFr/PPres] in to non-numeric (Ammir Gas delivery results) [place] system Physician) Anion gap in 18.5 Above high normal [facility] Body fluid mEq/L (Ammir [place] Physician) BLOOD UREA 14 mg/dL Normal (applies [facility] NITROGEN to non-numeric (Ammir results) [place] Physician) CREATININE, 1.00 Above high normal [facility] SERUM mg/dL (Ammir [place] Physician) BUN/CREATININE 14.00 Normal (applies [facility] RATIO to non-numeric (Ammir results) [place] Physician) CALCIUM, SERUM 9.9 Normal (applies [facility] mg/dL to non-numeric (Ammir results) [place] Physician) TOTAL PROTEIN 7.3 g/dL Normal (applies [facility] to non-numeric (Ammir results) [place] Physician) Microalbumin 4.6 g/dL Normal (applies [facility] [Mass/time] in to non-numeric (Ammir Urine collected results) [place] for unspecified Physician) duration Globulin 2.7 gldl Normal (applies [facility] [Mass/time] in to non-numeric (Ammir 24 hour Urine results) [place] Physician) A/G RATIO 1.70 Normal (applies [facility] g/dl to non-numeric (Ammir results) [place] Physician) BILIRUBIN, TOTAL 1.4 Above high normal [facility] N mg/dL (Ammir [place] Physician) ALKALINE 89 U/L Normal (applies [facility] PHOSPHATASE, ALP to non-numeric (Ammir results) [place] Physician) ALT (SGPT) 16 U/L Normal (applies [facility] to non-numeric (Ammir results) [place] Physician) AST 30 U/L Normal (applies [facility] to non-numeric (Ammir results) [place] Physician) EGFR NON AFR 56 Below low normal [facility] SOMALI mL/min/1 (Ammir .73m2 [place] Physician) EGFR AFR 67 Normal (applies [facility] SOMALI mL/min/1 to non-numeric (Ammir .73m2 results) [place] Physician) ID Date Data Source [id number] 11/02/2018 12:00:00 AM EDT [facility] ([facility] [place] Physician) Name Value Range Interpretation Description Data Sup porting Code Source(s) Document(s ) T4 FREE, 1.33 Normal (applies to [facility] THYROXINE ng/dL non-numeric (Ammir results) [place] Physician) TSH,3RD 2.47 Normal (applies to [facility] GENERATION uIU/mL non-numeric (Ammir results) [place] Physician) ID Date Data Source [id number] 11/02/2018 12:00:00 AM EDT [facility] ([facility] [place] Physician) Name Value Range Interpretation Description Data Sup porting Code Source(s) Document(s ) Ferritin 30.5 Normal (applies to [facility] (Amm ir [Interpretat ng/mL non-numeric [place] ion] in results) Physician) Blood ID Date Data Source [id number] 11/02/2018 12:00:00 AM EDT [facility] ([facility] [place] Physician) Name Value Range Interpretation Description Data Sup porting Code Source(s) Document(s ) Transferrin 366 mg/dL Normal (applies [facility] [Mass/time] in to non-numeric (Ammir 24 hour Urine results) [place] Physician) TIBC 513.2 Above high normal [facility] ug/dL (Ammir [place] Physician) UIBC 405.2 Above high normal [facility] ug/dL (Ammir [place] Physician) %SATURATION 21.0 % Normal (applies [facility] to non-numeric (Ammir results) [place] Physician) ID Date Data Source [id number] 11/02/2018 12:00:00 AM EDT [facility] ([facility] [place] Physician) Name Value Range Interpretation Description Data Sup porting Code Source(s) Document(s ) WBC 6.0 Normal (applies [facility] 10(3)/uL to non-numeric (Ammir results) [place] Physician) RBC 4.5 Normal (applies [facility] 10(6)/uL to non-numeric (Ammir results) [place] Physician) Hemoglobin 13.6 g/dL Normal (applies [facility] [Mass/volume] to non-numeric (Ammir in Mixed venous results) [place] blood by Physician) Oximetry Hematocrit 41.6 % Normal (applies [facility] [Pure volume to non-numeric (Ammir fraction] of results) [place] Blood by Physician) Automated count MCV 92.0 fL Normal (applies [facility] to non-numeric (Ammir results) [place] Physician) MCH 30 pg Normal (applies [facility] to non-numeric (Ammir results) [place] Physician) MCHC 33 g/dL Normal (applies [facility] to non-numeric (Ammir results) [place] Physician) RDWSD 45.8 fL Normal (applies [facility] to non-numeric (Ammir results) [place] Physician) RDWCV 13.8 % Normal (applies [facility] to non-numeric (Ammir results) [place] Physician) Platelet Count 224 Normal (applies [facility] 10(3)/uL to non-numeric (Ammir results) [place] Physician) MPV 11.0 fL Normal (applies [facility] to non-numeric (Ammir results) [place] Physician) Neutrophil Abs 3.22 Normal (applies [facility] 10(3)/uL to non-numeric (Ammir results) [place] Physician) Lymphocyte Abs 2.05 Normal (applies [facility] 10(3)/uL to non-numeric (Ammir results) [place] Physician) Monocyte Abs 0.61 Normal (applies [facility] 10(3)/uL to non-numeric (Ammir results) [place] Physician) Eosinophil Abs 0.06 Normal (applies [facility] 10(3)/uL to non-numeric (Ammir results) [place] Physician) Basophil Abs 0.02 Normal (applies [facility] 10(3)/uL to non-numeric (Ammir results) [place] Physician) Immature 0.02 Normal (applies [facility] Granulocyte Abs 10(3)/uL to non-numeric (Ammir results) [place] Physician) Neutrophil % 53.90 % Normal (applies [facility] to non-numeric (Ammir results) [place] Physician) Lymphocyte % 34 % Normal (applies [facility] to non-numeric (Ammir results) [place] Physician) Monocyte % 10.2 % Normal (applies [facility] to non-numeric (Ammir results) [place] Physician) Eosinophil % 1.0 % Normal (applies [facility] to non-numeric (Ammir results) [place] Physician) Basophil % 0.3 % Normal (applies [facility] to non-numeric (Ammir results) [place] Physician) Immature 0.30 % Normal (applies [facility] Granulocyte % to non-numeric (Ammir results) [place] Physician) NRBC % 0.0 % Normal (applies [facility] to non-numeric (Ammir results) [place] Physician) NRBC Abs 0.00 Normal (applies [facility] 10(3)/uL to non-numeric (Ammir results) [place] Physician) ID Date Data Source [id number] 11/02/2018 12:00:00 AM EDT [facility] ([facility] Physician) Name Value Range Interpretation Description Data Sup porting Code Source(s) Document(s ) FOLATE SERUM 9.9 ng/mL Normal (applies to [facility] ( Ammir non-numeric [place] results) Physician) VITAMIN B12 523 pg/mL Normal (applies to [facility] (A mmir non-numeric [place] results) Physician) ID Date Data Source [id number] 11/02/2018 12:00:00 AM EDT [facility] (Ammir [place] Physician) Name Value Range Interpretation Description Data Sup porting Code Source(s) Document(s ) VITAMIN D 21.79 Below low normal [facility] (Ammir 25-HYDROXY ng/mL [place] Physician) ID Date Data Source [id number] 11/02/2018 12:00:00 AM EDT [facility] (Ammir [place] Physician) Name Value Range Interpretation Code Description Data Supporting Source(s) Document(s ) IRON, 108 ug/dL Normal (applies to [facility] (Amm ir TOTAL non-numeric [place] results) Physician) ID Date Data Source [id number] 11/02/2018 12:00:00 AM EDT [facility] (Ammir [place] Physician) Name Value Range Interpretation Description Data Sup porting Code Source(s) Document(s ) Cholesterol 217 Above high normal [facility] [Moles/volume] mg/dL (Ammir in Pericardial [place] fluid Physician) LDL CALCULATION 106.2 Normal (applies [facility] mg/dL to non-numeric (Ammir results) [place] Physician) CHOL/HDL RATIO 2.49 Normal (applies [facility] ratio to non-numeric (Ammir results) [place] Physician) HDL CHOLESTEROL 87 mg/dL Normal (applies [facility] to non-numeric (Ammir results) [place] Physician) VLDL CALCULATION 23.8 Normal (applies [facility] mg/dl to non-numeric (Ammir results) [place] Physician) TRIGLYCERIDES 119 Normal (applies [facility] mg/dL to non-numeric (Ammir results) [place] Physician) ID Date Data Source [id number] 11/02/2018 12:00:00 AM EDT [facility] (Ammir [place] Physician) Name Value Range Interpretation Description Data Sup porting Code Source(s) Document(s ) GLUCOSE 71 mg/dL Normal (applies [facility] NONFASTING,SERUM to non-numeric (Ammir results) [place] Physician) SODIUM, SERUM 143 Normal (applies [facility] mEq/L to non-numeric (Ammir results) [place] Physician) POTASSIUM, SERUM 4.5 Normal (applies [facility] mEq/L to non-numeric (Ammir results) [place] Physician) CHLORIDE, SERUM 104 Normal (applies [facility] mEq/L to non-numeric (Ammir results) [place] Physician) Carbon dioxide 25 mEq/L Normal (applies [facility] [VFr/PPres] in to non-numeric (Ammir Gas delivery results) [place] system Physician) Anion gap in 18.5 Above high normal [facility] Body fluid mEq/L (Ammir [place] Physician) BLOOD UREA 14 mg/dL Normal (applies [facility] NITROGEN to non-numeric (Ammir results) [place] Physician) CREATININE, 1.00 Above high normal [facility] SERUM mg/dL (Ammir [place] Physician) BUN/CREATININE 14.00 Normal (applies [facility] RATIO to non-numeric (Ammir results) [place] Physician) CALCIUM, SERUM 9.9 Normal (applies [facility] mg/dL to non-numeric (Ammir results) [place] Physician) TOTAL PROTEIN 7.3 g/dL Normal (applies [facility] to non-numeric (Ammir results) [place] Physician) Microalbumin 4.6 g/dL Normal (applies [facility] [Mass/time] in to non-numeric (Ammir Urine collected results) [place] for unspecified Physician) duration Globulin 2.7 gldl Normal (applies [facility] [Mass/time] in to non-numeric (Ammir 24 hour Urine results) [place] Physician) A/G RATIO 1.70 Normal (applies [facility] g/dl to non-numeric (Ammir results) [place] Physician) BILIRUBIN, TOTAL 1.4 Above high normal [facility] N mg/dL (Ammir [place] Physician) ALKALINE 89 U/L Normal (applies [facility] PHOSPHATASE, ALP to non-numeric (Ammir results) [place] Physician) ALT (SGPT) 16 U/L Normal (applies [facility] to non-numeric (Ammir results) [place] Physician) AST 30 U/L Normal (applies [facility] to non-numeric (Ammir results) [place] Physician) EGFR NON AFR 56 Below low normal [facility] SOMALI mL/min/1 (Ammir .73m2 [place] Physician) EGFR AFR 67 Normal (applies [facility] SOMALI mL/min/1 to non-numeric (Ammir .73m2 results) [place] Physician) ID Date Data Source [id number] 11/02/2018 12:00:00 AM EDT [facility] (Ammir [place] Physician) Name Value Range Interpretation Description Data Sup porting Code Source(s) Document(s ) T4 FREE, 1.33 Normal (applies to [facility] THYROXINE ng/dL non-numeric (Ammir results) [place] Physician) TSH,3RD 2.47 Normal (applies to [facility] GENERATION uIU/mL non-numeric (Ammir results) [place] Physician) ID Date Data Source [id number] 11/02/2018 12:00:00 AM EDT [facility] (Ammir [place] Physician) Name Value Range Interpretation Description Data Sup porting Code Source(s) Document(s ) Ferritin 30.5 Normal (applies to [facility] (Amm ir [Interpretat ng/mL non-numeric [place] ion] in results) Physician) Blood ID Date Data Source [id number] 11/02/2018 12:00:00 AM EDT [facility] (Ammir [place] Physician) Name Value Range Interpretation Description Data Sup porting Code Source(s) Document(s ) Transferrin 366 mg/dL Normal (applies [facility] [Mass/time] in to non-numeric (Ammir 24 hour Urine results) [place] Physician) TIBC 513.2 Above high normal [facility] ug/dL (Ammir [place] Physician) UIBC 405.2 Above high normal [facility] ug/dL (Ammir [place] Physician) %SATURATION 21.0 % Normal (applies [facility] to non-numeric (Ammir results) [place] Physician) ID Date Data Source [id number] 11/02/2018 12:00:00 AM EDT [facility] (Ammir [place] Physician) Name Value Range Interpretation Description Data Sup porting Code Source(s) Document(s ) WBC 6.0 Normal (applies [facility] 10(3)/uL to non-numeric (Ammir results) [place] Physician) RBC 4.5 Normal (applies [facility] 10(6)/uL to non-numeric (Ammir results) [place] Physician) Hemoglobin 13.6 g/dL Normal (applies [facility] [Mass/volume] to non-numeric (Ammir in Mixed venous results) [place] blood by Physician) Oximetry Hematocrit 41.6 % Normal (applies [facility] [Pure volume to non-numeric (Ammir fraction] of results) [place] Blood by Physician) Automated count MCV 92.0 fL Normal (applies [facility] to non-numeric (Ammir results) [place] Physician) MCH 30 pg Normal (applies [facility] to non-numeric (Ammir results) [place] Physician) MCHC 33 g/dL Normal (applies [facility] to non-numeric (Ammir results) [place] Physician) RDWSD 45.8 fL Normal (applies [facility] to non-numeric (Ammir results) [place] Physician) RDWCV 13.8 % Normal (applies [facility] to non-numeric (Ammir results) [place] Physician) Platelet Count 224 Normal (applies [facility] 10(3)/uL to non-numeric (Ammir results) [place] Physician) MPV 11.0 fL Normal (applies [facility] to non-numeric (Ammir results) [place] Physician) Neutrophil Abs 3.22 Normal (applies [facility] 10(3)/uL to non-numeric (Ammir results) [place] Physician) Lymphocyte Abs 2.05 Normal (applies [facility] 10(3)/uL to non-numeric (Ammir results) [place] Physician) Monocyte Abs 0.61 Normal (applies [facility] 10(3)/uL to non-numeric (Ammir results) [place] Physician) Eosinophil Abs 0.06 Normal (applies [facility] 10(3)/uL to non-numeric (Ammir results) [place] Physician) Basophil Abs 0.02 Normal (applies [facility] 10(3)/uL to non-numeric (Ammir results) [place] Physician) Immature 0.02 Normal (applies [facility] Granulocyte Abs 10(3)/uL to non-numeric (Ammir results) [place] Physician) Neutrophil % 53.90 % Normal (applies [facility] to non-numeric (Ammir results) [place] Physician) Lymphocyte % 34 % Normal (applies [facility] to non-numeric (Ammir results) [place] Physician) Monocyte % 10.2 % Normal (applies [facility] to non-numeric (Ammir results) [place] Physician) Eosinophil % 1.0 % Normal (applies [facility] to non-numeric (Ammir results) [place] Physician) Basophil % 0.3 % Normal (applies [facility] to non-numeric (Ammir results) [place] Physician) Immature 0.30 % Normal (applies [facility] Granulocyte % to non-numeric (Ammir results) [place] Physician) NRBC % 0.0 % Normal (applies [facility] to non-numeric (Ammir results) [place] Physician) NRBC Abs 0.00 Normal (applies [facility] 10(3)/uL to non-numeric (Ammir results) [place] Physician) ID Date Data Source [id number] 11/02/2018 12:00:00 AM EDT [facility] (Ammir [place] Physician) Name Value Range Interpretation Description Data Sup porting Code Source(s) Document(s ) FOLATE SERUM 9.9 ng/mL Normal (applies to [facility] ( Ammir non-numeric [place] results) Physician) VITAMIN B12 523 pg/mL Normal (applies to [facility] (A mmir non-numeric [place] results) Physician) ID Date Data Source [id number] 11/02/2018 12:00:00 AM EDT [facility] (Ammir [place] Physician) Name Value Range Interpretation Description Data Sup porting Code Source(s) Document(s ) VITAMIN D 21.79 Below low normal [facility] (Ammir 25-HYDROXY ng/mL [place] Physician) ID Date Data Source [id number] 11/02/2018 12:00:00 AM EDT [facility] (Ammir [place] Physician) Name Value Range Interpretation Code Description Data Supporting Source(s) Document(s ) IRON, 108 ug/dL Normal (applies to [facility] (Amm ir TOTAL non-numeric [place] results) Physician) ID Date Data Source [id number] 11/02/2018 12:00:00 AM EDT [facility] (Ammir [place] Physician) Name Value Range Interpretation Description Data Sup porting Code Source(s) Document(s ) Cholesterol 217 Above high normal [facility] [Moles/volume] mg/dL (Ammir in Pericardial [place] fluid Physician) LDL CALCULATION 106.2 Normal (applies [facility] mg/dL to non-numeric (Ammir results) [place] Physician) CHOL/HDL RATIO 2.49 Normal (applies [facility] ratio to non-numeric (Ammir results) [place] Physician) HDL CHOLESTEROL 87 mg/dL Normal (applies [facility] to non-numeric (Ammir results) [place] Physician) VLDL CALCULATION 23.8 Normal (applies [facility] mg/dl to non-numeric (Ammir results) [place] Physician) TRIGLYCERIDES 119 Normal (applies [facility] mg/dL to non-numeric (Ammir results) [place] Physician) ID Date Data Source [id number] 11/02/2018 12:00:00 AM EDT [facility] (Ammir [place] Physician) Name Value Range Interpretation Description Data Sup porting Code Source(s) Document(s ) GLUCOSE 71 mg/dL Normal (applies [facility] NONFASTING,SERUM to non-numeric (Ammir results) [place] Physician) SODIUM, SERUM 143 Normal (applies [facility] mEq/L to non-numeric (Ammir results) [place] Physician) POTASSIUM, SERUM 4.5 Normal (applies [facility] mEq/L to non-numeric (Ammir results) [place] Physician) CHLORIDE, SERUM 104 Normal (applies [facility] mEq/L to non-numeric (Ammir results) [place] Physician) Carbon dioxide 25 mEq/L Normal (applies [facility] [VFr/PPres] in to non-numeric (Ammir Gas delivery results) [place] system Physician) Anion gap in 18.5 Above high normal [facility] Body fluid mEq/L (Ammir [place] Physician) BLOOD UREA 14 mg/dL Normal (applies [facility] NITROGEN to non-numeric (Ammir results) [place] Physician) CREATININE, 1.00 Above high normal [facility] SERUM mg/dL (Ammir [place] Physician) BUN/CREATININE 14.00 Normal (applies [facility] RATIO to non-numeric (Ammir results) [place] Physician) CALCIUM, SERUM 9.9 Normal (applies [facility] mg/dL to non-numeric (Ammir results) [place] Physician) TOTAL PROTEIN 7.3 g/dL Normal (applies [facility] to non-numeric (Ammir results) [place] Physician) Microalbumin 4.6 g/dL Normal (applies [facility] [Mass/time] in to non-numeric (Ammir Urine collected results) [place] for unspecified Physician) duration Globulin 2.7 gldl Normal (applies [facility] [Mass/time] in to non-numeric (Ammir 24 hour Urine results) [place] Physician) A/G RATIO 1.70 Normal (applies [facility] g/dl to non-numeric (Ammir results) [place] Physician) BILIRUBIN, TOTAL 1.4 Above high normal [facility] N mg/dL (Ammir [place] Physician) ALKALINE 89 U/L Normal (applies [facility] PHOSPHATASE, ALP to non-numeric (Ammir results) [place] Physician) ALT (SGPT) 16 U/L Normal (applies [facility] to non-numeric (Ammir results) [place] Physician) AST 30 U/L Normal (applies [facility] to non-numeric (Ammir results) [place] Physician) EGFR NON AFR 56 Below low normal [facility] SOMALI mL/min/1 (Ammir .73m2 [place] Physician) EGFR AFR 67 Normal (applies [facility] S[place]ALI mL/min/1 to non-numeric (Ammir .73m2 results) [place] Physician) ID Date Data Source [id number] 11/02/2018 12:00:00 AM EDT [facility] (Ammir [place] Physician) Name Value Range Interpretation Description Data Sup porting Code Source(s) Document(s ) T4 FREE, 1.33 Normal (applies to [facility] THYROXINE ng/dL non-numeric (Ammir results) [place] Physician) TSH,3RD 2.47 Normal (applies to [facility] GENERATION uIU/mL non-numeric (Ammir results) [place] Physician) ID Date Data Source [id number] 11/02/2018 12:00:00 AM EDT [facility] (Ammir [place] Physician) Name Value Range Interpretation Description Data Sup porting Code Source(s) Document(s ) Ferritin 30.5 Normal (applies to [facility] (Amm ir [Interpretat ng/mL non-numeric [place] ion] in results) Physician) Blood ID Date Data Source [id number] 11/02/2018 12:00:00 AM EDT [facility] (Ammir [place] Physician) Name Value Range Interpretation Description Data Sup porting Code Source(s) Document(s ) Transferrin 366 mg/dL Normal (applies [facility] [Mass/time] in to non-numeric (Ammir 24 hour Urine results) [place] Physician) TIBC 513.2 Above high normal [facility] ug/dL (Ammir [place] Physician) UIBC 405.2 Above high normal [facility] ug/dL (Ammir [place] Physician) %SATURATION 21.0 % Normal (applies [facility] to non-numeric (Ammir results) [place] Physician) ID Date Data Source [id number] 11/02/2018 12:00:00 AM EDT [facility] (Ammir [place] Physician) Name Value Range Interpretation Description Data Sup porting Code Source(s) Document(s ) WBC 6.0 Normal (applies [facility] 10(3)/uL to non-numeric (Ammir results) [place] Physician) RBC 4.5 Normal (applies [facility] 10(6)/uL to non-numeric (Ammir results) [place] Physician) Hemoglobin 13.6 g/dL Normal (applies [facility] [Mass/volume] to non-numeric (Ammir in Mixed venous results) [place] blood by Physician) Oximetry Hematocrit 41.6 % Normal (applies [facility] [Pure volume to non-numeric (Ammir fraction] of results) [place] Blood by Physician) Automated count MCV 92.0 fL Normal (applies [facility] to non-numeric (Ammir results) [place] Physician) MCH 30 pg Normal (applies [facility] to non-numeric (Ammir results) [place] Physician) MCHC 33 g/dL Normal (applies [facility] to non-numeric (Ammir results) [place] Physician) RDWSD 45.8 fL Normal (applies [facility] to non-numeric (Ammir results) [place] Physician) RDWCV 13.8 % Normal (applies [facility] to non-numeric (Ammir results) [place] Physician) Platelet Count 224 Normal (applies [facility] 10(3)/uL to non-numeric (Ammir results) [place] Physician) MPV 11.0 fL Normal (applies [facility] to non-numeric (Ammir results) [place] Physician) Neutrophil Abs 3.22 Normal (applies [facility] 10(3)/uL to non-numeric (Ammir results) [place] Physician) Lymphocyte Abs 2.05 Normal (applies [facility] 10(3)/uL to non-numeric (Ammir results) [place] Physician) Monocyte Abs 0.61 Normal (applies [facility] 10(3)/uL to non-numeric (Ammir results) [place] Physician) Eosinophil Abs 0.06 Normal (applies [facility] 10(3)/uL to non-numeric (Ammir results) [place] Physician) Basophil Abs 0.02 Normal (applies [facility] 10(3)/uL to non-numeric (Ammir results) [place] Physician) Immature 0.02 Normal (applies [facility] Granulocyte Abs 10(3)/uL to non-numeric (Ammir results) [place] Physician) Neutrophil % 53.90 % Normal (applies [facility] to non-numeric (Ammir results) [place] Physician) Lymphocyte % 34 % Normal (applies [facility] to non-numeric (Ammir results) [place] Physician) Monocyte % 10.2 % Normal (applies [facility] to non-numeric (Ammir results) [place] Physician) Eosinophil % 1.0 % Normal (applies [facility] to non-numeric (Ammir results) [place] Physician) Basophil % 0.3 % Normal (applies [facility] to non-numeric (Ammir results) [place] Physician) Immature 0.30 % Normal (applies [facility] Granulocyte % to non-numeric (Ammir results) [place] Physician) NRBC % 0.0 % Normal (applies [facility] to non-numeric (Ammir results) [place] Physician) NRBC Abs 0.00 Normal (applies [facility] 10(3)/uL to non-numeric (Ammir results) [place] Physician) ID Date Data Source [id number] 11/02/2018 12:00:00 AM EDT [facility] (Ammir [place] Physician) Name Value Range Interpretation Description Data Sup porting Code Source(s) Document(s ) FOLATE SERUM 9.9 ng/mL Normal (applies to [facility] ( Ammir non-numeric [place] results) Physician) VITAMIN B12 523 pg/mL Normal (applies to [facility] (A mmir non-numeric [place] results) Physician) ID Date Data Source [id number] 11/02/2018 12:00:00 AM EDT [facility] (Ammir [place] Physician) Name Value Range Interpretation Description Data Sup porting Code Source(s) Document(s ) VITAMIN D 21.79 Below low normal [facility] (Ammir 25-HYDROXY ng/mL [place] Physician) ID Date Data Source [id number] 11/02/2018 12:00:00 AM EDT [facility] (Ammir [place] Physician) Name Value Range Interpretation Code Description Data Supporting Source(s) Document(s ) IRON, 108 ug/dL Normal (applies to [facility] (Amm ir TOTAL non-numeric [place] results) Physician) ID Date Data Source [id number] 07/28/2018 12:00:00 AM EDT [facility] (Ammir [place] Physician) Name Value Range Interpretation Description Data Sup porting Code Source(s) Document(s ) GLUCOSE C Normal (applies [facility] NONFASTING,SERUM to non-numeric (Ammir results) [place] Physician) SODIUM, SERUM 141 Normal (applies [facility] mEq/L to non-numeric (Ammir results) [place] Physician) POTASSIUM, SERUM 4.6 Normal (applies [facility] mEq/L to non-numeric (Ammir results) [place] Physician) CHLORIDE, SERUM 103 Normal (applies [facility] mEq/L to non-numeric (Ammir results) [place] Physician) Carbon dioxide 27 mEq/L Normal (applies [facility] [VFr/PPres] in to non-numeric (Ammir Gas delivery results) [place] system Physician) Anion gap in 16 mEq/L Normal (applies [facility] Body fluid to non-numeric (Ammir results) [place] Physician) BLOOD UREA 13 mg/dL Normal (applies [facility] NITROGEN to non-numeric (Ammir results) [place] Physician) CREATININE, 1.00 Above high normal [facility] SERUM mg/dL (Ammir [place] Physician) BUN/CREATININE 13.0 Normal (applies [facility] RATIO to non-numeric (Ammir results) [place] Physician) CALCIUM, SERUM 9.9 Normal (applies [facility] mg/dL to non-numeric (Ammir results) [place] Physician) TOTAL PROTEIN 7.2 g/dL Normal (applies [facility] to non-numeric (Ammir results) [place] Physician) Microalbumin 4.6 g/dL Normal (applies [facility] [Mass/time] in to non-numeric (Ammir Urine collected results) [place] for unspecified Physician) duration Globulin 2.6 gldl Normal (applies [facility] [Mass/time] in to non-numeric (Ammir 24 hour Urine results) [place] Physician) A/G RATIO 1.77 Normal (applies [facility] g/dl to non-numeric (Ammir results) [place] Physician) BILIRUBIN, TOTAL 1.5 Above high normal [facility] N mg/dL (Ammir [place] Physician) ALKALINE 86 U/L Normal (applies [facility] PHOSPHATASE, ALP to non-numeric (Ammir results) [place] Physician) ALT (SGPT) 17 U/L Normal (applies [facility] to non-numeric (Ammir results) [place] Physician) AST 26 U/L Normal (applies [facility] to non-numeric (Ammir results) [place] Physician) EGFR NON AFR 56 Above high normal [facility] SOMALI mL/min/1 (Ammir .73m2 [place] Physician) EGFR AFR 67 Above high normal [facility] SOMALI mL/min/1 (Ammir .73m2 [place] Physician) ID Date Data Source [id number] 07/28/2018 12:00:00 AM EDT [facility] (Ammir [place] Physician) Name Value Range Interpretation Description Data Sup porting Code Source(s) Document(s ) Ferritin 37.4 Normal (applies to [facility] (Amm ir [Interpretat ng/mL non-numeric [place] ion] in results) Physician) Blood ID Date Data Source [id number] 07/28/2018 12:00:00 AM EDT [facility] (Ammir [place] Physician) Name Value Range Interpretation Description Data Sup porting Code Source(s) Document(s ) Transferrin 371 mg/dL Normal (applies [facility] [Mass/time] in to non-numeric (Ammir 24 hour Urine results) [place] Physician) TIBC 520.2 Above high normal [facility] ug/dL (Ammir [place] Physician) UIBC 394.2 Above high normal [facility] ug/dL (Ammir [place] Physician) %SATURATION 24.2 % Normal (applies [facility] to non-numeric (Ammir results) [place] Physician) ID Date Data Source [id number] 07/28/2018 12:00:00 AM EDT [facility] (Ammir [place] Physician) Name Value Range Interpretation Description Data Sup porting Code Source(s) Document(s ) WBC 5.5 Normal (applies [facility] 10(3)/uL to non-numeric (Ammir results) [place] Physician) RBC 4.7 Normal (applies [facility] 10(6)/uL to non-numeric (Ammir results) [place] Physician) Hemoglobin 14.3 g/dL Normal (applies [facility] [Mass/volume] to non-numeric (Ammir in Mixed venous results) [place] blood by Physician) Oximetry Hematocrit 43.9 % Normal (applies [facility] [Pure volume to non-numeric (Ammir fraction] of results) [place] Blood by Physician) Automated count MCV 93.2 fL Normal (applies [facility] to non-numeric (Ammir results) [place] Physician) MCH 30 pg Normal (applies [facility] to non-numeric (Ammir results) [place] Physician) MCHC 33 g/dL Normal (applies [facility] to non-numeric (Ammir results) [place] Physician) RDWSD 44.7 fL Normal (applies [facility] to non-numeric (Ammir results) [place] Physician) RDWCV 13.3 % Normal (applies [facility] to non-numeric (Ammir results) [place] Physician) Platelet Count 211 Normal (applies [facility] 10(3)/uL to non-numeric (Ammir results) [place] Physician) MPV 11.1 fL Normal (applies [facility] to non-numeric (Ammir results) [place] Physician) Neutrophil Abs 2.57 Normal (applies [facility] 10(3)/uL to non-numeric (Ammir results) [place] Physician) Lymphocyte Abs 2.08 Normal (applies [facility] 10(3)/uL to non-numeric (Ammir results) [place] Physician) Monocyte Abs 0.68 Normal (applies [facility] 10(3)/uL to non-numeric (Ammir results) [place] Physician) Eosinophil Abs 0.10 Normal (applies [facility] 10(3)/uL to non-numeric (Ammir results) [place] Physician) Neutrophil % 46.90 % Normal (applies [facility] to non-numeric (Ammir results) [place] Physician) Lymphocyte % 38 % Normal (applies [facility] to non-numeric (Ammir results) [place] Physician) Monocyte % 12.4 % Normal (applies [facility] to non-numeric (Ammir results) [place] Physician) Eosinophil % 1.8 % Normal (applies [facility] to non-numeric (Ammir results) [place] Physician) Basophil % 0.5 % Normal (applies [facility] to non-numeric (Ammir results) [place] Physician) Immature 0.40 % Normal (applies [facility] Granulocyte % to non-numeric (Ammir results) [place] Physician) ID Date Data Source [id number] 07/28/2018 12:00:00 AM EDT [facility] (Ammir [place] Physician) Name Value Range Interpretation Code Description Data Supporting Source(s) Document(s ) IRON, 126 ug/dL Normal (applies to [facility] (Amm ir TOTAL non-numeric [place] results) Physician) ID Date Data Source [id number] 07/28/2018 12:00:00 AM EDT [facility] (Ammir [place] Physician) Name Value Range Interpretation Description Data Sup porting Code Source(s) Document(s ) GLUCOSE C Normal (applies [facility] NONFASTING,SERUM to non-numeric (Ammir results) [place] Physician) SODIUM, SERUM 141 Normal (applies [facility] mEq/L to non-numeric (Ammir results) [place] Physician) POTASSIUM, SERUM 4.6 Normal (applies [facility] mEq/L to non-numeric (Ammir results) [place] Physician) CHLORIDE, SERUM 103 Normal (applies [facility] mEq/L to non-numeric (Ammir results) [place] Physician) Carbon dioxide 27 mEq/L Normal (applies [facility] [VFr/PPres] in to non-numeric (Ammir Gas delivery results) [place] system Physician) Anion gap in 16 mEq/L Normal (applies [facility] Body fluid to non-numeric (Ammir results) [place] Physician) BLOOD UREA 13 mg/dL Normal (applies [facility] NITROGEN to non-numeric (Ammir results) [place] Physician) CREATININE, 1.00 Above high normal [facility] SERUM mg/dL (Ammir [place] Physician) BUN/CREATININE 13.0 Normal (applies [facility] RATIO to non-numeric (Ammir results) [place] Physician) CALCIUM, SERUM 9.9 Normal (applies [facility] mg/dL to non-numeric (Ammir results) [place] Physician) TOTAL PROTEIN 7.2 g/dL Normal (applies [facility] to non-numeric (Ammir results) [place] Physician) Microalbumin 4.6 g/dL Normal (applies [facility] [Mass/time] in to non-numeric (Ammir Urine collected results) [place] for unspecified Physician) duration Globulin 2.6 gldl Normal (applies [facility] [Mass/time] in to non-numeric (Ammir 24 hour Urine results) [place] Physician) A/G RATIO 1.77 Normal (applies [facility] g/dl to non-numeric (Ammir results) [place] Physician) BILIRUBIN, TOTAL 1.5 Above high normal [facility] N mg/dL (Ammir [place] Physician) ALKALINE 86 U/L Normal (applies [facility] PHOSPHATASE, ALP to non-numeric (Ammir results) [place] Physician) ALT (SGPT) 17 U/L Normal (applies [facility] to non-numeric (Ammir results) [place] Physician) AST 26 U/L Normal (applies [facility] to non-numeric (Ammir results) [place] Physician) EGFR NON AFR 56 Above high normal [facility] SOMALI mL/min/1 (Ammir .73m2 [place] Physician) EGFR AFR 67 Above high normal [facility] SOMALI mL/min/1 (Ammir .73m2 [place] Physician) ID Date Data Source [id number] 07/28/2018 12:00:00 AM EDT [facility] (Ammir [place] Physician) Name Value Range Interpretation Description Data Sup porting Code Source(s) Document(s ) Ferritin 37.4 Normal (applies to [facility] (Amm ir [Interpretat ng/mL non-numeric [place] ion] in results) Physician) Blood ID Date Data Source [id number] 07/28/2018 12:00:00 AM EDT [facility] (Ammir [place] Physician) Name Value Range Interpretation Description Data Sup porting Code Source(s) Document(s ) Transferrin 371 mg/dL Normal (applies [facility] [Mass/time] in to non-numeric (Ammir 24 hour Urine results) [place] Physician) TIBC 520.2 Above high normal [facility] ug/dL (Ammir [place] Physician) UIBC 394.2 Above high normal [facility] ug/dL (Ammir [place] Physician) %SATURATION 24.2 % Normal (applies [facility] to non-numeric (Ammir results) [facility] Physician) ID Date Data Source [id number] 07/28/2018 12:00:00 AM EDT [facility] ([facility]mmir [facility] Physician) Name Value Range Interpretation Description Data Sup porting Code Source(s) Document(s ) WBC 5.5 Normal (applies [facility] 10(3)/uL to non-numeric (Ammir results) [facility] Physician) RBC 4.7 Normal (applies [facility] 10(6)/uL to non-numeric (Ammir results) [facility] Physician) Hemoglobin 14.3 g/dL Normal (applies [facility] [Mass/volume] to non-numeric (Ammir in Mixed venous results) [place] blood by Physician) Oximetry Hematocrit 43.9 % Normal (applies [facility] [Pure volume to non-numeric (Ammir fraction] of results) [place] Blood by Physician) Automated count MCV 93.2 fL Normal (applies [facility] to non-numeric (Ammir results) [place] Physician) MCH 30 pg Normal (applies [facility] to non-numeric (Ammir results) [place] Physician) MCHC 33 g/dL Normal (applies [facility] to non-numeric (Ammir results) [facility] Physician) RDWSD 44.7 fL Normal (applies [facility] to non-numeric (Ammir results) [facility] Physician) RDWCV 13.3 % Normal (applies [facility] to non-numeric (Ammir results) [facility] Physician) Platelet Count 211 Normal (applies [facility] 10(3)/uL to non-numeric (Ammir results) [place] Physician) MPV 11.1 fL Normal (applies [facility] to non-numeric (Ammir results) [facility] Physician) Neutrophil Abs 2.57 Normal (applies [facility] 10(3)/uL to non-numeric (Ammir results) [facility] Physician) Lymphocyte Abs 2.08 Normal (applies [facility] 10(3)/uL to non-numeric (Ammir results) [place] Physician) Monocyte Abs 0.68 Normal (applies [facility] 10(3)/uL to non-numeric (Ammir results) [place] Physician) Eosinophil Abs 0.10 Normal (applies [facility] 10(3)/uL to non-numeric (Ammir results) [place] Physician) Neutrophil % 46.90 % Normal (applies [facility] to non-numeric (Ammir results) [place] Physician) Lymphocyte % 38 % Normal (applies [facility] to non-numeric (Ammir results) [place] Physician) Monocyte % 12.4 % Normal (applies [facility] to non-numeric (Ammir results) [place] Physician) Eosinophil % 1.8 % Normal (applies [facility] to non-numeric (Ammir results) [facility] Physician) Basophil % 0.5 % Normal (applies [facility] to non-numeric (Ammir results) [place] Physician) Immature 0.40 % Normal (applies [facility] Granulocyte % to non-numeric (Ammir results) [place] Physician) ID Date Data Source [id number] 07/28/2018 12:00:00 AM EDT [facility] ([facility]mm[facility] Phys[facility]) Name Value Range Interpretation Code Description Data Supporting Source(s) Document(s ) IRON, 126 ug/dL Normal (applies to [facility] (Amm ir TOTAL non-numeric [place] results) Physician) ID Date Data Source [id number] 07/28/2018 12:00:00 AM EDT [facility] ([facility]mmir [facility] Physician) Name Value Range Interpretation Description Data Sup porting Code Source(s) Document(s ) GLUCOSE C Normal (applies [facility] NONFASTING,SERUM to non-numeric (Ammir results) [place] Physician) SODIUM, SERUM 141 Normal (applies [facility] mEq/L to non-numeric (Ammir results) [place] Physician) POTASSIUM, SERUM 4.6 Normal (applies [facility] mEq/L to non-numeric (Ammir results) [place] Physician) CHLORIDE, SERUM 103 Normal (applies [facility] mEq/L to non-numeric (Ammir results) [place] Physician) Carbon dioxide 27 mEq/L Normal (applies [facility] [VFr/PPres] in to non-numeric (Ammir Gas delivery results) [facility] system Physician) Anion gap in 16 mEq/L Normal (applies [facility] Body fluid to non-numeric (Ammir results) [place] Physician) BLOOD UREA 13 mg/dL Normal (applies [facility] NITROGEN to non-numeric (Ammir results) [place] Physician) CREATININE, 1.00 Above high normal [facility] SERUM mg/dL (Ammir [place] Physician) BUN/CREATININE 13.0 Normal (applies [facility] RATIO to non-numeric (Ammir results) [place] Physician) CALCIUM, SERUM 9.9 Normal (applies [facility] mg/dL to non-numeric (Ammir results) [facility] Physician) TOTAL PROTEIN 7.2 g/dL Normal (applies [facility] to non-numeric (Ammir results) [facility] Physician) Microalbumin 4.6 g/dL Normal (applies [facility] [Mass/time] in to non-numeric (Ammir Urine collected results) [place] for unspecified Physician) duration Globulin 2.6 gldl Normal (applies [facility] [Mass/time] in to non-numeric (Ammir 24 hour Urine results) [place] Physician) A/G RATIO 1.77 Normal (applies [facility] g/dl to non-numeric (Ammir results) [place] Physician) BILIRUBIN, TOTAL 1.5 Above high normal [facility] N mg/dL (Ammir [place] Physician) ALKALINE 86 U/L Normal (applies [facility] PHOSPHATASE, ALP to non-numeric (Ammir results) [place] Physician) ALT (SGPT) 17 U/L Normal (applies [facility] to non-numeric (Ammir results) [place] Physician) AST 26 U/L Normal (applies [facility] to non-numeric (Ammir results) [place] Physician) EGFR NON AFR 56 Above high normal [facility] SOMALI mL/min/1 (Ammir .73m2 [place] Physician) EGFR AFR 67 Above high normal [facility] SOMALI mL/min/1 (Ammir .73m2 [place] Physician) ID Date Data Source [id number] 07/28/2018 12:00:00 AM EDT [facility] ([facility]mmir [facility] Physician) Name Value Range Interpretation Description Data Sup porting Code Source(s) Document(s ) Ferritin 37.4 Normal (applies to [facility] (Amm ir [Interpretat ng/mL non-numeric [place] ion] in results) Physician) Blood ID Date Data Source [id number] 07/28/2018 12:00:00 AM EDT [facility] (Ammir [facility] Phys[facility]) Name Value Range Interpretation Description Data Sup porting Code Source(s) Document(s ) Transferrin 371 mg/dL Normal (applies [facility] [Mass/time] in to non-numeric (Ammir 24 hour Urine results) [place] Physician) TIBC 520.2 Above high normal [facility] ug/dL (Ammir [place] Physician) UIBC 394.2 Above high normal [facility] ug/dL (Ammir [place] Physician) %SATURATION 24.2 % Normal (applies [facility] to non-numeric (Ammir results) [place] Physician) ID Date Data Source [id number] 07/28/2018 12:00:00 AM EDT [facility] (Ammir [facility] Physician) Name Value Range Interpretation Description Data Sup porting Code Source(s) Document(s ) WBC 5.5 Normal (applies [facility] 10(3)/uL to non-numeric (Ammir results) [place] Physician) RBC 4.7 Normal (applies [facility] 10(6)/uL to non-numeric (Ammir results) [place] Physician) Hemoglobin 14.3 g/dL Normal (applies [facility] [Mass/volume] to non-numeric (Ammir in Mixed venous results) [place] blood by Physician) Oximetry Hematocrit 43.9 % Normal (applies [facility] [Pure volume to non-numeric (Ammir fraction] of results) [place] Blood by Physician) Automated count MCV 93.2 fL Normal (applies [facility] to non-numeric (Ammir results) [place] Physician) MCH 30 pg Normal (applies [facility] to non-numeric (Ammir results) [place] Physician) MCHC 33 g/dL Normal (applies [facility] to non-numeric (Ammir results) [place] Physician) RDWSD 44.7 fL Normal (applies [facility] to non-numeric (Ammir results) [place] Physician) RDWCV 13.3 % Normal (applies [facility] to non-numeric (Ammir results) [place] Physician) Platelet Count 211 Normal (applies [facility] 10(3)/uL to non-numeric (Ammir results) [place] Physician) MPV 11.1 fL Normal (applies [facility] to non-numeric (Ammir results) [place] Physician) Neutrophil Abs 2.57 Normal (applies [facility] 10(3)/uL to non-numeric (Ammir results) [place] Physician) Lymphocyte Abs 2.08 Normal (applies [facility] 10(3)/uL to non-numeric (Ammir results) [place] Physician) Monocyte Abs 0.68 Normal (applies [facility] 10(3)/uL to non-numeric (Ammir results) [place] Physician) Eosinophil Abs 0.10 Normal (applies [facility] 10(3)/uL to non-numeric (Ammir results) [place] Physician) Neutrophil % 46.90 % Normal (applies [facility] to non-numeric (Ammir results) [place] Physician) Lymphocyte % 38 % Normal (applies [facility] to non-numeric (Ammir results) [place] Physician) Monocyte % 12.4 % Normal (applies [facility] to non-numeric (Ammir results) [place] Physician) Eosinophil % 1.8 % Normal (applies [facility] to non-numeric (Ammir results) [place] Physician) Basophil % 0.5 % Normal (applies [facility] to non-numeric (Ammir results) [place] Physician) Immature 0.40 % Normal (applies [facility] Granulocyte % to non-numeric (Ammir results) [place] Physician) ID Date Data Source [id number] 07/28/2018 12:00:00 AM EDT [facility] (Ammir [facility] Physician) Name Value Range Interpretation Code Description Data Supporting Source(s) Document(s ) IRON, 126 ug/dL Normal (applies to [facility] (Amm ir TOTAL non-numeric [place] results) Physician) ID Date Data Source [id number] 07/28/2018 12:00:00 AM EDT [facility] (Ammir [facility] Physician) Name Value Range Interpretation Description Data Sup porting Code Source(s) Document(s ) GLUCOSE C Normal (applies [facility] NONFASTING,SERUM to non-numeric (Ammir results) [place] Physician) SODIUM, SERUM 141 Normal (applies [facility] mEq/L to non-numeric (Ammir results) [place] Physician) POTASSIUM, SERUM 4.6 Normal (applies [facility] mEq/L to non-numeric (Ammir results) [place] Physician) CHLORIDE, SERUM 103 Normal (applies [facility] mEq/L to non-numeric (Ammir results) [place] Physician) Carbon dioxide 27 mEq/L Normal (applies [facility] [VFr/PPres] in to non-numeric (Ammir Gas delivery results) [facility] system Physician) Anion gap in 16 mEq/L Normal (applies [facility] Body fluid to non-numeric (Ammir results) [place] Physician) BLOOD UREA 13 mg/dL Normal (applies [facility] NITROGEN to non-numeric (Ammir results) [place] Physician) CREATININE, 1.00 Above high normal [facility] SERUM mg/dL (Ammir [place] Physician) BUN/CREATININE 13.0 Normal (applies [facility] RATIO to non-numeric (Ammir results) [place] Physician) CALCIUM, SERUM 9.9 Normal (applies [facility] mg/dL to non-numeric (Ammir results) [place] Physician) TOTAL PROTEIN 7.2 g/dL Normal (applies [facility] to non-numeric (Ammir results) [facility] Physician) Microalbumin 4.6 g/dL Normal (applies [facility] [Mass/time] in to non-numeric (Ammir Urine collected results) [place] for unspecified Physician) duration Globulin 2.6 gldl Normal (applies [facility] [Mass/time] in to non-numeric (Ammir 24 hour Urine results) [place] Physician) A/G RATIO 1.77 Normal (applies [facility] g/dl to non-numeric (Ammir results) [place] Physician) BILIRUBIN, TOTAL 1.5 Above high normal [facility] N mg/dL (Ammir [place] Physician) ALKALINE 86 U/L Normal (applies [facility] PHOSPHATASE, ALP to non-numeric (Ammir results) [place] Physician) ALT (SGPT) 17 U/L Normal (applies [facility] to non-numeric (Ammir results) [place] Physician) AST 26 U/L Normal (applies [facility] to non-numeric (Ammir results) [place] Physician) EGFR NON AFR 56 Above high normal [facility] SOMALI mL/min/1 (Ammir .73m2 [place] Physician) EGFR AFR 67 Above high normal [facility] SOMALI mL/min/1 (Ammir .73m2 [place] Physician) ID Date Data Source [id number] 07/28/2018 12:00:00 AM EDT [facility] (Ammir [facility] Physician) Name Value Range Interpretation Description Data Sup porting Code Source(s) Document(s ) Ferritin 37.4 Normal (applies to [facility] (Amm ir [Interpretat ng/mL non-numeric [place] ion] in results) Physician) Blood ID Date Data Source [id number] 07/28/2018 12:00:00 AM EDT [facility] (Ammir [facility] Physician) Name Value Range Interpretation Description Data Sup porting Code Source(s) Document(s ) Transferrin 371 mg/dL Normal (applies [facility] [Mass/time] in to non-numeric (Ammir 24 hour Urine results) [place] Physician) TIBC 520.2 Above high normal [facility] ug/dL (Ammir [place] Physician) UIBC 394.2 Above high normal [facility] ug/dL (Ammir [place] Physician) %SATURATION 24.2 % Normal (applies [facility] to non-numeric (Ammir results) [facility] Physician) ID Date Data Source [id number] 07/28/2018 12:00:00 AM EDT [facility] (Ammir [facility] Physician) Name Value Range Interpretation Description Data Sup porting Code Source(s) Document(s ) WBC 5.5 Normal (applies [facility] 10(3)/uL to non-numeric (Ammir results) [place] Physician) RBC 4.7 Normal (applies [facility] 10(6)/uL to non-numeric (Ammir results) [place] Physician) Hemoglobin 14.3 g/dL Normal (applies [facility] [Mass/volume] to non-numeric (Ammir in Mixed venous results) [place] blood by Physician) Oximetry Hematocrit 43.9 % Normal (applies [facility] [Pure volume to non-numeric (Ammir fraction] of results) [place] Blood by Physician) Automated count MCV 93.2 fL Normal (applies [facility] to non-numeric (Ammir results) [place] Physician) MCH 30 pg Normal (applies [facility] to non-numeric (Ammir results) [place] Physician) MCHC 33 g/dL Normal (applies [facility] to non-numeric (Ammir results) [place] Physician) RDWSD 44.7 fL Normal (applies [facility] to non-numeric (Ammir results) [place] Physician) RDWCV 13.3 % Normal (applies [facility] to non-numeric (Ammir results) [place] Physician) Platelet Count 211 Normal (applies [facility] 10(3)/uL to non-numeric (Ammir results) [place] Physician) MPV 11.1 fL Normal (applies [facility] to non-numeric (Ammir results) [place] Physician) Neutrophil Abs 2.57 Normal (applies [facility] 10(3)/uL to non-numeric (Ammir results) [place] Physician) Lymphocyte Abs 2.08 Normal (applies [facility] 10(3)/uL to non-numeric (Ammir results) [place] Physician) Monocyte Abs 0.68 Normal (applies [facility] 10(3)/uL to non-numeric (Ammir results) [place] Physician) Eosinophil Abs 0.10 Normal (applies [facility] 10(3)/uL to non-numeric (Ammir results) [place] Physician) Neutrophil % 46.90 % Normal (applies [facility] to non-numeric (Ammir results) [place] Physician) Lymphocyte % 38 % Normal (applies [facility] to non-numeric (Ammir results) [place] Physician) Monocyte % 12.4 % Normal (applies [facility] to non-numeric (Ammir results) [place] Physician) Eosinophil % 1.8 % Normal (applies [facility] to non-numeric (Ammir results) [place] Physician) Basophil % 0.5 % Normal (applies [facility] to non-numeric (Ammir results) [place] Physician) Immature 0.40 % Normal (applies [facility] Granulocyte % to non-numeric (Ammir results) [place] Physician) ID Date Data Source [id number] 07/28/2018 12:00:00 AM EDT [facility] (Ammir [facility] Physician) Name Value Range Interpretation Code Description Data Supporting Source(s) Document(s ) IRON, 126 ug/dL Normal (applies to [facility] (Amm ir TOTAL non-numeric [place] results) Physician) ID Date Data Source [id number] 06/27/2018 12:00:00 AM EDT [facility] (Ammir [facility] Physician) Name Value Range Interpretation Description Data Sup porting Code Source(s) Document(s ) CRP, HIGH 225.89 Above high normal [facility] SENSITIVITY mg/L (Ammir [place] Physician) ID Date Data Source [id number] 06/27/2018 12:00:00 AM EDT [facility] (Ammir [facility] Physician) Name Value Range Interpretation Code Description Data Ning rce(s) Supporting Document(s ) ESR 49 mm/hr Above high normal [facility] (Ammi r [place] Physician) ID Date Data Source [id number] 06/27/2018 12:00:00 AM EDT [facility] (Ammir [place] Physician) Name Value Range Interpretation Description Data Sup porting Code Source(s) Document(s ) GLUCOSE 84 mg/dL Normal (applies [facility] NONFASTING,SERUM to non-numeric (Ammir results) [place] Physician) SODIUM, SERUM 140 Normal (applies [facility] mEq/L to non-numeric (Ammir results) [place] Physician) POTASSIUM, SERUM 4.0 Normal (applies [facility] mEq/L to non-numeric (Ammir results) [place] Physician) CHLORIDE, SERUM 104 Normal (applies [facility] mEq/L to non-numeric (Ammir results) [place] Physician) Carbon dioxide 25 mEq/L Normal (applies [facility] [VFr/PPres] in to non-numeric (Ammir Gas delivery results) [place] system Physician) Anion gap in 15 mEq/L Normal (applies [facility] Body fluid to non-numeric (Ammir results) [place] Physician) BLOOD UREA 14 mg/dL Normal (applies [facility] NITROGEN to non-numeric (Ammir results) [place] Physician) CREATININE, 1.00 Above high normal [facility] SERUM mg/dL (Ammir [place] Physician) BUN/CREATININE 14.00 Normal (applies [facility] RATIO to non-numeric (Ammir results) [place] Physician) CALCIUM, SERUM 9.0 Normal (applies [facility] mg/dL to non-numeric (Ammir results) [place] Physician) TOTAL PROTEIN 7.7 g/dL Normal (applies [facility] to non-numeric (Ammir results) [place] Physician) Microalbumin 4.4 g/dL Normal (applies [facility] [Mass/time] in to non-numeric (Ammir Urine collected results) [place] for unspecified Physician) duration Globulin 3.3 gldl Normal (applies [facility] [Mass/time] in to non-numeric (Ammir 24 hour Urine results) [place] Physician) A/G RATIO 1.33 Normal (applies [facility] g/dl to non-numeric (Ammir results) [place] Physician) BILIRUBIN, TOTAL 2.8 Above high normal [facility] N mg/dL (Ammir [place] Physician) ALKALINE 84 U/L Normal (applies [facility] PHOSPHATASE, ALP to non-numeric (Ammir results) [place] Physician) ALT (SGPT) 9 U/L Below low normal [facility] (Ammir [place] Physician) AST 21 U/L Normal (applies [facility] to non-numeric (Ammir results) [place] Physician) EGFR NON AFR 56 Above high normal [facility] SOMALI mL/min/1 (Ammir .73m2 [place] Physician) EGFR AFR 68 Above high normal [facility] SOMALI mL/min/1 (Ammir .73m2 [place] Physician) ID Date Data Source [id number] 06/27/2018 12:00:00 AM EDT [facility] (Ammir [facility] Physician) Name Value Range Interpretation Description Data Sup porting Code Source(s) Document(s ) WBC 11.0 Normal (applies [facility] 10(3)/uL to non-numeric (Ammir results) [place] Physician) RBC 4.5 Normal (applies [facility] 10(6)/uL to non-numeric (Ammir results) [place] Physician) Hemoglobin 13.7 g/dL Normal (applies [facility] [Mass/volume] to non-numeric (Ammir in Mixed venous results) [place] blood by Physician) Oximetry Hematocrit 40.8 % Normal (applies [facility] [Pure volume to non-numeric (Ammir fraction] of results) [place] Blood by Physician) Automated count MCV 89.9 fL Normal (applies [facility] to non-numeric (Ammir results) [place] Physician) MCH 30 pg Normal (applies [facility] to non-numeric (Ammir results) [place] Physician) MCHC 34 g/dL Normal (applies [facility] to non-numeric (Ammir results) [place] Physician) RDWSD 41.9 fL Normal (applies [facility] to non-numeric (Ammir results) [place] Physician) RDWCV 13.0 % Normal (applies [facility] to non-numeric (Ammir results) [place] Physician) Platelet Count 237 Normal (applies [facility] 10(3)/uL to non-numeric (Ammir results) [place] Physician) MPV 11.2 fL Normal (applies [facility] to non-numeric (Ammir results) [place] Physician) Neutrophil Abs 7.81 Above high normal [facility] 10(3)/uL (Ammir [place] Physician) Lymphocyte Abs 1.92 Normal (applies [facility] 10(3)/uL to non-numeric (Ammir results) [place] Physician) Monocyte Abs 1.10 Above high normal [facility] 10(3)/uL (Ammir [place] Physician) Eosinophil Abs 0.02 Normal (applies [facility] 10(3)/uL to non-numeric (Ammir results) [place] Physician) Neutrophil % 71.30 % Normal (applies [facility] to non-numeric (Ammir results) [place] Physician) Lymphocyte % 18 % Below low normal [facility] (Ammir [place] Physician) Monocyte % 10.0 % Normal (applies [facility] to non-numeric (Ammir results) [place] Physician) Eosinophil % 0.2 % Normal (applies [facility] to non-numeric (Ammir results) [place] Physician) Basophil % 0.3 % Normal (applies [facility] to non-numeric (Ammir results) [place] Physician) Immature 0.70 % Above high normal [facility] Granulocyte % (Ammir [place] Physician) ID Date Data Source [id number] 06/27/2018 12:00:00 AM EDT [facility] (Ammir [place] Physician) Name Value Range Interpretation Description Data Sup porting Code Source(s) Document(s ) CRP, HIGH 225.89 Above high normal [facility] SENSITIVITY mg/L (Ammir [place] Physician) ID Date Data Source [id number] 06/27/2018 12:00:00 AM EDT [facility] (Ammir [facility] Physician) Name Value Range Interpretation Code Description Data Ning rce(s) Supporting Document(s ) ESR 49 mm/hr Above high normal [facility] (Ammi r [place] Physician) ID Date Data Source [id number] 06/27/2018 12:00:00 AM EDT [facility] (Ammir [place] Physician) Name Value Range Interpretation Description Data Sup porting Code Source(s) Document(s ) GLUCOSE 84 mg/dL Normal (applies [facility] NONFASTING,SERUM to non-numeric (Ammir results) [place] Physician) SODIUM, SERUM 140 Normal (applies [facility] mEq/L to non-numeric (Ammir results) [place] Physician) POTASSIUM, SERUM 4.0 Normal (applies [facility] mEq/L to non-numeric (Ammir results) [place] Physician) CHLORIDE, SERUM 104 Normal (applies [facility] mEq/L to non-numeric (Ammir results) [place] Physician) Carbon dioxide 25 mEq/L Normal (applies [facility] [VFr/PPres] in to non-numeric (Ammir Gas delivery results) [place] system Physician) Anion gap in 15 mEq/L Normal (applies [facility] Body fluid to non-numeric (Ammir results) [place] Physician) BLOOD UREA 14 mg/dL Normal (applies [facility] NITROGEN to non-numeric (Ammir results) [place] Physician) CREATININE, 1.00 Above high normal [facility] SERUM mg/dL (Ammir [place] Physician) BUN/CREATININE 14.00 Normal (applies [facility] RATIO to non-numeric (Ammir results) [place] Physician) CALCIUM, SERUM 9.0 Normal (applies [facility] mg/dL to non-numeric (Ammir results) [place] Physician) TOTAL PROTEIN 7.7 g/dL Normal (applies [facility] to non-numeric (Ammir results) [place] Physician) Microalbumin 4.4 g/dL Normal (applies [facility] [Mass/time] in to non-numeric (Ammir Urine collected results) [place] for unspecified Physician) duration Globulin 3.3 gldl Normal (applies [facility] [Mass/time] in to non-numeric (Ammir 24 hour Urine results) [place] Physician) A/G RATIO 1.33 Normal (applies [facility] g/dl to non-numeric (Ammir results) [place] Physician) BILIRUBIN, TOTAL 2.8 Above high normal [facility] N mg/dL (Ammir [place] Physician) ALKALINE 84 U/L Normal (applies [facility] PHOSPHATASE, ALP to non-numeric (Ammir results) [place] Physician) ALT (SGPT) 9 U/L Below low normal [facility] (Ammir [place] Physician) AST 21 U/L Normal (applies [facility] to non-numeric (Ammir results) [place] Physician) EGFR NON AFR 56 Above high normal [facility] SOMALI mL/min/1 (Ammir .73m2 [place] Physician) EGFR AFR 68 Above high normal [facility] SOMALI mL/min/1 (Ammir .73m2 [place] Physician) ID Date Data Source [id number] 06/27/2018 12:00:00 AM EDT [facility] (Ammir [place] Physician) Name Value Range Interpretation Description Data Sup porting Code Source(s) Document(s ) WBC 11.0 Normal (applies [facility] 10(3)/uL to non-numeric (Ammir results) [place] Physician) RBC 4.5 Normal (applies [facility] 10(6)/uL to non-numeric (Ammir results) [place] Physician) Hemoglobin 13.7 g/dL Normal (applies [facility] [Mass/volume] to non-numeric (Ammir in Mixed venous results) [place] blood by Physician) Oximetry Hematocrit 40.8 % Normal (applies [facility] [Pure volume to non-numeric (Ammir fraction] of results) [place] Blood by Physician) Automated count MCV 89.9 fL Normal (applies [facility] to non-numeric (Ammir results) [place] Physician) MCH 30 pg Normal (applies [facility] to non-numeric (Ammir results) [place] Physician) MCHC 34 g/dL Normal (applies [facility] to non-numeric (Ammir results) [place] Physician) RDWSD 41.9 fL Normal (applies [facility] to non-numeric (Ammir results) [place] Physician) RDWCV 13.0 % Normal (applies [facility] to non-numeric (Ammir results) [place] Physician) Platelet Count 237 Normal (applies [facility] 10(3)/uL to non-numeric (Ammir results) [place] Physician) MPV 11.2 fL Normal (applies [facility] to non-numeric (Ammir results) [place] Physician) Neutrophil Abs 7.81 Above high normal [facility] 10(3)/uL (Ammir [place] Physician) Lymphocyte Abs 1.92 Normal (applies [facility] 10(3)/uL to non-numeric (Ammir results) [place] Physician) Monocyte Abs 1.10 Above high normal [facility] 10(3)/uL (Ammir [place] Physician) Eosinophil Abs 0.02 Normal (applies [facility] 10(3)/uL to non-numeric (Ammir results) [place] Physician) Neutrophil % 71.30 % Normal (applies [facility] to non-numeric (Ammir results) [place] Physician) Lymphocyte % 18 % Below low normal [facility] (Ammir [place] Physician) Monocyte % 10.0 % Normal (applies [facility] to non-numeric (Ammir results) [place] Physician) Eosinophil % 0.2 % Normal (applies [facility] to non-numeric (Ammir results) [place] Physician) Basophil % 0.3 % Normal (applies [facility] to non-numeric (Ammir results) [place] Physician) Immature 0.70 % Above high normal [facility] Granulocyte % (Ammir [place] Physician) ID Date Data Source [id number] 06/27/2018 12:00:00 AM EDT [facility] (Ammir [place] Physician) Name Value Range Interpretation Description Data Sup porting Code Source(s) Document(s ) CRP, HIGH 225.89 Above high normal [facility] SENSITIVITY mg/L (Ammir [place] Physician) ID Date Data Source [id number] 06/27/2018 12:00:00 AM EDT [facility] (Ammir [place] Physician) Name Value Range Interpretation Code Description Data Ning rce(s) Supporting Document(s ) ESR 49 mm/hr Above high normal [facility] (Ammi r [place] Physician) ID Date Data Source [id number] 06/27/2018 12:00:00 AM EDT [facility] (Ammir [place] Physician) Name Value Range Interpretation Description Data Sup porting Code Source(s) Document(s ) GLUCOSE 84 mg/dL Normal (applies [facility] NONFASTING,SERUM to non-numeric (Ammir results) [facility] Physician) SODIUM, SERUM 140 Normal (applies [facility] mEq/L to non-numeric (Ammir results) [facility] Physician) POTASSIUM, SERUM 4.0 Normal (applies [facility] mEq/L to non-numeric (Ammir results) [facility] Physician) CHLORIDE, SERUM 104 Normal (applies [facility] mEq/L to non-numeric (Ammir results) [facility] Physician) Carbon dioxide 25 mEq/L Normal (applies [facility] [VFr/PPres] in to non-numeric (Ammir Gas delivery results) [facility] system Physician) Anion gap in 15 mEq/L Normal (applies [facility] Body fluid to non-numeric (Ammir results) [facility] Physician) BLOOD UREA 14 mg/dL Normal (applies [facility] NITROGEN to non-numeric (Ammir results) [facility] Physician) CREATININE, 1.00 Above high normal [facility] SERUM mg/dL (Ammir [facility] Physician) BUN/CREATININE 14.00 Normal (applies [facility] RATIO to non-numeric (Ammir results) [facility] Physician) CALCIUM, SERUM 9.0 Normal (applies [facility] mg/dL to non-numeric (Ammir results) [facility] Physician) TOTAL PROTEIN 7.7 g/dL Normal (applies [facility] to non-numeric (Ammir results) [facility] Physician) Microalbumin 4.4 g/dL Normal (applies [facility] [Mass/time] in to non-numeric (Ammir Urine collected results) [facility] for unspecified Physician) duration Globulin 3.3 gldl Normal (applies [facility] [Mass/time] in to non-numeric (Ammir 24 hour Urine results) [facility] Physician) A/G RATIO 1.33 Normal (applies [facility] g/dl to non-numeric (Ammir results) [facility] Physician) BILIRUBIN, TOTAL 2.8 Above high normal [facility] N mg/dL (Ammir [facility] Physician) ALKALINE 84 U/L Normal (applies [facility] PHOSPHATASE, ALP to non-numeric (Ammir results) [facility] Physician) ALT (SGPT) 9 U/L Below low normal [facility] (Ammir [facility] Physician) AST 21 U/L Normal (applies [facility] to non-numeric (Ammir results) [facility] Physician) EGFR NON AFR 56 Above high normal [facility] SOMALI mL/min/1 (Ammir .73m2 [facility] Physician) EGFR AFR 68 Above high normal [facility] SOMALI mL/min/1 (Ammir .73m2 [facility] Physician) ID Date Data Source [id number] 06/27/2018 12:00:00 AM EDT [facility] (Ammir [facility] Phys[facility]) Name Value Range Interpretation Description Data Sup porting Code Source(s) Document(s ) CRP, HIGH 225.89 Above high normal [facility] SENSITIVITY mg/L (Ammir [facility] Physician) ID Date Data Source [id number] 06/27/2018 12:00:00 AM EDT [facility] (Ammir [facility] Phys[facility]) Name Value Range Interpretation Code Description Data Ning rce(s) Supporting Document(s ) ESR 49 mm/hr Above high normal [facility] (Ammi r [facility] Physician) ID Date Data Source [id number] 06/27/2018 12:00:00 AM EDT [facility] (Ammir [facility] Phys[facility]) Name Value Range Interpretation Description Data Sup porting Code Source(s) Document(s ) GLUCOSE 84 mg/dL Normal (applies [facility] NONFASTING,SERUM to non-numeric (Ammir results) [facility] Physician) SODIUM, SERUM 140 Normal (applies [facility] mEq/L to non-numeric (Ammir results) [facility] Physician) POTASSIUM, SERUM 4.0 Normal (applies [facility] mEq/L to non-numeric (Ammir results) [facility] Physician) CHLORIDE, SERUM 104 Normal (applies [facility] mEq/L to non-numeric (Ammir results) [facility] Physician) Carbon dioxide 25 mEq/L Normal (applies [facility] [VFr/PPres] in to non-numeric (Ammir Gas delivery results) [facility] system Physician) Anion gap in 15 mEq/L Normal (applies [facility] Body fluid to non-numeric (Ammir results) [facility] Physician) BLOOD UREA 14 mg/dL Normal (applies [facility] NITROGEN to non-numeric (Ammir results) [facility] Physician) CREATININE, 1.00 Above high normal [facility] SERUM mg/dL (Ammir [facility] Physician) BUN/CREATININE 14.00 Normal (applies [facility] RATIO to non-numeric (Ammir results) [facility] Physician) CALCIUM, SERUM 9.0 Normal (applies [facility] mg/dL to non-numeric (Ammir results) [facility] Physician) TOTAL PROTEIN 7.7 g/dL Normal (applies [facility] to non-numeric (Ammir results) [facility] Physician) Microalbumin 4.4 g/dL Normal (applies [facility] [Mass/time] in to non-numeric (Ammir Urine collected results) [place] for unspecified Physician) duration Globulin 3.3 gldl Normal (applies [facility] [Mass/time] in to non-numeric (Ammir 24 hour Urine results) [facility] Physician) A/G RATIO 1.33 Normal (applies [facility] g/dl to non-numeric (Ammir results) [facility] Physician) BILIRUBIN, TOTAL 2.8 Above high normal [facility] N mg/dL (Ammir [facility] Physician) ALKALINE 84 U/L Normal (applies [facility] PHOSPHATASE, ALP to non-numeric (Ammir results) [facility] Physician) ALT (SGPT) 9 U/L Below low normal [facility] (Ammir [facility] Physician) AST 21 U/L Normal (applies [facility] to non-numeric (Ammir results) [facility] Physician) EGFR NON AFR 56 Above high normal [facility] SOMALI mL/min/1 (Ammir .73m2 [facility] Physician) EGFR AFR 68 Above high normal [facility] SOMALI mL/min/1 (Ammir .73m2 [facility] Physician) ID Date Data Source [id number] 06/27/2018 12:00:00 AM EDT [facility] (Ammir [facility] Phys[facility]) Name Value Range Interpretation Description Data Sup porting Code Source(s) Document(s ) WBC 11.0 Normal (applies [facility] 10(3)/uL to non-numeric (Ammir results) [facility] Physician) RBC 4.5 Normal (applies [facility] 10(6)/uL to non-numeric (Ammir results) [facility] Physician) Hemoglobin 13.7 g/dL Normal (applies [facility] [Mass/volume] to non-numeric (Ammir in Mixed venous results) [place] blood by Physician) Oximetry Hematocrit 40.8 % Normal (applies [facility] [Pure volume to non-numeric (Ammir fraction] of results) [facility] Blood by Physician) Automated count MCV 89.9 fL Normal (applies [facility] to non-numeric (Ammir results) [facility] Physician) MCH 30 pg Normal (applies [facility] to non-numeric (Ammir results) [facility] Physician) MCHC 34 g/dL Normal (applies [facility] to non-numeric (Ammir results) [facility] Physician) RDWSD 41.9 fL Normal (applies [facility] to non-numeric (Ammir results) [facility] Physician) RDWCV 13.0 % Normal (applies [facility] to non-numeric (Ammir results) [facility] Physician) Platelet Count 237 Normal (applies [facility] 10(3)/uL to non-numeric (Ammir results) [facility] Physician) MPV 11.2 fL Normal (applies [facility] to non-numeric (Ammir results) [facility] Physician) Neutrophil Abs 7.81 Above high normal [facility] 10(3)/uL (Ammir [facility] Phys[facility]) Lymphocyte Abs 1.92 Normal (applies [facility] 10(3)/uL to non-numeric (Ammir results) [facility] Physician) Monocyte Abs 1.10 Above high normal [facility] 10(3)/uL (Ammir [facility] Physician) Eosinophil Abs 0.02 Normal (applies [facility] 10(3)/uL to non-numeric (Ammir results) [facility] Physician) Neutrophil % 71.30 % Normal (applies [facility] to non-numeric (Ammir results) [facility] Physician) Lymphocyte % 18 % Below low normal [facility] (Ammir [facility] Physician) Monocyte % 10.0 % Normal (applies [facility] to non-numeric (Ammir results) [facility] Physician) Eosinophil % 0.2 % Normal (applies [facility] to non-numeric (Ammir results) [facility] Physician) Basophil % 0.3 % Normal (applies [facility] to non-numeric (Ammir results) [facility] Physician) Immature 0.70 % Above high normal [facility] Granulocyte % (Ammir [facility] Physician) ID Date Data Source [id number] 06/27/2018 12:00:00 AM EDT [facility] (Ammir [facility] Phys[facility]) Name Value Range Interpretation Description Data Sup porting Code Source(s) Document(s ) WBC 11.0 Normal (applies [facility] 10(3)/uL to non-numeric (Ammir results) [facility] Physician) RBC 4.5 Normal (applies [facility] 10(6)/uL to non-numeric (Ammir results) [facility] Physician) Hemoglobin 13.7 g/dL Normal (applies [facility] [Mass/volume] to non-numeric (Ammir in Mixed venous results) [place] blood by Physician) Oximetry Hematocrit 40.8 % Normal (applies [facility] [Pure volume to non-numeric (Ammir fraction] of results) [facility] Blood by Physician) Automated count MCV 89.9 fL Normal (applies [facility] to non-numeric (Ammir results) [facility] Physician) MCH 30 pg Normal (applies [facility] to non-numeric (Ammir results) [facility] Physician) MCHC 34 g/dL Normal (applies [facility] to non-numeric (Ammir results) [facility] Physician) RDWSD 41.9 fL Normal (applies [facility] to non-numeric (Ammir results) [facility] Physician) RDWCV 13.0 % Normal (applies [facility] to non-numeric (Ammir results) [facility] Physician) Platelet Count 237 Normal (applies [facility] 10(3)/uL to non-numeric (Ammir results) [facility] Physician) MPV 11.2 fL Normal (applies [facility] to non-numeric (Ammir results) [facility] Physician) Neutrophil Abs 7.81 Above high normal [facility] 10(3)/uL (Ammir [facility] Physician) Lymphocyte Abs 1.92 Normal (applies [facility] 10(3)/uL to non-numeric (Ammir results) [facility] Physician) Monocyte Abs 1.10 Above high normal [facility] 10(3)/uL (Ammir [facility] Physician) Eosinophil Abs 0.02 Normal (applies [facility] 10(3)/uL to non-numeric (Ammir results) [facility] Physician) Neutrophil % 71.30 % Normal (applies [facility] to non-numeric (Ammir results) [facility] Physician) Lymphocyte % 18 % Below low normal [facility] (Ammir [facility] Physician) Monocyte % 10.0 % Normal (applies [facility] to non-numeric (Ammir results) [facility] Physician) Eosinophil % 0.2 % Normal (applies [facility] to non-numeric (Ammir results) [facility] Physician) Basophil % 0.3 % Normal (applies [facility] to non-numeric (Ammir results) [facility] Physician) Immature 0.70 % Above high normal [facility] Granulocyte % (Ammir [facility] Physician) ID Date Data Source [id number] 06/15/2018 12:00:00 AM EDT [facility] (Ammir [facility] Phys[facility]) Name Value Range Interpretation Description Data Sup porting Code Source(s) Document(s ) T4 FREE, 1.49 Normal (applies to [facility] THYROXINE ng/dL non-numeric (Ammir results) [facility] Physician) TSH,3RD 2.21 Normal (applies to [facility] GENERATION uIU/mL non-numeric (Ammir results) [facility] Physician) ID Date Data Source [id number] 06/15/2018 12:00:00 AM EDT [facility] (Ammir [facility] Phys[facility]) Name Value Range Interpretation Description Data Sup porting Code Source(s) Document(s ) Ferritin 21.6 Normal (applies to [facility] (Amm ir [Interpretat ng/mL non-numeric [place] ion] in results) Physician) Blood ID Date Data Source [id number] 06/15/2018 12:00:00 AM EDT [facility] (Ammir [facility] Physician) Name Value Range Interpretation Description Data Sup porting Code Source(s) Document(s ) Transferrin 365 mg/dL Normal (applies [facility] [Mass/time] in to non-numeric (Ammir 24 hour Urine results) [facility] Physician) TIBC 511.8 Above high normal [facility] ug/dL (Ammir [facility] Physician) UIBC 429.8 Above high normal [facility] ug/dL (Ammir [facility] Physician) %SATURATION 16.0 % Normal (applies [facility] to non-numeric (Ammir results) [facility] Physician) ID Date Data Source [id number] 06/15/2018 12:00:00 AM EDT [facility] (Ammir [facility] Physician) Name Value Range Interpretation Description Data Sup porting Code Source(s) Document(s ) FOLATE SERUM 12 ng/mL Above high normal [facility] (A mmir [facility] Physician) VITAMIN B12 430 pg/mL Normal (applies to [facility] (A mmir non-numeric [place] results) Physician) ID Date Data Source [id number] 06/15/2018 12:00:00 AM EDT [facility] (Ammir [facility] Physician) Name Value Range Interpretation Description Data Sup porting Code Source(s) Document(s ) VITAMIN D 27.52 Below low normal [facility] (Ammir 25-HYDROXY ng/mL [facility] Physician) ID Date Data Source [id number] 06/15/2018 12:00:00 AM EDT [facility] (Ammir [facility] Physician) Name Value Range Interpretation Description Data Sup porting Code Source(s) Document(s ) Cholesterol 190 Normal (applies [facility] [Moles/volume] mg/dL to non-numeric (Ammir in Pericardial results) [facility] fluid Physician) LDL CALCULATION 96.4 Normal (applies [facility] mg/dL to non-numeric (Ammir results) [facility] Physician) CHOL/HDL RATIO 2.44 Normal (applies [facility] ratio to non-numeric (Ammir results) [facility] Physician) HDL CHOLESTEROL 78 mg/dL Above high normal [facility] (Ammir [facility] Physician) VLDL CALCULATION 15.6 Normal (applies [facility] mg/dl to non-numeric (Ammir results) [facility] Physician) TRIGLYCERIDES 78 mg/dL Normal (applies [facility] to non-numeric (Ammir results) [facility] Physician) ID Date Data Source [id number] 06/15/2018 12:00:00 AM EDT [facility] (Ammir [facility] Physician) Name Value Range Interpretation Code Description Data Ning rce(s) Supporting Document(s ) IRON, 82 ug/dL Normal (applies to [facility] (Amm ir TOTAL non-numeric [place] results) Physician) ID Date Data Source [id number] 06/15/2018 12:00:00 AM EDT [facility] (Ammir [facility] Physician) Name Value Range Interpretation Description Data Sup porting Code Source(s) Document(s ) GLUCOSE 69 mg/dL Normal (applies [facility] NONFASTING,SERUM to non-numeric (Ammir results) [facility] Physician) SODIUM, SERUM 140 Normal (applies [facility] mEq/L to non-numeric (Ammir results) [facility] Physician) POTASSIUM, SERUM 4.5 Normal (applies [facility] mEq/L to non-numeric (Ammir results) [facility] Physician) CHLORIDE, SERUM 106 Normal (applies [facility] mEq/L to non-numeric (Ammir results) [facility] Physician) Carbon dioxide 23 mEq/L Normal (applies [facility] [VFr/PPres] in to non-numeric (Ammir Gas delivery results) [facility] system Physician) Anion gap in 15.5 Normal (applies [facility] Body fluid mEq/L to non-numeric (Ammir results) [facility] Physician) BLOOD UREA 15 mg/dL Normal (applies [facility] NITROGEN to non-numeric (Ammir results) [facility] Physician) CREATININE, 0.90 Above high normal [facility] SERUM mg/dL (Ammir [facility] Physician) BUN/CREATININE 16.67 Normal (applies [facility] RATIO to non-numeric (Ammir results) [facility] Physician) CALCIUM, SERUM 9.4 Normal (applies [facility] mg/dL to non-numeric (Ammir results) [facility] Physician) TOTAL PROTEIN 7.7 g/dL Normal (applies [facility] to non-numeric (Ammir results) [facility] Physician) Microalbumin 4.4 g/dL Normal (applies [facility] [Mass/time] in to non-numeric (Ammir Urine collected results) [place] for unspecified Physician) duration Globulin 3.3 gldl Normal (applies [facility] [Mass/time] in to non-numeric (Ammir 24 hour Urine results) [facility] Physician) A/G RATIO 1.33 Normal (applies [facility] g/dl to non-numeric (Ammir results) [facility] Physician) BILIRUBIN, TOTAL 1.3 Above high normal [facility] N mg/dL (Ammir [facility] Physician) ALKALINE 75 U/L Normal (applies [facility] PHOSPHATASE, ALP to non-numeric (Ammir results) [facility] Physician) ALT (SGPT) 11 U/L Normal (applies [facility] to non-numeric (Ammir results) [facility] Physician) AST 23 U/L Normal (applies [facility] to non-numeric (Ammir results) [facility] Physician) EGFR NON AFR 63 Above high normal [facility] SOMALI mL/min/1 (Ammir .73m2 [facility] Physician) EGFR AFR 76 Above high normal [facility] SOMALI mL/min/1 (Ammir .73m2 [facility] Physician) ID Date Data Source [id number] 06/15/2018 12:00:00 AM EDT [facility] (Ammir [facility] Physician) Name Value Range Interpretation Description Data Sup porting Code Source(s) Document(s ) WBC 6.1 Normal (applies [facility] 10(3)/uL to non-numeric (Ammir results) [facility] Physician) RBC 4.4 Normal (applies [facility] 10(6)/uL to non-numeric (Ammir results) [facility] Physician) Hemoglobin 13.8 g/dL Normal (applies [facility] [Mass/volume] to non-numeric (Ammir in Mixed venous results) [place] blood by Physician) Oximetry Hematocrit 40.5 % Normal (applies [facility] [Pure volume to non-numeric (Ammir fraction] of results) [place] Blood by Physician) Automated count MCV 91.8 fL Normal (applies [facility] to non-numeric (Ammir results) [facility] Physician) MCH 31 pg Normal (applies [facility] to non-numeric (Ammir results) [facility] Physician) MCHC 34 g/dL Normal (applies [facility] to non-numeric (Ammir results) [facility] Physician) RDWSD 43.6 fL Normal (applies [facility] to non-numeric (Ammir results) [facility] Physician) RDWCV 13.1 % Normal (applies [facility] to non-numeric (Ammir results) [facility] Physician) Platelet Count 240 Normal (applies [facility] 10(3)/uL to non-numeric (Ammir results) [facility] Physician) MPV 11.5 fL Normal (applies [facility] to non-numeric (Ammir results) [facility] Physician) Neutrophil Abs 3.10 Normal (applies [facility] 10(3)/uL to non-numeric (Ammir results) [facility] Physician) Lymphocyte Abs 2.12 Normal (applies [facility] 10(3)/uL to non-numeric (Ammir results) [facility] Physician) Monocyte Abs 0.73 Normal (applies [facility] 10(3)/uL to non-numeric (Ammir results) [facility] Physician) Eosinophil Abs 0.06 Normal (applies [facility] 10(3)/uL to non-numeric (Ammir results) [facility] Physician) Neutrophil % 51.10 % Normal (applies [facility] to non-numeric (Ammir results) [facility] Physician) Lymphocyte % 35 % Normal (applies [facility] to non-numeric (Ammir results) [facility] Physician) Monocyte % 12.0 % Normal (applies [facility] to non-numeric (Ammir results) [facility] Physician) Eosinophil % 1.0 % Normal (applies [facility] to non-numeric (Ammir results) [facility] Physician) Basophil % 0.5 % Normal (applies [facility] to non-numeric (Ammir results) [facility] Physician) Immature 0.50 % Normal (applies [facility] Granulocyte % to non-numeric (Ammir results) [facility] Physician) ID Date Data Source [id number] 06/15/2018 12:00:00 AM EDT [facility] (Ammir [facility] Physician) Name Value Range Interpretation Description Data Sup porting Code Source(s) Document(s ) T4 FREE, 1.49 Normal (applies to [facility] THYROXINE ng/dL non-numeric (Ammir results) [facility] Physician) TSH,3RD 2.21 Normal (applies to [facility] GENERATION uIU/mL non-numeric (Ammir results) [facility] Physician) ID Date Data Source [id number] 06/15/2018 12:00:00 AM EDT [facility] (Ammir [facility] Physician) Name Value Range Interpretation Description Data Sup porting Code Source(s) Document(s ) Ferritin 21.6 Normal (applies to [facility] (Amm ir [Interpretat ng/mL non-numeric [place] ion] in results) Physician) Blood ID Date Data Source [id number] 06/15/2018 12:00:00 AM EDT [facility] (Ammir [facility] Physician) Name Value Range Interpretation Description Data Sup porting Code Source(s) Document(s ) Transferrin 365 mg/dL Normal (applies [facility] [Mass/time] in to non-numeric (Ammir 24 hour Urine results) [facility] Physician) TIBC 511.8 Above high normal [facility] ug/dL (Ammir [facility] Physician) UIBC 429.8 Above high normal [facility] ug/dL (Ammir [facility] Physician) %SATURATION 16.0 % Normal (applies [facility] to non-numeric (Ammir results) [facility] Physician) ID Date Data Source [id number] 06/15/2018 12:00:00 AM EDT [facility] (Ammir [facility] Physician) Name Value Range Interpretation Description Data Sup porting Code Source(s) Document(s ) FOLATE SERUM 12 ng/mL Above high normal [facility] (A mmir [place] Physician) VITAMIN B12 430 pg/mL Normal (applies to [facility] (A mmir non-numeric [place] results) Physician) ID Date Data Source [id number] 06/15/2018 12:00:00 AM EDT [facility] (Ammir [facility] Physician) Name Value Range Interpretation Description Data Sup porting Code Source(s) Document(s ) VITAMIN D 27.52 Below low normal [facility] (Ammir 25-HYDROXY ng/mL [facility] Physician) ID Date Data Source [id number] 06/15/2018 12:00:00 AM EDT [facility] (Ammir [facility] Physician) Name Value Range Interpretation Description Data Sup porting Code Source(s) Document(s ) Cholesterol 190 Normal (applies [facility] [Moles/volume] mg/dL to non-numeric (Ammir in Pericardial results) [facility] fluid Physician) LDL CALCULATION 96.4 Normal (applies [facility] mg/dL to non-numeric (Ammir results) [facility] Physician) CHOL/HDL RATIO 2.44 Normal (applies [facility] ratio to non-numeric (Ammir results) [facility] Physician) HDL CHOLESTEROL 78 mg/dL Above high normal [facility] (Ammir [facility] Physician) VLDL CALCULATION 15.6 Normal (applies [facility] mg/dl to non-numeric (Ammir results) [facility] Physician) TRIGLYCERIDES 78 mg/dL Normal (applies [facility] to non-numeric (Ammir results) [facility] Physician) ID Date Data Source [id number] 06/15/2018 12:00:00 AM EDT [facility] (Ammir [facility] Physician) Name Value Range Interpretation Code Description Data Ning rce(s) Supporting Document(s ) IRON, 82 ug/dL Normal (applies to [facility] (Amm ir TOTAL non-numeric [place] results) Physician) ID Date Data Source [id number] 06/15/2018 12:00:00 AM EDT [facility] (Ammir [facility] Physician) Name Value Range Interpretation Description Data Sup porting Code Source(s) Document(s ) GLUCOSE 69 mg/dL Normal (applies [facility] NONFASTING,SERUM to non-numeric (Ammir results) [facility] Physician) SODIUM, SERUM 140 Normal (applies [facility] mEq/L to non-numeric (Ammir results) [facility] Physician) POTASSIUM, SERUM 4.5 Normal (applies [facility] mEq/L to non-numeric (Ammir results) [facility] Physician) CHLORIDE, SERUM 106 Normal (applies [facility] mEq/L to non-numeric (Ammir results) [facility] Physician) Carbon dioxide 23 mEq/L Normal (applies [facility] [VFr/PPres] in to non-numeric (Ammir Gas delivery results) [facility] system Physician) Anion gap in 15.5 Normal (applies [facility] Body fluid mEq/L to non-numeric (Ammir results) [facility] Physician) BLOOD UREA 15 mg/dL Normal (applies [facility] NITROGEN to non-numeric (Ammir results) [facility] Physician) CREATININE, 0.90 Above high normal [facility] SERUM mg/dL (Ammir [facility] Physician) BUN/CREATININE 16.67 Normal (applies [facility] RATIO to non-numeric (Ammir results) [facility] Physician) CALCIUM, SERUM 9.4 Normal (applies [facility] mg/dL to non-numeric (Ammir results) [facility] Physician) TOTAL PROTEIN 7.7 g/dL Normal (applies [facility] to non-numeric (Ammir results) [facility] Physician) Microalbumin 4.4 g/dL Normal (applies [facility] [Mass/time] in to non-numeric (Ammir Urine collected results) [place] for unspecified Physician) duration Globulin 3.3 gldl Normal (applies [facility] [Mass/time] in to non-numeric (Ammir 24 hour Urine results) [facility] Physician) A/G RATIO 1.33 Normal (applies [facility] g/dl to non-numeric (Ammir results) [facility] Physician) BILIRUBIN, TOTAL 1.3 Above high normal [facility] N mg/dL (Ammir [place] Physician) ALKALINE 75 U/L Normal (applies [facility] PHOSPHATASE, ALP to non-numeric (Ammir results) [facility] Physician) ALT (SGPT) 11 U/L Normal (applies [facility] to non-numeric (Ammir results) [facility] Physician) AST 23 U/L Normal (applies [facility] to non-numeric (Ammir results) [facility] Physician) EGFR NON AFR 63 Above high normal [facility] SOMALI mL/min/1 (Ammir .73m2 [facility] Physician) EGFR AFR 76 Above high normal [facility] SOMALI mL/min/1 (Ammir .73m2 [facility] Physician) ID Date Data Source [id number] 06/15/2018 12:00:00 AM EDT [facility] (Ammir [facility] Physician) Name Value Range Interpretation Description Data Sup porting Code Source(s) Document(s ) WBC 6.1 Normal (applies [facility] 10(3)/uL to non-numeric (Ammir results) [facility] Physician) RBC 4.4 Normal (applies [facility] 10(6)/uL to non-numeric (Ammir results) [facility] Physician) Hemoglobin 13.8 g/dL Normal (applies [facility] [Mass/volume] to non-numeric (Ammir in Mixed venous results) [place] blood by Physician) Oximetry Hematocrit 40.5 % Normal (applies [facility] [Pure volume to non-numeric (Ammir fraction] of results) [place] Blood by Physician) Automated count MCV 91.8 fL Normal (applies [facility] to non-numeric (Ammir results) [facility] Physician) MCH 31 pg Normal (applies [facility] to non-numeric (Ammir results) [facility] Physician) MCHC 34 g/dL Normal (applies [facility] to non-numeric (Ammir results) [facility] Physician) RDWSD 43.6 fL Normal (applies [facility] to non-numeric (Ammir results) [facility] Physician) RDWCV 13.1 % Normal (applies [facility] to non-numeric (Ammir results) [facility] Physician) Platelet Count 240 Normal (applies [facility] 10(3)/uL to non-numeric (Ammir results) [facility] Physician) MPV 11.5 fL Normal (applies [facility] to non-numeric (Ammir results) [facility] Physician) Neutrophil Abs 3.10 Normal (applies [facility] 10(3)/uL to non-numeric (Ammir results) [facility] Physician) Lymphocyte Abs 2.12 Normal (applies [facility] 10(3)/uL to non-numeric (Ammir results) [facility] Physician) Monocyte Abs 0.73 Normal (applies [facility] 10(3)/uL to non-numeric (Ammir results) [facility] Physician) Eosinophil Abs 0.06 Normal (applies [facility] 10(3)/uL to non-numeric (Ammir results) [facility] Physician) Neutrophil % 51.10 % Normal (applies [facility] to non-numeric (Ammir results) [facility] Physician) Lymphocyte % 35 % Normal (applies [facility] to non-numeric (Ammir results) [facility] Physician) Monocyte % 12.0 % Normal (applies [facility] to non-numeric (Ammir results) [facility] Physician) Eosinophil % 1.0 % Normal (applies [facility] to non-numeric (Ammir results) [facility] Physician) Basophil % 0.5 % Normal (applies [facility] to non-numeric (Ammir results) [facility] Physician) Immature 0.50 % Normal (applies [facility] Granulocyte % to non-numeric (Ammir results) [facility] Physician) ID Date Data Source [id number] 06/15/2018 12:00:00 AM EDT [facility] (Ammir [facility] Physician) Name Value Range Interpretation Description Data Sup porting Code Source(s) Document(s ) T4 FREE, 1.49 Normal (applies to [facility] THYROXINE ng/dL non-numeric (Ammir results) [facility] Physician) TSH,3RD 2.21 Normal (applies to [facility] GENERATION uIU/mL non-numeric (Ammir results) [facility] Physician) ID Date Data Source [id number] 06/15/2018 12:00:00 AM EDT [facility] (Ammir [facility] Physician) Name Value Range Interpretation Description Data Sup porting Code Source(s) Document(s ) Ferritin 21.6 Normal (applies to [facility] (Amm ir [Interpretat ng/mL non-numeric [place] ion] in results) Physician) Blood ID Date Data Source [id number] 06/15/2018 12:00:00 AM EDT [facility] (Ammir [facility] Physician) Name Value Range Interpretation Description Data Sup porting Code Source(s) Document(s ) Transferrin 365 mg/dL Normal (applies [facility] [Mass/time] in to non-numeric (Ammir 24 hour Urine results) [facility] Physician) TIBC 511.8 Above high normal [facility] ug/dL (Ammir [facility] Physician) UIBC 429.8 Above high normal [facility] ug/dL (Ammir [facility] Physician) %SATURATION 16.0 % Normal (applies [facility] to non-numeric (Ammir results) [facility] Physician) ID Date Data Source [id number] 06/15/2018 12:00:00 AM EDT [facility] (Ammir [facility] Physician) Name Value Range Interpretation Description Data Sup porting Code Source(s) Document(s ) FOLATE SERUM 12 ng/mL Above high normal [facility] (A mmir [facility] Physician) VITAMIN B12 430 pg/mL Normal (applies to [facility] (A mmir non-numeric [facility] results) Physician) ID Date Data Source [id number] 06/15/2018 12:00:00 AM EDT [facility] (Ammir [facility] Physician) Name Value Range Interpretation Description Data Sup porting Code Source(s) Document(s ) VITAMIN D 27.52 Below low normal [facility] (Ammir 25-HYDROXY ng/mL [facility] Physician) ID Date Data Source [id number] 06/15/2018 12:00:00 AM EDT [facility] (Ammir [facility] Physician) Name Value Range Interpretation Description Data Sup porting Code Source(s) Document(s ) Cholesterol 190 Normal (applies [facility] [Moles/volume] mg/dL to non-numeric (Ammir in Pericardial results) [facility] fluid Physician) LDL CALCULATION 96.4 Normal (applies [facility] mg/dL to non-numeric (Ammir results) [facility] Physician) CHOL/HDL RATIO 2.44 Normal (applies [facility] ratio to non-numeric (Ammir results) [facility] Physician) HDL CHOLESTEROL 78 mg/dL Above high normal [facility] (Ammir [facility] Physician) VLDL CALCULATION 15.6 Normal (applies [facility] mg/dl to non-numeric (Ammir results) [facility] Physician) TRIGLYCERIDES 78 mg/dL Normal (applies [facility] to non-numeric (Ammir results) [facility] Physician) ID Date Data Source [id number] 06/15/2018 12:00:00 AM EDT [facility] (Ammir [facility] Physician) Name Value Range Interpretation Code Description Data Ning rce(s) Supporting Document(s ) IRON, 82 ug/dL Normal (applies to [facility] (Amm ir TOTAL non-numeric [facility] results) Physician) ID Date Data Source [id number] 06/15/2018 12:00:00 AM EDT [facility] (Ammir [facility] Physician) Name Value Range Interpretation Description Data Sup porting Code Source(s) Document(s ) GLUCOSE 69 mg/dL Normal (applies [facility] NONFASTING,SERUM to non-numeric (Ammir results) [facility] Physician) SODIUM, SERUM 140 Normal (applies [facility] mEq/L to non-numeric (Ammir results) [facility] Physician) POTASSIUM, SERUM 4.5 Normal (applies [facility] mEq/L to non-numeric (Ammir results) [facility] Physician) CHLORIDE, SERUM 106 Normal (applies [facility] mEq/L to non-numeric (Ammir results) [facility] Physician) Carbon dioxide 23 mEq/L Normal (applies [facility] [VFr/PPres] in to non-numeric (Ammir Gas delivery results) [facility] system Physician) Anion gap in 15.5 Normal (applies [facility] Body fluid mEq/L to non-numeric (Ammir results) [facility] Physician) BLOOD UREA 15 mg/dL Normal (applies [facility] NITROGEN to non-numeric (Ammir results) [facility] Physician) CREATININE, 0.90 Above high normal [facility] SERUM mg/dL (Ammir Wil[facility] Physician) BUN/CREATININE 16.67 Normal (applies [facility] RATIO to non-numeric (Ammir results) [facility] Physician) CALCIUM, SERUM 9.4 Normal (applies [facility] mg/dL to non-numeric (Ammir results) [facility] Physician) TOTAL PROTEIN 7.7 g/dL Normal (applies [facility] to non-numeric (Ammir results) [facility] Physician) Microalbumin 4.4 g/dL Normal (applies [facility] [Mass/time] in to non-numeric (Ammir Urine collected results) [facility] for unspecified Physician) duration Globulin 3.3 gldl Normal (applies [facility] [Mass/time] in to non-numeric (Ammir 24 hour Urine results) [facility] Physician) A/G RATIO 1.33 Normal (applies [facility] g/dl to non-numeric (Ammir results) [facility] Physician) BILIRUBIN, TOTAL 1.3 Above high normal [facility] N mg/dL (Ammir [facility] Physician) ALKALINE 75 U/L Normal (applies [facility] PHOSPHATASE, ALP to non-numeric (Ammir results) [facility] Physician) ALT (SGPT) 11 U/L Normal (applies [facility] to non-numeric (Ammir results) [facility] Physician) AST 23 U/L Normal (applies [facility] to non-numeric (Ammir results) [facility] Physician) EGFR NON AFR 63 Above high normal [facility] SOMALI mL/min/1 (Ammir .73m2 [facility] Physician) EGFR AFR 76 Above high normal [facility] SOMALI mL/min/1 (Ammir .73m2 [facility] Physician) ID Date Data Source [id number] 06/15/2018 12:00:00 AM EDT [facility] (Ammir [facility] Physician) Name Value Range Interpretation Description Data Sup porting Code Source(s) Document(s ) WBC 6.1 Normal (applies [facility] 10(3)/uL to non-numeric (Ammir results) [facility] Physician) RBC 4.4 Normal (applies [facility] 10(6)/uL to non-numeric (Ammir results) [facility] Physician) Hemoglobin 13.8 g/dL Normal (applies [facility] [Mass/volume] to non-numeric (Ammir in Mixed venous results) [facility] blood by Physician) Oximetry Hematocrit 40.5 % Normal (applies [facility] [Pure volume to non-numeric (Ammir fraction] of results) [facility] Blood by Physician) Automated count MCV 91.8 fL Normal (applies [facility] to non-numeric (Ammir results) [facility] Physician) MCH 31 pg Normal (applies [facility] to non-numeric (Ammir results) [facility] Physician) MCHC 34 g/dL Normal (applies [facility] to non-numeric (Ammir results) [facility] Physician) RDWSD 43.6 fL Normal (applies [facility] to non-numeric (Ammir results) [facility] Physician) RDWCV 13.1 % Normal (applies [facility] to non-numeric (Ammir results) [facility] Physician) Platelet Count 240 Normal (applies [facility] 10(3)/uL to non-numeric (Ammir results) [facility] Physician) MPV 11.5 fL Normal (applies [facility] to non-numeric (Ammir results) [facility] Physician) Neutrophil Abs 3.10 Normal (applies [facility] 10(3)/uL to non-numeric (Ammir results) [facility] Physician) Lymphocyte Abs 2.12 Normal (applies [facility] 10(3)/uL to non-numeric (Ammir results) [facility] Physician) Monocyte Abs 0.73 Normal (applies [facility] 10(3)/uL to non-numeric (Ammir results) [facility] Physician) Eosinophil Abs 0.06 Normal (applies [facility] 10(3)/uL to non-numeric (Ammir results) [facility] Physician) Neutrophil % 51.10 % Normal (applies [facility] to non-numeric (Ammir results) [facility] Physician) Lymphocyte % 35 % Normal (applies [facility] to non-numeric (Ammir results) [facility] Physician) Monocyte % 12.0 % Normal (applies [facility] to non-numeric (Ammir results) [facility] Physician) Eosinophil % 1.0 % Normal (applies [facility] to non-numeric (Ammir results) [facility] Physician) Basophil % 0.5 % Normal (applies [facility] to non-numeric (Ammir results) [facility] Physician) Immature 0.50 % Normal (applies [facility] Granulocyte % to non-numeric (Ammir results) [facility] Physician) ID Date Data Source [id number] 06/15/2018 12:00:00 AM EDT [facility] (Ammir [facility] Physician) Name Value Range Interpretation Description Data Sup porting Code Source(s) Document(s ) T4 FREE, 1.49 Normal (applies to [facility] THYROXINE ng/dL non-numeric (Ammir results) [facility] Physician) TSH,3RD 2.21 Normal (applies to [facility] GENERATION uIU/mL non-numeric (Ammir results) [facility] Physician) ID Date Data Source [id number] 06/15/2018 12:00:00 AM EDT [facility] (Ammir [facility] Physician) Name Value Range Interpretation Description Data Sup porting Code Source(s) Document(s ) Ferritin 21.6 Normal (applies to [facility] (Amm ir [Interpretat ng/mL non-numeric [facility] ion] in results) Physician) Blood ID Date Data Source [id number] 06/15/2018 12:00:00 AM EDT [facility] (Ammir [facility] Physician) Name Value Range Interpretation Description Data Sup porting Code Source(s) Document(s ) Transferrin 365 mg/dL Normal (applies [facility] [Mass/time] in to non-numeric (Ammir 24 hour Urine results) [facility] Physician) TIBC 511.8 Above high normal [facility] ug/dL (Ammir [facility] Physician) UIBC 429.8 Above high normal [facility] ug/dL (Ammir Wil[facility] Physician) %SATURATION 16.0 % Normal (applies [facility] to non-numeric (Ammir results) [facility] Physician) ID Date Data Source [id number] 06/15/2018 12:00:00 AM EDT [facility] (Ammir [facility] Physician) Name Value Range Interpretation Description Data Sup porting Code Source(s) Document(s ) FOLATE SERUM 12 ng/mL Above high normal [facility] (A mmir [facility] Physician) VITAMIN B12 430 pg/mL Normal (applies to [facility] (A mmir non-numeric [facility] results) Physician) ID Date Data Source [id number] 06/15/2018 12:00:00 AM EDT [facility] (Ammir [facility] Physician) Name Value Range Interpretation Description Data Sup porting Code Source(s) Document(s ) VITAMIN D 27.52 Below low normal [facility] (Ammir 25-HYDROXY ng/mL [facility] Physician) ID Date Data Source [id number] 06/15/2018 12:00:00 AM EDT [facility] (Ammir [facility] Physician) Name Value Range Interpretation Description Data Sup porting Code Source(s) Document(s ) Cholesterol 190 Normal (applies [facility] [Moles/volume] mg/dL to non-numeric (Ammir in Pericardial results) [facility] fluid Physician) LDL CALCULATION 96.4 Normal (applies [facility] mg/dL to non-numeric (Ammir results) [facility] Physician) CHOL/HDL RATIO 2.44 Normal (applies [facility] ratio to non-numeric (Ammir results) [facility] Physician) HDL CHOLESTEROL 78 mg/dL Above high normal [facility] (Ammir [facility] Physician) VLDL CALCULATION 15.6 Normal (applies [facility] mg/dl to non-numeric (Ammir results) [facility] Physician) TRIGLYCERIDES 78 mg/dL Normal (applies [facility] to non-numeric (Ammir results) [facility] Physician) ID Date Data Source [id number] 06/15/2018 12:00:00 AM EDT [facility] (Ammir [facility] Physician) Name Value Range Interpretation Code Description Data Ning rce(s) Supporting Document(s ) IRON, 82 ug/dL Normal (applies to [facility] (Amm ir TOTAL non-numeric [facility] results) Physician) ID Date Data Source [id number] 06/15/2018 12:00:00 AM EDT [facility] (Ammir [facility] Physician) Name Value Range Interpretation Description Data Sup porting Code Source(s) Document(s ) GLUCOSE 69 mg/dL Normal (applies [facility] NONFASTING,SERUM to non-numeric (Ammir results) [facility] Physician) SODIUM, SERUM 140 Normal (applies [facility] mEq/L to non-numeric (Ammir results) [facility] Physician) POTASSIUM, SERUM 4.5 Normal (applies [facility] mEq/L to non-numeric (Ammir results) [facility] Physician) CHLORIDE, SERUM 106 Normal (applies [facility] mEq/L to non-numeric (Ammir results) [facility] Physician) Carbon dioxide 23 mEq/L Normal (applies [facility] [VFr/PPres] in to non-numeric (Ammir Gas delivery results) [facility] system Physician) Anion gap in 15.5 Normal (applies [facility] Body fluid mEq/L to non-numeric (Ammir results) [facility] Physician) BLOOD UREA 15 mg/dL Normal (applies [facility] NITROGEN to non-numeric (Ammir results) [facility] Physician) CREATININE, 0.90 Above high normal [facility] SERUM mg/dL (Ammir [facility] Physician) BUN/CREATININE 16.67 Normal (applies [facility] RATIO to non-numeric (Ammir results) [facility] Physician) CALCIUM, SERUM 9.4 Normal (applies [facility] mg/dL to non-numeric (Ammir results) [facility] Physician) TOTAL PROTEIN 7.7 g/dL Normal (applies [facility] to non-numeric (Ammir results) [facility] Physician) Microalbumin 4.4 g/dL Normal (applies [facility] [Mass/time] in to non-numeric (Ammir Urine collected results) [facility] for unspecified Physician) duration Globulin 3.3 gldl Normal (applies [facility] [Mass/time] in to non-numeric (Ammir 24 hour Urine results) [facility] Physician) A/G RATIO 1.33 Normal (applies [facility] g/dl to non-numeric (Ammir results) [facility] Physician) BILIRUBIN, TOTAL 1.3 Above high normal [facility] N mg/dL (Ammir [facility] Physician) ALKALINE 75 U/L Normal (applies [facility] PHOSPHATASE, ALP to non-numeric (Ammir results) [facility] Physician) ALT (SGPT) 11 U/L Normal (applies [facility] to non-numeric (Ammir results) [facility] Physician) AST 23 U/L Normal (applies [facility] to non-numeric (Ammir results) [facility] Physician) EGFR NON AFR 63 Above high normal [facility] SOMALI mL/min/1 (Ammir .73m2 [facility] Physician) EGFR AFR 76 Above high normal [facility] SOMALI mL/min/1 (Ammir .73m2 [facility] Physician) ID Date Data Source [id number] 06/15/2018 12:00:00 AM EDT [facility] (Ammir [facility] Physician) Name Value Range Interpretation Description Data Sup porting Code Source(s) Document(s ) WBC 6.1 Normal (applies [facility] 10(3)/uL to non-numeric (Ammir results) [facility] Physician) RBC 4.4 Normal (applies [facility] 10(6)/uL to non-numeric (Ammir results) [facility] Physician) Hemoglobin 13.8 g/dL Normal (applies [facility] [Mass/volume] to non-numeric (Ammir in Mixed venous results) [facility] blood by Physician) Oximetry Hematocrit 40.5 % Normal (applies [facility] [Pure volume to non-numeric (Ammir fraction] of results) [facility] Blood by Physician) Automated count MCV 91.8 fL Normal (applies [facility] to non-numeric (Ammir results) [facility] Physician) MCH 31 pg Normal (applies [facility] to non-numeric (Ammir results) [facility] Physician) MCHC 34 g/dL Normal (applies [facility] to non-numeric (Ammir results) [facility] Physician) RDWSD 43.6 fL Normal (applies [facility] to non-numeric (Ammir results) [facility] Physician) RDWCV 13.1 % Normal (applies [facility] to non-numeric (Ammir results) [facility] Physician) Platelet Count 240 Normal (applies [facility] 10(3)/uL to non-numeric (Ammir results) [facility] Physician) MPV 11.5 fL Normal (applies [facility] to non-numeric (Ammir results) [facility] Physician) Neutrophil Abs 3.10 Normal (applies [facility] 10(3)/uL to non-numeric (Ammir results) [facility] Physician) Lymphocyte Abs 2.12 Normal (applies [facility] 10(3)/uL to non-numeric (Ammir results) [facility] Physician) Monocyte Abs 0.73 Normal (applies [facility] 10(3)/uL to non-numeric (Ammir results) [facility] Physician) Eosinophil Abs 0.06 Normal (applies [facility] 10(3)/uL to non-numeric (Ammir results) [facility] Physician) Neutrophil % 51.10 % Normal (applies [facility] to non-numeric (Ammir results) [facility] Physician) Lymphocyte % 35 % Normal (applies [facility] to non-numeric (Ammir results) [facility] Physician) Monocyte % 12.0 % Normal (applies [facility] to non-numeric (Ammir results) [facility] Physician) Eosinophil % 1.0 % Normal (applies [facility] to non-numeric (Ammir results) [facility] Physician) Basophil % 0.5 % Normal (applies [facility] to non-numeric (Ammir results) [facility] Physician) Immature 0.50 % Normal (applies [facility] Granulocyte % to non-numeric (Ammir results) [facility] Physician) ID Date Data Source [id number] 03/24/2018 12:00:00 AM EST [facility] (Ammir [facility] Physician) Name Value Range Interpretation Description Data Sup porting Code Source(s) Document(s ) GLUCOSE 64 mg/dL Below low normal [facility] NONFASTING,SERUM (Ammir [facility] Physician) SODIUM, SERUM 144 Normal (applies [facility] mEq/L to non-numeric (Ammir results) [facility] Physician) POTASSIUM, SERUM 4.6 Normal (applies [facility] mEq/L to non-numeric (Ammir results) [facility] Physician) CHLORIDE, SERUM 108 Normal (applies [facility] mEq/L to non-numeric (Ammir results) [facility] Physician) Carbon dioxide 24 mEq/L Normal (applies [facility] [VFr/PPres] in to non-numeric (Ammir Gas delivery results) [facility] system Physician) Anion gap in 16.6 Above high normal [facility] Body fluid mEq/L (Ammir [facility] Physician) BLOOD UREA 13 mg/dL Normal (applies [facility] NITROGEN to non-numeric (Ammir results) [facility] Physician) CREATININE, 0.90 Above high normal [facility] SERUM mg/dL (Ammir [facility] Physician) BUN/CREATININE 14.44 Normal (applies [facility] RATIO to non-numeric (Ammir results) [facility] Physician) CALCIUM, SERUM 9.4 Normal (applies [facility] mg/dL to non-numeric (Ammir results) [facility] Physician) TOTAL PROTEIN 7.1 g/dL Normal (applies [facility] to non-numeric (Ammir results) [facility] Physician) Microalbumin 4.6 g/dL Normal (applies [facility] [Mass/time] in to non-numeric (Ammir Urine collected results) [facility] for unspecified Physician) duration Globulin 2.5 gldl Normal (applies [facility] [Mass/time] in to non-numeric (Ammir 24 hour Urine results) [facility] Physician) A/G RATIO 1.84 Normal (applies [facility] g/dl to non-numeric (Ammir results) [facility] Physician) BILIRUBIN, TOTAL 1.3 Above high normal [facility] N mg/dL (Ammir [facility] Physician) ALKALINE 77 U/L Normal (applies [facility] PHOSPHATASE, ALP to non-numeric (Ammir results) [facility] Physician) ALT (SGPT) 5 U/L Below low normal [facility] (Ammir [facility] Physician) AST 18 U/L Normal (applies [facility] to non-numeric (Ammir results) [facility] Physician) EGFR NON AFR 63 Above high normal [facility] SOMALI mL/min/1 (Ammir .73m2 [facility] Physician) EGFR AFR 76 Above high normal [facility] SOMALI mL/min/1 (Ammir .73m2 [facility] Physician) ID Date Data Source [id number] 03/24/2018 12:00:00 AM EST [facility] (Ammir [facility] Physician) Name Value Range Interpretation Description Data Sup porting Code Source(s) Document(s ) Ferritin 34 ng/mL Normal (applies to [facility] (Amm ir [Interpretat non-numeric [facility] ion] in results) Physician) Blood ID Date Data Source [id number] 03/24/2018 12:00:00 AM EST [facility] (Ammir [facility] Physician) Name Value Range Interpretation Description Data Sup porting Code Source(s) Document(s ) WBC 7.3 Normal (applies [facility] 10(3)/uL to non-numeric (Ammir results) [facility] Physician) RBC 4.5 Normal (applies [facility] 10(6)/uL to non-numeric (Ammir results) [facility] Physician) Hemoglobin 13.6 g/dL Normal (applies [facility] [Mass/volume] to non-numeric (Ammir in Mixed venous results) [facility] blood by Physician) Oximetry Hematocrit 39.4 % Normal (applies [facility] [Pure volume to non-numeric (Ammir fraction] of results) [facility] Blood by Physician) Automated count MCV 88.5 fL Normal (applies [facility] to non-numeric (Ammir results) [facility] Physician) MCH 31 pg Normal (applies [facility] to non-numeric (Ammir results) [facility] Physician) MCHC 35 g/dL Normal (applies [facility] to non-numeric (Ammir results) [facility] Physician) RDWSD 47.9 fL Normal (applies [facility] to non-numeric (Ammir results) [facility] Physician) RDWCV 15.0 % Normal (applies [facility] to non-numeric (Ammir results) [facility] Physician) Platelet Count 288 Normal (applies [facility] 10(3)/uL to non-numeric (Ammir results) [facility] Physician) MPV 10.8 fL Normal (applies [facility] to non-numeric (Ammir results) [facility] Physician) Neutrophil Abs 4.10 Normal (applies [facility] 10(3)/uL to non-numeric (Ammir results) [facility] Physician) Lymphocyte Abs 2.16 Normal (applies [facility] 10(3)/uL to non-numeric (Ammir results) [facility] Physician) Monocyte Abs 0.76 Normal (applies [facility] 10(3)/uL to non-numeric (Ammir results) [facility] Physician) Eosinophil Abs 0.19 Normal (applies [facility] 10(3)/uL to non-numeric (Ammir results) [facility] Physician) Immature 0.04 Above high normal [facility] Granulocyte Abs 10(3)/uL (Ammir [facility] Physician) Neutrophil % 56.40 % Normal (applies [facility] to non-numeric (Ammir results) [facility] Physician) Lymphocyte % 30 % Normal (applies [facility] to non-numeric (Ammir results) [facility] Physician) Monocyte % 10.4 % Normal (applies [facility] to non-numeric (Ammir results) [facility] Physician) Eosinophil % 2.6 % Normal (applies [facility] to non-numeric (Ammir results) [facility] Physician) Basophil % 0.5 % Normal (applies [facility] to non-numeric (Ammir results) [facility] Physician) Immature 0.50 % Normal (applies [facility] Granulocyte % to non-numeric (Ammir results) [facility] Physician) ID Date Data Source [id number] 03/24/2018 12:00:00 AM EST [facility] (Ammir [facility] Physician) Name Value Range Interpretation Description Data Sup porting Code Source(s) Document(s ) IRON, TOTAL 101 ug/dL Normal (applies [facility] to non-numeric (Ammir results) [facility] Physician) Transferrin 334 mg/dL Normal (applies [facility] [Mass/time] in to non-numeric (Ammir 24 hour Urine results) [facility] Physician) TIBC 468.3 Above high normal [facility] ug/dL (Ammir [facility] Physician) UIBC 367.3 Normal (applies [facility] ug/dL to non-numeric (Ammir results) [facility] Physician) %SATURATION 21.6 % Normal (applies [facility] to non-numeric (Ammir results) [facility] Physician) ID Date Data Source [id number] 03/24/2018 12:00:00 AM EST [facility] (Ammir [facility] Physician) Name Value Range Interpretation Description Data Sup porting Code Source(s) Document(s ) GLUCOSE 64 mg/dL Below low normal [facility] NONFASTING,SERUM (Ammir [facility] Physician) SODIUM, SERUM 144 Normal (applies [facility] mEq/L to non-numeric (Ammir results) [facility] Physician) POTASSIUM, SERUM 4.6 Normal (applies [facility] mEq/L to non-numeric (Ammir results) [facility] Physician) CHLORIDE, SERUM 108 Normal (applies [facility] mEq/L to non-numeric (Ammir results) [facility] Physician) Carbon dioxide 24 mEq/L Normal (applies [facility] [VFr/PPres] in to non-numeric (Ammir Gas delivery results) [facility] system Physician) Anion gap in 16.6 Above high normal [facility] Body fluid mEq/L (Ammir [facility] Physician) BLOOD UREA 13 mg/dL Normal (applies [facility] NITROGEN to non-numeric (Ammir results) [facility] Physician) CREATININE, 0.90 Above high normal [facility] SERUM mg/dL (Ammir [facility] Physician) BUN/CREATININE 14.44 Normal (applies [facility] RATIO to non-numeric (Ammir results) [facility] Physician) CALCIUM, SERUM 9.4 Normal (applies [facility] mg/dL to non-numeric (Ammir results) [facility] Physician) TOTAL PROTEIN 7.1 g/dL Normal (applies [facility] to non-numeric (Ammir results) [facility] Physician) Microalbumin 4.6 g/dL Normal (applies [facility] [Mass/time] in to non-numeric (Ammir Urine collected results) [facility] for unspecified Physician) duration Globulin 2.5 gldl Normal (applies [facility] [Mass/time] in to non-numeric (Ammir 24 hour Urine results) [facility] Physician) A/G RATIO 1.84 Normal (applies [facility] g/dl to non-numeric (Ammir results) [facility] Physician) BILIRUBIN, TOTAL 1.3 Above high normal [facility] N mg/dL (Ammir [facility] Physician) ALKALINE 77 U/L Normal (applies [facility] PHOSPHATASE, ALP to non-numeric (Ammir results) [facility] Physician) ALT (SGPT) 5 U/L Below low normal [facility] (Ammir [facility] Physician) AST 18 U/L Normal (applies [facility] to non-numeric (Ammir results) [facility] Physician) EGFR NON AFR 63 Above high normal [facility] SOMALI mL/min/1 (Ammir .73m2 [facility] Physician) EGFR AFR 76 Above high normal [facility] SOMALI mL/min/1 (Ammir .73m2 [facility] Physician) ID Date Data Source [id number] 03/24/2018 12:00:00 AM EST [facility] (Ammir [facility] Physician) Name Value Range Interpretation Description Data Sup porting Code Source(s) Document(s ) Ferritin 34 ng/mL Normal (applies to [facility] (Amm ir [Interpretat non-numeric [place] ion] in results) Physician) Blood ID Date Data Source [id number] 03/24/2018 12:00:00 AM EST [facility] (Ammir [facility] Physician) Name Value Range Interpretation Description Data Sup porting Code Source(s) Document(s ) WBC 7.3 Normal (applies [facility] 10(3)/uL to non-numeric (Ammir results) [facility] Physician) RBC 4.5 Normal (applies [facility] 10(6)/uL to non-numeric (Ammir results) [facility] Physician) Hemoglobin 13.6 g/dL Normal (applies [facility] [Mass/volume] to non-numeric (Ammir in Mixed venous results) [facility] blood by Physician) Oximetry Hematocrit 39.4 % Normal (applies [facility] [Pure volume to non-numeric (Ammir fraction] of results) [facility] Blood by Physician) Automated count MCV 88.5 fL Normal (applies [facility] to non-numeric (Ammir results) [facility] Physician) MCH 31 pg Normal (applies [facility] to non-numeric (Ammir results) [facility] Physician) MCHC 35 g/dL Normal (applies [facility] to non-numeric (Ammir results) [facility] Physician) RDWSD 47.9 fL Normal (applies [facility] to non-numeric (Ammir results) [facility] Physician) RDWCV 15.0 % Normal (applies [facility] to non-numeric (Ammir results) [facility] Physician) Platelet Count 288 Normal (applies [facility] 10(3)/uL to non-numeric (Ammir results) [facility] Physician) MPV 10.8 fL Normal (applies [facility] to non-numeric (Ammir results) [facility] Physician) Neutrophil Abs 4.10 Normal (applies [facility] 10(3)/uL to non-numeric (Ammir results) [facility] Physician) Lymphocyte Abs 2.16 Normal (applies [facility] 10(3)/uL to non-numeric (Ammir results) [facility] Physician) Monocyte Abs 0.76 Normal (applies [facility] 10(3)/uL to non-numeric (Ammir results) [facility] Physician) Eosinophil Abs 0.19 Normal (applies [facility] 10(3)/uL to non-numeric (Ammir results) [facility] Physician) Immature 0.04 Above high normal [facility] Granulocyte Abs 10(3)/uL (Ammir [facility] Physician) Neutrophil % 56.40 % Normal (applies [facility] to non-numeric (Ammir results) [facility] Physician) Lymphocyte % 30 % Normal (applies [facility] to non-numeric (Ammir results) [facility] Physician) Monocyte % 10.4 % Normal (applies [facility] to non-numeric (Ammir results) [facility] Physician) Eosinophil % 2.6 % Normal (applies [facility] to non-numeric (Ammir results) [facility] Physician) Basophil % 0.5 % Normal (applies [facility] to non-numeric (Ammir results) [facility] Physician) Immature 0.50 % Normal (applies [facility] Granulocyte % to non-numeric (Ammir results) [facility] Physician) ID Date Data Source [id number] 03/24/2018 12:00:00 AM EST [facility] (Ammir [facility] Physician) Name Value Range Interpretation Description Data Sup porting Code Source(s) Document(s ) IRON, TOTAL 101 ug/dL Normal (applies [facility] to non-numeric (Ammir results) [facility] Physician) Transferrin 334 mg/dL Normal (applies [facility] [Mass/time] in to non-numeric (Ammir 24 hour Urine results) [facility] Physician) TIBC 468.3 Above high normal [facility] ug/dL ([facility]mm[facility] Physician) UIBC 367.3 Normal (applies [facility] ug/dL to non-numeric (Ammir results) [facility] Physician) %SATURATION 21.6 % Normal (applies [facility] to non-numeric (Ammir results) [facility] Physician) ID Date Data Source [id number] 03/24/2018 12:00:00 AM EST [facility] ([facility] Physician) Name Value Range Interpretation Description Data Sup porting Code Source(s) Document(s ) GLUCOSE 64 mg/dL Below low normal [facility] NONFASTING,SERUM (Ammir [facility] Physician) SODIUM, SERUM 144 Normal (applies [facility] mEq/L to non-numeric (Ammir results) [facility] Physician) POTASSIUM, SERUM 4.6 Normal (applies [facility] mEq/L to non-numeric (Ammir results) [facility] Physician) CHLORIDE, SERUM 108 Normal (applies [facility] mEq/L to non-numeric (Ammir results) [facility] Physician) Carbon dioxide 24 mEq/L Normal (applies [facility] [VFr/PPres] in to non-numeric (Ammir Gas delivery results) [facility] system Physician) Anion gap in 16.6 Above high normal [facility] Body fluid mEq/L ([facility]mmir [facility] Physician) BLOOD UREA 13 mg/dL Normal (applies [facility] NITROGEN to non-numeric (Ammir results) [facility] Physician) CREATININE, 0.90 Above high normal [facility] SERUM mg/dL (Ammir [facility] Physician) BUN/CREATININE 14.44 Normal (applies [facility] RATIO to non-numeric (Ammir results) [facility] Physician) CALCIUM, SERUM 9.4 Normal (applies [facility] mg/dL to non-numeric (Ammir results) [facility] Physician) TOTAL PROTEIN 7.1 g/dL Normal (applies [facility] to non-numeric (Ammir results) [facility] Physician) Microalbumin 4.6 g/dL Normal (applies [facility] [Mass/time] in to non-numeric (Ammir Urine collected results) [facility] for unspecified Physician) duration Globulin 2.5 gldl Normal (applies [facility] [Mass/time] in to non-numeric (Ammir 24 hour Urine results) [facility] Physician) A/G RATIO 1.84 Normal (applies [facility] g/dl to non-numeric (Ammir results) [facility] Physician) BILIRUBIN, TOTAL 1.3 Above high normal [facility] N mg/dL (Ammir [facility] Physician) ALKALINE 77 U/L Normal (applies [facility] PHOSPHATASE, ALP to non-numeric (Ammir results) [facility] Physician) ALT (SGPT) 5 U/L Below low normal [facility] (Ammir [facility] Physician) AST 18 U/L Normal (applies [facility] to non-numeric (Ammir results) [facility] Physician) EGFR NON AFR 63 Above high normal [facility] SOMALI mL/min/1 (Ammir .73m2 [facility] Physician) EGFR AFR 76 Above high normal [facility] SOMALI mL/min/1 (Ammir .73m2 [facility] Physician) ID Date Data Source [id number] 03/24/2018 12:00:00 AM EST [facility] ([facility] Phys[facility]) Name Value Range Interpretation Description Data Sup porting Code Source(s) Document(s ) Ferritin 34 ng/mL Normal (applies to [facility] (Amm ir [Interpretat non-numeric [place] ion] in results) Physician) Blood ID Date Data Source [id number] 03/24/2018 12:00:00 AM EST [facility] ([facility]mm[facility] Phys[facility]) Name Value Range Interpretation Description Data Sup porting Code Source(s) Document(s ) WBC 7.3 Normal (applies [facility] 10(3)/uL to non-numeric (Ammir results) [facility] Physician) RBC 4.5 Normal (applies [facility] 10(6)/uL to non-numeric (Ammir results) [facility] Physician) Hemoglobin 13.6 g/dL Normal (applies [facility] [Mass/volume] to non-numeric (Ammir in Mixed venous results) [place] blood by Physician) Oximetry Hematocrit 39.4 % Normal (applies [facility] [Pure volume to non-numeric (Ammir fraction] of results) [facility] Blood by Physician) Automated count MCV 88.5 fL Normal (applies [facility] to non-numeric (Ammir results) [facility] Physician) MCH 31 pg Normal (applies [facility] to non-numeric (Ammir results) [facility] Physician) MCHC 35 g/dL Normal (applies [facility] to non-numeric (Ammir results) [facility] Physician) RDWSD 47.9 fL Normal (applies [facility] to non-numeric (Ammir results) [facility] Physician) RDWCV 15.0 % Normal (applies [facility] to non-numeric (Ammir results) [facility] Physician) Platelet Count 288 Normal (applies [facility] 10(3)/uL to non-numeric (Ammir results) [facility] Physician) MPV 10.8 fL Normal (applies [facility] to non-numeric (Ammir results) [facility] Physician) Neutrophil Abs 4.10 Normal (applies [facility] 10(3)/uL to non-numeric (Ammir results) [facility] Physician) Lymphocyte Abs 2.16 Normal (applies [facility] 10(3)/uL to non-numeric (Ammir results) [facility] Physician) Monocyte Abs 0.76 Normal (applies [facility] 10(3)/uL to non-numeric (Ammir results) [facility] Physician) Eosinophil Abs 0.19 Normal (applies [facility] 10(3)/uL to non-numeric (Ammir results) [facility] Physician) Immature 0.04 Above high normal [facility] Granulocyte Abs 10(3)/uL (Ammir [facility] Physician) Neutrophil % 56.40 % Normal (applies [facility] to non-numeric (Ammir results) [facility] Physician) Lymphocyte % 30 % Normal (applies [facility] to non-numeric (Ammir results) [facility] Physician) Monocyte % 10.4 % Normal (applies [facility] to non-numeric (Ammir results) [facility] Physician) Eosinophil % 2.6 % Normal (applies [facility] to non-numeric (Ammir results) [facility] Physician) Basophil % 0.5 % Normal (applies [facility] to non-numeric (Ammir results) [facility] Physician) Immature 0.50 % Normal (applies [facility] Granulocyte % to non-numeric (Ammir results) [facility] Physician) ID Date Data Source [id number] 03/24/2018 12:00:00 AM EST [facility] ([facility]mmir [facility] Physician) Name Value Range Interpretation Description Data Sup porting Code Source(s) Document(s ) IRON, TOTAL 101 ug/dL Normal (applies [facility] to non-numeric (Ammir results) [facility] Physician) Transferrin 334 mg/dL Normal (applies [facility] [Mass/time] in to non-numeric (Ammir 24 hour Urine results) [facility] Physician) TIBC 468.3 Above high normal [facility] ug/dL (Ammir [facility] Physician) UIBC 367.3 Normal (applies [facility] ug/dL to non-numeric (Ammir results) [facility] Physician) %SATURATION 21.6 % Normal (applies [facility] to non-numeric (Ammir results) [facility] Physician) ID Date Data Source [id number] 03/24/2018 12:00:00 AM EST [facility] (Ammir [facility] Physician) Name Value Range Interpretation Description Data Sup porting Code Source(s) Document(s ) GLUCOSE 64 mg/dL Below low normal [facility] NONFASTING,SERUM (Ammir [facility] Physician) SODIUM, SERUM 144 Normal (applies [facility] mEq/L to non-numeric (Ammir results) [facility] Physician) POTASSIUM, SERUM 4.6 Normal (applies [facility] mEq/L to non-numeric (Ammir results) [facility] Physician) CHLORIDE, SERUM 108 Normal (applies [facility] mEq/L to non-numeric (Ammir results) [facility] Physician) Carbon dioxide 24 mEq/L Normal (applies [facility] [VFr/PPres] in to non-numeric (Ammir Gas delivery results) [facility] system Physician) Anion gap in 16.6 Above high normal [facility] Body fluid mEq/L (Ammir [facility] Physician) BLOOD UREA 13 mg/dL Normal (applies [facility] NITROGEN to non-numeric (Ammir results) [facility] Physician) CREATININE, 0.90 Above high normal [facility] SERUM mg/dL (Ammir [facility] Physician) BUN/CREATININE 14.44 Normal (applies [facility] RATIO to non-numeric (Ammir results) [facility] Physician) CALCIUM, SERUM 9.4 Normal (applies [facility] mg/dL to non-numeric (Ammir results) [facility] Physician) TOTAL PROTEIN 7.1 g/dL Normal (applies [facility] to non-numeric (Ammir results) [facility] Physician) Microalbumin 4.6 g/dL Normal (applies [facility] [Mass/time] in to non-numeric (Ammir Urine collected results) [place] for unspecified Physician) duration Globulin 2.5 gldl Normal (applies [facility] [Mass/time] in to non-numeric (Ammir 24 hour Urine results) [facility] Physician) A/G RATIO 1.84 Normal (applies [facility] g/dl to non-numeric (Ammir results) [facility] Physician) BILIRUBIN, TOTAL 1.3 Above high normal [facility] N mg/dL (Ammir [place] Physician) ALKALINE 77 U/L Normal (applies [facility] PHOSPHATASE, ALP to non-numeric (Ammir results) [facility] Physician) ALT (SGPT) 5 U/L Below low normal [facility] (Ammir [facility] Physician) AST 18 U/L Normal (applies [facility] to non-numeric (Ammir results) [facility] Physician) EGFR NON AFR 63 Above high normal [facility] SOMALI mL/min/1 (Ammir .73m2 [facility] Physician) EGFR AFR 76 Above high normal [facility] SOMALI mL/min/1 (Ammir .73m2 [facility] Physician) ID Date Data Source [id number] 03/24/2018 12:00:00 AM EST [facility] ([facility]mmir [facility] Physician) Name Value Range Interpretation Description Data Sup porting Code Source(s) Document(s ) Ferritin 34 ng/mL Normal (applies to [facility] (Amm ir [Interpretat non-numeric [place] ion] in results) Physician) Blood ID Date Data Source [id number] 03/24/2018 12:00:00 AM EST [facility] (Ammir [facility] Physician) Name Value Range Interpretation Description Data Sup porting Code Source(s) Document(s ) WBC 7.3 Normal (applies [facility] 10(3)/uL to non-numeric (Ammir results) [facility] Physician) RBC 4.5 Normal (applies [facility] 10(6)/uL to non-numeric (Ammir results) [facility] Physician) Hemoglobin 13.6 g/dL Normal (applies [facility] [Mass/volume] to non-numeric (Ammir in Mixed venous results) [place] blood by Physician) Oximetry Hematocrit 39.4 % Normal (applies [facility] [Pure volume to non-numeric (Ammir fraction] of results) [facility] Blood by Physician) Automated count MCV 88.5 fL Normal (applies [facility] to non-numeric (Ammir results) [facility] Physician) MCH 31 pg Normal (applies [facility] to non-numeric (Ammir results) [facility] Physician) MCHC 35 g/dL Normal (applies [facility] to non-numeric (Ammir results) [facility] Physician) RDWSD 47.9 fL Normal (applies [facility] to non-numeric (Ammir results) [facility] Physician) RDWCV 15.0 % Normal (applies [facility] to non-numeric (Ammir results) [facility] Physician) Platelet Count 288 Normal (applies [facility] 10(3)/uL to non-numeric (Ammir results) [facility] Physician) MPV 10.8 fL Normal (applies [facility] to non-numeric (Ammir results) [facility] Physician) Neutrophil Abs 4.10 Normal (applies [facility] 10(3)/uL to non-numeric (Ammir results) [facility] Physician) Lymphocyte Abs 2.16 Normal (applies [facility] 10(3)/uL to non-numeric (Ammir results) [facility] Physician) Monocyte Abs 0.76 Normal (applies [facility] 10(3)/uL to non-numeric (Ammir results) [facility] Physician) Eosinophil Abs 0.19 Normal (applies [facility] 10(3)/uL to non-numeric (Ammir results) [facility] Physician) Immature 0.04 Above high normal [facility] Granulocyte Abs 10(3)/uL (Ammir [facility] Physician) Neutrophil % 56.40 % Normal (applies [facility] to non-numeric (Ammir results) [facility] Physician) Lymphocyte % 30 % Normal (applies [facility] to non-numeric (Ammir results) [facility] Physician) Monocyte % 10.4 % Normal (applies [facility] to non-numeric (Ammir results) [facility] Physician) Eosinophil % 2.6 % Normal (applies [facility] to non-numeric (Ammir results) [facility] Physician) Basophil % 0.5 % Normal (applies [facility] to non-numeric (Ammir results) [facility] Physician) Immature 0.50 % Normal (applies [facility] Granulocyte % to non-numeric (Ammir results) [facility] Physician) ID Date Data Source [id number] 03/24/2018 12:00:00 AM EST [facility] (Ammir [facility] Physician) Name Value Range Interpretation Description Data Sup porting Code Source(s) Document(s ) IRON, TOTAL 101 ug/dL Normal (applies [facility] to non-numeric (Ammir results) [facility] Physician) Transferrin 334 mg/dL Normal (applies [facility] [Mass/time] in to non-numeric (Ammir 24 hour Urine results) [facility] Physician) TIBC 468.3 Above high normal [facility] ug/dL (Ammir [facility] Physician) UIBC 367.3 Normal (applies [facility] ug/dL to non-numeric (Ammir results) [facility] Physician) %SATURATION 21.6 % Normal (applies [facility] to non-numeric (Ammir results) [facility] Physician) ID Date Data Source [id number] 12/09/2017 12:00:00 AM EDT [facility] (Ammir [facility] Physician) Name Value Range Interpretation Description Data Sup porting Code Source(s) Document(s ) GLUCOSE 69 mg/dL Normal (applies [facility] NONFASTING,SERUM to non-numeric (Ammir results) [facility] Physician) SODIUM, SERUM 140 Normal (applies [facility] mEq/L to non-numeric (Ammir results) [facility] Physician) POTASSIUM, SERUM 4.4 Normal (applies [facility] mEq/L to non-numeric (Ammir results) [facility] Physician) CHLORIDE, SERUM 103 Normal (applies [facility] mEq/L to non-numeric (Ammir results) [facility] Physician) Carbon dioxide 24 mEq/L Normal (applies [facility] [VFr/PPres] in to non-numeric (Ammir Gas delivery results) [facility] system Physician) Anion gap in 17.4 Above high normal [facility] Body fluid mEq/L (Ammir [facility] Physician) BLOOD UREA 12 mg/dL Normal (applies [facility] NITROGEN to non-numeric (Ammir results) [facility] Physician) CREATININE, 0.80 Normal (applies [facility] SERUM mg/dL to non-numeric (Ammir results) [facility] Physician) CALCIUM, SERUM 9.7 Normal (applies [facility] mg/dL to non-numeric (Ammir results) [facility] Physician) TOTAL PROTEIN 6.9 g/dL Normal (applies [facility] to non-numeric (Ammir results) [facility] Physician) Microalbumin 4.2 g/dL Normal (applies [facility] [Mass/time] in to non-numeric (Ammir Urine collected results) [place] for unspecified Physician) duration Globulin 2.7 gldl Normal (applies [facility] [Mass/time] in to non-numeric (Ammir 24 hour Urine results) [facility] Physician) A/G RATIO 1.56 Normal (applies [facility] g/dl to non-numeric (Ammir results) [facility] Physician) BILIRUBIN, TOTAL 1.0 Normal (applies [facility] mg/dL to non-numeric (Ammir results) [facility] Physician) ALKALINE 81 U/L Normal (applies [facility] PHOSPHATASE, ALP to non-numeric (Ammir results) [facility] Physician) ALT (SGPT) 17 U/L Normal (applies [facility] to non-numeric (Ammir results) [facility] Physician) AST 22 U/L Normal (applies [facility] to non-numeric (Ammir results) [facility] Physician) EGFR NON AFR 72 Above high normal [facility] SOMALI mL/min/1 (Ammir .73m2 [facility] Physician) EGFR AFR 87 Above high normal [facility] SOMALI mL/min/1 (Ammir .73m2 [facility] Physician) ID Date Data Source [id number] 12/09/2017 12:00:00 AM EDT [facility] (Ammir [facility] Physician) Name Value Range Interpretation Description Data Sup porting Code Source(s) Document(s ) Ferritin 75.2 Normal (applies to [facility] (Amm ir [Interpretat ng/mL non-numeric [place] ion] in results) Physician) Blood ID Date Data Source [id number] 12/09/2017 12:00:00 AM EDT [facility] (Ammir [facility] Physician) Name Value Range Interpretation Description Data Sup porting Code Source(s) Document(s ) WBC 7.6 Normal (applies to [facility] 10(3)/uL non-numeric (Ammir results) [facility] Physician) RBC 4.4 Normal (applies to [facility] 10(6)/uL non-numeric (Ammir results) [facility] Physician) Hemoglobin 13.2 g/dL Normal (applies to [facility] [Mass/volume] non-numeric (Ammir in Mixed results) [place] venous blood Physician) by Oximetry Hematocrit 40.5 % Normal (applies to [facility] [Pure volume non-numeric (Ammir fraction] of results) [facility] Blood by Physician) Automated count MCV 92.3 fL Normal (applies to [facility] non-numeric (Ammir results) [facility] Physician) MCH 30 pg Normal (applies to [facility] non-numeric (Ammir results) [facility] Physician) MCHC 33 g/dL Normal (applies to [facility] non-numeric (Ammir results) [facility] Physician) RDWSD 42.1 fL Normal (applies to [facility] non-numeric (Ammir results) [facility] Physician) RDWCV 12.6 % Normal (applies to [facility] non-numeric (Ammir results) [facility] Physician) PLT 338 Normal (applies to [facility] 10(3)/uL non-numeric (Ammir results) [facility] Physician) MPV 10.4 fL Normal (applies to [facility] non-numeric (Ammir results) [facility] Physician) NE# 4.04 Normal (applies to [facility] 10(3)/uL non-numeric (Ammir results) [facility] Physician) LY# 2.82 Normal (applies to [facility] 10(3)/uL non-numeric (Ammir results) [facility] Physician) MO# 0.58 Normal (applies to [facility] 10(3)/uL non-numeric (Ammir results) [facility] Physician) EO# 0.08 Normal (applies to [facility] 10(3)/uL non-numeric (Ammir results) [facility] Physician) IG# 0.01 Normal (applies to [facility] 10(3)/uL non-numeric (Ammir results) [facility] Physician) NE% 53.30 % Normal (applies to [facility] non-numeric (Ammir results) [facility] Physician) LY% 37 % Normal (applies to [facility] non-numeric (Ammir results) [facility] Physician) MO% 7.7 % Normal (applies to [facility] non-numeric (Ammir results) [facility] Physician) EO% 1.1 % Normal (applies to [facility] non-numeric (Ammir results) [facility] Physician) BA% 0.5 % Normal (applies to [facility] non-numeric (Ammir results) [facility] Physician) IG% 0.10 % Normal (applies to [facility] non-numeric (Ammir results) [facility] Physician) ID Date Data Source [id number] 12/09/2017 12:00:00 AM EDT [facility] (Ammir [facility] Physician) Name Value Range Interpretation Description Data Sup porting Code Source(s) Document(s ) IRON, TOTAL 71 ug/dL Normal (applies [facility] to non-numeric (Ammir results) [facility] Physician) Transferrin 273 mg/dL Normal (applies [facility] [Mass/time] in to non-numeric (Ammir 24 hour Urine results) [facility] Physician) TIBC 382.8 Normal (applies [facility] ug/dL to non-numeric (Ammir results) [facility] Physician) UIBC 311.8 Normal (applies [facility] ug/dL to non-numeric (Ammir results) [facility] Physician) %SATURATION 18.5 % Normal (applies [facility] to non-numeric (Ammir results) [facility] Physician) ID Date Data Source [id number] 12/09/2017 12:00:00 AM EDT [facility] (Ammir [facility] Physician) Name Value Range Interpretation Description Data Sup porting Code Source(s) Document(s ) GLUCOSE 69 mg/dL Normal (applies [facility] NONFASTING,SERUM to non-numeric (Ammir results) [facility] Physician) SODIUM, SERUM 140 Normal (applies [facility] mEq/L to non-numeric (Ammir results) [facility] Physician) POTASSIUM, SERUM 4.4 Normal (applies [facility] mEq/L to non-numeric (Ammir results) [facility] Physician) CHLORIDE, SERUM 103 Normal (applies [facility] mEq/L to non-numeric (Ammir results) [facility] Physician) Carbon dioxide 24 mEq/L Normal (applies [facility] [VFr/PPres] in to non-numeric (Ammir Gas delivery results) [facility] system Physician) Anion gap in 17.4 Above high normal [facility] Body fluid mEq/L (Ammir [facility] Physician) BLOOD UREA 12 mg/dL Normal (applies [facility] NITROGEN to non-numeric (Ammir results) [facility] Physician) CREATININE, 0.80 Normal (applies [facility] SERUM mg/dL to non-numeric (Ammir results) [facility] Physician) CALCIUM, SERUM 9.7 Normal (applies [facility] mg/dL to non-numeric (Ammir results) [facility] Physician) TOTAL PROTEIN 6.9 g/dL Normal (applies [facility] to non-numeric (Ammir results) [facility] Physician) Microalbumin 4.2 g/dL Normal (applies [facility] [Mass/time] in to non-numeric (Ammir Urine collected results) [place] for unspecified Physician) duration Globulin 2.7 gldl Normal (applies [facility] [Mass/time] in to non-numeric (Ammir 24 hour Urine results) [facility] Physician) A/G RATIO 1.56 Normal (applies [facility] g/dl to non-numeric (Ammir results) [facility] Physician) BILIRUBIN, TOTAL 1.0 Normal (applies [facility] mg/dL to non-numeric (Ammir results) [facility] Physician) ALKALINE 81 U/L Normal (applies [facility] PHOSPHATASE, ALP to non-numeric (Ammir results) [facility] Physician) ALT (SGPT) 17 U/L Normal (applies [facility] to non-numeric (Ammir results) [facility] Physician) AST 22 U/L Normal (applies [facility] to non-numeric (Ammir results) [facility] Physician) EGFR NON AFR 72 Above high normal [facility] SOMALI mL/min/1 (Ammir .73m2 [facility] Physician) EGFR AFR 87 Above high normal [facility] SOMALI mL/min/1 (Ammir .73m2 [facility] Physician) ID Date Data Source [id number] 12/09/2017 12:00:00 AM EDT [facility] (Ammir [facility] Physician) Name Value Range Interpretation Description Data Sup porting Code Source(s) Document(s ) Ferritin 75.2 Normal (applies to [facility] (Amm ir [Interpretat ng/mL non-numeric [place] ion] in results) Physician) Blood ID Date Data Source [id number] 12/09/2017 12:00:00 AM EDT [facility] (Ammir [facility] Physician) Name Value Range Interpretation Description Data Sup porting Code Source(s) Document(s ) WBC 7.6 Normal (applies to [facility] 10(3)/uL non-numeric (Ammir results) [facility] Physician) RBC 4.4 Normal (applies to [facility] 10(6)/uL non-numeric (Ammir results) [facility] Physician) Hemoglobin 13.2 g/dL Normal (applies to [facility] [Mass/volume] non-numeric (Ammir in Mixed results) [place] venous blood Physician) by Oximetry Hematocrit 40.5 % Normal (applies to [facility] [Pure volume non-numeric (Ammir fraction] of results) [place] Blood by Physician) Automated count MCV 92.3 fL Normal (applies to [facility] non-numeric (Ammir results) [facility] Physician) MCH 30 pg Normal (applies to [facility] non-numeric (Ammir results) [facility] Physician) MCHC 33 g/dL Normal (applies to [facility] non-numeric (Ammir results) [facility] Physician) RDWSD 42.1 fL Normal (applies to [facility] non-numeric (Ammir results) [facility] Physician) RDWCV 12.6 % Normal (applies to [facility] non-numeric (Ammir results) [facility] Physician) PLT 338 Normal (applies to [facility] 10(3)/uL non-numeric (Ammir results) [facility] Physician) MPV 10.4 fL Normal (applies to [facility] non-numeric (Ammir results) [facility] Physician) NE# 4.04 Normal (applies to [facility] 10(3)/uL non-numeric (Ammir results) [facility] Physician) LY# 2.82 Normal (applies to [facility] 10(3)/uL non-numeric (Ammir results) [facility] Physician) MO# 0.58 Normal (applies to [facility] 10(3)/uL non-numeric (Ammir results) [facility] Physician) EO# 0.08 Normal (applies to [facility] 10(3)/uL non-numeric (Ammir results) [facility] Physician) IG# 0.01 Normal (applies to [facility] 10(3)/uL non-numeric (Ammir results) [facility] Physician) NE% 53.30 % Normal (applies to [facility] non-numeric (Ammir results) [facility] Physician) LY% 37 % Normal (applies to [facility] non-numeric (Ammir results) [facility] Physician) MO% 7.7 % Normal (applies to [facility] non-numeric (Ammir results) [facility] Physician) EO% 1.1 % Normal (applies to [facility] non-numeric (Ammir results) [facility] Physician) BA% 0.5 % Normal (applies to [facility] non-numeric (Ammir results) [facility] Physician) IG% 0.10 % Normal (applies to [facility] non-numeric (Ammir results) [facility] Physician) ID Date Data Source [id number] 12/09/2017 12:00:00 AM EDT [facility] (Ammir [facility] Physician) Name Value Range Interpretation Description Data Sup porting Code Source(s) Document(s ) IRON, TOTAL 71 ug/dL Normal (applies [facility] to non-numeric (Ammir results) [facility] Physician) Transferrin 273 mg/dL Normal (applies [facility] [Mass/time] in to non-numeric (Ammir 24 hour Urine results) [facility] Physician) TIBC 382.8 Normal (applies [facility] ug/dL to non-numeric (Ammir results) [facility] Physician) UIBC 311.8 Normal (applies [facility] ug/dL to non-numeric (Ammir results) [facility] Physician) %SATURATION 18.5 % Normal (applies [facility] to non-numeric (Ammir results) [facility] Physician) ID Date Data Source [id number] 12/09/2017 12:00:00 AM EDT [facility] (Ammir [facility] Physician) Name Value Range Interpretation Description Data Sup porting Code Source(s) Document(s ) GLUCOSE 69 mg/dL Normal (applies [facility] NONFASTING,SERUM to non-numeric (Ammir results) [facility] Physician) SODIUM, SERUM 140 Normal (applies [facility] mEq/L to non-numeric (Ammir results) [facility] Physician) POTASSIUM, SERUM 4.4 Normal (applies [facility] mEq/L to non-numeric (Ammir results) [facility] Physician) CHLORIDE, SERUM 103 Normal (applies [facility] mEq/L to non-numeric (Ammir results) [facility] Physician) Carbon dioxide 24 mEq/L Normal (applies [facility] [VFr/PPres] in to non-numeric (Ammir Gas delivery results) [facility] system Physician) Anion gap in 17.4 Above high normal [facility] Body fluid mEq/L (Ammir [facility] Physician) BLOOD UREA 12 mg/dL Normal (applies [facility] NITROGEN to non-numeric (Ammir results) [facility] Physician) CREATININE, 0.80 Normal (applies [facility] SERUM mg/dL to non-numeric (Ammir results) [facility] Physician) CALCIUM, SERUM 9.7 Normal (applies [facility] mg/dL to non-numeric (Ammir results) [facility] Physician) TOTAL PROTEIN 6.9 g/dL Normal (applies [facility] to non-numeric (Ammir results) [facility] Physician) Microalbumin 4.2 g/dL Normal (applies [facility] [Mass/time] in to non-numeric (Ammir Urine collected results) [place] for unspecified Physician) duration Globulin 2.7 gldl Normal (applies [facility] [Mass/time] in to non-numeric (Ammir 24 hour Urine results) [facility] Physician) A/G RATIO 1.56 Normal (applies [facility] g/dl to non-numeric (Ammir results) [facility] Physician) BILIRUBIN, TOTAL 1.0 Normal (applies [facility] mg/dL to non-numeric (Ammir results) [facility] Physician) ALKALINE 81 U/L Normal (applies [facility] PHOSPHATASE, ALP to non-numeric (Ammir results) [place] Physician) ALT (SGPT) 17 U/L Normal (applies [facility] to non-numeric (Ammir results) [facility] Physician) AST 22 U/L Normal (applies [facility] to non-numeric (Ammir results) [facility] Physician) EGFR NON AFR 72 Above high normal [facility] SOMALI mL/min/1 (Ammir .73m2 [facility] Physician) EGFR AFR 87 Above high normal [facility] SOMALI mL/min/1 (Ammir .73m2 [facility] Physician) ID Date Data Source [id number] 12/09/2017 12:00:00 AM EDT [facility] (Ammir [facility] Physician) Name Value Range Interpretation Description Data Sup porting Code Source(s) Document(s ) Ferritin 75.2 Normal (applies to [facility] (Amm ir [Interpretat ng/mL non-numeric [place] ion] in results) Physician) Blood ID Date Data Source [id number] 12/09/2017 12:00:00 AM EDT [facility] (Ammir [facility] Physician) Name Value Range Interpretation Description Data Sup porting Code Source(s) Document(s ) WBC 7.6 Normal (applies to [facility] 10(3)/uL non-numeric (Ammir results) [facility]) RBC 4.4 Normal (applies to [facility] 10(6)/uL non-numeric (Ammir results) [facility] Phys[facility]) Hemoglobin 13.2 g/dL Normal (applies to [facility] [Mass/volume] non-numeric (Ammir in Mixed results) [facility] venous blood Physician) by Oximetry Hematocrit 40.5 % Normal (applies to [facility] [Pure volume non-numeric (Ammir fraction] of results) [facility] Blood by Physician) Automated count MCV 92.3 fL Normal (applies to [facility] non-numeric (Ammir results) [facility] Physician) MCH 30 pg Normal (applies to [facility] non-numeric (Ammir results) [facility] Physician) MCHC 33 g/dL Normal (applies to [facility] non-numeric (Ammir results) [facility] Physician) RDWSD 42.1 fL Normal (applies to [facility] non-numeric (Ammir results) [facility] Phys[facility]) RDWCV 12.6 % Normal (applies to [facility] non-numeric (Ammir results) [facility] Physician) PLT 338 Normal (applies to [facility] 10(3)/uL non-numeric (Ammir results) [facility] Physician) MPV 10.4 fL Normal (applies to [facility] non-numeric (Ammir results) [facility] Physician) NE# 4.04 Normal (applies to [facility] 10(3)/uL non-numeric (Ammir results) [facility] Phys[facility]) LY# 2.82 Normal (applies to [facility] 10(3)/uL non-numeric (Ammir results) [facility] Phys[facility]) MO# 0.58 Normal (applies to [facility] 10(3)/uL non-numeric (Ammir results) [facility] Phys[facility]) EO# 0.08 Normal (applies to [facility] 10(3)/uL non-numeric (Ammir results) [facility] Physician) IG# 0.01 Normal (applies to [facility] 10(3)/uL non-numeric (Ammir results) [facility] Physician) NE% 53.30 % Normal (applies to [facility] non-numeric (Ammir results) [facility] Physician) LY% 37 % Normal (applies to [facility] non-numeric (Ammir results) [facility] Physician) MO% 7.7 % Normal (applies to [facility] non-numeric (Ammir results) [facility] Physician) EO% 1.1 % Normal (applies to [facility] non-numeric (Ammir results) [facility] Physician) BA% 0.5 % Normal (applies to [facility] non-numeric (Ammir results) [facility] Physician) IG% 0.10 % Normal (applies to [facility] non-numeric (Ammir results) [facility] Physician) ID Date Data Source [id number] 12/09/2017 12:00:00 AM EDT [facility] ([facility]mmir [facility] Phys[facility]) Name Value Range Interpretation Description Data Sup porting Code Source(s) Document(s ) IRON, TOTAL 71 ug/dL Normal (applies [facility] to non-numeric (Ammir results) [facility] Phys[facility]) Transferrin 273 mg/dL Normal (applies [facility] [Mass/time] in to non-numeric (Ammir 24 hour Urine results) [facility] Physician) TIBC 382.8 Normal (applies [facility] ug/dL to non-numeric (Ammir results) [facility] Physician) UIBC 311.8 Normal (applies [facility] ug/dL to non-numeric (Ammir results) [facility] Physician) %SATURATION 18.5 % Normal (applies [facility] to non-numeric (Ammir results) [facility] Phys[facility]) ID Date Data Source [id number] 12/09/2017 12:00:00 AM EDT [facility] ([facility]mmir [facility]) Name Value Range Interpretation Description Data Sup porting Code Source(s) Document(s ) GLUCOSE 69 mg/dL Normal (applies [facility] NONFASTING,SERUM to non-numeric (Ammir results) [facility] Physician) SODIUM, SERUM 140 Normal (applies [facility] mEq/L to non-numeric (Ammir results) [facility] Physician) POTASSIUM, SERUM 4.4 Normal (applies [facility] mEq/L to non-numeric (Ammir results) [facility] Physician) CHLORIDE, SERUM 103 Normal (applies [facility] mEq/L to non-numeric (Ammir results) [facility] Physician) Carbon dioxide 24 mEq/L Normal (applies [facility] [VFr/PPres] in to non-numeric (Ammir Gas delivery results) [facility] system Physician) Anion gap in 17.4 Above high normal [facility] Body fluid mEq/L (Ammir [facility] Phys[facility]) BLOOD UREA 12 mg/dL Normal (applies [facility] NITROGEN to non-numeric (Ammir results) [facility] Physician) CREATININE, 0.80 Normal (applies [facility] SERUM mg/dL to non-numeric (Ammir results) [facility] Physician) CALCIUM, SERUM 9.7 Normal (applies [facility] mg/dL to non-numeric (Ammir results) [facility] Physician) TOTAL PROTEIN 6.9 g/dL Normal (applies [facility] to non-numeric (Ammir results) [facility] Physician) Microalbumin 4.2 g/dL Normal (applies [facility] [Mass/time] in to non-numeric (Ammir Urine collected results) [facility] for unspecified Physician) duration Globulin 2.7 gldl Normal (applies [facility] [Mass/time] in to non-numeric (Ammir 24 hour Urine results) [facility] Physician) A/G RATIO 1.56 Normal (applies [facility] g/dl to non-numeric (Ammir results) [facility] Physician) BILIRUBIN, TOTAL 1.0 Normal (applies [facility] mg/dL to non-numeric (Ammir results) [facility] Physician) ALKALINE 81 U/L Normal (applies [facility] PHOSPHATASE, ALP to non-numeric (Ammir results) [facility] Physician) ALT (SGPT) 17 U/L Normal (applies [facility] to non-numeric (Ammir results) [facility] Physician) AST 22 U/L Normal (applies [facility] to non-numeric (Ammir results) [facility] Physician) EGFR NON AFR 72 Above high normal [facility] SOMALI mL/min/1 (Ammir .73m2 [facility] Phys[facility]) EGFR AFR 87 Above high normal [facility] SOMALI mL/min/1 (Ammir .73m2 [facility] Phys[facility]) ID Date Data Source [id number] 12/09/2017 12:00:00 AM EDT [facility] ([facility]mmir [facility]) Name Value Range Interpretation Description Data Sup porting Code Source(s) Document(s ) Ferritin 75.2 Normal (applies to [facility] (Amm ir [Interpretat ng/mL non-numeric [facility] ion] in results) Physician) Blood ID Date Data Source [id number] 12/09/2017 12:00:00 AM EDT [facility] ([facility]mmir [facility]) Name Value Range Interpretation Description Data Sup porting Code Source(s) Document(s ) WBC 7.6 Normal (applies to [facility] 10(3)/uL non-numeric (Ammir results) [facility]) RBC 4.4 Normal (applies to [facility] 10(6)/uL non-numeric (Ammir results) [facility] Phys[facility]) Hemoglobin 13.2 g/dL Normal (applies to [facility] [Mass/volume] non-numeric (Ammir in Mixed results) [facility] venous blood Physician) by Oximetry Hematocrit 40.5 % Normal (applies to [facility] [Pure volume non-numeric (Ammir fraction] of results) [facility] Blood by Physician) Automated count MCV 92.3 fL Normal (applies to [facility] non-numeric (Ammir results) [facility] Physician) MCH 30 pg Normal (applies to [facility] non-numeric (Ammir results) [facility] Physician) MCHC 33 g/dL Normal (applies to [facility] non-numeric (Ammir results) [facility] Physician) RDWSD 42.1 fL Normal (applies to [facility] non-numeric (Ammir results) [facility] Physician) RDWCV 12.6 % Normal (applies to [facility] non-numeric (Ammir results) [facility] Physician) PLT 338 Normal (applies to [facility] 10(3)/uL non-numeric (Ammir results) [facility] Physician) MPV 10.4 fL Normal (applies to [facility] non-numeric (Ammir results) [facility] Physician) NE# 4.04 Normal (applies to [facility] 10(3)/uL non-numeric (Ammir results) [facility] Phys[facility]) LY# 2.82 Normal (applies to [facility] 10(3)/uL non-numeric (Ammir results) [facility] Physician) MO# 0.58 Normal (applies to [facility] 10(3)/uL non-numeric (Ammir results) [facility] Physician) EO# 0.08 Normal (applies to [facility] 10(3)/uL non-numeric (Ammir results) [facility] Physician) IG# 0.01 Normal (applies to [facility] 10(3)/uL non-numeric (Ammir results) [facility] Physician) NE% 53.30 % Normal (applies to [facility] non-numeric (Ammir results) [facility] Physician) LY% 37 % Normal (applies to [facility] non-numeric (Ammir results) [facility] Physician) MO% 7.7 % Normal (applies to [facility] non-numeric (Ammir results) [facility] Physician) EO% 1.1 % Normal (applies to [facility] non-numeric (Ammir results) [facility] Physician) BA% 0.5 % Normal (applies to [facility] non-numeric (Ammir results) [facility] Physician) IG% 0.10 % Normal (applies to [facility] non-numeric (Ammir results) [facility] Physician) ID Date Data Source [id number] 12/09/2017 12:00:00 AM EDT [facility] ([facility]mmir [facility]) Name Value Range Interpretation Description Data Sup porting Code Source(s) Document(s ) IRON, TOTAL 71 ug/dL Normal (applies [facility] to non-numeric (Ammir results) [facility] Phys[facility]) Transferrin 273 mg/dL Normal (applies [facility] [Mass/time] in to non-numeric (Ammir 24 hour Urine results) [facility] Physician) TIBC 382.8 Normal (applies [facility] ug/dL to non-numeric (Ammir results) [facility] Physician) UIBC 311.8 Normal (applies [facility] ug/dL to non-numeric (Ammir results) [facility] Physician) %SATURATION 18.5 % Normal (applies [facility] to non-numeric (Ammir results) [facility] Physician) ID Date Data Source [id number] 10/05/2017 12:00:00 AM EDT [facility] ([facility]mmir [facility]) Name Value Range Interpretation Description Data Sup porting Code Source(s) Document(s ) GLUCOSE 83 mg/dL Normal (applies [facility] NONFASTING,SERUM to non-numeric (Ammir results) [facility] Physician) SODIUM, SERUM 141 Normal (applies [facility] mEq/L to non-numeric (Ammir results) [facility] Physician) POTASSIUM, SERUM 4.9 Normal (applies [facility] mEq/L to non-numeric (Ammir results) [facility] Physician) CHLORIDE, SERUM 105 Normal (applies [facility] mEq/L to non-numeric (Ammir results) [facility] Physician) Carbon dioxide 28 mEq/L Normal (applies [facility] [VFr/PPres] in to non-numeric (Ammir Gas delivery results) [facility] system Physician) Anion gap in 12.9 Normal (applies [facility] Body fluid mEq/L to non-numeric (Ammir results) [facility] Physician) BLOOD UREA 16 mg/dL Normal (applies [facility] NITROGEN to non-numeric (Ammir results) [facility] Physician) CREATININE, 0.80 Normal (applies [facility] SERUM mg/dL to non-numeric (Ammir results) [facility] Physician) CALCIUM, SERUM 10.1 Normal (applies [facility] mg/dL to non-numeric (Ammir results) [facility] Physician) TOTAL PROTEIN 7.6 g/dL Normal (applies [facility] to non-numeric (Ammir results) [facility] Physician) Microalbumin 4.7 g/dL Normal (applies [facility] [Mass/time] in to non-numeric (Ammir Urine collected results) [facility] for unspecified Physician) duration Globulin 2.9 gldl Normal (applies [facility] [Mass/time] in to non-numeric (Ammir 24 hour Urine results) [facility] Physician) A/G RATIO 1.62 Normal (applies [facility] g/dl to non-numeric (Ammir results) [facility] Physician) BILIRUBIN, TOTAL 0.9 Normal (applies [facility] mg/dL to non-numeric (Ammir results) [facility] Physician) ALKALINE 81 U/L Normal (applies [facility] PHOSPHATASE, ALP to non-numeric (Ammir results) [facility] Physician) ALT (SGPT) 15 U/L Normal (applies [facility] to non-numeric (Ammir results) [facility] Physician) AST 30 U/L Normal (applies [facility] to non-numeric (Ammir results) [facility] Physician) EGFR NON AFR 72 Above high normal [facility] SOMALI mL/min/1 (Ammir .73m2 [facility] Physician) EGFR AFR 87 Above high normal [facility] SOMALI mL/min/1 (Ammir .73m2 [facility] Physician) ID Date Data Source [id number] 10/05/2017 12:00:00 AM EDT [facility] (Ammir [facility] Phys[facility]) Name Value Range Interpretation Description Data Sup porting Code Source(s) Document(s ) WBC 7.8 Normal (applies to [facility] 10(3)/uL non-numeric (Ammir results) [facility] Physician) RBC 5.1 Above high normal [facility] 10(6)/uL (Ammir [facility] Phys[facility]) Hemoglobin 15.7 g/dL Above high normal [facility] [Mass/volume] (Ammir in Mixed [facility] venous blood Physician) by Oximetry Hematocrit 46.3 % Above high normal [facility] [Pure volume (Ammir fraction] of [facility] Blood by Physician) Automated count MCV 91.7 fL Normal (applies to [facility] non-numeric (Ammir results) [facility] Physician) MCH 31 pg Normal (applies to [facility] non-numeric (Ammir results) [facility] Physician) MCHC 34 g/dL Normal (applies to [facility] non-numeric (Ammir results) [facility] Physician) RDWSD 44.9 fL Normal (applies to [facility] non-numeric (Ammir results) [facility] Physician) RDWCV 13.3 % Normal (applies to [facility] non-numeric (Ammir results) [facility] Physician) PLT 264 Normal (applies to [facility] 10(3)/uL non-numeric (Ammir results) [facility] Physician) MPV 10.9 fL Normal (applies to [facility] non-numeric (Ammir results) [facility] Physician) NE# 4.05 Normal (applies to [facility] 10(3)/uL non-numeric (Ammir results) [facility] Physician) LY# 2.94 Normal (applies to [facility] 10(3)/uL non-numeric (Ammir results) [facility] Physician) MO# 0.70 Normal (applies to [facility] 10(3)/uL non-numeric (Ammir results) [facility] Physician) EO# 0.06 Normal (applies to [facility] 10(3)/uL non-numeric (Ammir results) [facility] Physician) IG# 0.02 Normal (applies to [facility] 10(3)/uL non-numeric (Ammir results) [facility] Physician) NE% 51.80 % Normal (applies to [facility] non-numeric (Ammir results) [facility] Physician) LY% 38 % Normal (applies to [facility] non-numeric (Ammir results) [facility] Physician) MO% 9.0 % Normal (applies to [facility] non-numeric (Ammir results) [facility] Physician) EO% 0.8 % Normal (applies to [facility] non-numeric (Ammir results) [facility] Physician) BA% 0.4 % Normal (applies to [facility] non-numeric (Ammir results) [facility] Physician) IG% 0.30 % Normal (applies to [facility] non-numeric (Ammir results) [facility] Physician) ID Date Data Source [id number] 10/05/2017 12:00:00 AM EDT [facility] (Ammir [facility]) Name Value Range Interpretation Code Description Data Ning rce(s) Supporting Document(s ) APTT 34.70 sec Normal (applies to [facility] (Amm ir non-numeric results) [facility] Physician) ID Date Data Source [id number] 10/05/2017 12:00:00 AM EDT [facility] ([facility]mmir [facility] Phys[facility]) Name Value Range Interpretation Description Data Sup porting Code Source(s) Document(s ) PROTHROMBIN 19.5 sec Above high normal [facility] TIME, PT (Ammir [facility] Physician) INR 1.56 Above high normal [facility] (Ammir [facility] Physician) ID Date Data Source [id number] 10/05/2017 12:00:00 AM EDT [facility] (Ammir [facility] Phys[facility]) Name Value Range Interpretation Description Data Sup porting Code Source(s) Document(s ) GLUCOSE 83 mg/dL Normal (applies [facility] NONFASTING,SERUM to non-numeric (Ammir results) [facility] Physician) SODIUM, SERUM 141 Normal (applies [facility] mEq/L to non-numeric (Ammir results) [facility] Physician) POTASSIUM, SERUM 4.9 Normal (applies [facility] mEq/L to non-numeric (Ammir results) [facility] Physician) CHLORIDE, SERUM 105 Normal (applies [facility] mEq/L to non-numeric (Ammir results) [facility] Physician) Carbon dioxide 28 mEq/L Normal (applies [facility] [VFr/PPres] in to non-numeric (Ammir Gas delivery results) [facility] system Physician) Anion gap in 12.9 Normal (applies [facility] Body fluid mEq/L to non-numeric (Ammir results) [facility] Physician) BLOOD UREA 16 mg/dL Normal (applies [facility] NITROGEN to non-numeric (Ammir results) [facility] Physician) CREATININE, 0.80 Normal (applies [facility] SERUM mg/dL to non-numeric (Ammir results) [facility] Physician) CALCIUM, SERUM 10.1 Normal (applies [facility] mg/dL to non-numeric (Ammir results) [facility] Physician) TOTAL PROTEIN 7.6 g/dL Normal (applies [facility] to non-numeric (Ammir results) [facility] Physician) Microalbumin 4.7 g/dL Normal (applies [facility] [Mass/time] in to non-numeric (Ammir Urine collected results) [facility] for unspecified Physician) duration Globulin 2.9 gldl Normal (applies [facility] [Mass/time] in to non-numeric (Ammir 24 hour Urine results) [facility] Physician) A/G RATIO 1.62 Normal (applies [facility] g/dl to non-numeric (Ammir results) [facility] Physician) BILIRUBIN, TOTAL 0.9 Normal (applies [facility] mg/dL to non-numeric (Ammir results) [facility] Physician) ALKALINE 81 U/L Normal (applies [facility] PHOSPHATASE, ALP to non-numeric (Ammir results) [facility] Physician) ALT (SGPT) 15 U/L Normal (applies [facility] to non-numeric (Ammir results) [facility] Physician) AST 30 U/L Normal (applies [facility] to non-numeric (Ammir results) [facility] Physician) EGFR NON AFR 72 Above high normal [facility] SOMALI mL/min/1 (Ammir .73m2 [facility] Physician) EGFR AFR 87 Above high normal [facility] SOMALI mL/min/1 (Ammir .73m2 [facility] Physician) ID Date Data Source [id number] 10/05/2017 12:00:00 AM EDT [facility] (Ammir [facility] Physician) Name Value Range Interpretation Description Data Sup porting Code Source(s) Document(s ) WBC 7.8 Normal (applies to [facility] 10(3)/uL non-numeric (Ammir results) [facility] Physician) RBC 5.1 Above high normal [facility] 10(6)/uL (Ammir [facility] Physician) Hemoglobin 15.7 g/dL Above high normal [facility] [Mass/volume] (Ammir in Mixed [place] venous blood Physician) by Oximetry Hematocrit 46.3 % Above high normal [facility] [Pure volume (Ammir fraction] of [facility] Blood by Physician) Automated count MCV 91.7 fL Normal (applies to [facility] non-numeric (Ammir results) [facility] Physician) MCH 31 pg Normal (applies to [facility] non-numeric (Ammir results) [facility] Physician) MCHC 34 g/dL Normal (applies to [facility] non-numeric (Ammir results) [facility] Physician) RDWSD 44.9 fL Normal (applies to [facility] non-numeric (Ammir results) [facility] Physician) RDWCV 13.3 % Normal (applies to [facility] non-numeric (Ammir results) [facility] Physician) PLT 264 Normal (applies to [facility] 10(3)/uL non-numeric (Ammir results) [facility] Physician) MPV 10.9 fL Normal (applies to [facility] non-numeric (Ammir results) [facility] Physician) NE# 4.05 Normal (applies to [facility] 10(3)/uL non-numeric (Ammir results) [facility] Physician) LY# 2.94 Normal (applies to [facility] 10(3)/uL non-numeric (Ammir results) [facility] Physician) MO# 0.70 Normal (applies to [facility] 10(3)/uL non-numeric (Ammir results) [facility] Physician) EO# 0.06 Normal (applies to [facility] 10(3)/uL non-numeric (Ammir results) [facility] Physician) IG# 0.02 Normal (applies to [facility] 10(3)/uL non-numeric (Ammir results) [facility] Physician) NE% 51.80 % Normal (applies to [facility] non-numeric (Ammir results) [facility] Physician) LY% 38 % Normal (applies to [facility] non-numeric (Ammir results) [facility] Physician) MO% 9.0 % Normal (applies to [facility] non-numeric (Ammir results) [facility] Physician) EO% 0.8 % Normal (applies to [facility] non-numeric (Ammir results) [facility] Physician) BA% 0.4 % Normal (applies to [facility] non-numeric (Ammir results) [facility] Physician) IG% 0.30 % Normal (applies to [facility] non-numeric (Ammir results) [facility] Physician) ID Date Data Source [id number] 10/05/2017 12:00:00 AM EDT [facility] (Ammir [facility] Physician) Name Value Range Interpretation Code Description Data Ning rce(s) Supporting Document(s ) APTT 34.70 sec Normal (applies to [facility] (Amm ir non-numeric results) [facility] Physician) ID Date Data Source [id number] 10/05/2017 12:00:00 AM EDT [facility] (Ammir [facility] Physician) Name Value Range Interpretation Description Data Sup porting Code Source(s) Document(s ) PROTHROMBIN 19.5 sec Above high normal [facility] TIME, PT (Ammir [facility] Physician) INR 1.56 Above high normal [facility] (Ammir [facility] Physician) ID Date Data Source [id number] 10/05/2017 12:00:00 AM EDT [facility] (Ammir [facility] Physician) Name Value Range Interpretation Description Data Sup porting Code Source(s) Document(s ) GLUCOSE 83 mg/dL Normal (applies [facility] NONFASTING,SERUM to non-numeric (Ammir results) [facility] Physician) SODIUM, SERUM 141 Normal (applies [facility] mEq/L to non-numeric (Ammir results) [facility] Physician) POTASSIUM, SERUM 4.9 Normal (applies [facility] mEq/L to non-numeric (Ammir results) [facility] Physician) CHLORIDE, SERUM 105 Normal (applies [facility] mEq/L to non-numeric (Ammir results) [facility] Physician) Carbon dioxide 28 mEq/L Normal (applies [facility] [VFr/PPres] in to non-numeric (Ammir Gas delivery results) [facility] system Physician) Anion gap in 12.9 Normal (applies [facility] Body fluid mEq/L to non-numeric (Ammir results) [facility] Physician) BLOOD UREA 16 mg/dL Normal (applies [facility] NITROGEN to non-numeric (Ammir results) [facility] Physician) CREATININE, 0.80 Normal (applies [facility] SERUM mg/dL to non-numeric (Ammir results) [facility] Physician) CALCIUM, SERUM 10.1 Normal (applies [facility] mg/dL to non-numeric (Ammir results) [facility] Physician) TOTAL PROTEIN 7.6 g/dL Normal (applies [facility] to non-numeric (Ammir results) [facility] Physician) Microalbumin 4.7 g/dL Normal (applies [facility] [Mass/time] in to non-numeric (Ammir Urine collected results) [facility] for unspecified Physician) duration Globulin 2.9 gldl Normal (applies [facility] [Mass/time] in to non-numeric (Ammir 24 hour Urine results) [facility] Physician) A/G RATIO 1.62 Normal (applies [facility] g/dl to non-numeric (Ammir results) [facility] Physician) BILIRUBIN, TOTAL 0.9 Normal (applies [facility] mg/dL to non-numeric (Ammir results) [facility] Physician) ALKALINE 81 U/L Normal (applies [facility] PHOSPHATASE, ALP to non-numeric (Ammir results) [facility] Physician) ALT (SGPT) 15 U/L Normal (applies [facility] to non-numeric (Ammir results) [facility] Physician) AST 30 U/L Normal (applies [facility] to non-numeric (Ammir results) [facility] Physician) EGFR NON AFR 72 Above high normal [facility] SOMALI mL/min/1 (Ammir .73m2 [facility] Physician) EGFR AFR 87 Above high normal [facility] SOMALI mL/min/1 (Ammir .73m2 [facility] Physician) ID Date Data Source [id number] 10/05/2017 12:00:00 AM EDT [facility] (Ammir [facility] Physician) Name Value Range Interpretation Description Data Sup porting Code Source(s) Document(s ) WBC 7.8 Normal (applies to [facility] 10(3)/uL non-numeric (Ammir results) [facility] Physician) RBC 5.1 Above high normal [facility] 10(6)/uL (Ammir [facility] Physician) Hemoglobin 15.7 g/dL Above high normal [facility] [Mass/volume] (Ammir in Mixed [place] venous blood Physician) by Oximetry Hematocrit 46.3 % Above high normal [facility] [Pure volume (Ammir fraction] of [place] Blood by Physician) Automated count MCV 91.7 fL Normal (applies to [facility] non-numeric (Ammir results) [facility] Physician) MCH 31 pg Normal (applies to [facility] non-numeric (Ammir results) [facility] Physician) MCHC 34 g/dL Normal (applies to [facility] non-numeric (Ammir results) [facility] Physician) RDWSD 44.9 fL Normal (applies to [facility] non-numeric (Ammir results) [facility] Physician) RDWCV 13.3 % Normal (applies to [facility] non-numeric (Ammir results) [facility] Physician) PLT 264 Normal (applies to [facility] 10(3)/uL non-numeric (Ammir results) [facility] Physician) MPV 10.9 fL Normal (applies to [facility] non-numeric (Ammir results) [facility] Physician) NE# 4.05 Normal (applies to [facility] 10(3)/uL non-numeric (Ammir results) [facility] Physician) LY# 2.94 Normal (applies to [facility] 10(3)/uL non-numeric (Ammir results) [facility] Physician) MO# 0.70 Normal (applies to [facility] 10(3)/uL non-numeric (Ammir results) [facility] Physician) EO# 0.06 Normal (applies to [facility] 10(3)/uL non-numeric (Ammir results) [facility] Physician) IG# 0.02 Normal (applies to [facility] 10(3)/uL non-numeric (Ammir results) [facility] Physician) NE% 51.80 % Normal (applies to [facility] non-numeric (Ammir results) [facility] Physician) LY% 38 % Normal (applies to [facility] non-numeric (Ammir results) [facility] Physician) MO% 9.0 % Normal (applies to [facility] non-numeric (Ammir results) [facility] Physician) EO% 0.8 % Normal (applies to [facility] non-numeric (Ammir results) [facility] Physician) BA% 0.4 % Normal (applies to [facility] non-numeric (Ammir results) [facility] Physician) IG% 0.30 % Normal (applies to [facility] non-numeric (Ammir results) [facility] Physician) ID Date Data Source [id number] 10/05/2017 12:00:00 AM EDT [facility] (Ammir [facility] Physician) Name Value Range Interpretation Code Description Data Ning rce(s) Supporting Document(s ) APTT 34.70 sec Normal (applies to [facility] (Amm ir non-numeric results) [facility] Physician) ID Date Data Source [id number] 10/05/2017 12:00:00 AM EDT [facility] (Ammir [facility] Physician) Name Value Range Interpretation Description Data Sup porting Code Source(s) Document(s ) PROTHROMBIN 19.5 sec Above high normal [facility] TIME, PT (Ammir [facility] Physician) INR 1.56 Above high normal [facility] (Ammir [facility] Physician) ID Date Data Source [id number] 10/05/2017 12:00:00 AM EDT [facility] (Ammir [facility] Physician) Name Value Range Interpretation Description Data Sup porting Code Source(s) Document(s ) GLUCOSE 83 mg/dL Normal (applies [facility] NONFASTING,SERUM to non-numeric (Ammir results) [facility] Physician) SODIUM, SERUM 141 Normal (applies [facility] mEq/L to non-numeric (Ammir results) [facility] Physician) POTASSIUM, SERUM 4.9 Normal (applies [facility] mEq/L to non-numeric (Ammir results) [facility] Physician) CHLORIDE, SERUM 105 Normal (applies [facility] mEq/L to non-numeric (Ammir results) [facility] Physician) Carbon dioxide 28 mEq/L Normal (applies [facility] [VFr/PPres] in to non-numeric (Ammir Gas delivery results) [facility] system Physician) Anion gap in 12.9 Normal (applies [facility] Body fluid mEq/L to non-numeric (Ammir results) [facility] Physician) BLOOD UREA 16 mg/dL Normal (applies [facility] NITROGEN to non-numeric (Ammir results) [facility] Physician) CREATININE, 0.80 Normal (applies [facility] SERUM mg/dL to non-numeric (Ammir results) [facility] Physician) CALCIUM, SERUM 10.1 Normal (applies [facility] mg/dL to non-numeric (Ammir results) [facility] Physician) TOTAL PROTEIN 7.6 g/dL Normal (applies [facility] to non-numeric (Ammir results) [facility] Physician) Microalbumin 4.7 g/dL Normal (applies [facility] [Mass/time] in to non-numeric (Ammir Urine collected results) [facility] for unspecified Physician) duration Globulin 2.9 gldl Normal (applies [facility] [Mass/time] in to non-numeric (Ammir 24 hour Urine results) [facility] Physician) A/G RATIO 1.62 Normal (applies [facility] g/dl to non-numeric (Ammir results) [facility] Physician) BILIRUBIN, TOTAL 0.9 Normal (applies [facility] mg/dL to non-numeric (Ammir results) [facility]) ALKALINE 81 U/L Normal (applies [facility] PHOSPHATASE, ALP to non-numeric (Ammir results) [facility]) ALT (SGPT) 15 U/L Normal (applies [facility] to non-numeric (Ammir results) [facility]) AST 30 U/L Normal (applies [facility] to non-numeric (Ammir results) [facility]) EGFR NON AFR 72 Above high normal [facility] SOMALI mL/min/1 (Ammir .73m2 [facility]) EGFR AFR 87 Above high normal [facility] SOMALI mL/min/1 (Ammir .73m2 [facility]) ID Date Data Source [id number] 10/05/2017 12:00:00 AM EDT [facility] ([facility]mm[facility]) Name Value Range Interpretation Description Data Sup porting Code Source(s) Document(s ) WBC 7.8 Normal (applies to [facility] 10(3)/uL non-numeric (Ammir results) [facility]) RBC 5.1 Above high normal [facility] 10(6)/uL (Ammir [facility]) Hemoglobin 15.7 g/dL Above high normal [facility] [Mass/volume] (Ammir in Mixed [facility] venous blood Physician) by Oximetry Hematocrit 46.3 % Above high normal [facility] [Pure volume (Ammir fraction] of [facility] Blood by Physician) Automated count MCV 91.7 fL Normal (applies to [facility] non-numeric (Ammir results) [facility]) MCH 31 pg Normal (applies to [facility] non-numeric (Ammir results) [facility]) MCHC 34 g/dL Normal (applies to [facility] non-numeric (Ammir results) [facility]) RDWSD 44.9 fL Normal (applies to [facility] non-numeric (Ammir results) [facility]) RDWCV 13.3 % Normal (applies to [facility] non-numeric (Ammir results) [facility]) PLT 264 Normal (applies to [facility] 10(3)/uL non-numeric (Ammir results) [facility]) MPV 10.9 fL Normal (applies to [facility] non-numeric (Ammir results) [facility]) NE# 4.05 Normal (applies to [facility] 10(3)/uL non-numeric (Ammir results) [facility]) LY# 2.94 Normal (applies to [facility] 10(3)/uL non-numeric (Ammir results) [facility]) MO# 0.70 Normal (applies to [facility] 10(3)/uL non-numeric (Ammir results) [facility]) EO# 0.06 Normal (applies to [facility] 10(3)/uL non-numeric (Ammir results) [facility]) IG# 0.02 Normal (applies to [facility] 10(3)/uL non-numeric (Ammir results) [facility]) NE% 51.80 % Normal (applies to [facility] non-numeric (Ammir results) [facility]) LY% 38 % Normal (applies to [facility] non-numeric (Ammir results) [facility]) MO% 9.0 % Normal (applies to [facility] non-numeric (Ammir results) [facility]) EO% 0.8 % Normal (applies to [facility] non-numeric (Ammir results) [facility]) BA% 0.4 % Normal (applies to [facility] non-numeric (Ammir results) [facility]) IG% 0.30 % Normal (applies to [facility] non-numeric (Ammir results) [facility]) ID Date Data Source [id number] 10/05/2017 12:00:00 AM EDT [facility] ([facility]mm[facility]) Name Value Range Interpretation Code Description Data Ning rce(s) Supporting Document(s ) APTT 34.70 sec Normal (applies to [facility] (Amm ir non-numeric results) [facility]) ID Date Data Source [id number] 10/05/2017 12:00:00 AM EDT [facility] ([facility]mmir [facility]) Name Value Range Interpretation Description Data Sup porting Code Source(s) Document(s ) PROTHROMBIN 19.5 sec Above high normal [facility] TIME, PT ([facility]mm[facility]) INR 1.56 Above high normal [facility] (Ammir [facility]) ID Date Data Source [id number] 07/20/2017 12:00:00 AM EDT [facility] ([facility]mmir [facility]) Name Value Range Interpretation Description Data Sup porting Code Source(s) Document(s ) Cholesterol 212 Above high normal [facility] [Moles/volume] mg/dL (Ammir in Pericardial [facility] fluid Physician) LDL CALCULATION 119.6 Normal (applies [facility] mg/dL to non-numeric (Ammir results) [facility]) CHOL/HDL RATIO 3.26 Normal (applies [facility] ratio to non-numeric (Ammir results) [facility]) HDL CHOLESTEROL 65 mg/dL Above high normal [facility] ([facility]mmir [facility]) VLDL CALCULATION 27.4 Normal (applies [facility] mg/dl to non-numeric (Ammir results) [facility]) TRIGLYCERIDES 137 Normal (applies [facility] mg/dL to non-numeric (Ammir results) [facility]) ID Date Data Source [id number] 07/20/2017 12:00:00 AM EDT [facility] ([facility]mmir [facility]) Name Value Range Interpretation Description Data Sup porting Code Source(s) Document(s ) GLUCOSE 78 mg/dL Normal (applies [facility] NONFASTING,SERUM to non-numeric (Ammir results) [facility]) SODIUM, SERUM 140 Normal (applies [facility] mEq/L to non-numeric (Ammir results) [facility]) POTASSIUM, SERUM 4.6 Normal (applies [facility] mEq/L to non-numeric (Ammir results) [facility]) CHLORIDE, SERUM 107 Normal (applies [facility] mEq/L to non-numeric (Ammir results) [facility]) Carbon dioxide 24 mEq/L Normal (applies [facility] [VFr/PPres] in to non-numeric (Ammir Gas delivery results) [facility] system Physician) Anion gap in 13.6 Normal (applies [facility] Body fluid mEq/L to non-numeric (Ammir results) [facility]) BLOOD UREA 17 mg/dL Normal (applies [facility] NITROGEN to non-numeric (Ammir results) [facility]) CREATININE, 0.80 Normal (applies [facility] SERUM mg/dL to non-numeric (Ammir results) [facility]) CALCIUM, SERUM 9.3 Normal (applies [facility] mg/dL to non-numeric (Ammir results) [facility]) TOTAL PROTEIN 7.5 g/dL Normal (applies [facility] to non-numeric (Ammir results) [facility]) Microalbumin 4.5 g/dL Normal (applies [facility] [Mass/time] in to non-numeric (Ammir Urine collected results) [facility] for unspecified Physician) duration Globulin 3.0 gldl Normal (applies [facility] [Mass/time] in to non-numeric (Ammir 24 hour Urine results) [facility]) A/G RATIO 1.50 Normal (applies [facility] g/dl to non-numeric (Ammir results) [facility]) BILIRUBIN, TOTAL 1.0 Normal (applies [facility] mg/dL to non-numeric (Ammir results) [facility]) ALKALINE 87 U/L Normal (applies [facility] PHOSPHATASE, ALP to non-numeric (Ammir results) [facility]) ALT (SGPT) 18 U/L Normal (applies [facility] to non-numeric (Ammir results) [facility]) AST 32 U/L Normal (applies [facility] to non-numeric (Ammir results) [facility]) EGFR NON AFR 72 Above high normal [facility] SOMALI mL/min/1 (Ammir .73m2 [facility]) EGFR AFR 87 Above high normal [facility] SOMALI mL/min/1 (Ammir .73m2 [facility]) ID Date Data Source [id number] 07/20/2017 12:00:00 AM EDT [facility] ([facility]mm[facility]) Name Value Range Interpretation Description Data Sup porting Code Source(s) Document(s ) WBC 8.9 Normal (applies to [facility] 10(3)/uL non-numeric (Ammir results) [facility]) RBC 4.6 Normal (applies to [facility] 10(6)/uL non-numeric (Ammir results) [facility]) Hemoglobin 14.3 g/dL Normal (applies to [facility] [Mass/volume] non-numeric (Ammir in Mixed results) [facility] venous blood Physician) by Oximetry Hematocrit 43.0 % Normal (applies to [facility] [Pure volume non-numeric (Ammir fraction] of results) [facility] Physician) Automated count MCV 92.7 fL Normal (applies to [facility] non-numeric (Ammir results) [facility]) MCH 31 pg Normal (applies to [facility] non-numeric (Ammir results) [facility]) MCHC 33 g/dL Normal (applies to [facility] non-numeric (Ammir results) [facility]) RDWSD 42.7 fL Normal (applies to [facility] non-numeric (Ammir results) [facility]) RDWCV 12.7 % Normal (applies to [facility] non-numeric (Ammir results) [facility]) PLT 225 Normal (applies to [facility] 10(3)/uL non-numeric (Ammir results) [facility]) MPV 11.3 fL Normal (applies to [facility] non-numeric (Ammir results) [facility]) NE# 5.28 Normal (applies to [facility] 10(3)/uL non-numeric (Ammir results) [facility]) LY# 2.52 Normal (applies to [facility] 10(3)/uL non-numeric (Ammir results) [facility]) MO# 0.94 Above high normal [facility] 10(3)/uL (Ammir [facility]) EO# 0.04 Normal (applies to [facility] 10(3)/uL non-numeric (Ammir results) [facility]) IG# 0.03 Normal (applies to [facility] 10(3)/uL non-numeric (Ammir results) [facility]) NE% 59.60 % Normal (applies to [facility] non-numeric (Ammir results) [facility]) LY% 29 % Normal (applies to [facility] non-numeric (Ammir results) [facility]) MO% 10.6 % Normal (applies to [facility] non-numeric (Ammir results) [facility]) EO% 0.5 % Normal (applies to [facility] non-numeric (Ammir results) [facility]) BA% 0.5 % Normal (applies to [facility] non-numeric (Ammir results) [facility]) IG% 0.30 % Normal (applies to [facility] non-numeric (Ammir results) [facility]) ID Date Data Source [id number] 07/20/2017 12:00:00 AM EDT [facility] ([facility]mm[facility]) Name Value Range Interpretation Description Data Sup porting Code Source(s) Document(s ) FOLATE SERUM 10.3 Above high normal [facility] (A mmir ng/mL [facility]) VITAMIN B12 697 pg/mL Normal (applies to [facility] (A mmir non-numeric [facility] results) Physician) ID Date Data Source [id number] 07/20/2017 12:00:00 AM EDT [facility] ([facility]mmir [facility]) Name Value Range Interpretation Description Data Sup porting Code Source(s) Document(s ) VITAMIN D 47.2 Normal (applies to [facility] (Amm ir 1.25 pg/mL non-numeric [facility] results) Physician) ID Date Data Source [id number] 07/20/2017 12:00:00 AM EDT [facility] ([facility]mmir [facility]) Name Value Range Interpretation Description Data Sup porting Code Source(s) Document(s ) Cholesterol 212 Above high normal [facility] [Moles/volume] mg/dL (Ammir in Pericardial [facility] fluid Physician) LDL CALCULATION 119.6 Normal (applies [facility] mg/dL to non-numeric (Ammir results) [facility]) CHOL/HDL RATIO 3.26 Normal (applies [facility] ratio to non-numeric (Ammir results) [facility]) HDL CHOLESTEROL 65 mg/dL Above high normal [facility] (Ammir [facility]) VLDL CALCULATION 27.4 Normal (applies [facility] mg/dl to non-numeric (Ammir results) [facility]) TRIGLYCERIDES 137 Normal (applies [facility] mg/dL to non-numeric (Ammir results) [facility]) ID Date Data Source [id number] 07/20/2017 12:00:00 AM EDT [facility] (Ammir [facility]) Name Value Range Interpretation Description Data Sup porting Code Source(s) Document(s ) GLUCOSE 78 mg/dL Normal (applies [facility] NONFASTING,SERUM to non-numeric (Ammir results) [facility]) SODIUM, SERUM 140 Normal (applies [facility] mEq/L to non-numeric (Ammir results) [facility]) POTASSIUM, SERUM 4.6 Normal (applies [facility] mEq/L to non-numeric (Ammir results) [facility]) CHLORIDE, SERUM 107 Normal (applies [facility] mEq/L to non-numeric (Ammir results) [facility]) Carbon dioxide 24 mEq/L Normal (applies [facility] [VFr/PPres] in to non-numeric (Ammir Gas delivery results) [facility] system Physician) Anion gap in 13.6 Normal (applies [facility] Body fluid mEq/L to non-numeric (Ammir results) [facility]) BLOOD UREA 17 mg/dL Normal (applies [facility] NITROGEN to non-numeric (Ammir results) [facility]) CREATININE, 0.80 Normal (applies [facility] SERUM mg/dL to non-numeric (Ammir results) [facility]) CALCIUM, SERUM 9.3 Normal (applies [facility] mg/dL to non-numeric (Ammir results) [facility]) TOTAL PROTEIN 7.5 g/dL Normal (applies [facility] to non-numeric (Ammir results) [facility]) Microalbumin 4.5 g/dL Normal (applies [facility] [Mass/time] in to non-numeric (Ammir Urine collected results) [facility] for unspecified Physician) duration Globulin 3.0 gldl Normal (applies [facility] [Mass/time] in to non-numeric (Ammir 24 hour Urine results) [facility]) A/G RATIO 1.50 Normal (applies [facility] g/dl to non-numeric (Ammir results) [facility]) BILIRUBIN, TOTAL 1.0 Normal (applies [facility] mg/dL to non-numeric (Ammir results) [facility]) ALKALINE 87 U/L Normal (applies [facility] PHOSPHATASE, ALP to non-numeric (Ammir results) [facility]) ALT (SGPT) 18 U/L Normal (applies [facility] to non-numeric (Ammir results) [facility]) AST 32 U/L Normal (applies [facility] to non-numeric (Ammir results) [facility]) EGFR NON AFR 72 Above high normal [facility] SOMALI mL/min/1 (Ammir .73m2 [facility]) EGFR AFR 87 Above high normal [facility] SOMALI mL/min/1 (Ammir .73m2 [facility]) ID Date Data Source [id number] 07/20/2017 12:00:00 AM EDT [facility] ([facility]mmir [facility]) Name Value Range Interpretation Description Data Sup porting Code Source(s) Document(s ) WBC 8.9 Normal (applies to [facility] 10(3)/uL non-numeric (Ammir results) [facility]) RBC 4.6 Normal (applies to [facility] 10(6)/uL non-numeric (Ammir results) [facility]) Hemoglobin 14.3 g/dL Normal (applies to [facility] [Mass/volume] non-numeric (Ammir in Mixed results) [facility] venous blood Physician) by Oximetry Hematocrit 43.0 % Normal (applies to [facility] [Pure volume non-numeric (Ammir fraction] of results) [facility] Physician) Automated count MCV 92.7 fL Normal (applies to [facility] non-numeric (Ammir results) [facility]) MCH 31 pg Normal (applies to [facility] non-numeric (Ammir results) [facility]) MCHC 33 g/dL Normal (applies to [facility] non-numeric (Ammir results) [facility]) RDWSD 42.7 fL Normal (applies to [facility] non-numeric (Ammir results) [facility]) RDWCV 12.7 % Normal (applies to [facility] non-numeric (Ammir results) [facility]) PLT 225 Normal (applies to [facility] 10(3)/uL non-numeric (Ammir results) [facility]) MPV 11.3 fL Normal (applies to [facility] non-numeric (Ammir results) [facility]) NE# 5.28 Normal (applies to [facility] 10(3)/uL non-numeric (Ammir results) [facility]) LY# 2.52 Normal (applies to [facility] 10(3)/uL non-numeric (Ammir results) [facility]) MO# 0.94 Above high normal [facility] 10(3)/uL (Ammir [facility]) EO# 0.04 Normal (applies to [facility] 10(3)/uL non-numeric (Ammir results) [facility]) IG# 0.03 Normal (applies to [facility] 10(3)/uL non-numeric (Ammir results) [facility]) NE% 59.60 % Normal (applies to [facility] non-numeric (Ammir results) [facility]) LY% 29 % Normal (applies to [facility] non-numeric (Ammir results) [facility]) MO% 10.6 % Normal (applies to [facility] non-numeric (Ammir results) [facility]) EO% 0.5 % Normal (applies to [facility] non-numeric (Ammir results) [facility]ician) BA% 0.5 % Normal (applies to [facility] non-numeric (Ammir results) [facility]ician) IG% 0.30 % Normal (applies to [facility] non-numeric (Ammir results) [facility]) ID Date Data Source [id number] 07/20/2017 12:00:00 AM EDT [facility] ([facility]mmir [facility]) Name Value Range Interpretation Description Data Sup porting Code Source(s) Document(s ) FOLATE SERUM 10.3 Above high normal [facility] (A mmir ng/mL [facility]) VITAMIN B12 697 pg/mL Normal (applies to [facility] (A mmir non-numeric [facility] results) Physician) ID Date Data Source [id number] 07/20/2017 12:00:00 AM EDT [facility] ([facility]mmir [facility]) Name Value Range Interpretation Description Data Sup porting Code Source(s) Document(s ) VITAMIN D 47.2 Normal (applies to [facility] (Amm ir 1.25 pg/mL non-numeric [facility] results) Physician) ID Date Data Source [id number] 07/20/2017 12:00:00 AM EDT [facility] (Ammir [facility]) Name Value Range Interpretation Description Data Sup porting Code Source(s) Document(s ) Cholesterol 212 Above high normal [facility] [Moles/volume] mg/dL (Ammir in Pericardial [facility] fluid Physician) LDL CALCULATION 119.6 Normal (applies [facility] mg/dL to non-numeric (Ammir results) [facility]) CHOL/HDL RATIO 3.26 Normal (applies [facility] ratio to non-numeric (Ammir results) [facility]) HDL CHOLESTEROL 65 mg/dL Above high normal [facility] (Ammir [facility] Phys[facility]) VLDL CALCULATION 27.4 Normal (applies [facility] mg/dl to non-numeric (Ammir results) [facility]) TRIGLYCERIDES 137 Normal (applies [facility] mg/dL to non-numeric (Ammir results) [facility]) ID Date Data Source [id number] 07/20/2017 12:00:00 AM EDT [facility] (Ammir [facility]) Name Value Range Interpretation Description Data Sup porting Code Source(s) Document(s ) GLUCOSE 78 mg/dL Normal (applies [facility] NONFASTING,SERUM to non-numeric (Ammir results) [facility]) SODIUM, SERUM 140 Normal (applies [facility] mEq/L to non-numeric (Ammir results) [facility]ician) POTASSIUM, SERUM 4.6 Normal (applies [facility] mEq/L to non-numeric (Ammir results) [facility]ician) CHLORIDE, SERUM 107 Normal (applies [facility] mEq/L to non-numeric (Ammir results) [facility]) Carbon dioxide 24 mEq/L Normal (applies [facility] [VFr/PPres] in to non-numeric (Ammir Gas delivery results) [facility] system Physician) Anion gap in 13.6 Normal (applies [facility] Body fluid mEq/L to non-numeric (Ammir results) [facility]) BLOOD UREA 17 mg/dL Normal (applies [facility] NITROGEN to non-numeric (Ammir results) [facility] Physician) CREATININE, 0.80 Normal (applies [facility] SERUM mg/dL to non-numeric (Ammir results) [facility] Physician) CALCIUM, SERUM 9.3 Normal (applies [facility] mg/dL to non-numeric (Ammir results) [facility]ician) TOTAL PROTEIN 7.5 g/dL Normal (applies [facility] to non-numeric (Ammir results) [facility]ician) Microalbumin 4.5 g/dL Normal (applies [facility] [Mass/time] in to non-numeric (Ammir Urine collected results) [facility] for unspecified Physician) duration Globulin 3.0 gldl Normal (applies [facility] [Mass/time] in to non-numeric (Ammir 24 hour Urine results) [facility] Physician) A/G RATIO 1.50 Normal (applies [facility] g/dl to non-numeric (Ammir results) [facility] Physician) BILIRUBIN, TOTAL 1.0 Normal (applies [facility] mg/dL to non-numeric (Ammir results) [facility] Physician) ALKALINE 87 U/L Normal (applies [facility] PHOSPHATASE, ALP to non-numeric (Ammir results) [facility] Physician) ALT (SGPT) 18 U/L Normal (applies [facility] to non-numeric (Ammir results) [facility] Physician) AST 32 U/L Normal (applies [facility] to non-numeric (Ammir results) [facility] Physician) EGFR NON AFR 72 Above high normal [facility] SOMALI mL/min/1 (Ammir .73m2 [facility]) EGFR AFR 87 Above high normal [facility] SOMALI mL/min/1 (Ammir .73m2 [facility]ician) ID Date Data Source [id number] 07/20/2017 12:00:00 AM EDT [facility] (Ammir [facility]) Name Value Range Interpretation Description Data Sup porting Code Source(s) Document(s ) WBC 8.9 Normal (applies to [facility] 10(3)/uL non-numeric (Ammir results) [facility]) RBC 4.6 Normal (applies to [facility] 10(6)/uL non-numeric (Ammir results) [facility] Physician) Hemoglobin 14.3 g/dL Normal (applies to [facility] [Mass/volume] non-numeric (Ammir in Mixed results) [facility] venous blood Physician) by Oximetry Hematocrit 43.0 % Normal (applies to [facility] [Pure volume non-numeric (Ammir fraction] of results) [facility] Blood by Physician) Automated count MCV 92.7 fL Normal (applies to [facility] non-numeric (Ammir results) [facility] Physician) MCH 31 pg Normal (applies to [facility] non-numeric (Ammir results) [facility] Physician) MCHC 33 g/dL Normal (applies to [facility] non-numeric (Ammir results) [facility] Physician) RDWSD 42.7 fL Normal (applies to [facility] non-numeric (Ammir results) [facility] Physician) RDWCV 12.7 % Normal (applies to [facility] non-numeric (Ammir results) [facility] Physician) PLT 225 Normal (applies to [facility] 10(3)/uL non-numeric (Ammir results) [facility] Physician) MPV 11.3 fL Normal (applies to [facility] non-numeric (Ammir results) [facility] Physician) NE# 5.28 Normal (applies to [facility] 10(3)/uL non-numeric (Ammir results) [facility] Physician) LY# 2.52 Normal (applies to [facility] 10(3)/uL non-numeric (Ammir results) [facility] Physician) MO# 0.94 Above high normal [facility] 10(3)/uL (Ammir [facility] Physician) EO# 0.04 Normal (applies to [facility] 10(3)/uL non-numeric (Ammir results) [facility] Physician) IG# 0.03 Normal (applies to [facility] 10(3)/uL non-numeric (Ammir results) [facility] Physician) NE% 59.60 % Normal (applies to [facility] non-numeric (Ammir results) [facility] Physician) LY% 29 % Normal (applies to [facility] non-numeric (Ammir results) [facility] Physician) MO% 10.6 % Normal (applies to [facility] non-numeric (Ammir results) [facility] Physician) EO% 0.5 % Normal (applies to [facility] non-numeric (Ammir results) [facility] Physician) BA% 0.5 % Normal (applies to [facility] non-numeric (Ammir results) [facility] Physician) IG% 0.30 % Normal (applies to [facility] non-numeric (Ammir results) [facility] Physician) ID Date Data Source [id number] 07/20/2017 12:00:00 AM EDT [facility] (Ammir [facility] Physician) Name Value Range Interpretation Description Data Sup porting Code Source(s) Document(s ) FOLATE SERUM 10.3 Above high normal [facility] (A mmir ng/mL [facility] Physician) VITAMIN B12 697 pg/mL Normal (applies to [facility] (A mmir non-numeric [facility] results) Physician) ID Date Data Source [id number] 07/20/2017 12:00:00 AM EDT [facility] (Ammir [facility] Physician) Name Value Range Interpretation Description Data Sup porting Code Source(s) Document(s ) VITAMIN D 47.2 Normal (applies to [facility] (Amm ir 1.25 pg/mL non-numeric [facility] results) Physician) ID Date Data Source [id number] 07/20/2017 12:00:00 AM EDT [facility] (Ammir [facility] Physician) Name Value Range Interpretation Description Data Sup porting Code Source(s) Document(s ) Cholesterol 212 Above high normal [facility] [Moles/volume] mg/dL (Ammir in Pericardial [facility] fluid Physician) LDL CALCULATION 119.6 Normal (applies [facility] mg/dL to non-numeric (Ammir results) [facility] Physician) CHOL/HDL RATIO 3.26 Normal (applies [facility] ratio to non-numeric (Ammir results) [facility] Physician) HDL CHOLESTEROL 65 mg/dL Above high normal [facility] (Ammir [facility] Physician) VLDL CALCULATION 27.4 Normal (applies [facility] mg/dl to non-numeric (Ammir results) [facility] Physician) TRIGLYCERIDES 137 Normal (applies [facility] mg/dL to non-numeric (Ammir results) [facility] Physician) ID Date Data Source [id number] 07/20/2017 12:00:00 AM EDT [facility] (Ammir [facility] Physician) Name Value Range Interpretation Description Data Sup porting Code Source(s) Document(s ) GLUCOSE 78 mg/dL Normal (applies [facility] NONFASTING,SERUM to non-numeric (Ammir results) [facility] Physician) SODIUM, SERUM 140 Normal (applies [facility] mEq/L to non-numeric (Ammir results) [facility] Physician) POTASSIUM, SERUM 4.6 Normal (applies [facility] mEq/L to non-numeric (Ammir results) [facility] Physician) CHLORIDE, SERUM 107 Normal (applies [facility] mEq/L to non-numeric (Ammir results) [facility] Physician) Carbon dioxide 24 mEq/L Normal (applies [facility] [VFr/PPres] in to non-numeric (Ammir Gas delivery results) [facility] system Physician) Anion gap in 13.6 Normal (applies [facility] Body fluid mEq/L to non-numeric (Ammir results) [facility] Physician) BLOOD UREA 17 mg/dL Normal (applies [facility] NITROGEN to non-numeric (Ammir results) [facility] Physician) CREATININE, 0.80 Normal (applies [facility] SERUM mg/dL to non-numeric (Ammir results) [facility] Physician) CALCIUM, SERUM 9.3 Normal (applies [facility] mg/dL to non-numeric (Ammir results) [facility] Physician) TOTAL PROTEIN 7.5 g/dL Normal (applies [facility] to non-numeric (Ammir results) [facility] Physician) Microalbumin 4.5 g/dL Normal (applies [facility] [Mass/time] in to non-numeric (Ammir Urine collected results) [facility] for unspecified Physician) duration Globulin 3.0 gldl Normal (applies [facility] [Mass/time] in to non-numeric (Ammir 24 hour Urine results) [facility] Physician) A/G RATIO 1.50 Normal (applies [facility] g/dl to non-numeric (Ammir results) [facility] Physician) BILIRUBIN, TOTAL 1.0 Normal (applies [facility] mg/dL to non-numeric (Ammir results) [facility] Physician) ALKALINE 87 U/L Normal (applies [facility] PHOSPHATASE, ALP to non-numeric (Ammir results) [facility] Physician) ALT (SGPT) 18 U/L Normal (applies [facility] to non-numeric (Ammir results) [facility] Physician) AST 32 U/L Normal (applies [facility] to non-numeric (Ammir results) [facility] Physician) EGFR NON AFR 72 Above high normal [facility] SOMALI mL/min/1 (Ammir .73m2 [facility] Physician) EGFR AFR 87 Above high normal [facility] SOMALI mL/min/1 (Ammir .73m2 [facility] Physician) ID Date Data Source [id number] 07/20/2017 12:00:00 AM EDT [facility] (Ammir [facility] Physician) Name Value Range Interpretation Description Data Sup porting Code Source(s) Document(s ) WBC 8.9 Normal (applies to [facility] 10(3)/uL non-numeric (Ammir results) [facility] Physician) RBC 4.6 Normal (applies to [facility] 10(6)/uL non-numeric (Ammir results) [facility] Physician) Hemoglobin 14.3 g/dL Normal (applies to [facility] [Mass/volume] non-numeric (Ammir in Mixed results) [facility] venous blood Physician) by Oximetry Hematocrit 43.0 % Normal (applies to [facility] [Pure volume non-numeric (Ammir fraction] of results) [facility] Blood by Physician) Automated count MCV 92.7 fL Normal (applies to [facility] non-numeric (Ammir results) [facility] Physician) MCH 31 pg Normal (applies to [facility] non-numeric (Ammir results) [facility] Physician) MCHC 33 g/dL Normal (applies to [facility] non-numeric (Ammir results) [facility] Physician) RDWSD 42.7 fL Normal (applies to [facility] non-numeric (Ammir results) [facility] Physician) RDWCV 12.7 % Normal (applies to [facility] non-numeric (Ammir results) [facility]) PLT 225 Normal (applies to [facility] 10(3)/uL non-numeric (Ammir results) [facility]) MPV 11.3 fL Normal (applies to [facility] non-numeric (Ammir results) [facility] Phys[facility]) NE# 5.28 Normal (applies to [facility] 10(3)/uL non-numeric (Ammir results) [facility] Phys[facility]) LY# 2.52 Normal (applies to [facility] 10(3)/uL non-numeric (Ammir results) [facility] Physician) MO# 0.94 Above high normal [facility] 10(3)/uL (Ammir [facility]) EO# 0.04 Normal (applies to [facility] 10(3)/uL non-numeric (Ammir results) [facility] Physician) IG# 0.03 Normal (applies to [facility] 10(3)/uL non-numeric (Ammir results) [facility] Physician) NE% 59.60 % Normal (applies to [facility] non-numeric (Ammir results) [facility] Physician) LY% 29 % Normal (applies to [facility] non-numeric (Ammir results) [facility] Physician) MO% 10.6 % Normal (applies to [facility] non-numeric (Ammir results) [facility] Physician) EO% 0.5 % Normal (applies to [facility] non-numeric (Ammir results) [facility] Physician) BA% 0.5 % Normal (applies to [facility] non-numeric (Ammir results) [facility] Physician) IG% 0.30 % Normal (applies to [facility] non-numeric (Ammir results) [facility] Physician) ID Date Data Source [id number] 07/20/2017 12:00:00 AM EDT [facility] ([facility]mmir [facility]) Name Value Range Interpretation Description Data Sup porting Code Source(s) Document(s ) FOLATE SERUM 10.3 Above high normal [facility] (A mmir ng/mL [facility]) VITAMIN B12 697 pg/mL Normal (applies to [facility] (A mmir non-numeric [facility] results) Physician) ID Date Data Source [id number] 07/20/2017 12:00:00 AM EDT [facility] ([facility]mmir [facility]) Name Value Range Interpretation Description Data Sup porting Code Source(s) Document(s ) VITAMIN D 47.2 Normal (applies to [facility] (Amm ir 1.25 pg/mL non-numeric [facility] results) Physician) ID Date Data Source [id number] 04/26/2017 12:00:00 AM EST [facility] ([facility]mmir [facility]) Name Value Range Interpretation Description Data Sup porting Code Source(s) Document(s ) GLUCOSE 101 Normal (applies [facility] NONFASTING,SERUM mg/dL to non-numeric (Ammir results) [facility] Physician) SODIUM, SERUM 138 Normal (applies [facility] mEq/L to non-numeric (Ammir results) [facility] Physician) POTASSIUM, SERUM 5.0 Normal (applies [facility] mEq/L to non-numeric (Ammir results) [facility] Physician) CHLORIDE, SERUM 108 Normal (applies [facility] mEq/L to non-numeric (Ammir results) [facility] Physician) Carbon dioxide 21 mEq/L Below low normal [facility] [VFr/PPres] in (Ammir Gas delivery [facility] system Physician) Anion gap in 14 mEq/L Normal (applies [facility] Body fluid to non-numeric (Ammir results) [facility] Physician) BLOOD UREA 18 mg/dL Normal (applies [facility] NITROGEN to non-numeric (Ammir results) [facility] Physician) CREATININE, 1.20 Above high normal [facility] SERUM mg/dL (Ammir [facility] Phys[facility]) BUN/CREATININE 15.0 Normal (applies [facility] RATIO to non-numeric (Ammir results) [facility] Physician) CALCIUM, SERUM 10.3 Normal (applies [facility] mg/dL to non-numeric (Ammir results) [facility] Physician) TOTAL PROTEIN 7.0 g/dL Normal (applies [facility] to non-numeric (Ammir results) [facility] Physician) Microalbumin 4.7 g/dL Normal (applies [facility] [Mass/time] in to non-numeric (Ammir Urine collected results) [facility] for unspecified Physician) duration Globulin 2.3 gldl Normal (applies [facility] [Mass/time] in to non-numeric (Ammir 24 hour Urine results) [facility] Physician) A/G RATIO 2.04 Normal (applies [facility] g/dl to non-numeric (Ammir results) [facility] Physician) BILIRUBIN, TOTAL 0.7 Normal (applies [facility] mg/dL to non-numeric (Ammir results) [facility] Physician) ALKALINE 88 U/L Normal (applies [facility] PHOSPHATASE, ALP to non-numeric (Ammir results) [facility] Physician) ALT (SGPT) 24 U/L Normal (applies [facility] to non-numeric (Ammir results) [facility] Physician) AST 35 U/L Above high normal [facility] (Ammir [facility]) EGFR NON AFR 45 Above high normal [facility] SOMALI mL/min/1 (Ammir .73m2 [facility] Phys[facility]) EGFR AFR 55 Above high normal [facility] SOMALI mL/min/1 (Ammir .73m2 [facility] Physician) ID Date Data Source [id number] 04/26/2017 12:00:00 AM EST [facility] ([facility]mmir [facility]) Name Value Range Interpretation Description Data Sup porting Code Source(s) Document(s ) Ferritin 93.3 Normal (applies to [facility] (Amm ir [Interpretat ng/mL non-numeric [facility] ion] in results) Physician) Blood ID Date Data Source [id number] 04/26/2017 12:00:00 AM EST [facility] ([facility]mmir [facility]) Name Value Range Interpretation Description Data Sup porting Code Source(s) Document(s ) WBC 6.2 Normal (applies to [facility] 10(3)/uL non-numeric (Ammir results) [facility]) RBC 4.7 Normal (applies to [facility] 10(6)/uL non-numeric (Ammir results) [facility] Physician) Hemoglobin 14.6 g/dL Normal (applies to [facility] [Mass/volume] non-numeric (Ammir in Mixed results) [facility] venous blood Physician) by Oximetry Hematocrit 43.1 % Normal (applies to [facility] [Pure volume non-numeric (Ammir fraction] of results) [facility] Blood by Physician) Automated count MCV 92.7 fL Normal (applies to [facility] non-numeric (Ammir results) [facility] Physician) MCH 31 pg Normal (applies to [facility] non-numeric (Ammir results) [facility] Physician) MCHC 34 g/dL Normal (applies to [facility] non-numeric (Ammir results) [facility] Physician) RDWSD 43.5 fL Normal (applies to [facility] non-numeric (Ammir results) [facility] Physician) RDWCV 12.8 % Normal (applies to [facility] non-numeric (Ammir results) [facility] Physician) PLT 311 Normal (applies to [facility] 10(3)/uL non-numeric (Ammir results) [facility] Physician) MPV 11.2 fL Normal (applies to [facility] non-numeric (Ammir results) [facility] Physician) NE# 3.53 Normal (applies to [facility] 10(3)/uL non-numeric (Ammir results) [facility] Physician) LY# 1.88 Normal (applies to [facility] 10(3)/uL non-numeric (Ammir results) [facility] Physician) MO# 0.66 Normal (applies to [facility] 10(3)/uL non-numeric (Ammir results) [facility] Physician) EO# 0.06 Normal (applies to [facility] 10(3)/uL non-numeric (Ammir results) [facility] Physician) IG# 0.02 Normal (applies to [facility] 10(3)/uL non-numeric (Ammir results) [facility] Physician) NE% 57.00 % Normal (applies to [facility] non-numeric (Ammir results) [facility] Physician) LY% 30 % Normal (applies to [facility] non-numeric (Ammir results) [facility] Physician) MO% 10.7 % Normal (applies to [facility] non-numeric (Ammir results) [facility] Physician) EO% 1.0 % Normal (applies to [facility] non-numeric (Ammir results) [facility] Physician) BA% 0.6 % Normal (applies to [facility] non-numeric (Ammir results) [facility] Physician) IG% 0.30 % Normal (applies to [facility] non-numeric (Ammir results) [facility] Physician) ID Date Data Source [id number] 04/26/2017 12:00:00 AM EST [facility] ([facility]mmir [facility]) Name Value Range Interpretation Description Data Sup porting Code Source(s) Document(s ) IRON, TOTAL 99 ug/dL Normal (applies [facility] to non-numeric (Ammir results) [facility] Physician) Transferrin 312 mg/dL Normal (applies [facility] [Mass/time] in to non-numeric (Ammir 24 hour Urine results) [facility] Physician) TIBC 437.5 Normal (applies [facility] ug/dL to non-numeric (Ammir results) [facility] Physician) UIBC 338.5 Normal (applies [facility] ug/dL to non-numeric (Ammir results) [facility] Physician) %SATURATION 22.6 % Normal (applies [facility] to non-numeric (Ammir results) [facility] Physician) ID Date Data Source [id number] 04/26/2017 12:00:00 AM EST [facility] (Ammir [facility]) Name Value Range Interpretation Description Data Sup porting Code Source(s) Document(s ) GLUCOSE 101 Normal (applies [facility] NONFASTING,SERUM mg/dL to non-numeric (Ammir results) [facility] Physician) SODIUM, SERUM 138 Normal (applies [facility] mEq/L to non-numeric (Ammir results) [facility] Physician) POTASSIUM, SERUM 5.0 Normal (applies [facility] mEq/L to non-numeric (Ammir results) [facility] Physician) CHLORIDE, SERUM 108 Normal (applies [facility] mEq/L to non-numeric (Ammir results) [facility] Physician) Carbon dioxide 21 mEq/L Below low normal [facility] [VFr/PPres] in (Ammir Gas delivery [facility] system Physician) Anion gap in 14 mEq/L Normal (applies [facility] Body fluid to non-numeric (Ammir results) [facility] Physician) BLOOD UREA 18 mg/dL Normal (applies [facility] NITROGEN to non-numeric (Ammir results) [facility] Physician) CREATININE, 1.20 Above high normal [facility] SERUM mg/dL (Ammir [facility] Physician) BUN/CREATININE 15.0 Normal (applies [facility] RATIO to non-numeric (Ammir results) [facility] Phys[facility]) CALCIUM, SERUM 10.3 Normal (applies [facility] mg/dL to non-numeric (Ammir results) [facility] Physician) TOTAL PROTEIN 7.0 g/dL Normal (applies [facility] to non-numeric (Ammir results) [facility] Physician) Microalbumin 4.7 g/dL Normal (applies [facility] [Mass/time] in to non-numeric (Ammir Urine collected results) [facility] for unspecified Physician) duration Globulin 2.3 gldl Normal (applies [facility] [Mass/time] in to non-numeric (Ammir 24 hour Urine results) [facility] Physician) A/G RATIO 2.04 Normal (applies [facility] g/dl to non-numeric (Ammir results) [facility] Physician) BILIRUBIN, TOTAL 0.7 Normal (applies [facility] mg/dL to non-numeric (Ammir results) [facility] Physician) ALKALINE 88 U/L Normal (applies [facility] PHOSPHATASE, ALP to non-numeric (Ammir results) [facility] Physician) ALT (SGPT) 24 U/L Normal (applies [facility] to non-numeric (Ammir results) [facility] Physician) AST 35 U/L Above high normal [facility] (Ammir [facility]) EGFR NON AFR 45 Above high normal [facility] SOMALI mL/min/1 (Ammir .73m2 [facility] Physician) EGFR AFR 55 Above high normal [facility] SOMALI mL/min/1 (Ammir .73m2 [facility] Phys[facility]) ID Date Data Source [id number] 04/26/2017 12:00:00 AM EST [facility] (Ammir [facility]) Name Value Range Interpretation Description Data Sup porting Code Source(s) Document(s ) Ferritin 93.3 Normal (applies to [facility] (Amm ir [Interpretat ng/mL non-numeric [facility] ion] in results) Physician) Blood ID Date Data Source [id number] 04/26/2017 12:00:00 AM EST [facility] (Ammir [facility]) Name Value Range Interpretation Description Data Sup porting Code Source(s) Document(s ) WBC 6.2 Normal (applies to [facility] 10(3)/uL non-numeric (Ammir results) [facility]) RBC 4.7 Normal (applies to [facility] 10(6)/uL non-numeric (Ammir results) [facility] Physician) Hemoglobin 14.6 g/dL Normal (applies to [facility] [Mass/volume] non-numeric (Ammir in Mixed results) [facility] venous blood Physician) by Oximetry Hematocrit 43.1 % Normal (applies to [facility] [Pure volume non-numeric (Ammir fraction] of results) [facility] Blood by Physician) Automated count MCV 92.7 fL Normal (applies to [facility] non-numeric (Ammir results) [facility] Physician) MCH 31 pg Normal (applies to [facility] non-numeric (Ammir results) [facility] Physician) MCHC 34 g/dL Normal (applies to [facility] non-numeric (Ammir results) [facility] Physician) RDWSD 43.5 fL Normal (applies to [facility] non-numeric (Ammir results) [facility] Physician) RDWCV 12.8 % Normal (applies to [facility] non-numeric (Ammir results) [facility] Physician) PLT 311 Normal (applies to [facility] 10(3)/uL non-numeric (Ammir results) [facility] Physician) MPV 11.2 fL Normal (applies to [facility] non-numeric (Ammir results) [facility] Physician) NE# 3.53 Normal (applies to [facility] 10(3)/uL non-numeric (Ammir results) [facility] Physician) LY# 1.88 Normal (applies to [facility] 10(3)/uL non-numeric (Ammir results) [facility] Physician) MO# 0.66 Normal (applies to [facility] 10(3)/uL non-numeric (Ammir results) [facility] Physician) EO# 0.06 Normal (applies to [facility] 10(3)/uL non-numeric (Ammir results) [facility] Physician) IG# 0.02 Normal (applies to [facility] 10(3)/uL non-numeric (Ammir results) [facility] Physician) NE% 57.00 % Normal (applies to [facility] non-numeric (Ammir results) [facility] Physician) LY% 30 % Normal (applies to [facility] non-numeric (Ammir results) [facility] Physician) MO% 10.7 % Normal (applies to [facility] non-numeric (Ammir results) [facility] Physician) EO% 1.0 % Normal (applies to [facility] non-numeric (Ammir results) [facility] Physician) BA% 0.6 % Normal (applies to [facility] non-numeric (Ammir results) [facility] Physician) IG% 0.30 % Normal (applies to [facility] non-numeric (Ammir results) [facility] Physician) ID Date Data Source [id number] 04/26/2017 12:00:00 AM EST [facility] (Ammir [facility]) Name Value Range Interpretation Description Data Sup porting Code Source(s) Document(s ) IRON, TOTAL 99 ug/dL Normal (applies [facility] to non-numeric (Ammir results) [facility] Physician) Transferrin 312 mg/dL Normal (applies [facility] [Mass/time] in to non-numeric (Ammir 24 hour Urine results) [facility] Physician) TIBC 437.5 Normal (applies [facility] ug/dL to non-numeric (Ammir results) [facility] Physician) UIBC 338.5 Normal (applies [facility] ug/dL to non-numeric (Ammir results) [facility] Physician) %SATURATION 22.6 % Normal (applies [facility] to non-numeric (Ammir results) [facility] Physician) ID Date Data Source [id number] 04/26/2017 12:00:00 AM EST [facility] (Ammir [facility]) Name Value Range Interpretation Description Data Sup porting Code Source(s) Document(s ) GLUCOSE 101 Normal (applies [facility] NONFASTING,SERUM mg/dL to non-numeric (Ammir results) [facility] Physician) SODIUM, SERUM 138 Normal (applies [facility] mEq/L to non-numeric (Ammir results) [facility] Physician) POTASSIUM, SERUM 5.0 Normal (applies [facility] mEq/L to non-numeric (Ammir results) [facility] Physician) CHLORIDE, SERUM 108 Normal (applies [facility] mEq/L to non-numeric (Ammir results) [facility] Physician) Carbon dioxide 21 mEq/L Below low normal [facility] [VFr/PPres] in (Ammir Gas delivery [facility] system Physician) Anion gap in 14 mEq/L Normal (applies [facility] Body fluid to non-numeric (Ammir results) [facility] Physician) BLOOD UREA 18 mg/dL Normal (applies [facility] NITROGEN to non-numeric (Ammir results) [facility] Physician) CREATININE, 1.20 Above high normal [facility] SERUM mg/dL (Ammir [facility] Physician) BUN/CREATININE 15.0 Normal (applies [facility] RATIO to non-numeric (Ammir results) [facility] Physician) CALCIUM, SERUM 10.3 Normal (applies [facility] mg/dL to non-numeric (Ammir results) [facility] Physician) TOTAL PROTEIN 7.0 g/dL Normal (applies [facility] to non-numeric (Ammir results) [facility] Physician) Microalbumin 4.7 g/dL Normal (applies [facility] [Mass/time] in to non-numeric (Ammir Urine collected results) [facility] for unspecified Physician) duration Globulin 2.3 gldl Normal (applies [facility] [Mass/time] in to non-numeric (Ammir 24 hour Urine results) [facility] Physician) A/G RATIO 2.04 Normal (applies [facility] g/dl to non-numeric (Ammir results) [facility] Physician) BILIRUBIN, TOTAL 0.7 Normal (applies [facility] mg/dL to non-numeric (Ammir results) [facility] Physician) ALKALINE 88 U/L Normal (applies [facility] PHOSPHATASE, ALP to non-numeric (Ammir results) [facility] Physician) ALT (SGPT) 24 U/L Normal (applies [facility] to non-numeric (Ammir results) [facility] Physician) AST 35 U/L Above high normal [facility] (Ammir [facility] Physician) EGFR NON AFR 45 Above high normal [facility] SOMALI mL/min/1 (Ammir .73m2 [facility] Physician) EGFR AFR 55 Above high normal [facility] SOMALI mL/min/1 (Ammir .73m2 [facility] Physician) ID Date Data Source [id number] 04/26/2017 12:00:00 AM EST [facility] (Ammir [facility] Phys[facility]) Name Value Range Interpretation Description Data Sup porting Code Source(s) Document(s ) Ferritin 93.3 Normal (applies to [facility] (Amm ir [Interpretat ng/mL non-numeric [facility] ion] in results) Physician) Blood ID Date Data Source [id number] 04/26/2017 12:00:00 AM EST [facility] (Ammir [facility] Phys[facility]) Name Value Range Interpretation Description Data Sup porting Code Source(s) Document(s ) WBC 6.2 Normal (applies to [facility] 10(3)/uL non-numeric (Ammir results) [facility] Physician) RBC 4.7 Normal (applies to [facility] 10(6)/uL non-numeric (Ammir results) [facility] Physician) Hemoglobin 14.6 g/dL Normal (applies to [facility] [Mass/volume] non-numeric (Ammir in Mixed results) [place] venous blood Physician) by Oximetry Hematocrit 43.1 % Normal (applies to [facility] [Pure volume non-numeric (Ammir fraction] of results) [facility] Blood by Physician) Automated count MCV 92.7 fL Normal (applies to [facility] non-numeric (Ammir results) [facility] Physician) MCH 31 pg Normal (applies to [facility] non-numeric (Ammir results) [facility] Physician) MCHC 34 g/dL Normal (applies to [facility] non-numeric (Ammir results) [facility] Physician) RDWSD 43.5 fL Normal (applies to [facility] non-numeric (Ammir results) [facility] Physician) RDWCV 12.8 % Normal (applies to [facility] non-numeric (Ammir results) [facility] Physician) PLT 311 Normal (applies to [facility] 10(3)/uL non-numeric (Ammir results) [facility] Physician) MPV 11.2 fL Normal (applies to [facility] non-numeric (Ammir results) [facility] Physician) NE# 3.53 Normal (applies to [facility] 10(3)/uL non-numeric (Ammir results) [facility] Physician) LY# 1.88 Normal (applies to [facility] 10(3)/uL non-numeric (Ammir results) [facility] Physician) MO# 0.66 Normal (applies to [facility] 10(3)/uL non-numeric (Ammir results) [facility] Physician) EO# 0.06 Normal (applies to [facility] 10(3)/uL non-numeric (Ammir results) [facility] Physician) IG# 0.02 Normal (applies to [facility] 10(3)/uL non-numeric (Ammir results) [facility] Physician) NE% 57.00 % Normal (applies to [facility] non-numeric (Ammir results) [facility] Physician) LY% 30 % Normal (applies to [facility] non-numeric (Ammir results) [facility] Physician) MO% 10.7 % Normal (applies to [facility] non-numeric (Ammir results) [facility] Physician) EO% 1.0 % Normal (applies to [facility] non-numeric (Ammir results) [facility] Physician) BA% 0.6 % Normal (applies to [facility] non-numeric (Ammir results) [facility] Physician) IG% 0.30 % Normal (applies to [facility] non-numeric (Ammir results) [facility] Physician) ID Date Data Source [id number] 04/26/2017 12:00:00 AM EST [facility] (Ammir [facility] Physician) Name Value Range Interpretation Description Data Sup porting Code Source(s) Document(s ) IRON, TOTAL 99 ug/dL Normal (applies [facility] to non-numeric (Ammir results) [facility] Physician) Transferrin 312 mg/dL Normal (applies [facility] [Mass/time] in to non-numeric (Ammir 24 hour Urine results) [facility] Physician) TIBC 437.5 Normal (applies [facility] ug/dL to non-numeric (Ammir results) [facility] Physician) UIBC 338.5 Normal (applies [facility] ug/dL to non-numeric (Ammir results) [facility] Physician) %SATURATION 22.6 % Normal (applies [facility] to non-numeric (Ammir results) [facility] Physician) ID Date Data Source [id number] 04/26/2017 12:00:00 AM EST [facility] (Ammir [facility] Physician) Name Value Range Interpretation Description Data Sup porting Code Source(s) Document(s ) GLUCOSE 101 Normal (applies [facility] NONFASTING,SERUM mg/dL to non-numeric (Ammir results) [facility] Physician) SODIUM, SERUM 138 Normal (applies [facility] mEq/L to non-numeric (Ammir results) [facility] Physician) POTASSIUM, SERUM 5.0 Normal (applies [facility] mEq/L to non-numeric (Ammir results) [facility] Physician) CHLORIDE, SERUM 108 Normal (applies [facility] mEq/L to non-numeric (Ammir results) [facility] Physician) Carbon dioxide 21 mEq/L Below low normal [facility] [VFr/PPres] in (Ammir Gas delivery [facility] system Physician) Anion gap in 14 mEq/L Normal (applies [facility] Body fluid to non-numeric (Ammir results) [facility] Physician) BLOOD UREA 18 mg/dL Normal (applies [facility] NITROGEN to non-numeric (Ammir results) [facility] Physician) CREATININE, 1.20 Above high normal [facility] SERUM mg/dL (Ammir [facility] Physician) BUN/CREATININE 15.0 Normal (applies [facility] RATIO to non-numeric (Ammir results) [facility] Physician) CALCIUM, SERUM 10.3 Normal (applies [facility] mg/dL to non-numeric (Ammir results) [facility] Physician) TOTAL PROTEIN 7.0 g/dL Normal (applies [facility] to non-numeric (Ammir results) [facility] Physician) Microalbumin 4.7 g/dL Normal (applies [facility] [Mass/time] in to non-numeric (Ammir Urine collected results) [facility] for unspecified Physician) duration Globulin 2.3 gldl Normal (applies [facility] [Mass/time] in to non-numeric (Ammir 24 hour Urine results) [facility] Physician) A/G RATIO 2.04 Normal (applies [facility] g/dl to non-numeric (Ammir results) [facility] Physician) BILIRUBIN, TOTAL 0.7 Normal (applies [facility] mg/dL to non-numeric (Ammir results) [facility] Physician) ALKALINE 88 U/L Normal (applies [facility] PHOSPHATASE, ALP to non-numeric (Ammir results) [facility] Physician) ALT (SGPT) 24 U/L Normal (applies [facility] to non-numeric (Ammir results) [facility] Physician) AST 35 U/L Above high normal [facility] (Ammir [facility] Physician) EGFR NON AFR 45 Above high normal [facility] SOMALI mL/min/1 (Ammir .73m2 [facility] Physician) EGFR AFR 55 Above high normal [facility] SOMALI mL/min/1 (Ammir .73m2 [facility] Physician) ID Date Data Source [id number] 04/26/2017 12:00:00 AM EST [facility] (Ammir [facility] Physician) Name Value Range Interpretation Description Data Sup porting Code Source(s) Document(s ) Ferritin 93.3 Normal (applies to [facility] (Amm ir [Interpretat ng/mL non-numeric [facility] ion] in results) Physician) Blood ID Date Data Source [id number] 04/26/2017 12:00:00 AM EST [facility] (Ammir [facility] Physician) Name Value Range Interpretation Description Data Sup porting Code Source(s) Document(s ) WBC 6.2 Normal (applies to [facility] 10(3)/uL non-numeric (Ammir results) [facility] Physician) RBC 4.7 Normal (applies to [facility] 10(6)/uL non-numeric (Ammir results) [facility] Physician) Hemoglobin 14.6 g/dL Normal (applies to [facility] [Mass/volume] non-numeric (Ammir in Mixed results) [place] venous blood Physician) by Oximetry Hematocrit 43.1 % Normal (applies to [facility] [Pure volume non-numeric (Ammir fraction] of results) [facility] Blood by Physician) Automated count MCV 92.7 fL Normal (applies to [facility] non-numeric (Ammir results) [facility] Physician) MCH 31 pg Normal (applies to [facility] non-numeric (Ammir results) [facility] Physician) MCHC 34 g/dL Normal (applies to [facility] non-numeric (Ammir results) [facility] Physician) RDWSD 43.5 fL Normal (applies to [facility] non-numeric (Ammir results) [facility] Physician) RDWCV 12.8 % Normal (applies to [facility] non-numeric (Ammir results) [facility] Physician) PLT 311 Normal (applies to [facility] 10(3)/uL non-numeric (Ammir results) [facility] Physician) MPV 11.2 fL Normal (applies to [facility] non-numeric (Ammir results) [facility] Physician) NE# 3.53 Normal (applies to [facility] 10(3)/uL non-numeric (Ammir results) [facility] Physician) LY# 1.88 Normal (applies to [facility] 10(3)/uL non-numeric (Ammir results) [facility] Physician) MO# 0.66 Normal (applies to [facility] 10(3)/uL non-numeric (Ammir results) [facility] Physician) EO# 0.06 Normal (applies to [facility] 10(3)/uL non-numeric (Ammir results) [facility] Physician) IG# 0.02 Normal (applies to [facility] 10(3)/uL non-numeric (Ammir results) [facility] Physician) NE% 57.00 % Normal (applies to [facility] non-numeric (Ammir results) [facility] Physician) LY% 30 % Normal (applies to [facility] non-numeric (Ammir results) [facility] Physician) MO% 10.7 % Normal (applies to [facility] non-numeric (Ammir results) [facility] Physician) EO% 1.0 % Normal (applies to [facility] non-numeric (Ammir results) [facility] Physician) BA% 0.6 % Normal (applies to [facility] non-numeric (Ammir results) [facility] Physician) IG% 0.30 % Normal (applies to [facility] non-numeric (Ammir results) [facility] Physician) ID Date Data Source [id number] 04/26/2017 12:00:00 AM EST [facility] (Ammir [facility] Physician) Name Value Range Interpretation Description Data Sup porting Code Source(s) Document(s ) IRON, TOTAL 99 ug/dL Normal (applies [facility] to non-numeric (Ammir results) [facility] Physician) Transferrin 312 mg/dL Normal (applies [facility] [Mass/time] in to non-numeric (Ammir 24 hour Urine results) [facility] Physician) TIBC 437.5 Normal (applies [facility] ug/dL to non-numeric (Ammir results) [facility] Physician) UIBC 338.5 Normal (applies [facility] ug/dL to non-numeric (Ammir results) [facility] Physician) %SATURATION 22.6 % Normal (applies [facility] to non-numeric (Ammir results) [facility] Physician) ID Date Data Source [id number] 03/29/2017 12:00:00 AM EST [facility] (Ammir [facility] Physician) Name Value Range Interpretation Description Data Sup porting Code Source(s) Document(s ) Cholesterol 220 Above high normal [facility] [Moles/volume] mg/dL (Ammir in Pericardial [facility] fluid Physician) LDL CALCULATION 118.2 Normal (applies [facility] mg/dL to non-numeric (Ammir results) [facility] Physician) CHOL/HDL RATIO 2.68 Normal (applies [facility] ratio to non-numeric (Ammir results) [facility] Physician) HDL CHOLESTEROL 82 mg/dL Above high normal [facility] (Ammir [facility] Physician) VLDL CALCULATION 19.8 Normal (applies [facility] mg/dl to non-numeric (Ammir results) [facility] Physician) TRIGLYCERIDES 99 mg/dL Normal (applies [facility] to non-numeric (Ammir results) [facility] Physician) ID Date Data Source [id number] 03/29/2017 12:00:00 AM EST [facility] (Ammir [facility] Physician) Name Value Range Interpretation Description Data Sup porting Code Source(s) Document(s ) GLUCOSE 77 mg/dL Normal (applies [facility] NONFASTING,SERUM to non-numeric (Ammir results) [facility] Physician) SODIUM, SERUM 141 Normal (applies [facility] mEq/L to non-numeric (Ammir results) [facility] Physician) POTASSIUM, SERUM 5.0 Normal (applies [facility] mEq/L to non-numeric (Ammir results) [facility]) CHLORIDE, SERUM 107 Normal (applies [facility] mEq/L to non-numeric (Ammir results) [facility]) Carbon dioxide 26 mEq/L Normal (applies [facility] [VFr/PPres] in to non-numeric (Ammir Gas delivery results) [facility] system Physician) Anion gap in 13 mEq/L Normal (applies [facility] Body fluid to non-numeric (Ammir results) [facility]) BLOOD UREA 13 mg/dL Normal (applies [facility] NITROGEN to non-numeric (Ammir results) [facility]) CREATININE, 0.90 Above high normal [facility] SERUM mg/dL (Ammir [facility]) BUN/CREATININE 14.44 Normal (applies [facility] RATIO to non-numeric (Ammir results) [facility]) CALCIUM, SERUM 10.1 Normal (applies [facility] mg/dL to non-numeric (Ammir results) [facility]) TOTAL PROTEIN 7.5 g/dL Normal (applies [facility] to non-numeric (Ammir results) [facility]) Microalbumin 4.7 g/dL Normal (applies [facility] [Mass/time] in to non-numeric (Ammir Urine collected results) [facility] for unspecified Physician) duration Globulin 2.8 gldl Normal (applies [facility] [Mass/time] in to non-numeric (Ammir 24 hour Urine results) [facility]) A/G RATIO 1.68 Normal (applies [facility] g/dl to non-numeric (Ammir results) [facility]) BILIRUBIN, TOTAL 1.0 Normal (applies [facility] mg/dL to non-numeric (Ammir results) [facility]) ALKALINE 86 U/L Normal (applies [facility] PHOSPHATASE, ALP to non-numeric (Ammir results) [facility]) ALT (SGPT) 25 U/L Normal (applies [facility] to non-numeric (Ammir results) [facility] Phys[facility]) AST 29 U/L Normal (applies [facility] to non-numeric (Ammir results) [facility] Phys[facility]) EGFR NON AFR 63 Above high normal [facility] SOMALI mL/min/1 (Ammir .73m2 [facility]) EGFR AFR 77 Above high normal [facility] SOMALI mL/min/1 (Ammir .73m2 [facility]) ID Date Data Source [id number] 03/29/2017 12:00:00 AM EST [facility] ([facility]mmir [facility]) Name Value Range Interpretation Description Data Sup porting Code Source(s) Document(s ) FOLATE SERUM 12.3 Above high normal [facility] (A mmir ng/mL [facility]) VITAMIN B12 1046 Above high normal [facility] (Am maria guadalupe pg/mL [facility]) ID Date Data Source [id number] 03/29/2017 12:00:00 AM EST [facility] ([facility]mmir [facility]) Name Value Range Interpretation Description Data Sup porting Code Source(s) Document(s ) WBC 7.2 Normal (applies to [facility] 10(3)/uL non-numeric (Ammir results) [facility]) RBC 4.9 Normal (applies to [facility] 10(6)/uL non-numeric (Ammir results) [facility]) Hemoglobin 15.3 g/dL Normal (applies to [facility] [Mass/volume] non-numeric (Ammir in Mixed results) [facility] venous blood Physician) by Oximetry Hematocrit 44.5 % Normal (applies to [facility] [Pure volume non-numeric (Ammir fraction] of results) [facility] Blood by Physician) Automated count MCV 91.4 fL Normal (applies to [facility] non-numeric (Ammir results) [facility] Phys[facility]) MCH 31 pg Normal (applies to [facility] non-numeric (Ammir results) [facility] Phys[facility]) MCHC 34 g/dL Normal (applies to [facility] non-numeric (Ammir results) [facility] Phys[facility]) RDWSD 42.2 fL Normal (applies to [facility] non-numeric (Ammir results) [facility] Phys[facility]) RDWCV 12.8 % Normal (applies to [facility] non-numeric (Ammir results) [facility] Phys[facility]) PLT 227 Normal (applies to [facility] 10(3)/uL non-numeric (Ammir results) [facility]) MPV 11.6 fL Normal (applies to [facility] non-numeric (Ammir results) [facility] Phys[facility]) NE# 3.74 Normal (applies to [facility] 10(3)/uL non-numeric (Ammir results) [facility]) LY# 2.68 Normal (applies to [facility] 10(3)/uL non-numeric (Ammir results) [facility]) MO# 0.66 Normal (applies to [facility] 10(3)/uL non-numeric (Ammir results) [facility]) EO# 0.05 Normal (applies to [facility] 10(3)/uL non-numeric (Ammir results) [facility] Phys[facility]) IG# 0.01 Normal (applies to [facility] 10(3)/uL non-numeric (Ammir results) [facility] Phys[facility]) NE% 52.20 % Normal (applies to [facility] non-numeric (Ammir results) [facility] Phys[facility]) LY% 37 % Normal (applies to [facility] non-numeric (Ammir results) [facility] Phys[facility]) MO% 9.2 % Normal (applies to [facility] non-numeric (Ammir results) [facility] Phys[facility]) EO% 0.7 % Normal (applies to [facility] non-numeric (Ammir results) [facility] Physician) BA% 0.4 % Normal (applies to [facility] non-numeric (Ammir results) [facility] Phys[facility]) IG% 0.10 % Normal (applies to [facility] non-numeric (Ammir results) [facility]) ID Date Data Source [id number] 03/29/2017 12:00:00 AM EST [facility] ([facility]mmir [facility]) Name Value Range Interpretation Description Data Sup porting Code Source(s) Document(s ) T4 FREE, 1.66 Normal (applies to [facility] THYROXINE ng/dL non-numeric (Ammir results) [facility]) TSH,3RD 2.69 Normal (applies to [facility] GENERATION uIU/mL non-numeric (Ammir results) [facility] Phys[facility]) ID Date Data Source [id number] 03/29/2017 12:00:00 AM EST [facility] ([facility]mmir [facility]) Name Value Range Interpretation Description Data Sup porting Code Source(s) Document(s ) Cholesterol 220 Above high normal [facility] [Moles/volume] mg/dL (Ammir in Pericardial [facility] fluid Physician) LDL CALCULATION 118.2 Normal (applies [facility] mg/dL to non-numeric (Ammir results) [facility]) CHOL/HDL RATIO 2.68 Normal (applies [facility] ratio to non-numeric (Ammir results) [facility]) HDL CHOLESTEROL 82 mg/dL Above high normal [facility] (Ammir [facility]) VLDL CALCULATION 19.8 Normal (applies [facility] mg/dl to non-numeric (Ammir results) [facility]) TRIGLYCERIDES 99 mg/dL Normal (applies [facility] to non-numeric (Ammir results) [facility]) ID Date Data Source [id number] 03/29/2017 12:00:00 AM EST [facility] ([facility]mmir [facility]) Name Value Range Interpretation Description Data Sup porting Code Source(s) Document(s ) GLUCOSE 77 mg/dL Normal (applies [facility] NONFASTING,SERUM to non-numeric (Ammir results) [facility]) SODIUM, SERUM 141 Normal (applies [facility] mEq/L to non-numeric (Ammir results) [facility]) POTASSIUM, SERUM 5.0 Normal (applies [facility] mEq/L to non-numeric (Ammir results) [facility]) CHLORIDE, SERUM 107 Normal (applies [facility] mEq/L to non-numeric (Ammir results) [facility]) Carbon dioxide 26 mEq/L Normal (applies [facility] [VFr/PPres] in to non-numeric (Ammir Gas delivery results) [facility] system Physician) Anion gap in 13 mEq/L Normal (applies [facility] Body fluid to non-numeric (Ammir results) [facility]) BLOOD UREA 13 mg/dL Normal (applies [facility] NITROGEN to non-numeric (Ammir results) [facility]) CREATININE, 0.90 Above high normal [facility] SERUM mg/dL (Ammir [facility]) BUN/CREATININE 14.44 Normal (applies [facility] RATIO to non-numeric (Ammir results) [facility]) CALCIUM, SERUM 10.1 Normal (applies [facility] mg/dL to non-numeric (Ammir results) [facility] Phys[facility]) TOTAL PROTEIN 7.5 g/dL Normal (applies [facility] to non-numeric (Ammir results) [facility]) Microalbumin 4.7 g/dL Normal (applies [facility] [Mass/time] in to non-numeric (Ammir Urine collected results) [facility] for unspecified Physician) duration Globulin 2.8 gldl Normal (applies [facility] [Mass/time] in to non-numeric (Ammir 24 hour Urine results) [facility]) A/G RATIO 1.68 Normal (applies [facility] g/dl to non-numeric (Ammir results) [facility]) BILIRUBIN, TOTAL 1.0 Normal (applies [facility] mg/dL to non-numeric (Ammir results) [facility]) ALKALINE 86 U/L Normal (applies [facility] PHOSPHATASE, ALP to non-numeric (Ammir results) [facility]) ALT (SGPT) 25 U/L Normal (applies [facility] to non-numeric (Ammir results) [facility] Phys[facility]) AST 29 U/L Normal (applies [facility] to non-numeric (Ammir results) [facility]) EGFR NON AFR 63 Above high normal [facility] SOMALI mL/min/1 (Ammir .73m2 [facility]) EGFR AFR 77 Above high normal [facility] SOMALI mL/min/1 (Ammir .73m2 [facility]) ID Date Data Source [id number] 03/29/2017 12:00:00 AM EST [facility] (Ammir [facility]) Name Value Range Interpretation Description Data Sup porting Code Source(s) Document(s ) FOLATE SERUM 12.3 Above high normal [facility] (A mmir ng/mL [facility]) VITAMIN B12 1046 Above high normal [facility] (Am maria guadalupe pg/mL [facility]) ID Date Data Source [id number] 03/29/2017 12:00:00 AM EST [facility] ([facility]mmir [facility]) Name Value Range Interpretation Description Data Sup porting Code Source(s) Document(s ) WBC 7.2 Normal (applies to [facility] 10(3)/uL non-numeric (Ammir results) [facility]) RBC 4.9 Normal (applies to [facility] 10(6)/uL non-numeric (Ammir results) [facility]) Hemoglobin 15.3 g/dL Normal (applies to [facility] [Mass/volume] non-numeric (Ammir in Mixed results) [facility] venous blood Physician) by Oximetry Hematocrit 44.5 % Normal (applies to [facility] [Pure volume non-numeric (Ammir fraction] of results) [facility] Blood by Physician) Automated count MCV 91.4 fL Normal (applies to [facility] non-numeric (Ammir results) [facility] Phys[facility]) MCH 31 pg Normal (applies to [facility] non-numeric (Ammir results) [facility]) MCHC 34 g/dL Normal (applies to [facility] non-numeric (Ammir results) [facility] Phys[facility]) RDWSD 42.2 fL Normal (applies to [facility] non-numeric (Ammir results) [facility] Phys[facility]) RDWCV 12.8 % Normal (applies to [facility] non-numeric (Ammir results) [facility] Physician) PLT 227 Normal (applies to [facility] 10(3)/uL non-numeric (Ammir results) [facility]) MPV 11.6 fL Normal (applies to [facility] non-numeric (Ammir results) [facility]) NE# 3.74 Normal (applies to [facility] 10(3)/uL non-numeric (Ammir results) [facility]) LY# 2.68 Normal (applies to [facility] 10(3)/uL non-numeric (Ammir results) [facility]) MO# 0.66 Normal (applies to [facility] 10(3)/uL non-numeric (Ammir results) [facility]) EO# 0.05 Normal (applies to [facility] 10(3)/uL non-numeric (Ammir results) [facility] Phys[facility]) IG# 0.01 Normal (applies to [facility] 10(3)/uL non-numeric (Ammir results) [facility] Phys[facility]) NE% 52.20 % Normal (applies to [facility] non-numeric (Ammir results) [facility] Physician) LY% 37 % Normal (applies to [facility] non-numeric (Ammir results) [facility] Physician) MO% 9.2 % Normal (applies to [facility] non-numeric (Ammir results) [facility] Phys[facility]) EO% 0.7 % Normal (applies to [facility] non-numeric (Ammir results) [facility] Physician) BA% 0.4 % Normal (applies to [facility] non-numeric (Ammir results) [facility] Physician) IG% 0.10 % Normal (applies to [facility] non-numeric (Ammir results) [facility]) ID Date Data Source [id number] 03/29/2017 12:00:00 AM EST [facility] (Ammir [facility]) Name Value Range Interpretation Description Data Sup porting Code Source(s) Document(s ) T4 FREE, 1.66 Normal (applies to [facility] THYROXINE ng/dL non-numeric (Ammir results) [facility]) TSH,3RD 2.69 Normal (applies to [facility] GENERATION uIU/mL non-numeric (Ammir results) [facility]) ID Date Data Source [id number] 03/29/2017 12:00:00 AM EST [facility] (Ammir [facility]) Name Value Range Interpretation Description Data Sup porting Code Source(s) Document(s ) Cholesterol 220 Above high normal [facility] [Moles/volume] mg/dL (Ammir in Pericardial [facility] fluid Physician) LDL CALCULATION 118.2 Normal (applies [facility] mg/dL to non-numeric (Ammir results) [facility]) CHOL/HDL RATIO 2.68 Normal (applies [facility] ratio to non-numeric (Ammir results) [facility]) HDL CHOLESTEROL 82 mg/dL Above high normal [facility] (Ammir [facility]) VLDL CALCULATION 19.8 Normal (applies [facility] mg/dl to non-numeric (Ammir results) [facility]) TRIGLYCERIDES 99 mg/dL Normal (applies [facility] to non-numeric (Ammir results) [facility]) ID Date Data Source [id number] 03/29/2017 12:00:00 AM EST [facility] (Ammir [facility]) Name Value Range Interpretation Description Data Sup porting Code Source(s) Document(s ) GLUCOSE 77 mg/dL Normal (applies [facility] NONFASTING,SERUM to non-numeric (Ammir results) [facility]) SODIUM, SERUM 141 Normal (applies [facility] mEq/L to non-numeric (Ammir results) [facility]) POTASSIUM, SERUM 5.0 Normal (applies [facility] mEq/L to non-numeric (Ammir results) [facility] Physician) CHLORIDE, SERUM 107 Normal (applies [facility] mEq/L to non-numeric (Ammir results) [facility]) Carbon dioxide 26 mEq/L Normal (applies [facility] [VFr/PPres] in to non-numeric (Ammir Gas delivery results) [facility] system Physician) Anion gap in 13 mEq/L Normal (applies [facility] Body fluid to non-numeric (Ammir results) [facility]) BLOOD UREA 13 mg/dL Normal (applies [facility] NITROGEN to non-numeric (Ammir results) [facility]) CREATININE, 0.90 Above high normal [facility] SERUM mg/dL (Ammir [facility]) BUN/CREATININE 14.44 Normal (applies [facility] RATIO to non-numeric (Ammir results) [facility]) CALCIUM, SERUM 10.1 Normal (applies [facility] mg/dL to non-numeric (Ammir results) [facility]) TOTAL PROTEIN 7.5 g/dL Normal (applies [facility] to non-numeric (Ammir results) [facility]) Microalbumin 4.7 g/dL Normal (applies [facility] [Mass/time] in to non-numeric (Ammir Urine collected results) [facility] for unspecified Physician) duration Globulin 2.8 gldl Normal (applies [facility] [Mass/time] in to non-numeric (Ammir 24 hour Urine results) [facility]) A/G RATIO 1.68 Normal (applies [facility] g/dl to non-numeric (Ammir results) [facility]) BILIRUBIN, TOTAL 1.0 Normal (applies [facility] mg/dL to non-numeric (Ammir results) [facility] Physician) ALKALINE 86 U/L Normal (applies [facility] PHOSPHATASE, ALP to non-numeric (Ammir results) [facility] Phys[facility]) ALT (SGPT) 25 U/L Normal (applies [facility] to non-numeric (Ammir results) [facility] Physician) AST 29 U/L Normal (applies [facility] to non-numeric (Ammir results) [facility] Phys[facility]) EGFR NON AFR 63 Above high normal [facility] SOMALI mL/min/1 (Ammir .73m2 [facility]) EGFR AFR 77 Above high normal [facility] SOMALI mL/min/1 (Ammir .73m2 [facility]) ID Date Data Source [id number] 03/29/2017 12:00:00 AM EST [facility] (Ammir [facility]) Name Value Range Interpretation Description Data Sup porting Code Source(s) Document(s ) FOLATE SERUM 12.3 Above high normal [facility] (A mmir ng/mL [facility]) VITAMIN B12 1046 Above high normal [facility] (Am maria guadalupe pg/mL [facility]) ID Date Data Source [id number] 03/29/2017 12:00:00 AM EST [facility] (Ammir [facility]) Name Value Range Interpretation Description Data Sup porting Code Source(s) Document(s ) WBC 7.2 Normal (applies to [facility] 10(3)/uL non-numeric (Ammir results) [facility]) RBC 4.9 Normal (applies to [facility] 10(6)/uL non-numeric (Ammir results) [facility] Phys[facility]) Hemoglobin 15.3 g/dL Normal (applies to [facility] [Mass/volume] non-numeric (Ammir in Mixed results) [facility] venous blood Physician) by Oximetry Hematocrit 44.5 % Normal (applies to [facility] [Pure volume non-numeric (Ammir fraction] of results) [facility] Blood by Physician) Automated count MCV 91.4 fL Normal (applies to [facility] non-numeric (Ammir results) [facility] Physician) MCH 31 pg Normal (applies to [facility] non-numeric (Ammir results) [facility] Physician) MCHC 34 g/dL Normal (applies to [facility] non-numeric (Ammir results) [facility] Physician) RDWSD 42.2 fL Normal (applies to [facility] non-numeric (Ammir results) [facility] Physician) RDWCV 12.8 % Normal (applies to [facility] non-numeric (Ammir results) [facility] Physician) PLT 227 Normal (applies to [facility] 10(3)/uL non-numeric (Ammir results) [facility] Physician) MPV 11.6 fL Normal (applies to [facility] non-numeric (Ammir results) [facility] Physician) NE# 3.74 Normal (applies to [facility] 10(3)/uL non-numeric (Ammir results) [facility] Physician) LY# 2.68 Normal (applies to [facility] 10(3)/uL non-numeric (Ammir results) [facility] Phys[facility]) MO# 0.66 Normal (applies to [facility] 10(3)/uL non-numeric (Ammir results) [facility]) EO# 0.05 Normal (applies to [facility] 10(3)/uL non-numeric (Ammir results) [facility] Physician) IG# 0.01 Normal (applies to [facility] 10(3)/uL non-numeric (Ammir results) [facility] Physician) NE% 52.20 % Normal (applies to [facility] non-numeric (Ammir results) [facility] Physician) LY% 37 % Normal (applies to [facility] non-numeric (Ammir results) [facility] Physician) MO% 9.2 % Normal (applies to [facility] non-numeric (Ammir results) [facility] Physician) EO% 0.7 % Normal (applies to [facility] non-numeric (Ammir results) [facility] Physician) BA% 0.4 % Normal (applies to [facility] non-numeric (Ammir results) [facility] Physician) IG% 0.10 % Normal (applies to [facility] non-numeric (Ammir results) [facility]) ID Date Data Source [id number] 03/29/2017 12:00:00 AM EST [facility] (Ammir [facility]) Name Value Range Interpretation Description Data Sup porting Code Source(s) Document(s ) T4 FREE, 1.66 Normal (applies to [facility] THYROXINE ng/dL non-numeric (Ammir results) [facility]) TSH,3RD 2.69 Normal (applies to [facility] GENERATION uIU/mL non-numeric (Ammir results) [facility] Phys[facility]) ID Date Data Source [id number] 03/29/2017 12:00:00 AM EST [facility] (Ammir [facility]) Name Value Range Interpretation Description Data Sup porting Code Source(s) Document(s ) Cholesterol 220 Above high normal [facility] [Moles/volume] mg/dL (Ammir in Pericardial [facility] fluid Physician) LDL CALCULATION 118.2 Normal (applies [facility] mg/dL to non-numeric (Ammir results) [facility] Physician) CHOL/HDL RATIO 2.68 Normal (applies [facility] ratio to non-numeric (Ammir results) [facility] Physician) HDL CHOLESTEROL 82 mg/dL Above high normal [facility] (Ammir [facility] Phys[facility]) VLDL CALCULATION 19.8 Normal (applies [facility] mg/dl to non-numeric (Ammir results) [facility] Physician) TRIGLYCERIDES 99 mg/dL Normal (applies [facility] to non-numeric (Ammir results) [facility] Phys[facility]) ID Date Data Source [id number] 03/29/2017 12:00:00 AM EST [facility] (Ammir [facility]) Name Value Range Interpretation Description Data Sup porting Code Source(s) Document(s ) GLUCOSE 77 mg/dL Normal (applies [facility] NONFASTING,SERUM to non-numeric (Ammir results) [facility] Physician) SODIUM, SERUM 141 Normal (applies [facility] mEq/L to non-numeric (Ammir results) [facility] Physician) POTASSIUM, SERUM 5.0 Normal (applies [facility] mEq/L to non-numeric (Ammir results) [facility] Physician) CHLORIDE, SERUM 107 Normal (applies [facility] mEq/L to non-numeric (Ammir results) [facility] Phys[facility]) Carbon dioxide 26 mEq/L Normal (applies [facility] [VFr/PPres] in to non-numeric (Ammir Gas delivery results) [facility] system Physician) Anion gap in 13 mEq/L Normal (applies [facility] Body fluid to non-numeric (Ammir results) [facility] Physician) BLOOD UREA 13 mg/dL Normal (applies [facility] NITROGEN to non-numeric (Ammir results) [facility] Physician) CREATININE, 0.90 Above high normal [facility] SERUM mg/dL (Ammir [facility]) BUN/CREATININE 14.44 Normal (applies [facility] RATIO to non-numeric (Ammir results) [facility] Physician) CALCIUM, SERUM 10.1 Normal (applies [facility] mg/dL to non-numeric (Ammir results) [facility] Physician) TOTAL PROTEIN 7.5 g/dL Normal (applies [facility] to non-numeric (Ammir results) [facility] Phys[facility]) Microalbumin 4.7 g/dL Normal (applies [facility] [Mass/time] in to non-numeric (Ammir Urine collected results) [facility] for unspecified Physician) duration Globulin 2.8 gldl Normal (applies [facility] [Mass/time] in to non-numeric (Ammir 24 hour Urine results) [facility] Physician) A/G RATIO 1.68 Normal (applies [facility] g/dl to non-numeric (Ammir results) [facility] Physician) BILIRUBIN, TOTAL 1.0 Normal (applies [facility] mg/dL to non-numeric (Ammir results) [facility] Physician) ALKALINE 86 U/L Normal (applies [facility] PHOSPHATASE, ALP to non-numeric (Ammir results) [facility] Physician) ALT (SGPT) 25 U/L Normal (applies [facility] to non-numeric (Ammir results) [facility] Physician) AST 29 U/L Normal (applies [facility] to non-numeric (Ammir results) [facility] Physician) EGFR NON AFR 63 Above high normal [facility] SOMALI mL/min/1 (Ammir .73m2 [facility]) EGFR AFR 77 Above high normal [facility] SOMALI mL/min/1 (Ammir .73m2 [facility]) ID Date Data Source [id number] 03/29/2017 12:00:00 AM EST [facility] (Ammir [facility]) Name Value Range Interpretation Description Data Sup porting Code Source(s) Document(s ) FOLATE SERUM 12.3 Above high normal [facility] (A mmir ng/mL [facility]) VITAMIN B12 1046 Above high normal [facility] (Am maria guadalupe pg/mL [facility]) ID Date Data Source [id number] 03/29/2017 12:00:00 AM EST [facility] (Ammir [facility]) Name Value Range Interpretation Description Data Sup porting Code Source(s) Document(s ) WBC 7.2 Normal (applies to [facility] 10(3)/uL non-numeric (Ammir results) [facility]) RBC 4.9 Normal (applies to [facility] 10(6)/uL non-numeric (Ammir results) [facility] Physician) Hemoglobin 15.3 g/dL Normal (applies to [facility] [Mass/volume] non-numeric (Ammir in Mixed results) [facility] venous blood Physician) by Oximetry Hematocrit 44.5 % Normal (applies to [facility] [Pure volume non-numeric (Ammir fraction] of results) [facility] Blood by Physician) Automated count MCV 91.4 fL Normal (applies to [facility] non-numeric (Ammir results) [facility] Physician) MCH 31 pg Normal (applies to [facility] non-numeric (Ammir results) [facility] Physician) MCHC 34 g/dL Normal (applies to [facility] non-numeric (Ammir results) [facility] Physician) RDWSD 42.2 fL Normal (applies to [facility] non-numeric (Ammir results) [facility] Physician) RDWCV 12.8 % Normal (applies to [facility] non-numeric (Ammir results) [facility] Physician) PLT 227 Normal (applies to [facility] 10(3)/uL non-numeric (Ammir results) [facility] Physician) MPV 11.6 fL Normal (applies to [facility] non-numeric (Ammir results) [facility] Physician) NE# 3.74 Normal (applies to [facility] 10(3)/uL non-numeric (Ammir results) [facility] Physician) LY# 2.68 Normal (applies to [facility] 10(3)/uL non-numeric (Ammir results) [facility] Physician) MO# 0.66 Normal (applies to [facility] 10(3)/uL non-numeric (Ammir results) [facility] Physician) EO# 0.05 Normal (applies to [facility] 10(3)/uL non-numeric (Ammir results) [facility] Physician) IG# 0.01 Normal (applies to [facility] 10(3)/uL non-numeric (Ammir results) [facility] Physician) NE% 52.20 % Normal (applies to [facility] non-numeric (Ammir results) [facility] Physician) LY% 37 % Normal (applies to [facility] non-numeric (Ammir results) [facility] Physician) MO% 9.2 % Normal (applies to [facility] non-numeric (Ammir results) [facility] Physician) EO% 0.7 % Normal (applies to [facility] non-numeric (Ammir results) [facility] Physician) BA% 0.4 % Normal (applies to [facility] non-numeric (Ammir results) [facility] Physician) IG% 0.10 % Normal (applies to [facility] non-numeric (Ammir results) [facility] Phys[facility]) ID Date Data Source [id number] 03/29/2017 12:00:00 AM EST [facility] (Ammir [facility]) Name Value Range Interpretation Description Data Sup porting Code Source(s) Document(s ) T4 FREE, 1.66 Normal (applies to [facility] THYROXINE ng/dL non-numeric (Ammir results) [facility] Physician) TSH,3RD 2.69 Normal (applies to [facility] GENERATION uIU/mL non-numeric (Ammir results) [facility] Physician) ID Date Data Source [id number] 11/30/2016 12:00:00 AM EDT [facility] (Ammir [facility]) Name Value Range Interpretation Description Data Sup porting Code Source(s) Document(s ) Cholesterol 223 Above high normal [facility] [Moles/volume] mg/dL (Ammir in Pericardial [facility] fluid Physician) LDL CALCULATION 115.6 Normal (applies [facility] mg/dL to non-numeric (Ammir results) [facility] Physician) CHOL/HDL RATIO 2.53 Normal (applies [facility] ratio to non-numeric (Ammir results) [facility] Physician) HDL CHOLESTEROL 88 mg/dL Above high normal [facility] (Ammir [facility] Physician) VLDL CALCULATION 19.4 Normal (applies [facility] mg/dl to non-numeric (Ammir results) [facility] Physician) TRIGLYCERIDES 97 mg/dL Normal (applies [facility] to non-numeric (Ammir results) [facility] Phys[facility]) ID Date Data Source [id number] 11/30/2016 12:00:00 AM EDT [facility] (Ammir [facility]) Name Value Range Interpretation Description Data Sup porting Code Source(s) Document(s ) GLUCOSE 67 mg/dL Normal (applies [facility] NONFASTING,SERUM to non-numeric (Ammir results) [facility] Physician) SODIUM, SERUM 141 Normal (applies [facility] mEq/L to non-numeric (Ammir results) [facility] Physician) POTASSIUM, SERUM 4.7 Normal (applies [facility] mEq/L to non-numeric (Ammir results) [facility] Physician) CHLORIDE, SERUM 108 Normal (applies [facility] mEq/L to non-numeric (Ammir results) [facility] Physician) Carbon dioxide 25 mEq/L Normal (applies [facility] [VFr/PPres] in to non-numeric (Ammir Gas delivery results) [facility] system Physician) Anion gap in 12.7 Normal (applies [facility] Body fluid mEq/L to non-numeric (Ammir results) [facility] Physician) BLOOD UREA 14 mg/dL Normal (applies [facility] NITROGEN to non-numeric (Ammir results) [facility] Physician) CREATININE, 0.90 Above high normal [facility] SERUM mg/dL (Ammir [facility] Physician) BUN/CREATININE 15.56 Normal (applies [facility] RATIO to non-numeric (Ammir results) [facility] Phys[facility]) CALCIUM, SERUM 9.9 Normal (applies [facility] mg/dL to non-numeric (Ammir results) [facility] Physician) TOTAL PROTEIN 7.3 g/dL Normal (applies [facility] to non-numeric (Ammir results) [facility] Physician) Microalbumin 4.3 g/dL Normal (applies [facility] [Mass/time] in to non-numeric (Ammir Urine collected results) [place] for unspecified Physician) duration Globulin 3.0 gldl Normal (applies [facility] [Mass/time] in to non-numeric (Ammir 24 hour Urine results) [facility] Physician) A/G RATIO 1.43 Normal (applies [facility] g/dl to non-numeric (Ammir results) [facility] Physician) BILIRUBIN, TOTAL 0.7 Normal (applies [facility] mg/dL to non-numeric (Ammir results) [facility] Physician) ALKALINE 77 U/L Normal (applies [facility] PHOSPHATASE, ALP to non-numeric (Ammir results) [facility] Physician) ALT (SGPT) 15 U/L Normal (applies [facility] to non-numeric (Ammir results) [facility] Physician) AST 26 U/L Normal (applies [facility] to non-numeric (Ammir results) [facility] Physician) EGFR NON AFR 63 Above high normal [facility] SOMALI mL/min/1 (Ammir .73m2 [facility] Physician) EGFR AFR 77 Above high normal [facility] SOMALI mL/min/1 (Ammir .73m2 [facility] Physician) ID Date Data Source [id number] 11/30/2016 12:00:00 AM EDT [facility] (Ammir [facility] Phys[facility]) Name Value Range Interpretation Description Data Sup porting Code Source(s) Document(s ) WBC 6.9 Normal (applies to [facility] 10(3)/uL non-numeric (Ammir results) [facility] Physician) RBC 4.7 Normal (applies to [facility] 10(6)/uL non-numeric (Ammir results) [facility] Physician) Hemoglobin 14.6 g/dL Normal (applies to [facility] [Mass/volume] non-numeric (Ammir in Mixed results) [place] venous blood Physician) by Oximetry Hematocrit 43.8 % Normal (applies to [facility] [Pure volume non-numeric (Ammir fraction] of results) [place] Blood by Physician) Automated count MCV 93.4 fL Normal (applies to [facility] non-numeric (Ammir results) [facility] Physician) MCH 31 pg Normal (applies to [facility] non-numeric (Ammir results) [facility] Physician) MCHC 33 g/dL Normal (applies to [facility] non-numeric (Ammir results) [facility] Physician) PLT 221 Normal (applies to [facility] 10(3)/uL non-numeric (Ammir results) [facility] Physician) RDWSD 44.7 fL Normal (applies to [facility] non-numeric (Ammir results) [facility] Physician) RDWCV 13.1 % Normal (applies to [facility] non-numeric (Ammir results) [facility] Physician) MPV 12.1 fL Normal (applies to [facility] non-numeric (Ammir results) [facility] Physician) NE# 3.06 Normal (applies to [facility] 10(3)/uL non-numeric (Ammir results) [facility] Physician) LY# 2.79 Normal (applies to [facility] 10(3)/uL non-numeric (Ammir results) [facility] Physician) MO# 0.90 Normal (applies to [facility] 10(3)/uL non-numeric (Ammir results) [facility] Physician) EO# 0.07 Normal (applies to [facility] 10(3)/uL non-numeric (Ammir results) [facility] Physician) BA# 0.02 Normal (applies to [facility] 10(3)/uL non-numeric (Ammir results) [facility] Physician) IG# 0.02 Normal (applies to [facility] 10(3)/uL non-numeric (Ammir results) [facility] Physician) NE% 44.60 % Normal (applies to [facility] non-numeric (Ammir results) [facility] Physician) LY% 41 % Normal (applies to [facility] non-numeric (Ammir results) [facility] Physician) MO% 13.1 % Above high normal [facility] (Ammir [facility] Physician) EO% 1.0 % Normal (applies to [facility] non-numeric (Ammir results) [facility] Physician) BA% 0.3 % Normal (applies to [facility] non-numeric (Ammir results) [facility] Physician) IG% 0.30 % Normal (applies to [facility] non-numeric (Ammir results) [facility] Physician) ID Date Data Source [id number] 11/30/2016 12:00:00 AM EDT [facility] (Ammir [facility] Phys[facility]) Name Value Range Interpretation Description Data Sup porting Code Source(s) Document(s ) T4 FREE, 1.49 Normal (applies to [facility] THYROXINE ng/dL non-numeric (Ammir results) [facility] Physician) TSH,3RD 1.99 Normal (applies to [facility] GENERATION uIU/mL non-numeric (Ammir results) [facility] Physician) ID Date Data Source [id number] 11/30/2016 12:00:00 AM EDT [facility] (Ammir [facility] Phys[facility]) Name Value Range Interpretation Description Data Sup porting Code Source(s) Document(s ) FOLATE SERUM 17.1 Above high normal [facility] (A mmir ng/mL [facility] Physician) VITAMIN B12 1035 Above high normal [facility] (Am maria guadalupe pg/mL [facility] Physician) ID Date Data Source [id number] 11/30/2016 12:00:00 AM EDT [facility] (Ammir [facility] Phys[facility]) Name Value Range Interpretation Description Data Sup porting Code Source(s) Document(s ) VITAMIN D 53.1 Normal (applies to [facility] (Amm ir 1.25 pg/mL non-numeric [facility] results) Physician) ID Date Data Source [id number] 11/30/2016 12:00:00 AM EDT [facility] (Ammir [facility] Phys[facility]) Name Value Range Interpretation Description Data Sup porting Code Source(s) Document(s ) Cholesterol 223 Above high normal [facility] [Moles/volume] mg/dL (Ammir in Pericardial [place] fluid Physician) LDL CALCULATION 115.6 Normal (applies [facility] mg/dL to non-numeric (Ammir results) [facility] Physician) CHOL/HDL RATIO 2.53 Normal (applies [facility] ratio to non-numeric (Ammir results) [facility] Physician) HDL CHOLESTEROL 88 mg/dL Above high normal [facility] (Ammir [facility] Physician) VLDL CALCULATION 19.4 Normal (applies [facility] mg/dl to non-numeric (Ammir results) [facility] Physician) TRIGLYCERIDES 97 mg/dL Normal (applies [facility] to non-numeric (Ammir results) [facility] Physician) ID Date Data Source [id number] 11/30/2016 12:00:00 AM EDT [facility] (Ammir [facility] Phys[facility]) Name Value Range Interpretation Description Data Sup porting Code Source(s) Document(s ) GLUCOSE 67 mg/dL Normal (applies [facility] NONFASTING,SERUM to non-numeric (Ammir results) [facility] Physician) SODIUM, SERUM 141 Normal (applies [facility] mEq/L to non-numeric (Ammir results) [facility] Physician) POTASSIUM, SERUM 4.7 Normal (applies [facility] mEq/L to non-numeric (Ammir results) [facility] Physician) CHLORIDE, SERUM 108 Normal (applies [facility] mEq/L to non-numeric (Ammir results) [facility] Physician) Carbon dioxide 25 mEq/L Normal (applies [facility] [VFr/PPres] in to non-numeric (Ammir Gas delivery results) [facility] system Physician) Anion gap in 12.7 Normal (applies [facility] Body fluid mEq/L to non-numeric (Ammir results) [facility] Physician) BLOOD UREA 14 mg/dL Normal (applies [facility] NITROGEN to non-numeric (Ammir results) [facility] Physician) CREATININE, 0.90 Above high normal [facility] SERUM mg/dL (Ammir [facility] Physician) BUN/CREATININE 15.56 Normal (applies [facility] RATIO to non-numeric (Ammir results) [facility] Physician) CALCIUM, SERUM 9.9 Normal (applies [facility] mg/dL to non-numeric (Ammir results) [facility] Physician) TOTAL PROTEIN 7.3 g/dL Normal (applies [facility] to non-numeric (Ammir results) [facility] Physician) Microalbumin 4.3 g/dL Normal (applies [facility] [Mass/time] in to non-numeric (Ammir Urine collected results) [place] for unspecified Physician) duration Globulin 3.0 gldl Normal (applies [facility] [Mass/time] in to non-numeric (Ammir 24 hour Urine results) [facility] Physician) A/G RATIO 1.43 Normal (applies [facility] g/dl to non-numeric (Ammir results) [facility] Physician) BILIRUBIN, TOTAL 0.7 Normal (applies [facility] mg/dL to non-numeric (Ammir results) [facility] Physician) ALKALINE 77 U/L Normal (applies [facility] PHOSPHATASE, ALP to non-numeric (Ammir results) [facility] Physician) ALT (SGPT) 15 U/L Normal (applies [facility] to non-numeric (Ammir results) [facility] Physician) AST 26 U/L Normal (applies [facility] to non-numeric (Ammir results) [facility] Physician) EGFR NON AFR 63 Above high normal [facility] SOMALI mL/min/1 (Ammir .73m2 [facility] Physician) EGFR AFR 77 Above high normal [facility] SOMALI mL/min/1 (Ammir .73m2 [facility] Physician) ID Date Data Source [id number] 11/30/2016 12:00:00 AM EDT [facility] (Ammir [facility] Phys[facility]) Name Value Range Interpretation Description Data Sup porting Code Source(s) Document(s ) WBC 6.9 Normal (applies to [facility] 10(3)/uL non-numeric (Ammir results) [facility] Physician) RBC 4.7 Normal (applies to [facility] 10(6)/uL non-numeric (Ammir results) [facility] Physician) Hemoglobin 14.6 g/dL Normal (applies to [facility] [Mass/volume] non-numeric (Ammir in Mixed results) [place] venous blood Physician) by Oximetry Hematocrit 43.8 % Normal (applies to [facility] [Pure volume non-numeric (Ammir fraction] of results) [facility] Blood by Physician) Automated count MCV 93.4 fL Normal (applies to [facility] non-numeric (Ammir results) [facility] Physician) MCH 31 pg Normal (applies to [facility] non-numeric (Ammir results) [facility] Physician) MCHC 33 g/dL Normal (applies to [facility] non-numeric (Ammir results) [facility] Physician) PLT 221 Normal (applies to [facility] 10(3)/uL non-numeric (Ammir results) [facility] Physician) RDWSD 44.7 fL Normal (applies to [facility] non-numeric (Ammir results) [facility] Physician) RDWCV 13.1 % Normal (applies to [facility] non-numeric (Ammir results) [facility] Physician) MPV 12.1 fL Normal (applies to [facility] non-numeric (Ammir results) [facility] Physician) NE# 3.06 Normal (applies to [facility] 10(3)/uL non-numeric (Ammir results) [facility] Physician) LY# 2.79 Normal (applies to [facility] 10(3)/uL non-numeric (Ammir results) [facility] Physician) MO# 0.90 Normal (applies to [facility] 10(3)/uL non-numeric (Ammir results) [facility] Physician) EO# 0.07 Normal (applies to [facility] 10(3)/uL non-numeric (Ammir results) [facility] Physician) BA# 0.02 Normal (applies to [facility] 10(3)/uL non-numeric (Ammir results) [facility] Physician) IG# 0.02 Normal (applies to [facility] 10(3)/uL non-numeric (Ammir results) [facility] Physician) NE% 44.60 % Normal (applies to [facility] non-numeric (Ammir results) [facility] Physician) LY% 41 % Normal (applies to [facility] non-numeric (Ammir results) [facility] Physician) MO% 13.1 % Above high normal [facility] (Ammir [facility] Physician) EO% 1.0 % Normal (applies to [facility] non-numeric (Ammir results) [facility] Physician) BA% 0.3 % Normal (applies to [facility] non-numeric (Ammir results) [facility] Physician) IG% 0.30 % Normal (applies to [facility] non-numeric (Ammir results) [facility] Physician) ID Date Data Source [id number] 11/30/2016 12:00:00 AM EDT [facility] (Ammir [facility] Phys[facility]) Name Value Range Interpretation Description Data Sup porting Code Source(s) Document(s ) T4 FREE, 1.49 Normal (applies to [facility] THYROXINE ng/dL non-numeric (Ammir results) [place] Physician) TSH,3RD 1.99 Normal (applies to [facility] GENERATION uIU/mL non-numeric (Ammir results) [facility] Physician) ID Date Data Source [id number] 11/30/2016 12:00:00 AM EDT [facility] (Ammir [facility] Physician) Name Value Range Interpretation Description Data Sup porting Code Source(s) Document(s ) FOLATE SERUM 17.1 Above high normal [facility] (A mmir ng/mL [facility] Physician) VITAMIN B12 1035 Above high normal [facility] (Am maria guadalupe pg/mL [facility] Physician) ID Date Data Source [id number] 11/30/2016 12:00:00 AM EDT [facility] (Ammir [facility] Physician) Name Value Range Interpretation Description Data Sup porting Code Source(s) Document(s ) VITAMIN D 53.1 Normal (applies to [facility] (Amm ir 1.25 pg/mL non-numeric [facility] results) Physician) ID Date Data Source [id number] 11/30/2016 12:00:00 AM EDT [facility] (Ammir [facility] Physician) Name Value Range Interpretation Description Data Sup porting Code Source(s) Document(s ) Cholesterol 223 Above high normal [facility] [Moles/volume] mg/dL (Ammir in Pericardial [place] fluid Physician) LDL CALCULATION 115.6 Normal (applies [facility] mg/dL to non-numeric (Ammir results) [facility] Physician) CHOL/HDL RATIO 2.53 Normal (applies [facility] ratio to non-numeric (Ammir results) [facility] Physician) HDL CHOLESTEROL 88 mg/dL Above high normal [facility] (Ammir [facility] Physician) VLDL CALCULATION 19.4 Normal (applies [facility] mg/dl to non-numeric (Ammir results) [facility] Physician) TRIGLYCERIDES 97 mg/dL Normal (applies [facility] to non-numeric (Ammir results) [facility] Physician) ID Date Data Source [id number] 11/30/2016 12:00:00 AM EDT [facility] (Ammir [facility] Phys[facility]) Name Value Range Interpretation Description Data Sup porting Code Source(s) Document(s ) GLUCOSE 67 mg/dL Normal (applies [facility] NONFASTING,SERUM to non-numeric (Ammir results) [facility] Physician) SODIUM, SERUM 141 Normal (applies [facility] mEq/L to non-numeric (Ammir results) [facility] Physician) POTASSIUM, SERUM 4.7 Normal (applies [facility] mEq/L to non-numeric (Ammir results) [facility] Physician) CHLORIDE, SERUM 108 Normal (applies [facility] mEq/L to non-numeric (Ammir results) [facility] Physician) Carbon dioxide 25 mEq/L Normal (applies [facility] [VFr/PPres] in to non-numeric (Ammir Gas delivery results) [facility] system Physician) Anion gap in 12.7 Normal (applies [facility] Body fluid mEq/L to non-numeric (Ammir results) [facility] Physician) BLOOD UREA 14 mg/dL Normal (applies [facility] NITROGEN to non-numeric (Ammir results) [facility] Physician) CREATININE, 0.90 Above high normal [facility] SERUM mg/dL (Ammir [facility] Physician) BUN/CREATININE 15.56 Normal (applies [facility] RATIO to non-numeric (Ammir results) [facility] Physician) CALCIUM, SERUM 9.9 Normal (applies [facility] mg/dL to non-numeric (Ammir results) [facility] Physician) TOTAL PROTEIN 7.3 g/dL Normal (applies [facility] to non-numeric (Ammir results) [facility] Physician) Microalbumin 4.3 g/dL Normal (applies [facility] [Mass/time] in to non-numeric (Ammir Urine collected results) [place] for unspecified Physician) duration Globulin 3.0 gldl Normal (applies [facility] [Mass/time] in to non-numeric (Ammir 24 hour Urine results) [facility] Physician) A/G RATIO 1.43 Normal (applies [facility] g/dl to non-numeric (Ammir results) [facility] Physician) BILIRUBIN, TOTAL 0.7 Normal (applies [facility] mg/dL to non-numeric (Ammir results) [facility] Physician) ALKALINE 77 U/L Normal (applies [facility] PHOSPHATASE, ALP to non-numeric (Ammir results) [facility] Physician) ALT (SGPT) 15 U/L Normal (applies [facility] to non-numeric (Ammir results) [facility] Physician) AST 26 U/L Normal (applies [facility] to non-numeric (Ammir results) [facility] Physician) EGFR NON AFR 63 Above high normal [facility] SOMALI mL/min/1 (Ammir .73m2 [facility] Physician) EGFR AFR 77 Above high normal [facility] SOMALI mL/min/1 (Ammir .73m2 [facility] Physician) ID Date Data Source [id number] 11/30/2016 12:00:00 AM EDT [facility] (Ammir [facility] Physician) Name Value Range Interpretation Description Data Sup porting Code Source(s) Document(s ) WBC 6.9 Normal (applies to [facility] 10(3)/uL non-numeric (Ammir results) [facility] Physician) RBC 4.7 Normal (applies to [facility] 10(6)/uL non-numeric (Ammir results) [facility] Physician) Hemoglobin 14.6 g/dL Normal (applies to [facility] [Mass/volume] non-numeric (Ammir in Mixed results) [place] venous blood Physician) by Oximetry Hematocrit 43.8 % Normal (applies to [facility] [Pure volume non-numeric (Ammir fraction] of results) [place] Blood by Physician) Automated count MCV 93.4 fL Normal (applies to [facility] non-numeric (Ammir results) [facility] Physician) MCH 31 pg Normal (applies to [facility] non-numeric (Ammir results) [facility] Physician) MCHC 33 g/dL Normal (applies to [facility] non-numeric (Ammir results) [facility] Physician) PLT 221 Normal (applies to [facility] 10(3)/uL non-numeric (Ammir results) [facility] Physician) RDWSD 44.7 fL Normal (applies to [facility] non-numeric (Ammir results) [facility] Physician) RDWCV 13.1 % Normal (applies to [facility] non-numeric (Ammir results) [facility] Physician) MPV 12.1 fL Normal (applies to [facility] non-numeric (Ammir results) [facility] Physician) NE# 3.06 Normal (applies to [facility] 10(3)/uL non-numeric (Ammir results) [facility] Physician) LY# 2.79 Normal (applies to [facility] 10(3)/uL non-numeric (Ammir results) [facility] Physician) MO# 0.90 Normal (applies to [facility] 10(3)/uL non-numeric (Ammir results) [facility] Physician) EO# 0.07 Normal (applies to [facility] 10(3)/uL non-numeric (Ammir results) [facility] Physician) BA# 0.02 Normal (applies to [facility] 10(3)/uL non-numeric (Ammir results) [facility] Physician) IG# 0.02 Normal (applies to [facility] 10(3)/uL non-numeric (Ammir results) [facility] Physician) NE% 44.60 % Normal (applies to [facility] non-numeric (Ammir results) [facility] Physician) LY% 41 % Normal (applies to [facility] non-numeric (Ammir results) [facility] Physician) MO% 13.1 % Above high normal [facility] (Ammir [facility] Physician) EO% 1.0 % Normal (applies to [facility] non-numeric (Ammir results) [facility] Physician) BA% 0.3 % Normal (applies to [facility] non-numeric (Ammir results) [facility] Physician) IG% 0.30 % Normal (applies to [facility] non-numeric (Ammir results) [facility] Physician) ID Date Data Source [id number] 11/30/2016 12:00:00 AM EDT [facility] (Ammir [facility] Physician) Name Value Range Interpretation Description Data Sup porting Code Source(s) Document(s ) T4 FREE, 1.49 Normal (applies to [facility] THYROXINE ng/dL non-numeric (Ammir results) [facility] Physician) TSH,3RD 1.99 Normal (applies to [facility] GENERATION uIU/mL non-numeric (Ammir results) [facility] Physician) ID Date Data Source [id number] 11/30/2016 12:00:00 AM EDT [facility] (Ammir [facility] Physician) Name Value Range Interpretation Description Data Sup porting Code Source(s) Document(s ) FOLATE SERUM 17.1 Above high normal [facility] (A mmir ng/mL [facility] Physician) VITAMIN B12 1035 Above high normal [facility] (Am maria guadalupe pg/mL [facility] Physician) ID Date Data Source [id number] 11/30/2016 12:00:00 AM EDT [facility] (Ammir [facility] Physician) Name Value Range Interpretation Description Data Sup porting Code Source(s) Document(s ) VITAMIN D 53.1 Normal (applies to [facility] (Amm ir 1.25 pg/mL non-numeric [facility] results) Physician) ID Date Data Source [id number] 11/30/2016 12:00:00 AM EDT [facility] (Ammir [facility] Physician) Name Value Range Interpretation Description Data Sup porting Code Source(s) Document(s ) Cholesterol 223 Above high normal [facility] [Moles/volume] mg/dL (Ammir in Pericardial [place] fluid Physician) LDL CALCULATION 115.6 Normal (applies [facility] mg/dL to non-numeric (Ammir results) [facility] Physician) CHOL/HDL RATIO 2.53 Normal (applies [facility] ratio to non-numeric (Ammir results) [facility] Physician) HDL CHOLESTEROL 88 mg/dL Above high normal [facility] (Ammir [facility] Physician) VLDL CALCULATION 19.4 Normal (applies [facility] mg/dl to non-numeric (Ammir results) [facility] Physician) TRIGLYCERIDES 97 mg/dL Normal (applies [facility] to non-numeric (Ammir results) [facility] Physician) ID Date Data Source [id number] 11/30/2016 12:00:00 AM EDT [facility] (Ammir [facility] Physician) Name Value Range Interpretation Description Data Sup porting Code Source(s) Document(s ) GLUCOSE 67 mg/dL Normal (applies [facility] NONFASTING,SERUM to non-numeric (Ammir results) [facility] Physician) SODIUM, SERUM 141 Normal (applies [facility] mEq/L to non-numeric (Ammir results) [facility] Physician) POTASSIUM, SERUM 4.7 Normal (applies [facility] mEq/L to non-numeric (Ammir results) [facility] Physician) CHLORIDE, SERUM 108 Normal (applies [facility] mEq/L to non-numeric (Ammir results) [facility] Physician) Carbon dioxide 25 mEq/L Normal (applies [facility] [VFr/PPres] in to non-numeric (Ammir Gas delivery results) [facility] system Physician) Anion gap in 12.7 Normal (applies [facility] Body fluid mEq/L to non-numeric (Ammir results) [facility] Physician) BLOOD UREA 14 mg/dL Normal (applies [facility] NITROGEN to non-numeric (Ammir results) [facility] Physician) CREATININE, 0.90 Above high normal [facility] SERUM mg/dL (Ammir [facility] Physician) BUN/CREATININE 15.56 Normal (applies [facility] RATIO to non-numeric (Ammir results) [facility] Physician) CALCIUM, SERUM 9.9 Normal (applies [facility] mg/dL to non-numeric (Ammir results) [place] Physician) TOTAL PROTEIN 7.3 g/dL Normal (applies [facility] to non-numeric (Ammir results) [facility] Physician) Microalbumin 4.3 g/dL Normal (applies [facility] [Mass/time] in to non-numeric (Ammir Urine collected results) [place] for unspecified Physician) duration Globulin 3.0 gldl Normal (applies [facility] [Mass/time] in to non-numeric (Ammir 24 hour Urine results) [facility] Physician) A/G RATIO 1.43 Normal (applies [facility] g/dl to non-numeric (Ammir results) [facility] Physician) BILIRUBIN, TOTAL 0.7 Normal (applies [facility] mg/dL to non-numeric (Ammir results) [facility] Physician) ALKALINE 77 U/L Normal (applies [facility] PHOSPHATASE, ALP to non-numeric (Ammir results) [facility] Physician) ALT (SGPT) 15 U/L Normal (applies [facility] to non-numeric (Ammir results) [facility] Physician) AST 26 U/L Normal (applies [facility] to non-numeric (Ammir results) [facility] Physician) EGFR NON AFR 63 Above high normal [facility] SOMALI mL/min/1 (Ammir .73m2 [facility] Physician) EGFR AFR 77 Above high normal [facility] SOMALI mL/min/1 (Ammir .73m2 [facility] Physician) ID Date Data Source [id number] 11/30/2016 12:00:00 AM EDT [facility] (Ammir [facility] Physician) Name Value Range Interpretation Description Data Sup porting Code Source(s) Document(s ) WBC 6.9 Normal (applies to [facility] 10(3)/uL non-numeric (Ammir results) [facility] Physician) RBC 4.7 Normal (applies to [facility] 10(6)/uL non-numeric (Ammir results) [facility] Physician) Hemoglobin 14.6 g/dL Normal (applies to [facility] [Mass/volume] non-numeric (Ammir in Mixed results) [place] venous blood Physician) by Oximetry Hematocrit 43.8 % Normal (applies to [facility] [Pure volume non-numeric (Ammir fraction] of results) [place] Blood by Physician) Automated count MCV 93.4 fL Normal (applies to [facility] non-numeric (Ammir results) [facility] Physician) MCH 31 pg Normal (applies to [facility] non-numeric (Ammir results) [facility] Physician) MCHC 33 g/dL Normal (applies to [facility] non-numeric (Ammir results) [facility] Physician) PLT 221 Normal (applies to [facility] 10(3)/uL non-numeric (Ammir results) [facility] Physician) RDWSD 44.7 fL Normal (applies to [facility] non-numeric (Ammir results) [facility] Physician) RDWCV 13.1 % Normal (applies to [facility] non-numeric (Ammir results) [facility] Physician) MPV 12.1 fL Normal (applies to [facility] non-numeric (Ammir results) [facility] Physician) NE# 3.06 Normal (applies to [facility] 10(3)/uL non-numeric (Ammir results) [facility] Physician) LY# 2.79 Normal (applies to [facility] 10(3)/uL non-numeric (Ammir results) [facility] Physician) MO# 0.90 Normal (applies to [facility] 10(3)/uL non-numeric (Ammir results) [facility] Physician) EO# 0.07 Normal (applies to [facility] 10(3)/uL non-numeric (Ammir results) [facility] Physician) BA# 0.02 Normal (applies to [facility] 10(3)/uL non-numeric (Ammir results) [facility] Physician) IG# 0.02 Normal (applies to [facility] 10(3)/uL non-numeric (Ammir results) [facility] Physician) NE% 44.60 % Normal (applies to [facility] non-numeric (Ammir results) [facility] Physician) LY% 41 % Normal (applies to [facility] non-numeric (Ammir results) [facility] Physician) MO% 13.1 % Above high normal [facility] (Ammir [place] Physician) EO% 1.0 % Normal (applies to [facility] non-numeric (Ammir results) [facility] Physician) BA% 0.3 % Normal (applies to [facility] non-numeric (Ammir results) [facility] Physician) IG% 0.30 % Normal (applies to [facility] non-numeric (Ammir results) [facility] Physician) ID Date Data Source [id number] 11/30/2016 12:00:00 AM EDT [facility] (Ammir [facility] Physician) Name Value Range Interpretation Description Data Sup porting Code Source(s) Document(s ) T4 FREE, 1.49 Normal (applies to [facility] THYROXINE ng/dL non-numeric (Ammir results) [facility] Physician) TSH,3RD 1.99 Normal (applies to [facility] GENERATION uIU/mL non-numeric (Ammir results) [facility] Physician) ID Date Data Source [id number] 11/30/2016 12:00:00 AM EDT [facility] (Ammir [facility] Physician) Name Value Range Interpretation Description Data Sup porting Code Source(s) Document(s ) FOLATE SERUM 17.1 Above high normal [facility] (A mmir ng/mL [facility] Physician) VITAMIN B12 1035 Above high normal [facility] (Am maria guadalupe pg/mL [facility] Physician) ID Date Data Source [id number] 11/30/2016 12:00:00 AM EDT [facility] (Ammir [facility] Physician) Name Value Range Interpretation Description Data Sup porting Code Source(s) Document(s ) VITAMIN D 53.1 Normal (applies to [facility] (Amm ir 1.25 pg/mL non-numeric [facility] results) Physician) ID Date Data Source [id number] 10/09/2016 12:00:00 AM EDT [facility] (Ammir [place] Physician) Name Value Range Interpretation Description Data Sup porting Code Source(s) Document(s ) ORGANISM Abnormal (applies [facility] to non-numeric (Ammir results) [place] Physician) Comment Normal (applies [facility] [Interpretation] to non-numeric (Ammir Left eye Narrative results) [place] Ophthalmometer Physician) ID Date Data Source [id number] 10/09/2016 12:00:00 AM EDT [facility] (Ammir [facility] Physician) Name Value Range Interpretation Description Data Sup porting Code Source(s) Document(s ) Adenovirus Not Normal (applies [facility] [Presence] in Detected to non-numeric (Ammir Unspecified results) [place] specimen by Physician) Organism specific culture CORONAVIRUS [id number] Not Normal (applies [facility] Detected to non-numeric (Ammir results) [place] Physician) CORONAVIRUS HKU1 Not Normal (applies [facility] Detected to non-numeric (Ammir results) [place] Physician) CORONAVIRUS NL63 Not Normal (applies [facility] Detected to non-numeric (Ammir results) [facility] Physician) CORONAVIRUS OC43 Not Normal (applies [facility] Detected to non-numeric (Ammir results) [place] Physician) HUMAN Not Normal (applies [facility] METAPNEUMOVIRUS Detected to non-numeric (Ammir results) [place] Physician) HUMAN Detected Normal (applies [facility] RHINOVIRUS/ENTERO to non-numeric (Ammir VIRUS results) [place] Physician) INFLUENZA A/H1 Not Normal (applies [facility] Detected to non-numeric (Ammir results) [place] Physician) INFLUENZA A/H3 Not Normal (applies [facility] Detected to non-numeric (Ammir results) [place] Physician) INFLUENZA Not Normal (applies [facility] A/H1-2009 Detected to non-numeric (Ammir results) [place] Physician) INFLUENZA B Not Normal (applies [facility] Detected to non-numeric (Ammir results) [place] Physician) Parainfluenza Not Normal (applies [facility] virus 1 Detected to non-numeric (Ammir [Presence] in results) [place] Unspecified Physician) specimen by Organism specific culture Parainfluenza Not Normal (applies [facility] virus 2 Detected to non-numeric (Ammir [Presence] in results) [place] Unspecified Physician) specimen by Organism specific culture Parainfluenza Not Normal (applies [facility] virus 3 Detected to non-numeric (Ammir [Presence] in results) [place] Unspecified Physician) specimen by Organism specific culture PARAINFLUENZA Not Normal (applies [facility] VIRUS 4 Detected to non-numeric (Ammir results) [place] Physician) RESP.SYNCYTIAL Not Normal (applies [facility] VIRUS Detected to non-numeric (Ammir results) [place] Physician) Bordetella Not Normal (applies [facility] pertussis Detected to non-numeric (Ammir [Presence] in results) [place] Unspecified Physician) specimen by Organism specific culture Chlamydophila Not Normal (applies [facility] pneumoniae Detected to non-numeric (Ammir [Presence] in results) [place] Unspecified Physician) specimen by Organism specific culture Mycoplasma Not Normal (applies [facility] pneumoniae Detected to non-numeric (Ammir [Presence] in results) [place] Unspecified Physician) specimen by Organism specific culture ID Date Data Source [id number] 10/09/2016 12:00:00 AM EDT [facility] (Ammir [place] Physician) Name Value Range Interpretation Description Data Sup porting Code Source(s) Document(s ) ORGANISM Abnormal (applies [facility] to non-numeric (Ammir results) [place] Physician) Comment Normal (applies [facility] [Interpretation] to non-numeric (Ammir Left eye Narrative results) [place] Ophthalmometer Physician) ID Date Data Source [id number] 10/09/2016 12:00:00 AM EDT [facility] (Ammir [place] Physician) Name Value Range Interpretation Description Data Sup porting Code Source(s) Document(s ) Adenovirus Not Normal (applies [facility] [Presence] in Detected to non-numeric (Ammir Unspecified results) [place] specimen by Physician) Organism specific culture CORONAVIRUS 229E Not Normal (applies [facility] Detected to non-numeric (Ammir results) [place] Physician) CORONAVIRUS HKU1 Not Normal (applies [facility] Detected to non-numeric (Ammir results) [place] Physician) CORONAVIRUS NL63 Not Normal (applies [facility] Detected to non-numeric (Ammir results) [facility] Physician) CORONAVIRUS OC43 Not Normal (applies [facility] Detected to non-numeric (Ammir results) [place] Physician) HUMAN Not Normal (applies [facility] METAPNEUMOVIRUS Detected to non-numeric (Ammir results) [place] Physician) HUMAN Detected Normal (applies [facility] RHINOVIRUS/ENTERO to non-numeric (Ammir VIRUS results) [place] Physician) INFLUENZA A/H1 Not Normal (applies [facility] Detected to non-numeric (Ammir results) [place] Physician) INFLUENZA A/H3 Not Normal (applies [facility] Detected to non-numeric (Ammir results) [place] Physician) INFLUENZA Not Normal (applies [facility] A/H1-2009 Detected to non-numeric (Ammir results) [place] Physician) INFLUENZA B Not Normal (applies [facility] Detected to non-numeric (Ammir results) [place] Physician) Parainfluenza Not Normal (applies [facility] virus 1 Detected to non-numeric (Ammir [Presence] in results) [place] Unspecified Physician) specimen by Organism specific culture Parainfluenza Not Normal (applies [facility] virus 2 Detected to non-numeric (Ammir [Presence] in results) [place] Unspecified Physician) specimen by Organism specific culture Parainfluenza Not Normal (applies [facility] virus 3 Detected to non-numeric (Ammir [Presence] in results) [place] Unspecified Physician) specimen by Organism specific culture PARAINFLUENZA Not Normal (applies [facility] VIRUS 4 Detected to non-numeric (Ammir results) [place] Physician) RESP.SYNCYTIAL Not Normal (applies [facility] VIRUS Detected to non-numeric (Ammir results) [place] Physician) Bordetella Not Normal (applies [facility] pertussis Detected to non-numeric (Ammir [Presence] in results) [place] Unspecified Physician) specimen by Organism specific culture Chlamydophila Not Normal (applies [facility] pneumoniae Detected to non-numeric (Ammir [Presence] in results) [place] Unspecified Physician) specimen by Organism specific culture Mycoplasma Not Normal (applies [facility] pneumoniae Detected to non-numeric (Ammir [Presence] in results) [place] Unspecified Physician) specimen by Organism specific culture ID Date Data Source [id number] 10/09/2016 12:00:00 AM EDT [facility] (Ammir [place] Physician) Name Value Range Interpretation Description Data Sup porting Code Source(s) Document(s ) ORGANISM Abnormal (applies [facility] to non-numeric (Ammir results) [place] Physician) Comment Normal (applies [facility] [Interpretation] to non-numeric (Ammir Left eye Narrative results) [place] Ophthalmometer Physician) ID Date Data Source [id number] 10/09/2016 12:00:00 AM EDT [facility] (Ammir [place] Physician) Name Value Range Interpretation Description Data Sup porting Code Source(s) Document(s ) Adenovirus Not Normal (applies [facility] [Presence] in Detected to non-numeric (Ammir Unspecified results) [place] specimen by Physician) Organism specific culture CORONAVIRUS 229E Not Normal (applies [facility] Detected to non-numeric (Ammir results) [place] Physician) CORONAVIRUS HKU1 Not Normal (applies [facility] Detected to non-numeric (Ammir results) [place] Physician) CORONAVIRUS NL63 Not Normal (applies [facility] Detected to non-numeric (Ammir results) [place] Physician) CORONAVIRUS OC43 Not Normal (applies [facility] Detected to non-numeric (Ammir results) [place] Physician) HUMAN Not Normal (applies [facility] METAPNEUMOVIRUS Detected to non-numeric (Ammir results) [place] Physician) HUMAN Detected Normal (applies [facility] RHINOVIRUS/ENTERO to non-numeric (Ammir VIRUS results) [place] Physician) INFLUENZA A/H1 Not Normal (applies [facility] Detected to non-numeric (Ammir results) [place] Physician) INFLUENZA A/H3 Not Normal (applies [facility] Detected to non-numeric (Ammir results) [place] Physician) INFLUENZA Not Normal (applies [facility] A/H1-2009 Detected to non-numeric (Ammir results) [place] Physician) INFLUENZA B Not Normal (applies [facility] Detected to non-numeric (Ammir results) [place] Physician) Parainfluenza Not Normal (applies [facility] virus 1 Detected to non-numeric (Ammir [Presence] in results) [place] Unspecified Physician) specimen by Organism specific culture Parainfluenza Not Normal (applies [facility] virus 2 Detected to non-numeric (Ammir [Presence] in results) [place] Unspecified Physician) specimen by Organism specific culture Parainfluenza Not Normal (applies [facility] virus 3 Detected to non-numeric (Ammir [Presence] in results) [place] Unspecified Physician) specimen by Organism specific culture PARAINFLUENZA Not Normal (applies [facility] VIRUS 4 Detected to non-numeric (Ammir results) [place] Physician) RESP.SYNCYTIAL Not Normal (applies [facility] VIRUS Detected to non-numeric (Ammir results) [place] Physician) Bordetella Not Normal (applies [facility] pertussis Detected to non-numeric (Ammir [Presence] in results) [place] Unspecified Physician) specimen by Organism specific culture Chlamydophila Not Normal (applies [facility] pneumoniae Detected to non-numeric (Ammir [Presence] in results) [place] Unspecified Physician) specimen by Organism specific culture Mycoplasma Not Normal (applies [facility] pneumoniae Detected to non-numeric (Ammir [Presence] in results) [place] Unspecified Physician) specimen by Organism specific culture ID Date Data Source [id number] 10/09/2016 12:00:00 AM EDT [facility] (Ammir [place] Physician) Name Value Range Interpretation Description Data Sup porting Code Source(s) Document(s ) ORGANISM Abnormal (applies [facility] to non-numeric (Ammir results) [place] Physician) Comment Normal (applies [facility] [Interpretation] to non-numeric (Ammir Left eye Narrative results) [place] Ophthalmometer Physician) ID Date Data Source [id number] 10/09/2016 12:00:00 AM EDT [facility] (Ammir [place] Physician) Name Value Range Interpretation Description Data Sup porting Code Source(s) Document(s ) Adenovirus Not Normal (applies [facility] [Presence] in Detected to non-numeric (Ammir Unspecified results) [place] specimen by Physician) Organism specific culture CORONAVIRUS 229E Not Normal (applies [facility] Detected to non-numeric (Ammir results) [place] Physician) CORONAVIRUS HKU1 Not Normal (applies [facility] Detected to non-numeric (Ammir results) [place] Physician) CORONAVIRUS NL63 Not Normal (applies [facility] Detected to non-numeric (Ammir results) [place] Physician) CORONAVIRUS OC43 Not Normal (applies [facility] Detected to non-numeric (Ammir results) [place] Physician) HUMAN Not Normal (applies [facility] METAPNEUMOVIRUS Detected to non-numeric (Ammir results) [place] Physician) HUMAN Detected Normal (applies [facility] RHINOVIRUS/ENTERO to non-numeric (Ammir VIRUS results) [place] Physician) INFLUENZA A/H1 Not Normal (applies [facility] Detected to non-numeric (Ammir results) [place] Physician) INFLUENZA A/H3 Not Normal (applies [facility] Detected to non-numeric (Ammir results) [place] Physician) INFLUENZA Not Normal (applies [facility] A/H1-2009 Detected to non-numeric (Ammir results) [place] Physician) INFLUENZA B Not Normal (applies [facility] Detected to non-numeric (Ammir results) [place] Physician) Parainfluenza Not Normal (applies [facility] virus 1 Detected to non-numeric (Ammir [Presence] in results) [place] Unspecified Physician) specimen by Organism specific culture Parainfluenza Not Normal (applies [facility] virus 2 Detected to non-numeric (Ammir [Presence] in results) [place] Unspecified Physician) specimen by Organism specific culture Parainfluenza Not Normal (applies [facility] virus 3 Detected to non-numeric (Ammir [Presence] in results) [place] Unspecified Physician) specimen by Organism specific culture PARAINFLUENZA Not Normal (applies [facility] VIRUS 4 Detected to non-numeric (Ammir results) [place] Physician) RESP.SYNCYTIAL Not Normal (applies [facility] VIRUS Detected to non-numeric (Ammir results) [place] Physician) Bordetella Not Normal (applies [facility] pertussis Detected to non-numeric (Ammir [Presence] in results) [place] Unspecified Physician) specimen by Organism specific culture Chlamydophila Not Normal (applies [facility] pneumoniae Detected to non-numeric (Ammir [Presence] in results) [place] Unspecified Physician) specimen by Organism specific culture Mycoplasma Not Normal (applies [facility] pneumoniae Detected to non-numeric (Ammir [Presence] in results) [place] Unspecified Physician) specimen by Organism specific culture ID Date Data Source [id number] 08/08/2016 12:00:00 AM EDT [facility] (Ammir [place] Physician) Name Value Range Interpretation Code Description Data Ning rce(s) Supporting Document(s ) LYME TOTAL 0.0 Normal (applies to [facility] (Am maria guadalupe IGG/IGM non-numeric results) [place] Physician) ID Date Data Source [id number] 08/08/2016 12:00:00 AM EDT [facility] (Ammir [place] Physician) Name Value Range Interpretation Description Data Sup porting Code Source(s) Document(s ) GLUCOSE 91 mg/dL Normal (applies [facility] NONFASTING,SERUM to non-numeric (Ammir results) [place] Physician) SODIUM, SERUM 139 Normal (applies [facility] mEq/L to non-numeric (Ammir results) [place] Physician) POTASSIUM, SERUM 4.3 Normal (applies [facility] mEq/L to non-numeric (Ammir results) [place] Physician) CHLORIDE, SERUM 106 Normal (applies [facility] mEq/L to non-numeric (Ammir results) [place] Physician) Carbon dioxide 26 mEq/L Normal (applies [facility] [VFr/PPres] in to non-numeric (Ammir Gas delivery results) [place] system Physician) Anion gap in 11.3 Normal (applies [facility] Body fluid mEq/L to non-numeric (Ammir results) [place] Physician) BLOOD UREA 15 mg/dL Normal (applies [facility] NITROGEN to non-numeric (Ammir results) [place] Physician) CREATININE, 0.80 Normal (applies [facility] SERUM mg/dL to non-numeric (Ammir results) [place] Physician) CALCIUM, SERUM 9.5 Normal (applies [facility] mg/dL to non-numeric (Ammir results) [place] Physician) TOTAL PROTEIN 6.9 g/dL Normal (applies [facility] to non-numeric (Ammir results) [place] Physician) Microalbumin 4.2 g/dL Normal (applies [facility] [Mass/time] in to non-numeric (Ammir Urine collected results) [place] for unspecified Physician) duration Globulin 2.7 gldl Normal (applies [facility] [Mass/time] in to non-numeric (Ammir 24 hour Urine results) [place] Physician) A/G RATIO 1.56 Normal (applies [facility] g/dl to non-numeric (Ammir results) [place] Physician) BILIRUBIN, TOTAL 0.7 Normal (applies [facility] mg/dL to non-numeric (Ammir results) [place] Physician) ALKALINE 70 U/L Normal (applies [facility] PHOSPHATASE, ALP to non-numeric (Ammir results) [place] Physician) ALT (SGPT) 20 U/L Normal (applies [facility] to non-numeric (Ammir results) [place] Physician) AST 28 U/L Normal (applies [facility] to non-numeric (Ammir results) [place] Physician) EGFR NON AFR 72 Above high normal [facility] SOMALI mL/min/1 (Ammir .73m2 [place] Physician) EGFR AFR 88 Above high normal [facility] SOMALI mL/min/1 (Ammir .73m2 [place] Physician) ID Date Data Source [id number] 08/08/2016 12:00:00 AM EDT [facility] (Ammir [place] Physician) Name Value Range Interpretation Description Data Sup porting Code Source(s) Document(s ) WBC 7.3 Normal (applies to [facility] 10(3)/uL non-numeric (Ammir results) [place] Physician) RBC 4.6 Normal (applies to [facility] 10(6)/uL non-numeric (Ammir results) [place] Physician) Hemoglobin 14.6 g/dL Normal (applies to [facility] [Mass/volume] non-numeric (Ammir in Mixed results) [place] venous blood Physician) by Oximetry Hematocrit 44 % Normal (applies to [facility] [Pure volume non-numeric (Ammir fraction] of results) [place] Blood by Physician) Automated count MCV 95.2 fL Normal (applies to [facility] non-numeric (Ammir results) [place] Physician) MCH 32 pg Normal (applies to [facility] non-numeric (Ammir results) [place] Physician) MCHC 33 g/dL Normal (applies to [facility] non-numeric (Ammir results) [place] Physician) PLT 351 Normal (applies to [facility] 10(3)/uL non-numeric (Ammir results) [place] Physician) RDWSD 43.7 fL Normal (applies to [facility] non-numeric (Ammir results) [place] Physician) RDWCV 12.5 % Normal (applies to [facility] non-numeric (Ammir results) [place] Physician) MPV 10.5 fL Normal (applies to [facility] non-numeric (Ammir results) [place] Physician) NE# 5.62 Normal (applies to [facility] 10(3)/uL non-numeric (Ammir results) [place] Physician) LY# 1.19 Normal (applies to [facility] 10(3)/uL non-numeric (Ammir results) [place] Physician) MO# 0.46 Normal (applies to [facility] 10(3)/uL non-numeric (Ammir results) [place] Physician) EO# 0.01 Normal (applies to [facility] 10(3)/uL non-numeric (Ammir results) [place] Physician) BA# 0.02 Normal (applies to [facility] 10(3)/uL non-numeric (Ammir results) [place] Physician) IG# 0.03 Normal (applies to [facility] 10(3)/uL non-numeric (Ammir results) [place] Physician) NE% 76.70 % Above high normal [facility] (Ammir [place] Physician) LY% 16 % Below low normal [facility] (Ammir [place] Physician) MO% 6.3 % Normal (applies to [facility] non-numeric (Ammir results) [place] Physician) EO% 0.1 % Normal (applies to [facility] non-numeric (Ammir results) [place] Physician) BA% 0.3 % Normal (applies to [facility] non-numeric (Ammir results) [place] Physician) IG% 0.40 % Normal (applies to [facility] non-numeric (Ammir results) [place] Physician) ID Date Data Source [id number] 08/08/2016 12:00:00 AM EDT [facility] (Ammir [place] Physician) Name Value Range Interpretation Code Description Data Ning rce(s) Supporting Document(s ) JERONIMO 0.1 Ratio Normal (applies to [facility] (Amm ir Screen(Sy non-numeric [place] mphony) results) Physician) ID Date Data Source [id number] 08/08/2016 12:00:00 AM EDT [facility] (Ammir [place] Physician) Name Value Range Interpretation Description Data Sup porting Code Source(s) Document(s ) ASO 56.1 Normal (applies [facility] ANTISTREPTOLYSIN O IU/mL to non-numeric (Ammir AB results) [place] Physician) ID Date Data Source [id number] 08/08/2016 12:00:00 AM EDT [facility] (Ammir [place] Physician) Name Value Range Interpretation Code Description Data Nnig rce(s) Supporting Document(s ) dsDNA <0.5 Normal (applies to [facility] (Amm ir non-numeric results) [place] Physician) ID Date Data Source [id number] 08/08/2016 12:00:00 AM EDT [facility] (Ammir [place] Physician) Name Value Range Interpretation Description Data Sup porting Code Source(s) Document(s ) C-REACTIVE 1.6 mg/dL Above high normal [facility] (Amm ir PROTEIN [place] (INFL) Physician) ID Date Data Source [id number] 08/08/2016 12:00:00 AM EDT [facility] (Ammir [place] Physician) Name Value Range Interpretation Code Description Data Ning rce(s) Supporting Document(s ) URIC ACID 2.5 mg/dL Below low normal [facility] (Ammir [place] Physician) ID Date Data Source [id number] 08/08/2016 12:00:00 AM EDT [facility] (Ammir [place] Physician) Name Value Range Interpretation Description Data Sup porting Code Source(s) Document(s ) RHEUMATOID 10.20 Normal (applies to [facility] FACTOR IGG/IGM IU/mL non-numeric (Ammir results) [place] Physician) ID Date Data Source [id number] 08/08/2016 12:00:00 AM EDT [facility] (Ammir [place] Physician) Name Value Range Interpretation Code Description Data Ning rce(s) Supporting Document(s ) ESR 36 mm/hr Above high normal [facility] (Ammi r [place] Physician) ID Date Data Source [id number] 08/08/2016 12:00:00 AM EDT [facility] (Ammir [place] Physician) Name Value Range Interpretation Code Description Data Ning rce(s) Supporting Document(s ) LYME TOTAL 0.0 Normal (applies to [facility] (Am maria guadalupe IGG/IGM non-numeric results) [place] Physician) ID Date Data Source [id number] 08/08/2016 12:00:00 AM EDT [facility] (Ammir [place] Physician) Name Value Range Interpretation Description Data Sup porting Code Source(s) Document(s ) GLUCOSE 91 mg/dL Normal (applies [facility] NONFASTING,SERUM to non-numeric (Ammir results) [place] Physician) SODIUM, SERUM 139 Normal (applies [facility] mEq/L to non-numeric (Ammir results) [place] Physician) POTASSIUM, SERUM 4.3 Normal (applies [facility] mEq/L to non-numeric (Ammir results) [place] Physician) CHLORIDE, SERUM 106 Normal (applies [facility] mEq/L to non-numeric (Ammir results) [place] Physician) Carbon dioxide 26 mEq/L Normal (applies [facility] [VFr/PPres] in to non-numeric (Ammir Gas delivery results) [place] system Physician) Anion gap in 11.3 Normal (applies [facility] Body fluid mEq/L to non-numeric (Ammir results) [place] Physician) BLOOD UREA 15 mg/dL Normal (applies [facility] NITROGEN to non-numeric (Ammir results) [place] Physician) CREATININE, 0.80 Normal (applies [facility] SERUM mg/dL to non-numeric (Ammir results) [place] Physician) CALCIUM, SERUM 9.5 Normal (applies [facility] mg/dL to non-numeric (Ammir results) [place] Physician) TOTAL PROTEIN 6.9 g/dL Normal (applies [facility] to non-numeric (Ammir results) [place] Physician) Microalbumin 4.2 g/dL Normal (applies [facility] [Mass/time] in to non-numeric (Ammir Urine collected results) [place] for unspecified Physician) duration Globulin 2.7 gldl Normal (applies [facility] [Mass/time] in to non-numeric (Ammir 24 hour Urine results) [place] Physician) A/G RATIO 1.56 Normal (applies [facility] g/dl to non-numeric (Ammir results) [place] Physician) BILIRUBIN, TOTAL 0.7 Normal (applies [facility] mg/dL to non-numeric (Ammir results) [place] Physician) ALKALINE 70 U/L Normal (applies [facility] PHOSPHATASE, ALP to non-numeric (Ammir results) [place] Physician) ALT (SGPT) 20 U/L Normal (applies [facility] to non-numeric (Ammir results) [place] Physician) AST 28 U/L Normal (applies [facility] to non-numeric (Ammir results) [place] Physician) EGFR NON AFR 72 Above high normal [facility] SOMALI mL/min/1 (Ammir .73m2 [place] Physician) EGFR AFR 88 Above high normal [facility] SOMALI mL/min/1 (Ammir .73m2 [place] Physician) ID Date Data Source [id number] 08/08/2016 12:00:00 AM EDT [facility] (Ammir [place] Physician) Name Value Range Interpretation Description Data Sup porting Code Source(s) Document(s ) WBC 7.3 Normal (applies to [facility] 10(3)/uL non-numeric (Ammir results) [place] Physician) RBC 4.6 Normal (applies to [facility] 10(6)/uL non-numeric (Ammir results) [place] Physician) Hemoglobin 14.6 g/dL Normal (applies to [facility] [Mass/volume] non-numeric (Ammir in Mixed results) [place] venous blood Physician) by Oximetry Hematocrit 44 % Normal (applies to [facility] [Pure volume non-numeric (Ammir fraction] of results) [place] Blood by Physician) Automated count MCV 95.2 fL Normal (applies to [facility] non-numeric (Ammir results) [place] Physician) MCH 32 pg Normal (applies to [facility] non-numeric (Ammir results) [place] Physician) MCHC 33 g/dL Normal (applies to [facility] non-numeric (Ammir results) [place] Physician) PLT 351 Normal (applies to [facility] 10(3)/uL non-numeric (Ammir results) [place] Physician) RDWSD 43.7 fL Normal (applies to [facility] non-numeric (Ammir results) [place] Physician) RDWCV 12.5 % Normal (applies to [facility] non-numeric (Ammir results) [place] Physician) MPV 10.5 fL Normal (applies to [facility] non-numeric (Ammir results) [place] Physician) NE# 5.62 Normal (applies to [facility] 10(3)/uL non-numeric (Ammir results) [place] Physician) LY# 1.19 Normal (applies to [facility] 10(3)/uL non-numeric (Ammir results) [place] Physician) MO# 0.46 Normal (applies to [facility] 10(3)/uL non-numeric (Ammir results) [place] Physician) EO# 0.01 Normal (applies to [facility] 10(3)/uL non-numeric (Ammir results) [place] Physician) BA# 0.02 Normal (applies to [facility] 10(3)/uL non-numeric (Ammir results) [place] Physician) IG# 0.03 Normal (applies to [facility] 10(3)/uL non-numeric (Ammir results) [place] Physician) NE% 76.70 % Above high normal [facility] (Ammir [place] Physician) LY% 16 % Below low normal [facility] (Ammir [place] Physician) MO% 6.3 % Normal (applies to [facility] non-numeric (Ammir results) [place] Physician) EO% 0.1 % Normal (applies to [facility] non-numeric (Ammir results) [place] Physician) BA% 0.3 % Normal (applies to [facility] non-numeric (Ammir results) [place] Physician) IG% 0.40 % Normal (applies to [facility] non-numeric (Ammir results) [place] Physician) ID Date Data Source [id number] 08/08/2016 12:00:00 AM EDT [facility] (Ammir [place] Physician) Name Value Range Interpretation Code Description Data Ning rce(s) Supporting Document(s ) JERONIMO 0.1 Ratio Normal (applies to [facility] (Amm ir Screen(Sy non-numeric [place] mphony) results) Physician) ID Date Data Source [id number] 08/08/2016 12:00:00 AM EDT [facility] (Ammir [place] Physician) Name Value Range Interpretation Description Data Sup porting Code Source(s) Document(s ) ASO 56.1 Normal (applies [facility] ANTISTREPTOLYSIN O IU/mL to non-numeric (Ammir AB results) [place] Physician) ID Date Data Source [id number] 08/08/2016 12:00:00 AM EDT [facility] (Ammir [place] Physician) Name Value Range Interpretation Code Description Data Ning rce(s) Supporting Document(s ) dsDNA <0.5 Normal (applies to [facility] (Amm ir non-numeric results) [place] Physician) ID Date Data Source [id number] 08/08/2016 12:00:00 AM EDT [facility] (Ammir [place] Physician) Name Value Range Interpretation Description Data Sup porting Code Source(s) Document(s ) C-REACTIVE 1.6 mg/dL Above high normal [facility] (Amm ir PROTEIN [place] (INFL) Physician) ID Date Data Source [id number] 08/08/2016 12:00:00 AM EDT [facility] (Ammir [place] Physician) Name Value Range Interpretation Code Description Data Ning rce(s) Supporting Document(s ) URIC ACID 2.5 mg/dL Below low normal [facility] (Ammir [place] Physician) ID Date Data Source [id number] 08/08/2016 12:00:00 AM EDT [facility] (Ammir [place] Physician) Name Value Range Interpretation Description Data Sup porting Code Source(s) Document(s ) RHEUMATOID 10.20 Normal (applies to [facility] FACTOR IGG/IGM IU/mL non-numeric (Ammir results) [place] Physician) ID Date Data Source [id number] 08/08/2016 12:00:00 AM EDT [facility] (Ammir [place] Physician) Name Value Range Interpretation Code Description Data Ning rce(s) Supporting Document(s ) ESR 36 mm/hr Above high normal [facility] (Ammi r [place] Physician) ID Date Data Source [id number] 08/08/2016 12:00:00 AM EDT [facility] (Ammir [facility]) Name Value Range Interpretation Description Data Sup porting Code Source(s) Document(s ) WBC 7.3 Normal (applies to [facility] 10(3)/uL non-numeric (Ammir results) [facility]) RBC 4.6 Normal (applies to [facility] 10(6)/uL non-numeric (Ammir results) [facility]) Hemoglobin 14.6 g/dL Normal (applies to [facility] [Mass/volume] non-numeric (Ammir in Mixed results) [place] venous blood Physician) by Oximetry Hematocrit 44 % Normal (applies to [facility] [Pure volume non-numeric (Ammir fraction] of results) [facility] Blood by Physician) Automated count MCV 95.2 fL Normal (applies to [facility] non-numeric (Ammir results) [facility]) MCH 32 pg Normal (applies to [facility] non-numeric (Ammir results) [facility]) MCHC 33 g/dL Normal (applies to [facility] non-numeric (Ammir results) [facility] Phys[facility]) PLT 351 Normal (applies to [facility] 10(3)/uL non-numeric (Ammir results) [facility]) RDWSD 43.7 fL Normal (applies to [facility] non-numeric (Ammir results) [facility]) RDWCV 12.5 % Normal (applies to [facility] non-numeric (Ammir results) [facility]) MPV 10.5 fL Normal (applies to [facility] non-numeric (Ammir results) [facility]) NE# 5.62 Normal (applies to [facility] 10(3)/uL non-numeric (Ammir results) [facility]) LY# 1.19 Normal (applies to [facility] 10(3)/uL non-numeric (Ammir results) [facility]) MO# 0.46 Normal (applies to [facility] 10(3)/uL non-numeric (Ammir results) [facility]) EO# 0.01 Normal (applies to [facility] 10(3)/uL non-numeric (Ammir results) [facility]) BA# 0.02 Normal (applies to [facility] 10(3)/uL non-numeric (Ammir results) [facility] Phys[facility]) IG# 0.03 Normal (applies to [facility] 10(3)/uL non-numeric (Ammir results) [facility]) NE% 76.70 % Above high normal [facility] (Ammir [facility]) LY% 16 % Below low normal [facility] (Ammir [facility]) MO% 6.3 % Normal (applies to [facility] non-numeric (Ammir results) [facility]) EO% 0.1 % Normal (applies to [facility] non-numeric (Ammir results) [facility] Phys[facility]) BA% 0.3 % Normal (applies to [facility] non-numeric (Ammir results) [facility] Phys[facility]) IG% 0.40 % Normal (applies to [facility] non-numeric (Ammir results) [facility]) ID Date Data Source [id number] 08/08/2016 12:00:00 AM EDT [facility] (Ammir [facility]) Name Value Range Interpretation Code Description Data Ning rce(s) Supporting Document(s ) JERONIMO 0.1 Ratio Normal (applies to [facility] (Amm ir Screen(Sy non-numeric [facility] mphony) results) Physician) ID Date Data Source [id number] 08/08/2016 12:00:00 AM EDT [facility] ([facility]mmir [facility]) Name Value Range Interpretation Description Data Sup porting Code Source(s) Document(s ) ASO 56.1 Normal (applies [facility] ANTISTREPTOLYSIN O IU/mL to non-numeric (Ammir AB results) [facility]) ID Date Data Source [id number] 08/08/2016 12:00:00 AM EDT [facility] (Ammir [facility]) Name Value Range Interpretation Code Description Data Ning rce(s) Supporting Document(s ) dsDNA <0.5 Normal (applies to [facility] (Amm ir non-numeric results) [facility]) ID Date Data Source [id number] 08/08/2016 12:00:00 AM EDT [facility] (Ammir [facility]) Name Value Range Interpretation Description Data Sup porting Code Source(s) Document(s ) C-REACTIVE 1.6 mg/dL Above high normal [facility] (Amm ir PROTEIN [place] (INFL) Physician) ID Date Data Source [id number] 08/08/2016 12:00:00 AM EDT [facility] (Ammir [facility]) Name Value Range Interpretation Code Description Data Ning rce(s) Supporting Document(s ) URIC ACID 2.5 mg/dL Below low normal [facility] (Ammir [facility]) ID Date Data Source [id number] 08/08/2016 12:00:00 AM EDT [facility] (Ammir [facility]) Name Value Range Interpretation Description Data Sup porting Code Source(s) Document(s ) RHEUMATOID 10.20 Normal (applies to [facility] FACTOR IGG/IGM IU/mL non-numeric (Ammir results) [facility]) ID Date Data Source [id number] 08/08/2016 12:00:00 AM EDT [facility] (Ammir [facility]) Name Value Range Interpretation Code Description Data Ning rce(s) Supporting Document(s ) ESR 36 mm/hr Above high normal [facility] (Ammi r [facility] Phys[facility]) ID Date Data Source [id number] 08/08/2016 12:00:00 AM EDT [facility] (Ammir [facility]) Name Value Range Interpretation Code Description Data Ning rce(s) Supporting Document(s ) LYME TOTAL 0.0 Normal (applies to [facility] (Am maria guadalupe IGG/IGM non-numeric results) [facility]) ID Date Data Source [id number] 08/08/2016 12:00:00 AM EDT [facility] (Ammir [facility]) Name Value Range Interpretation Description Data Sup porting Code Source(s) Document(s ) GLUCOSE 91 mg/dL Normal (applies [facility] NONFASTING,SERUM to non-numeric (Ammir results) [facility]) SODIUM, SERUM 139 Normal (applies [facility] mEq/L to non-numeric (Ammir results) [facility]) POTASSIUM, SERUM 4.3 Normal (applies [facility] mEq/L to non-numeric (Ammir results) [facility] Physician) CHLORIDE, SERUM 106 Normal (applies [facility] mEq/L to non-numeric (Ammir results) [facility]) Carbon dioxide 26 mEq/L Normal (applies [facility] [VFr/PPres] in to non-numeric (Ammir Gas delivery results) [facility] system Physician) Anion gap in 11.3 Normal (applies [facility] Body fluid mEq/L to non-numeric (Ammir results) [facility]) BLOOD UREA 15 mg/dL Normal (applies [facility] NITROGEN to non-numeric (Ammir results) [facility]) CREATININE, 0.80 Normal (applies [facility] SERUM mg/dL to non-numeric (Ammir results) [facility]) CALCIUM, SERUM 9.5 Normal (applies [facility] mg/dL to non-numeric (Ammir results) [facility]) TOTAL PROTEIN 6.9 g/dL Normal (applies [facility] to non-numeric (Ammir results) [facility]) Microalbumin 4.2 g/dL Normal (applies [facility] [Mass/time] in to non-numeric (Ammir Urine collected results) [facility] for unspecified Physician) duration Globulin 2.7 gldl Normal (applies [facility] [Mass/time] in to non-numeric (Ammir 24 hour Urine results) [facility]) A/G RATIO 1.56 Normal (applies [facility] g/dl to non-numeric (Ammir results) [facility]) BILIRUBIN, TOTAL 0.7 Normal (applies [facility] mg/dL to non-numeric (Ammir results) [facility]) ALKALINE 70 U/L Normal (applies [facility] PHOSPHATASE, ALP to non-numeric (Ammir results) [facility]) ALT (SGPT) 20 U/L Normal (applies [facility] to non-numeric (Ammir results) [facility]) AST 28 U/L Normal (applies [facility] to non-numeric (Ammir results) [facility]) EGFR NON AFR 72 Above high normal [facility] SOMALI mL/min/1 (Ammir .73m2 [facility]) EGFR AFR 88 Above high normal [facility] SOMALI mL/min/1 (Ammir .73m2 [facility]) ID Date Data Source [id number] 08/08/2016 12:00:00 AM EDT [facility] (Ammir [facility]) Name Value Range Interpretation Description Data Sup porting Code Source(s) Document(s ) WBC 7.3 Normal (applies to [facility] 10(3)/uL non-numeric (Ammir results) [facility]) RBC 4.6 Normal (applies to [facility] 10(6)/uL non-numeric (Ammir results) [facility]) Hemoglobin 14.6 g/dL Normal (applies to [facility] [Mass/volume] non-numeric (Ammir in Mixed results) [facility] venous blood Physician) by Oximetry Hematocrit 44 % Normal (applies to [facility] [Pure volume non-numeric (Ammir fraction] of results) [facility] Blood by Physician) Automated count MCV 95.2 fL Normal (applies to [facility] non-numeric (Ammir results) [facility]) MCH 32 pg Normal (applies to [facility] non-numeric (Ammir results) [facility]) MCHC 33 g/dL Normal (applies to [facility] non-numeric (Ammir results) [facility] Phys[facility]) PLT 351 Normal (applies to [facility] 10(3)/uL non-numeric (Ammir results) [facility] Phys[facility]) RDWSD 43.7 fL Normal (applies to [facility] non-numeric (Ammir results) [facility]) RDWCV 12.5 % Normal (applies to [facility] non-numeric (Ammir results) [facility]) MPV 10.5 fL Normal (applies to [facility] non-numeric (Ammir results) [facility]) NE# 5.62 Normal (applies to [facility] 10(3)/uL non-numeric (Ammir results) [facility]) LY# 1.19 Normal (applies to [facility] 10(3)/uL non-numeric (Ammir results) [facility]) MO# 0.46 Normal (applies to [facility] 10(3)/uL non-numeric (Ammir results) [facility]) EO# 0.01 Normal (applies to [facility] 10(3)/uL non-numeric (Ammir results) [facility]) BA# 0.02 Normal (applies to [facility] 10(3)/uL non-numeric (Ammir results) [facility]) IG# 0.03 Normal (applies to [facility] 10(3)/uL non-numeric (Ammir results) [facility]) NE% 76.70 % Above high normal [facility] (Ammir [facility]) LY% 16 % Below low normal [facility] (Ammir [facility]) MO% 6.3 % Normal (applies to [facility] non-numeric (Ammir results) [facility]) EO% 0.1 % Normal (applies to [facility] non-numeric (Ammir results) [facility]) BA% 0.3 % Normal (applies to [facility] non-numeric (Ammir results) [facility]) IG% 0.40 % Normal (applies to [facility] non-numeric (Ammir results) [facility]) ID Date Data Source [id number] 08/08/2016 12:00:00 AM EDT [facility] (Ammir [facility]) Name Value Range Interpretation Code Description Data Ning rce(s) Supporting Document(s ) JERONIMO 0.1 Ratio Normal (applies to [facility] (Amm ir Screen(Sy non-numeric [facility] mphony) results) Physician) ID Date Data Source [id number] 08/08/2016 12:00:00 AM EDT [facility] (Ammir [facility]) Name Value Range Interpretation Description Data Sup porting Code Source(s) Document(s ) ASO 56.1 Normal (applies [facility] ANTISTREPTOLYSIN O IU/mL to non-numeric (Ammir AB results) [facility]) ID Date Data Source [id number] 08/08/2016 12:00:00 AM EDT [facility] (Ammir [facility]) Name Value Range Interpretation Code Description Data Ning rce(s) Supporting Document(s ) dsDNA <0.5 Normal (applies to [facility] (Amm ir non-numeric results) [facility]) ID Date Data Source [id number] 08/08/2016 12:00:00 AM EDT [facility] (Ammir [facility]) Name Value Range Interpretation Description Data Sup porting Code Source(s) Document(s ) C-REACTIVE 1.6 mg/dL Above high normal [facility] (Amm ir PROTEIN [place] (INFL) Physician) ID Date Data Source [id number] 08/08/2016 12:00:00 AM EDT [facility] (Ammir [facility]) Name Value Range Interpretation Code Description Data Ning rce(s) Supporting Document(s ) URIC ACID 2.5 mg/dL Below low normal [facility] (Ammir [facility]) ID Date Data Source [id number] 08/08/2016 12:00:00 AM EDT [facility] (Ammir [facility]) Name Value Range Interpretation Description Data Sup porting Code Source(s) Document(s ) RHEUMATOID 10.20 Normal (applies to [facility] FACTOR IGG/IGM IU/mL non-numeric (Ammir results) [facility]) ID Date Data Source [id number] 08/08/2016 12:00:00 AM EDT [facility] (Ammir [facility]) Name Value Range Interpretation Code Description Data Ning rce(s) Supporting Document(s ) ESR 36 mm/hr Above high normal [facility] (Ammi r [facility]) ID Date Data Source [id number] 08/08/2016 12:00:00 AM EDT [facility] (Ammir [facility]) Name Value Range Interpretation Code Description Data Ning rce(s) Supporting Document(s ) LYME TOTAL 0.0 Normal (applies to [facility] (Am maria guadalupe IGG/IGM non-numeric results) [facility]) ID Date Data Source [id number] 08/08/2016 12:00:00 AM EDT [facility] (Ammir [facility]) Name Value Range Interpretation Description Data Sup porting Code Source(s) Document(s ) GLUCOSE 91 mg/dL Normal (applies [facility] NONFASTING,SERUM to non-numeric (Ammir results) [facility]) SODIUM, SERUM 139 Normal (applies [facility] mEq/L to non-numeric (Ammir results) [facility]) POTASSIUM, SERUM 4.3 Normal (applies [facility] mEq/L to non-numeric (Ammir results) [facility]) CHLORIDE, SERUM 106 Normal (applies [facility] mEq/L to non-numeric (Ammir results) [facility]) Carbon dioxide 26 mEq/L Normal (applies [facility] [VFr/PPres] in to non-numeric (Ammir Gas delivery results) [facility] system Physician) Anion gap in 11.3 Normal (applies [facility] Body fluid mEq/L to non-numeric (Ammir results) [facility]) BLOOD UREA 15 mg/dL Normal (applies [facility] NITROGEN to non-numeric (Ammir results) [facility]) CREATININE, 0.80 Normal (applies [facility] SERUM mg/dL to non-numeric (Ammir results) [facility]ician) CALCIUM, SERUM 9.5 Normal (applies [facility] mg/dL to non-numeric (Ammir results) [facility]) TOTAL PROTEIN 6.9 g/dL Normal (applies [facility] to non-numeric (Ammir results) [facility]ician) Microalbumin 4.2 g/dL Normal (applies [facility] [Mass/time] in to non-numeric (Ammir Urine collected results) [facility] for unspecified Physician) duration Globulin 2.7 gldl Normal (applies [facility] [Mass/time] in to non-numeric (Ammir 24 hour Urine results) [facility]) A/G RATIO 1.56 Normal (applies [facility] g/dl to non-numeric (Ammir results) [facility]) BILIRUBIN, TOTAL 0.7 Normal (applies [facility] mg/dL to non-numeric (Ammir results) [facility]) ALKALINE 70 U/L Normal (applies [facility] PHOSPHATASE, ALP to non-numeric (Ammir results) [facility]) ALT (SGPT) 20 U/L Normal (applies [facility] to non-numeric (Ammir results) [facility]) AST 28 U/L Normal (applies [facility] to non-numeric (Ammir results) [facility]) EGFR NON AFR 72 Above high normal [facility] SOMALI mL/min/1 (Ammir .73m2 [facility]) EGFR AFR 88 Above high normal [facility] SOMALI mL/min/1 (Ammir .73m2 [facility]) ID Date Data Source [id number] 06/24/2016 12:00:00 AM EDT [facility] (Ammir [facility]) Name Value Range Interpretation Description Data Sup porting Code Source(s) Document(s ) HEPATITIS NONREACTIVE Normal (applies [facility] A(IGM) to non-numeric (Ammir results) [facility]) ID Date Data Source [id number] 06/24/2016 12:00:00 AM EDT [facility] (Ammir [facility]) Name Value Range Interpretation Code Description Data Ning rce(s) Supporting Document(s ) T3 TOTAL 86 ng/dL Normal (applies to [facility] (Amm ir non-numeric [facility] results) Physician) ID Date Data Source [id number] 06/24/2016 12:00:00 AM EDT [facility] (Ammir [facility]) Name Value Range Interpretation Description Data Sup porting Code Source(s) Document(s ) T4 TOTAL 10 ug/dL Normal (applies to [facility] (Amm ir THYROXINE non-numeric [facility] results) Physician) ID Date Data Source [id number] 06/24/2016 12:00:00 AM EDT [facility] (Ammir [facility]) Name Value Range Interpretation Description Data Sup porting Code Source(s) Document(s ) T3 FREE 2.5 Normal (applies [facility] TRIIODOTHYRONINE pg/mL to non-numeric (Ammir results) [facility]) ID Date Data Source [id number] 06/24/2016 12:00:00 AM EDT [facility] (Ammir [facility]) Name Value Range Interpretation Description Data Sup porting Code Source(s) Document(s ) Cholesterol 49 mg/dL Normal (applies [facility] [Moles/volume] to non-numeric (Ammir in Pericardial results) [facility] fluid Physician) LDL CALCULATION 26.6 Normal (applies [facility] mg/dL to non-numeric (Ammir results) [facility] Physician) CHOL/HDL RATIO 3.06 Normal (applies [facility] ratio to non-numeric (Ammir results) [facility] Physician) HDL CHOLESTEROL 16 mg/dL Above high normal [facility] (Ammir [facility] Physician) VLDL CALCULATION 6.4 Normal (applies [facility] mg/dl to non-numeric (Ammir results) [facility] Physician) TRIGLYCERIDES 32 mg/dL Normal (applies [facility] to non-numeric (Ammir results) [facility] Physician) ID Date Data Source [id number] 06/24/2016 12:00:00 AM EDT [facility] (mir [facility]) Name Value Range Interpretation Description Data Sup porting Code Source(s) Document(s ) GLUCOSE 75 mg/dL Normal (applies [facility] NONFASTING,SERUM to non-numeric (Ammir results) [facility] Physician) SODIUM, SERUM 142 Normal (applies [facility] mEq/L to non-numeric (Ammir results) [facility] Physician) POTASSIUM, SERUM 4.6 Normal (applies [facility] mEq/L to non-numeric (Ammir results) [facility] Physician) CHLORIDE, SERUM 108 Normal (applies [facility] mEq/L to non-numeric (Ammir results) [facility] Physician) Carbon dioxide 19 mEq/L Below low normal [facility] [VFr/PPres] in (Ammir Gas delivery [facility] system Physician) Anion gap in 19.6 Above high normal [facility] BLOOD UREA 4 mg/dL Below low normal [facility] NITROGEN ([facility]) CREATININE, 1 mg/dL Above high normal [facility] SERUM ([facility]) BUN/CREATININE 4.00 Below low normal [facility] RATIO ([facility]) CALCIUM, SERUM 9.7 Normal (applies [facility] mg/dL to non-numeric (Ammir results) [facility] Physician) TOTAL PROTEIN 1.6 g/dL Below low normal [facility]) Microalbumin 1 g/dL Below low normal [facility] [Mass/time] in (Ammir Urine collected [place] for unspecified Physician) duration Globulin 0.6 gldl Below low normal [facility] [Mass/time] in (mir 24 hour Urine [facility] Physician) A/G RATIO 1.67 Normal (applies [facility] g/dl to non-numeric (Ammir results) [facility] Physician) BILIRUBIN, TOTAL 0.2 Below low normal [facility] mg/dL (Ammir [place] Physician) ALKALINE 24 U/L Below low normal [facility] PHOSPHATASE, ALP ([facility]) ALT (SGPT) 6 U/L Below low normal [facility] (Ammir [place] Physician) AST 9 U/L Below low normal [facility] (Ammir [place] Physician) EGFR NON AFR 56 Above high normal [facility] SOMALI mL/min/1 (Ammir .73m2 [facility] Physician) EGFR AFR 68 Above high normal [facility] SOMALI mL/min/1 (Ammir .73m2 [facility] Physician) ID Date Data Source [id number] 06/24/2016 12:00:00 AM EDT [facility] (Ammir [facility] [facility]ician) Name Value Range Interpretation Description Data Sup porting Code Source(s) Document(s ) WBC 8.07 Normal (applies to [facility] 10(3)/uL non-numeric (Ammir results) [facility] Physician) RBC 4.73 Normal (applies to [facility] 10(6)/uL non-numeric (Ammir results) [facility] Physician) Hemoglobin 14.9 g/dL Normal (applies to [facility] [Mass/volume] non-numeric (Ammir in Mixed results) [place] venous blood Physician) by Oximetry Hematocrit 43.8 % Normal (applies to [facility] [Pure volume non-numeric (Ammir fraction] of results) [place] Blood by Physician) Automated count MCV 92.6 fL Normal (applies to [facility] non-numeric (Ammir results) [facility] Physician) MCH 31.5 pg Normal (applies to [facility] non-numeric (Ammir results) [facility] Physician) MCHC 34.0 g/dL Normal (applies to [facility] non-numeric (Ammir results) [facility] Physician) PLT 230 Normal (applies to [facility] 10(3)/uL non-numeric (Ammir results) [facility] Physician) RDWSD 43.5 fL Normal (applies to [facility] non-numeric (Ammir results) [facility] Physician) RDWCV 12.8 % Normal (applies to [facility] non-numeric (Ammir results) [facility] Physician) MPV 12.3 fL Normal (applies to [facility] non-numeric (Ammir results) [facility] Physician) NE# 4.39 Normal (applies to [facility] 10(3)/uL non-numeric (Ammir results) [facility] Physician) LY# 2.69 Normal (applies to [facility] 10(3)/uL non-numeric (Ammir results) [facility] Physician) MO# 0.88 Normal (applies to [facility] 10(3)/uL non-numeric (Ammir results) [facility] Physician) EO# 0.07 Normal (applies to [facility] 10(3)/uL non-numeric (Ammir results) [facility] Physician) BA# 0.02 Normal (applies to [facility] 10(3)/uL non-numeric (Ammir results) [facility] Physician) IG# 0.02 Normal (applies to [facility] 10(3)/uL non-numeric (Ammir results) [facility] Physician) NE% 54.5 % Normal (applies to [facility] non-numeric (Ammir results) [facility] Physician) LY% 33.3 % Normal (applies to [facility] non-numeric (Ammir results) [facility] Physician) MO% 10.9 % Normal (applies to [facility] non-numeric (Ammir results) [facility] Physician) EO% 0.9 % Normal (applies to [facility] non-numeric (Ammir results) [facility] Physician) BA% 0.2 % Normal (applies to [facility] non-numeric (Ammir results) [facility] Physician) IG% 0.2 % Normal (applies to [facility] non-numeric (Ammir results) [facility] Physician) ID Date Data Source [id number] 06/24/2016 12:00:00 AM EDT [facility] (Ammir [facility] Physician) Name Value Range Interpretation Code Description Data Supporting Source(s) Document(s ) GLYCOMARK 11.49 Normal (applies to [facility] (Amm ir ug/mL non-numeric [place] results) Physician) ID Date Data Source [id number] 06/24/2016 12:00:00 AM EDT [facility] (Ammir [facility] Physician) Name Value Range Interpretation Description Data Sup porting Code Source(s) Document(s ) Hemoglobin A1c 5.2 % Normal (applies to [facility] (Ammir in Blood non-numeric [place] results) Physician) ID Date Data Source [id number] 06/24/2016 12:00:00 AM EDT [facility] (Ammir [place] Physician) Name Value Range Interpretation Description Data Sup porting Code Source(s) Document(s ) HEPATITIS BE NONREACTIVE Normal (applies [facility] AG to non-numeric (Ammir results) [facility] Physician) ID Date Data Source [id number] 06/24/2016 12:00:00 AM EDT [facility] (Ammir [facility] Physician) Name Value Range Interpretation Description Data Sup porting Code Source(s) Document(s ) HEPATITIS B <3.10 Normal (applies to [facility] (A mmir SURFACE AB (NONREACT non-numeric [facility] JEREMIE) results) Physician) ID Date Data Source [id number] 06/24/2016 12:00:00 AM EDT [facility] (Ammir [place] Physician) Name Value Range Interpretation Description Data Sup porting Code Source(s) Document(s ) HEPATITIS B NONREACTIVE Normal (applies [facility] CORE AB QL to non-numeric (Ammir results) [facility] Physician) ID Date Data Source [id number] 06/24/2016 12:00:00 AM EDT [facility] (Ammir [place] Physician) Name Value Range Interpretation Description Data Sup porting Code Source(s) Document(s ) HEPATITIS C NONREACTIVE Normal (applies [facility] AB QL to non-numeric (Ammir results) [facility] Physician) ID Date Data Source [id number] 06/24/2016 12:00:00 AM EDT [facility] (Ammir [facility] Physician) Name Value Range Interpretation Code Description Data Ning rce(s) Supporting Document(s ) HBeAB NEGATIVE Normal (applies to [facility] (Amm ir non-numeric results) [facility] Physician) ID Date Data Source [id number] 06/24/2016 12:00:00 AM EDT [facility] (Ammir [place] Physician) Name Value Range Interpretation Description Data Sup porting Code Source(s) Document(s ) HEPATITIS BS NONREACTIVE Normal (applies [facility] AG SCREEN to non-numeric (Ammir results) [facility] Physician) ID Date Data Source [id number] 06/24/2016 12:00:00 AM EDT [facility] (Ammir [place] Physician) Name Value Range Interpretation Description Data Sup porting Code Source(s) Document(s ) HEPATITIS A REACTIVE Normal (applies to [facility] (A mmir AB non-numeric [place] results) Physician) ID Date Data Source [id number] 06/24/2016 12:00:00 AM EDT [facility] (Ammir [facility] Physician) Name Value Range Interpretation Description Data Sup porting Code Source(s) Document(s ) T4 FREE, 1.65 Normal (applies to [facility] THYROXINE ng/dL non-numeric (Ammir results) [facility] Physician) TSH,3RD 3.007 Normal (applies to [facility] GENERATION uIU/mL non-numeric (Ammir results) [facility] Physician) ID Date Data Source [id number] 06/24/2016 12:00:00 AM EDT [facility] (Ammir [place] Physician) Name Value Range Interpretation Description Data Sup porting Code Source(s) Document(s ) FOLATE SERUM 21.6 Above high normal [facility] (A mmir ng/mL [place] Physician) VITAMIN B12 1124 Above high normal [facility] (Am maria guadalupe pg/mL [facility] Physician) ID Date Data Source [id number] 06/24/2016 12:00:00 AM EDT [facility] (Ammir [place] Physician) Name Value Range Interpretation Description Data Sup porting Code Source(s) Document(s ) VITAMIN D 29.8 Normal (applies to [facility] (Amm ir 1.25 pg/mL non-numeric [place] results) Physician) ID Date Data Source [id number] 06/24/2016 12:00:00 AM EDT [facility] (Ammir [facility] Physician) Name Value Range Interpretation Description Data Sup porting Code Source(s) Document(s ) HEPATITIS NONREACTIVE Normal (applies [facility] A(IGM) to non-numeric (Ammir results) [facility] Physician) ID Date Data Source [id number] 06/24/2016 12:00:00 AM EDT [facility] (Ammir [facility] Physician) Name Value Range Interpretation Code Description Data Ning rce(s) Supporting Document(s ) T3 TOTAL 86 ng/dL Normal (applies to [facility] (Amm ir non-numeric [place] results) Physician) ID Date Data Source [id number] 06/24/2016 12:00:00 AM EDT [facility] (Ammir [place] Physician) Name Value Range Interpretation Description Data Sup porting Code Source(s) Document(s ) T4 TOTAL 10 ug/dL Normal (applies to [facility] (Amm ir THYROXINE non-numeric [place] results) Physician) ID Date Data Source [id number] 06/24/2016 12:00:00 AM EDT [facility] (Ammir [place] Physician) Name Value Range Interpretation Description Data Sup porting Code Source(s) Document(s ) T3 FREE 2.5 Normal (applies [facility] TRIIODOTHYRONINE pg/mL to non-numeric (Ammir results) [facility] Physician) ID Date Data Source [id number] 06/24/2016 12:00:00 AM EDT [facility] (Ammir [place] Physician) Name Value Range Interpretation Description Data Sup porting Code Source(s) Document(s ) Cholesterol 49 mg/dL Normal (applies [facility] [Moles/volume] to non-numeric (Ammir in Pericardial results) [place] fluid Physician) LDL CALCULATION 26.6 Normal (applies [facility] mg/dL to non-numeric (Ammir results) [place] Physician) CHOL/HDL RATIO 3.06 Normal (applies [facility] ratio to non-numeric (Ammir results) [place] Physician) HDL CHOLESTEROL 16 mg/dL Above high normal [facility] (Ammir [place] Physician) VLDL CALCULATION 6.4 Normal (applies [facility] mg/dl to non-numeric (Ammir results) [place] Physician) TRIGLYCERIDES 32 mg/dL Normal (applies [facility] to non-numeric (Ammir results) [place] Physician) ID Date Data Source [id number] 06/24/2016 12:00:00 AM EDT [facility] (Ammir [facility] Physician) Name Value Range Interpretation Description Data Sup porting Code Source(s) Document(s ) GLUCOSE 75 mg/dL Normal (applies [facility] NONFASTING,SERUM to non-numeric (Ammir results) [place] Physician) SODIUM, SERUM 142 Normal (applies [facility] mEq/L to non-numeric (Ammir results) [place] Physician) POTASSIUM, SERUM 4.6 Normal (applies [facility] mEq/L to non-numeric (Ammir results) [place] Physician) CHLORIDE, SERUM 108 Normal (applies [facility] mEq/L to non-numeric (Ammir results) [place] Physician) Carbon dioxide 19 mEq/L Below low normal [facility] [VFr/PPres] in ([facility] Gas delivery [place] system Physician) Anion gap in 19.6 Above high normal [facility] Body fluid mEq/L (Ammir [place] Physician) BLOOD UREA 4 mg/dL Below low normal [facility] NITROGEN (Ammir [place] Physician) CREATININE, 1 mg/dL Above high normal [facility] SERUM (Ammir [place] Physician) BUN/CREATININE 4.00 Below low normal [facility] RATIO (Ammir [place] Physician) CALCIUM, SERUM 9.7 Normal (applies [facility] mg/dL to non-numeric (Ammir results) [place] Physician) TOTAL PROTEIN 1.6 g/dL Below low normal [facility] (Ammir [place] Physician) Microalbumin 1 g/dL Below low normal [facility] [Mass/time] in (Ammir Urine collected [place] for unspecified Physician) duration Globulin 0.6 gldl Below low normal [facility] [Mass/time] in (Ammir 24 hour Urine [place] Physician) A/G RATIO 1.67 Normal (applies [facility] g/dl to non-numeric (Ammir results) [place] Physician) BILIRUBIN, TOTAL 0.2 Below low normal [facility] mg/dL (Ammir [place] Physician) ALKALINE 24 U/L Below low normal [facility] PHOSPHATASE, ALP (Ammir [place] Physician) ALT (SGPT) 6 U/L Below low normal [facility] (Ammir [place] Physician) AST 9 U/L Below low normal [facility] (Ammir [place] Physician) EGFR NON AFR 56 Above high normal [facility] SOMALI mL/min/1 (Ammir .73m2 [place] Physician) EGFR AFR 68 Above high normal [facility] SOMALI mL/min/1 (Ammir .73m2 [place] Physician) ID Date Data Source [id number] 06/24/2016 12:00:00 AM EDT [facility] (Ammir [place] Physician) Name Value Range Interpretation Description Data Sup porting Code Source(s) Document(s ) WBC 8.07 Normal (applies to [facility] 10(3)/uL non-numeric (Ammir results) [place] Physician) RBC 4.73 Normal (applies to [facility] 10(6)/uL non-numeric (Ammir results) [place] Physician) Hemoglobin 14.9 g/dL Normal (applies to [facility] [Mass/volume] non-numeric (Ammir in Mixed results) [place] venous blood Physician) by Oximetry Hematocrit 43.8 % Normal (applies to [facility] [Pure volume non-numeric (Ammir fraction] of results) [place] Blood by Physician) Automated count MCV 92.6 fL Normal (applies to [facility] non-numeric (Ammir results) [place] Physician) MCH 31.5 pg Normal (applies to [facility] non-numeric (Ammir results) [place] Physician) MCHC 34.0 g/dL Normal (applies to [facility] non-numeric (Ammir results) [place] Physician) PLT 230 Normal (applies to [facility] 10(3)/uL non-numeric (Ammir results) [place] Physician) RDWSD 43.5 fL Normal (applies to [facility] non-numeric (Ammir results) [place] Physician) RDWCV 12.8 % Normal (applies to [facility] non-numeric (Ammir results) [place] Physician) MPV 12.3 fL Normal (applies to [facility] non-numeric (Ammir results) [place] Physician) NE# 4.39 Normal (applies to [facility] 10(3)/uL non-numeric (Ammir results) [place] Physician) LY# 2.69 Normal (applies to [facility] 10(3)/uL non-numeric (Ammir results) [place] Physician) MO# 0.88 Normal (applies to [facility] 10(3)/uL non-numeric (Ammir results) [place] Physician) EO# 0.07 Normal (applies to [facility] 10(3)/uL non-numeric (Ammir results) [place] Physician) BA# 0.02 Normal (applies to [facility] 10(3)/uL non-numeric (Ammir results) [place] Physician) IG# 0.02 Normal (applies to [facility] 10(3)/uL non-numeric (Ammir results) [place] Physician) NE% 54.5 % Normal (applies to [facility] non-numeric (Ammir results) [place] Physician) LY% 33.3 % Normal (applies to [facility] non-numeric (Ammir results) [place] Physician) MO% 10.9 % Normal (applies to [facility] non-numeric (Ammir results) [place] Physician) EO% 0.9 % Normal (applies to [facility] non-numeric (Ammir results) [place] Physician) BA% 0.2 % Normal (applies to [facility] non-numeric (Ammir results) [place] Physician) IG% 0.2 % Normal (applies to [facility] non-numeric (Ammir results) [place] Physician) ID Date Data Source [id number] 06/24/2016 12:00:00 AM EDT [facility] (Ammir [facility] Physician) Name Value Range Interpretation Code Description Data Supporting Source(s) Document(s ) GLYCOMARK 11.49 Normal (applies to [facility] (Amm ir ug/mL non-numeric [place] results) Physician) ID Date Data Source [id number] 06/24/2016 12:00:00 AM EDT [facility] (Ammir [facility] Physician) Name Value Range Interpretation Description Data Sup porting Code Source(s) Document(s ) Hemoglobin A1c 5.2 % Normal (applies to [facility] (Ammir in Blood non-numeric [place] results) Physician) ID Date Data Source [id number] 06/24/2016 12:00:00 AM EDT [facility] (Ammir [facility] Physician) Name Value Range Interpretation Description Data Sup porting Code Source(s) Document(s ) HEPATITIS BE NONREACTIVE Normal (applies [facility] AG to non-numeric (Ammir results) [place] Physician) ID Date Data Source [id number] 06/24/2016 12:00:00 AM EDT [facility] (Ammir [place] Physician) Name Value Range Interpretation Description Data Sup porting Code Source(s) Document(s ) HEPATITIS B <3.10 Normal (applies to [facility] (A mmir SURFACE AB (NONREACT non-numeric [place] JEREMIE) results) Physician) ID Date Data Source [id number] 06/24/2016 12:00:00 AM EDT [facility] (Ammir [place] Physician) Name Value Range Interpretation Description Data Sup porting Code Source(s) Document(s ) HEPATITIS B NONREACTIVE Normal (applies [facility] CORE AB QL to non-numeric (Ammir results) [place] Physician) ID Date Data Source [id number] 06/24/2016 12:00:00 AM EDT [facility] (Ammir [facility] Physician) Name Value Range Interpretation Description Data Sup porting Code Source(s) Document(s ) HEPATITIS C NONREACTIVE Normal (applies [facility] AB QL to non-numeric (Ammir results) [place] Physician) ID Date Data Source [id number] 06/24/2016 12:00:00 AM EDT [facility] (Ammir [facility] Physician) Name Value Range Interpretation Code Description Data Ning rce(s) Supporting Document(s ) HBeAB NEGATIVE Normal (applies to [facility] (Amm ir non-numeric results) [place] Physician) ID Date Data Source [id number] 06/24/2016 12:00:00 AM EDT [facility] (Ammir [place] Physician) Name Value Range Interpretation Description Data Sup porting Code Source(s) Document(s ) HEPATITIS BS NONREACTIVE Normal (applies [facility] AG SCREEN to non-numeric (Ammir results) [place] Physician) ID Date Data Source [id number] 06/24/2016 12:00:00 AM EDT [facility] (Ammir [place] Physician) Name Value Range Interpretation Description Data Sup porting Code Source(s) Document(s ) HEPATITIS A REACTIVE Normal (applies to [facility] (A mmir AB non-numeric [place] results) Physician) ID Date Data Source [id number] 06/24/2016 12:00:00 AM EDT [facility] (Ammir [place] Physician) Name Value Range Interpretation Description Data Sup porting Code Source(s) Document(s ) T4 FREE, 1.65 Normal (applies to [facility] THYROXINE ng/dL non-numeric (Ammir results) [place] Physician) TSH,3RD 3.007 Normal (applies to [facility] GENERATION uIU/mL non-numeric (Ammir results) [place] Physician) ID Date Data Source [id number] 06/24/2016 12:00:00 AM EDT [facility] (Ammir [place] Physician) Name Value Range Interpretation Description Data Sup porting Code Source(s) Document(s ) FOLATE SERUM 21.6 Above high normal [facility] (A mmir ng/mL [place] Physician) VITAMIN B12 1124 Above high normal [facility] (Am maria guadalupe pg/mL [place] Physician) ID Date Data Source [id number] 06/24/2016 12:00:00 AM EDT [facility] (Ammir [place] Physician) Name Value Range Interpretation Description Data Sup porting Code Source(s) Document(s ) VITAMIN D 29.8 Normal (applies to [facility] (Amm ir 1.25 pg/mL non-numeric [place] results) Physician) ID Date Data Source [id number] 06/24/2016 12:00:00 AM EDT [facility] (Ammir [place] Physician) Name Value Range Interpretation Description Data Sup porting Code Source(s) Document(s ) HEPATITIS NONREACTIVE Normal (applies [facility] A(IGM) to non-numeric (Ammir results) [place] Physician) ID Date Data Source [id number] 06/24/2016 12:00:00 AM EDT [facility] (Ammir [place] Physician) Name Value Range Interpretation Code Description Data Ning rce(s) Supporting Document(s ) T3 TOTAL 86 ng/dL Normal (applies to [facility] (Amm ir non-numeric [place] results) Physician) ID Date Data Source [id number] 06/24/2016 12:00:00 AM EDT [facility] (Ammir [place] Physician) Name Value Range Interpretation Description Data Sup porting Code Source(s) Document(s ) T4 TOTAL 10 ug/dL Normal (applies to [facility] (Amm ir THYROXINE non-numeric [place] results) Physician) ID Date Data Source [id number] 06/24/2016 12:00:00 AM EDT [facility] (Ammir [place] Physician) Name Value Range Interpretation Description Data Sup porting Code Source(s) Document(s ) T3 FREE 2.5 Normal (applies [facility] TRIIODOTHYRONINE pg/mL to non-numeric (Ammir results) [place] Physician) ID Date Data Source [id number] 06/24/2016 12:00:00 AM EDT [facility] (Ammir [place] Physician) Name Value Range Interpretation Description Data Sup porting Code Source(s) Document(s ) Cholesterol 49 mg/dL Normal (applies [facility] [Moles/volume] to non-numeric (Ammir in Pericardial results) [place] fluid Physician) LDL CALCULATION 26.6 Normal (applies [facility] mg/dL to non-numeric (Ammir results) [place] Physician) CHOL/HDL RATIO 3.06 Normal (applies [facility] ratio to non-numeric (Ammir results) [place] Physician) HDL CHOLESTEROL 16 mg/dL Above high normal [facility] (Ammir [place] Physician) VLDL CALCULATION 6.4 Normal (applies [facility] mg/dl to non-numeric (Ammir results) [place] Physician) TRIGLYCERIDES 32 mg/dL Normal (applies [facility] to non-numeric (Ammir results) [place] Physician) ID Date Data Source [id number] 06/24/2016 12:00:00 AM EDT [facility] (Ammir [place] Physician) Name Value Range Interpretation Description Data Sup porting Code Source(s) Document(s ) GLUCOSE 75 mg/dL Normal (applies [facility] NONFASTING,SERUM to non-numeric (Ammir results) [place] Physician) SODIUM, SERUM 142 Normal (applies [facility] mEq/L to non-numeric (Ammir results) [place] Physician) POTASSIUM, SERUM 4.6 Normal (applies [facility] mEq/L to non-numeric (Ammir results) [place] Physician) CHLORIDE, SERUM 108 Normal (applies [facility] mEq/L to non-numeric (Ammir results) [place] Physician) Carbon dioxide 19 mEq/L Below low normal [facility] [VFr/PPres] in (Ammir Gas delivery [place] system Physician) Anion gap in 19.6 Above high normal [facility] BLOOD UREA 4 mg/dL Below low normal [facility] NITROGEN (mir [place] Physician) CREATININE, 1 mg/dL Above high normal [facility] SERUM (mir [place] Physician) BUN/CREATININE 4.00 Below low normal [facility] RATIO (mir [place] Physician) CALCIUM, SERUM 9.7 Normal (applies [facility] mg/dL to non-numeric (Ammir results) [place] Physician) TOTAL PROTEIN 1.6 g/dL Below low normal [facility] (mir [place] Physician) Microalbumin 1 g/dL Below low normal [facility] [Mass/time] in (Ammir Urine collected [place] for unspecified Physician) duration Globulin 0.6 gldl Below low normal [facility] [Mass/time] in (Ammir 24 hour Urine [place] Physician) A/G RATIO 1.67 Normal (applies [facility] g/dl to non-numeric (Ammir results) [place] Physician) BILIRUBIN, TOTAL 0.2 Below low normal [facility] mg/dL ([facility]) ALKALINE 24 U/L Below low normal [facility] PHOSPHATASE, ALP ([facility]) ALT (SGPT) 6 U/L Below low normal [facility] (Ammir [place] Physician) AST 9 U/L Below low normal [facility] (Ammir [place] Physician) EGFR NON AFR 56 Above high normal [facility] SOMALI mL/min/1 (Ammir .73m2 [place] Physician) EGFR AFR 68 Above high normal [facility] SOMALI mL/min/1 (Ammir .73m2 [place] Physician) ID Date Data Source [id number] 06/24/2016 12:00:00 AM EDT [facility] (mir [place] Physician) Name Value Range Interpretation Description Data Sup porting Code Source(s) Document(s ) WBC 8.07 Normal (applies to [facility] 10(3)/uL non-numeric (Ammir results) [place] Physician) RBC 4.73 Normal (applies to [facility] 10(6)/uL non-numeric (Ammir results) [place] Physician) Hemoglobin 14.9 g/dL Normal (applies to [facility] [Mass/volume] non-numeric (Ammir in Mixed results) [place] venous blood Physician) by Oximetry Hematocrit 43.8 % Normal (applies to [facility] [Pure volume non-numeric (Ammir fraction] of results) [facility] Blood by Physician) Automated count MCV 92.6 fL Normal (applies to [facility] non-numeric (Ammir results) [place] Physician) MCH 31.5 pg Normal (applies to [facility] non-numeric (Ammir results) [place] Physician) MCHC 34.0 g/dL Normal (applies to [facility] non-numeric (Ammir results) [place] Physician) PLT 230 Normal (applies to [facility] 10(3)/uL non-numeric (Ammir results) [place] Physician) RDWSD 43.5 fL Normal (applies to [facility] non-numeric (Ammir results) [place] Physician) RDWCV 12.8 % Normal (applies to [facility] non-numeric (Ammir results) [place] Physician) MPV 12.3 fL Normal (applies to [facility] non-numeric (Ammir results) [place] Physician) NE# 4.39 Normal (applies to [facility] 10(3)/uL non-numeric (Ammir results) [place] Physician) LY# 2.69 Normal (applies to [facility] 10(3)/uL non-numeric (Ammir results) [place] Physician) MO# 0.88 Normal (applies to [facility] 10(3)/uL non-numeric (Ammir results) [place] Physician) EO# 0.07 Normal (applies to [facility] 10(3)/uL non-numeric (Ammir results) [place] Physician) BA# 0.02 Normal (applies to [facility] 10(3)/uL non-numeric (Ammir results) [place] Physician) IG# 0.02 Normal (applies to [facility] 10(3)/uL non-numeric (Ammir results) [place] Physician) NE% 54.5 % Normal (applies to [facility] non-numeric (Ammir results) [place] Physician) LY% 33.3 % Normal (applies to [facility] non-numeric (Ammir results) [place] Physician) MO% 10.9 % Normal (applies to [facility] non-numeric (Ammir results) [place] Physician) EO% 0.9 % Normal (applies to [facility] non-numeric (Ammir results) [place] Physician) BA% 0.2 % Normal (applies to [facility] non-numeric (Ammir results) [place] Physician) IG% 0.2 % Normal (applies to [facility] non-numeric (Ammir results) [place] Physician) ID Date Data Source [id number] 06/24/2016 12:00:00 AM EDT [facility] (Ammir [place] Physician) Name Value Range Interpretation Code Description Data Supporting Source(s) Document(s ) GLYCOMARK 11.49 Normal (applies to [facility] (Amm ir ug/mL non-numeric [place] results) Physician) ID Date Data Source [id number] 06/24/2016 12:00:00 AM EDT [facility] (Ammir [place] Physician) Name Value Range Interpretation Description Data Sup porting Code Source(s) Document(s ) Hemoglobin A1c 5.2 % Normal (applies to [facility] (Ammir in Blood non-numeric [place] results) Physician) ID Date Data Source [id number] 06/24/2016 12:00:00 AM EDT [facility] (Ammir [place] Physician) Name Value Range Interpretation Description Data Sup porting Code Source(s) Document(s ) HEPATITIS BE NONREACTIVE Normal (applies [facility] AG to non-numeric (Ammir results) [place] Physician) ID Date Data Source [id number] 06/24/2016 12:00:00 AM EDT [facility] (Ammir [place] Physician) Name Value Range Interpretation Description Data Sup porting Code Source(s) Document(s ) HEPATITIS B <3.10 Normal (applies to [facility] (A mmir SURFACE AB (NONREACT non-numeric [place] JEREMIE) results) Physician) ID Date Data Source [id number] 06/24/2016 12:00:00 AM EDT [facility] (Ammir [place] Physician) Name Value Range Interpretation Description Data Sup porting Code Source(s) Document(s ) HEPATITIS B NONREACTIVE Normal (applies [facility] CORE AB QL to non-numeric (Ammir results) [place] Physician) ID Date Data Source [id number] 06/24/2016 12:00:00 AM EDT [facility] (Ammir [place] Physician) Name Value Range Interpretation Description Data Sup porting Code Source(s) Document(s ) HEPATITIS C NONREACTIVE Normal (applies [facility] AB QL to non-numeric (Ammir results) [place] Physician) ID Date Data Source [id number] 06/24/2016 12:00:00 AM EDT [facility] (Ammir [place] Physician) Name Value Range Interpretation Code Description Data Ning rce(s) Supporting Document(s ) HBeAB NEGATIVE Normal (applies to [facility] (Amm ir non-numeric results) [place] Physician) ID Date Data Source [id number] 06/24/2016 12:00:00 AM EDT [facility] (Ammir [place] Physician) Name Value Range Interpretation Description Data Sup porting Code Source(s) Document(s ) HEPATITIS BS NONREACTIVE Normal (applies [facility] AG SCREEN to non-numeric (Ammir results) [place] Physician) ID Date Data Source [id number] 06/24/2016 12:00:00 AM EDT [facility] (Ammir [place] Physician) Name Value Range Interpretation Description Data Sup porting Code Source(s) Document(s ) HEPATITIS A REACTIVE Normal (applies to [facility] (A mmir AB non-numeric [place] results) Physician) ID Date Data Source [id number] 06/24/2016 12:00:00 AM EDT [facility] (Ammir [place] Physician) Name Value Range Interpretation Description Data Sup porting Code Source(s) Document(s ) T4 FREE, 1.65 Normal (applies to [facility] THYROXINE ng/dL non-numeric (Ammir results) [place] Physician) TSH,3RD 3.007 Normal (applies to [facility] GENERATION uIU/mL non-numeric (Ammir results) [place] Physician) ID Date Data Source [id number] 06/24/2016 12:00:00 AM EDT [facility] (Ammir [place] Physician) Name Value Range Interpretation Description Data Sup porting Code Source(s) Document(s ) FOLATE SERUM 21.6 Above high normal [facility] (A mmir ng/mL [place] Physician) VITAMIN B12 1124 Above high normal [facility] (Am maria guadalupe pg/mL [place] Physician) ID Date Data Source [id number] 06/24/2016 12:00:00 AM EDT [facility] (Ammir [place] Physician) Name Value Range Interpretation Description Data Sup porting Code Source(s) Document(s ) VITAMIN D 29.8 Normal (applies to [facility] (Amm ir 1.25 pg/mL non-numeric [place] results) Physician) ID Date Data Source [id number] 06/24/2016 12:00:00 AM EDT [facility] (Ammir [place] Physician) Name Value Range Interpretation Description Data Sup porting Code Source(s) Document(s ) HEPATITIS NONREACTIVE Normal (applies [facility] A(IGM) to non-numeric (Ammir results) [place] Physician) ID Date Data Source [id number] 06/24/2016 12:00:00 AM EDT [facility] (Ammir [place] Physician) Name Value Range Interpretation Code Description Data Ning rce(s) Supporting Document(s ) T3 TOTAL 86 ng/dL Normal (applies to [facility] (Amm ir non-numeric [place] results) Physician) ID Date Data Source [id number] 06/24/2016 12:00:00 AM EDT [facility] (Ammir [place] Physician) Name Value Range Interpretation Description Data Sup porting Code Source(s) Document(s ) T4 TOTAL 10 ug/dL Normal (applies to [facility] (Amm ir THYROXINE non-numeric [place] results) Physician) ID Date Data Source [id number] 06/24/2016 12:00:00 AM EDT [facility] (Ammir [place] Physician) Name Value Range Interpretation Description Data Sup porting Code Source(s) Document(s ) T3 FREE 2.5 Normal (applies [facility] TRIIODOTHYRONINE pg/mL to non-numeric (Ammir results) [place] Physician) ID Date Data Source [id number] 06/24/2016 12:00:00 AM EDT [facility] (Ammir [place] Physician) Name Value Range Interpretation Description Data Sup porting Code Source(s) Document(s ) Cholesterol 49 mg/dL Normal (applies [facility] [Moles/volume] to non-numeric (Ammir in Pericardial results) [place] fluid Physician) LDL CALCULATION 26.6 Normal (applies [facility] mg/dL to non-numeric (Ammir results) [place] Physician) CHOL/HDL RATIO 3.06 Normal (applies [facility] ratio to non-numeric (Ammir results) [place] Physician) HDL CHOLESTEROL 16 mg/dL Above high normal [facility] (Ammir [place] Physician) VLDL CALCULATION 6.4 Normal (applies [facility] mg/dl to non-numeric (Ammir results) [place] Physician) TRIGLYCERIDES 32 mg/dL Normal (applies [facility] to non-numeric (Ammir results) [place] Physician) ID Date Data Source [id number] 06/24/2016 12:00:00 AM EDT [facility] (mir [place] Physician) Name Value Range Interpretation Description Data Sup porting Code Source(s) Document(s ) GLUCOSE 75 mg/dL Normal (applies [facility] NONFASTING,SERUM to non-numeric (Ammir results) [place] Physician) SODIUM, SERUM 142 Normal (applies [facility] mEq/L to non-numeric (Ammir results) [place] Physician) POTASSIUM, SERUM 4.6 Normal (applies [facility] mEq/L to non-numeric (mir results) [place] Physician) CHLORIDE, SERUM 108 Normal (applies [facility] mEq/L to non-numeric (Ammir results) [place] Physician) Carbon dioxide 19 mEq/L Below low normal [facility] [VFr/PPres] in ([facility] system Physician) Anion gap in 19.6 Above high normal [facility] Body fluid mEq/L ([facility]) BLOOD UREA 4 mg/dL Below low normal [facility] NITROGEN ([facility]) CREATININE, 1 mg/dL Above high normal [facility] BUN/CREATININE 4.00 Below low normal [facility] RATIO ([facility]) CALCIUM, SERUM 9.7 Normal (applies [facility] mg/dL to non-numeric (Ammir results) [place] Physician) TOTAL PROTEIN 1.6 g/dL Below low normal [facility] ([facility]) Microalbumin 1 g/dL Below low normal [facility] [Mass/time] in ([facility] [place] for unspecified Physician) duration Globulin 0.6 gldl Below low normal [facility] [Mass/time] in ([facility] [place] Phys[facility]) A/G RATIO 1.67 Normal (applies [facility] g/dl to non-numeric (Ammir results) [place] Physician) BILIRUBIN, TOTAL 0.2 Below low normal [facility] mg/dL ([facility] ALKALINE 24 U/L Below low normal [facility] PHOSPHATASE, ALP (Ammir [place] Physician) ALT (SGPT) 6 U/L Below low normal [facility] (Ammir [place] Physician) AST 9 U/L Below low normal [facility] (Ammir [place] Physician) EGFR NON AFR 56 Above high normal [facility] SOMALI mL/min/1 (Ammir .73m2 [place] Physician) EGFR AFR 68 Above high normal [facility] SOMALI mL/min/1 (Ammir .73m2 [place] Physician) ID Date Data Source [id number] 06/24/2016 12:00:00 AM EDT [facility] (Ammir [place] Physician) Name Value Range Interpretation Description Data Sup porting Code Source(s) Document(s ) WBC 8.07 Normal (applies to [facility] 10(3)/uL non-numeric (Ammir results) [place] Physician) RBC 4.73 Normal (applies to [facility] 10(6)/uL non-numeric (Ammir results) [place] Physician) Hemoglobin 14.9 g/dL Normal (applies to [facility] [Mass/volume] non-numeric (Ammir in Mixed results) [place] venous blood Physician) by Oximetry Hematocrit 43.8 % Normal (applies to [facility] [Pure volume non-numeric (Ammir fraction] of results) [place] Blood by Physician) Automated count MCV 92.6 fL Normal (applies to [facility] non-numeric (Ammir results) [place] Physician) MCH 31.5 pg Normal (applies to [facility] non-numeric (Ammir results) [place] Physician) MCHC 34.0 g/dL Normal (applies to [facility] non-numeric (Ammir results) [place] Physician) PLT 230 Normal (applies to [facility] 10(3)/uL non-numeric (Ammir results) [place] Physician) RDWSD 43.5 fL Normal (applies to [facility] non-numeric (Ammir results) [place] Physician) RDWCV 12.8 % Normal (applies to [facility] non-numeric (Ammir results) [place] Physician) MPV 12.3 fL Normal (applies to [facility] non-numeric (Ammir results) [place] Physician) NE# 4.39 Normal (applies to [facility] 10(3)/uL non-numeric (Ammir results) [place] Physician) LY# 2.69 Normal (applies to [facility] 10(3)/uL non-numeric (Ammir results) [place] Physician) MO# 0.88 Normal (applies to [facility] 10(3)/uL non-numeric (Ammir results) [place] Physician) EO# 0.07 Normal (applies to [facility] 10(3)/uL non-numeric (Ammir results) [place] Physician) BA# 0.02 Normal (applies to [facility] 10(3)/uL non-numeric (Ammir results) [place] Physician) IG# 0.02 Normal (applies to [facility] 10(3)/uL non-numeric (Ammir results) [place] Physician) NE% 54.5 % Normal (applies to [facility] non-numeric (Ammir results) [place] Physician) LY% 33.3 % Normal (applies to [facility] non-numeric (Ammir results) [place] Physician) MO% 10.9 % Normal (applies to [facility] non-numeric (Ammir results) [place] Physician) EO% 0.9 % Normal (applies to [facility] non-numeric (Ammir results) [facility] Physician) BA% 0.2 % Normal (applies to [facility] non-numeric (Ammir results) [facility] Physician) IG% 0.2 % Normal (applies to [facility] non-numeric (Ammir results) [facility] Physician) ID Date Data Source [id number] 06/24/2016 12:00:00 AM EDT [facility] (Ammir [facility] Phys[facility]) Name Value Range Interpretation Code Description Data Supporting Source(s) Document(s ) GLYCOMARK 11.49 Normal (applies to [facility] (Amm ir ug/mL non-numeric [place] results) Physician) ID Date Data Source [id number] 06/24/2016 12:00:00 AM EDT [facility] (Ammir [place] Physician) Name Value Range Interpretation Description Data Sup porting Code Source(s) Document(s ) Hemoglobin A1c 5.2 % Normal (applies to [facility] (Ammir in Blood non-numeric [place] results) Physician) ID Date Data Source [id number] 06/24/2016 12:00:00 AM EDT [facility] (Ammir [facility] Phys[facility]) Name Value Range Interpretation Description Data Sup porting Code Source(s) Document(s ) HEPATITIS BE NONREACTIVE Normal (applies [facility] AG to non-numeric (Ammir results) [facility] Physician) ID Date Data Source [id number] 06/24/2016 12:00:00 AM EDT [facility] (Ammir [facility] Phys[facility]) Name Value Range Interpretation Description Data Sup porting Code Source(s) Document(s ) HEPATITIS B <3.10 Normal (applies to [facility] (A mmir SURFACE AB (NONREACT non-numeric [facility] JEREMIE) results) Physician) ID Date Data Source [id number] 06/24/2016 12:00:00 AM EDT [facility] (Ammir [facility] Phys[facility]) Name Value Range Interpretation Description Data Sup porting Code Source(s) Document(s ) HEPATITIS B NONREACTIVE Normal (applies [facility] CORE AB QL to non-numeric (Ammir results) [facility] Physician) ID Date Data Source [id number] 06/24/2016 12:00:00 AM EDT [facility] (Ammir [facility] Physician) Name Value Range Interpretation Description Data Sup porting Code Source(s) Document(s ) HEPATITIS C NONREACTIVE Normal (applies [facility] AB QL to non-numeric (Ammir results) [facility] Physician) ID Date Data Source [id number] 06/24/2016 12:00:00 AM EDT [facility] (Ammir [facility] Physician) Name Value Range Interpretation Code Description Data Ning rce(s) Supporting Document(s ) HBeAB NEGATIVE Normal (applies to [facility] (Amm ir non-numeric results) [facility] Physician) ID Date Data Source [id number] 06/24/2016 12:00:00 AM EDT [facility] (Ammir [facility] Physician) Name Value Range Interpretation Description Data Sup porting Code Source(s) Document(s ) HEPATITIS BS NONREACTIVE Normal (applies [facility] AG SCREEN to non-numeric (Ammir results) [facility] Physician) ID Date Data Source [id number] 06/24/2016 12:00:00 AM EDT [facility] (Ammir [facility] Physician) Name Value Range Interpretation Description Data Sup porting Code Source(s) Document(s ) HEPATITIS A REACTIVE Normal (applies to [facility] (A mmir AB non-numeric [facility] results) Physician) ID Date Data Source [id number] 06/24/2016 12:00:00 AM EDT [facility] (Ammir [facility] Phys[facility]) Name Value Range Interpretation Description Data Sup porting Code Source(s) Document(s ) T4 FREE, 1.65 Normal (applies to [facility] THYROXINE ng/dL non-numeric (Ammir results) [facility] Physician) TSH,3RD 3.007 Normal (applies to [facility] GENERATION uIU/mL non-numeric (Ammir results) [facility] Physician) ID Date Data Source [id number] 06/24/2016 12:00:00 AM EDT [facility] (Ammir [facility] Physician) Name Value Range Interpretation Description Data Sup porting Code Source(s) Document(s ) FOLATE SERUM 21.6 Above high normal [facility] (A mmir ng/mL [facility] Physician) VITAMIN B12 1124 Above high normal [facility] (Am maria guadalupe pg/mL [facility] Physician) ID Date Data Source [id number] 06/24/2016 12:00:00 AM EDT [facility] (Ammir [facility] Physician) Name Value Range Interpretation Description Data Sup porting Code Source(s) Document(s ) VITAMIN D 29.8 Normal (applies to [facility] (Amm ir 1.25 pg/mL non-numeric [place] results) Physician) ID Date Data Source [id number] 03/24/2016 12:00:00 AM EST [facility] (Ammir [facility] Physician) Name Value Range Interpretation Code Description Data Supporting Source(s) Document(s ) MISSING Normal (applies to [facility] (Amm ir DIAGNOSIS non-numeric [place] results) Physician) ID Date Data Source [id number] 03/24/2016 12:00:00 AM EST [facility] (Ammir [facility] Physician) Name Value Range Interpretation Description Data Sup porting Code Source(s) Document(s ) VITAMIN D-25 19.3 Below low normal [facility] (Am maria guadalupe HYDROXY ng/mL [facility] Physician) ID Date Data Source [id number] 03/24/2016 12:00:00 AM EST [facility] (Ammir [facility] Physician) Name Value Range Interpretation Description Data Sup porting Code Source(s) Document(s ) Thyroxine 1.25 Above high normal [facility] (Ammi r (T4) free ng/dL [place] [Mass/volume] Physician) in Serum or Plasma ID Date Data Source [id number] 03/24/2016 12:00:00 AM EST [facility] (Ammir [facility] Physician) Name Value Range Interpretation Description Data Sup porting Code Source(s) Document(s ) Folate 13.2 ng/mL Normal (applies to [facility] (Am maria guadalupe [Interpreta non-numeric [place] tion] in results) Physician) Blood ID Date Data Source [id number] 03/24/2016 12:00:00 AM EST [facility] (Ammir [facility] Physician) Name Value Range Interpretation Description Data Sup porting Code Source(s) Document(s ) VITAMIN B12 713 pg/mL Normal (applies to [facility] (A mmir non-numeric [place] results) Physician) ID Date Data Source [id number] 03/24/2016 12:00:00 AM EST [facility] (Ammir [facility] Physician) Name Value Range Interpretation Description Data Sup porting Code Source(s) Document(s ) TSH 3RD 2.085 Normal (applies to [facility] GENERATION uIU/mL non-numeric (Ammir results) [facility] Physician) ID Date Data Source [id number] 03/24/2016 12:00:00 AM EST [facility] (Ammir [facility] Physician) Name Value Range Interpretation Code Description Data Ning rce(s) Supporting Document(s ) T3 UPTAKE 43.0 % Normal (applies to [facility] (Amm ir non-numeric results) [facility] Physician) ID Date Data Source [id number] 03/24/2016 12:00:00 AM EST [facility] (Ammir [facility] Phys[facility]) Name Value Range Interpretation Description Data Sup porting Code Source(s) Document(s ) Hemoglobin 5.3 % Normal (applies to [facility] (Am maria guadalupe A1c/Hemoglobin. non-numeric [place] total in Blood results) Physician) ID Date Data Source [id number] 03/24/2016 12:00:00 AM EST [facility] (Ammir [facility] Physician) Name Value Range Interpretation Description Data Sup porting Code Source(s) Document(s ) Cholesterol 227 Above high normal [facility] [Moles/volume] mg/dL (Ammir in Pericardial [place] fluid Physician) TRIGLYCERIDES 138 Normal (applies [facility] mg/dL to non-numeric (Ammir results) [facility] Physician) HDL CHOLESTEROL 76 mg/dL Normal (applies [facility] to non-numeric (Ammir results) [facility] Physician) LDL/HDL RATIO 1.62 Normal (applies [facility] to non-numeric (Ammir results) [facility] Physician) Cholesterol in 123 Above high normal [facility] LDL mg/dL (Ammir [Mass/volume] in [place] Serum or Plasma Physician) by Direct assay Cholesterol in 28 mg/dL Normal (applies [facility] LDL to non-numeric (Ammir [Mass/volume] in results) [place] Serum or Plasma Physician) by Direct assay CHOLESTEROL/HDL 2.99 Normal (applies [facility] RATIO to non-numeric (Ammir results) [place] Physician) NON-HDL 151 Normal (applies [facility] CHOLESTEROL mg/dL to non-numeric (Ammir results) [place] Physician) ID Date Data Source [id number] 03/24/2016 12:00:00 AM EST [facility] (Ammir [facility] Physician) Name Value Range Interpretation Description Data Sup porting Code Source(s) Document(s ) Sodium 139 Normal (applies [facility] [Moles/volume] mmol/L to non-numeric (Ammir in Serum, Plasma results) [place] or Blood Physician) Potassium 4.3 Normal (applies [facility] [Mass/volume] in mmol/L to non-numeric (Ammir Blood results) [facility] Physician) Chloride 104 Normal (applies [facility] [Moles/volume] mmol/L to non-numeric (Ammir in Serum, Plasma results) [place] or Blood Physician) Carbon dioxide 21.0 Normal (applies [facility] [VFr/PPres] in mEq/L to non-numeric (Ammir Gas delivery results) [place] system Physician) Glucose 86 mg/dL Normal (applies [facility] [Mass/volume] in to non-numeric (Ammir Urine collected results) [place] for unspecified Physician) duration BUN 14 mg/dl Normal (applies [facility] to non-numeric (Ammir results) [place] Physician) CREATININE SERUM 0.82 Normal (applies [facility] mg/dL to non-numeric (Ammir results) [place] Physician) BUN/CREATININE 17 Ratio Normal (applies [facility] RATIO to non-numeric (Ammir results) [place] Physician) BILIRUBIN,Total 0.9 Normal (applies [facility] mg/dl to non-numeric (Ammir results) [facility] Physician) Calcium 10.1 Normal (applies [facility] [Moles/volume] mg/dL to non-numeric (Ammir in Urine results) [place] collected for Physician) unspecified duration PROTEIN TOTAL 7.2 g/dL Normal (applies [facility] to non-numeric (Ammir results) [facility] Physician) Microalbumin 4.4 g/dL Normal (applies [facility] [Mass/time] in to non-numeric (Ammir Urine collected results) [place] for unspecified Physician) duration ALK.PHOSPHATASE 67 U/L Normal (applies [facility] to non-numeric (Ammir results) [place] Physician) ALT (SGPT) 14 U/L Normal (applies [facility] to non-numeric (Ammir results) [place] Physician) AST (SGOT) 26 U/L Normal (applies [facility] to non-numeric (Ammir results) [place] Physician) Globulin 2.8 g/dL Normal (applies [facility] [Mass/time] in to non-numeric (Ammir 24 hour Urine results) [place] Physician) A/G RATIO 1.6 Normal (applies [facility] Ratio to non-numeric (Ammir results) [place] Physician) GLOMERULAR FILT. 71 Normal (applies [facility] RATE mL/min to non-numeric (Ammir results) [place] Physician) ID Date Data Source [id number] 03/24/2016 12:00:00 AM EST [facility] (Ammir [facility] Physician) Name Value Range Interpretation Description Data Sup porting Code Source(s) Document(s ) WBC 8.4 Normal (applies [facility] 10^3/uL to non-numeric (Ammir results) [facility] Physician) RBC 4.56 Normal (applies [facility] 10^6/uL to non-numeric (Ammir results) [place] Physician) Hemoglobin 14.4 g/dL Normal (applies [facility] [Mass/volume] to non-numeric (Ammir in Mixed venous results) [place] blood by Physician) Oximetry Hematocrit 44 % Normal (applies [facility] [Pure volume to non-numeric (Ammir fraction] of results) [place] Blood by Physician) Automated count MCV 95 Normal (applies [facility] to non-numeric (Ammir results) [place] Physician) MCH 31.6 pg Normal (applies [facility] to non-numeric (Ammir results) [place] Physician) MCHC 33.1 g/dL Normal (applies [facility] to non-numeric (Ammir results) [place] Physician) RDW 13.8 % Normal (applies [facility] to non-numeric (Ammir results) [place] Physician) PLATELET 222 Normal (applies [facility] 10^3/uL to non-numeric (Ammir results) [place] Physician) MPV 10.63 fL Normal (applies [facility] to non-numeric (Ammir results) [place] Physician) SEGMENTED % 58.7 Normal (applies [facility] to non-numeric (Ammir results) [place] Physician) SEGMENTED # 4.9 Normal (applies [facility] to non-numeric (Ammir results) [place] Physician) LYMPHOCYTES % 30.33 Normal (applies [facility] to non-numeric (Ammir results) [place] Physician) LYMPHOCYTES # 2.5 Normal (applies [facility] 10^3/uL to non-numeric (Ammir results) [place] Physician) MONOCYTES % 9.6 % Normal (applies [facility] to non-numeric (Ammir results) [place] Physician) MONOCYTES # 0.8 Normal (applies [facility] 10^3/uL to non-numeric (Ammir results) [place] Physician) EOSINOPHILS % 0.94 % Normal (applies [facility] to non-numeric (Ammir results) [place] Physician) EOSINOPHILS # 0.08 Normal (applies [facility] 10^3/uL to non-numeric (Ammir results) [place] Physician) BASOPHILS % 0.47 % Normal (applies [facility] to non-numeric (Ammir results) [place] Physician) BASOPHILS # 0.04 Normal (applies [facility] 10^3/uL to non-numeric (Ammir results) [facility] Physician) ID Date Data Source [id number] 03/24/2016 12:00:00 AM EST [facility] (Ammir [facility] Physician) Name Value Range Interpretation Code Description Data Supporting Source(s) Document(s ) MISSING Normal (applies to [facility] (Amm ir DIAGNOSIS non-numeric [place] results) Physician) ID Date Data Source [id number] 03/24/2016 12:00:00 AM EST [facility] (Ammir [facility] Physician) Name Value Range Interpretation Description Data Sup porting Code Source(s) Document(s ) VITAMIN D-25 19.3 Below low normal [facility] (Am maria guadalupe HYDROXY ng/mL [facility] Physician) ID Date Data Source [id number] 03/24/2016 12:00:00 AM EST [facility] (Ammir [facility] Physician) Name Value Range Interpretation Description Data Sup porting Code Source(s) Document(s ) Thyroxine 1.25 Above high normal [facility] (Ammi r (T4) free ng/dL [place] [Mass/volume] Physician) in Serum or Plasma ID Date Data Source [id number] 03/24/2016 12:00:00 AM EST [facility] (Ammir [facility] Physician) Name Value Range Interpretation Description Data Sup porting Code Source(s) Document(s ) Folate 13.2 ng/mL Normal (applies to [facility] (Am maria guadalupe [Interpreta non-numeric [place] tion] in results) Physician) Blood ID Date Data Source [id number] 03/24/2016 12:00:00 AM EST [facility] (Ammir [facility] Physician) Name Value Range Interpretation Description Data Sup porting Code Source(s) Document(s ) VITAMIN B12 713 pg/mL Normal (applies to [facility] (A mmir non-numeric [place] results) Physician) ID Date Data Source [id number] 03/24/2016 12:00:00 AM EST [facility] (Ammir [facility] Physician) Name Value Range Interpretation Description Data Sup porting Code Source(s) Document(s ) TSH 3RD 2.085 Normal (applies to [facility] GENERATION uIU/mL non-numeric (Ammir results) [place] Physician) ID Date Data Source [id number] 03/24/2016 12:00:00 AM EST [facility] (Ammir [place] Physician) Name Value Range Interpretation Code Description Data Ning rce(s) Supporting Document(s ) T3 UPTAKE 43.0 % Normal (applies to [facility] (Amm ir non-numeric results) [place] Physician) ID Date Data Source [id number] 03/24/2016 12:00:00 AM EST [facility] (Ammir [place] Physician) Name Value Range Interpretation Description Data Sup porting Code Source(s) Document(s ) Hemoglobin 5.3 % Normal (applies to [facility] (Am maria guadalupe A1c/Hemoglobin. non-numeric [place] total in Blood results) Physician) ID Date Data Source [id number] 03/24/2016 12:00:00 AM EST [facility] (Ammir [place] Physician) Name Value Range Interpretation Description Data Sup porting Code Source(s) Document(s ) Cholesterol 227 Above high normal [facility] [Moles/volume] mg/dL (Ammir in Pericardial [place] fluid Physician) TRIGLYCERIDES 138 Normal (applies [facility] mg/dL to non-numeric (Ammir results) [place] Physician) HDL CHOLESTEROL 76 mg/dL Normal (applies [facility] to non-numeric (Ammir results) [place] Physician) LDL/HDL RATIO 1.62 Normal (applies [facility] to non-numeric (Ammir results) [place] Physician) Cholesterol in 123 Above high normal [facility] LDL mg/dL (Ammir [Mass/volume] in [place] Serum or Plasma Physician) by Direct assay Cholesterol in 28 mg/dL Normal (applies [facility] LDL to non-numeric (Ammir [Mass/volume] in results) [place] Serum or Plasma Physician) by Direct assay CHOLESTEROL/HDL 2.99 Normal (applies [facility] RATIO to non-numeric (Ammir results) [place] Physician) NON-HDL 151 Normal (applies [facility] CHOLESTEROL mg/dL to non-numeric (Ammir results) [place] Physician) ID Date Data Source [id number] 03/24/2016 12:00:00 AM EST [facility] (Ammir [place] Physician) Name Value Range Interpretation Description Data Sup porting Code Source(s) Document(s ) Sodium 139 Normal (applies [facility] [Moles/volume] mmol/L to non-numeric (Ammir in Serum, Plasma results) [place] or Blood Physician) Potassium 4.3 Normal (applies [facility] [Mass/volume] in mmol/L to non-numeric (Ammir Blood results) [place] Physician) Chloride 104 Normal (applies [facility] [Moles/volume] mmol/L to non-numeric (Ammir in Serum, Plasma results) [place] or Blood Physician) Carbon dioxide 21.0 Normal (applies [facility] [VFr/PPres] in mEq/L to non-numeric (Ammir Gas delivery results) [place] system Physician) Glucose 86 mg/dL Normal (applies [facility] [Mass/volume] in to non-numeric (Ammir Urine collected results) [place] for unspecified Physician) duration BUN 14 mg/dl Normal (applies [facility] to non-numeric (Ammir results) [place] Physician) CREATININE SERUM 0.82 Normal (applies [facility] mg/dL to non-numeric (Ammir results) [place] Physician) BUN/CREATININE 17 Ratio Normal (applies [facility] RATIO to non-numeric (Ammir results) [place] Physician) BILIRUBIN,Total 0.9 Normal (applies [facility] mg/dl to non-numeric (Ammir results) [place] Physician) Calcium 10.1 Normal (applies [facility] [Moles/volume] mg/dL to non-numeric (Ammir in Urine results) [place] collected for Physician) unspecified duration PROTEIN TOTAL 7.2 g/dL Normal (applies [facility] to non-numeric (Ammir results) [place] Physician) Microalbumin 4.4 g/dL Normal (applies [facility] [Mass/time] in to non-numeric (Ammir Urine collected results) [place] for unspecified Physician) duration ALK.PHOSPHATASE 67 U/L Normal (applies [facility] to non-numeric (Ammir results) [place] Physician) ALT (SGPT) 14 U/L Normal (applies [facility] to non-numeric (Ammir results) [place] Physician) AST (SGOT) 26 U/L Normal (applies [facility] to non-numeric (Ammir results) [place] Physician) Globulin 2.8 g/dL Normal (applies [facility] [Mass/time] in to non-numeric (Ammir 24 hour Urine results) [place] Physician) A/G RATIO 1.6 Normal (applies [facility] Ratio to non-numeric (Ammir results) [place] Physician) GLOMERULAR FILT. 71 Normal (applies [facility] RATE mL/min to non-numeric (Ammir results) [place] Physician) ID Date Data Source [id number] 03/24/2016 12:00:00 AM EST [facility] (Ammir [place] Physician) Name Value Range Interpretation Description Data Sup porting Code Source(s) Document(s ) WBC 8.4 Normal (applies [facility] 10^3/uL to non-numeric (Ammir results) [place] Physician) RBC 4.56 Normal (applies [facility] 10^6/uL to non-numeric (Ammir results) [place] Physician) Hemoglobin 14.4 g/dL Normal (applies [facility] [Mass/volume] to non-numeric (Ammir in Mixed venous results) [place] blood by Physician) Oximetry Hematocrit 44 % Normal (applies [facility] [Pure volume to non-numeric (Ammir fraction] of results) [place] Blood by Physician) Automated count MCV 95 Normal (applies [facility] to non-numeric (Ammir results) [place] Physician) MCH 31.6 pg Normal (applies [facility] to non-numeric (Ammir results) [place] Physician) MCHC 33.1 g/dL Normal (applies [facility] to non-numeric (Ammir results) [place] Physician) RDW 13.8 % Normal (applies [facility] to non-numeric (Ammir results) [place] Physician) PLATELET 222 Normal (applies [facility] 10^3/uL to non-numeric (Ammir results) [place] Physician) MPV 10.63 fL Normal (applies [facility] to non-numeric (Ammir results) [place] Physician) SEGMENTED % 58.7 Normal (applies [facility] to non-numeric (Ammir results) [place] Physician) SEGMENTED # 4.9 Normal (applies [facility] to non-numeric (Ammir results) [place] Physician) LYMPHOCYTES % 30.33 Normal (applies [facility] to non-numeric (Ammir results) [place] Physician) LYMPHOCYTES # 2.5 Normal (applies [facility] 10^3/uL to non-numeric (Ammir results) [place] Physician) MONOCYTES % 9.6 % Normal (applies [facility] to non-numeric (Ammir results) [place] Physician) MONOCYTES # 0.8 Normal (applies [facility] 10^3/uL to non-numeric (Ammir results) [place] Physician) EOSINOPHILS % 0.94 % Normal (applies [facility] to non-numeric (Ammir results) [place] Physician) EOSINOPHILS # 0.08 Normal (applies [facility] 10^3/uL to non-numeric (Ammir results) [place] Physician) BASOPHILS % 0.47 % Normal (applies [facility] to non-numeric (Ammir results) [place] Physician) BASOPHILS # 0.04 Normal (applies [facility] 10^3/uL to non-numeric (Ammir results) [place] Physician) ID Date Data Source [id number] 03/24/2016 12:00:00 AM EST [facility] (Ammir [place] Physician) Name Value Range Interpretation Code Description Data Supporting Source(s) Document(s ) MISSING Normal (applies to [facility] (Amm ir DIAGNOSIS non-numeric [place] results) Physician) ID Date Data Source [id number] 03/24/2016 12:00:00 AM EST [facility] (Ammir [place] Physician) Name Value Range Interpretation Description Data Sup porting Code Source(s) Document(s ) VITAMIN D-25 19.3 Below low normal [facility] (Am maria guadalupe HYDROXY ng/mL [facility] Physician) ID Date Data Source [id number] 03/24/2016 12:00:00 AM EST [facility] (Ammir [place] Physician) Name Value Range Interpretation Description Data Sup porting Code Source(s) Document(s ) Thyroxine 1.25 Above high normal [facility] (Ammi r (T4) free ng/dL [place] [Mass/volume] Physician) in Serum or Plasma ID Date Data Source [id number] 03/24/2016 12:00:00 AM EST [facility] (Ammir [place] Physician) Name Value Range Interpretation Description Data Sup porting Code Source(s) Document(s ) Folate 13.2 ng/mL Normal (applies to [facility] (Am maria guadalupe [Interpreta non-numeric [place] tion] in results) Physician) Blood ID Date Data Source [id number] 03/24/2016 12:00:00 AM EST [facility] (Ammir [place] Physician) Name Value Range Interpretation Description Data Sup porting Code Source(s) Document(s ) VITAMIN B12 713 pg/mL Normal (applies to [facility] (A mmir non-numeric [place] results) Physician) ID Date Data Source [id number] 03/24/2016 12:00:00 AM EST [facility] (Ammir [place] Physician) Name Value Range Interpretation Description Data Sup porting Code Source(s) Document(s ) TSH 3RD 2.085 Normal (applies to [facility] GENERATION uIU/mL non-numeric (Ammir results) [place] Physician) ID Date Data Source [id number] 03/24/2016 12:00:00 AM EST [facility] (Ammir [place] Physician) Name Value Range Interpretation Code Description Data Ning rce(s) Supporting Document(s ) T3 UPTAKE 43.0 % Normal (applies to [facility] (Amm ir non-numeric results) [place] Physician) ID Date Data Source [id number] 03/24/2016 12:00:00 AM EST [facility] (Ammir [place] Physician) Name Value Range Interpretation Description Data Sup porting Code Source(s) Document(s ) Hemoglobin 5.3 % Normal (applies to [facility] (Am maria guadalupe A1c/Hemoglobin. non-numeric [place] total in Blood results) Physician) ID Date Data Source [id number] 03/24/2016 12:00:00 AM EST [facility] (Ammir [place] Physician) Name Value Range Interpretation Description Data Sup porting Code Source(s) Document(s ) Cholesterol 227 Above high normal [facility] [Moles/volume] mg/dL (Ammir in Pericardial [place] fluid Physician) TRIGLYCERIDES 138 Normal (applies [facility] mg/dL to non-numeric (Ammir results) [place] Physician) HDL CHOLESTEROL 76 mg/dL Normal (applies [facility] to non-numeric (Ammir results) [place] Physician) LDL/HDL RATIO 1.62 Normal (applies [facility] to non-numeric (Ammir results) [place] Physician) Cholesterol in 123 Above high normal [facility] LDL mg/dL (Ammir [Mass/volume] in [place] Serum or Plasma Physician) by Direct assay Cholesterol in 28 mg/dL Normal (applies [facility] LDL to non-numeric (Ammir [Mass/volume] in results) [place] Serum or Plasma Physician) by Direct assay CHOLESTEROL/HDL 2.99 Normal (applies [facility] RATIO to non-numeric (Ammir results) [place] Physician) NON-HDL 151 Normal (applies [facility] CHOLESTEROL mg/dL to non-numeric (Ammir results) [place] Physician) ID Date Data Source [id number] 03/24/2016 12:00:00 AM EST [facility] (Ammir [place] Physician) Name Value Range Interpretation Description Data Sup porting Code Source(s) Document(s ) Sodium 139 Normal (applies [facility] [Moles/volume] mmol/L to non-numeric (Ammir in Serum, Plasma results) [place] or Blood Physician) Potassium 4.3 Normal (applies [facility] [Mass/volume] in mmol/L to non-numeric (Ammir Blood results) [place] Physician) Chloride 104 Normal (applies [facility] [Moles/volume] mmol/L to non-numeric (Ammir in Serum, Plasma results) [place] or Blood Physician) Carbon dioxide 21.0 Normal (applies [facility] [VFr/PPres] in mEq/L to non-numeric (Ammir Gas delivery results) [place] system Physician) Glucose 86 mg/dL Normal (applies [facility] [Mass/volume] in to non-numeric (Ammir Urine collected results) [place] for unspecified Physician) duration BUN 14 mg/dl Normal (applies [facility] to non-numeric (Ammir results) [place] Physician) CREATININE SERUM 0.82 Normal (applies [facility] mg/dL to non-numeric (Ammir results) [place] Physician) BUN/CREATININE 17 Ratio Normal (applies [facility] RATIO to non-numeric (Ammir results) [place] Physician) BILIRUBIN,Total 0.9 Normal (applies [facility] mg/dl to non-numeric (Ammir results) [place] Physician) Calcium 10.1 Normal (applies [facility] [Moles/volume] mg/dL to non-numeric (Ammir in Urine results) [place] collected for Physician) unspecified duration PROTEIN TOTAL 7.2 g/dL Normal (applies [facility] to non-numeric (Ammir results) [place] Physician) Microalbumin 4.4 g/dL Normal (applies [facility] [Mass/time] in to non-numeric (Ammir Urine collected results) [place] for unspecified Physician) duration ALK.PHOSPHATASE 67 U/L Normal (applies [facility] to non-numeric (Ammir results) [place] Physician) ALT (SGPT) 14 U/L Normal (applies [facility] to non-numeric (Ammir results) [place] Physician) AST (SGOT) 26 U/L Normal (applies [facility] to non-numeric (Ammir results) [place] Physician) Globulin 2.8 g/dL Normal (applies [facility] [Mass/time] in to non-numeric (Ammir 24 hour Urine results) [place] Physician) A/G RATIO 1.6 Normal (applies [facility] Ratio to non-numeric (Ammir results) [place] Physician) GLOMERULAR FILT. 71 Normal (applies [facility] RATE mL/min to non-numeric (Ammir results) [place] Physician) ID Date Data Source [id number] 03/24/2016 12:00:00 AM EST [facility] (Ammir [place] Physician) Name Value Range Interpretation Description Data Sup porting Code Source(s) Document(s ) WBC 8.4 Normal (applies [facility] 10^3/uL to non-numeric (Ammir results) [place] Physician) RBC 4.56 Normal (applies [facility] 10^6/uL to non-numeric (Ammir results) [place] Physician) Hemoglobin 14.4 g/dL Normal (applies [facility] [Mass/volume] to non-numeric (Ammir in Mixed venous results) [place] blood by Physician) Oximetry Hematocrit 44 % Normal (applies [facility] [Pure volume to non-numeric (Ammir fraction] of results) [place] Blood by Physician) Automated count MCV 95 Normal (applies [facility] to non-numeric (Ammir results) [place] Physician) MCH 31.6 pg Normal (applies [facility] to non-numeric (Ammir results) [place] Physician) MCHC 33.1 g/dL Normal (applies [facility] to non-numeric (Ammir results) [place] Physician) RDW 13.8 % Normal (applies [facility] to non-numeric (Ammir results) [place] Physician) PLATELET 222 Normal (applies [facility] 10^3/uL to non-numeric (Ammir results) [place] Physician) MPV 10.63 fL Normal (applies [facility] to non-numeric (Ammir results) [place] Physician) SEGMENTED % 58.7 Normal (applies [facility] to non-numeric (Ammir results) [place] Physician) SEGMENTED # 4.9 Normal (applies [facility] to non-numeric (Ammir results) [place] Physician) LYMPHOCYTES % 30.33 Normal (applies [facility] to non-numeric (Ammir results) [place] Physician) LYMPHOCYTES # 2.5 Normal (applies [facility] 10^3/uL to non-numeric (Ammir results) [place] Physician) MONOCYTES % 9.6 % Normal (applies [facility] to non-numeric (Ammir results) [place] Physician) MONOCYTES # 0.8 Normal (applies [facility] 10^3/uL to non-numeric (Ammir results) [place] Physician) EOSINOPHILS % 0.94 % Normal (applies [facility] to non-numeric (Ammir results) [place] Physician) EOSINOPHILS # 0.08 Normal (applies [facility] 10^3/uL to non-numeric (Ammir results) [place] Physician) BASOPHILS % 0.47 % Normal (applies [facility] to non-numeric (Ammir results) [place] Physician) BASOPHILS # 0.04 Normal (applies [facility] 10^3/uL to non-numeric (Ammir results) [place] Physician) ID Date Data Source [id number] 03/24/2016 12:00:00 AM EST [facility] (Ammir [facility] Physician) Name Value Range Interpretation Code Description Data Supporting Source(s) Document(s ) MISSING Normal (applies to [facility] (Amm ir DIAGNOSIS non-numeric [place] results) Physician) ID Date Data Source [id number] 03/24/2016 12:00:00 AM EST [facility] (Ammir [facility] Physician) Name Value Range Interpretation Description Data Sup porting Code Source(s) Document(s ) VITAMIN D-25 19.3 Below low normal [facility] (Am maria guadalupe HYDROXY ng/mL [place] Physician) ID Date Data Source [id number] 03/24/2016 12:00:00 AM EST [facility] (Ammir [place] Physician) Name Value Range Interpretation Description Data Sup porting Code Source(s) Document(s ) Thyroxine 1.25 Above high normal [facility] (Ammi r (T4) free ng/dL [place] [Mass/volume] Physician) in Serum or Plasma ID Date Data Source [id number] 03/24/2016 12:00:00 AM EST [facility] (Ammir [place] Physician) Name Value Range Interpretation Description Data Sup porting Code Source(s) Document(s ) Folate 13.2 ng/mL Normal (applies to [facility] (Am maria guadalupe [Interpreta non-numeric [place] tion] in results) Physician) Blood ID Date Data Source [id number] 03/24/2016 12:00:00 AM EST [facility] (Ammir [place] Physician) Name Value Range Interpretation Description Data Sup porting Code Source(s) Document(s ) VITAMIN B12 713 pg/mL Normal (applies to [facility] (A mmir non-numeric [place] results) Physician) ID Date Data Source [id number] 03/24/2016 12:00:00 AM EST [facility] (Ammir [place] Physician) Name Value Range Interpretation Description Data Sup porting Code Source(s) Document(s ) TSH 3RD 2.085 Normal (applies to [facility] GENERATION uIU/mL non-numeric (Ammir results) [place] Physician) ID Date Data Source [id number] 03/24/2016 12:00:00 AM EST [facility] (Ammir [place] Physician) Name Value Range Interpretation Code Description Data Ning rce(s) Supporting Document(s ) T3 UPTAKE 43.0 % Normal (applies to [facility] (Amm ir non-numeric results) [place] Physician) ID Date Data Source [id number] 03/24/2016 12:00:00 AM EST [facility] (Ammir [place] Physician) Name Value Range Interpretation Description Data Sup porting Code Source(s) Document(s ) Hemoglobin 5.3 % Normal (applies to [facility] (Am maria guadalupe A1c/Hemoglobin. non-numeric [place] total in Blood results) Physician) ID Date Data Source [id number] 03/24/2016 12:00:00 AM EST [facility] (Ammir [place] Physician) Name Value Range Interpretation Description Data Sup porting Code Source(s) Document(s ) Cholesterol 227 Above high normal [facility] [Moles/volume] mg/dL (Ammir in Pericardial [place] fluid Physician) TRIGLYCERIDES 138 Normal (applies [facility] mg/dL to non-numeric (Ammir results) [place] Physician) HDL CHOLESTEROL 76 mg/dL Normal (applies [facility] to non-numeric (Ammir results) [place] Physician) LDL/HDL RATIO 1.62 Normal (applies [facility] to non-numeric (Ammir results) [place] Physician) Cholesterol in 123 Above high normal [facility] LDL mg/dL (Ammir [Mass/volume] in [place] Serum or Plasma Physician) by Direct assay Cholesterol in 28 mg/dL Normal (applies [facility] LDL to non-numeric (Ammir [Mass/volume] in results) [place] Serum or Plasma Physician) by Direct assay CHOLESTEROL/HDL 2.99 Normal (applies [facility] RATIO to non-numeric (Ammir results) [place] Physician) NON-HDL 151 Normal (applies [facility] CHOLESTEROL mg/dL to non-numeric (Ammir results) [place] Physician) ID Date Data Source [id number] 03/24/2016 12:00:00 AM EST [facility] (Ammir [place] Physician) Name Value Range Interpretation Description Data Sup porting Code Source(s) Document(s ) Sodium 139 Normal (applies [facility] [Moles/volume] mmol/L to non-numeric (Ammir in Serum, Plasma results) [place] or Blood Physician) Potassium 4.3 Normal (applies [facility] [Mass/volume] in mmol/L to non-numeric (Ammir Blood results) [place] Physician) Chloride 104 Normal (applies [facility] [Moles/volume] mmol/L to non-numeric (Ammir in Serum, Plasma results) [place] or Blood Physician) Carbon dioxide 21.0 Normal (applies [facility] [VFr/PPres] in mEq/L to non-numeric (Ammir Gas delivery results) [place] system Physician) Glucose 86 mg/dL Normal (applies [facility] [Mass/volume] in to non-numeric (Ammir Urine collected results) [place] for unspecified Physician) duration BUN 14 mg/dl Normal (applies [facility] to non-numeric (Ammir results) [place] Physician) CREATININE SERUM 0.82 Normal (applies [facility] mg/dL to non-numeric (Ammir results) [place] Physician) BUN/CREATININE 17 Ratio Normal (applies [facility] RATIO to non-numeric (Ammir results) [place] Physician) BILIRUBIN,Total 0.9 Normal (applies [facility] mg/dl to non-numeric (Ammir results) [place] Physician) Calcium 10.1 Normal (applies [facility] [Moles/volume] mg/dL to non-numeric (Ammir in Urine results) [place] collected for Physician) unspecified duration PROTEIN TOTAL 7.2 g/dL Normal (applies [facility] to non-numeric (Ammir results) [place] Physician) Microalbumin 4.4 g/dL Normal (applies [facility] [Mass/time] in to non-numeric (Ammir Urine collected results) [place] for unspecified Physician) duration ALK.PHOSPHATASE 67 U/L Normal (applies [facility] to non-numeric (Ammir results) [place] Physician) ALT (SGPT) 14 U/L Normal (applies [facility] to non-numeric (Ammir results) [place] Physician) AST (SGOT) 26 U/L Normal (applies [facility] to non-numeric (Ammir results) [place] Physician) Globulin 2.8 g/dL Normal (applies [facility] [Mass/time] in to non-numeric (Ammir 24 hour Urine results) [place] Physician) A/G RATIO 1.6 Normal (applies [facility] Ratio to non-numeric (Ammir results) [place] Physician) GLOMERULAR FILT. 71 Normal (applies [facility] RATE mL/min to non-numeric (Ammir results) [place] Physician) ID Date Data Source [id number] 03/24/2016 12:00:00 AM EST [facility] (Ammir [place] Physician) Name Value Range Interpretation Description Data Sup porting Code Source(s) Document(s ) WBC 8.4 Normal (applies [facility] 10^3/uL to non-numeric (Ammir results) [place] Physician) RBC 4.56 Normal (applies [facility] 10^6/uL to non-numeric (Ammir results) [place] Physician) Hemoglobin 14.4 g/dL Normal (applies [facility] [Mass/volume] to non-numeric (Ammir in Mixed venous results) [place] blood by Physician) Oximetry Hematocrit 44 % Normal (applies [facility] [Pure volume to non-numeric (Ammir fraction] of results) [place] Blood by Physician) Automated count MCV 95 Normal (applies [facility] to non-numeric (Ammir results) [place] Physician) MCH 31.6 pg Normal (applies [facility] to non-numeric (Ammir results) [place] Physician) MCHC 33.1 g/dL Normal (applies [facility] to non-numeric (Ammir results) [place] Physician) RDW 13.8 % Normal (applies [facility] to non-numeric (Ammir results) [place] Physician) PLATELET 222 Normal (applies [facility] 10^3/uL to non-numeric (Ammir results) [place] Physician) MPV 10.63 fL Normal (applies [facility] to non-numeric (Ammir results) [place] Physician) SEGMENTED % 58.7 Normal (applies [facility] to non-numeric (Ammir results) [place] Physician) SEGMENTED # 4.9 Normal (applies [facility] to non-numeric (Ammir results) [place] Physician) LYMPHOCYTES % 30.33 Normal (applies [facility] to non-numeric (Ammir results) [place] Physician) LYMPHOCYTES # 2.5 Normal (applies [facility] 10^3/uL to non-numeric (Ammir results) [place] Physician) MONOCYTES % 9.6 % Normal (applies [facility] to non-numeric (Ammir results) [place] Physician) MONOCYTES # 0.8 Normal (applies [facility] 10^3/uL to non-numeric (Ammir results) [place] Physician) EOSINOPHILS % 0.94 % Normal (applies [facility] to non-numeric (Ammir results) [place] Physician) EOSINOPHILS # 0.08 Normal (applies [facility] 10^3/uL to non-numeric (Ammir results) [place] Physician) BASOPHILS % 0.47 % Normal (applies [facility] to non-numeric (Ammir results) [place] Physician) BASOPHILS # 0.04 Normal (applies [facility] 10^3/uL to non-numeric (Ammir results) [place] Physician) Procedure Social History Code Duration Value Status Description Data Source(s ) Smoking 11/22/2019 CURRENT SMOKER, completed CURRENT SMOKER, 10 M [facility] (Ammir 12:00:00 AM EDT 10 CIGARETTES PER CIGARETTES PE R [place] DAY. DAY. Physician) Smoking 11/22/2019 Unknown if ever completed Unknown if ever [facility] EN (Ammir 12:00:00 AM EDT smoked smoked [place] Physician) Smoking 11/02/2019 CURRENT SMOKER, completed CURRENT SMOKER, 10 M [facility] (Ammir 12:00:00 AM EDT 10 CIGARETTES PER CIGARETTES PE R [place] DAY. DAY. Physician) Smoking 11/02/2019 Unknown if ever completed Unknown if ever [facility] EN (Ammir 12:00:00 AM EDT smoked smoked [place] Physician) Smoking 10/25/2019 CURRENT SMOKER, completed CURRENT SMOKER, 10 M [facility] (Ammir 12:00:00 AM EDT 10 CIGARETTES PER CIGARETTES PE R [place] DAY. DAY. Physician) Smoking 10/25/2019 Unknown if ever completed Unknown if ever [facility] EN (Ammir 12:00:00 AM EDT smoked smoked [place] Physician) Smoking 10/14/2019 CURRENT SMOKER, completed CURRENT SMOKER, 10 M [facility] (Ammir 12:00:00 AM EDT 10 CIGARETTES PER CIGARETTES PE R [place] DAY. DAY. Physician) Smoking 10/14/2019 Unknown if ever completed Unknown if ever [facility] EN (Ammir 12:00:00 AM EDT smoked smoked [place] Physician) Vital Signs ID Date Data Source UNK Name Value Range Interpretation Code Description Data Source(s) Heart rate 70 /min 70 /min [facility] (Ammir [place] Physician) Inhaled oxygen 98 % 98 % [facility] (Am maria guadalupe concentration [facility] Physician) Body mass index 21.9 kg/m2 21.9 kg/m2 [facility] (A mmir (BMI) [Ratio] [place] Physician) Diastolic blood 60 mm[Hg] 60 mm[Hg] [facility] (A mmir pressure [place] Physician) Systolic blood 124 mm[Hg] 124 mm[Hg] [facility] (Am maria guadalupe pressure [facility] Physician) Body weight 120 lb 120 lb [facility] (Ammir [place] Physician) Body height 62 in 62 in [facility] (Ammir [place] Physician) Heart rate 70 /min 70 /min [facility] (Ammir [place] Physician) Inhaled oxygen 98 % 98 % [facility] (Am maria guadalupe concentration [facility] Physician) Body mass index 21.9 kg/m2 21.9 kg/m2 [facility] (A mmir (BMI) [Ratio] [place] Physician) Diastolic blood 60 mm[Hg] 60 mm[Hg] [facility] (A mmir pressure [place] Physician) Systolic blood 124 mm[Hg] 124 mm[Hg] [facility] (Am maria guadalupe pressure [facility] Physician) Body weight 120 lb 120 lb [facility] (Ammir [place] Physician) Body height 62 in 62 in [facility] (Ammir [place] Physician) Heart rate 70 /min 70 /min [facility] (Ammir [place] Physician) Inhaled oxygen 98 % 98 % [facility] (Am maria guadalupe concentration [facility] Physician) Body mass index 21.9 kg/m2 21.9 kg/m2 [facility] (A mmir (BMI) [Ratio] [place] Physician) Diastolic blood 60 mm[Hg] 60 mm[Hg] [facility] (A mmir pressure [place] Physician) Systolic blood 124 mm[Hg] 124 mm[Hg] [facility] (Am maria guadalupe pressure [facility] Physician) Body weight 120 lb 120 lb [facility] (Ammir [place] Physician) Body height 62 in 62 in [facility] (Ammir [place] Physician) Body weight 120 lb 120 lb [facility] (Ammir [place] Physician) Body height 62 in 62 in [facility] (Ammir [place] Physician) Heart rate 70 /min 70 /min [facility] (Ammir [place] Physician) Inhaled oxygen 98 % 98 % [facility] (Am maria guadalupe concentration [facility] Physician) Body mass index 21.9 kg/m2 21.9 kg/m2 [facility] (A mmir (BMI) [Ratio] [place] Physician) Diastolic blood 60 mm[Hg] 60 mm[Hg] [facility] (A mmir pressure [place] Physician) Systolic blood 124 mm[Hg] 124 mm[Hg] [facility] (Am maria guadalupe pressure [facility] Physician) Systolic blood 124 mm[Hg] 124 mm[Hg] [facility] (Am maria guadalupe pressure [facility] Physician) Body weight 120 lb 120 lb [facility] (Ammir [place] Physician) Body height 62 in 62 in [facility] (Ammir [place] Physician) Heart rate 70 /min 70 /min [facility] (Ammir [place] Physician) Inhaled oxygen 98 % 98 % [facility] (Am maria guadalupe concentration [facility] Physician) Body mass index 21.9 kg/m2 21.9 kg/m2 [facility] (A mmir (BMI) [Ratio] [place] Physician) Diastolic blood 60 mm[Hg] 60 mm[Hg] [facility] (A mmir pressure [place] Physician) Heart rate 70 /min 70 /min [facility] (Ammir [place] Physician) Inhaled oxygen 98 % 98 % [facility] (Am maria guadalupe concentration [facility] Physician) Body mass index 21.9 kg/m2 21.9 kg/m2 [facility] (A mmir (BMI) [Ratio] [place] Physician) Diastolic blood 60 mm[Hg] 60 mm[Hg] [facility] (A mmir pressure [place] Physician) Systolic blood 124 mm[Hg] 124 mm[Hg] [facility] (Am maria guadalupe pressure [facility] Physician) Body weight 120 lb 120 lb [facility] (Ammir [place] Physician) Body height 62 in 62 in [facility] (Ammir [place] Physician) Heart rate 70 /min 70 /min [facility] (Ammir [place] Physician) Inhaled oxygen 98 % 98 % [facility] (Am maria guadalupe concentration [facility] Physician) Body mass index 21.9 kg/m2 21.9 kg/m2 [facility] (A mmir (BMI) [Ratio] [place] Physician) Diastolic blood 60 mm[Hg] 60 mm[Hg] [facility] (A mmir pressure [place] Physician) Systolic blood 124 mm[Hg] 124 mm[Hg] [facility] (Am maria guadalupe pressure [facility] Physician) Body weight 120 lb 120 lb [facility] (Ammir [place] Physician) Body height 62 in 62 in [facility] (Ammir [place] Physician) Heart rate 70 /min 70 /min [facility] (Ammir [place] Physician) Inhaled oxygen 98 % 98 % [facility] (Am maria guadalupe concentration [facility] Physician) Body mass index 21.9 kg/m2 21.9 kg/m2 [facility] (A mmir (BMI) [Ratio] [place] Physician) Diastolic blood 60 mm[Hg] 60 mm[Hg] [facility] (A mmir pressure [place] Physician) Systolic blood 124 mm[Hg] 124 mm[Hg] [facility] (Am maria guadalupe pressure [facility] Physician) Body weight 120 lb 120 lb [facility] (Ammir [place] Physician) Body height 62 in 62 in [facility] (Ammir [place] Physician) Heart rate 70 /min 70 /min [facility] (Ammir [place] Physician) Inhaled oxygen 98 % 98 % [facility] (Am maria guadalupe concentration [facility] Physician) Body mass index 21.9 kg/m2 21.9 kg/m2 [facility] (A mmir (BMI) [Ratio] [place] Physician) Diastolic blood 60 mm[Hg] 60 mm[Hg] [facility] (A mmir pressure [place] Physician) Systolic blood 124 mm[Hg] 124 mm[Hg] [facility] (Am maria guadalupe pressure [facility] Physician) Body weight 120 lb 120 lb [facility] (Ammir [place] Physician) Body height 62 in 62 in [facility] (Ammir [place] Physician) Heart rate 70 /min 70 /min [facility] (Ammir [place] Physician) Inhaled oxygen 98 % 98 % [facility] (Am maria guadalupe concentration [facility] Physician) Body mass index 21.9 kg/m2 21.9 kg/m2 [facility] (A mmir (BMI) [Ratio] [place] Physician) Diastolic blood 60 mm[Hg] 60 mm[Hg] [facility] (A mmir pressure [place] Physician) Systolic blood 124 mm[Hg] 124 mm[Hg] [facility] (Am maria guadalupe pressure [facility] Physician) Body weight 120 lb 120 lb [facility] (Ammir [place] Physician) Body height 62 in 62 in [facility] (Ammir [place] Physician) Heart rate 70 /min 70 /min [facility] (Ammir [place] Physician) Inhaled oxygen 98 % 98 % [facility] (Am maria guadalupe concentration [facility] Physician) Body mass index 21.9 kg/m2 21.9 kg/m2 [facility] (A mmir (BMI) [Ratio] [place] Physician) Diastolic blood 60 mm[Hg] 60 mm[Hg] [facility] (A mmir pressure [place] Physician) Systolic blood 124 mm[Hg] 124 mm[Hg] [facility] (Am maria guadalupe pressure [facility] Physician) Body weight 120 lb 120 lb [facility] (Ammir [place] Physician) Body height 62 in 62 in [facility] (Ammir [place] Physician) Heart rate 70 /min 70 /min [facility] (Ammir [place] Physician) Inhaled oxygen 98 % 98 % [facility] (Am maria guadalupe concentration [facility] Physician) Body mass index 21.9 kg/m2 21.9 kg/m2 [facility] (A mmir (BMI) [Ratio] [place] Physician) Diastolic blood 60 mm[Hg] 60 mm[Hg] [facility] (A mmir pressure [place] Physician) Systolic blood 124 mm[Hg] 124 mm[Hg] [facility] (Am maria guadalupe pressure [facility] Physician) Body weight 120 lb 120 lb [facility] (Ammir [place] Physician) Body height 62 in 62 in [facility] (Ammir [place] Physician) Heart rate 70 /min 70 /min [facility] (Ammir [place] Physician) Inhaled oxygen 98 % 98 % [facility] (Am maria guadalupe concentration [facility] Physician) Body mass index 21.9 kg/m2 21.9 kg/m2 [facility] (A mmir (BMI) [Ratio] [place] Physician) Diastolic blood 60 mm[Hg] 60 mm[Hg] [facility] (A mmir pressure [place] Physician) Systolic blood 124 mm[Hg] 124 mm[Hg] [facility] (Am maria guadalupe pressure [facility] Physician) Body weight 120 lb 120 lb [facility] (Ammir [place] Physician) Body height 62 in 62 in [facility] (Ammir [place] Physician) Heart rate 70 /min 70 /min [facility] (Ammir [place] Physician) Inhaled oxygen 98 % 98 % [facility] (Am maria guadalupe concentration [facility] Physician) Body mass index 21.9 kg/m2 21.9 kg/m2 [facility] (A mmir (BMI) [Ratio] [place] Physician) Diastolic blood 60 mm[Hg] 60 mm[Hg] [facility] (A mmir pressure [place] Physician) Systolic blood 124 mm[Hg] 124 mm[Hg] [facility] (Am maria guadalupe pressure [facility] Physician) Body weight 120 lb 120 lb [facility] (Ammir [place] Physician) Body height 62 in 62 in [facility] (Ammir [place] Physician) Heart rate 70 /min 70 /min [facility] (Ammir [place] Physician) Inhaled oxygen 98 % 98 % [facility] (Am maria guadalupe concentration [facility] Physician) Body mass index 21.9 kg/m2 21.9 kg/m2 [facility] (A mmir (BMI) [Ratio] [place] Physician) Diastolic blood 60 mm[Hg] 60 mm[Hg] [facility] (A mmir pressure [place] Physician) Systolic blood 124 mm[Hg] 124 mm[Hg] [facility] (Am maria guadalupe pressure [facility] Physician) Body weight 120 lb 120 lb [facility] (Ammir [place] Physician) Body height 62 in 62 in [facility] (Ammir [place] Physician) Heart rate 70 /min 70 /min [facility] (Ammir [place] Physician) Inhaled oxygen 98 % 98 % [facility] (Am maria guadalupe concentration [facility] Physician) Body mass index 21.9 kg/m2 21.9 kg/m2 [facility] (A mmir (BMI) [Ratio] [place] Physician) Diastolic blood 60 mm[Hg] 60 mm[Hg] [facility] (A mmir pressure [place] Physician) Systolic blood 124 mm[Hg] 124 mm[Hg] [facility] (Am maria guadalupe pressure [facility] Physician) Body weight 120 lb 120 lb [facility] (Ammir [place] Physician) Body height 62 in 62 in [facility] (Ammir [place] Physician) Heart rate 70 /min 70 /min [facility] (Ammir [place] Physician) Inhaled oxygen 98 % 98 % [facility] (Am maria guadalupe concentration [facility] Physician) Body mass index 21.9 kg/m2 21.9 kg/m2 [facility] (A mmir (BMI) [Ratio] [place] Physician) Diastolic blood 60 mm[Hg] 60 mm[Hg] [facility] (A mmir pressure [place] Physician) Systolic blood 124 mm[Hg] 124 mm[Hg] [facility] (Am maria guadalupe pressure [facility] Physician) Body weight 120 lb 120 lb [facility] (Ammir [place] Physician) Body height 62 in 62 in [facility] (Ammir [place] Physician) Heart rate 70 /min 70 /min [facility] (Ammir [place] Physician) Inhaled oxygen 98 % 98 % [facility] (Am maria guadalupe concentration [facility] Physician) Body mass index 21.9 kg/m2 21.9 kg/m2 [facility] (A mmir (BMI) [Ratio] [place] Physician) Diastolic blood 60 mm[Hg] 60 mm[Hg] [facility] (A mmir pressure [place] Physician) Systolic blood 124 mm[Hg] 124 mm[Hg] [facility] (Am maria guadalupe pressure [facility] Physician) Body weight 120 lb 120 lb [facility] (Ammir [place] Physician) Body height 62 in 62 in [facility] (Ammir [place] Physician) Heart rate 70 /min 70 /min [facility] (Ammir [place] Physician) Inhaled oxygen 98 % 98 % [facility] (Am maria guadalupe concentration [facility] Physician) Body mass index 21.9 kg/m2 21.9 kg/m2 [facility] (A mmir (BMI) [Ratio] [place] Physician) Diastolic blood 60 mm[Hg] 60 mm[Hg] [facility] (A mmir pressure [place] Physician) Systolic blood 124 mm[Hg] 124 mm[Hg] [facility] (Am maria guadalupe pressure [facility] Physician) Body weight 120 lb 120 lb [facility] (Ammir [place] Physician) Body height 62 in 62 in [facility] (Ammir [place] Physician) Heart rate 70 /min 70 /min [facility] (Ammir [place] Physician) Inhaled oxygen 98 % 98 % [facility] (Am maria guadalupe concentration [facility] Physician) Body mass index 21.9 kg/m2 21.9 kg/m2 [facility] (A mmir (BMI) [Ratio] [place] Physician) Diastolic blood 60 mm[Hg] 60 mm[Hg] [facility] (A mmir pressure [place] Physician) Systolic blood 124 mm[Hg] 124 mm[Hg] [facility] (Am maria guadalupe pressure [facility] Physician) Body weight 120 lb 120 lb [facility] (Ammir [place] Physician) Body height 62 in 62 in [facility] (Ammir [place] Physician) Heart rate 70 /min 70 /min [facility] (Ammir [place] Physician) Inhaled oxygen 98 % 98 % [facility] (Am maria guadalupe concentration [facility] Physician) Body mass index 21.9 kg/m2 21.9 kg/m2 [facility] (A mmir (BMI) [Ratio] [place] Physician) Diastolic blood 60 mm[Hg] 60 mm[Hg] [facility] (A mmir pressure [place] Physician) Systolic blood 124 mm[Hg] 124 mm[Hg] [facility] (Am maria guadalupe pressure [facility] Physician) Body weight 120 lb 120 lb [facility] (Ammir [place] Physician) Body height 62 in 62 in [facility] (Ammir [place] Physician) Heart rate 70 /min 70 /min [facility] (Ammir [place] Physician) Inhaled oxygen 98 % 98 % [facility] (Am maria guadalupe concentration [facility] Physician) Body mass index 21.9 kg/m2 21.9 kg/m2 [facility] (A mmir (BMI) [Ratio] [place] Physician) Diastolic blood 60 mm[Hg] 60 mm[Hg] [facility] (A mmir pressure [place] Physician) Systolic blood 124 mm[Hg] 124 mm[Hg] [facility] (Am maria guadalupe pressure [facility] Physician) Body weight 120 lb 120 lb [facility] (Ammir [place] Physician) Body height 62 in 62 in [facility] (Ammir [place] Physician) Heart rate 70 /min 70 /min [facility] (Ammir [place] Physician) Inhaled oxygen 98 % 98 % [facility] (Am maria guadalupe concentration [facility] Physician) Body mass index 21.9 kg/m2 21.9 kg/m2 [facility] (A mmir (BMI) [Ratio] [place] Physician) Diastolic blood 60 mm[Hg] 60 mm[Hg] [facility] (A mmir pressure [place] Physician) Systolic blood 124 mm[Hg] 124 mm[Hg] [facility] (Am maria guadalupe pressure [facility] Physician) Body weight 120 lb 120 lb [facility] (Ammir [place] Physician) Body height 62 in 62 in [facility] (Ammir [place] Physician) Heart rate 70 /min 70 /min [facility] (Ammir [place] Physician) Inhaled oxygen 98 % 98 % [facility] (Am maria guadalupe concentration [facility] Physician) Body mass index 21.9 kg/m2 21.9 kg/m2 [facility] (A mmir (BMI) [Ratio] [place] Physician) Diastolic blood 60 mm[Hg] 60 mm[Hg] [facility] (A mmir pressure [place] Physician) Systolic blood 124 mm[Hg] 124 mm[Hg] [facility] (Am maria guadalupe pressure [facility] Physician) Body weight 120 lb 120 lb [facility] (Ammir [place] Physician) Body height 62 in 62 in [facility] (Ammir [place] Physician) Heart rate 70 /min 70 /min [facility] (Ammir [place] Physician) Inhaled oxygen 98 % 98 % [facility] (Am maria guadalupe concentration [facility] Physician) Body mass index 21.9 kg/m2 21.9 kg/m2 [facility] (A mmir (BMI) [Ratio] [place] Physician) Diastolic blood 60 mm[Hg] 60 mm[Hg] [facility] (A mmir pressure [place] Physician) Systolic blood 124 mm[Hg] 124 mm[Hg] [facility] ([facility]) Body weight 120 lb 120 lb [facility] ([facility]) Body height 62 in 62 in [facility] ([facility]) Heart rate 70 /min 70 /min [facility] ([facility]) Inhaled oxygen 98 % 98 % [facility] ([facility]) Body mass index 21.9 kg/m2 21.9 kg/m2 [facility] (A mmir (BMI) [Ratio] [facility]) Diastolic blood 60 mm[Hg] 60 mm[Hg] [facility] ([facility]) Systolic blood 124 mm[Hg] 124 mm[Hg] [facility] ([facility]) Body weight 120 lb 120 lb [facility] ([facility]) Body height 62 in 62 in [facility] ([facility]) Heart rate 70 /min 70 /min [facility] ([facility]) Inhaled oxygen 98 % 98 % [facility] ([facility]) Body mass index 21.9 kg/m2 21.9 kg/m2 [facility] (A mmir (BMI) [Ratio] [facility]) Diastolic blood 60 mm[Hg] 60 mm[Hg] [facility] ([facility]) Systolic blood 124 mm[Hg] 124 mm[Hg] [facility] ([facility]) Body weight 120 lb 120 lb [facility] ([facility]) Body height 62 in 62 in [facility] ([facility]) Heart rate 70 /min 70 /min [facility] ([facility]) Inhaled oxygen 98 % 98 % [facility] ([facility] [place] [facility]) Body mass index 21.9 kg/m2 21.9 kg/m2 [facility] (A mmir (BMI) [Ratio] [facility]) Diastolic blood 60 mm[Hg] 60 mm[Hg] [facility] ([facility]) Systolic blood 124 mm[Hg] 124 mm[Hg] [facility] ([facility]) Body weight 120 lb 120 lb [facility] ([facility]) Body height 62 in 62 in [facility] ([facility]) Heart rate 70 /min 70 /min [facility] ([facility]) Inhaled oxygen 98 % 98 % [facility] ([facility] [place] [facility]) Body mass index 21.9 kg/m2 21.9 kg/m2 [facility] (A mmir (BMI) [Ratio] [facility]) Diastolic blood 60 mm[Hg] 60 mm[Hg] [facility] ([facility]) Systolic blood 124 mm[Hg] 124 mm[Hg] [facility] ([facility]) Body weight 120 lb 120 lb [facility] ([facility]) Body height 62 in 62 in [facility] ([facility]) Heart rate 70 /min 70 /min [facility] ([facility]) Inhaled oxygen 98 % 98 % [facility] ([facility] [facility]) Body mass index 21.9 kg/m2 21.9 kg/m2 [facility] (A mmir (BMI) [Ratio] [facility]) Diastolic blood 60 mm[Hg] 60 mm[Hg] [facility] ([facility]) Systolic blood 124 mm[Hg] 124 mm[Hg] [facility] ([facility]) Body weight 120 lb 120 lb [facility] ([facility]) Body height 62 in 62 in [facility] ([facility]) Heart rate 70 /min 70 /min [facility] ([facility]) Inhaled oxygen 98 % 98 % [facility] ([facility] [place] [facility]) Body mass index 21.9 kg/m2 21.9 kg/m2 [facility] (A mmir (BMI) [Ratio] [facility]) Diastolic blood 60 mm[Hg] 60 mm[Hg] [facility] ([facility]) Systolic blood 124 mm[Hg] 124 mm[Hg] [facility] ([facility]) Body weight 120 lb 120 lb [facility] ([facility]) Body height 62 in 62 in [facility] ([facility]) Heart rate 70 /min 70 /min [facility] ([facility]) Inhaled oxygen 98 % 98 % [facility] ([facility] [place] [facility]) Body mass index 21.9 kg/m2 21.9 kg/m2 [facility] (A mmir (BMI) [Ratio] [facility]) Diastolic blood 60 mm[Hg] 60 mm[Hg] [facility] ([facility]) Systolic blood 124 mm[Hg] 124 mm[Hg] [facility] ([facility]) Body weight 120 lb 120 lb [facility] ([facility]) Body height 62 in 62 in [facility] ([facility]) Heart rate 70 /min 70 /min [facility] ([facility]) Inhaled oxygen 98 % 98 % [facility] ([facility] [place] [facility]) Body mass index 21.9 kg/m2 21.9 kg/m2 [facility] (A mmir (BMI) [Ratio] [facility]) Diastolic blood 60 mm[Hg] 60 mm[Hg] [facility] ([facility]) Systolic blood 124 mm[Hg] 124 mm[Hg] [facility] ([facility]) Body weight 120 lb 120 lb [facility] ([facility]) Body height 62 in 62 in [facility] ([facility]) Heart rate 70 /min 70 /min [facility] ([facility]) Inhaled oxygen 98 % 98 % [facility] ([facility] [place] [facility]) Body mass index 21.9 kg/m2 21.9 kg/m2 [facility] (A mmir (BMI) [Ratio] [facility]) Diastolic blood 60 mm[Hg] 60 mm[Hg] [facility] ([facility]) Systolic blood 124 mm[Hg] 124 mm[Hg] [facility] ([facility]) Body weight 120 lb 120 lb [facility] ([facility]) Body height 62 in 62 in [facility] ([facility]) Heart rate 70 /min 70 /min [facility] ([facility]) Inhaled oxygen 98 % 98 % [facility] ([facility] [place] [facility]) Body mass index 21.9 kg/m2 21.9 kg/m2 [facility] (A mmir (BMI) [Ratio] [facility]) Diastolic blood 60 mm[Hg] 60 mm[Hg] [facility] ([facility]) Systolic blood 124 mm[Hg] 124 mm[Hg] [facility] ([facility] [facility]) Body weight 120 lb 120 lb [facility] ([facility]) Body height 62 in 62 in [facility] ([facility]) Heart rate 70 /min 70 /min [facility] ([facility]) Inhaled oxygen 98 % 98 % [facility] ([facility] [place] [facility]) Body mass index 21.9 kg/m2 21.9 kg/m2 [facility] (A mmir (BMI) [Ratio] [facility]) Diastolic blood 60 mm[Hg] 60 mm[Hg] [facility] ([facility]) Systolic blood 124 mm[Hg] 124 mm[Hg] [facility] ([facility] [facility]) Body weight 120 lb 120 lb [facility] ([facility]) Body height 62 in 62 in [facility] ([facility]) Heart rate 70 /min 70 /min [facility] ([facility]) Inhaled oxygen 98 % 98 % [facility] ([facility] [place] [facility]) Body mass index 21.9 kg/m2 21.9 kg/m2 [facility] (A mmir (BMI) [Ratio] [facility]) Diastolic blood 60 mm[Hg] 60 mm[Hg] [facility] ([facility]) Systolic blood 124 mm[Hg] 124 mm[Hg] [facility] ([facility] [facility]) Body weight 120 lb 120 lb [facility] ([facility]) Body height 62 in 62 in [facility] ([facility]) Heart rate 70 /min 70 /min [facility] ([facility]) Inhaled oxygen 98 % 98 % [facility] ([facility] [place] [facility]) Body mass index 21.9 kg/m2 21.9 kg/m2 [facility] (A mmir (BMI) [Ratio] [facility]) Diastolic blood 60 mm[Hg] 60 mm[Hg] [facility] ([facility]) Systolic blood 124 mm[Hg] 124 mm[Hg] [facility] ([facility] [place] [facility]) Body weight 120 lb 120 lb [facility] ([facility]) Body height 62 in 62 in [facility] ([facility]) Heart rate 70 /min 70 /min [facility] ([facility]) Inhaled oxygen 98 % 98 % [facility] ([facility] [place] [facility]) Body mass index 21.9 kg/m2 21.9 kg/m2 [facility] (A mmir (BMI) [Ratio] [facility]) Diastolic blood 60 mm[Hg] 60 mm[Hg] [facility] ([facility]) Systolic blood 124 mm[Hg] 124 mm[Hg] [facility] ([facility] [facility]) Body weight 120 lb 120 lb [facility] ([facility]) Body height 62 in 62 in [facility] ([facility]) Heart rate 70 /min 70 /min [facility] ([facility]) Inhaled oxygen 98 % 98 % [facility] ([facility] [place] [facility]) Body mass index 21.9 kg/m2 21.9 kg/m2 [facility] (A mmir (BMI) [Ratio] [facility]) Diastolic blood 60 mm[Hg] 60 mm[Hg] [facility] ([facility]) Systolic blood 124 mm[Hg] 124 mm[Hg] [facility] ([facility] [facility]) Body weight 120 lb 120 lb [facility] ([facility]) Body height 62 in 62 in [facility] ([facility]) Heart rate 70 /min 70 /min [facility] ([facility]) Inhaled oxygen 98 % 98 % [facility] ([facility] [place] [facility]) Body mass index 21.9 kg/m2 21.9 kg/m2 [facility] (A mmir (BMI) [Ratio] [facility]) Diastolic blood 60 mm[Hg] 60 mm[Hg] [facility] ([facility]) Systolic blood 124 mm[Hg] 124 mm[Hg] [facility] ([facility] [facility]) Body weight 120 lb 120 lb [facility] ([facility]) Body height 62 in 62 in [facility] ([facility]) Heart rate 70 /min 70 /min [facility] ([facility]) Inhaled oxygen 98 % 98 % [facility] ([facility] [place] [facility]) Body mass index 21.9 kg/m2 21.9 kg/m2 [facility] (A mmir (BMI) [Ratio] [facility]) Diastolic blood 60 mm[Hg] 60 mm[Hg] [facility] ([facility]) Systolic blood 124 mm[Hg] 124 mm[Hg] [facility] ([facility] [place] [facility]) Body weight 120 lb 120 lb [facility] ([facility]) Body height 62 in 62 in [facility] ([facility]) Heart rate 70 /min 70 /min [facility] ([facility]) Inhaled oxygen 98 % 98 % [facility] ([facility] [place] [facility]) Body mass index 21.9 kg/m2 21.9 kg/m2 [facility] (A mmir (BMI) [Ratio] [facility]) Diastolic blood 60 mm[Hg] 60 mm[Hg] [facility] ([facility]) Systolic blood 124 mm[Hg] 124 mm[Hg] [facility] ([facility] [place] [facility]) Body weight 120 lb 120 lb [facility] ([facility]) Body height 62 in 62 in [facility] ([facility]) Heart rate 70 /min 70 /min [facility] ([facility]) Inhaled oxygen 98 % 98 % [facility] ([facility] [place] [facility]) Body mass index 21.9 kg/m2 21.9 kg/m2 [facility] (A mmir (BMI) [Ratio] [facility]) Diastolic blood 60 mm[Hg] 60 mm[Hg] [facility] ([facility]) Systolic blood 124 mm[Hg] 124 mm[Hg] [facility] ([facility] [place] [facility]) Body weight 120 lb 120 lb [facility] ([facility]) Body height 62 in 62 in [facility] ([facility]) Heart rate 70 /min 70 /min [facility] ([facility]) Inhaled oxygen 98 % 98 % [facility] ([facility] [place] [facility]) Body mass index 21.9 kg/m2 21.9 kg/m2 [facility] (A mmir (BMI) [Ratio] [facility]) Diastolic blood 60 mm[Hg] 60 mm[Hg] [facility] ([facility]) Systolic blood 124 mm[Hg] 124 mm[Hg] [facility] ([facility] [place] [facility]) Body weight 120 lb 120 lb [facility] ([facility]) Body height 62 in 62 in [facility] ([facility]) Heart rate 70 /min 70 /min [facility] ([facility]) Inhaled oxygen 98 % 98 % [facility] ([facility] [place] [facility]) Body mass index 21.9 kg/m2 21.9 kg/m2 [facility] (A mmir (BMI) [Ratio] [facility]) Diastolic blood 60 mm[Hg] 60 mm[Hg] [facility] ([facility]) Systolic blood 124 mm[Hg] 124 mm[Hg] [facility] ([facility] [place] [facility]) Body weight 120 lb 120 lb [facility] ([facility]) Body height 62 in 62 in [facility] ([facility]) Heart rate 70 /min 70 /min [facility] ([facility]) Inhaled oxygen 98 % 98 % [facility] ([facility] [place] [facility]) Body mass index 21.9 kg/m2 21.9 kg/m2 [facility] (A mmir (BMI) [Ratio] [facility]) Diastolic blood 60 mm[Hg] 60 mm[Hg] [facility] ([facility]) Systolic blood 124 mm[Hg] 124 mm[Hg] [facility] ([facility] [place] [facility]) Body weight 120 lb 120 lb [facility] ([facility]) Body height 62 in 62 in [facility] ([facility]) Heart rate 70 /min 70 /min [facility] ([facility]) Inhaled oxygen 98 % 98 % [facility] ([facility] [place] [facility]) Body mass index 21.9 kg/m2 21.9 kg/m2 [facility] (A mmir (BMI) [Ratio] [facility]) Diastolic blood 60 mm[Hg] 60 mm[Hg] [facility] ([facility]) Systolic blood 124 mm[Hg] 124 mm[Hg] [facility] ([facility] [place] [facility]) Body weight 120 lb 120 lb [facility] ([facility]) Body height 62 in 62 in [facility] ([facility]) Heart rate 70 /min 70 /min [facility] ([facility]) Inhaled oxygen 98 % 98 % [facility] ([facility] [place] [facility]) Body mass index 21.9 kg/m2 21.9 kg/m2 [facility] (A mmir (BMI) [Ratio] [facility]) Diastolic blood 60 mm[Hg] 60 mm[Hg] [facility] ([facility]) Systolic blood 124 mm[Hg] 124 mm[Hg] [facility] ([facility] [facility]) Body weight 120 lb 120 lb [facility] ([facility]) Body height 62 in 62 in [facility] ([facility]) Heart rate 70 /min 70 /min [facility] ([facility]) Inhaled oxygen 98 % 98 % [facility] ([facility] [place] [facility]) Body mass index 21.9 kg/m2 21.9 kg/m2 [facility] (A mmir (BMI) [Ratio] [facility]) Diastolic blood 60 mm[Hg] 60 mm[Hg] [facility] ([facility]) Systolic blood 124 mm[Hg] 124 mm[Hg] [facility] ([facility] [facility]) Body weight 120 lb 120 lb [facility] ([facility]) Body height 62 in 62 in [facility] ([facility]) Heart rate 70 /min 70 /min [facility] ([facility]) Inhaled oxygen 98 % 98 % [facility] ([facility] [place] [facility]) Body mass index 21.9 kg/m2 21.9 kg/m2 [facility] (A mmir (BMI) [Ratio] [facility]) Diastolic blood 60 mm[Hg] 60 mm[Hg] [facility] ([facility]) Systolic blood 124 mm[Hg] 124 mm[Hg] [facility] ([facility] [facility]) Body weight 120 lb 120 lb [facility] ([facility]) Body height 62 in 62 in [facility] ([facility]) Heart rate 70 /min 70 /min [facility] ([facility]) Inhaled oxygen 98 % 98 % [facility] ([facility] [place] [facility]) Body mass index 21.9 kg/m2 21.9 kg/m2 [facility] (A mmir (BMI) [Ratio] [facility]) Diastolic blood 60 mm[Hg] 60 mm[Hg] [facility] ([facility]) Systolic blood 124 mm[Hg] 124 mm[Hg] [facility] ([facility] [facility]) Body weight 120 lb 120 lb [facility] ([facility]) Body height 62 in 62 in [facility] ([facility]) Heart rate 70 /min 70 /min [facility] ([facility]) Inhaled oxygen 98 % 98 % [facility] ([facility] [place] [facility]) Body mass index 21.9 kg/m2 21.9 kg/m2 [facility] (A mmir (BMI) [Ratio] [facility]) Diastolic blood 70 mm[Hg] 70 mm[Hg] [facility] ([facility]) Systolic blood 118 mm[Hg] 118 mm[Hg] [facility] ([facility] [facility]) Body weight 120 lb 120 lb [facility] ([facility]) Body height 62 in 62 in [facility] ([facility]) Heart rate 70 /min 70 /min [facility] ([facility]) Inhaled oxygen 98 % 98 % [facility] ([facility] [facility]) Body mass index 21.9 kg/m2 21.9 kg/m2 [facility] (A mmir (BMI) [Ratio] [facility]) Diastolic blood 70 mm[Hg] 70 mm[Hg] [facility] ([facility]) Systolic blood 118 mm[Hg] 118 mm[Hg] [facility] ([facility] [facility]) Body weight 120 lb 120 lb [facility] ([facility]) Body height 62 in 62 in [facility] ([facility]) Heart rate 70 /min 70 /min [facility] ([facility]) Inhaled oxygen 98 % 98 % [facility] ([facility] [place] [facility]) Body mass index 21.9 kg/m2 21.9 kg/m2 [facility] (A mmir (BMI) [Ratio] [facility]) Diastolic blood 70 mm[Hg] 70 mm[Hg] [facility] ([facility]) Systolic blood 118 mm[Hg] 118 mm[Hg] [facility] ([facility] [facility]) Body weight 120 lb 120 lb [facility] ([facility]) Body height 62 in 62 in [facility] ([facility]) Heart rate 70 /min 70 /min [facility] ([facility]) Inhaled oxygen 98 % 98 % [facility] ([facility] [facility]) Body mass index 21.9 kg/m2 21.9 kg/m2 [facility] (A mmir (BMI) [Ratio] [facility]) Diastolic blood 70 mm[Hg] 70 mm[Hg] [facility] ([facility]) Systolic blood 118 mm[Hg] 118 mm[Hg] [facility] ([facility] [facility]) Body weight 120 lb 120 lb [facility] ([facility]) Body height 62 in 62 in [facility] ([facility]) Heart rate 70 /min 70 /min [facility] ([facility]) Inhaled oxygen 98 % 98 % [facility] ([facility] [place] [facility]) Body mass index 21.9 kg/m2 21.9 kg/m2 [facility] (A mmir (BMI) [Ratio] [facility]) Diastolic blood 70 mm[Hg] 70 mm[Hg] [facility] ([facility]) Systolic blood 118 mm[Hg] 118 mm[Hg] [facility] ([facility] [facility]) Body weight 120 lb 120 lb [facility] ([facility]) Body height 62 in 62 in [facility] ([facility]) Heart rate 70 /min 70 /min [facility] ([facility]) Inhaled oxygen 98 % 98 % [facility] ([facility] [place] [facility]) Body mass index 21.9 kg/m2 21.9 kg/m2 [facility] (A mmir (BMI) [Ratio] [facility]) Diastolic blood 70 mm[Hg] 70 mm[Hg] [facility] ([facility]) Systolic blood 118 mm[Hg] 118 mm[Hg] [facility] ([facility] [facility]) Body weight 120 lb 120 lb [facility] ([facility]) Body height 62 in 62 in [facility] ([facility]) Heart rate 70 /min 70 /min [facility] ([facility]) Inhaled oxygen 98 % 98 % [facility] ([facility] [place] [facility]) Body mass index 21.9 kg/m2 21.9 kg/m2 [facility] (A mmir (BMI) [Ratio] [facility]) Diastolic blood 70 mm[Hg] 70 mm[Hg] [facility] ([facility]) Systolic blood 118 mm[Hg] 118 mm[Hg] [facility] ([facility] [facility]) Body weight 120 lb 120 lb [facility] ([facility]) Body height 62 in 62 in [facility] ([facility]) Heart rate 70 /min 70 /min [facility] ([facility]) Inhaled oxygen 98 % 98 % [facility] ([facility] [facility]) Body mass index 21.9 kg/m2 21.9 kg/m2 [facility] (A mmir (BMI) [Ratio] [facility]) Diastolic blood 70 mm[Hg] 70 mm[Hg] [facility] ([facility]) Systolic blood 118 mm[Hg] 118 mm[Hg] [facility] ([facility] [facility]) Body weight 120 lb 120 lb [facility] ([facility]) Body height 62 in 62 in [facility] ([facility]) Heart rate 70 /min 70 /min [facility] ([facility]) Inhaled oxygen 98 % 98 % [facility] ([facility] [place] [facility]) Body mass index 21.9 kg/m2 21.9 kg/m2 [facility] (A mmir (BMI) [Ratio] [facility]) Diastolic blood 70 mm[Hg] 70 mm[Hg] [facility] ([facility]) Systolic blood 118 mm[Hg] 118 mm[Hg] [facility] ([facility] [facility]) Body weight 120 lb 120 lb [facility] ([facility]) Body height 62 in 62 in [facility] ([facility]) Systolic blood 118 mm[Hg] 118 mm[Hg] [facility] ([facility] [facility]) Body weight 120 lb 120 lb [facility] ([facility]) Body height 62 in 62 in [facility] ([facility]) Heart rate 70 /min 70 /min [facility] ([facility]) Inhaled oxygen 98 % 98 % [facility] ([facility] [place] [facility]) Body mass index 21.9 kg/m2 21.9 kg/m2 [facility] (A mmir (BMI) [Ratio] [facility]) Diastolic blood 70 mm[Hg] 70 mm[Hg] [facility] ([facility]) Heart rate 70 /min 70 /min [facility] ([facility]) Inhaled oxygen 98 % 98 % [facility] ([facility] [place] [facility]) Body mass index 21.9 kg/m2 21.9 kg/m2 [facility] (A mmir (BMI) [Ratio] [facility]) Diastolic blood 70 mm[Hg] 70 mm[Hg] [facility] ([facility]) Systolic blood 118 mm[Hg] 118 mm[Hg] [facility] ([facility] [facility]) Body weight 120 lb 120 lb [facility] ([facility]) Body height 62 in 62 in [facility] ([facility]) Heart rate 70 /min 70 /min [facility] ([facility]) Inhaled oxygen 98 % 98 % [facility] ([facility] [place] [facility]) Body mass index 21.9 kg/m2 21.9 kg/m2 [facility] (A mmir (BMI) [Ratio] [facility]) Diastolic blood 70 mm[Hg] 70 mm[Hg] [facility] ([facility]) Systolic blood 118 mm[Hg] 118 mm[Hg] [facility] ([facility] [facility]) Body weight 120 lb 120 lb [facility] ([facility]) Body height 62 in 62 in [facility] ([facility]) Heart rate 70 /min 70 /min [facility] ([facility]) Inhaled oxygen 98 % 98 % [facility] ([facility] [place] [facility]) Body mass index 21.9 kg/m2 21.9 kg/m2 [facility] (A mmir (BMI) [Ratio] [facility]) Diastolic blood 70 mm[Hg] 70 mm[Hg] [facility] ([facility]) Systolic blood 118 mm[Hg] 118 mm[Hg] [facility] ([facility] [facility]) Body weight 120 lb 120 lb [facility] ([facility]) Body height 62 in 62 in [facility] ([facility]) Heart rate 70 /min 70 /min [facility] ([facility]) Inhaled oxygen 98 % 98 % [facility] ([facility] [place] [facility]) Body mass index 21.9 kg/m2 21.9 kg/m2 [facility] (A mmir (BMI) [Ratio] [facility]) Diastolic blood 70 mm[Hg] 70 mm[Hg] [facility] ([facility]) Systolic blood 118 mm[Hg] 118 mm[Hg] [facility] ([facility] [facility]) Body weight 120 lb 120 lb [facility] ([facility]) Body height 62 in 62 in [facility] ([facility]) Heart rate 70 /min 70 /min [facility] ([facility]) Inhaled oxygen 98 % 98 % [facility] ([facility] [place] [facility]) Body mass index 21.9 kg/m2 21.9 kg/m2 [facility] (A mmir (BMI) [Ratio] [facility]) Diastolic blood 70 mm[Hg] 70 mm[Hg] [facility] (A mm[facility]) Systolic blood 118 mm[Hg] 118 mm[Hg] [facility] ([facility] [facility]) Body weight 120 lb 120 lb [facility] ([facility]) Body height 62 in 62 in [facility] ([facility]) Heart rate 70 /min 70 /min [facility] ([facility]) Inhaled oxygen 98 % 98 % [facility] ([facility] [place] [facility]) Body mass index 21.9 kg/m2 21.9 kg/m2 [facility] (A mmir (BMI) [Ratio] [facility]) Diastolic blood 70 mm[Hg] 70 mm[Hg] [facility] (A mm[facility]) Systolic blood 118 mm[Hg] 118 mm[Hg] [facility] ([facility] [facility]) Body weight 120 lb 120 lb [facility] ([facility]) Body height 62 in 62 in [facility] ([facility]) Heart rate 70 /min 70 /min [facility] ([facility]) Inhaled oxygen 98 % 98 % [facility] ([facility] [place] [facility]) Body mass index 21.9 kg/m2 21.9 kg/m2 [facility] (A mmir (BMI) [Ratio] [facility]) Diastolic blood 86 mm[Hg] 86 mm[Hg] [facility] (A mm[facility] pressure [facility]) Systolic blood 134 mm[Hg] 134 mm[Hg] [facility] ([facility]) Body weight 120 lb 120 lb [facility] ([facility]) Body height 62 in 62 in [facility] ([facility]) Heart rate 70 /min 70 /min [facility] ([facility]) Inhaled oxygen 98 % 98 % [facility] ([facility] [place] [facility]) Body mass index 21.9 kg/m2 21.9 kg/m2 [facility] (A mmir (BMI) [Ratio] [facility]) Diastolic blood 86 mm[Hg] 86 mm[Hg] [facility] (A mm[facility] pressure [facility]) Systolic blood 134 mm[Hg] 134 mm[Hg] [facility] ([facility]) Body weight 120 lb 120 lb [facility] ([facility]) Body height 62 in 62 in [facility] ([facility]) Heart rate 70 /min 70 /min [facility] ([facility]) Inhaled oxygen 98 % 98 % [facility] ([facility] [place] [facility]) Body mass index 21.9 kg/m2 21.9 kg/m2 [facility] (A mmir (BMI) [Ratio] [facility]) Diastolic blood 86 mm[Hg] 86 mm[Hg] [facility] (A [facility]) Systolic blood 134 mm[Hg] 134 mm[Hg] [facility] ([facility]) Body weight 120 lb 120 lb [facility] ([facility]) Body height 62 in 62 in [facility] ([facility]) Heart rate 70 /min 70 /min [facility] ([facility]) Inhaled oxygen 98 % 98 % [facility] ([facility] [place] [facility]) Body mass index 21.9 kg/m2 21.9 kg/m2 [facility] (A mmir (BMI) [Ratio] [facility]) Diastolic blood 86 mm[Hg] 86 mm[Hg] [facility] (A [facility] pressure [facility]) Systolic blood 134 mm[Hg] 134 mm[Hg] [facility] ([facility]) Body weight 120 lb 120 lb [facility] ([facility]) Body height 62 in 62 in [facility] ([facility]) Heart rate 70 /min 70 /min [facility] ([facility]) Inhaled oxygen 98 % 98 % [facility] ([facility]) Body mass index 21.9 kg/m2 21.9 kg/m2 [facility] (A mmir (BMI) [Ratio] [facility]) Diastolic blood 86 mm[Hg] 86 mm[Hg] [facility] ([facility]) Systolic blood 134 mm[Hg] 134 mm[Hg] [facility] ([facility]) Body weight 120 lb 120 lb [facility] ([facility]) Body height 62 in 62 in [facility] ([facility]) Heart rate 70 /min 70 /min [facility] ([facility]) Inhaled oxygen 98 % 98 % [facility] ([facility]) Body mass index 21.9 kg/m2 21.9 kg/m2 [facility] (A mmir (BMI) [Ratio] [facility]) Diastolic blood 86 mm[Hg] 86 mm[Hg] [facility] ([facility]) Systolic blood 134 mm[Hg] 134 mm[Hg] [facility] ([facility]) Body weight 120 lb 120 lb [facility] ([facility]) Body height 62 in 62 in [facility] ([facility]) Heart rate 70 /min 70 /min [facility] ([facility]) Inhaled oxygen 98 % 98 % [facility] ([facility]) Body mass index 21.9 kg/m2 21.9 kg/m2 [facility] (A mmir (BMI) [Ratio] [facility]) Diastolic blood 86 mm[Hg] 86 mm[Hg] [facility] ([facility]) Systolic blood 134 mm[Hg] 134 mm[Hg] [facility] ([facility]) Body weight 120 lb 120 lb [facility] ([facility]) Body height 62 in 62 in [facility] ([facility]) Heart rate 70 /min 70 /min [facility] ([facility]) Inhaled oxygen 98 % 98 % [facility] ([facility]) Body mass index 21.9 kg/m2 21.9 kg/m2 [facility] (A mmir (BMI) [Ratio] [facility]) Diastolic blood 86 mm[Hg] 86 mm[Hg] [facility] ([facility]) Systolic blood 134 mm[Hg] 134 mm[Hg] [facility] ([facility]) Body weight 120 lb 120 lb [facility] ([facility]) Body height 62 in 62 in [facility] ([facility]) Heart rate 70 /min 70 /min [facility] ([facility]) Inhaled oxygen 98 % 98 % [facility] ([facility]) Body mass index 21.9 kg/m2 21.9 kg/m2 [facility] (A mmir (BMI) [Ratio] [facility]) Diastolic blood 82 mm[Hg] 82 mm[Hg] [facility] ([facility]) Systolic blood 140 mm[Hg] 140 mm[Hg] [facility] ([facility]) Body weight 120 lb 120 lb [facility] ([facility]) Body height 62 in 62 in [facility] ([facility]) Heart rate 70 /min 70 /min [facility] ([facility]) Inhaled oxygen 98 % 98 % [facility] ([facility]) Body mass index 21.9 kg/m2 21.9 kg/m2 [facility] (A mmir (BMI) [Ratio] [facility]) Diastolic blood 82 mm[Hg] 82 mm[Hg] [facility] ([facility]) Systolic blood 140 mm[Hg] 140 mm[Hg] [facility] ([facility]) Body weight 120 lb 120 lb [facility] ([facility]) Body height 62 in 62 in [facility] ([facility]) Heart rate 70 /min 70 /min [facility] ([facility]) Inhaled oxygen 98 % 98 % [facility] ([facility]) Body mass index 21.9 kg/m2 21.9 kg/m2 [facility] (A mmir (BMI) [Ratio] [facility]) Diastolic blood 82 mm[Hg] 82 mm[Hg] [facility] ([facility]) Systolic blood 140 mm[Hg] 140 mm[Hg] [facility] ([facility]) Body weight 120 lb 120 lb [facility] ([facility]) Body height 62 in 62 in [facility] ([facility]) Heart rate 70 /min 70 /min [facility] ([facility]) Inhaled oxygen 98 % 98 % [facility] ([facility]) Body mass index 21.9 kg/m2 21.9 kg/m2 [facility] (A mmir (BMI) [Ratio] [facility]) Diastolic blood 82 mm[Hg] 82 mm[Hg] [facility] ([facility]) Systolic blood 140 mm[Hg] 140 mm[Hg] [facility] ([facility]) Body weight 120 lb 120 lb [facility] ([facility]) Body height 62 in 62 in [facility] ([facility]) Inhaled oxygen 98 % 98 % [facility] ([facility]) Body mass index 21.9 kg/m2 21.9 kg/m2 [facility] (A mmir (BMI) [Ratio] [facility]) Diastolic blood 82 mm[Hg] 82 mm[Hg] [facility] ([facility]) Systolic blood 140 mm[Hg] 140 mm[Hg] [facility] ([facility]) Body weight 120 lb 120 lb [facility] ([facility]) Body height 62 in 62 in [facility] ([facility]) Heart rate 70 /min 70 /min [facility] ([facility]) Heart rate 70 /min 70 /min [facility] ([facility]) Inhaled oxygen 98 % 98 % [facility] ([facility]) Body mass index 21.9 kg/m2 21.9 kg/m2 [facility] (A mmir (BMI) [Ratio] [facility]) Diastolic blood 82 mm[Hg] 82 mm[Hg] [facility] ([facility]) Systolic blood 140 mm[Hg] 140 mm[Hg] [facility] ([facility]) Body weight 120 lb 120 lb [facility] ([facility]) Body height 62 in 62 in [facility] ([facility]) Heart rate 70 /min 70 /min [facility] ([facility]) Inhaled oxygen 98 % 98 % [facility] ([facility]) Body mass index 21.9 kg/m2 21.9 kg/m2 [facility] (A mmir (BMI) [Ratio] [facility]) Diastolic blood 82 mm[Hg] 82 mm[Hg] [facility] ([facility]) Systolic blood 140 mm[Hg] 140 mm[Hg] [facility] ([facility]) Body weight 120 lb 120 lb [facility] ([facility]) Body height 62 in 62 in [facility] ([facility]) Heart rate 70 /min 70 /min [facility] ([facility]) Inhaled oxygen 98 % 98 % [facility] ([facility] [facility]) Body mass index 21.9 kg/m2 21.9 kg/m2 [facility] (A mmir (BMI) [Ratio] [facility]) Diastolic blood 82 mm[Hg] 82 mm[Hg] [facility] ([facility]) Systolic blood 140 mm[Hg] 140 mm[Hg] [facility] ([facility]) Body weight 120 lb 120 lb [facility] ([facility]) Body height 62 in 62 in [facility] ([facility]) Heart rate 70 /min 70 /min [facility] ([facility]) Inhaled oxygen 98 % 98 % [facility] ([facility]) Body mass index 21.9 kg/m2 21.9 kg/m2 [facility] (A mmir (BMI) [Ratio] [facility]) Diastolic blood 76 mm[Hg] 76 mm[Hg] [facility] ([facility]) Systolic blood 120 mm[Hg] 120 mm[Hg] [facility] ([facility]) Body weight 120 lb 120 lb [facility] ([facility]) Body height 62 in 62 in [facility] ([facility]) Heart rate 70 /min 70 /min [facility] ([facility]) Inhaled oxygen 98 % 98 % [facility] ([facility] [facility]) Body mass index 21.9 kg/m2 21.9 kg/m2 [facility] (A mmir (BMI) [Ratio] [facility]) Diastolic blood 76 mm[Hg] 76 mm[Hg] [facility] ([facility]) Systolic blood 120 mm[Hg] 120 mm[Hg] [facility] ([facility]) Body weight 120 lb 120 lb [facility] ([facility]) Body height 62 in 62 in [facility] ([facility]) Heart rate 70 /min 70 /min [facility] ([facility]) Inhaled oxygen 98 % 98 % [facility] ([facility] [facility]) Body mass index 21.9 kg/m2 21.9 kg/m2 [facility] (A mmir (BMI) [Ratio] [facility]) Diastolic blood 76 mm[Hg] 76 mm[Hg] [facility] ([facility]) Systolic blood 120 mm[Hg] 120 mm[Hg] [facility] ([facility]) Body weight 120 lb 120 lb [facility] ([facility]) Body height 62 in 62 in [facility] ([facility]) Heart rate 70 /min 70 /min [facility] ([facility]) Inhaled oxygen 98 % 98 % [facility] ([facility] [facility]) Body mass index 21.9 kg/m2 21.9 kg/m2 [facility] (A mmir (BMI) [Ratio] [facility]) Diastolic blood 76 mm[Hg] 76 mm[Hg] [facility] ([facility]) Systolic blood 120 mm[Hg] 120 mm[Hg] [facility] ([facility]) Body weight 120 lb 120 lb [facility] ([facility]) Body height 62 in 62 in [facility] ([facility]) Heart rate 70 /min 70 /min [facility] ([facility]) Inhaled oxygen 98 % 98 % [facility] ([facility]) Body mass index 21.9 kg/m2 21.9 kg/m2 [facility] (A mmir (BMI) [Ratio] [facility]) Diastolic blood 76 mm[Hg] 76 mm[Hg] [facility] ([facility]) Systolic blood 120 mm[Hg] 120 mm[Hg] [facility] ([facility]) Body weight 120 lb 120 lb [facility] ([facility]) Body height 62 in 62 in [facility] ([facility]) Heart rate 70 /min 70 /min [facility] ([facility]) Inhaled oxygen 98 % 98 % [facility] ([facility] [facility]) Body mass index 21.9 kg/m2 21.9 kg/m2 [facility] (A mmir (BMI) [Ratio] [facility]) Diastolic blood 76 mm[Hg] 76 mm[Hg] [facility] ([facility]) Systolic blood 120 mm[Hg] 120 mm[Hg] [facility] ([facility]) Body weight 120 lb 120 lb [facility] ([facility]) Body height 62 in 62 in [facility] ([facility]) Heart rate 70 /min 70 /min [facility] ([facility]) Inhaled oxygen 98 % 98 % [facility] ([facility] [facility]) Body mass index 21.9 kg/m2 21.9 kg/m2 [facility] (A mmir (BMI) [Ratio] [facility]) Diastolic blood 76 mm[Hg] 76 mm[Hg] [facility] ([facility]) Systolic blood 120 mm[Hg] 120 mm[Hg] [facility] ([facility]) Body weight 120 lb 120 lb [facility] ([facility]) Body height 62 in 62 in [facility] ([facility]) Heart rate 70 /min 70 /min [facility] ([facility]) Inhaled oxygen 98 % 98 % [facility] ([facility] [place] [facility]) Body mass index 21.9 kg/m2 21.9 kg/m2 [facility] (A mmir (BMI) [Ratio] [facility]) Diastolic blood 76 mm[Hg] 76 mm[Hg] [facility] ([facility]) Systolic blood 120 mm[Hg] 120 mm[Hg] [facility] ([facility]) Body weight 120 lb 120 lb [facility] ([facility]) Body height 62 in 62 in [facility] ([facility]) Heart rate 74 /min 74 /min [facility] ([facility]) Inhaled oxygen 98 % 98 % [facility] ([facility] [place] [facility]) Body mass index 21.9 kg/m2 21.9 kg/m2 [facility] (A mmir (BMI) [Ratio] [facility]) Diastolic blood 70 mm[Hg] 70 mm[Hg] [facility] ([facility]) Systolic blood 110 mm[Hg] 110 mm[Hg] [facility] ([facility] [facility]) Body weight 120 lb 120 lb [facility] ([facility]) Body height 62 in 62 in [facility] ([facility]) Heart rate 74 /min 74 /min [facility] ([facility]) Inhaled oxygen 98 % 98 % [facility] ([facility] [place] [facility]) Body mass index 21.9 kg/m2 21.9 kg/m2 [facility] (A mmir (BMI) [Ratio] [facility]) Diastolic blood 70 mm[Hg] 70 mm[Hg] [facility] ([facility]) Systolic blood 110 mm[Hg] 110 mm[Hg] [facility] ([facility] [facility]) Body weight 120 lb 120 lb [facility] ([facility]) Body height 62 in 62 in [facility] ([facility]) Heart rate 74 /min 74 /min [facility] ([facility]) Inhaled oxygen 98 % 98 % [facility] ([facility] [place] [facility]) Body mass index 21.9 kg/m2 21.9 kg/m2 [facility] (A mmir (BMI) [Ratio] [facility]) Diastolic blood 70 mm[Hg] 70 mm[Hg] [facility] ([facility]) Systolic blood 110 mm[Hg] 110 mm[Hg] [facility] ([facility] [facility]) Body weight 120 lb 120 lb [facility] ([facility]) Body height 62 in 62 in [facility] ([facility]) Heart rate 74 /min 74 /min [facility] ([facility]) Inhaled oxygen 98 % 98 % [facility] ([facility] [place] [facility]) Body mass index 21.9 kg/m2 21.9 kg/m2 [facility] (A mmir (BMI) [Ratio] [facility]) Diastolic blood 70 mm[Hg] 70 mm[Hg] [facility] ([facility]) Systolic blood 110 mm[Hg] 110 mm[Hg] [facility] ([facility]) Body weight 120 lb 120 lb [facility] ([facility]) Body height 62 in 62 in [facility] ([facility]) Heart rate 68 /min 68 /min [facility] ([facility]) Inhaled oxygen 98 % 98 % [facility] ([facility] [facility]) Body mass index 21.9 kg/m2 21.9 kg/m2 [facility] (A mmir (BMI) [Ratio] [facility]) Diastolic blood 60 mm[Hg] 60 mm[Hg] [facility] ([facility]) Systolic blood 100 mm[Hg] 100 mm[Hg] [facility] ([facility]) Body weight 120 lb 120 lb [facility] ([facility]) Body height 62 in 62 [facility] Heart rate 68 /min 68 /min [facility] ([facility]) Inhaled oxygen 98 % 98 % [facility] ([facility] [facility]) Body mass index 21.9 kg/m2 21.9 kg/m2 [facility] (A mmir (BMI) [Ratio] [facility]) Diastolic blood 60 mm[Hg] 60 mm[Hg] [facility] (A [facility]) Systolic blood 100 mm[Hg] 100 mm[Hg] [facility] ([facility]) Body weight 120 lb 120 lb [facility] ([facility]) Body height 62 in 62 in [facility] Heart rate 68 /min 68 /min [facility] ([facility]) Inhaled oxygen 98 % 98 % [facility] ([facility] [facility]) Body mass index 21.9 kg/m2 21.9 kg/m2 [facility] (A mmir (BMI) [Ratio] [facility]) Diastolic blood 60 mm[Hg] 60 mm[Hg] [facility] (A [facility]) Systolic blood 100 mm[Hg] 100 mm[Hg] [facility] ([facility]) Body weight 120 lb 120 lb [facility] ([facility]) Body height 62 in 62 in [facility] Heart rate 68 /min 68 /min [facility] ([facility]) Inhaled oxygen 98 % 98 % [facility] ([facility] [facility]) Body mass index 21.9 kg/m2 21.9 kg/m2 [facility] (A mmir (BMI) [Ratio] [facility]) Diastolic blood 60 mm[Hg] 60 mm[Hg] [facility] (A mm[facility]) Systolic blood 100 mm[Hg] 100 mm[Hg] [facility] ([facility]) Body weight 120 lb 120 lb [facility] ([facility]) Body height 62 in 62 in [facility] ([facility]) Heart rate 68 /min 68 /min [facility] ([facility]) Inhaled oxygen 98 % 98 % [facility] ([facility] [facility]) Body mass index 21.9 kg/m2 21.9 kg/m2 [facility] (A mmir (BMI) [Ratio] [facility]) Diastolic blood 60 mm[Hg] 60 mm[Hg] [facility] (A [facility]) Systolic blood 100 mm[Hg] 100 mm[Hg] [facility] ([facility]) Body weight 120 lb 120 lb [facility] ([facility]) Body height 62 in 62 in [facility] ([facility]) Heart rate 68 /min 68 /min [facility] ([facility]) Inhaled oxygen 98 % 98 % [facility] ([facility] [facility]) Body mass index 21.9 kg/m2 21.9 kg/m2 [facility] (A mmir (BMI) [Ratio] [facility]) Diastolic blood 60 mm[Hg] 60 mm[Hg] [facility] (A [facility]) Systolic blood 100 mm[Hg] 100 mm[Hg] [facility] ([facility]) Body weight 120 lb 120 lb [facility] ([facility]) Body height 62 in 62 in [facility] ([facility]) Inhaled oxygen 98 % 98 % [facility] ([facility] [place] [facility]) Body mass index 21.9 kg/m2 21.9 kg/m2 [facility] (A mmir (BMI) [Ratio] [facility]) Diastolic blood 60 mm[Hg] 60 mm[Hg] [facility] ([facility]) Systolic blood 100 mm[Hg] 100 mm[Hg] [facility] ([facility] [facility]) Body weight 120 lb 120 lb [facility] ([facility]) Body height 62 in 62 in [facility] ([facility]) Heart rate 68 /min 68 /min [facility] ([facility]) Heart rate 68 /min 68 /min [facility] ([facility]) Inhaled oxygen 98 % 98 % [facility] ([facility] [place] [facility]) Body mass index 21.9 kg/m2 21.9 kg/m2 [facility] (A mmir (BMI) [Ratio] [facility]) Diastolic blood 60 mm[Hg] 60 mm[Hg] [facility] (A mm[facility]) Systolic blood 100 mm[Hg] 100 mm[Hg] [facility] ([facility]) Body weight 120 lb 120 lb [facility] ([facility]) Body height 62 in 62 in [facility] ([facility]) Heart rate 68 /min 68 /min [facility] ([facility]) Inhaled oxygen 98 % 98 % [facility] ([facility] [facility]) Body mass index 21.9 kg/m2 21.9 kg/m2 [facility] (A mmir (BMI) [Ratio] [facility]) Diastolic blood 60 mm[Hg] 60 mm[Hg] [facility] (A [facility]) Systolic blood 100 mm[Hg] 100 mm[Hg] [facility] ([facility]) Body weight 120 lb 120 lb [facility] ([facility]) Body height 62 in 62 in [facility] ([facility]) Heart rate 68 /min 68 /min [facility] ([facility]) Inhaled oxygen 98 % 98 % [facility] ([facility] [place] [facility]) Body mass index 21.9 kg/m2 21.9 kg/m2 [facility] (A mmir (BMI) [Ratio] [facility]) Diastolic blood 60 mm[Hg] 60 mm[Hg] [facility] (A mm[facility]) Systolic blood 100 mm[Hg] 100 mm[Hg] [facility] ([facility]) Body weight 120 lb 120 lb [facility] ([facility]) Body height 62 in 62 in [facility] ([facility]) Heart rate 68 /min 68 /min [facility] ([facility]) Inhaled oxygen 98 % 98 % [facility] ([facility] [facility]) Body mass index 21.9 kg/m2 21.9 kg/m2 [facility] (A mmir (BMI) [Ratio] [facility]) Diastolic blood 60 mm[Hg] 60 mm[Hg] [facility] (A mm[facility]) Systolic blood 100 mm[Hg] 100 mm[Hg] [facility] ([facility]) Body weight 120 lb 120 lb [facility] ([facility]) Body height 62 in 62 in [facility] ([facility]) Heart rate 68 /min 68 /min [facility] ([facility]) Inhaled oxygen 98 % 98 % [facility] ([facility] [place] [facility]) Body mass index 21.9 kg/m2 21.9 kg/m2 [facility] (A mmir (BMI) [Ratio] [facility]) Diastolic blood 60 mm[Hg] 60 mm[Hg] [facility] (A mm[facility] pressure [facility]) Systolic blood 100 mm[Hg] 100 mm[Hg] [facility] ([facility]) Body weight 120 lb 120 lb [facility] ([facility]) Body height 62 in 62 in [facility] ([facility]) Heart rate 68 /min 68 /min [facility] ([facility]) Inhaled oxygen 98 % 98 % [facility] ([facility] [place] [facility]) Body mass index 21.9 kg/m2 21.9 kg/m2 [facility] (A mmir (BMI) [Ratio] [facility]) Diastolic blood 60 mm[Hg] 60 mm[Hg] [facility] (A mm[facility] pressure [facility]) Systolic blood 100 mm[Hg] 100 mm[Hg] [facility] ([facility]) Body weight 120 lb 120 lb [facility] ([facility]) Body height 62 in 62 in [facility] ([facility]) Heart rate 68 /min 68 /min [facility] ([facility]) Inhaled oxygen 98 % 98 % [facility] ([facility] [place] [facility]) Body mass index 21.9 kg/m2 21.9 kg/m2 [facility] (A mmir (BMI) [Ratio] [facility]) Diastolic blood 60 mm[Hg] 60 mm[Hg] [facility] (A mm[facility] pressure [facility]) Systolic blood 100 mm[Hg] 100 mm[Hg] [facility] ([facility]) Body weight 120 lb 120 lb [facility] ([facility]) Body height 62 in 62 in [facility] ([facility]) Heart rate 68 /min 68 /min [facility] ([facility]) Inhaled oxygen 98 % 98 % [facility] ([facility] [facility]) Body mass index 21.9 kg/m2 21.9 kg/m2 [facility] (A mmir (BMI) [Ratio] [facility]) Diastolic blood 60 mm[Hg] 60 mm[Hg] [facility] (A mm[facility] pressure [facility]) Systolic blood 100 mm[Hg] 100 mm[Hg] [facility] ([facility]) Body weight 120 lb 120 lb [facility] ([facility]) Body height 62 in 62 in [facility] ([facility]) Diastolic blood 60 mm[Hg] 60 mm[Hg] [facility] (A mm[facility] pressure [facility]) Systolic blood 100 mm[Hg] 100 mm[Hg] [facility] ([facility]) Body weight 120 lb 120 lb [facility] ([facility]) Body height 62 in 62 in [facility] ([facility]) Heart rate 68 /min 68 /min [facility] ([facility]) Inhaled oxygen 98 % 98 % [facility] ([facility] [place] [facility]) Body mass index 21.9 kg/m2 21.9 kg/m2 [facility] (A mmir (BMI) [Ratio] [facility]) Heart rate 68 /min 68 /min [facility] ([facility]) Inhaled oxygen 98 % 98 % [facility] ([facility] [place] [facility]) Body mass index 21.9 kg/m2 21.9 kg/m2 [facility] (A mmir (BMI) [Ratio] [facility]) Diastolic blood 60 mm[Hg] 60 mm[Hg] [facility] (A mm[facility] pressure [facility]) Systolic blood 100 mm[Hg] 100 mm[Hg] [facility] ([facility]) Body weight 120 lb 120 lb [facility] ([facility]) Body height 62 in 62 in [facility] ([facility]) Heart rate 68 /min 68 /min [facility] ([facility]) Inhaled oxygen 98 % 98 % [facility] ([facility] [place] [facility]) Body mass index 21.9 kg/m2 21.9 kg/m2 [facility] (A mmir (BMI) [Ratio] [facility]) Diastolic blood 60 mm[Hg] 60 mm[Hg] [facility] (A mm[facility] pressure [facility]) Systolic blood 100 mm[Hg] 100 mm[Hg] [facility] ([facility]) Body weight 120 lb 120 lb [facility] ([facility]) Body height 62 in 62 in [facility] ([facility]) Heart rate 68 /min 68 /min [facility] ([facility]) Inhaled oxygen 98 % 98 % [facility] ([facility] [place] [facility]) Body mass index 21.9 kg/m2 21.9 kg/m2 [facility] (A mmir (BMI) [Ratio] [facility]) Diastolic blood 60 mm[Hg] 60 mm[Hg] [facility] (A mm[facility] pressure [facility]) Systolic blood 100 mm[Hg] 100 mm[Hg] [facility] ([facility]) Body weight 120 lb 120 lb [facility] ([facility]) Body height 62 in 62 in [facility] ([facility]) Heart rate 68 /min 68 /min [facility] ([facility]) Inhaled oxygen 98 % 98 % [facility] ([facility] [place] [facility]) Body mass index 21.9 kg/m2 21.9 kg/m2 [facility] (A mmir (BMI) [Ratio] [facility]) Diastolic blood 60 mm[Hg] 60 mm[Hg] [facility] (A mm[facility] pressure [facility]) Systolic blood 100 mm[Hg] 100 mm[Hg] [facility] ([facility]) Body weight 120 lb 120 lb [facility] ([facility]) Body height 62 in 62 in [facility] ([facility]) Heart rate 68 /min 68 /min [facility] ([facility]) Inhaled oxygen 98 % 98 % [facility] ([facility] [place] [facility]) Body mass index 21.9 kg/m2 21.9 kg/m2 [facility] (A mmir (BMI) [Ratio] [facility]) Diastolic blood 60 mm[Hg] 60 mm[Hg] [facility] (A mm[facility] pressure [facility]) Systolic blood 100 mm[Hg] 100 mm[Hg] [facility] ([facility]) Body weight 120 lb 120 lb [facility] ([facility]) Body height 62 in 62 in [facility] ([facility]) Heart rate 68 /min 68 /min [facility] ([facility]) Inhaled oxygen 98 % 98 % [facility] ([facility] [facility]) Body mass index 21.9 kg/m2 21.9 kg/m2 [facility] (A mmir (BMI) [Ratio] [facility]) Diastolic blood 60 mm[Hg] 60 mm[Hg] [facility] (A mm[facility] pressure [facility]) Systolic blood 100 mm[Hg] 100 mm[Hg] [facility] ([facility]) Body weight 120 lb 120 lb [facility] ([facility]) Body height 62 in 62 in [facility] ([facility]) Heart rate 68 /min 68 /min [facility] ([facility]) Inhaled oxygen 98 % 98 % [facility] ([facility]) Body mass index 21.9 kg/m2 21.9 kg/m2 [facility] (A mmir (BMI) [Ratio] [facility]) Diastolic blood 60 mm[Hg] 60 mm[Hg] [facility] ([facility]) Systolic blood 100 mm[Hg] 100 mm[Hg] [facility] ([facility]) Body weight 120 lb 120 lb [facility] ([facility]) Body height 62 in 62 in [facility] ([facility]) Heart rate 68 /min 68 /min [facility] ([facility]) Inhaled oxygen 98 % 98 % [facility] ([facility]) Body mass index 21.9 kg/m2 21.9 kg/m2 [facility] (A mmir (BMI) [Ratio] [facility]) Diastolic blood 60 mm[Hg] 60 mm[Hg] [facility] ([facility]) Systolic blood 100 mm[Hg] 100 mm[Hg] [facility] ([facility]) Body weight 120 lb 120 lb [facility] ([facility]) Body height 62 in 62 in [facility] ([facility]) Heart rate 68 /min 68 /min [facility] ([facility]) Inhaled oxygen 98 % 98 % [facility] ([facility] [place] [facility]) Body mass index 21.9 kg/m2 21.9 kg/m2 [facility] (A mmir (BMI) [Ratio] [facility]) Diastolic blood 60 mm[Hg] 60 mm[Hg] [facility] ([facility]) Systolic blood 100 mm[Hg] 100 mm[Hg] [facility] ([facility]) Body weight 120 lb 120 lb [facility] ([facility]) Body height 62 in 62 in [facility] ([facility]) Heart rate 68 /min 68 /min [facility] ([facility]) Inhaled oxygen 98 % 98 % [facility] ([facility] [place] [facility]) Body mass index 21.9 kg/m2 21.9 kg/m2 [facility] (A mmir (BMI) [Ratio] [facility]) Diastolic blood 60 mm[Hg] 60 mm[Hg] [facility] ([facility]) Systolic blood 100 mm[Hg] 100 mm[Hg] [facility] ([facility] [facility]) Body weight 120 lb 120 lb [facility] ([facility]) Body height 62 in 62 in [facility] ([facility]) Heart rate 68 /min 68 /min [facility] ([facility]) Inhaled oxygen 98 % 98 % [facility] ([facility] [place] [facility]) Body mass index 21.9 kg/m2 21.9 kg/m2 [facility] (A mmir (BMI) [Ratio] [facility]) Diastolic blood 60 mm[Hg] 60 mm[Hg] [facility] ([facility]) Systolic blood 100 mm[Hg] 100 mm[Hg] [facility] ([facility]) Body weight 120 lb 120 lb [facility] ([facility]) Body height 62 in 62 in [facility] ([facility]) Heart rate 68 /min 68 /min [facility] ([facility]) Inhaled oxygen 98 % 98 % [facility] ([facility] [place] [facility]) Body mass index 21.9 kg/m2 21.9 kg/m2 [facility] (A mmir (BMI) [Ratio] [facility]) Diastolic blood 60 mm[Hg] 60 mm[Hg] [facility] ([facility]) Systolic blood 100 mm[Hg] 100 mm[Hg] [facility] ([facility]) Body weight 120 lb 120 lb [facility] ([facility]) Body height 62 in 62 in [facility] ([facility]) Heart rate 68 /min 68 /min [facility] ([facility]) Inhaled oxygen 98 % 98 % [facility] ([facility] [place] [facility]) Body mass index 21.9 kg/m2 21.9 kg/m2 [facility] (A mmir (BMI) [Ratio] [facility]) Diastolic blood 60 mm[Hg] 60 mm[Hg] [facility] ([facility]) Systolic blood 100 mm[Hg] 100 mm[Hg] [facility] ([facility] [facility]) Body weight 120 lb 120 lb [facility] ([facility]) Body height 62 in 62 in [facility] ([facility]) Heart rate 68 /min 68 /min [facility] ([facility]) Inhaled oxygen 98 % 98 % [facility] ([facility] [place] [facility]) Body mass index 21.9 kg/m2 21.9 kg/m2 [facility] (A mmir (BMI) [Ratio] [facility]) Diastolic blood 60 mm[Hg] 60 mm[Hg] [facility] ([facility]) Systolic blood 100 mm[Hg] 100 mm[Hg] [facility] ([facility] [facility]) Body weight 120 lb 120 lb [facility] ([facility]) Body height 62 in 62 in [facility] ([facility]) Heart rate 68 /min 68 /min [facility] ([facility]) Inhaled oxygen 98 % 98 % [facility] ([facility] [place] [facility]) Body mass index 21.9 kg/m2 21.9 kg/m2 [facility] (A mmir (BMI) [Ratio] [facility]) Diastolic blood 60 mm[Hg] 60 mm[Hg] [facility] ([facility]) Systolic blood 100 mm[Hg] 100 mm[Hg] [facility] ([facility] [place] [facility]) Body weight 120 lb 120 lb [facility] ([facility]) Body height 62 in 62 in [facility] ([facility]) Heart rate 68 /min 68 /min [facility] ([facility]) Inhaled oxygen 98 % 98 % [facility] ([facility] [place] [facility]) Body mass index 21.9 kg/m2 21.9 kg/m2 [facility] (A mmir (BMI) [Ratio] [facility]) Diastolic blood 60 mm[Hg] 60 mm[Hg] [facility] ([facility]) Systolic blood 100 mm[Hg] 100 mm[Hg] [facility] ([facility] [place] [facility]) Body weight 120 lb 120 lb [facility] ([facility]) Body height 62 in 62 in [facility] ([facility]) Heart rate 76 /min 76 /min [facility] ([facility]) Inhaled oxygen 97 % 97 % [facility] ([facility] [place] [facility]) Diastolic blood 68 mm[Hg] 68 mm[Hg] [facility] ([facility]) Systolic blood 116 mm[Hg] 116 mm[Hg] [facility] ([facility] [place] [facility]) Body weight 125 lb 125 lb [facility] ([facility]) Heart rate 76 /min 76 /min [facility] ([facility]) Inhaled oxygen 97 % 97 % [facility] ([facility] [place] [facility]) Diastolic blood 68 mm[Hg] 68 mm[Hg] [facility] ([facility]) Systolic blood 116 mm[Hg] 116 mm[Hg] [facility] ([facility] [place] [facility]) Body weight 125 lb 125 lb [facility] ([facility]) Heart rate 76 /min 76 /min [facility] ([facility]) Inhaled oxygen 97 % 97 % [facility] ([facility] [place] [facility]) Diastolic blood 68 mm[Hg] 68 mm[Hg] [facility] ([facility]) Systolic blood 116 mm[Hg] 116 mm[Hg] [facility] ([facility] [place] [facility]) Body weight 125 lb 125 lb [facility] ([facility]) Heart rate 76 /min 76 /min [facility] ([facility]) Inhaled oxygen 97 % 97 % [facility] ([facility] [place] [facility]) Diastolic blood 68 mm[Hg] 68 mm[Hg] [facility] ([facility]) Systolic blood 116 mm[Hg] 116 mm[Hg] [facility] ([facility] [place] [facility]) Body weight 125 lb 125 lb [facility] ([facility]) Heart rate 76 /min 76 /min [facility] ([facility]) Inhaled oxygen 97 % 97 % [facility] ([facility] [place] [facility]) Diastolic blood 68 mm[Hg] 68 mm[Hg] [facility] ([facility]) Systolic blood 116 mm[Hg] 116 mm[Hg] [facility] ([facility] [place] [facility]) Body weight 125 lb 125 lb [facility] ([facility]) Heart rate 76 /min 76 /min [facility] ([facility]) Inhaled oxygen 97 % 97 % [facility] ([facility] [place] [facility]) Diastolic blood 68 mm[Hg] 68 mm[Hg] [facility] ([facility]) Systolic blood 116 mm[Hg] 116 mm[Hg] [facility] ([facility] [place] [facility]) Body weight 125 lb 125 lb [facility] ([facility]) Heart rate 76 /min 76 /min [facility] ([facility]) Inhaled oxygen 97 % 97 % [facility] ([facility] [place] [facility]) Diastolic blood 68 mm[Hg] 68 mm[Hg] [facility] ([facility]) Systolic blood 116 mm[Hg] 116 mm[Hg] [facility] ([facility] [place] [facility]) Body weight 125 lb 125 lb [facility] ([facility]) Heart rate 76 /min 76 /min [facility] ([facility]) Inhaled oxygen 97 % 97 % [facility] ([facility] [place] [facility]) Diastolic blood 68 mm[Hg] 68 mm[Hg] [facility] ([facility]) Systolic blood 116 mm[Hg] 116 mm[Hg] [facility] ([facility] [place] [facility]) Body weight 125 lb 125 lb [facility] ([facility]) Heart rate 76 /min 76 /min [facility] ([facility]) Inhaled oxygen 97 % 97 % [facility] ([facility] [place] [facility]) Diastolic blood 68 mm[Hg] 68 mm[Hg] [facility] ([facility]) Systolic blood 116 mm[Hg] 116 mm[Hg] [facility] ([facility] [place] [facility]) Body weight 125 lb 125 lb [facility] ([facility]) Heart rate 76 /min 76 /min [facility] ([facility]) Inhaled oxygen 97 % 97 % [facility] ([facility] [place] [facility]) Diastolic blood 68 mm[Hg] 68 mm[Hg] [facility] ([facility]) Systolic blood 116 mm[Hg] 116 mm[Hg] [facility] ([facility] [place] [facility]) Body weight 125 lb 125 lb [facility] ([facility]) Heart rate 76 /min 76 /min [facility] ([facility]) Inhaled oxygen 97 % 97 % [facility] ([facility] [place] [facility]) Diastolic blood 68 mm[Hg] 68 mm[Hg] [facility] ([facility]) Systolic blood 116 mm[Hg] 116 mm[Hg] [facility] ([facility] [place] [facility]) Body weight 125 lb 125 lb [facility] ([facility]) Heart rate 76 /min 76 /min [facility] ([facility]) Inhaled oxygen 97 % 97 % [facility] ([facility] [place] [facility]) Diastolic blood 68 mm[Hg] 68 mm[Hg] [facility] ([facility]) Systolic blood 116 mm[Hg] 116 mm[Hg] [facility] ([facility] [place] [facility]) Body weight 125 lb 125 lb [facility] ([facility]) Heart rate 76 /min 76 /min [facility] ([facility]) Inhaled oxygen 97 % 97 % [facility] ([facility] [place] [facility]) Diastolic blood 68 mm[Hg] 68 mm[Hg] [facility] ([facility]) Systolic blood 116 mm[Hg] 116 mm[Hg] [facility] ([facility] [place] [facility]) Body weight 125 lb 125 lb [facility] ([facility]) Heart rate 76 /min 76 /min [facility] ([facility]) Inhaled oxygen 97 % 97 % [facility] ([facility] [place] [facility]) Diastolic blood 68 mm[Hg] 68 mm[Hg] [facility] ([facility]) Systolic blood 116 mm[Hg] 116 mm[Hg] [facility] ([facility] [place] [facility]) Body weight 125 lb 125 lb [facility] ([facility]) Heart rate 76 /min 76 /min [facility] ([facility]) Inhaled oxygen 97 % 97 % [facility] ([facility] [place] [facility]) Diastolic blood 68 mm[Hg] 68 mm[Hg] [facility] ([facility]) Systolic blood 116 mm[Hg] 116 mm[Hg] [facility] ([facility] [place] [facility]) Body weight 125 lb 125 lb [facility] ([facility]) Heart rate 76 /min 76 /min [facility] ([facility]) Inhaled oxygen 97 % 97 % [facility] ([facility] [place] [facility]) Diastolic blood 68 mm[Hg] 68 mm[Hg] [facility] ([facility]) Systolic blood 116 mm[Hg] 116 mm[Hg] [facility] ([facility] [place] [facility]) Body weight 125 lb 125 lb [facility] ([facility]) Heart rate 76 /min 76 /min [facility] ([facility]) Inhaled oxygen 97 % 97 % [facility] ([facility] [place] [facility]) Diastolic blood 68 mm[Hg] 68 mm[Hg] [facility] ([facility]) Systolic blood 116 mm[Hg] 116 mm[Hg] [facility] ([facility] [place] [facility]) Body weight 125 lb 125 lb [facility] ([facility]) Heart rate 76 /min 76 /min [facility] ([facility]) Inhaled oxygen 97 % 97 % [facility] ([facility] [place] [facility]) Diastolic blood 68 mm[Hg] 68 mm[Hg] [facility] ([facility]) Systolic blood 116 mm[Hg] 116 mm[Hg] [facility] ([facility] [place] [facility]) Body weight 125 lb 125 lb [facility] ([facility]) Heart rate 76 /min 76 /min [facility] ([facility]) Inhaled oxygen 97 % 97 % [facility] ([facility] [place] [facility]) Diastolic blood 68 mm[Hg] 68 mm[Hg] [facility] ([facility]) Systolic blood 116 mm[Hg] 116 mm[Hg] [facility] ([facility] [place] [facility]) Body weight 125 lb 125 lb [facility] ([facility]) Heart rate 76 /min 76 /min [facility] ([facility]) Inhaled oxygen 97 % 97 % [facility] ([facility] [place] [facility]) Diastolic blood 68 mm[Hg] 68 mm[Hg] [facility] ([facility]) Systolic blood 116 mm[Hg] 116 mm[Hg] [facility] ([facility] [place] [facility]) Body weight 125 lb 125 lb [facility] ([facility]) Heart rate 76 /min 76 /min [facility] ([facility]) Inhaled oxygen 97 % 97 % [facility] ([facility] [place] [facility]) Diastolic blood 68 mm[Hg] 68 mm[Hg] [facility] ([facility]) Systolic blood 116 mm[Hg] 116 mm[Hg] [facility] ([facility] [place] [facility]) Body weight 125 lb 125 lb [facility] ([facility]) Heart rate 76 /min 76 /min [facility] ([facility]) Inhaled oxygen 97 % 97 % [facility] ([facility] [place] [facility]) Diastolic blood 68 mm[Hg] 68 mm[Hg] [facility] ([facility]) Systolic blood 116 mm[Hg] 116 mm[Hg] [facility] ([facility] [place] [facility]) Body weight 125 lb 125 lb [facility] ([facility]) Heart rate 76 /min 76 /min [facility] ([facility]) Inhaled oxygen 97 % 97 % [facility] ([facility] [place] [facility]) Diastolic blood 68 mm[Hg] 68 mm[Hg] [facility] ([facility]) Systolic blood 116 mm[Hg] 116 mm[Hg] [facility] ([facility] [facility]) Body weight 125 lb 125 lb [facility] ([facility]) Heart rate 76 /min 76 /min [facility] ([facility]) Inhaled oxygen 97 % 97 % [facility] ([facility] [place] [facility]) Diastolic blood 68 mm[Hg] 68 mm[Hg] [facility] ([facility]) Systolic blood 116 mm[Hg] 116 mm[Hg] [facility] ([facility] [facility]) Body weight 125 lb 125 lb [facility] ([facility]) Heart rate 76 /min 76 /min [facility] ([facility]) Inhaled oxygen 97 % 97 % [facility] ([facility] [place] [facility]) Diastolic blood 68 mm[Hg] 68 mm[Hg] [facility] ([facility]) Systolic blood 116 mm[Hg] 116 mm[Hg] [facility] ([facility] [place] [facility]) Body weight 125 lb 125 lb [facility] ([facility]) Heart rate 76 /min 76 /min [facility] ([facility]) Inhaled oxygen 97 % 97 % [facility] ([facility] [place] [facility]) Diastolic blood 68 mm[Hg] 68 mm[Hg] [facility] ([facility]) Systolic blood 116 mm[Hg] 116 mm[Hg] [facility] ([facility] [facility]) Body weight 125 lb 125 lb [facility] ([facility]) Heart rate 76 /min 76 /min [facility] ([facility]) Inhaled oxygen 97 % 97 % [facility] ([facility] [place] [facility]) Diastolic blood 68 mm[Hg] 68 mm[Hg] [facility] ([facility]) Systolic blood 116 mm[Hg] 116 mm[Hg] [facility] ([facility] [facility]) Body weight 125 lb 125 lb [facility] ([facility]) Heart rate 76 /min 76 /min [facility] ([facility]) Inhaled oxygen 97 % 97 % [facility] ([facility] [place] [facility]) Diastolic blood 68 mm[Hg] 68 mm[Hg] [facility] ([facility]) Systolic blood 116 mm[Hg] 116 mm[Hg] [facility] ([facility] [facility]) Body weight 125 lb 125 lb [facility] ([facility]) Heart rate 76 /min 76 /min [facility] ([facility]) Inhaled oxygen 97 % 97 % [facility] ([facility] [place] [facility]) Diastolic blood 68 mm[Hg] 68 mm[Hg] [facility] ([facility]) Systolic blood 116 mm[Hg] 116 mm[Hg] [facility] ([facility] [facility]) Body weight 125 lb 125 lb [facility] ([facility]) Heart rate 76 /min 76 /min [facility] ([facility]) Inhaled oxygen 97 % 97 % [facility] ([facility] [place] [facility]) Diastolic blood 68 mm[Hg] 68 mm[Hg] [facility] ([facility]) Systolic blood 116 mm[Hg] 116 mm[Hg] [facility] ([facility] [facility]) Body weight 125 lb 125 lb [facility] ([facility]) Heart rate 76 /min 76 /min [facility] ([facility]) Inhaled oxygen 97 % 97 % [facility] ([facility] [place] [facility]) Diastolic blood 68 mm[Hg] 68 mm[Hg] [facility] ([facility]) Systolic blood 116 mm[Hg] 116 mm[Hg] [facility] ([facility] [place] [facility]) Body weight 125 lb 125 lb [facility] ([facility]) Heart rate 76 /min 76 /min [facility] ([facility]) Inhaled oxygen 97 % 97 % [facility] ([facility] [place] [facility]) Diastolic blood 68 mm[Hg] 68 mm[Hg] [facility] ([facility]) Systolic blood 116 mm[Hg] 116 mm[Hg] [facility] ([facility] [facility]) Body weight 125 lb 125 lb [facility] ([facility]) Heart rate 76 /min 76 /min [facility] ([facility]) Inhaled oxygen 97 % 97 % [facility] ([facility] [place] [facility]) Diastolic blood 68 mm[Hg] 68 mm[Hg] [facility] (A [facility] pressure [facility]) Systolic blood 116 mm[Hg] 116 mm[Hg] [facility] ([facility] [facility]) Body weight 125 lb 125 lb [facility] ([facility]) Inhaled oxygen 97 % 97 % [facility] ([facility] [place] [facility]) Diastolic blood 68 mm[Hg] 68 mm[Hg] [facility] ([facility]) Systolic blood 116 mm[Hg] 116 mm[Hg] [facility] ([facility] [facility]) Body weight 125 lb 125 lb [facility] ([facility]) Heart rate 76 /min 76 /min [facility] ([facility]) Heart rate 76 /min 76 /min [facility] ([facility]) Inhaled oxygen 97 % 97 % [facility] ([facility] [place] [facility]) Diastolic blood 68 mm[Hg] 68 mm[Hg] [facility] ([facility]) Systolic blood 116 mm[Hg] 116 mm[Hg] [facility] ([facility] [facility]) Body weight 125 lb 125 lb [facility] ([facility]) Heart rate 76 /min 76 /min [facility] ([facility]) Inhaled oxygen 97 % 97 % [facility] ([facility] [place] [facility]) Diastolic blood 68 mm[Hg] 68 mm[Hg] [facility] (A [facility]) Systolic blood 116 mm[Hg] 116 mm[Hg] [facility] ([facility] [facility]) Body weight 125 lb 125 lb [facility] ([facility]) Heart rate 76 /min 76 /min [facility] ([facility]) Inhaled oxygen 97 % 97 % [facility] ([facility] [place] [facility]) Diastolic blood 68 mm[Hg] 68 mm[Hg] [facility] ([facility]) Systolic blood 116 mm[Hg] 116 mm[Hg] [facility] ([facility] [facility]) Body weight 125 lb 125 lb [facility] ([facility]) Heart rate 76 /min 76 /min [facility] ([facility]) Inhaled oxygen 97 % 97 % [facility] ([facility] [place] [facility]) Diastolic blood 68 mm[Hg] 68 mm[Hg] [facility] ([facility]) Systolic blood 116 mm[Hg] 116 mm[Hg] [facility] ([facility] [facility]) Body weight 125 lb 125 lb [facility] ([facility]) Heart rate 76 /min 76 /min [facility] ([facility]) Inhaled oxygen 97 % 97 % [facility] ([facility] [place] [facility]) Diastolic blood 68 mm[Hg] 68 mm[Hg] [facility] (A mm[facility]) Systolic blood 116 mm[Hg] 116 mm[Hg] [facility] ([facility] [facility]) Body weight 125 lb 125 lb [facility] ([facility]) Heart rate 76 /min 76 /min [facility] ([facility]) Inhaled oxygen 97 % 97 % [facility] ([facility] [place] [facility]) Diastolic blood 68 mm[Hg] 68 mm[Hg] [facility] ([facility] mm[facility] pressure [facility]) Systolic blood 116 mm[Hg] 116 mm[Hg] [facility] ([facility] [facility]) Body weight 125 lb 125 lb [facility] ([facility]) Heart rate 76 /min 76 /min [facility] ([facility]) Inhaled oxygen 97 % 97 % [facility] ([facility] [place] [facility]) Diastolic blood 68 mm[Hg] 68 mm[Hg] [facility] ([facility] mm[facility] pressure [facility]) Systolic blood 116 mm[Hg] 116 mm[Hg] [facility] ([facility] [facility]) Body weight 125 lb 125 lb [facility] ([facility]) Heart rate 76 /min 76 /min [facility] ([facility]) Inhaled oxygen 97 % 97 % [facility] ([facility] [place] [facility]) Diastolic blood 68 mm[Hg] 68 mm[Hg] [facility] (A [facility]) Systolic blood 116 mm[Hg] 116 mm[Hg] [facility] ([facility] [facility]) Body weight 125 lb 125 lb [facility] ([facility]) Heart rate 76 /min 76 /min [facility] ([facility]) Inhaled oxygen 97 % 97 % [facility] ([facility] [place] [facility]) Diastolic blood 68 mm[Hg] 68 mm[Hg] [facility] (A mm[facility] pressure [facility]) Systolic blood 116 mm[Hg] 116 mm[Hg] [facility] ([facility] [facility]) Body weight 125 lb 125 lb [facility] ([facility]) Heart rate 76 /min 76 /min [facility] ([facility]) Inhaled oxygen 97 % 97 % [facility] ([facility] [place] [facility]) Diastolic blood 68 mm[Hg] 68 mm[Hg] [facility] (A [facility]) Systolic blood 116 mm[Hg] 116 mm[Hg] [facility] ([facility] [facility]) Body weight 125 lb 125 lb [facility] ([facility]) Heart rate 76 /min 76 /min [facility] ([facility]) Inhaled oxygen 97 % 97 % [facility] ([facility] [place] [facility]) Diastolic blood 68 mm[Hg] 68 mm[Hg] [facility] (A mm[facility] pressure [facility]) Systolic blood 116 mm[Hg] 116 mm[Hg] [facility] ([facility] [facility]) Body weight 125 lb 125 lb [facility] ([facility]) Heart rate 76 /min 76 /min [facility] ([facility]) Inhaled oxygen 97 % 97 % [facility] ([facility] [place] [facility]) Diastolic blood 68 mm[Hg] 68 mm[Hg] [facility] (A mm[facility] pressure [facility]) Systolic blood 116 mm[Hg] 116 mm[Hg] [facility] ([facility] [facility]) Body weight 125 lb 125 lb [facility] ([facility]) Heart rate 76 /min 76 /min [facility] ([facility]) Inhaled oxygen 97 % 97 % [facility] ([facility] [place] [facility]) Diastolic blood 68 mm[Hg] 68 mm[Hg] [facility] (A mm[facility] pressure [facility]) Systolic blood 116 mm[Hg] 116 mm[Hg] [facility] ([facility] [facility]) Body weight 125 lb 125 lb [facility] ([facility]) Heart rate 76 /min 76 /min [facility] ([facility]) Inhaled oxygen 97 % 97 % [facility] ([facility] [facility]) Diastolic blood 68 mm[Hg] 68 mm[Hg] [facility] (A mm[facility] pressure [facility]) Systolic blood 116 mm[Hg] 116 mm[Hg] [facility] ([facility] [facility]) Body weight 125 lb 125 lb [facility] ([facility]) Heart rate 76 /min 76 /min [facility] ([facility]) Inhaled oxygen 97 % 97 % [facility] ([facility] [facility]) Diastolic blood 68 mm[Hg] 68 mm[Hg] [facility] (A mm[facility] pressure [facility]) Systolic blood 116 mm[Hg] 116 mm[Hg] [facility] ([facility]) Body weight 125 lb 125 lb [facility] ([facility]) Heart rate 76 /min 76 /min [facility] ([facility]) Inhaled oxygen 97 % 97 % [facility] ([facility] [facility]) Diastolic blood 68 mm[Hg] 68 mm[Hg] [facility] (A mm[facility] pressure [facility]) Systolic blood 116 mm[Hg] 116 mm[Hg] [facility] ([facility]) Body weight 125 lb 125 lb [facility] ([facility]) Heart rate 76 /min 76 /min [facility] ([facility]) Inhaled oxygen 97 % 97 % [facility] ([facility] [facility]) Diastolic blood 68 mm[Hg] 68 mm[Hg] [facility] (A mm[facility] pressure [facility]) Systolic blood 116 mm[Hg] 116 mm[Hg] [facility] ([facility]) Body weight 125 lb 125 lb [facility] ([facility]) Heart rate 76 /min 76 /min [facility] ([facility]) Inhaled oxygen 97 % 97 % [facility] ([facility]) Diastolic blood 68 mm[Hg] 68 mm[Hg] [facility] (A mm[facility]) Systolic blood 116 mm[Hg] 116 mm[Hg] [facility] ([facility]) Body weight 125 lb 125 lb [facility] ([facility]) Heart rate 76 /min 76 /min [facility] ([facility]) Inhaled oxygen 97 % 97 % [facility] ([facility]) Diastolic blood 68 mm[Hg] 68 mm[Hg] [facility] ([facility]) Systolic blood 116 mm[Hg] 116 mm[Hg] [facility] ([facility]) Body weight 125 lb 125 lb [facility] ([facility]) Heart rate 76 /min 76 /min [facility] ([facility]) Inhaled oxygen 97 % 97 % [facility] ([facility]) Diastolic blood 68 mm[Hg] 68 mm[Hg] [facility] ([facility]) Systolic blood 116 mm[Hg] 116 mm[Hg] [facility] ([facility]) Body weight 125 lb 125 lb [facility] ([facility]) Heart rate 76 /min 76 /min [facility] ([facility]) Inhaled oxygen 97 % 97 % [facility] ([facility]) Diastolic blood 68 mm[Hg] 68 mm[Hg] [facility] ([facility]) Systolic blood 116 mm[Hg] 116 mm[Hg] [facility] ([facility]) Body weight 125 lb 125 lb [facility] ([facility]) Heart rate 76 /min 76 /min [facility] ([facility]) Inhaled oxygen 97 % 97 % [facility] ([facility]) Diastolic blood 68 mm[Hg] 68 mm[Hg] [facility] ([facility]) Systolic blood 116 mm[Hg] 116 mm[Hg] [facility] ([facility]) Body weight 125 lb 125 lb [facility] ([facility]) Heart rate 76 /min 76 /min [facility] ([facility]) Inhaled oxygen 97 % 97 % [facility] ([facility]) Diastolic blood 68 mm[Hg] 68 mm[Hg] [facility] ([facility]) Systolic blood 116 mm[Hg] 116 mm[Hg] [facility] ([facility]) Body weight 125 lb 125 lb [facility] ([facility]) Heart rate 76 /min 76 /min [facility] ([facility]) Inhaled oxygen 97 % 97 % [facility] ([facility]) Diastolic blood 68 mm[Hg] 68 mm[Hg] [facility] ([facility]) Systolic blood 116 mm[Hg] 116 mm[Hg] [facility] ([facility]) Body weight 125 lb 125 lb [facility] ([facility]) Heart rate 76 /min 76 /min [facility] ([facility]) Inhaled oxygen 97 % 97 % [facility] ([facility]) Diastolic blood 68 mm[Hg] 68 mm[Hg] [facility] ([facility]) Systolic blood 116 mm[Hg] 116 mm[Hg] [facility] ([facility]) Body weight 125 lb 125 lb [facility] ([facility]) Heart rate 76 /min 76 /min [facility] ([facility]) Inhaled oxygen 97 % 97 % [facility] ([facility]) Diastolic blood 68 mm[Hg] 68 mm[Hg] [facility] ([facility]) Systolic blood 116 mm[Hg] 116 mm[Hg] [facility] ([facility]) Body weight 125 lb 125 lb [facility] ([facility]) Heart rate 76 /min 76 /min [facility] ([facility]) Inhaled oxygen 97 % 97 % [facility] ([facility]) Diastolic blood 68 mm[Hg] 68 mm[Hg] [facility] ([facility]) Systolic blood 116 mm[Hg] 116 mm[Hg] [facility] ([facility]) Body weight 125 lb 125 lb [facility] ([facility]) Heart rate 76 /min 76 /min [facility] ([facility]) Inhaled oxygen 97 % 97 % [facility] ([facility]) Diastolic blood 68 mm[Hg] 68 mm[Hg] [facility] ([facility]) Systolic blood 116 mm[Hg] 116 mm[Hg] [facility] ([facility]) Body weight 125 lb 125 lb [facility] ([facility]) Heart rate 76 /min 76 /min [facility] ([facility]) Inhaled oxygen 97 % 97 % [facility] ([facility]) Diastolic blood 68 mm[Hg] 68 mm[Hg] [facility] ([facility]) Systolic blood 116 mm[Hg] 116 mm[Hg] [facility] ([facility]) Body weight 125 lb 125 lb [facility] ([facility]) Heart rate 76 /min 76 /min [facility] ([facility]) Inhaled oxygen 97 % 97 % [facility] ([facility]) Diastolic blood 68 mm[Hg] 68 mm[Hg] [facility] ([facility]) Systolic blood 116 mm[Hg] 116 mm[Hg] [facility] ([facility]) Body weight 125 lb 125 lb [facility] ([facility]) Heart rate 76 /min 76 /min [facility] ([facility]) Inhaled oxygen 97 % 97 % [facility] ([facility]) Diastolic blood 68 mm[Hg] 68 mm[Hg] [facility] ([facility]) Systolic blood 116 mm[Hg] 116 mm[Hg] [facility] ([facility]) Body weight 125 lb 125 lb [facility] ([facility]) Heart rate 76 /min 76 /min [facility] ([facility]) Inhaled oxygen 97 % 97 % [facility] ([facility]) Diastolic blood 68 mm[Hg] 68 mm[Hg] [facility] ([facility]) Systolic blood 116 mm[Hg] 116 mm[Hg] [facility] ([facility]) Body weight 125 lb 125 lb [facility] ([facility]) Heart rate 76 /min 76 /min [facility] ([facility]) Inhaled oxygen 97 % 97 % [facility] ([facility]) Diastolic blood 68 mm[Hg] 68 mm[Hg] [facility] ([facility]) Systolic blood 116 mm[Hg] 116 mm[Hg] [facility] ([facility]) Body weight 125 lb 125 lb [facility] ([facility]) Heart rate 76 /min 76 /min [facility] ([facility]) Inhaled oxygen 97 % 97 % [facility] ([facility]) Diastolic blood 68 mm[Hg] 68 mm[Hg] [facility] ([facility]) Systolic blood 116 mm[Hg] 116 mm[Hg] [facility] ([facility]) Body weight 125 lb 125 lb [facility] ([facility]) Heart rate 76 /min 76 /min [facility] ([facility]) Inhaled oxygen 97 % 97 % [facility] ([facility]) Diastolic blood 68 mm[Hg] 68 mm[Hg] [facility] ([facility]) Systolic blood 116 mm[Hg] 116 mm[Hg] [facility] ([facility]) Body weight 125 lb 125 lb [facility] ([facility]) Heart rate 76 /min 76 /min [facility] ([facility]) Inhaled oxygen 97 % 97 % [facility] ([facility]) Diastolic blood 68 mm[Hg] 68 mm[Hg] [facility] ([facility]) Systolic blood 116 mm[Hg] 116 mm[Hg] [facility] ([facility]) Body weight 125 lb 125 lb [facility] ([facility]) Heart rate 76 /min 76 /min [facility] ([facility]) Inhaled oxygen 97 % 97 % [facility] ([facility]) Diastolic blood 68 mm[Hg] 68 mm[Hg] [facility] ([facility]) Systolic blood 116 mm[Hg] 116 mm[Hg] [facility] ([facility]) Body weight 125 lb 125 lb [facility] ([facility]) Heart rate 76 /min 76 /min [facility] ([facility]) Inhaled oxygen 97 % 97 % [facility] ([facility]) Diastolic blood 68 mm[Hg] 68 mm[Hg] [facility] ([facility]) Systolic blood 116 mm[Hg] 116 mm[Hg] [facility] ([facility]) Body weight 125 lb 125 lb [facility] ([facility]) Heart rate 76 /min 76 /min [facility] ([facility]) Inhaled oxygen 97 % 97 % [facility] ([facility]) Diastolic blood 68 mm[Hg] 68 mm[Hg] [facility] ([facility]) Systolic blood 116 mm[Hg] 116 mm[Hg] [facility] ([facility]) Body weight 125 lb 125 lb [facility] ([facility]) Heart rate 76 /min 76 /min [facility] ([facility]) Inhaled oxygen 97 % 97 % [facility] ([facility]) Diastolic blood 68 mm[Hg] 68 mm[Hg] [facility] ([facility]) Systolic blood 116 mm[Hg] 116 mm[Hg] [facility] ([facility]) Body weight 125 lb 125 lb [facility] ([facility]) Heart rate 76 /min 76 /min [facility] ([facility]) Inhaled oxygen 97 % 97 % [facility] ([facility]) Diastolic blood 68 mm[Hg] 68 mm[Hg] [facility] ([facility]) Systolic blood 116 mm[Hg] 116 mm[Hg] [facility] ([facility]) Body weight 125 lb 125 lb [facility] ([facility]) Heart rate 76 /min 76 /min [facility] ([facility]) Inhaled oxygen 97 % 97 % [facility] ([facility] [facility]) Diastolic blood 68 mm[Hg] 68 mm[Hg] [facility] ([facility]) Systolic blood 116 mm[Hg] 116 mm[Hg] [facility] ([facility]) Body weight 125 lb 125 lb [facility] ([facility]) Heart rate 76 /min 76 /min [facility] ([facility]) Inhaled oxygen 97 % 97 % [facility] ([facility]) Diastolic blood 68 mm[Hg] 68 mm[Hg] [facility] ([facility]) Systolic blood 116 mm[Hg] 116 mm[Hg] [facility] ([facility]) Body weight 125 lb 125 lb [facility] ([facility]) Heart rate 76 /min 76 /min [facility] ([facility]) Inhaled oxygen 97 % 97 % [facility] ([facility]) Diastolic blood 68 mm[Hg] 68 mm[Hg] [facility] ([facility]) Systolic blood 116 mm[Hg] 116 mm[Hg] [facility] ([facility]) Body weight 125 lb 125 lb [facility] ([facility]) Heart rate 76 /min 76 /min [facility] ([facility]) Inhaled oxygen 97 % 97 % [facility] ([facility]) Diastolic blood 68 mm[Hg] 68 mm[Hg] [facility] ([facility]) Systolic blood 116 mm[Hg] 116 mm[Hg] [facility] ([facility]) Body weight 125 lb 125 lb [facility] ([facility]) Heart rate 76 /min 76 /min [facility] ([facility]) Inhaled oxygen 97 % 97 % [facility] ([facility]) Diastolic blood 68 mm[Hg] 68 mm[Hg] [facility] ([facility]) Systolic blood 116 mm[Hg] 116 mm[Hg] [facility] ([facility]) Body weight 125 lb 125 lb [facility] ([facility]) Heart rate 76 /min 76 /min [facility] ([facility]) Inhaled oxygen 97 % 97 % [facility] ([facility] [facility]) Diastolic blood 68 mm[Hg] 68 mm[Hg] [facility] ([facility]) Systolic blood 116 mm[Hg] 116 mm[Hg] [facility] ([facility]) Body weight 125 lb 125 lb [facility] ([facility]) Heart rate 76 /min 76 /min [facility] ([facility]) Inhaled oxygen 97 % 97 % [facility] ([facility]) Diastolic blood 68 mm[Hg] 68 mm[Hg] [facility] ([facility]) Systolic blood 116 mm[Hg] 116 mm[Hg] [facility] ([facility]) Body weight 125 lb 125 lb [facility] ([facility]) Heart rate 76 /min 76 /min [facility] ([facility]) Inhaled oxygen 97 % 97 % [facility] ([facility]) Diastolic blood 68 mm[Hg] 68 mm[Hg] [facility] ([facility]) Systolic blood 116 mm[Hg] 116 mm[Hg] [facility] ([facility]) Body weight 125 lb 125 lb [facility] ([facility]) Heart rate 76 /min 76 /min [facility] ([facility]) Inhaled oxygen 97 % 97 % [facility] ([facility]) Diastolic blood 68 mm[Hg] 68 mm[Hg] [facility] ([facility]) Systolic blood 116 mm[Hg] 116 mm[Hg] [facility] ([facility]) Body weight 125 lb 125 lb [facility] ([facility]) Heart rate 76 /min 76 /min [facility] ([facility]) Inhaled oxygen 97 % 97 % [facility] ([facility]) Diastolic blood 68 mm[Hg] 68 mm[Hg] [facility] ([facility]) Systolic blood 116 mm[Hg] 116 mm[Hg] [facility] ([facility]) Body weight 125 lb 125 lb [facility] ([facility]) Heart rate 76 /min 76 /min [facility] ([facility]) Inhaled oxygen 97 % 97 % [facility] ([facility]) Diastolic blood 68 mm[Hg] 68 mm[Hg] [facility] ([facility]) Systolic blood 116 mm[Hg] 116 mm[Hg] [facility] ([facility]) Body weight 125 lb 125 lb [facility] ([facility]) Heart rate 76 /min 76 /min [facility] ([facility]) Inhaled oxygen 97 % 97 % [facility] ([facility] [facility]) Diastolic blood 68 mm[Hg] 68 mm[Hg] [facility] ([facility]) Systolic blood 116 mm[Hg] 116 mm[Hg] [facility] ([facility]) Body weight 125 lb 125 lb [facility] ([facility]) Heart rate 76 /min 76 /min [facility] ([facility]) Inhaled oxygen 97 % 97 % [facility] ([facility]) Diastolic blood 68 mm[Hg] 68 mm[Hg] [facility] ([facility]) Systolic blood 116 mm[Hg] 116 mm[Hg] [facility] ([facility]) Body weight 125 lb 125 lb [facility] ([facility]) Heart rate 72 /min 72 /min [facility] ([facility]) Inhaled oxygen 97 % 97 % [facility] ([facility]) Diastolic blood 68 mm[Hg] 68 mm[Hg] [facility] ([facility]) Systolic blood 116 mm[Hg] 116 mm[Hg] [facility] ([facility]) Body weight 125 lb 125 lb [facility] ([facility]) Heart rate 72 /min 72 /min [facility] ([facility]) Inhaled oxygen 97 % 97 % [facility] ([facility]) Diastolic blood 68 mm[Hg] 68 mm[Hg] [facility] ([facility]) Systolic blood 116 mm[Hg] 116 mm[Hg] [facility] ([facility]) Body weight 125 lb 125 lb [facility] ([facility]) Diastolic blood 68 mm[Hg] 68 mm[Hg] [facility] ([facility]) Systolic blood 116 mm[Hg] 116 mm[Hg] [facility] ([facility]) Body weight 125 lb 125 lb [facility] ([facility]) Heart rate 72 /min 72 /min [facility] ([facility]) Inhaled oxygen 97 % 97 % [facility] ([facility]) Heart rate 72 /min 72 /min [facility] ([facility]) Inhaled oxygen 97 % 97 % [facility] ([facility]) Diastolic blood 68 mm[Hg] 68 mm[Hg] [facility] ([facility]) Systolic blood 116 mm[Hg] 116 mm[Hg] [facility] ([facility]) Body weight 125 lb 125 lb [facility] ([facility]) Heart rate 65 /min 65 /min [facility] ([facility]) Inhaled oxygen 97 % 97 % [facility] ([facility]) Body mass index 22.9 kg/m2 22.9 kg/m2 [facility] (A mmir (BMI) [Ratio] [facility]) Diastolic blood 60 mm[Hg] 60 mm[Hg] [facility] ([facility]) Systolic blood 100 mm[Hg] 100 mm[Hg] [facility] ([facility]) Body weight 125 lb 125 lb [facility] ([facility]) Body height 62 in 62 in [facility] ([facility]) Heart rate 65 /min 65 /min [facility] ([facility]) Inhaled oxygen 97 % 97 % [facility] ([facility]) Body mass index 22.9 kg/m2 22.9 kg/m2 [facility] (A mmir (BMI) [Ratio] [facility]) Diastolic blood 60 mm[Hg] 60 mm[Hg] [facility] ([facility]) Systolic blood 100 mm[Hg] 100 mm[Hg] [facility] ([facility]) Body weight 125 lb 125 lb [facility] ([facility]) Body height 62 in 62 in [facility] ([facility]) Heart rate 65 /min 65 /min [facility] ([facility]) Inhaled oxygen 97 % 97 % [facility] ([facility]) Body mass index 22.9 kg/m2 22.9 kg/m2 [facility] (A mmir (BMI) [Ratio] [facility]) Diastolic blood 60 mm[Hg] 60 mm[Hg] [facility] ([facility]) Systolic blood 100 mm[Hg] 100 mm[Hg] [facility] ([facility]) Body weight 125 lb 125 lb [facility] ([facility]) Body height 62 in 62 in [facility] ([facility]) Heart rate 65 /min 65 /min [facility] ([facility]) Inhaled oxygen 97 % 97 % [facility] ([facility]) Body mass index 22.9 kg/m2 22.9 kg/m2 [facility] (A mmir (BMI) [Ratio] [facility]) Diastolic blood 60 mm[Hg] 60 mm[Hg] [facility] ([facility]) Systolic blood 100 mm[Hg] 100 mm[Hg] [facility] ([facility]) Body weight 125 lb 125 lb [facility] ([facility]) Body height 62 in 62 in [facility] ([facility]) Heart rate 60 /min 60 /min [facility] ([facility]) Inhaled oxygen 98 % 98 % [facility] ([facility]) Body mass index 22.9 kg/m2 22.9 kg/m2 [facility] (A mmir (BMI) [Ratio] [facility]) Diastolic blood 60 mm[Hg] 60 mm[Hg] [facility] ([facility]) Systolic blood 100 mm[Hg] 100 mm[Hg] [facility] ([facility]) Body weight 125 lb 125 lb [facility] ([facility]) Body height 62 in 62 in [facility] ([facility]) Heart rate 60 /min 60 /min [facility] ([facility]) Inhaled oxygen 98 % 98 % [facility] ([facility]) Body mass index 22.9 kg/m2 22.9 kg/m2 [facility] (A mmir (BMI) [Ratio] [facility]) Diastolic blood 60 mm[Hg] 60 mm[Hg] [facility] ([facility]) Systolic blood 100 mm[Hg] 100 mm[Hg] [facility] ([facility]) Body weight 125 lb 125 lb [facility] ([facility]) Body height 62 in 62 in [facility] ([facility]) Heart rate 60 /min 60 /min [facility] ([facility]) Inhaled oxygen 98 % 98 % [facility] ([facility]) Body mass index 22.9 kg/m2 22.9 kg/m2 [facility] (A mmir (BMI) [Ratio] [facility]) Diastolic blood 60 mm[Hg] 60 mm[Hg] [facility] ([facility]) Systolic blood 100 mm[Hg] 100 mm[Hg] [facility] ([facility]) Body weight 125 lb 125 lb [facility] ([facility]) Body height 62 in 62 in [facility] ([facility]) Heart rate 60 /min 60 /min [facility] ([facility]) Inhaled oxygen 98 % 98 % [facility] ([facility]) Body mass index 22.9 kg/m2 22.9 kg/m2 [facility] (A mmir (BMI) [Ratio] [facility]) Diastolic blood 60 mm[Hg] 60 mm[Hg] [facility] ([facility]) Systolic blood 100 mm[Hg] 100 mm[Hg] [facility] ([facility]) Body weight 125 lb 125 lb [facility] ([facility]) Body height 62 in 62 in [facility] ([facility]) Heart rate 55 /min 55 /min [facility] ([facility]) Inhaled oxygen 98 % 98 % [facility] ([facility]) Body mass index 22.3 kg/m2 22.3 kg/m2 [facility] (A mmir (BMI) [Ratio] [facility]) Diastolic blood 60 mm[Hg] 60 mm[Hg] [facility] ([facility]) Systolic blood 100 mm[Hg] 100 mm[Hg] [facility] ([facility]) Body weight 122 lb 122 lb [facility] ([facility]) Body height 62 in 62 in [facility] ([facility]) Heart rate 55 /min 55 /min [facility] ([facility]) Inhaled oxygen 98 % 98 % [facility] ([facility]) Body mass index 22.3 kg/m2 22.3 kg/m2 [facility] (A mmir (BMI) [Ratio] [facility]) Diastolic blood 60 mm[Hg] 60 mm[Hg] [facility] ([facility]) Systolic blood 100 mm[Hg] 100 mm[Hg] [facility] ([facility]) Body weight 122 lb 122 lb [facility] ([facility]) Body height 62 in 62 in [facility] ([facility]) Heart rate 55 /min 55 /min [facility] ([facility]) Inhaled oxygen 98 % 98 % [facility] ([facility]) Body mass index 22.3 kg/m2 22.3 kg/m2 [facility] (A mmir (BMI) [Ratio] [facility]) Diastolic blood 60 mm[Hg] 60 mm[Hg] [facility] ([facility]) Systolic blood 100 mm[Hg] 100 mm[Hg] [facility] ([facility]) Body weight 122 lb 122 lb [facility] ([facility]) Body height 62 in 62 in [facility] ([facility]) Heart rate 55 /min 55 /min [facility] ([facility]) Inhaled oxygen 98 % 98 % [facility] ([facility]) Body mass index 22.3 kg/m2 22.3 kg/m2 [facility] (A mmir (BMI) [Ratio] [facility]) Diastolic blood 60 mm[Hg] 60 mm[Hg] [facility] ([facility]) Systolic blood 100 mm[Hg] 100 mm[Hg] [facility] ([facility]) Body weight 122 lb 122 lb [facility] ([facility]) Body height 62 in 62 in [facility] ([facility]) Heart rate 55 /min 55 /min [facility] ([facility]) Inhaled oxygen 98 % 98 % [facility] ([facility]) Body mass index 22.3 kg/m2 22.3 kg/m2 [facility] (A mmir (BMI) [Ratio] [facility]) Diastolic blood 60 mm[Hg] 60 mm[Hg] [facility] (A [facility]) Systolic blood 100 mm[Hg] 100 mm[Hg] [facility] ([facility]) Body weight 122 lb 122 lb [facility] ([facility]) Body height 62 in 62 in [facility] ([facility]) Heart rate 55 /min 55 /min [facility] ([facility]) Inhaled oxygen 98 % 98 % [facility] ([facility]) Body mass index 22.3 kg/m2 22.3 kg/m2 [facility] (A mmir (BMI) [Ratio] [facility]) Diastolic blood 60 mm[Hg] 60 mm[Hg] [facility] (A [facility]) Systolic blood 100 mm[Hg] 100 mm[Hg] [facility] ([facility]) Body weight 122 lb 122 lb [facility] ([facility]) Body height 62 in 62 in [facility] ([facility]) Heart rate 55 /min 55 /min [facility] ([facility]) Inhaled oxygen 98 % 98 % [facility] ([facility]) Body mass index 22.3 kg/m2 22.3 kg/m2 [facility] (A mmir (BMI) [Ratio] [facility]) Diastolic blood 60 mm[Hg] 60 mm[Hg] [facility] (A mm[facility]) Systolic blood 100 mm[Hg] 100 mm[Hg] [facility] ([facility]) Body weight 122 lb 122 lb [facility] ([facility]) Body height 62 in 62 in [facility] ([facility]) Heart rate 55 /min 55 /min [facility] ([facility]) Inhaled oxygen 98 % 98 % [facility] ([facility]) Body mass index 22.3 kg/m2 22.3 kg/m2 [facility] (A mmir (BMI) [Ratio] [facility]) Diastolic blood 60 mm[Hg] 60 mm[Hg] [facility] (A mm[facility]) Systolic blood 100 mm[Hg] 100 mm[Hg] [facility] ([facility]) Body weight 122 lb 122 lb [facility] ([facility]) Body height 62 in 62 in [facility] ([facility]) Heart rate 71 /min 71 /min [facility] ([facility]) Inhaled oxygen 99 % 99 % [facility] ([facility]) Body mass index 23 kg/m2 23 kg/m2 [facility] (A mmir (BMI) [Ratio] [facility]) Diastolic blood 70 mm[Hg] 70 mm[Hg] [facility] (A mm[facility] pressure [facility]) Systolic blood 130 mm[Hg] 130 mm[Hg] [facility] ([facility]) Body weight 126 lb 126 lb [facility] ([facility]) Body height 62 in 62 in [facility] ([facility]) Heart rate 71 /min 71 /min [facility] ([facility]) Inhaled oxygen 99 % 99 % [facility] ([facility]) Body mass index 23 kg/m2 23 kg/m2 [facility] (A mmir (BMI) [Ratio] [facility]) Diastolic blood 70 mm[Hg] 70 mm[Hg] [facility] (A mm[facility] pressure [facility]) Systolic blood 130 mm[Hg] 130 mm[Hg] [facility] ([facility]) Body weight 126 lb 126 lb [facility] ([facility]) Body height 62 in 62 in [facility] ([facility]) Heart rate 71 /min 71 /min [facility] ([facility]) Inhaled oxygen 99 % 99 % [facility] ([facility] [place] [facility]) Body mass index 23 kg/m2 23 kg/m2 [facility] (A mmir (BMI) [Ratio] [facility]) Diastolic blood 70 mm[Hg] 70 mm[Hg] [facility] (A mm[facility] pressure [facility]) Systolic blood 130 mm[Hg] 130 mm[Hg] [facility] ([facility] [place] [facility]) Body weight 126 lb 126 lb [facility] ([facility]) Body height 62 in 62 in [facility] ([facility]) Heart rate 71 /min 71 /min [facility] ([facility]) Inhaled oxygen 99 % 99 % [facility] ([facility] [place] [facility]) Body mass index 23 kg/m2 23 kg/m2 [facility] (A mmir (BMI) [Ratio] [facility]) Diastolic blood 70 mm[Hg] 70 mm[Hg] [facility] (A mm[facility] pressure [facility]) Systolic blood 130 mm[Hg] 130 mm[Hg] [facility] ([facility] [place] [facility]) Body weight 126 lb 126 lb [facility] ([facility]) Body height 62 in 62 in [facility] ([facility]) Heart rate 71 /min 71 /min [facility] ([facility]) Inhaled oxygen 99 % 99 % [facility] ([facility] [place] [facility]) Body mass index 23 kg/m2 23 kg/m2 [facility] (A mmir (BMI) [Ratio] [facility]) Diastolic blood 70 mm[Hg] 70 mm[Hg] [facility] (A mm[facility] pressure [facility]) Systolic blood 130 mm[Hg] 130 mm[Hg] [facility] ([facility] [place] [facility]) Body weight 126 lb 126 lb [facility] ([facility]) Body height 62 in 62 in [facility] ([facility]) Heart rate 71 /min 71 /min [facility] ([facility]) Inhaled oxygen 99 % 99 % [facility] ([facility] [place] [facility]) Body mass index 23 kg/m2 23 kg/m2 [facility] (A mmir (BMI) [Ratio] [facility]) Diastolic blood 70 mm[Hg] 70 mm[Hg] [facility] (A mm[facility] pressure [facility]) Systolic blood 130 mm[Hg] 130 mm[Hg] [facility] ([facility] [place] [facility]) Body weight 126 lb 126 lb [facility] ([facility]) Body height 62 in 62 in [facility] ([facility]) Heart rate 71 /min 71 /min [facility] ([facility]) Inhaled oxygen 99 % 99 % [facility] ([facility] [place] [facility]) Body mass index 23 kg/m2 23 kg/m2 [facility] (A mmir (BMI) [Ratio] [facility]) Diastolic blood 70 mm[Hg] 70 mm[Hg] [facility] (A mm[facility] pressure [facility]) Systolic blood 130 mm[Hg] 130 mm[Hg] [facility] ([facility] [place] [facility]) Body weight 126 lb 126 lb [facility] ([facility]) Body height 62 in 62 in [facility] ([facility]) Heart rate 71 /min 71 /min [facility] ([facility]) Inhaled oxygen 99 % 99 % [facility] ([facility] [place] [facility]) Body mass index 23 kg/m2 23 kg/m2 [facility] (A mmir (BMI) [Ratio] [facility]) Diastolic blood 70 mm[Hg] 70 mm[Hg] [facility] (A mm[facility] pressure [facility]) Systolic blood 130 mm[Hg] 130 mm[Hg] [facility] ([facility] [place] [facility]) Body weight 126 lb 126 lb [facility] ([facility]) Body height 62 in 62 in [facility] ([facility]) Heart rate 71 /min 71 /min [facility] ([facility]) Inhaled oxygen 99 % 99 % [facility] ([facility] [place] [facility]) Body mass index 23 kg/m2 23 kg/m2 [facility] (A mmir (BMI) [Ratio] [facility]) Diastolic blood 68 mm[Hg] 68 mm[Hg] [facility] (A mm[facility] pressure [facility]) Systolic blood 134 mm[Hg] 134 mm[Hg] [facility] ([facility] [place] [facility]) Body weight 126 lb 126 lb [facility] ([facility]) Body height 62 in 62 in [facility] ([facility]) Heart rate 71 /min 71 /min [facility] ([facility]) Inhaled oxygen 99 % 99 % [facility] ([facility] [place] [facility]) Body mass index 23 kg/m2 23 kg/m2 [facility] (A mmir (BMI) [Ratio] [facility]) Diastolic blood 68 mm[Hg] 68 mm[Hg] [facility] (A mm[facility] pressure [facility]) Systolic blood 134 mm[Hg] 134 mm[Hg] [facility] ([facility] [place] [facility]) Body weight 126 lb 126 lb [facility] ([facility]) Body height 62 in 62 in [facility] ([facility]) Heart rate 71 /min 71 /min [facility] ([facility]) Inhaled oxygen 99 % 99 % [facility] ([facility] [place] [facility]) Body mass index 23 kg/m2 23 kg/m2 [facility] (A mmir (BMI) [Ratio] [facility]) Diastolic blood 68 mm[Hg] 68 mm[Hg] [facility] (A mm[facility] pressure [facility]) Systolic blood 134 mm[Hg] 134 mm[Hg] [facility] ([facility] [place] [facility]) Body weight 126 lb 126 lb [facility] ([facility]) Body height 62 in 62 in [facility] ([facility]) Heart rate 71 /min 71 /min [facility] ([facility]) Inhaled oxygen 99 % 99 % [facility] ([facility] [place] [facility]) Body mass index 23 kg/m2 23 kg/m2 [facility] (A mmir (BMI) [Ratio] [facility]) Diastolic blood 68 mm[Hg] 68 mm[Hg] [facility] (A mm[facility] pressure [facility]) Systolic blood 134 mm[Hg] 134 mm[Hg] [facility] ([facility] [place] [facility]) Body weight 126 lb 126 lb [facility] ([facility]) Body height 62 in 62 in [facility] ([facility]) Heart rate 69 /min 69 /min [facility] ([facility]) Inhaled oxygen 98 % 98 % [facility] ([facility] [place] [facility]) Body mass index 23.4 kg/m2 23.4 kg/m2 [facility] (A mmir (BMI) [Ratio] [facility]) Diastolic blood 70 mm[Hg] 70 mm[Hg] [facility] (A mm[facility] pressure [facility]) Systolic blood 120 mm[Hg] 120 mm[Hg] [facility] ([facility] [place] [facility]) Body weight 128 lb 128 lb [facility] ([facility]) Body height 62 in 62 in [facility] ([facility]) Heart rate 69 /min 69 /min [facility] ([facility]) Inhaled oxygen 98 % 98 % [facility] ([facility] [place] [facility]) Body mass index 23.4 kg/m2 23.4 kg/m2 [facility] (A mmir (BMI) [Ratio] [facility]) Diastolic blood 70 mm[Hg] 70 mm[Hg] [facility] (A mm[facility] pressure [facility]) Systolic blood 120 mm[Hg] 120 mm[Hg] [facility] ([facility] [place] [facility]) Body weight 128 lb 128 lb [facility] ([facility]) Body height 62 in 62 in [facility] ([facility]) Heart rate 69 /min 69 /min [facility] ([facility]) Inhaled oxygen 98 % 98 % [facility] ([facility] [place] [facility]) Body mass index 23.4 kg/m2 23.4 kg/m2 [facility] (A mmir (BMI) [Ratio] [facility]) Diastolic blood 70 mm[Hg] 70 mm[Hg] [facility] ([facility] mm[facility] pressure [facility]) Systolic blood 120 mm[Hg] 120 mm[Hg] [facility] ([facility] [place] [facility]) Body weight 128 lb 128 lb [facility] ([facility]) Body height 62 in 62 in [facility] ([facility]) Systolic blood 120 mm[Hg] 120 mm[Hg] [facility] ([facility] [place] [facility]) Body weight 128 lb 128 lb [facility] ([facility]) Body height 62 in 62 in [facility] ([facility]) Heart rate 69 /min 69 /min [facility] ([facility]) Inhaled oxygen 98 % 98 % [facility] ([facility] [place] [facility]) Body mass index 23.4 kg/m2 23.4 kg/m2 [facility] (A mmir (BMI) [Ratio] [facility]) Diastolic blood 70 mm[Hg] 70 mm[Hg] [facility] ([facility] pressure [facility]) Body mass index 23.4 kg/m2 23.4 kg/m2 [facility] (A mmir (BMI) [Ratio] [facility]) Diastolic blood 74 mm[Hg] 74 mm[Hg] [facility] (A mm[facility] pressure [facility]) Systolic blood 120 mm[Hg] 120 mm[Hg] [facility] ([facility] [place] [facility]) Body weight 128 lb 128 lb [facility] ([facility]) Body height 62 in 62 in [facility] ([facility]) Heart rate 72 /min 72 /min [facility] ([facility]) Inhaled oxygen 98 % 98 % [facility] ([facility] [place] [facility]) Heart rate 72 /min 72 /min [facility] ([facility]) Inhaled oxygen 98 % 98 % [facility] ([facility] [place] [facility]) Body mass index 23.4 kg/m2 23.4 kg/m2 [facility] (A mmir (BMI) [Ratio] [facility]) Diastolic blood 74 mm[Hg] 74 mm[Hg] [facility] ([facility] mm[facility] pressure [facility]) Systolic blood 120 mm[Hg] 120 mm[Hg] [facility] ([facility] [place] [facility]) Body weight 128 lb 128 lb [facility] ([facility]) Body height 62 in 62 in [facility] ([facility]) Heart rate 72 /min 72 /min [facility] ([facility]) Inhaled oxygen 98 % 98 % [facility] ([facility] [place] [facility]) Body mass index 23.4 kg/m2 23.4 kg/m2 [facility] (A mmir (BMI) [Ratio] [facility]) Diastolic blood 74 mm[Hg] 74 mm[Hg] [facility] (A mm[facility] pressure [facility]) Systolic blood 120 mm[Hg] 120 mm[Hg] [facility] ([facility] [place] [place] [facility]) Body weight 128 lb 128 lb [facility] ([facility]) Body height 62 in 62 in [facility] ([facility]) Heart rate 72 /min 72 /min [facility] ([facility]) Inhaled oxygen 98 % 98 % [facility] ([facility] [place] [place] [facility]) Body mass index 23.4 kg/m2 23.4 kg/m2 [facility] (A mmir (BMI) [Ratio] [facility]) Diastolic blood 74 mm[Hg] 74 mm[Hg] [facility] (A mm[facility] pressure [facility]) Systolic blood 120 mm[Hg] 120 mm[Hg] [facility] ([facility] [place] [place] [facility]) Body weight 128 lb 128 lb [facility] ([facility]) Body height 62 in 62 in [facility] ([facility]) Heart rate 68 /min 68 /min [facility] ([facility]) Inhaled oxygen 98 % 98 % [facility] ([facility] [place] [facility]) Body mass index 23.6 kg/m2 23.6 kg/m2 [facility] (A mmir (BMI) [Ratio] [facility]) Diastolic blood 70 mm[Hg] 70 mm[Hg] [facility] (A mm[facility]) Systolic blood 110 mm[Hg] 110 mm[Hg] [facility] ([facility] [place] [place] [facility]) Body weight 129 lb 129 lb [facility] ([facility]) Body height 62 in 62 in [facility] ([facility]) Heart rate 68 /min 68 /min [facility] ([facility]) Inhaled oxygen 98 % 98 % [facility] ([facility] [place] [facility]) Body mass index 23.6 kg/m2 23.6 kg/m2 [facility] (A mmir (BMI) [Ratio] [facility]) Diastolic blood 70 mm[Hg] 70 mm[Hg] [facility] (A mm[facility] pressure [facility]) Systolic blood 110 mm[Hg] 110 mm[Hg] [facility] ([facility] [place] [place] [facility]) Body weight 129 lb 129 lb [facility] ([facility]) Body height 62 in 62 in [facility] ([facility]) Heart rate 68 /min 68 /min [facility] ([facility]) Inhaled oxygen 98 % 98 % [facility] ([facility] [place] [facility]) Body mass index 23.6 kg/m2 23.6 kg/m2 [facility] (A mmir (BMI) [Ratio] [facility]) Diastolic blood 70 mm[Hg] 70 mm[Hg] [facility] (A mm[facility] pressure [facility]) Systolic blood 110 mm[Hg] 110 mm[Hg] [facility] ([facility] [place] [facility]) Body weight 129 lb 129 lb [facility] ([facility]) Body height 62 in 62 in [facility] ([facility]) Heart rate 68 /min 68 /min [facility] ([facility]) Inhaled oxygen 98 % 98 % [facility] ([facility] [place] [facility]) Body mass index 23.6 kg/m2 23.6 kg/m2 [facility] (A mmir (BMI) [Ratio] [facility]) Diastolic blood 70 mm[Hg] 70 mm[Hg] [facility] (A mm[facility] pressure [facility]) Systolic blood 110 mm[Hg] 110 mm[Hg] [facility] ([facility] [place] [facility]) Body weight 129 lb 129 lb [facility] ([facility]) Body height 62 in 62 in [facility] ([facility]) Heart rate 72 /min 72 /min [facility] ([facility]) Inhaled oxygen 98 % 98 % [facility] ([facility] [place] [facility]) Heart rate 72 /min 72 /min [facility] ([facility]) Inhaled oxygen 98 % 98 % [facility] ([facility] [place] [facility]) Heart rate 72 /min 72 /min [facility] ([facility]) Inhaled oxygen 98 % 98 % [facility] ([facility] [place] [facility]) Heart rate 72 /min 72 /min [facility] ([facility]) Inhaled oxygen 98 % 98 % [facility] ([facility] [place] [facility]) Heart rate 66 /min 66 /min [facility] ([facility]) Respiratory rate 16 /min 16 /min [facility] ( [facility]) Body temperature 98.1 F 98.1 F [facility] ( [facility]) Inhaled oxygen 98 % 98 % [facility] ([facility] [place] [facility]) Body mass index 23.8 kg/m2 23.8 kg/m2 [facility] (A mmir (BMI) [Ratio] [facility]) Diastolic blood 70 mm[Hg] 70 mm[Hg] [facility] (A mm[facility] pressure [facility]) Systolic blood 100 mm[Hg] 100 mm[Hg] [facility] ([facility] [place] [facility]) Body weight 130 lb 130 lb [facility] ([facility]) Body height 62 in 62 in [facility] ([facility]) Heart rate 66 /min 66 /min [facility] ([facility]mm[facility]) Respiratory rate 16 /min 16 /min [facility] ( [facility]) Body temperature 98.1 F 98.1 F [facility] ( [facility]) Inhaled oxygen 98 % 98 % [facility] ([facility] [place] [facility]) Body mass index 23.8 kg/m2 23.8 kg/m2 [facility] (A mmir (BMI) [Ratio] [facility]) Diastolic blood 70 mm[Hg] 70 mm[Hg] [facility] (A mm[facility] pressure [facility]) Systolic blood 100 mm[Hg] 100 mm[Hg] [facility] ([facility] [place] [facility]) Body weight 130 lb 130 lb [facility] ([facility]) Body height 62 in 62 in [facility] ([facility]) Heart rate 66 /min 66 /min [facility] ([facility]) Respiratory rate 16 /min 16 /min [facility] ( [facility]) Body temperature 98.1 F 98.1 F [facility] ( [facility]mm[facility]) Inhaled oxygen 98 % 98 % [facility] ([facility] [place] [facility]) Body mass index 23.8 kg/m2 23.8 kg/m2 [facility] (A mmir (BMI) [Ratio] [facility]) Diastolic blood 70 mm[Hg] 70 mm[Hg] [facility] (A mm[facility] pressure [facility]) Systolic blood 100 mm[Hg] 100 mm[Hg] [facility] ([facility] [place] [facility]) Body weight 130 lb 130 lb [facility] ([facility]) Body height 62 in 62 in [facility] ([facility]) Heart rate 66 /min 66 /min [facility] ([facility]) Respiratory rate 16 /min 16 /min [facility] ( [facility]) Body temperature 98.1 F 98.1 F [facility] ( [facility]mm[facility]) Inhaled oxygen 98 % 98 % [facility] ([facility] [place] [facility]) Body mass index 23.8 kg/m2 23.8 kg/m2 [facility] (A mmir (BMI) [Ratio] [facility]) Diastolic blood 70 mm[Hg] 70 mm[Hg] [facility] (A mm[facility] pressure [facility]) Systolic blood 100 mm[Hg] 100 mm[Hg] [facility] ([facility] [place] [facility]) Body weight 130 lb 130 lb [facility] ([facility]) Body height 62 in 62 in [facility] ([facility]) Heart rate 72 /min 72 /min [facility] ([facility]) Respiratory rate 16 /min 16 /min [facility] ( [facility]) Body temperature 98.1 F 98.1 F [facility] ( [facility]) Inhaled oxygen 98 % 98 % [facility] ([facility] [place] [facility]) Body mass index 23 kg/m2 23 kg/m2 [facility] (A mmir (BMI) [Ratio] [facility]) Diastolic blood 64 mm[Hg] 64 mm[Hg] [facility] (A mm[facility] pressure [facility]) Systolic blood 110 mm[Hg] 110 mm[Hg] [facility] ([facility] [place] [facility]) Body weight 126 lb 126 lb [facility] ([facility]) Body height 62 in 62 in [facility] ([facility]) Heart rate 72 /min 72 /min [facility] ([facility]) Respiratory rate 16 /min 16 /min [facility] ( [facility]) Body temperature 98.1 F 98.1 F [facility] ( [facility]) Inhaled oxygen 98 % 98 % [facility] ([facility] [place] [facility]) Body mass index 23 kg/m2 23 kg/m2 [facility] (A mmir (BMI) [Ratio] [facility]) Diastolic blood 64 mm[Hg] 64 mm[Hg] [facility] (A mm[facility] pressure [facility]) Systolic blood 110 mm[Hg] 110 mm[Hg] [facility] ([facility] [place] [facility]) Body weight 126 lb 126 lb [facility] ([facility]) Body height 62 in 62 in [facility] ([facility]) Heart rate 72 /min 72 /min [facility] ([facility]) Respiratory rate 16 /min 16 /min [facility] ( [facility]) Body temperature 98.1 F 98.1 F [facility] ( [facility]mm[facility]) Inhaled oxygen 98 % 98 % [facility] ([facility] [place] [facility]) Body mass index 23 kg/m2 23 kg/m2 [facility] (A mmir (BMI) [Ratio] [facility]) Diastolic blood 64 mm[Hg] 64 mm[Hg] [facility] (A mm[facility] pressure [facility]) Systolic blood 110 mm[Hg] 110 mm[Hg] [facility] ([facility] [place] [facility]) Body weight 126 lb 126 lb [facility] ([facility]) Body height 62 in 62 in [facility] ([facility]) Heart rate 72 /min 72 /min [facility] ([facility]) Respiratory rate 16 /min 16 /min [facility] ( [facility]) Body temperature 98.1 F 98.1 F [facility] ( [facility]mm[facility]) Inhaled oxygen 98 % 98 % [facility] ([facility] [place] [facility]) Body mass index 23 kg/m2 23 kg/m2 [facility] (A mmir (BMI) [Ratio] [facility]) Diastolic blood 64 mm[Hg] 64 mm[Hg] [facility] (A mm[facility] pressure [facility]) Systolic blood 110 mm[Hg] 110 mm[Hg] [facility] ([facility] [place] [facility]) Body weight 126 lb 126 lb [facility] ([facility]) Body height 62 in 62 in [facility] ([facility]) Heart rate 72 /min 72 /min [facility] ([facility]) Respiratory rate 16 /min 16 /min [facility] ( [facility]) Body temperature 98.1 F 98.1 F [facility] ( [facility]mm[facility]) Inhaled oxygen 98 % 98 % [facility] ([facility] [place] [facility]) Body mass index 23 kg/m2 23 kg/m2 [facility] (A mmir (BMI) [Ratio] [facility]) Diastolic blood 68 mm[Hg] 68 mm[Hg] [facility] (A mm[facility] pressure [facility]) Systolic blood 102 mm[Hg] 102 mm[Hg] [facility] ([facility] [place] [facility]) Body weight 126 lb 126 lb [facility] ([facility]) Body height 62 in 62 in [facility] ([facility]) Heart rate 72 /min 72 /min [facility] ([facility]) Respiratory rate 16 /min 16 /min [facility] ( [facility]) Body temperature 98.1 F 98.1 F [facility] ( [facility]) Inhaled oxygen 98 % 98 % [facility] ([facility] [place] [facility]) Body mass index 23 kg/m2 23 kg/m2 [facility] (A mmir (BMI) [Ratio] [facility]) Diastolic blood 68 mm[Hg] 68 mm[Hg] [facility] (A mm[facility] pressure [facility]) Systolic blood 102 mm[Hg] 102 mm[Hg] [facility] ([facility] [place] [facility]) Body weight 126 lb 126 lb [facility] ([facility]) Body height 62 in 62 in [facility] ([facility]) Heart rate 72 /min 72 /min [facility] ([facility]mm[facility]) Respiratory rate 16 /min 16 /min [facility] ( [facility]) Body temperature 98.1 F 98.1 F [facility] ( [facility]mm[facility]) Inhaled oxygen 98 % 98 % [facility] ([facility] [place] [facility]) Body mass index 23 kg/m2 23 kg/m2 [facility] (A mmir (BMI) [Ratio] [facility]) Diastolic blood 68 mm[Hg] 68 mm[Hg] [facility] (A mm[facility] pressure [facility]) Systolic blood 102 mm[Hg] 102 mm[Hg] [facility] ([facility] [place] [facility]) Body weight 126 lb 126 lb [facility] ([facility]) Body height 62 in 62 in [facility] ([facility]) Heart rate 72 /min 72 /min [facility] ([facility]) Respiratory rate 16 /min 16 /min [facility] ( [facility]) Body temperature 98.1 F 98.1 F [facility] ( [facility]) Inhaled oxygen 98 % 98 % [facility] ([facility] [place] [facility]) Body mass index 23 kg/m2 23 kg/m2 [facility] (A mmir (BMI) [Ratio] [facility]) Diastolic blood 68 mm[Hg] 68 mm[Hg] [facility] (A mm[facility] pressure [facility]) Systolic blood 102 mm[Hg] 102 mm[Hg] [facility] ([facility] [place] [facility]) Body weight 126 lb 126 lb [facility] ([facility]) Body height 62 in 62 in [facility] ([facility]) Heart rate 72 /min 72 /min [facility] ([facility]) Inhaled oxygen 98 % 98 % [facility] ([facility] [place] [facility]) Diastolic blood 80 mm[Hg] 80 mm[Hg] [facility] (A mm[facility] pressure [facility]) Systolic blood 120 mm[Hg] 120 mm[Hg] [facility] ([facility] [place] [facility]) Heart rate 72 /min 72 /min [facility] ([facility]) Inhaled oxygen 98 % 98 % [facility] ([facility] [place] [facility]) Diastolic blood 80 mm[Hg] 80 mm[Hg] [facility] (A mm[facility] pressure [facility]) Systolic blood 120 mm[Hg] 120 mm[Hg] [facility] ([facility] [place] [facility]) Heart rate 72 /min 72 /min [facility] ([facility]) Inhaled oxygen 98 % 98 % [facility] ([facility] [place] [facility]) Diastolic blood 80 mm[Hg] 80 mm[Hg] [facility] (A mm[facility] pressure [facility]) Systolic blood 120 mm[Hg] 120 mm[Hg] [facility] ([facility] [place] [facility]) Heart rate 72 /min 72 /min [facility] ([facility]) Inhaled oxygen 98 % 98 % [facility] ([facility] [place] [facility]) Diastolic blood 80 mm[Hg] 80 mm[Hg] [facility] (A mm[facility] pressure [facility]) Systolic blood 120 mm[Hg] 120 mm[Hg] [facility] ([facility] [place] [facility]) Heart rate 68 /min 68 /min [facility] ([facility]) Respiratory rate 16 /min 16 /min [facility] ( [facility]) Body temperature 97.9 F 97.9 F [facility] ( [facility]) Inhaled oxygen 97 % 97 % [facility] ([facility] [place] [facility]) Body mass index 24.9 kg/m2 24.9 kg/m2 [facility] (A mmir (BMI) [Ratio] [facility]) Diastolic blood 70 mm[Hg] 70 mm[Hg] [facility] (A mm[facility] pressure [facility]) Systolic blood 100 mm[Hg] 100 mm[Hg] [facility] ([facility] [place] [facility]) Body weight 136 lb 136 lb [facility] ([facility]) Body height 62 in 62 in [facility] ([facility]mm[facility]) Heart rate 68 /min 68 /min [facility] ([facility]mm[facility]) Respiratory rate 16 /min 16 /min [facility] ( Amm[facility]) Body temperature 97.9 F 97.9 F [facility] ( Amm[facility]) Inhaled oxygen 97 % 97 % [facility] ([facility] [place] [facility]) Body mass index 24.9 kg/m2 24.9 kg/m2 [facility] (A mmir (BMI) [Ratio] [facility]) Diastolic blood 70 mm[Hg] 70 mm[Hg] [facility] (A mmir pressure [facility]) Systolic blood 100 mm[Hg] 100 mm[Hg] [facility] ([facility] [place] [facility]) Body weight 136 lb 136 lb [facility] ([facility]) Body height 62 in 62 in [facility] (Amm[facility]) Heart rate 68 /min 68 /min [facility] ([facility]) Respiratory rate 16 /min 16 /min [facility] ( Amm[facility]) Body temperature 97.9 F 97.9 F [facility] ( Amm[facility]) Inhaled oxygen 97 % 97 % [facility] ([facility] [place] [facility]) Body mass index 24.9 kg/m2 24.9 kg/m2 [facility] (A mmir (BMI) [Ratio] [facility]) Diastolic blood 70 mm[Hg] 70 mm[Hg] [facility] (A mmir pressure [facility]) Systolic blood 100 mm[Hg] 100 mm[Hg] [facility] ([facility] [place] [facility]) Body weight 136 lb 136 lb [facility] ([facility]) Body height 62 in 62 in [facility] ([facility]mm[facility]) Heart rate 68 /min 68 /min [facility] ([facility]mm[facility]) Respiratory rate 16 /min 16 /min [facility] ( Amm[facility]) Body temperature 97.9 F 97.9 F [facility] ( Amm[facility]) Inhaled oxygen 97 % 97 % [facility] ([facility] [place] [facility]) Body mass index 24.9 kg/m2 24.9 kg/m2 [facility] (A mmir (BMI) [Ratio] [facility]) Diastolic blood 70 mm[Hg] 70 mm[Hg] [facility] (A mmir pressure [facility]) Systolic blood 100 mm[Hg] 100 mm[Hg] [facility] ([facility] [place] [facility]) Body weight 136 lb 136 lb [facility] (Ammir [facility]ician) Body height 62 in 62 in [facility] (Ammir [facility]ician) Heart rate 74 /min 74 /min [facility] (Ammir [facility]) Respiratory rate 16 /min 16 /min [facility] ( Ammir [facility]ician) Body temperature 97.9 F 97.9 F [facility] ( Ammir [facility]ician) Inhaled oxygen 98 % 98 % [facility] ([facility] [place] [facility]) Body mass index 24.9 kg/m2 24.9 kg/m2 [facility] (A mmir (BMI) [Ratio] [facility]) Diastolic blood 70 mm[Hg] 70 mm[Hg] [facility] (A mmir pressure [facility]) Systolic blood 100 mm[Hg] 100 mm[Hg] [facility] ([facility] [facility]) Body weight 136 lb 136 lb [facility] ([facility]) Body height 62 in 62 in [facility] (Ammir [facility]ician) Heart rate 74 /min 74 /min [facility] ([facility]) Respiratory rate 16 /min 16 /min [facility] ( [facility]) Body temperature 97.9 F 97.9 F [facility] ( [facility]) Inhaled oxygen 98 % 98 % [facility] (Am maria gu[place] concentration [facility]) Body mass index 24.9 kg/m2 24.9 kg/m2 [facility] (A mmir (BMI) [Ratio] [facility]) Diastolic blood 70 mm[Hg] 70 mm[Hg] [facility] (A mmir pressure [facility]) Systolic blood 100 mm[Hg] 100 mm[Hg] [facility] (Am maria [place] pressure [facility]) Body weight 136 lb 136 lb [facility] ([facility]) Body height 62 in 62 in [facility] ([facility]) Heart rate 74 /min 74 /min [facility] ([facility]mm[facility]) Respiratory rate 16 /min 16 /min [facility] ( Amm[facility]) Body temperature 97.9 F 97.9 F [facility] ( Amm[facility]) Inhaled oxygen 98 % 98 % [facility] (Am maria [place] concentration [facility]) Body mass index 24.9 kg/m2 24.9 kg/m2 [facility] (A mmir (BMI) [Ratio] [facility]) Diastolic blood 70 mm[Hg] 70 mm[Hg] [facility] (A mmir pressure [facility]) Systolic blood 100 mm[Hg] 100 mm[Hg] [facility] (Am maria [place] pressure [facility]) Body weight 136 lb 136 lb [facility] ([facility]) Body height 62 in 62 in [facility] ([facility]mm[facility]ician) Heart rate 74 /min 74 /min [facility] ([facility]mm[facility]) Respiratory rate 16 /min 16 /min [facility] ( Amm[facility]) Body temperature 97.9 F 97.9 F [facility] ( Amm[facility]) Inhaled oxygen 98 % 98 % [facility] (Am maria [place] concentration [facility]) Body mass index 24.9 kg/m2 24.9 kg/m2 [facility] (A mmir (BMI) [Ratio] [facility]) Diastolic blood 70 mm[Hg] 70 mm[Hg] [facility] (A mmir pressure [facility]) Systolic blood 100 mm[Hg] 100 mm[Hg] [facility] (Am maria [place] pressure [facility]) Body weight 136 lb 136 lb [facility] ([facility]) Body height 62 in 62 in [facility] (Amm[facility]ician) Heart rate 70 /min 70 /min [facility] (Amm[facility]ician) Respiratory rate 16 /min 16 /min [facility] ( Amm[facility]ician) Body temperature 97.9 F 97.9 F [facility] ( Ammir [facility]ician) Inhaled oxygen 96 % 96 % [facility] (Am maria [place] concentration [facility]) Body mass index 24.3 kg/m2 24.3 kg/m2 [facility] (A mmir (BMI) [Ratio] [facility]) Diastolic blood 68 mm[Hg] 68 mm[Hg] [facility] (A mmir pressure [facility]) Systolic blood 112 mm[Hg] 112 mm[Hg] [facility] (Am mar[facility] [place] pressure [facility]) Body weight 133 lb 133 lb [facility] ([facility]mm[facility]) Body height 62 in 62 in [facility] (Amm[facility]ician) Heart rate 70 /min 70 /min [facility] (Amm[facility]ician) Respiratory rate 16 /min 16 /min [facility] ( Amm[facility]ician) Body temperature 97.9 F 97.9 F [facility] ( Ammir [facility]ician) Inhaled oxygen 96 % 96 % [facility] (Am maria [place] concentration [facility]) Body mass index 24.3 kg/m2 24.3 kg/m2 [facility] (A mmir (BMI) [Ratio] [facility]) Diastolic blood 68 mm[Hg] 68 mm[Hg] [facility] (A mmir pressure [facility]) Systolic blood 112 mm[Hg] 112 mm[Hg] [facility] (Am maria [place] pressure [facility]) Body weight 133 lb 133 lb [facility] (Amm[facility]ician) Body height 62 in 62 in [facility] (Ammir [facility] Physician) Heart rate 70 /min 70 /min [facility] (Ammir [facility]ician) Respiratory rate 16 /min 16 /min [facility] ( Ammir [facility]ician) Body temperature 97.9 F 97.9 F [facility] ( Ammir [facility]ician) Inhaled oxygen 96 % 96 % [facility] (Am [facility] [place] concentration [facility]) Body mass index 24.3 kg/m2 24.3 kg/m2 [facility] (A mmir (BMI) [Ratio] [facility]) Diastolic blood 68 mm[Hg] 68 mm[Hg] [facility] (A mmir pressure [facility]) Systolic blood 112 mm[Hg] 112 mm[Hg] [facility] (Am maria [place] pressure [facility]) Body weight 133 lb 133 lb [facility] ([facility]mm[facility]ician) Body height 62 in 62 in [facility] (Ammir [facility]ician) Heart rate 70 /min 70 /min [facility] (Ammir [facility]ician) Respiratory rate 16 /min 16 /min [facility] ( Ammir [facility]ician) Body temperature 97.9 F 97.9 F [facility] ( Ammir [facility]ician) Inhaled oxygen 96 % 96 % [facility] (Am mar[facility] [place] concentration [facility]) Body mass index 24.3 kg/m2 24.3 kg/m2 [facility] (A mmir (BMI) [Ratio] [facility]) Diastolic blood 68 mm[Hg] 68 mm[Hg] [facility] (A mmir pressure [facility]ician) Systolic blood 112 mm[Hg] 112 mm[Hg] [facility] (Am maria [place] pressure [facility]) Body weight 133 lb 133 lb [facility] (Amm[facility]ician) Body height 62 in 62 in [facility] (Ammir [facility]ician) Heart rate 66 /min 66 /min [facility] (Ammir [facility]ician) Respiratory rate 16 /min 16 /min [facility] ( Ammir [facility]ician) Body temperature 98.3 F 98.3 F [facility] ( Ammir [facility]ician) Inhaled oxygen 98 % 98 % [facility] (Am mar[facility] [place] [facility]) Body mass index 24.7 kg/m2 24.7 kg/m2 [facility] (A mmir (BMI) [Ratio] [facility]) Diastolic blood 60 mm[Hg] 60 mm[Hg] [facility] (A mmir pressure [facility]) Systolic blood 110 mm[Hg] 110 mm[Hg] [facility] (Am maria [place] pressure [facility]) Body weight 135 lb 135 lb [facility] (Ammir [facility]ician) Body height 62 in 62 in [facility] (Ammir [facility]ician) Heart rate 66 /min 66 /min [facility] (Ammir [facility]ician) Respiratory rate 16 /min 16 /min [facility] ( Ammir [facility]ician) Body temperature 98.3 F 98.3 F [facility] ( Ammir [facility]ician) Inhaled oxygen 98 % 98 % [facility] (Am maria [place] concentration [facility]) Body mass index 24.7 kg/m2 24.7 kg/m2 [facility] (A mmir (BMI) [Ratio] [facility]) Diastolic blood 60 mm[Hg] 60 mm[Hg] [facility] (A mmir pressure [facility]ician) Systolic blood 110 mm[Hg] 110 mm[Hg] [facility] (Am maria [place] pressure [facility]) Body weight 135 lb 135 lb [facility] (Ammir [facility]ician) Body height 62 in 62 in [facility] (Ammir [facility] Physician) Diastolic blood 60 mm[Hg] 60 mm[Hg] [facility] (A mmir pressure [facility]ician) Systolic blood 110 mm[Hg] 110 mm[Hg] [facility] (Am maria [place] pressure [facility]) Body weight 135 lb 135 lb [facility] (Ammir [facility]ician) Body height 62 in 62 in [facility] (Ammir [facility]ician) Heart rate 66 /min 66 /min [facility] (Ammir [facility]ician) Respiratory rate 16 /min 16 /min [facility] ( Ammir [facility]ician) Body temperature 98.3 F 98.3 F [facility] ( Ammir [facility]ician) Inhaled oxygen 98 % 98 % [facility] (Am maria [place] concentration [facility]) Body mass index 24.7 kg/m2 24.7 kg/m2 [facility] (A mmir (BMI) [Ratio] [facility]) Heart rate 66 /min 66 /min [facility] (Ammir [facility]ician) Respiratory rate 16 /min 16 /min [facility] ( Ammir [facility]ician) Body temperature 98.3 F 98.3 F [facility] ( Ammir [facility]ician) Inhaled oxygen 98 % 98 % [facility] (Am mar[facility] [place] concentration [facility]) Body mass index 24.7 kg/m2 24.7 kg/m2 [facility] (A mmir (BMI) [Ratio] [facility]) Diastolic blood 60 mm[Hg] 60 mm[Hg] [facility] (A mmir pressure [facility]) Systolic blood 110 mm[Hg] 110 mm[Hg] [facility] (Am maria [place] pressure [facility]) Body weight 135 lb 135 lb [facility] (Ammir [facility]ician) Body height 62 in 62 in [facility] (Ammir [facility] Physician) Heart rate 70 /min 70 /min [facility] (Ammir [facility]ician) Respiratory rate 16 /min 16 /min [facility] ( Ammir [facility]ician) Body temperature 98.1 F 98.1 F [facility] ( Ammir [facility] Physician) Inhaled oxygen 98 % 98 % [facility] (Am maria [place] concentration [facility]) Body mass index 24.9 kg/m2 24.9 kg/m2 [facility] (A mmir (BMI) [Ratio] [facility]) Diastolic blood 70 mm[Hg] 70 mm[Hg] [facility] (A mmir pressure [facility]ician) Systolic blood 130 mm[Hg] 130 mm[Hg] [facility] (Am maria gu[place] pressure [facility]) Body weight 136 lb 136 lb [facility] (Amm[facility]ician) Body height 62 in 62 in [facility] (Ammir [facility] Physician) Systolic blood 130 mm[Hg] 130 mm[Hg] [facility] (Am maria [place] pressure [facility]ician) Body weight 136 lb 136 lb [facility] (Ammir [facility] Physician) Body height 62 in 62 in [facility] (Ammir [facility] Physician) Heart rate 70 /min 70 /min [facility] (Ammir [facility]ician) Respiratory rate 16 /min 16 /min [facility] ( Ammir [facility]ician) Body temperature 98.1 F 98.1 F [facility] ( Ammir [facility] Physician) Inhaled oxygen 98 % 98 % [facility] (Am maria [place] concentration [facility]) Body mass index 24.9 kg/m2 24.9 kg/m2 [facility] (A mmir (BMI) [Ratio] [facility]) Diastolic blood 70 mm[Hg] 70 mm[Hg] [facility] (A mmir pressure [facility]ician) Heart rate 70 /min 70 /min [facility] (Amm[facility]ician) Respiratory rate 16 /min 16 /min [facility] ( Ammir [facility]ician) Body temperature 98.1 F 98.1 F [facility] ( Ammir [facility]ician) Inhaled oxygen 98 % 98 % [facility] (Am mar[facility] [place] concentration [facility]) Body mass index 24.9 kg/m2 24.9 kg/m2 [facility] (A mmir (BMI) [Ratio] [facility]) Diastolic blood 70 mm[Hg] 70 mm[Hg] [facility] (A mmir pressure [facility]ician) Systolic blood 130 mm[Hg] 130 mm[Hg] [facility] (Am maria [place] pressure [facility]) Body weight 136 lb 136 lb [facility] (Amm[facility] Physician) Body height 62 in 62 in [facility] (Ammir [facility] Physician) Heart rate 70 /min 70 /min [facility] (Ammir [facility] Physician) Respiratory rate 16 /min 16 /min [facility] ( Ammir [facility] Physician) Body temperature 98.1 F 98.1 F [facility] ( Ammir [facility] Physician) Inhaled oxygen 98 % 98 % [facility] (Am maria [place] concentration [facility]) Body mass index 24.9 kg/m2 24.9 kg/m2 [facility] (A mmir (BMI) [Ratio] [facility]) Diastolic blood 70 mm[Hg] 70 mm[Hg] [facility] (A mmir pressure [facility]ician) Systolic blood 130 mm[Hg] 130 mm[Hg] [facility] (Am maria [place] pressure [facility]) Body weight 136 lb 136 lb [facility] (Ammir [facility]ician) Body height 62 in 62 in [facility] (Ammir [facility] Physician) Heart rate 62 /min 62 /min [facility] (Ammir [facility]ician) Body temperature 97.9 F 97.9 F [facility] ( Ammir [facility]ician) Inhaled oxygen 96 % 96 % [facility] (Am mar[facility] [place] concentration [facility]) Diastolic blood 68 mm[Hg] 68 mm[Hg] [facility] (A mmir pressure [facility]ician) Systolic blood 116 mm[Hg] 116 mm[Hg] [facility] (Am maria [place] pressure [facility]ician) Heart rate 62 /min 62 /min [facility] (Amm[facility] Physician) Body temperature 97.9 F 97.9 F [facility] ( Ammir [facility] Physician) Inhaled oxygen 96 % 96 % [facility] (Am mar[facility] [place] concentration [facility]) Diastolic blood 68 mm[Hg] 68 mm[Hg] [facility] (A mmir pressure [facility]ician) Systolic blood 116 mm[Hg] 116 mm[Hg] [facility] (Am maria [place] pressure [facility]ician) Heart rate 62 /min 62 /min [facility] (Ammir [facility]ician) Body temperature 97.9 F 97.9 F [facility] ( Ammir [facility] Physician) Inhaled oxygen 96 % 96 % [facility] (Am mar[facility] [place] concentration [facility]ician) Diastolic blood 68 mm[Hg] 68 mm[Hg] [facility] (A mmir pressure [facility] Physician) Systolic blood 116 mm[Hg] 116 mm[Hg] [facility] (Am maria [place] pressure [facility]ician) Heart rate 62 /min 62 /min [facility] (Amm[facility] Physician) Body temperature 97.9 F 97.9 F [facility] ( Ammir [facility] Physician) Inhaled oxygen 96 % 96 % [facility] (Am maria [place] concentration [facility]) Diastolic blood 68 mm[Hg] 68 mm[Hg] [facility] (A mmir pressure [facility]ician) Systolic blood 116 mm[Hg] 116 mm[Hg] [facility] ([facility] mar[facility] pressure [facility]ician)
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
--- NOTE | 2019-11-27 07:59 | PDOC ---
Attending Attestation - Resident Resident Name: DainaKvng - ED Attending Attestation I have performed the following: I have examined & evaluated the patient, The case was reviewed & discussed with the resident, I agree w/resident's findings & plan, Exceptions are as noted - HPI HPI: 11/27/19 12:30 89 y.o. F PMHx HLD, A-fib on warfarin presenting due to R hand swelling and redness. - Physicial Exam PE: 11/27/19 12:30 Vitals: Triage Vital signs reviewed General Appearance: No acute distress, well nourished well developed, Cardiac: Regular rate and rhythym, no murmurs, no rubs, no gallops, Lungs: Clear to auscultation bilateral, good air movement bilaterally, Abdomen: Soft, non distended, normal bowel sounds, non tender to palpation Extremities: Full range of motion to all extremities, no cyanosis, clubbing, or edema Skin:Right hand swelling with slight lymphangitic spread. Neuro: strength intact to all extremities, sensation intact to all extremities, Psych: Normal mood, normal affect - Medical Decision Making 11/27/19 12:31 Hand cellulitis versus reactive arthritis versus gout Given age and possibility of lymphangitic spread to formal admit to hospital for IV antibiotics and orthopedic consultation Discharge - Discharge Information Problems reviewed: Yes Clinical Impression/Diagnosis: Cellulitis Qualifiers: Site of cellulitis: extremity Site of cellulitis of extremity: upper extremity Laterality: right Qualified Code(s): L03.113 - Cellulitis of right upper limb Condition: Guarded - Follow up/Referral Referrals: Tisha Urban MD [Primary Care Provider] - - Patient Discharge Instructions - Post Discharge Activity
[2019-11-27 09:39] LABS: ALBUMIN 3.5 g/dl (3.4-5.0); BLOOD UREA NITROGEN 12.3 mg/dL (7-18); CALCIUM 8.6 mg/dL (8.5-10.1); CREATININE 0.9 mg/dL (0.55-1.3); POTASSIUM 4.3 mmol/L (3.5-5.1); TOT PROT 7.2 g/dl (6.4-8.2)
[2019-11-27 09:42] LABS: BILIRUBIN,TOTAL 2.4 mg/dL (0.2-1)
[2019-11-27 10:03] LABS: BASO % 0.6 % (0-2.0); HEMATOCRIT 36.7 % (32.4-45.2); HEMOGLOBIN 12.3 GM/dL (10.7-15.3); LYMPH % 24.6 % (8-40); MCH 30.4 pg (25.7-33.7); MCHC 33.6 g/dl (32.0-36.0); MEAN CELL VOLUME 90.6 fl (80-96); MONO % 10.7 % (3.8-10.2); NEUT % 63.1 % (42.8-82.8); PLATELET COUNT 203 K/MM3 (134-434); RBC 4.06 M/mm3 (3.60-5.2); WHITE BLOOD COUNT 8.6 K/mm3 (4.0-10.0)
[2019-11-27] MEDS ORDERED: CLINDAMYCIN 600MG PREMIX IVPB 600 MG/50 ML BAG IVPB ONE ×2 (10:05→10:34)
[2019-11-27 11:29] LABS: ERYTHROCYTE SEDIMENTATION RATE 2 mm/hr (0-30)
--- NOTE | 2019-11-27 14:07 | EKG ---
Test Reason : Blood Pressure : / mmHG Vent. Rate : 067 BPM Atrial Rate : 067 BPM P-R Int : 160 ms QRS Dur : 088 ms QT Int : 414 ms P-R-T Axes : 058 011 152 degrees QTc Int : 437 ms NORMAL SINUS RHYTHM NONSPECIFIC T WAVE ABNORMALITY ABNORMAL ECG WHEN COMPARED WITH ECG OF 05-NOV-2019 10:55, T WAVE VARIATION Confirmed by DAMON SO MD ([id number]) on 11/27/2019 2:07:04 PM Referred By: Confirmed By:DAMON SO MD
--- OUTSIDE RECORDS SUMMARY | 2019-11-27 14:07 | XMS ---
:1930 [address] [place] [address] HOME Email Address DECLINED Preferred Language Finnish Marital Status Not or Adventist Affiliation [place] Race WH Ethnic Group Not [...] is protected by Article 27-F of the [facility] Public Health law. If you continue you may haveaccess to information: Regarding HIV / AIDS; Provided by facilities licensed or operated by the [facility] Office of Mental Health; or Provided by the [facility] Office for People With Developmental Disabilities. If such information is present, then the following [facility] mandated warning applies: This information has been [...] law may result in a fine or long-term sentence or both. A general authorization for the release of medical or other information is NOT sufficient authorization for further disclosure. Encounters Encounter Providers Location Date Indications Data Source(s ) Attender: [facility] 11/22/2019 MED[facility] (A mmir [place] 12:00:00 AM EDT [place] Ph ysician) [facility] 12:00[facility]00 [facility] Attender: [facility] [place] 11/02/2019 12:00:00 AM E DT [facility] 10/[facility]/2019 12:00:00 AM E DT [facility] 10/11/2019 12:00:00 AM E DT [facility] Immunizations Vaccine Date Status [...] Brand Start Product Dose Route Administrative Pharmacy [facility] Indications Reaction Description Data Name Date Form [...] MEGACE complet KAUSHALCE M EDGEN Acetate 40 :58609 2020 ed (Ammir MG/ML Oral 5 12:00: [place] Suspension 00 AM Physicia n) MEGACE:8602 EDT 25 Megestrol MEGACE complet MEGACE M EDGEN Acetate 40 :71337 2020 ed (Ammir MG/ML Oral 5 12:00: [place] Suspension 00 AM Physicia n) MEGACE:8602 EDT 25 Megestrol MEGACE complet KAUSHALCE M EDGEN Acetate 40 :82021 2020 ed (Ammir MG/ML Oral 5 12:00: [place] Suspension 00 AM Physicia n) MEGACE:8602 EDT 25 Megestrol MEGACE complet MEGACE M EDGEN Acetate 40 :73758 2020 ed (Ammir MG/ML Oral 5 12:00: [place] Suspension 00 AM Physicia n) MEGACE:8602 EDT 25 Amoxicillin AUGMEN 09/18/ TABLET 10 complet AUGM ENTIN MEDGEN 500 MG / TIN:61 2019 ed (Ammir Clavulanate 7296 12:00: [place] 125 MG Oral 00 AM Physici an) Tablet EDT AUGMENTIN:6 91996 Amoxicillin AUGMEN 09/18/ TABLET 10 complet AUGM ENTIN MEDGEN 500 MG / TIN:61 2019 ed (Ammir Clavulanate 7296 12:00: [place] 125 MG Oral 00 AM Physici an) Tablet EDT AUGMENTIN:6 34064 Amoxicillin AUGMEN 09/18/ TABLET 10 complet AUGM ENTIN MEDGEN 500 MG / TIN:61 2019 ed (Ammir Clavulanate 7296 12:00: [place] 125 MG Oral 00 AM Physici an) Tablet EDT AUGMENTIN:6 72508 Amoxicillin AUGMEN 09/18/ TABLET 10 complet AUGM ENTIN MEDGEN 500 MG / TIN:61 2019 ed (Ammir Clavulanate 7296 12:00: [place] 125 MG Oral 00 AM Physici an) Tablet EDT AUGMENTIN:6 20947 Warfarin COUMAD 09/17/ TABLET 720 complet COUMADI [...] TABLET 30 complet ZYRTE C MEDGEN hydrochlori :02252 2019 ed (Ammir de 10 MG 26 12:00: [place] Oral Tablet 00 AM Physici an) [Zyrtec] EST ZYRTEC:1020 026 cetirizine ZYRTEC 04/26/ TABLET 30 complet ZYRTE C MEDGEN hydrochlori :54640 2019 ed (Ammir de 10 MG 26 12:00: [place] Oral Tablet 00 AM Physici an) [Zyrtec] EST ZYRTEC:1020 026 cetirizine ZYRTEC 04/26/ TABLET 30 complet ZYRTE C MEDGEN hydrochlori :42350 2019 ed (Ammir de 10 MG 26 12:00: [place] Oral Tablet 00 AM Physici an) [Zyrtec] EST ZYRTEC:1020 026 cetirizine ZYRTEC 04/26/ TABLET 30 complet ZYRTE C MEDGEN hydrochlori :47077 2020 ed (Ammir de 10 MG 26 12:00: [place] Oral Tablet 00 AM Physici an) [Zyrtec] EST ZYRTEC:1020 026 Alprazolam XANAX: 03/30/ TABLET 30 complet XANAX MEDGEN 0.5 MG Oral [id number] 8626 ed (Ammir Tablet 12:00: [place] XANAX:14653 00 AM Physici an) 8 EST Alprazolam XANAX: 03/30/ TABLET 30 complet XANAX MEDGEN 0.5 MG Oral [id number] 2897 ed (Ammir Tablet 12:00: [place] XANAX:28321 00 AM Physici an) 8 EST Alprazolam XANAX: 03/30/ TABLET 30 complet XANAX MEDGEN 0.5 MG Oral [id number] 0118 ed (Ammir Tablet 12:00: [place] XANAX:37329 00 AM Physici an) 8 EST Alprazolam XANAX: 03/30/ TABLET 30 complet XANAX MEDGEN 0.5 MG Oral [id number] 1214 ed (Ammir Tablet 12:00: [place] XANAX:69943 00 AM Physici an) 8 EST Amiodarone AMIODA 01/17/ TABLET 90 complet AMIOD ARONE MEDGEN hydrochlori FLORENCIA:8 2018 ed (Ammir de 200 MG 30813 12:00: [place] Oral Tablet 00 AM Physici an) AMIODARONE: EST [id number] Amiodarone AMIODA 01/17/ TABLET 90 complet AMIOD ARONE MEDGEN hydrochlori FLORENCIA:8 2018 ed (Ammir de 200 MG 58754 12:00: [place] Oral Tablet 00 AM Physici an) AMIODARONE: EST [id number] Amiodarone AMIODA 01/17/ TABLET 90 complet AMIOD ARONE MEDGEN hydrochlori FLORENCIA:8 2018 ed (Ammir de 200 MG 18576 12:00: [place] Oral Tablet 00 AM Physici an) AMIODARONE: EST [id number] Amiodarone AMIODA 01/17/ TABLET 90 complet AMIOD ARONE MEDGEN hydrochlori FLORENCIA:8 2018 ed (Ammir de 200 MG 93144 12:00: [place] Oral Tablet 00 AM Physici an) AMIODARONE: EST [id number] Ergocalcife VITAMI 11/04/ CAPSULE 12 complet VIT MAYS D2 MEDGEN rol 24725 N 2019 ed (Ammir UNT Oral D2:136 12:00: [place] Capsule 7410 00 AM Physician) VITAMIN EDT D2:9903092 Ergocalcife VITAMI 30/ CAPSULE 12 complet VIT MAYS D2 MEDGEN rol 68591 N 2019 ed (Ammir UNT Oral D2:136 12:00: [place] Capsule 7410 00 AM Physician) VITAMIN EDT D2:9988594 Ergocalcife VITAMI 30/ CAPSULE 12 complet VIT MAYS D2 MEDGEN rol 01754 N 2019 ed (Ammir UNT Oral D2:136 12:00: [place] Capsule 7410 00 AM Physician) VITAMIN EDT D2:1308634 Ergocalcife VITAMI 30/ CAPSULE 12 complet VIT MAYS D2 MEDGEN rol 19185 N 2019 ed (Ammir UNT Oral D2:136 12:00: [place] Capsule 7410 00 AM Physician) VITAMIN EDT D2:0535699 Warfarin COUMAD /17/ TABLET 30 complet COUMADI [...] name Policy type Policy ID Covered Covered green party's Policy P margot / Coverage green party ID relationship to [facility] ormation type valencia MEDICARE [id number] SP [id number] [id number] SP [id number] CARE [place]IONS [place] [id number] 1 [id number] PART B DOWNSTATE MEDICARE [id number] SP [id number] N41 MEDICARE [id number] SP [id number] MEDICARE [id number] SP [id number] A Problems, Conditions, and Diagnoses Code Display [...] 12:00:00 AM [place] examination EXAMINATION EST Physician) E78.5 Hyperlipidemia, HYPERLIPIDEMIA, [...] 03/24/2016 MEDGEN (Am maria guadalupe 12:00:00 AM Wlim[place] EST Physician) 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 [...] Phys ician) pathological PATHOLOGICAL fracture FRACTURE 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) Problem 016 MEDGEN (Ammir use of [...] Phys ician) pathological PATHOLOGICAL fracture FRACTURE Z79.01 halfway (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) 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) Problem 016 MEDGEN (Ammir use of [...] Phys ician) pathological PATHOLOGICAL fracture FRACTURE 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) Problem 016 MEDGEN (Ammir use of [...] Phys ician) pathological PATHOLOGICAL fracture FRACTURE 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 ID Date Data Source [id number] 10/04/2019 12:00:00 AM EDT MEDGEN (Ammir [place] [...] results) [place] Physician) ID Date Data Source [id number] 10/04/2019 12:00:00 AM EDT MEDGEN (Ammir [place] [...] NON AFR 50 Below low normal MED[facility] ITALIAN mL/min/1 (Ammir .73m2 [place] Physician) EGFR AFR 60 Normal (applies [facility] ITALIAN mL/min/1 to non-numeric (Ammir .73m2 results) [place] Physician) ID Date Data Source [id number] 10/04/2019 12:00:00 AM EDT MED[facility] (Ammir [place] [...] results) [place] Physician) ID Date Data Source [id number] 10/04/2019 12:00:00 AM EDT [facility] (Ammir [place] [...] NON AFR 50 Below low normal [facility] ITALIAN mL/min/1 (Ammir .73m2 [place] Physician) EGFR AFR 60 Normal (applies [facility] ITALIAN mL/min/1 to non-numeric (Ammir .73m2 results) [place] Physician) ID Date Data Source [id number] 10/04/2019 12:00:00 AM EDT [facility] (Ammir [place] [...] results) [place] Physician) ID Date Data Source [id number] 10/04/2019 12:00:00 AM EDT [facility] (Ammir [place] [...] NON AFR 50 Below low normal [facility] ITALIAN mL/min/1 (Ammir .73m2 [place] Physician) EGFR AFR 60 Normal (applies [facility] ITALIAN mL/min/1 to non-numeric (Ammir .73m2 results) [place] Physician) ID Date Data Source [id number] 10/04/2019 12:00:00 AM EDT MED[facility] (Ammir [place] [...] results) [place] Physician) ID Date Data Source [id number] 10/04/2019 12:00:00 AM EDT MED[facility] (Ammir [place] [...] NON AFR 50 Below low normal MED[facility] ITALIAN mL/min/1 (Ammir .73m2 [place] Physician) EGFR AFR 60 Normal (applies [facility] ITALIAN mL/min/1 to non-numeric (Ammir .73m2 results) [place] Physician) ID Date Data Source [id number] 09/09/2019 06:30:00 PM EDT [facility] Name Value Range Interpretation Description Data Sup porting Code Source(s) Document(s ) SARS [facility] coronavirus 2 RNA This lab was ordered by [facility] and reported by [facility]. ID Date Data Source [id number] 08/16/2019 12:00:00 AM EDT [facility] (Ammir [place] Physician) Name Value Range Interpretation Description Data Sup porting Code Source(s) Document(s ) TSH,3RD 2.23 Normal (applies to [facility] GENERATION uIU/mL non-numeric (Ammir results) [place] Physician) T4 FREE, 1.58 Normal (applies to [facility] THYROXINE ng/dL non-numeric (Ammir results) [place] Physician) ID Date Data Source [id number] 08/16/2019 12:00:00 AM EDT [facility] (Ammir [place] Physician) Name Value Range Interpretation Description Data Sup porting Code Source(s) Document(s ) Ferritin 28.8 Normal (applies to [facility] (Amm ir [Interpretat ng/mL non-numeric [place] ion] in results) Physician) Blood ID Date Data Source [id number] 08/16/2019 12:00:00 AM EDT [facility] (Ammir [place] [...] (Ammir [place] Physician) ID Date Data Source [id number] 08/16/2019 12:00:00 AM EDT [facility] (Ammir [place] Physician) Name Value Range Interpretation Description Data Sup porting Code Source(s) Document(s ) FOLATE SERUM 10.2 Normal (applies to [facility] ( Ammir ng/mL non-numeric [place] results) Physician) VITAMIN B12 945 pg/mL Above high normal [facility] (Am maria guadalupe [place] Physician) ID Date Data Source [id number] 08/16/2019 12:00:00 AM EDT [facility] (Ammir [place] Physician) Name Value Range Interpretation Description Data Sup porting Code Source(s) Document(s ) VITAMIN D 28.23 Below low normal [facility] (Ammir 25-HYDROXY ng/mL [place] Physician) ID Date Data Source [id number] 08/16/2019 12:00:00 AM EDT [facility] (Ammir [place] [...] results) [place] Physician) ID Date Data Source [id number] 08/16/2019 12:00:00 AM EDT [facility] (Ammir [place] Physician) Name Value Range Interpretation Code Description Data Ning rce(s) Supporting Document(s ) IRON, 69 ug/dL Normal (applies to [facility] (Amm ir TOTAL non-numeric [place] results) Physician) ID Date Data Source [id number] 08/16/2019 12:00:00 AM EDT [facility] (Ammir [place] [...] results) [place] Physician) ID Date Data Source [id number] 08/16/2019 12:00:00 AM EDT [facility] (Ammir [place] [...] EGFR NON AFR 63 Normal (applies [facility] ITALIAN mL/min/1 to non-numeric (Ammir .73m2 results) [place] Physician) EGFR AFR 76 Normal (applies [facility] ITALIAN mL/min/1 to non-numeric (Ammir .73m2 results) [place] Physician) ID Date Data Source [id number] 08/16/2019 12:00:00 AM EDT [facility] (Ammir [place] Physician) Name Value Range Interpretation Description Data Sup porting Code Source(s) Document(s ) TSH,3RD 2.23 Normal (applies to [facility] GENERATION uIU/mL non-numeric (Ammir results) [place] Physician) T4 FREE, 1.58 Normal (applies to [facility] THYROXINE ng/dL non-numeric (Ammir results) [place] Physician) ID Date Data Source [id number] 08/16/2019 12:00:00 AM EDT [facility] (Ammir [place] Physician) Name Value Range Interpretation Description Data Sup porting Code Source(s) Document(s ) Ferritin 28.8 Normal (applies to [facility] (Amm ir [Interpretat ng/mL non-numeric [place] ion] in results) Physician) Blood ID Date Data Source [id number] 08/16/2019 12:00:00 AM EDT [facility] (Ammir [place] [...] (Ammir [place] Physician) ID Date Data Source [id number] 08/16/2019 12:00:00 AM EDT [facility] (Ammir [place] Physician) Name Value Range Interpretation Description Data Sup porting Code Source(s) Document(s ) FOLATE SERUM 10.2 Normal (applies to MED[facility] ( Ammir ng/mL non-numeric [place] results) Physician) VITAMIN B12 945 pg/mL Above high normal [facility] (Am maria guadalupe [place] Physician) ID Date Data Source [id number] 08/16/2019 12:00:00 AM EDT [facility] (Ammir [place] Physician) Name Value Range Interpretation Description Data Sup porting Code Source(s) Document(s ) VITAMIN D 28.23 Below low normal [facility] (Ammir 25-HYDROXY ng/mL [place] Physician) ID Date Data Source [id number] 08/16/2019 12:00:00 AM EDT [facility] (Ammir [place] [...] results) [place] Physician) ID Date Data Source [id number] 08/16/2019 12:00:00 AM EDT [facility] (Ammir [place] Physician) Name Value Range Interpretation Code Description Data Ning rce(s) Supporting Document(s ) IRON, 69 ug/dL Normal (applies to [facility] (Amm ir TOTAL non-numeric [place] results) Physician) ID Date Data Source [id number] 08/16/2019 12:00:00 AM EDT [facility] (Ammir [place] [...] results) [place] Physician) ID Date Data Source [id number] 08/16/2019 12:00:00 AM EDT [facility] (Ammir [place] [...] EGFR NON AFR 63 Normal (applies [facility] ITALIAN mL/min/1 to non-numeric (Ammir .73m2 results) [place] Physician) EGFR AFR 76 Normal (applies [facility] ITALIAN mL/min/1 to non-numeric (Ammir .73m2 results) [place] Physician) ID Date Data Source [id number] 08/16/2019 12:00:00 AM EDT [facility] (Ammir [place] Physician) Name Value Range Interpretation Description Data Sup porting Code Source(s) Document(s ) TSH,3RD 2.23 Normal (applies to [facility] GENERATION uIU/mL non-numeric (Ammir results) [place] Physician) T4 FREE, 1.58 Normal (applies to [facility] THYROXINE ng/dL non-numeric (Ammir results) [place] Physician) ID Date Data Source [id number] 08/16/2019 12:00:00 AM EDT [facility] (Ammir [place] Physician) Name Value Range Interpretation Description Data Sup porting Code Source(s) Document(s ) Ferritin 28.8 Normal (applies to [facility] (Amm ir [Interpretat ng/mL non-numeric [place] ion] in results) Physician) Blood ID Date Data Source [id number] 08/16/2019 12:00:00 AM EDT [facility] (Ammir [place] [...] (Ammir [place] Physician) ID Date Data Source [id number] 08/16/2019 12:00:00 AM EDT [facility] (Ammir [place] Physician) Name Value Range Interpretation Description Data Sup porting Code Source(s) Document(s ) FOLATE SERUM 10.2 Normal (applies to [facility] ( Ammir ng/mL non-numeric [place] results) Physician) VITAMIN B12 945 pg/mL Above high normal [facility] (Am maria guadalupe [place] Physician) ID Date Data Source [id number] 08/16/2019 12:00:00 AM EDT [facility] (Ammir [place] Physician) Name Value Range Interpretation Description Data Sup porting Code Source(s) Document(s ) VITAMIN D 28.23 Below low normal [facility] (Ammir 25-HYDROXY ng/mL [place] Physician) ID Date Data Source [id number] 08/16/2019 12:00:00 AM EDT [facility] (Ammir [place] [...] results) [place] Physician) ID Date Data Source [id number] 08/16/2019 12:00:00 AM EDT [facility] (Ammir [place] Physician) Name Value Range Interpretation Code Description Data Ning rce(s) Supporting Document(s ) IRON, 69 ug/dL Normal (applies to [facility] (Amm ir TOTAL non-numeric [place] results) Physician) ID Date Data Source [id number] 08/16/2019 12:00:00 AM EDT [facility] (Ammir [place] [...] results) [place] Physician) ID Date Data Source [id number] 08/16/2019 12:00:00 AM EDT [facility] (Ammir [place] [...] EGFR NON AFR 63 Normal (applies [facility] ITALIAN mL/min/1 to non-numeric (Ammir .73m2 results) [place] Physician) EGFR AFR 76 Normal (applies [facility] ITALIAN mL/min/1 to non-numeric (Ammir .73m2 results) [place] Physician) ID Date Data Source [id number] 08/16/2019 12:00:00 AM EDT [facility] (Ammir [place] Physician) Name Value Range Interpretation Description Data Sup porting Code Source(s) Document(s ) TSH,3RD 2.23 Normal (applies to [facility] GENERATION uIU/mL non-numeric (Ammir results) [place] Physician) T4 FREE, 1.58 Normal (applies to [facility] THYROXINE ng/dL non-numeric (Ammir results) [place] Physician) ID Date Data Source [id number] 08/16/2019 12:00:00 AM EDT [facility] (Ammir [place] Physician) Name Value Range Interpretation Description Data Sup porting Code Source(s) Document(s ) Ferritin 28.8 Normal (applies to [facility] (Amm ir [Interpretat ng/mL non-numeric [place]mar ion] in results) Physician) Blood ID Date Data Source [id number] 08/16/2019 12:00:00 AM EDT [facility] (Ammir [place] [...] (Ammir [place] Physician) ID Date Data Source [id number] 08/16/2019 12:00:00 AM EDT [facility] (Ammir [place] Physician) Name Value Range Interpretation Description Data Sup porting Code Source(s) Document(s ) FOLATE SERUM 10.2 Normal (applies to [facility] ( Ammir ng/mL non-numeric [place] results) Physician) VITAMIN B12 945 pg/mL Above high normal [facility] (Am maria guadalupe [place] Physician) ID Date Data Source [id number] 08/16/2019 12:00:00 AM EDT [facility] (Ammir [place] Physician) Name Value Range Interpretation Description Data Sup porting Code Source(s) Document(s ) VITAMIN D 28.23 Below low normal [facility] (Ammir 25-HYDROXY ng/mL [place] Physician) ID Date Data Source [id number] 08/16/2019 12:00:00 AM EDT [facility] (Ammir [place]mar [...] results) [place] Physician) ID Date Data Source [id number] 08/16/2019 12:00:00 AM EDT [facility] (Ammir [place] Physician) Name Value Range Interpretation Code Description Data Ning rce(s) Supporting Document(s ) IRON, 69 ug/dL Normal (applies to [facility] (Amm ir TOTAL non-numeric [place] results) Physician) ID Date Data Source [id number] 08/16/2019 12:00:00 AM EDT [facility] (Ammir [place] [...] results) [place] Physician) ID Date Data Source [id number] 08/16/2019 12:00:00 AM EDT [facility] (Ammir [place] [...] EGFR NON AFR 63 Normal (applies [facility] ITALIAN mL/min/1 to non-numeric (Ammir .73m2 results) [place] Physician) EGFR AFR 76 Normal (applies [facility] ITALIAN mL/min/1 to non-numeric (Ammir .73m2 results) [place] Physician) ID Date Data Source [id number] 04/26/2019 12:00:00 AM EST [facility] (Ammir [place] [...] Organism specific culture ID Date Data Source [id number] 04/26/2019 12:00:00 AM EST [facility] (Ammir [place] [...] Organism specific culture ID Date Data Source [id number] 04/26/2019 12:00:00 AM EST [facility] (Ammir [place] [...] Organism specific culture ID Date Data Source [id number] 04/26/2019 12:00:00 AM EST [facility] (Ammir [place] [...] Organism specific culture ID Date Data Source [id number] 03/07/2019 12:00:00 AM EST [facility] (Ammir [place] [...] EGFR NON AFR 63 Normal (applies [facility] ITALIAN mL/min/1 to non-numeric (Ammir .73m2 results) [place] Physician) EGFR AFR 76 Normal (applies [facility] ITALIAN mL/min/1 to non-numeric (Ammir .73m2 results) [place] Physician) ID Date Data Source [id number] 03/07/2019 12:00:00 AM EST [facility] (Ammir [place]mar [...] results) [place] Physician) ID Date Data Source [id number] 03/07/2019 12:00:00 AM EST [facility] (Ammir [place] Physician) Name Value Range Interpretation Description Data Sup porting Code Source(s) Document(s ) T4 FREE, 1.68 Normal (applies to [facility] THYROXINE ng/dL non-numeric (Ammir results) [place] Physician) TSH,3RD 3.01 Normal (applies to [facility] GENERATION uIU/mL non-numeric (Ammir results) [place] Physician) ID Date Data Source [id number] 03/07/2019 12:00:00 AM EST [facility] (Ammir [place] Physician) Name Value Range Interpretation Description Data Sup porting Code Source(s) Document(s ) Ferritin 86.5 Normal (applies to [facility] (Amm ir [Interpretat ng/mL non-numeric [place]mar ion] in results) Physician) Blood ID Date Data Source [id number] 03/07/2019 12:00:00 AM EST [facility] (Ammir [place]mar [...] results) [place] Physician) ID Date Data Source [id number] 03/07/2019 12:00:00 AM EST [facility] (Ammir [place]mar [...] results) [place] Physician) ID Date Data Source [id number] 03/07/2019 12:00:00 AM EST [facility] (Ammir [place] Physician) Name Value Range Interpretation Description Data Sup porting Code Source(s) Document(s ) FOLATE SERUM 13.7 Normal (applies to [facility] ( Ammir ng/mL non-numeric [place] results) Physician) VITAMIN B12 674 pg/mL Normal (applies to [facility] (A mmir non-numeric [place] results) Physician) ID Date Data Source [id number] 03/07/2019 12:00:00 AM EST [facility] (Ammir [place] Physician) Name Value Range Interpretation Description Data Sup porting Code Source(s) Document(s ) VITAMIN D 30.82 Below low normal [facility] (Ammir 25-HYDROXY ng/mL [place] Physician) ID Date Data Source [id number] 03/07/2019 12:00:00 AM EST [facility] (Ammir [place] Physician) Name Value Range Interpretation Code Description Data Ning rce(s) Supporting Document(s ) URIC ACID 2.6 mg/dL Below low normal [facility] (Ammir [place] Physician) ID Date Data Source [id number] 03/07/2019 12:00:00 AM EST [facility] (Ammir [place] Physician) Name Value Range Interpretation Code Description Data Supporting Source(s) Document(s ) IRON, 101 ug/dL Normal (applies to [facility] (Amm ir TOTAL non-numeric [place] results) Physician) ID Date Data Source [id number] 03/07/2019 12:00:00 AM EST [facility] (Ammir [place] Physician) Name Value Range Interpretation Description Data Sup porting Code Source(s) Document(s ) PROTHROMBIN 27.4 sec Above high normal [facility] TIME, PT (Ammir [place] Physician) INR 2.37 Above high normal [facility] (Ammir [place] Physician) ID Date Data Source [id number] 03/07/2019 12:00:00 AM EST [facility] (Ammir [place] [...] EGFR NON AFR 63 Normal (applies [facility] ITALIAN mL/min/1 to non-numeric (Ammir .73m2 results) [place] Physician) EGFR AFR 76 Normal (applies [facility] ITALIAN mL/min/1 to non-numeric (Ammir .73m2 results) [place] Physician) ID Date Data Source [id number] 03/07/2019 12:00:00 AM EST [facility] (Ammir [place]mar [...] results) [place] Physician) ID Date Data Source [id number] 03/07/2019 12:00:00 AM EST [facility] (Ammir [place] Physician) Name Value Range Interpretation Description Data Sup porting Code Source(s) Document(s ) T4 FREE, 1.68 Normal (applies to [facility] THYROXINE ng/dL non-numeric (Ammir results) [place] Physician) TSH,3RD 3.01 Normal (applies to [facility] GENERATION uIU/mL non-numeric (Ammir results) [place] Physician) ID Date Data Source [id number] 03/07/2019 12:00:00 AM EST [facility] (Ammir [place] Physician) Name Value Range Interpretation Description Data Sup porting Code Source(s) Document(s ) Ferritin 86.5 Normal (applies to [facility] (Amm ir [Interpretat ng/mL non-numeric [place] ion] in results) Physician) Blood ID Date Data Source [id number] 03/07/2019 12:00:00 AM EST [facility] (Ammir [place]mar [...] results) [place] Physician) ID Date Data Source [id number] 03/07/2019 12:00:00 AM EST [facility] (Ammir [place]mar [...] results) [place] Physician) ID Date Data Source [id number] 03/07/2019 12:00:00 AM EST [facility] (Ammir [place] Physician) Name Value Range Interpretation Description Data Sup porting Code Source(s) Document(s ) FOLATE SERUM 13.7 Normal (applies to [facility] ( Ammir ng/mL non-numeric [place] results) Physician) VITAMIN B12 674 pg/mL Normal (applies to [facility] (A mmir non-numeric [place] results) Physician) ID Date Data Source [id number] 03/07/2019 12:00:00 AM EST [facility] (Ammir [place] Physician) Name Value Range Interpretation Description Data Sup porting Code Source(s) Document(s ) VITAMIN D 30.82 Below low normal [facility] (Ammir 25-HYDROXY ng/mL [place] Physician) ID Date Data Source [id number] 03/07/2019 12:00:00 AM EST [facility] (Ammir [place] Physician) Name Value Range Interpretation Code Description Data Ning rce(s) Supporting Document(s ) URIC ACID 2.6 mg/dL Below low normal [facility] (Ammir [place] Physician) ID Date Data Source [id number] 03/07/2019 12:00:00 AM EST [facility] (Ammir [place] Physician) Name Value Range Interpretation Code Description Data Supporting Source(s) Document(s ) IRON, 101 ug/dL Normal (applies to [facility] (Amm ir TOTAL non-numeric [place] results) Physician) ID Date Data Source [id number] 03/07/2019 12:00:00 AM EST [facility] (Ammir Wilmar Physician) Name Value Range Interpretation Description Data Sup porting Code Source(s) Document(s ) PROTHROMBIN 27.4 sec Above high normal [facility] TIME, PT ([facility]mm[facility]mar Physician) INR 2.37 Above high normal [facility] ([facility]mm[facility] Wilmar Physician) ID Date Data Source [id number] 03/07/2019 12:00:00 AM EST [facility] (Ammir Wilmar [...] EGFR NON AFR 63 Normal (applies [facility] ITALIAN mL/min/1 to non-numeric (Ammir .73m2 results) [facility] Physician) EGFR AFR 76 Normal (applies [facility] ITALIAN mL/min/1 to non-numeric (Ammir .73m2 results) [facility] Physician) ID Date Data Source [id number] 03/07/2019 12:00:00 AM EST [facility] (Ammir Wilmar [...] results) Wilmar Physician) ID Date Data Source [id number] 03/07/2019 12:00:00 AM EST [facility] ([facility]mm[facility] Wilmar Physician) Name Value Range Interpretation Description Data Sup porting Code Source(s) Document(s ) T4 FREE, 1.68 Normal (applies to [facility] THYROXINE ng/dL non-numeric (Ammir results) [facility] Physician) TSH,3RD 3.01 Normal (applies to [facility] GENERATION uIU/mL non-numeric (Ammir results) [facility] Physician) ID Date Data Source [id number] 03/07/2019 12:00:00 AM EST [facility] ([facility]mm[facility] Wilmar Physician) Name Value Range Interpretation Description Data Sup porting Code Source(s) Document(s ) Ferritin 86.5 Normal (applies to [facility] (Amm ir [Interpretat ng/mL non-numeric Wilmar ion] in results) Physician) Blood ID Date Data Source [id number] 03/07/2019 12:00:00 AM EST [facility] (Ammir Wilmar [...] results) [facility]mar Physician) ID Date Data Source [id number] 03/07/2019 12:00:00 AM EST [facility] (Ammir Wilmar [...] Normal (applies [facility] to non-numeric (Ammir results) Wilmra Physician) MCHC 33 g/dL Normal (applies [facility] [...] results) [facility] Physician) ID Date Data Source [id number] 03/07/2019 12:00:00 AM EST [facility] ([facility]mm[facility]mar Physician) Name Value Range Interpretation Description Data Sup porting Code Source(s) Document(s ) FOLATE SERUM 13.7 Normal (applies to [facility] ( Ammir ng/mL non-numeric Wilmar results) Physician) VITAMIN B12 674 pg/mL Normal (applies to [facility] (A mmir non-numeric Wilmar results) Physician) ID Date Data Source [id number] 03/07/2019 12:00:00 AM EST [facility] ([facility]mm[facility] Wilmar Physician) Name Value Range Interpretation Description Data Sup porting Code Source(s) Document(s ) VITAMIN D 30.82 Below low normal [facility] (Ammir 25-HYDROXY ng/mL [facility] Physician) ID Date Data Source [id number] 03/07/2019 12:00:00 AM EST [facility] ([facility]mm[facility]mar Physician) Name Value Range Interpretation Code Description Data Ning rce(s) Supporting Document(s ) URIC ACID 2.6 mg/dL Below low normal [facility] (Amm[facility] Wilmar Physician) ID Date Data Source [id number] 03/07/2019 12:00:00 AM EST [facility] ([facility]mm[facility] Wilmar Physician) Name Value Range Interpretation Code Description Data Supporting Source(s) Document(s ) IRON, 101 ug/dL Normal (applies to [facility] (Amm ir TOTAL non-numeric Wilmar results) Physician) ID Date Data Source [id number] 03/07/2019 12:00:00 AM EST [facility] (Amm[facility] Wilmar Physician) Name Value Range Interpretation Description Data Sup porting Code Source(s) Document(s ) PROTHROMBIN 27.4 sec Above high normal [facility] TIME, PT (Ammir Wilmar Physician) INR 2.37 Above high normal [facility] (Ammir Wilmar Physician) ID Date Data Source [id number] 03/07/2019 12:00:00 AM EST [facility] (Ammir Wilmar [...] results) Wilmar Physician) ID Date Data Source [id number] 03/07/2019 12:00:00 AM EST [facility] (Ammir Wilmar Physician) Name Value Range Interpretation Description Data Sup porting Code Source(s) Document(s ) T4 FREE, 1.68 Normal (applies to [facility] THYROXINE ng/dL non-numeric (Ammir results) [facility] Physician) TSH,3RD 3.01 Normal (applies to [facility] GENERATION uIU/mL non-numeric (Ammir results) [facility] Physician) ID Date Data Source [id number] 03/07/2019 12:00:00 AM EST [facility] (Ammir Wilmar Physician) Name Value Range Interpretation Description Data Sup porting Code Source(s) Document(s ) Ferritin 86.5 Normal (applies to [facility] (Amm ir [Interpretat ng/mL non-numeric Wilmar ion] in results) Physician) Blood ID Date Data Source [id number] 03/07/2019 12:00:00 AM EST [facility] (Ammir Wilmar [...] results) [facility]mar Physician) ID Date Data Source [id number] 03/07/2019 12:00:00 AM EST [facility] (Ammir Wilmar [...] [facility] to non-numeric (Ammir results) [place] Physician) Neutrophil Abs 2.53 Normal (applies [facility] [...] results) [facility] Physician) ID Date Data Source [id number] 03/07/2019 12:00:00 AM EST [facility] (Ammir Wilmar Physician) Name Value Range Interpretation Description Data Sup porting Code Source(s) Document(s ) FOLATE SERUM 13.7 Normal (applies to [facility] ( Ammir ng/mL non-numeric Wilmar results) Physician) VITAMIN B12 674 pg/mL Normal (applies to [facility] (A mmir non-numeric [place]mar results) Physician) ID Date Data Source [id number] 03/07/2019 12:00:00 AM EST [facility] (Ammir Wilmar Physician) Name Value Range Interpretation Description Data Sup porting Code Source(s) Document(s ) VITAMIN D 30.82 Below low normal [facility] (Ammir 25-HYDROXY ng/mL [facility] Physician) ID Date Data Source [id number] 03/07/2019 12:00:00 AM EST [facility] (Ammir Wilmar Physician) Name Value Range Interpretation Code Description Data Ning rce(s) Supporting Document(s ) URIC ACID 2.6 mg/dL Below low normal [facility] (Ammir Wilmar Physician) ID Date Data Source [id number] 03/07/2019 12:00:00 AM EST [facility] (Ammir Wilmar Physician) Name Value Range Interpretation Code Description Data Supporting Source(s) Document(s ) IRON, 101 ug/dL Normal (applies to [facility] (Amm ir TOTAL non-numeric [facility]mar results) Physician) ID Date Data Source [id number] 03/07/2019 12:00:00 AM EST [facility] (Ammir Wilmar Physician) Name Value Range Interpretation Description Data Sup porting Code Source(s) Document(s ) PROTHROMBIN 27.4 sec Above high normal [facility] TIME, PT (Ammir Wilmar Physician) INR 2.37 Above high normal [facility] (Ammir Wilmar Physician) ID Date Data Source [id number] 03/07/2019 12:00:00 AM EST [facility] (Ammir Wilmar [...] EGFR NON AFR 63 Normal (applies [facility] ITALIAN mL/min/1 to non-numeric (Ammir .73m2 results) [facility] Physician) EGFR AFR 76 Normal (applies [facility] ITALIAN mL/min/1 to non-numeric (Ammir .73m2 results) [facility] Physician) ID Date Data Source [id number] 12/28/2018 12:00:00 AM EDT [facility] (Ammir Wilmar [...] results) [facility] Physician) ID Date Data Source [id number] 12/28/2018 12:00:00 AM EDT [facility] ([facility]mm[facility] Wilmar Physician) Name Value Range Interpretation Description Data Sup porting Code Source(s) Document(s ) T4 FREE, 1.53 Normal (applies to [facility] THYROXINE ng/dL non-numeric (Ammir results) [facility] Physician) TSH,3RD 2.87 Normal (applies to [facility] GENERATION uIU/mL non-numeric (Ammir results) [facility] Physician) ID Date Data Source [id number] 12/28/2018 12:00:00 AM EDT [facility] (Ammir Wilmar Physician) Name Value Range Interpretation Description Data Sup porting Code Source(s) Document(s ) Ferritin 57.8 Normal (applies to [facility] (Amm ir [Interpretat ng/mL non-numeric [place]mar ion] in results) Physician) Blood ID Date Data Source [id number] 12/28/2018 12:00:00 AM EDT [facility] (Ammir Wilmar [...] results) [facility] Physician) ID Date Data Source [id number] 12/28/2018 12:00:00 AM EDT [facility] (Ammir Wilmar [...] results) [facility] Physician) ID Date Data Source [id number] 12/28/2018 12:00:00 AM EDT [facility] (Ammir Wilmar Physician) Name Value Range Interpretation Description Data Sup porting Code Source(s) Document(s ) FOLATE SERUM 10.8 Normal (applies to [facility] ( Ammir ng/mL non-numeric Wil[facility] results) Physician) VITAMIN B12 621 pg/mL Normal (applies to [facility] (A mmir non-numeric Wilmar results) Physician) ID Date Data Source [id number] 12/28/2018 12:00:00 AM EDT [facility] (Ammir Wilmar Physician) Name Value Range Interpretation Description Data Sup porting Code Source(s) Document(s ) VITAMIN D 22.57 Below low normal [facility] (Ammir 25-HYDROXY ng/mL [facility] Physician) ID Date Data Source [id number] 12/28/2018 12:00:00 AM EDT [facility] (Ammir Wilmar Physician) Name Value Range Interpretation Code Description Data Ning rce(s) Supporting Document(s ) IRON, 66 ug/dL Normal (applies to [facility] (Amm ir TOTAL non-numeric Wilmar results) Physician) ID Date Data Source [id number] 12/28/2018 12:00:00 AM EDT [facility] (Ammir Wilmar [...] EGFR NON AFR 63 Normal (applies [facility] ITALIAN mL/min/1 to non-numeric (Ammir .73m2 results) [facility] Physician) EGFR AFR 76 Normal (applies [facility] ITALIAN mL/min/1 to non-numeric (Ammir .73m2 results) [facility] Physician) ID Date Data Source [id number] 12/28/2018 12:00:00 AM EDT [facility] (Ammir Wilmar [...] results) [facility] Physician) ID Date Data Source [id number] 12/28/2018 12:00:00 AM EDT [facility] (Ammir Wilmar Physician) Name Value Range Interpretation Description Data Sup porting Code Source(s) Document(s ) T4 FREE, 1.53 Normal (applies to [facility] THYROXINE ng/dL non-numeric (Ammir results) [facility] Physician) TSH,3RD 2.87 Normal (applies to [facility] GENERATION uIU/mL non-numeric (Ammir results) [facility] Physician) ID Date Data Source [id number] 12/28/2018 12:00:00 AM EDT [facility] (Ammir Wilmar Physician) Name Value Range Interpretation Description Data Sup porting Code Source(s) Document(s ) Ferritin 57.8 Normal (applies to [facility] (Amm ir [Interpretat ng/mL non-numeric Wilmar ion] in results) Physician) Blood ID Date Data Source [id number] 12/28/2018 12:00:00 AM EDT [facility] (Ammir Wilmar [...] results) [facility] Physician) ID Date Data Source [id number] 12/28/2018 12:00:00 AM EDT [facility] (Ammir Wilmar [...] results) [facility] Physician) ID Date Data Source [id number] 12/28/2018 12:00:00 AM EDT [facility] (Ammir Wilmar Physician) Name Value Range Interpretation Description Data Sup porting Code Source(s) Document(s ) FOLATE SERUM 10.8 Normal (applies to [facility] ( Ammir ng/mL non-numeric [facility] results) Physician) VITAMIN B12 621 pg/mL Normal (applies to [facility] (A mmir non-numeric Wilmar results) Physician) ID Date Data Source [id number] 12/28/2018 12:00:00 AM EDT [facility] (Ammir Wilmar Physician) Name Value Range Interpretation Description Data Sup porting Code Source(s) Document(s ) VITAMIN D 22.57 Below low normal [facility] (Ammir 25-HYDROXY ng/mL [facility] Physician) ID Date Data Source [id number] 12/28/2018 12:00:00 AM EDT [facility] (Ammir Wilmar Physician) Name Value Range Interpretation Code Description Data Ning rce(s) Supporting Document(s ) IRON, 66 ug/dL Normal (applies to [facility] (Amm ir TOTAL non-numeric Wilmar results) Physician) ID Date Data Source [id number] 12/28/2018 12:00:00 AM EDT [facility] (Ammir Wilmar [...] EGFR NON AFR 63 Normal (applies [facility] ITALIAN mL/min/1 to non-numeric (Ammir .73m2 results) [facility] Physician) EGFR AFR 76 Normal (applies [facility] ITALIAN mL/min/1 to non-numeric (Ammir .73m2 results) [facility] Physician) ID Date Data Source [id number] 12/28/2018 12:00:00 AM EDT [facility] (Ammir Wilmar [...] results) Wil[facility] Physician) ID Date Data Source [id number] 12/28/2018 12:00:00 AM EDT [facility] (Ammir Wilmar Physician) Name Value Range Interpretation Description Data Sup porting Code Source(s) Document(s ) T4 FREE, 1.53 Normal (applies to [facility] THYROXINE ng/dL non-numeric (Ammir results) [facility] Physician) TSH,3RD 2.87 Normal (applies to [facility] GENERATION uIU/mL non-numeric (Ammir results) [facility] Physician) ID Date Data Source [id number] 12/28/2018 12:00:00 AM EDT [facility] (Ammir Wilmar Physician) Name Value Range Interpretation Description Data Sup porting Code Source(s) Document(s ) Ferritin 57.8 Normal (applies to [facility] (Amm ir [Interpretat ng/mL non-numeric Wilmar ion] in results) Physician) Blood ID Date Data Source [id number] 12/28/2018 12:00:00 AM EDT [facility] (Ammir Wilmar [...] results) Wil[facility] Physician) ID Date Data Source [id number] 12/28/2018 12:00:00 AM EDT [facility] (Ammir Wilmar [...] volume to non-numeric (Ammir fraction] of results) [facility] Blood by Physician) Automated count MCV 91.1 [...] results) [facility] Physician) ID Date Data Source [id number] 12/28/2018 12:00:00 AM EDT [facility] (Ammir Wilmar Physician) Name Value Range Interpretation Description Data Sup porting Code Source(s) Document(s ) FOLATE SERUM 10.8 Normal (applies to [facility] ( Ammir ng/mL non-numeric Wilmar results) Physician) VITAMIN B12 621 pg/mL Normal (applies to [facility] (A mmir non-numeric Wilmar results) Physician) ID Date Data Source [id number] 12/28/2018 12:00:00 AM EDT [facility] (Ammir Wilmar Physician) Name Value Range Interpretation Description Data Sup porting Code Source(s) Document(s ) VITAMIN D 22.57 Below low normal [facility] (Ammir 25-HYDROXY ng/mL [facility] Physician) ID Date Data Source [id number] 12/28/2018 12:00:00 AM EDT [facility] (Ammir Wilmar Physician) Name Value Range Interpretation Code Description Data Ning rce(s) Supporting Document(s ) IRON, 66 ug/dL Normal (applies to [facility] (Amm ir TOTAL non-numeric Wilmar results) Physician) ID Date Data Source [id number] 12/28/2018 12:00:00 AM EDT [facility] (Ammir Wilmar [...] EGFR NON AFR 63 Normal (applies [facility] ITALIAN mL/min/1 to non-numeric (Ammir .73m2 results) [facility] Physician) EGFR AFR 76 Normal (applies [facility] ITALIAN mL/min/1 to non-numeric (Ammir .73m2 results) [facility] Physician) ID Date Data Source [id number] 12/28/2018 12:00:00 AM EDT [facility] (Ammir Wilmar [...] results) [facility] Physician) ID Date Data Source [id number] 12/28/2018 12:00:00 AM EDT [facility] (Ammir Wilmar Physician) Name Value Range Interpretation Description Data Sup porting Code Source(s) Document(s ) T4 FREE, 1.53 Normal (applies to [facility] THYROXINE ng/dL non-numeric (Ammir results) [facility] Physician) TSH,3RD 2.87 Normal (applies to [facility] GENERATION uIU/mL non-numeric (Ammir results) [facility] Physician) ID Date Data Source [id number] 12/28/2018 12:00:00 AM EDT [facility] (Ammir Wilmar Physician) Name Value Range Interpretation Description Data Sup porting Code Source(s) Document(s ) Ferritin 57.8 Normal (applies to [facility] (Amm ir [Interpretat ng/mL non-numeric Wilmar ion] in results) Physician) Blood ID Date Data Source [id number] 12/28/2018 12:00:00 AM EDT [facility] (Ammir Wilmar [...] results) [facility] Physician) ID Date Data Source [id number] 12/28/2018 12:00:00 AM EDT [facility] (Ammir Wilmar [...] Granulocyte Abs 10(3)/uL to non-numeric (Ammir results) Wilamr Physician) Neutrophil % 55.00 % Normal (applies [...] results) [facility] Physician) ID Date Data Source [id number] 12/28/2018 12:00:00 AM EDT [facility] (Ammir Wilmar Physician) Name Value Range Interpretation Description Data Sup porting Code Source(s) Document(s ) FOLATE SERUM 10.8 Normal (applies to [facility] ( Ammir ng/mL non-numeric Wilmar results) Physician) VITAMIN B12 621 pg/mL Normal (applies to [facility] (A mmir non-numeric Wilmar results) Physician) ID Date Data Source [id number] 12/28/2018 12:00:00 AM EDT [facility] (Ammir Wilmar Physician) Name Value Range Interpretation Description Data Sup porting Code Source(s) Document(s ) VITAMIN D 22.57 Below low normal [facility] (Ammir 25-HYDROXY ng/mL [facility] Physician) ID Date Data Source [id number] 12/28/2018 12:00:00 AM EDT [facility] (Ammir Wilmar Physician) Name Value Range Interpretation Code Description Data Ning rce(s) Supporting Document(s ) IRON, 66 ug/dL Normal (applies to [facility] (Amm ir TOTAL non-numeric Wilmar results) Physician) ID Date Data Source [id number] 12/28/2018 12:00:00 AM EDT [facility] (Ammir Wilmar [...] EGFR NON AFR 63 Normal (applies [facility] ITALIAN mL/min/1 to non-numeric (Ammir .73m2 results) [place] Physician) EGFR AFR 76 Normal (applies [facility] ITALIAN mL/min/1 to non-numeric (Ammir .73m2 results) [place] Physician) ID Date Data Source [id number] 11/02/2018 12:00:00 AM EDT [facility] (Ammir Wilmar [...] results) [facility] Physician) ID Date Data Source [id number] 11/02/2018 12:00:00 AM EDT [facility] (Ammir Wilmar [...] NON AFR 56 Below low normal [facility] ITALIAN mL/min/1 (Ammir .73m2 [place] Physician) EGFR AFR 67 Normal (applies [facility] ITALIAN mL/min/1 to non-numeric (Ammir .73m2 results) [place] Physician) ID Date Data Source [id number] 11/02/2018 12:00:00 AM EDT [facility] Name Value Range Interpretation Description Data Sup porting Code Source(s) Document(s ) T4 FREE, 1.33 Normal (applies to [facility] THYROXINE ng/dL non-numeric (Ammir results) [place] Physician) TSH,3RD 2.47 Normal (applies to [facility] GENERATION uIU/mL non-numeric (Ammir results) [place] Physician) ID Date Data Source [id number] 11/02/2018 12:00:00 AM EDT [facility] (Ammir Wilmar Physician) Name Value Range Interpretation Description Data Sup porting Code Source(s) Document(s ) Ferritin 30.5 Normal (applies to [facility] (Amm ir [Interpretat ng/mL non-numeric Wilmar ion] in results) Physician) Blood ID Date Data Source [id number] 11/02/2018 12:00:00 AM EDT [facility] (Ammir Wilmar [...] results) [facility] Physician) ID Date Data Source [id number] 11/02/2018 12:00:00 AM EDT [facility] (Ammir Wilmar [...] results) Wilmar Physician) ID Date Data Source [id number] 11/02/2018 12:00:00 AM EDT [facility] (Ammir Wilmar Physician) Name Value Range Interpretation Description Data Sup porting Code Source(s) Document(s ) FOLATE SERUM 9.9 ng/mL Normal (applies to [facility] ( Ammir non-numeric Wilmar results) Physician) VITAMIN B12 523 pg/mL Normal (applies to [facility] (A mmir non-numeric Wilmar results) Physician) ID Date Data Source [id number] 11/02/2018 12:00:00 AM EDT [facility] (Ammir Wilmar Physician) Name Value Range Interpretation Description Data Sup porting Code Source(s) Document(s ) VITAMIN D 21.79 Below low normal [facility] (Ammir 25-HYDROXY ng/mL [place] Physician) ID Date Data Source [id number] 11/02/2018 12:00:00 AM EDT [facility] (Ammir Wilmar Physician) Name Value Range Interpretation Code Description Data Supporting Source(s) Document(s ) IRON, 108 ug/dL Normal (applies to [facility] (Amm ir TOTAL non-numeric Wilmar results) Physician) ID Date Data Source [id number] 11/02/2018 12:00:00 AM EDT [facility] (Ammir Wilmar [...] results) [facility] Physician) ID Date Data Source [id number] 11/02/2018 12:00:00 AM EDT [facility] (Ammir Wilmar [...] NON AFR 56 Below low normal [facility] ITALIAN mL/min/1 (Ammir .73m2 [place] Physician) EGFR AFR 67 Normal (applies [facility] ITALIAN mL/min/1 to non-numeric (Ammir .73m2 results) [place] Physician) ID Date Data Source [id number] 11/02/2018 12:00:00 AM EDT [facility] (Ammir Wilmar Physician) Name Value Range Interpretation Description Data Sup porting Code Source(s) Document(s ) T4 FREE, 1.33 Normal (applies to [facility] THYROXINE ng/dL non-numeric (Ammir results) [place] Physician) TSH,3RD 2.47 Normal (applies to [facility] GENERATION uIU/mL non-numeric (Ammir results) [place] Physician) ID Date Data Source [id number] 11/02/2018 12:00:00 AM EDT [facility] (Ammir Wilmar Physician) Name Value Range Interpretation Description Data Sup porting Code Source(s) Document(s ) Ferritin 30.5 Normal (applies to [facility] (Amm ir [Interpretat ng/mL non-numeric Wilmar ion] in results) Physician) Blood ID Date Data Source [id number] 11/02/2018 12:00:00 AM EDT [facility] (Ammir Wilmar [...] results) [facility] Physician) ID Date Data Source [id number] 11/02/2018 12:00:00 AM EDT [facility] (Ammir Wilmar [...] results) [facility] Physician) ID Date Data Source [id number] 11/02/2018 12:00:00 AM EDT [facility] (Ammir Wilmar Physician) Name Value Range Interpretation Description Data Sup porting Code Source(s) Document(s ) FOLATE SERUM 9.9 ng/mL Normal (applies to [facility] ( Ammir non-numeric Wilmar results) Physician) VITAMIN B12 523 pg/mL Normal (applies to [facility] (A mmir non-numeric Wilmar results) Physician) ID Date Data Source [id number] 11/02/2018 12:00:00 AM EDT [facility] (Ammir Wilmar Physician) Name Value Range Interpretation Description Data Sup porting Code Source(s) Document(s ) VITAMIN D 21.79 Below low normal [facility] (Ammir 25-HYDROXY ng/mL [place] Physician) ID Date Data Source [id number] 11/02/2018 12:00:00 AM EDT [facility] (Ammir Wilmar Physician) Name Value Range Interpretation Code Description Data Supporting Source(s) Document(s ) IRON, 108 ug/dL Normal (applies to [facility] (Amm ir TOTAL non-numeric Wilmar results) Physician) ID Date Data Source [id number] 11/02/2018 12:00:00 AM EDT [facility] (Ammir Wilmar [...] results) [place] Physician) ID Date Data Source [id number] 11/02/2018 12:00:00 AM EDT [facility] (Ammir Wilmar [...] NON AFR 56 Below low normal [facility] ITALIAN mL/min/1 (Ammir .73m2 [place] Physician) EGFR AFR 67 Normal (applies [facility] ITALIAN mL/min/1 to non-numeric (Ammir .73m2 results) [place] Physician) ID Date Data Source [id number] 11/02/2018 12:00:00 AM EDT [facility] (Ammir Wilmar Physician) Name Value Range Interpretation Description Data Sup porting Code Source(s) Document(s ) T4 FREE, 1.33 Normal (applies to [facility] THYROXINE ng/dL non-numeric (Ammir results) [place] Physician) TSH,3RD 2.47 Normal (applies to [facility] GENERATION uIU/mL non-numeric (Ammir results) [place] Physician) ID Date Data Source [id number] 11/02/2018 12:00:00 AM EDT [facility] (Ammir Wilmar Physician) Name Value Range Interpretation Description Data Sup porting Code Source(s) Document(s ) Ferritin 30.5 Normal (applies to [facility] (Amm ir [Interpretat ng/mL non-numeric Wilmar ion] in results) Physician) Blood ID Date Data Source [id number] 11/02/2018 12:00:00 AM EDT [facility] (Ammir Wilmar [...] results) [place] Physician) ID Date Data Source [id number] 11/02/2018 12:00:00 AM EDT [facility] (Ammir Wilmar [...] results) [place] Physician) ID Date Data Source [id number] 11/02/2018 12:00:00 AM EDT [facility] (Ammir Wilmar Physician) Name Value Range Interpretation Description Data Sup porting Code Source(s) Document(s ) FOLATE SERUM 9.9 ng/mL Normal (applies to [facility] ( Ammir non-numeric [place] results) Physician) VITAMIN B12 523 pg/mL Normal (applies to [facility] (A mmir non-numeric [place]mar results) Physician) ID Date Data Source [id number] 11/02/2018 12:00:00 AM EDT [facility] (Ammir Wil[facility] Physician) Name Value Range Interpretation Description Data Sup porting Code Source(s) Document(s ) VITAMIN D 21.79 Below low normal [facility] (Ammir 25-HYDROXY ng/mL [place] Physician) ID Date Data Source [id number] 11/02/2018 12:00:00 AM EDT [facility] (Ammir Wilmar Physician) Name Value Range Interpretation Code Description Data Supporting Source(s) Document(s ) IRON, 108 ug/dL Normal (applies to [facility] (Amm ir TOTAL non-numeric Wilmar results) Physician) ID Date Data Source [id number] 11/02/2018 12:00:00 AM EDT [facility] (Ammir Wilmar [...] results) [place] Physician) ID Date Data Source [id number] 11/02/2018 12:00:00 AM EDT [facility] (Ammir Wilmar [...] NON AFR 56 Below low normal [facility] ITALIAN mL/min/1 (Ammir .73m2 [place] Physician) EGFR AFR 67 Normal (applies [facility] ITALIAN mL/min/1 to non-numeric (Ammir .73m2 results) [place] Physician) ID Date Data Source [id number] 11/02/2018 12:00:00 AM EDT [facility] (Ammir Wil[facility] Physician) Name Value Range Interpretation Description Data Sup porting Code Source(s) Document(s ) T4 FREE, 1.33 Normal (applies to [facility] THYROXINE ng/dL non-numeric (Ammir results) [place] Physician) TSH,3RD 2.47 Normal (applies to [facility] GENERATION uIU/mL non-numeric (Ammir results) [place] Physician) ID Date Data Source [id number] 11/02/2018 12:00:00 AM EDT [facility] (Ammir Wilmar Physician) Name Value Range Interpretation Description Data Sup porting Code Source(s) Document(s ) Ferritin 30.5 Normal (applies to [facility] (Amm ir [Interpretat ng/mL non-numeric Wilmar ion] in results) Physician) Blood ID Date Data Source [id number] 11/02/2018 12:00:00 AM EDT [facility] (Ammir Wilmar [...] results) [place] Physician) ID Date Data Source [id number] 11/02/2018 12:00:00 AM EDT [facility] (Ammir Wilmar [...] results) [place] Physician) ID Date Data Source [id number] 11/02/2018 12:00:00 AM EDT [facility] (Ammir Wilmar Physician) Name Value Range Interpretation Description Data Sup porting Code Source(s) Document(s ) FOLATE SERUM 9.9 ng/mL Normal (applies to [facility] ( Ammir non-numeric [place]mar results) Physician) VITAMIN B12 523 pg/mL Normal (applies to [facility] (A mmir non-numeric [place]mar results) Physician) ID Date Data Source [id number] 11/02/2018 12:00:00 AM EDT [facility] (Ammir Wilmar Physician) Name Value Range Interpretation Description Data Sup porting Code Source(s) Document(s ) VITAMIN D 21.79 Below low normal [facility] (Ammir 25-HYDROXY ng/mL [place] Physician) ID Date Data Source [id number] 11/02/2018 12:00:00 AM EDT [facility] (Ammir Wilmar Physician) Name Value Range Interpretation Code Description Data Supporting Source(s) Document(s ) IRON, 108 ug/dL Normal (applies to [facility] (Amm ir TOTAL non-numeric [place]mar results) Physician) ID Date Data Source [id number] 07/28/2018 12:00:00 AM EDT [facility] (Ammir Wilmar [...] (applies [facility] g/dl to non-numeric (Ammir results) Wilmra Physician) BILIRUBIN, TOTAL 1.5 Above high normal [facility] N mg/dL (Ammir Wilmar Physician) ALKALINE 86 U/L Normal (applies [facility] PHOSPHATASE, ALP to non-numeric (Ammir results) Wilmar Physician) ALT (SGPT) 17 U/L Normal (applies [facility] to non-numeric (Ammir results) Wilmar Physician) AST 26 U/L Normal (applies [facility] to non-numeric (Ammir results) Wilmar Physician) EGFR NON AFR 56 Above high normal [facility] ITALIAN mL/min/1 (Ammir .73m2 Wilmar Physician) EGFR AFR 67 Above high normal [facility] ITALIAN mL/min/1 (Ammir .73m2 Wilmar Physician) ID Date Data Source [id number] 07/28/2018 12:00:00 AM EDT [facility] (Ammir Wilmar Physician) Name Value Range Interpretation Description Data Sup porting Code Source(s) Document(s ) Ferritin 37.4 Normal (applies to [facility] (Amm ir [Interpretat ng/mL non-numeric Wilmar ion] in results) Physician) Blood ID Date Data Source [id number] 07/28/2018 12:00:00 AM EDT [facility] (Ammir Wilmar [...] results) Wilmar Physician) ID Date Data Source [id number] 07/28/2018 12:00:00 AM EDT [facility] (Ammir Wilmar [...] results) Wilmar Physician) ID Date Data Source [id number] 07/28/2018 12:00:00 AM EDT [facility] (Ammir Wilmar Physician) Name Value Range Interpretation Code Description Data Supporting Source(s) Document(s ) IRON, 126 ug/dL Normal (applies to [facility] (Amm ir TOTAL non-numeric Wilmar results) Physician) ID Date Data Source [id number] 07/28/2018 12:00:00 AM EDT [facility] (Ammir Wilmar [...] [facility] PHOSPHATASE, ALP to non-numeric (Ammir results) Iwlmar Physician) ALT (SGPT) 17 U/L Normal (applies [facility] to non-numeric (Ammir results) [place] Physician) AST 26 U/L Normal (applies [facility] to non-numeric (Ammir results) Wilmar Physician) EGFR NON AFR 56 Above high normal [facility] ITALIAN mL/min/1 (Ammir .73m2 [facility] Physician) EGFR AFR 67 Above high normal [facility] ITALIAN mL/min/1 (Ammir .73m2 Wilmar Physician) ID Date Data Source [id number] 07/28/2018 12:00:00 AM EDT [facility] (Ammir Wilmar Physician) Name Value Range Interpretation Description Data Sup porting Code Source(s) Document(s ) Ferritin 37.4 Normal (applies to [facility] (Amm ir [Interpretat ng/mL non-numeric Wilmar ion] in results) Physician) Blood ID Date Data Source [id number] 07/28/2018 12:00:00 AM EDT [facility] (Ammir Wilmar [...] results) Wilmar Physician) ID Date Data Source [id number] 07/28/2018 12:00:00 AM EDT [facility] (Ammir Wilmar [...] results) Wilmar Physician) ID Date Data Source [id number] 07/28/2018 12:00:00 AM EDT [facility] (Ammir Wilmar Physician) Name Value Range Interpretation Code Description Data Supporting Source(s) Document(s ) IRON, 126 ug/dL Normal (applies to [facility] (Amm ir TOTAL non-numeric Wilmar results) Physician) ID Date Data Source [id number] 07/28/2018 12:00:00 AM EDT [facility] (Ammir Wilmar [...] NON AFR 56 Above high normal [facility] ITALIAN mL/min/1 (Ammir .73m2 Wilmar Physician) EGFR AFR 67 Above high normal [facility] ITALIAN mL/min/1 (Ammir .73m2 Wilmar Physician) ID Date Data Source [id number] 07/28/2018 12:00:00 AM EDT [facility] (Ammir Wilmar Physician) Name Value Range Interpretation Description Data Sup porting Code Source(s) Document(s ) Ferritin 37.4 Normal (applies to [facility] (Amm ir [Interpretat ng/mL non-numeric Wilmar ion] in results) Physician) Blood ID Date Data Source [id number] 07/28/2018 12:00:00 AM EDT [facility] (Ammir Wilmar [...] results) Wilmar Physician) ID Date Data Source [id number] 07/28/2018 12:00:00 AM EDT [facility] (Ammir Wilmar [...] results) Wilmar Physician) ID Date Data Source [id number] 07/28/2018 12:00:00 AM EDT [facility] (Ammir Wilmar Physician) Name Value Range Interpretation Code Description Data Supporting Source(s) Document(s ) IRON, 126 ug/dL Normal (applies to [facility] (Amm ir TOTAL non-numeric Wilmar results) Physician) ID Date Data Source [id number] 07/28/2018 12:00:00 AM EDT [facility] (Ammir Wilmar [...] NON AFR 56 Above high normal [facility] ITALIAN mL/min/1 (Ammir .73m2 Wilmar Physician) EGFR AFR 67 Above high normal [facility] ITALIAN mL/min/1 (Ammir .73m2 Wilmar Physician) ID Date Data Source [id number] 07/28/2018 12:00:00 AM EDT [facility] (Ammir Wilmar Physician) Name Value Range Interpretation Description Data Sup porting Code Source(s) Document(s ) Ferritin 37.4 Normal (applies to [facility] (Amm ir [Interpretat ng/mL non-numeric Wilmar ion] in results) Physician) Blood ID Date Data Source [id number] 07/28/2018 12:00:00 AM EDT [facility] (Ammir Wilmar [...] results) Wilmar Physician) ID Date Data Source [id number] 07/28/2018 12:00:00 AM EDT [facility] (Ammir Wilmar [...] results) Wilmar Physician) ID Date Data Source [id number] 07/28/2018 12:00:00 AM EDT [facility] (Ammir Wilmar Physician) Name Value Range Interpretation Code Description Data Supporting Source(s) Document(s ) IRON, 126 ug/dL Normal (applies to [facility] (Amm ir TOTAL non-numeric Wilmar results) Physician) ID Date Data Source [id number] 06/27/2018 12:00:00 AM EDT [facility] (Ammir Wilmar Physician) Name Value Range Interpretation Description Data Sup porting Code Source(s) Document(s ) CRP, HIGH 225.89 Above high normal [facility] SENSITIVITY mg/L (Ammir Wilmar Physician) ID Date Data Source [id number] 06/27/2018 12:00:00 AM EDT [facility] (Ammir Wilmar Physician) Name Value Range Interpretation Code Description Data Ning rce(s) Supporting Document(s ) ESR 49 mm/hr Above high normal [facility] (Ammi r Wilmar Physician) ID Date Data Source [id number] 06/27/2018 12:00:00 AM EDT [facility] (Ammir Wilmra Physician) [...] NON AFR 56 Above high normal [facility] ITALIAN mL/min/1 (Ammir .73m2 Wilmar Physician) EGFR AFR 68 Above high normal [facility] ITALIAN mL/min/1 (Ammir .73m2 Wilmar Physician) ID Date Data Source [id number] 06/27/2018 12:00:00 AM EDT [facility] (Ammir Wilmar [...] (Ammir Wilmar Physician) ID Date Data Source [id number] 06/27/2018 12:00:00 AM EDT [facility] (Ammir Wilmar Physician) Name Value Range Interpretation Description Data Sup porting Code Source(s) Document(s ) CRP, HIGH 225.89 Above high normal [facility] SENSITIVITY mg/L (Ammir Wilmar Physician) ID Date Data Source [id number] 06/27/2018 12:00:00 AM EDT [facility] (Ammir Wilmar Physician) Name Value Range Interpretation Code Description Data Ning rce(s) Supporting Document(s ) ESR 49 mm/hr Above high normal [facility] (Ammi r Wilmar Physician) ID Date Data Source [id number] 06/27/2018 12:00:00 AM EDT [facility] (Ammir Wilmar [...] Above high normal [facility] SERUM mg/dL (Ammir Iwlmar Physician) BUN/CREATININE 14.00 Normal (applies [facility] RATIO [...] NON AFR 56 Above high normal [facility] ITALIAN mL/min/1 (Ammir .73m2 Wilmar Physician) EGFR AFR 68 Above high normal [facility] ITALIAN mL/min/1 (Ammir .73m2 Wilmar Physician) ID Date Data Source [id number] 06/27/2018 12:00:00 AM EDT [facility] (Ammir Wilmar [...] (Ammir Wilmar Physician) ID Date Data Source [id number] 06/27/2018 12:00:00 AM EDT [facility] (Ammir Wilmar Physician) Name Value Range Interpretation Description Data Sup porting Code Source(s) Document(s ) CRP, HIGH 225.89 Above high normal [facility] SENSITIVITY mg/L (Ammir Wilmar Physician) ID Date Data Source [id number] 06/27/2018 12:00:00 AM EDT [facility] (Ammir Wilmar Physician) Name Value Range Interpretation Code Description Data Ning rce(s) Supporting Document(s ) ESR 49 mm/hr Above high normal [facility] (Ammi r Wilmar Physician) ID Date Data Source [id number] 06/27/2018 12:00:00 AM EDT [facility] (Ammir Wilmar [...] NON AFR 56 Above high normal [facility] ITALIAN mL/min/1 (Ammir .73m2 Wilmar Physician) EGFR AFR 68 Above high normal [facility] ITALIAN mL/min/1 (Ammir .73m2 Wilmar Physician) ID Date Data Source [id number] 06/27/2018 12:00:00 AM EDT [facility] (Ammir Wilmar Physician) Name Value Range Interpretation Description Data Sup porting Code Source(s) Document(s ) CRP, HIGH 225.89 Above high normal [facility] SENSITIVITY mg/L (Ammir Wilmar Physician) ID Date Data Source [id number] 06/27/2018 12:00:00 AM EDT [facility] (Ammir Wilmar Physician) Name Value Range Interpretation Code Description Data Ning rce(s) Supporting Document(s ) ESR 49 mm/hr Above high normal [facility] (Ammi r Wilmar Physician) ID Date Data Source [id number] 06/27/2018 12:00:00 AM EDT [facility] (Ammir Wilmar [...] NON AFR 56 Above high normal [facility] ITALIAN mL/min/1 (Ammir .73m2 Wilmar Physician) EGFR AFR 68 Above high normal [facility] ITALIAN mL/min/1 (Ammir .73m2 Wilmar Physician) ID Date Data Source [id number] 06/27/2018 12:00:00 AM EDT [facility] (Ammir Wilmar [...] (Ammir Wilmar Physician) ID Date Data Source [id number] 06/27/2018 12:00:00 AM EDT [facility] (Ammir Wilmar [...] Above high normal [facility] Granulocyte % (Ammir Wilamr Physician) ID Date Data Source [id number] 06/15/2018 12:00:00 AM EDT [facility] (Ammir Wilmar Physician) Name Value Range Interpretation Description Data Sup porting Code Source(s) Document(s ) T4 FREE, 1.49 Normal (applies to [facility] THYROXINE ng/dL non-numeric (Ammir results) Wilmar Physician) TSH,3RD 2.21 Normal (applies to [facility] GENERATION uIU/mL non-numeric (Ammir results) Wilmar Physician) ID Date Data Source [id number] 06/15/2018 12:00:00 AM EDT [facility] (Ammir Wilmar Physician) Name Value Range Interpretation Description Data Sup porting Code Source(s) Document(s ) Ferritin 21.6 Normal (applies to [facility] (Amm ir [Interpretat ng/mL non-numeric Wilmar ion] in results) Physician) Blood ID Date Data Source [id number] 06/15/2018 12:00:00 AM EDT [facility] (Ammir Wilmar [...] results) Wilmar Physician) ID Date Data Source [id number] 06/15/2018 12:00:00 AM EDT [facility] (Ammir Wilmar Physician) Name Value Range Interpretation Description Data Sup porting Code Source(s) Document(s ) FOLATE SERUM 12 ng/mL Above high normal [facility] (A mmir Wilmar Physician) VITAMIN B12 430 pg/mL Normal (applies to [facility] (A mmir non-numeric Wilmar results) Physician) ID Date Data Source [id number] 06/15/2018 12:00:00 AM EDT [facility] (Ammir Wilmar Physician) Name Value Range Interpretation Description Data Sup porting Code Source(s) Document(s ) VITAMIN D 27.52 Below low normal [facility] (Ammir 25-HYDROXY ng/mL Wil[facility] Physician) ID Date Data Source [id number] 06/15/2018 12:00:00 AM EDT [facility] (Ammir Wilmar [...] results) Wilmar Physician) ID Date Data Source [id number] 06/15/2018 12:00:00 AM EDT [facility] (Ammir Wilmar Physician) Name Value Range Interpretation Code Description Data Ning rce(s) Supporting Document(s ) IRON, 82 ug/dL Normal (applies to [facility] (Amm ir TOTAL non-numeric Wilmar results) Physician) ID Date Data Source [id number] 06/15/2018 12:00:00 AM EDT [facility] (Ammir Wilmar [...] NON AFR 63 Above high normal [facility] ITALIAN mL/min/1 (Ammir .73m2 Wil[place] Physician) EGFR AFR 76 Above high normal [facility] ITALIAN mL/min/1 (Ammir .73m2 [facility] Physician) ID Date Data Source [id number] 06/15/2018 12:00:00 AM EDT [facility] (Ammir Wilmar [...] results) Wilmar Physician) ID Date Data Source [id number] 06/15/2018 12:00:00 AM EDT [facility] (Ammir Wilmar Physician) Name Value Range Interpretation Description Data Sup porting Code Source(s) Document(s ) T4 FREE, 1.49 Normal (applies to [facility] THYROXINE ng/dL non-numeric (Ammir results) Wilmar Physician) TSH,3RD 2.21 Normal (applies to [facility] GENERATION uIU/mL non-numeric (Ammir results) Wilmar Physician) ID Date Data Source [id number] 06/15/2018 12:00:00 AM EDT [facility] (Ammir Wilmar Physician) Name Value Range Interpretation Description Data Sup porting Code Source(s) Document(s ) Ferritin 21.6 Normal (applies to [facility] (Amm ir [Interpretat ng/mL non-numeric Wilmar ion] in results) Physician) Blood ID Date Data Source [id number] 06/15/2018 12:00:00 AM EDT [facility] (Ammir Wilmar [...] results) Wilmar Physician) ID Date Data Source [id number] 06/15/2018 12:00:00 AM EDT [facility] (Ammir Wilmar Physician) Name Value Range Interpretation Description Data Sup porting Code Source(s) Document(s ) FOLATE SERUM 12 ng/mL Above high normal [facility] (A mmir Wilmar Physician) VITAMIN B12 430 pg/mL Normal (applies to [facility] (A mmir non-numeric Wilmar results) Physician) ID Date Data Source [id number] 06/15/2018 12:00:00 AM EDT [facility] (Ammir Wilmar Physician) Name Value Range Interpretation Description Data Sup porting Code Source(s) Document(s ) VITAMIN D 27.52 Below low normal [facility] (Ammir 25-HYDROXY ng/mL Wil[facility] Physician) ID Date Data Source [id number] 06/15/2018 12:00:00 AM EDT [facility] (Ammir Wilmar [...] results) Wilmar Physician) ID Date Data Source [id number] 06/15/2018 12:00:00 AM EDT [facility] (Ammir Wilmar Physician) Name Value Range Interpretation Code Description Data Ning rce(s) Supporting Document(s ) IRON, 82 ug/dL Normal (applies to [facility] (Amm ir TOTAL non-numeric Wilmar results) Physician) ID Date Data Source [id number] 06/15/2018 12:00:00 AM EDT [facility] (Ammir Wilmar [...] NON AFR 63 Above high normal [facility] ITALIAN mL/min/1 (Ammir .73m2 Wilmar Physician) EGFR AFR 76 Above high normal [facility] ITALIAN mL/min/1 (Ammir .73m2 Wil[facility] Physician) ID Date Data Source [id number] 06/15/2018 12:00:00 AM EDT [facility] (Ammir Wilmar [...] results) Wilmar Physician) ID Date Data Source [id number] 06/15/2018 12:00:00 AM EDT [facility] (Ammir Wilmar Physician) Name Value Range Interpretation Description Data Sup porting Code Source(s) Document(s ) T4 FREE, 1.49 Normal (applies to [facility] THYROXINE ng/dL non-numeric (Ammir results) Wilmar Physician) TSH,3RD 2.21 Normal (applies to [facility] GENERATION uIU/mL non-numeric (Ammir results) Wilmar Physician) ID Date Data Source [id number] 06/15/2018 12:00:00 AM EDT [facility] (Ammir Wilmar Physician) Name Value Range Interpretation Description Data Sup porting Code Source(s) Document(s ) Ferritin 21.6 Normal (applies to [facility] (Amm ir [Interpretat ng/mL non-numeric Wilmar ion] in results) Physician) Blood ID Date Data Source [id number] 06/15/2018 12:00:00 AM EDT [facility] (Ammir Wilamr [...] results) Wilmar Physician) ID Date Data Source [id number] 06/15/2018 12:00:00 AM EDT [facility] (Ammir Wilmar Physician) Name Value Range Interpretation Description Data Sup porting Code Source(s) Document(s ) FOLATE SERUM 12 ng/mL Above high normal [facility] (A mmir Wilmar Physician) VITAMIN B12 430 pg/mL Normal (applies to [facility] (A mmir non-numeric Wilmar results) Physician) ID Date Data Source [id number] 06/15/2018 12:00:00 AM EDT [facility] (Ammir Wilmar Physician) Name Value Range Interpretation Description Data Sup porting Code Source(s) Document(s ) VITAMIN D 27.52 Below low normal [facility] (Ammir 25-HYDROXY ng/mL [facility] Physician) ID Date Data Source [id number] 06/15/2018 12:00:00 AM EDT [facility] (Ammir Wilmar [...] results) Wilmar Physician) ID Date Data Source [id number] 06/15/2018 12:00:00 AM EDT [facility] (Ammir Wilmar Physician) Name Value Range Interpretation Code Description Data Ning rce(s) Supporting Document(s ) IRON, 82 ug/dL Normal (applies to [facility] (Amm ir TOTAL non-numeric Wilmar results) Physician) ID Date Data Source [id number] 06/15/2018 12:00:00 AM EDT [facility] (Ammir Wilmar [...] NON AFR 63 Above high normal [facility] ITALIAN mL/min/1 (Ammir .73m2 [facility] Physician) EGFR AFR 76 Above high normal [facility] ITALIAN mL/min/1 (Ammir .73m2 [facility] Physician) ID Date Data Source [id number] 06/15/2018 12:00:00 AM EDT [facility] (Ammir Wilmar [...] results) Wilmar Physician) ID Date Data Source [id number] 06/15/2018 12:00:00 AM EDT [facility] (Ammir Wilmar Physician) Name Value Range Interpretation Description Data Sup porting Code Source(s) Document(s ) T4 FREE, 1.49 Normal (applies to [facility] THYROXINE ng/dL non-numeric (Ammir results) Wilmar Physician) TSH,3RD 2.21 Normal (applies to [facility] GENERATION uIU/mL non-numeric (Ammir results) Wil[place] Physician) ID Date Data Source [id number] 06/15/2018 12:00:00 AM EDT [facility] (Ammir Wilmar Physician) Name Value Range Interpretation Description Data Sup porting Code Source(s) Document(s ) Ferritin 21.6 Normal (applies to [facility] (Amm ir [Interpretat ng/mL non-numeric Wilmar ion] in results) Physician) Blood ID Date Data Source [id number] 06/15/2018 12:00:00 AM EDT [facility] (Ammir Wilmar [...] results) Wil[facility] Physician) ID Date Data Source [id number] 06/15/2018 12:00:00 AM EDT [facility] (Ammir Wilmar Physician) Name Value Range Interpretation Description Data Sup porting Code Source(s) Document(s ) FOLATE SERUM 12 ng/mL Above high normal [facility] (A mmir Wilmar Physician) VITAMIN B12 430 pg/mL Normal (applies to [facility] (A mmir non-numeric Wilmar results) Physician) ID Date Data Source [id number] 06/15/2018 12:00:00 AM EDT [facility] (Ammir Wilmar Physician) Name Value Range Interpretation Description Data Sup porting Code Source(s) Document(s ) VITAMIN D 27.52 Below low normal [facility] (Ammir 25-HYDROXY ng/mL [facility] Physician) ID Date Data Source [id number] 06/15/2018 12:00:00 AM EDT [facility] (Ammir Wilmar [...] results) Wilmar Physician) ID Date Data Source [id number] 06/15/2018 12:00:00 AM EDT [facility] (Ammir Wilmar Physician) Name Value Range Interpretation Code Description Data Ning rce(s) Supporting Document(s ) IRON, 82 ug/dL Normal (applies to [facility] (Amm ir TOTAL non-numeric Wilmar results) Physician) ID Date Data Source [id number] 06/15/2018 12:00:00 AM EDT [facility] (Ammir Wilmar [...] Normal (applies [facility] to non-numeric (Ammir results) Wilmra Physician) AST 23 U/L Normal (applies [facility] to non-numeric (Ammir results) Wilmar Physician) EGFR NON AFR 63 Above high normal [facility] ITALIAN mL/min/1 (Ammir .73m2 [facility] Physician) EGFR AFR 76 Above high normal [facility] ITALIAN mL/min/1 (Ammir .73m2 [facility] Physician) ID Date Data Source [id number] 06/15/2018 12:00:00 AM EDT [facility] (Ammir Wilmar [...] [facility] to non-numeric (Ammir results) Iwlmar Physician) MCHC 34 g/dL Normal (applies [facility] to non-numeric (Ammir results) [place] Physician) RDWSD 43.6 fL Normal (applies [facility] [...] results) Wilmar Physician) ID Date Data Source [id number] 03/24/2018 12:00:00 AM EST [facility] (Ammir Wilmar [...] NON AFR 63 Above high normal [facility] ITALIAN mL/min/1 (Ammir .73m2 Wil[facility] Physician) EGFR AFR 76 Above high normal [facility] ITALIAN mL/min/1 (Ammir .73m2 [facility] Physician) ID Date Data Source [id number] 03/24/2018 12:00:00 AM EST [facility] (Ammir Wilmar Physician) Name Value Range Interpretation Description Data Sup porting Code Source(s) Document(s ) Ferritin 34 ng/mL Normal (applies to [facility] (Amm ir [Interpretat non-numeric Wilmar ion] in results) Physician) Blood ID Date Data Source [id number] 03/24/2018 12:00:00 AM EST [facility] (Ammir Wilmar [...] results) Wilmar Physician) ID Date Data Source [id number] 03/24/2018 12:00:00 AM EST [facility] (Ammir Wilmar [...] results) Wilmar Physician) ID Date Data Source [id number] 03/24/2018 12:00:00 AM EST [facility] (Ammir Wilmar [...] Above high normal [facility] N mg/dL (Ammir Wilmra Physician) ALKALINE 77 U/L Normal (applies [facility] PHOSPHATASE, ALP to non-numeric (Ammir results) Wilmar Physician) ALT (SGPT) 5 U/L Below low normal [facility] (Ammir Wilmar Physician) AST 18 U/L Normal (applies [facility] to non-numeric (Ammir results) Wil[place] Physician) EGFR NON AFR 63 Above high normal [facility] ITALIAN mL/min/1 (Ammir .73m2 [facility] Physician) EGFR AFR 76 Above high normal [facility] ITALIAN mL/min/1 (Ammir .73m2 [facility] Physician) ID Date Data Source [id number] 03/24/2018 12:00:00 AM EST [facility] (Ammir Wilmar Physician) Name Value Range Interpretation Description Data Sup porting Code Source(s) Document(s ) Ferritin 34 ng/mL Normal (applies to [facility] (Amm ir [Interpretat non-numeric Wilmar ion] in results) Physician) Blood ID Date Data Source [id number] 03/24/2018 12:00:00 AM EST [facility] (Ammir Wilmar [...] results) Wilmar Physician) ID Date Data Source [id number] 03/24/2018 12:00:00 AM EST [facility] (Ammir Wilmar [...] results) Wilmar Physician) ID Date Data Source [id number] 03/24/2018 12:00:00 AM EST [facility] (Ammir Wilmar [...] NON AFR 63 Above high normal [facility] ITALIAN mL/min/1 (Ammir .73m2 [facility] Physician) EGFR AFR 76 Above high normal [facility] ITALIAN mL/min/1 (Ammir .73m2 [facility] Physician) ID Date Data Source [id number] 03/24/2018 12:00:00 AM EST [facility] (Ammir Wilmar Physician) Name Value Range Interpretation Description Data Sup porting Code Source(s) Document(s ) Ferritin 34 ng/mL Normal (applies to [facility] (Amm ir [Interpretat non-numeric Wilmar ion] in results) Physician) Blood ID Date Data Source [id number] 03/24/2018 12:00:00 AM EST [facility] (Ammir Wilmar [...] results) Wilmar Physician) ID Date Data Source [id number] 03/24/2018 12:00:00 AM EST [facility] (Ammir Wilmar [...] results) Wilmar Physician) ID Date Data Source [id number] 03/24/2018 12:00:00 AM EST [facility] (Ammir Wilmar [...] NON AFR 63 Above high normal [facility] ITALIAN mL/min/1 (Ammir .73m2 [facility] Physician) EGFR AFR 76 Above high normal [facility] ITALIAN mL/min/1 (Ammir .73m2 [place] Physician) ID Date Data Source [id number] 03/24/2018 12:00:00 AM EST [facility] (Ammir Wilmar Physician) Name Value Range Interpretation Description Data Sup porting Code Source(s) Document(s ) Ferritin 34 ng/mL Normal (applies to [facility] (Amm ir [Interpretat non-numeric Wilmar ion] in results) Physician) Blood ID Date Data Source [id number] 03/24/2018 12:00:00 AM EST [facility] (Ammir Wilmar [...] results) Wilmar Physician) ID Date Data Source [id number] 03/24/2018 12:00:00 AM EST [facility] (Ammir Wilmar [...] Normal (applies [facility] to non-numeric (Ammir results) Wilmra Physician) ID Date Data Source [id number] 12/09/2017 12:00:00 AM EDT [facility] (Ammir Wilmar [...] NON AFR 72 Above high normal [facility] ITALIAN mL/min/1 (Ammir .73m2 [place] Physician) EGFR AFR 87 Above high normal [facility] ITALIAN mL/min/1 (Ammir .73m2 [place] Physician) ID Date Data Source [id number] 12/09/2017 12:00:00 AM EDT [facility] (Ammir Wilmar Physician) Name Value Range Interpretation Description Data Sup porting Code Source(s) Document(s ) Ferritin 75.2 Normal (applies to [facility] (Amm ir [Interpretat ng/mL non-numeric Wilmar ion] in results) Physician) Blood ID Date Data Source [id number] 12/09/2017 12:00:00 AM EDT [facility] (Ammir Wilmar [...] results) Wilmar Physician) ID Date Data Source [id number] 12/09/2017 12:00:00 AM EDT [facility] (Ammir Wilmar [...] results) Wilmar Physician) ID Date Data Source [id number] 12/09/2017 12:00:00 AM EDT [facility] (Ammir Wilmar [...] NON AFR 72 Above high normal [facility] ITALIAN mL/min/1 (Ammir .73m2 [facility] Physician) EGFR AFR 87 Above high normal [facility] ITALIAN mL/min/1 (Ammir .73m2 [facility] Physician) ID Date Data Source [id number] 12/09/2017 12:00:00 AM EDT [facility] (Ammir Wilmar Physician) Name Value Range Interpretation Description Data Sup porting Code Source(s) Document(s ) Ferritin 75.2 Normal (applies to [facility] (Amm ir [Interpretat ng/mL non-numeric Wilmar ion] in results) Physician) Blood ID Date Data Source [id number] 12/09/2017 12:00:00 AM EDT [facility] (Ammir Wilmar [...] results) Wilmar Physician) ID Date Data Source [id number] 12/09/2017 12:00:00 AM EDT [facility] (Ammir Wilmar [...] results) Wilmar Physician) ID Date Data Source [id number] 12/09/2017 12:00:00 AM EDT [facility] (Ammir Wilmar [...] NON AFR 72 Above high normal [facility] ITALIAN mL/min/1 (Ammir .73m2 [facility] Physician) EGFR AFR 87 Above high normal [facility] ITALIAN mL/min/1 (Ammir .73m2 [facility] Physician) ID Date Data Source [id number] 12/09/2017 12:00:00 AM EDT [facility] (Ammir Wilmar Physician) Name Value Range Interpretation Description Data Sup porting Code Source(s) Document(s ) Ferritin 75.2 Normal (applies to [facility] (Amm ir [Interpretat ng/mL non-numeric Wilmar ion] in results) Physician) Blood ID Date Data Source [id number] 12/09/2017 12:00:00 AM EDT [facility] (Ammir Wilmar [...] results) Wilmar Physician) ID Date Data Source [id number] 12/09/2017 12:00:00 AM EDT [facility] (Ammir Wilmar [...] results) Wilmar Physician) ID Date Data Source [id number] 12/09/2017 12:00:00 AM EDT [facility] (Ammir Wilmar [...] NON AFR 72 Above high normal [facility] ITALIAN mL/min/1 (Ammir .73m2 Wil[facility] Physician) EGFR AFR 87 Above high normal [facility] ITALIAN mL/min/1 (Ammir .73m2 [facility] Physician) ID Date Data Source [id number] 12/09/2017 12:00:00 AM EDT [facility] (Ammir Wilmar Physician) Name Value Range Interpretation Description Data Sup porting Code Source(s) Document(s ) Ferritin 75.2 Normal (applies to [facility] (Amm ir [Interpretat ng/mL non-numeric Wilmar ion] in results) Physician) Blood ID Date Data Source [id number] 12/09/2017 12:00:00 AM EDT [facility] (Ammir Wilmar [...] results) Wilmar Physician) ID Date Data Source [id number] 12/09/2017 12:00:00 AM EDT [facility] (Ammir Wilmar [...] results) Wilmar Physician) ID Date Data Source [id number] 10/05/2017 12:00:00 AM EDT [facility] (Ammir Wilmar [...] NON AFR 72 Above high normal [facility] ITALIAN mL/min/1 (Ammir .73m2 Wilmar Physician) EGFR AFR 87 Above high normal [facility] ITALIAN mL/min/1 (Ammir .73m2 Wilmar Physician) ID Date Data Source [id number] 10/05/2017 12:00:00 AM EDT [facility] (Ammir Wilmar [...] results) Wilmar Physician) ID Date Data Source [id number] 10/05/2017 12:00:00 AM EDT [facility] (Ammir Wilmar Physician) Name Value Range Interpretation Code Description Data Ning rce(s) Supporting Document(s ) APTT 34.70 sec Normal (applies to [facility] (Amm ir non-numeric results) [place] Physician) ID Date Data Source [id number] 10/05/2017 12:00:00 AM EDT [facility] (Ammir [place] Physician) Name Value Range Interpretation Description Data Sup porting Code Source(s) Document(s ) PROTHROMBIN 19.5 sec Above high normal [facility] TIME, PT (Ammir [place] Physician) INR 1.56 Above high normal [facility] (Ammir [place] Physician) ID Date Data Source [id number] 10/05/2017 12:00:00 AM EDT [facility] (Ammir [place] [...] NON AFR 72 Above high normal [facility] ITALIAN mL/min/1 (Ammir .73m2 [place] Physician) EGFR AFR 87 Above high normal [facility] ITALIAN mL/min/1 (Ammir .73m2 [place] Physician) ID Date Data Source [id number] 10/05/2017 12:00:00 AM EDT [facility] (Ammir [place]mar [...] results) [place] Physician) ID Date Data Source [id number] 10/05/2017 12:00:00 AM EDT [facility] (Ammir [place] Physician) Name Value Range Interpretation Code Description Data Ning rce(s) Supporting Document(s ) APTT 34.70 sec Normal (applies to [facility] (Amm ir non-numeric results) [place] Physician) ID Date Data Source [id number] 10/05/2017 12:00:00 AM EDT [facility] (Ammir [place] Physician) Name Value Range Interpretation Description Data Sup porting Code Source(s) Document(s ) PROTHROMBIN 19.5 sec Above high normal [facility] TIME, PT (Ammir [place] Physician) INR 1.56 Above high normal [facility] (Ammir [place] Physician) ID Date Data Source [id number] 10/05/2017 12:00:00 AM EDT [facility] (Ammir [place] [...] NON AFR 72 Above high normal [facility] ITALIAN mL/min/1 (Ammir .73m2 [place] Physician) EGFR AFR 87 Above high normal [facility] ITALIAN mL/min/1 (Ammir .73m2 [place] Physician) ID Date Data Source [id number] 10/05/2017 12:00:00 AM EDT [facility] (Ammir Wilmar [...] results) [place] Physician) ID Date Data Source [id number] 10/05/2017 12:00:00 AM EDT [facility] (Ammir [place] Physician) Name Value Range Interpretation Code Description Data Ning rce(s) Supporting Document(s ) APTT 34.70 sec Normal (applies to [facility] (Amm ir non-numeric results) [place] Physician) ID Date Data Source [id number] 10/05/2017 12:00:00 AM EDT [facility] (Ammir [place] Physician) Name Value Range Interpretation Description Data Sup porting Code Source(s) Document(s ) PROTHROMBIN 19.5 sec Above high normal [facility] TIME, PT (Ammir [place] Physician) INR 1.56 Above high normal [facility] (Ammir [place] Physician) ID Date Data Source [id number] 10/05/2017 12:00:00 AM EDT [facility] (Ammir [place] [...] NON AFR 72 Above high normal [facility] ITALIAN mL/min/1 (Ammir .73m2 [place] Physician) EGFR AFR 87 Above high normal [facility] ITALIAN mL/min/1 (Ammir .73m2 [place] Physician) ID Date Data Source [id number] 10/05/2017 12:00:00 AM EDT [facility] (Ammir [place] [...] results) [place] Physician) ID Date Data Source [id number] 10/05/2017 12:00:00 AM EDT [facility] (Ammir [place] Physician) Name Value Range Interpretation Code Description Data Ning rce(s) Supporting Document(s ) APTT 34.70 sec Normal (applies to [facility] (Amm ir non-numeric results) [place] Physician) ID Date Data Source [id number] 10/05/2017 12:00:00 AM EDT [facility] (Ammir [place] Physician) Name Value Range Interpretation Description Data Sup porting Code Source(s) Document(s ) PROTHROMBIN 19.5 sec Above high normal [facility] TIME, PT (Ammir [place] Physician) INR 1.56 Above high normal [facility] (Ammir [place] Physician) ID Date Data Source [id number] 07/20/2017 12:00:00 AM EDT [facility] (Ammir [place] [...] results) [place] Physician) ID Date Data Source [id number] 07/20/2017 12:00:00 AM EDT [facility] (Ammir [place] [...] NON AFR 72 Above high normal [facility] ITALIAN mL/min/1 (Ammir .73m2 [place] Physician) EGFR AFR 87 Above high normal [facility] ITALIAN mL/min/1 (Ammir .73m2 [place] Physician) ID Date Data Source [id number] 07/20/2017 12:00:00 AM EDT [facility] (Ammir [place] [...] results) [place] Physician) ID Date Data Source [id number] 07/20/2017 12:00:00 AM EDT [facility] (Ammir [place] Physician) Name Value Range Interpretation Description Data Sup porting Code Source(s) Document(s ) FOLATE SERUM 10.3 Above high normal [facility] (A mmir ng/mL [place] Physician) VITAMIN B12 697 pg/mL Normal (applies to [facility] (A mmir non-numeric [place] results) Physician) ID Date Data Source [id number] 07/20/2017 12:00:00 AM EDT [facility] (Ammir [place] Physician) Name Value Range Interpretation Description Data Sup porting Code Source(s) Document(s ) VITAMIN D 47.2 Normal (applies to [facility] (Amm ir 1.25 pg/mL non-numeric [place] results) Physician) ID Date Data Source [id number] 07/20/2017 12:00:00 AM EDT [facility] (Ammir [place] [...] results) [place] Physician) ID Date Data Source [id number] 07/20/2017 12:00:00 AM EDT [facility] (Ammir [place] [...] NON AFR 72 Above high normal [facility] ITALIAN mL/min/1 (Ammir .73m2 [place] Physician) EGFR AFR 87 Above high normal [facility] ITALIAN mL/min/1 (Ammir .73m2 [place] Physician) ID Date Data Source [id number] 07/20/2017 12:00:00 AM EDT [facility] (Ammir [place] [...] results) [place] Physician) ID Date Data Source [id number] 07/20/2017 12:00:00 AM EDT [facility] (Ammir [place] Physician) Name Value Range Interpretation Description Data Sup porting Code Source(s) Document(s ) FOLATE SERUM 10.3 Above high normal [facility] (A mmir ng/mL [place] Physician) VITAMIN B12 697 pg/mL Normal (applies to [facility] (A mmir non-numeric [place] results) Physician) ID Date Data Source [id number] 07/20/2017 12:00:00 AM EDT [facility] (Ammir [place] Physician) Name Value Range Interpretation Description Data Sup porting Code Source(s) Document(s ) VITAMIN D 47.2 Normal (applies to [facility] (Amm ir 1.25 pg/mL non-numeric [place] results) Physician) ID Date Data Source [id number] 07/20/2017 12:00:00 AM EDT [facility] (Ammir [place] [...] results) [place] Physician) ID Date Data Source [id number] 07/20/2017 12:00:00 AM EDT [facility] (Ammir [place] [...] NON AFR 72 Above high normal [facility] ITALIAN mL/min/1 (Ammir .73m2 [place] Physician) EGFR AFR 87 Above high normal [facility] ITALIAN mL/min/1 (Ammir .73m2 [place] Physician) ID Date Data Source [id number] 07/20/2017 12:00:00 AM EDT [facility] (Ammir [place] [...] results) [place] Physician) ID Date Data Source [id number] 07/20/2017 12:00:00 AM EDT [facility] (Ammir [place] Physician) Name Value Range Interpretation Description Data Sup porting Code Source(s) Document(s ) FOLATE SERUM 10.3 Above high normal [facility] (A mmir ng/mL [place] Physician) VITAMIN B12 697 pg/mL Normal (applies to [facility] (A mmir non-numeric [place] results) Physician) ID Date Data Source [id number] 07/20/2017 12:00:00 AM EDT [facility] (Ammir [place] Physician) Name Value Range Interpretation Description Data Sup porting Code Source(s) Document(s ) VITAMIN D 47.2 Normal (applies to [facility] (Amm ir 1.25 pg/mL non-numeric [place] results) Physician) ID Date Data Source [id number] 07/20/2017 12:00:00 AM EDT [facility] (Ammir [place] [...] results) [place] Physician) ID Date Data Source [id number] 07/20/2017 12:00:00 AM EDT [facility] (Ammir [place] [...] NON AFR 72 Above high normal [facility] ITALIAN mL/min/1 (Ammir .73m2 [place] Physician) EGFR AFR 87 Above high normal [facility] ITALIAN mL/min/1 (Ammir .73m2 [place] Physician) ID Date Data Source [id number] 07/20/2017 12:00:00 AM EDT [facility] (Ammir [place] [...] results) [place] Physician) ID Date Data Source [id number] 07/20/2017 12:00:00 AM EDT [facility] (Ammir [place] Physician) Name Value Range Interpretation Description Data Sup porting Code Source(s) Document(s ) FOLATE SERUM 10.3 Above high normal [facility] (A mmir ng/mL [place] Physician) VITAMIN B12 697 pg/mL Normal (applies to [facility] (A mmir non-numeric [place] results) Physician) ID Date Data Source [id number] 07/20/2017 12:00:00 AM EDT [facility] (Ammir [place] Physician) Name Value Range Interpretation Description Data Sup porting Code Source(s) Document(s ) VITAMIN D 47.2 Normal (applies to [facility] (Amm ir 1.25 pg/mL non-numeric [place] results) Physician) ID Date Data Source [id number] 04/26/2017 12:00:00 AM EST [facility] (Ammir [place] [...] NON AFR 45 Above high normal [facility] ITALIAN mL/min/1 (Ammir .73m2 [place] Physician) EGFR AFR 55 Above high normal [facility] ITALIAN mL/min/1 (Ammir .73m2 [place] Physician) ID Date Data Source [id number] 04/26/2017 12:00:00 AM EST [facility] (Ammir [place] Physician) Name Value Range Interpretation Description Data Sup porting Code Source(s) Document(s ) Ferritin 93.3 Normal (applies to [facility] (Amm ir [Interpretat ng/mL non-numeric [place] ion] in results) Physician) Blood ID Date Data Source [id number] 04/26/2017 12:00:00 AM EST [facility] (Ammir [place] [...] results) [place] Physician) ID Date Data Source [id number] 04/26/2017 12:00:00 AM EST [facility] (Ammir [place] [...] results) [place] Physician) ID Date Data Source [id number] 04/26/2017 12:00:00 AM EST [facility] (Ammir [place] [...] NON AFR 45 Above high normal [facility] ITALIAN mL/min/1 (Ammir .73m2 [place] Physician) EGFR AFR 55 Above high normal [facility] ITALIAN mL/min/1 (Ammir .73m2 [place] Physician) ID Date Data Source [id number] 04/26/2017 12:00:00 AM EST [facility] (Ammir [place] Physician) Name Value Range Interpretation Description Data Sup porting Code Source(s) Document(s ) Ferritin 93.3 Normal (applies to [facility] (Amm ir [Interpretat ng/mL non-numeric [place] ion] in results) Physician) Blood ID Date Data Source [id number] 04/26/2017 12:00:00 AM EST [facility] (Ammir [place] [...] results) [place] Physician) ID Date Data Source [id number] 04/26/2017 12:00:00 AM EST [facility] (Ammir [place] [...] results) [place] Physician) ID Date Data Source [id number] 04/26/2017 12:00:00 AM EST [facility] (Ammir [place] [...] (applies [facility] mEq/L to non-numeric (Ammir results) [place] Physician) Carbon dioxide 21 mEq/L Below low [...] NON AFR 45 Above high normal [facility] ITALIAN mL/min/1 (Ammir .73m2 [place] Physician) EGFR AFR 55 Above high normal [facility] ITALIAN mL/min/1 (Ammir .73m2 [place] Physician) ID Date Data Source [id number] 04/26/2017 12:00:00 AM EST [facility] (Ammir [place] Physician) Name Value Range Interpretation Description Data Sup porting Code Source(s) Document(s ) Ferritin 93.3 Normal (applies to [facility] (Amm ir [Interpretat ng/mL non-numeric [place] ion] in results) Physician) Blood ID Date Data Source [id number] 04/26/2017 12:00:00 AM EST [facility] (Ammir [place] [...] results) [place] Physician) ID Date Data Source [id number] 04/26/2017 12:00:00 AM EST [facility] (Ammir [place] [...] results) [place] Physician) ID Date Data Source [id number] 04/26/2017 12:00:00 AM EST [facility] (Ammir [place] [...] NON AFR 45 Above high normal [facility] ITALIAN mL/min/1 (Ammir .73m2 [place] Physician) EGFR AFR 55 Above high normal [facility] ITALIAN mL/min/1 (Ammir .73m2 [place] Physician) ID Date Data Source [id number] 04/26/2017 12:00:00 AM EST [facility] (Ammir [place] Physician) Name Value Range Interpretation Description Data Sup porting Code Source(s) Document(s ) Ferritin 93.3 Normal (applies to [facility] (Amm ir [Interpretat ng/mL non-numeric [place] ion] in results) Physician) Blood ID Date Data Source [id number] 04/26/2017 12:00:00 AM EST [facility] (Ammir [place] [...] results) [place] Physician) ID Date Data Source [id number] 04/26/2017 12:00:00 AM EST [facility] (Ammir [place] [...] results) [place] Physician) ID Date Data Source [id number] 03/29/2017 12:00:00 AM EST [facility] (Ammir [place] [...] results) [place] Physician) ID Date Data Source [id number] 03/29/2017 12:00:00 AM EST [facility] (Ammir [place] [...] NON AFR 63 Above high normal [facility] ITALIAN mL/min/1 (Ammir .73m2 [place] Physician) EGFR AFR 77 Above high normal [facility] ITALIAN mL/min/1 (Ammir .73m2 [place] Physician) ID Date Data Source [id number] 03/29/2017 12:00:00 AM EST [facility] (Ammir [place] Physician) Name Value Range Interpretation Description Data Sup porting Code Source(s) Document(s ) FOLATE SERUM 12.3 Above high normal [facility] (A mmir ng/mL [place] Physician) VITAMIN B12 1046 Above high normal [facility] (Am maria guadalupe pg/mL [place] Physician) ID Date Data Source [id number] 03/29/2017 12:00:00 AM EST [facility] (Ammir [place] [...] results) [place] Physician) ID Date Data Source [id number] 03/29/2017 12:00:00 AM EST [facility] (Ammir [place] Physician) Name Value Range Interpretation Description Data Sup porting Code Source(s) Document(s ) T4 FREE, 1.66 Normal (applies to [facility] THYROXINE ng/dL non-numeric (Ammir results) [place] Physician) TSH,3RD 2.69 Normal (applies to [facility] GENERATION uIU/mL non-numeric (Ammir results) [place] Physician) ID Date Data Source [id number] 03/29/2017 12:00:00 AM EST [facility] (Ammir [place] [...] results) [place] Physician) ID Date Data Source [id number] 03/29/2017 12:00:00 AM EST [facility] (Ammir [place] [...] NON AFR 63 Above high normal [facility] ITALIAN mL/min/1 (Ammir .73m2 [place] Physician) EGFR AFR 77 Above high normal [facility] ITALIAN mL/min/1 (Ammir .73m2 [place] Physician) ID Date Data Source [id number] 03/29/2017 12:00:00 AM EST [facility] (Ammir [place] Physician) Name Value Range Interpretation Description Data Sup porting Code Source(s) Document(s ) FOLATE SERUM 12.3 Above high normal [facility] (A mmir ng/mL [place] Physician) VITAMIN B12 1046 Above high normal [facility] (Am maria guadalupe pg/mL [place] Physician) ID Date Data Source [id number] 03/29/2017 12:00:00 AM EST [facility] (Ammir [place] [...] results) [place] Physician) ID Date Data Source [id number] 03/29/2017 12:00:00 AM EST [facility] (Ammir [place] Physician) Name Value Range Interpretation Description Data Sup porting Code Source(s) Document(s ) T4 FREE, 1.66 Normal (applies to [facility] THYROXINE ng/dL non-numeric (Ammir results) [place] Physician) TSH,3RD 2.69 Normal (applies to [facility] GENERATION uIU/mL non-numeric (Ammir results) [place] Physician) ID Date Data Source [id number] 03/29/2017 12:00:00 AM EST [facility] (Ammir [place] [...] results) [place] Physician) ID Date Data Source [id number] 03/29/2017 12:00:00 AM EST [facility] (Ammir [place] [...] NON AFR 63 Above high normal [facility] ITALIAN mL/min/1 (Ammir .73m2 [place] Physician) EGFR AFR 77 Above high normal [facility] ITALIAN mL/min/1 (Ammir .73m2 [place] Physician) ID Date Data Source [id number] 03/29/2017 12:00:00 AM EST [facility] (Ammir [place] Physician) Name Value Range Interpretation Description Data Sup porting Code Source(s) Document(s ) FOLATE SERUM 12.3 Above high normal [facility] (A mmir ng/mL [place] Physician) VITAMIN B12 1046 Above high normal [facility] (Am maria guadalupe pg/mL [place] Physician) ID Date Data Source [id number] 03/29/2017 12:00:00 AM EST [facility] (Ammir [place] Physician) Name Value Range Interpretation Description Data Sup porting Code Source(s) Document(s ) WBC 7.2 Normal (applies to [facility] 10(3)/uL non-numeric (Ammir results) [place] Physician) RBC 4.9 Normal (applies to [facility] [...] results) [place] Physician) ID Date Data Source [id number] 03/29/2017 12:00:00 AM EST [facility] (Ammir [place] Physician) Name Value Range Interpretation Description Data Sup porting Code Source(s) Document(s ) T4 FREE, 1.66 Normal (applies to [facility] THYROXINE ng/dL non-numeric (Ammir results) [place] Physician) TSH,3RD 2.69 Normal (applies to [facility] GENERATION uIU/mL non-numeric (Ammir results) [place] Physician) ID Date Data Source [id number] 03/29/2017 12:00:00 AM EST [facility] (Ammir [place] [...] results) [place] Physician) ID Date Data Source [id number] 03/29/2017 12:00:00 AM EST [facility] (Ammir [place] [...] NON AFR 63 Above high normal [facility] ITALIAN mL/min/1 (Ammir .73m2 [place] Physician) EGFR AFR 77 Above high normal [facility] ITALIAN mL/min/1 (Ammir .73m2 [place] Physician) ID Date Data Source [id number] 03/29/2017 12:00:00 AM EST [facility] (Ammir [place] Physician) Name Value Range Interpretation Description Data Sup porting Code Source(s) Document(s ) FOLATE SERUM 12.3 Above high normal [facility] (A mmir ng/mL [place] Physician) VITAMIN B12 1046 Above high normal [facility] (Am maria guadalupe pg/mL [place] Physician) ID Date Data Source [id number] 03/29/2017 12:00:00 AM EST [facility] (Ammir [place] [...] Normal (applies to [facility] non-numeric (Ammir results) [place] Physician) LY% 37 % Normal (applies to [...] results) [place] Physician) ID Date Data Source [id number] 03/29/2017 12:00:00 AM EST [facility] (Ammir [place] Physician) Name Value Range Interpretation Description Data Sup porting Code Source(s) Document(s ) T4 FREE, 1.66 Normal (applies to [facility] THYROXINE ng/dL non-numeric (Ammir results) [place] Physician) TSH,3RD 2.69 Normal (applies to [facility] GENERATION uIU/mL non-numeric (Ammir results) [place] Physician) ID Date Data Source [id number] 11/30/2016 12:00:00 AM EDT [facility] (Ammir [place] [...] results) [place] Physician) ID Date Data Source [id number] 11/30/2016 12:00:00 AM EDT [facility] (Ammir [place] [...] NON AFR 63 Above high normal [facility] ITALIAN mL/min/1 (Ammir .73m2 [place] Physician) EGFR AFR 77 Above high normal [facility] ITALIAN mL/min/1 (Ammir .73m2 [place] Physician) ID Date Data Source [id number] 11/30/2016 12:00:00 AM EDT [facility] (Ammir [place] [...] results) [place] Physician) ID Date Data Source [id number] 11/30/2016 12:00:00 AM EDT [facility] (Ammir [place] Physician) Name Value Range Interpretation Description Data Sup porting Code Source(s) Document(s ) T4 FREE, 1.49 Normal (applies to [facility] THYROXINE ng/dL non-numeric (Ammir results) [place] Physician) TSH,3RD 1.99 Normal (applies to [facility] GENERATION uIU/mL non-numeric (Ammir results) [place] Physician) ID Date Data Source [id number] 11/30/2016 12:00:00 AM EDT [facility] (Ammir [place] Physician) Name Value Range Interpretation Description Data Sup porting Code Source(s) Document(s ) FOLATE SERUM 17.1 Above high normal [facility] (A mmir ng/mL [place] Physician) VITAMIN B12 1035 Above high normal [facility] (Am maria guadalupe pg/mL [place] Physician) ID Date Data Source [id number] 11/30/2016 12:00:00 AM EDT [facility] (Ammir [place] Physician) Name Value Range Interpretation Description Data Sup porting Code Source(s) Document(s ) VITAMIN D 53.1 Normal (applies to [facility] (Amm ir 1.25 pg/mL non-numeric [place] results) Physician) ID Date Data Source [id number] 11/30/2016 12:00:00 AM EDT [facility] (Ammir [place] [...] results) [place] Physician) ID Date Data Source [id number] 11/30/2016 12:00:00 AM EDT [facility] (Ammir [place] [...] NON AFR 63 Above high normal [facility] ITALIAN mL/min/1 (Ammir .73m2 [place] Physician) EGFR AFR 77 Above high normal [facility] ITALIAN mL/min/1 (Ammir .73m2 [place] Physician) ID Date Data Source [id number] 11/30/2016 12:00:00 AM EDT [facility] (Ammir [place] [...] results) [place] Physician) ID Date Data Source [id number] 11/30/2016 12:00:00 AM EDT [facility] (Ammir [place] Physician) Name Value Range Interpretation Description Data Sup porting Code Source(s) Document(s ) T4 FREE, 1.49 Normal (applies to [facility] THYROXINE ng/dL non-numeric (Ammir results) [place] Physician) TSH,3RD 1.99 Normal (applies to [facility] GENERATION uIU/mL non-numeric (Ammir results) [place] Physician) ID Date Data Source [id number] 11/30/2016 12:00:00 AM EDT [facility] (Ammir [place] Physician) Name Value Range Interpretation Description Data Sup porting Code Source(s) Document(s ) FOLATE SERUM 17.1 Above high normal [facility] (A mmir ng/mL [place] Physician) VITAMIN B12 1035 Above high normal [facility] (Am maria guadalupe pg/mL [place] Physician) ID Date Data Source [id number] 11/30/2016 12:00:00 AM EDT [facility] (Ammir [place] Physician) Name Value Range Interpretation Description Data Sup porting Code Source(s) Document(s ) VITAMIN D 53.1 Normal (applies to [facility] (Amm ir 1.25 pg/mL non-numeric [place] results) Physician) ID Date Data Source [id number] 11/30/2016 12:00:00 AM EDT [facility] (Ammir [place] [...] results) [place] Physician) ID Date Data Source [id number] 11/30/2016 12:00:00 AM EDT [facility] (Ammir [place] [...] NON AFR 63 Above high normal [facility] ITALIAN mL/min/1 (Ammir .73m2 [place] Physician) EGFR AFR 77 Above high normal [facility] ITALIAN mL/min/1 (Ammir .73m2 [place] Physician) ID Date Data Source [id number] 11/30/2016 12:00:00 AM EDT [facility] (Ammir [place] [...] results) [place] Physician) ID Date Data Source [id number] 11/30/2016 12:00:00 AM EDT [facility] (Ammir [place] Physician) Name Value Range Interpretation Description Data Sup porting Code Source(s) Document(s ) T4 FREE, 1.49 Normal (applies to [facility] THYROXINE ng/dL non-numeric (Ammir results) [place] Physician) TSH,3RD 1.99 Normal (applies to [facility] GENERATION uIU/mL non-numeric (Ammir results) [place] Physician) ID Date Data Source [id number] 11/30/2016 12:00:00 AM EDT [facility] (Ammir [place] Physician) Name Value Range Interpretation Description Data Sup porting Code Source(s) Document(s ) FOLATE SERUM 17.1 Above high normal [facility] (A mmir ng/mL [place] Physician) VITAMIN B12 1035 Above high normal [facility] (Am maria guadalupe pg/mL [place] Physician) ID Date Data Source [id number] 11/30/2016 12:00:00 AM EDT [facility] (Ammir [place] Physician) Name Value Range Interpretation Description Data Sup porting Code Source(s) Document(s ) VITAMIN D 53.1 Normal (applies to [facility] (Amm ir 1.25 pg/mL non-numeric [place] results) Physician) ID Date Data Source [id number] 11/30/2016 12:00:00 AM EDT [facility] (Ammir [place] [...] results) [place] Physician) ID Date Data Source [id number] 11/30/2016 12:00:00 AM EDT [facility] (Ammir [place] [...] NON AFR 63 Above high normal [facility] ITALIAN mL/min/1 (Ammir .73m2 [place] Physician) EGFR AFR 77 Above high normal [facility] ITALIAN mL/min/1 (Ammir .73m2 [place] Physician) ID Date Data Source [id number] 11/30/2016 12:00:00 AM EDT [facility] (Ammir [place] [...] results) [place] Physician) ID Date Data Source [id number] 11/30/2016 12:00:00 AM EDT [facility] (Ammir [place] Physician) Name Value Range Interpretation Description Data Sup porting Code Source(s) Document(s ) T4 FREE, 1.49 Normal (applies to [facility] THYROXINE ng/dL non-numeric (Ammir results) [place] Physician) TSH,3RD 1.99 Normal (applies to [facility] GENERATION uIU/mL non-numeric (Ammir results) [place] Physician) ID Date Data Source [id number] 11/30/2016 12:00:00 AM EDT [facility] (Ammir [place] Physician) Name Value Range Interpretation Description Data Sup porting Code Source(s) Document(s ) FOLATE SERUM 17.1 Above high normal [facility] (A mmir ng/mL [place] Physician) VITAMIN B12 1035 Above high normal [facility] (Am maria guadalupe pg/mL [place] Physician) ID Date Data Source [id number] 11/30/2016 12:00:00 AM EDT [facility] (Ammir [place] Physician) Name Value Range Interpretation Description Data Sup porting Code Source(s) Document(s ) VITAMIN D 53.1 Normal (applies to [facility] (Amm ir 1.25 pg/mL non-numeric [place] results) Physician) ID Date Data Source [id number] 10/09/2016 12:00:00 AM EDT [facility] (Ammir [place] Physician) Name Value Range Interpretation Description Data Sup porting Code Source(s) Document(s ) ORGANISM Abnormal (applies [facility] to non-numeric (Ammir results) [place] Physician) Comment Normal (applies [facility] [Interpretation] to non-numeric (Ammir Left eye Narrative results) [place] Ophthalmometer Physician) ID Date Data Source [id number] 10/09/2016 12:00:00 AM EDT [facility] (Ammir [place] [...] Organism specific culture ID Date Data Source [id number] 10/09/2016 12:00:00 AM EDT [facility] (Ammir [place] Physician) Name Value Range Interpretation Description Data Sup porting Code Source(s) Document(s ) ORGANISM Abnormal (applies [facility] to non-numeric (Ammir results) [place] Physician) Comment Normal (applies [facility] [Interpretation] to non-numeric (Ammir Left eye Narrative results) [place] Ophthalmometer Physician) ID Date Data Source [id number] 10/09/2016 12:00:00 AM EDT [facility] (Ammir [place] [...] Organism specific culture ID Date Data Source [id number] 10/09/2016 12:00:00 AM EDT [facility] (Ammir [place] Physician) Name Value Range Interpretation Description Data Sup porting Code Source(s) Document(s ) ORGANISM Abnormal (applies [facility] to non-numeric (Ammir results) [place] Physician) Comment Normal (applies [facility] [Interpretation] to non-numeric (Ammir Left eye Narrative results) [place] Ophthalmometer Physician) ID Date Data Source [id number] 10/09/2016 12:00:00 AM EDT [facility] (Ammir [place] [...] Organism specific culture ID Date Data Source [id number] 10/09/2016 12:00:00 AM EDT [facility] (Ammir [place] Physician) Name Value Range Interpretation Description Data Sup porting Code Source(s) Document(s ) ORGANISM Abnormal (applies [facility] to non-numeric (Ammir results) [place] Physician) Comment Normal (applies [facility] [Interpretation] to non-numeric (Ammir Left eye Narrative results) [place] Ophthalmometer Physician) ID Date Data Source [id number] 10/09/2016 12:00:00 AM EDT [facility] (Ammir [place] [...] Organism specific culture ID Date Data Source [id number] 08/08/2016 12:00:00 AM EDT [facility] (Ammir [place] Physician) Name Value Range Interpretation Code Description Data Ning rce(s) Supporting Document(s ) LYME TOTAL 0.0 Normal (applies to [facility] (Am maria gu[place]upe IGG/IGM non-numeric results) [place] Physician) ID Date Data Source [id number] 08/08/2016 12:00:00 AM EDT [facility] (Ammir [place] [...] NON AFR 72 Above high normal [facility] ITALIAN mL/min/1 (Ammir .73m2 [place] Physician) EGFR AFR 88 Above high normal [facility] ITALIAN mL/min/1 (Ammir .73m2 [place] Physician) ID Date Data Source [id number] 08/08/2016 12:00:00 AM EDT [facility] (Ammir Wilmar [...] results) [place] Physician) ID Date Data Source [id number] 08/08/2016 12:00:00 AM EDT [facility] (Ammir [place] Physician) Name Value Range Interpretation Code Description Data Ning rce(s) Supporting Document(s ) JERONIMO 0.1 Ratio Normal (applies to [facility] (Amm ir Screen(Sy non-numeric [place]mar mphony) results) Physician) ID Date Data Source [id number] 08/08/2016 12:00:00 AM EDT [facility] (Ammir [place] Physician) Name Value Range Interpretation Description Data Sup porting Code Source(s) Document(s ) ASO 56.1 Normal (applies [facility] ANTISTREPTOLYSIN O IU/mL to non-numeric (Ammir AB results) [place] Physician) ID Date Data Source [id number] 08/08/2016 12:00:00 AM EDT [facility] (Ammir [place] Physician) Name Value Range Interpretation Code Description Data Ning rce(s) Supporting Document(s ) dsDNA <0.5 Normal (applies to [facility] (Amm ir non-numeric results) [place] Physician) ID Date Data Source [id number] 08/08/2016 12:00:00 AM EDT [facility] (Ammir [place] Physician) Name Value Range Interpretation Description Data Sup porting Code Source(s) Document(s ) C-REACTIVE 1.6 mg/dL Above high normal [facility] (Amm ir PROTEIN [place] (INFL) Physician) ID Date Data Source [id number] 08/08/2016 12:00:00 AM EDT [facility] (Ammir [place] Physician) Name Value Range Interpretation Code Description Data Ning rce(s) Supporting Document(s ) URIC ACID 2.5 mg/dL Below low normal [facility] (Ammir [place] Physician) ID Date Data Source [id number] 08/08/2016 12:00:00 AM EDT [facility] (Ammir [place] Physician) Name Value Range Interpretation Description Data Sup porting Code Source(s) Document(s ) RHEUMATOID 10.20 Normal (applies to [facility] FACTOR IGG/IGM IU/mL non-numeric (Ammir results) [place] Physician) ID Date Data Source [id number] 08/08/2016 12:00:00 AM EDT [facility] (Ammir [place] Physician) Name Value Range Interpretation Code Description Data Ning rce(s) Supporting Document(s ) ESR 36 mm/hr Above high normal [facility] (Ammi r [place] Physician) ID Date Data Source [id number] 08/08/2016 12:00:00 AM EDT [facility] (Ammir [place] Physician) Name Value Range Interpretation Code Description Data Ning rce(s) Supporting Document(s ) LYME TOTAL 0.0 Normal (applies to [facility] (Am maria guadalupe IGG/IGM non-numeric results) [place] Physician) ID Date Data Source [id number] 08/08/2016 12:00:00 AM EDT [facility] (Ammir Wilmar [...] NON AFR 72 Above high normal [facility] ITALIAN mL/min/1 (Ammir .73m2 [place] Physician) EGFR AFR 88 Above high normal [facility] ITALIAN mL/min/1 (Ammir .73m2 [place] Physician) ID Date Data Source [id number] 08/08/2016 12:00:00 AM EDT [facility] (Ammir Wilmar [...] results) [place] Physician) ID Date Data Source [id number] 08/08/2016 12:00:00 AM EDT [facility] (Ammir [place] Physician) Name Value Range Interpretation Code Description Data Ning rce(s) Supporting Document(s ) JERONIMO 0.1 Ratio Normal (applies to [facility] (Amm ir Screen(Sy non-numeric [place] mphony) results) Physician) ID Date Data Source [id number] 08/08/2016 12:00:00 AM EDT [facility] (Ammir [place] Physician) Name Value Range Interpretation Description Data Sup porting Code Source(s) Document(s ) ASO 56.1 Normal (applies [facility] ANTISTREPTOLYSIN O IU/mL to non-numeric (Ammir AB results) [place] Physician) ID Date Data Source [id number] 08/08/2016 12:00:00 AM EDT [facility] (Ammir [place] Physician) Name Value Range Interpretation Code Description Data Ning rce(s) Supporting Document(s ) dsDNA <0.5 Normal (applies to [facility] (Amm ir non-numeric results) [place] Physician) ID Date Data Source [id number] 08/08/2016 12:00:00 AM EDT [facility] (Ammir [place] Physician) Name Value Range Interpretation Description Data Sup porting Code Source(s) Document(s ) C-REACTIVE 1.6 mg/dL Above high normal [facility] (Amm ir PROTEIN [place] (INFL) Physician) ID Date Data Source [id number] 08/08/2016 12:00:00 AM EDT [facility] (Ammir [place] Physician) Name Value Range Interpretation Code Description Data Ning rce(s) Supporting Document(s ) URIC ACID 2.5 mg/dL Below low normal [facility] (Ammir [place] Physician) ID Date Data Source [id number] 08/08/2016 12:00:00 AM EDT [facility] (Ammir [place] Physician) Name Value Range Interpretation Description Data Sup porting Code Source(s) Document(s ) RHEUMATOID 10.20 Normal (applies to [facility] FACTOR IGG/IGM IU/mL non-numeric (Ammir results) [place] Physician) ID Date Data Source [id number] 08/08/2016 12:00:00 AM EDT [facility] (Ammir [place] Physician) Name Value Range Interpretation Code Description Data Ning rce(s) Supporting Document(s ) ESR 36 mm/hr Above high normal [facility] (Ammi r [place] Physician) ID Date Data Source [id number] 08/08/2016 12:00:00 AM EDT [facility] (Ammir Wilmar [...] results) [place] Physician) ID Date Data Source [id number] 08/08/2016 12:00:00 AM EDT [facility] (Ammir [place] Physician) Name Value Range Interpretation Code Description Data Ning rce(s) Supporting Document(s ) JERONIMO 0.1 Ratio Normal (applies to [facility] (Amm ir Screen(Sy non-numeric [place] mphony) results) Physician) ID Date Data Source [id number] 08/08/2016 12:00:00 AM EDT [facility] (Ammir [place] Physician) Name Value Range Interpretation Description Data Sup porting Code Source(s) Document(s ) ASO 56.1 Normal (applies [facility] ANTISTREPTOLYSIN O IU/mL to non-numeric (Ammir AB results) [place] Physician) ID Date Data Source [id number] 08/08/2016 12:00:00 AM EDT [facility] (Ammir [place] Physician) Name Value Range Interpretation Code Description Data Ning rce(s) Supporting Document(s ) dsDNA <0.5 Normal (applies to [facility] (Amm ir non-numeric results) [place] Physician) ID Date Data Source [id number] 08/08/2016 12:00:00 AM EDT [facility] (Ammir [place] Physician) Name Value Range Interpretation Description Data Sup porting Code Source(s) Document(s ) C-REACTIVE 1.6 mg/dL Above high normal [facility] (Amm ir PROTEIN [place] (INFL) Physician) ID Date Data Source [id number] 08/08/2016 12:00:00 AM EDT [facility] (Ammir [place] Physician) Name Value Range Interpretation Code Description Data Ning rce(s) Supporting Document(s ) URIC ACID 2.5 mg/dL Below low normal [facility] (Ammir [place] Physician) ID Date Data Source [id number] 08/08/2016 12:00:00 AM EDT [facility] (Ammir [place] Physician) Name Value Range Interpretation Description Data Sup porting Code Source(s) Document(s ) RHEUMATOID 10.20 Normal (applies to [facility] FACTOR IGG/IGM IU/mL non-numeric (Ammir results) [place] Physician) ID Date Data Source [id number] 08/08/2016 12:00:00 AM EDT [facility] (Ammir [place] Physician) Name Value Range Interpretation Code Description Data Ning rce(s) Supporting Document(s ) ESR 36 mm/hr Above high normal [facility] (Ammi r [place] Physician) ID Date Data Source [id number] 08/08/2016 12:00:00 AM EDT [facility] (Ammir [place] Physician) Name Value Range Interpretation Code Description Data Ning rce(s) Supporting Document(s ) LYME TOTAL 0.0 Normal (applies to [facility] (Am maria guadalupe IGG/IGM non-numeric results) [place] Physician) ID Date Data Source [id number] 08/08/2016 12:00:00 AM EDT [facility] (Ammir [place] [...] NON AFR 72 Above high normal [facility] ITALIAN mL/min/1 (Ammir .73m2 [place] Physician) EGFR AFR 88 Above high normal [facility] ITALIAN mL/min/1 (Ammir .73m2 [place] Physician) ID Date Data Source [id number] 08/08/2016 12:00:00 AM EDT [facility] (Ammir Wilmar [...] results) [place] Physician) ID Date Data Source [id number] 08/08/2016 12:00:00 AM EDT [facility] (Ammir [place] Physician) Name Value Range Interpretation Code Description Data Ning rce(s) Supporting Document(s ) JERONIMO 0.1 Ratio Normal (applies to [facility] (Amm ir Screen(Sy non-numeric [place] mphony) results) Physician) ID Date Data Source [id number] 08/08/2016 12:00:00 AM EDT [facility] (Ammir [place] Physician) Name Value Range Interpretation Description Data Sup porting Code Source(s) Document(s ) ASO 56.1 Normal (applies [facility] ANTISTREPTOLYSIN O IU/mL to non-numeric (Ammir AB results) [place] Physician) ID Date Data Source [id number] 08/08/2016 12:00:00 AM EDT [facility] (Ammir [place] Physician) Name Value Range Interpretation Code Description Data Ning rce(s) Supporting Document(s ) dsDNA <0.5 Normal (applies to [facility] (Amm ir non-numeric results) [place] Physician) ID Date Data Source [id number] 08/08/2016 12:00:00 AM EDT [facility] (Ammir [place] Physician) Name Value Range Interpretation Description Data Sup porting Code Source(s) Document(s ) C-REACTIVE 1.6 mg/dL Above high normal [facility] (Amm ir PROTEIN [place] (INFL) Physician) ID Date Data Source [id number] 08/08/2016 12:00:00 AM EDT [facility] (Ammir [place] Physician) Name Value Range Interpretation Code Description Data Ning rce(s) Supporting Document(s ) URIC ACID 2.5 mg/dL Below low normal [facility] (Ammir [place] Physician) ID Date Data Source [id number] 08/08/2016 12:00:00 AM EDT [facility] (Ammir [place] Physician) Name Value Range Interpretation Description Data Sup porting Code Source(s) Document(s ) RHEUMATOID 10.20 Normal (applies to [facility] FACTOR IGG/IGM IU/mL non-numeric (Ammir results) [place] Physician) ID Date Data Source [id number] 08/08/2016 12:00:00 AM EDT [facility] (Ammir [place] Physician) Name Value Range Interpretation Code Description Data Ning rce(s) Supporting Document(s ) ESR 36 mm/hr Above high normal [facility] (Ammi r [place] Physician) ID Date Data Source [id number] 08/08/2016 12:00:00 AM EDT [facility] (Ammir [place] Physician) Name Value Range Interpretation Code Description Data Ning rce(s) Supporting Document(s ) LYME TOTAL 0.0 Normal (applies to [facility] (Am maria guadalupe IGG/IGM non-numeric results) [place] Physician) ID Date Data Source [id number] 08/08/2016 12:00:00 AM EDT [facility] (Ammir [place] [...] NON AFR 72 Above high normal [facility] ITALIAN mL/min/1 (Ammir .73m2 [place] Physician) EGFR AFR 88 Above high normal [facility] ITALIAN mL/min/1 (Ammir .73m2 [place] Physician) ID Date Data Source [id number] 06/24/2016 12:00:00 AM EDT [facility] (Ammir [place] Physician) Name Value Range Interpretation Description Data Sup porting Code Source(s) Document(s ) HEPATITIS NONREACTIVE Normal (applies [facility] A(IGM) to non-numeric (Ammir results) [place] Physician) ID Date Data Source [id number] 06/24/2016 12:00:00 AM EDT [facility] (Ammir [place] Physician) Name Value Range Interpretation Code Description Data Ning rce(s) Supporting Document(s ) T3 TOTAL 86 ng/dL Normal (applies to [facility] (Amm ir non-numeric [place] results) Physician) ID Date Data Source [id number] 06/24/2016 12:00:00 AM EDT [facility] (Ammir [place] Physician) Name Value Range Interpretation Description Data Sup porting Code Source(s) Document(s ) T4 TOTAL 10 ug/dL Normal (applies to [facility] (Amm ir THYROXINE non-numeric [place] results) Physician) ID Date Data Source [id number] 06/24/2016 12:00:00 AM EDT [facility] (Ammir [place] Physician) Name Value Range Interpretation Description Data Sup porting Code Source(s) Document(s ) T3 FREE 2.5 Normal (applies [facility] TRIIODOTHYRONINE pg/mL to non-numeric (Ammir results) [place] Physician) ID Date Data Source [id number] 06/24/2016 12:00:00 AM EDT [facility] (Ammir Wilmar [...] results) [place] Physician) ID Date Data Source [id number] 06/24/2016 12:00:00 AM EDT [facility] (mir [place] [...] normal [facility] [VFr/PPres] in (Ammir [employer] [facility] system Physician) Anion gap in 19.6 Above high normal [facility]) BLOOD UREA 4 mg/dL Below low normal [facility] NITROGEN ([facility] CREATININE, 1 mg/dL Above high normal [facility] SERUM ([facility]) BUN/CREATININE 4.00 Below low normal [facility] RATIO [facility]) CALCIUM, SERUM 9.7 Normal (applies [facility] mg/dL to non-numeric (Ammir results) [place] Physician) TOTAL PROTEIN 1.6 g/dL Below low normal [facility]) Microalbumin 1 g/dL Below low [...] U/L Below low normal [facility] PHOSPHATASE, ALP ([facility]) ALT (SGPT) 6 U/L Below low normal [facility] (Ammir [place] Physician) AST 9 U/L Below low normal [facility] (Ammir [place] Physician) EGFR NON AFR 56 Above high normal [facility] ITALIAN mL/min/1 (Ammir .73m2 [place] Physician) EGFR AFR 68 Above high normal [facility] ITALIAN mL/min/1 (Ammir .73m2 [place] Physician) ID Date Data Source [id number] 06/24/2016 12:00:00 AM EDT [facility] (Ammir Wilmar [...] results) [place] Physician) ID Date Data Source [id number] 06/24/2016 12:00:00 AM EDT [facility] (Ammir [place] Physician) Name Value Range Interpretation Code Description Data Supporting Source(s) Document(s ) GLYCOMARK 11.49 Normal (applies to [facility] (Amm ir ug/mL non-numeric [place] results) Physician) ID Date Data Source [id number] 06/24/2016 12:00:00 AM EDT [facility] (Ammir [place] Physician) Name Value Range Interpretation Description Data Sup porting Code Source(s) Document(s ) Hemoglobin A1c 5.2 % Normal (applies to [facility] (Ammir in Blood non-numeric [place] results) Physician) ID Date Data Source [id number] 06/24/2016 12:00:00 AM EDT [facility] (Ammir [place] Physician) Name Value Range Interpretation Description Data Sup porting Code Source(s) Document(s ) HEPATITIS BE NONREACTIVE Normal (applies [facility] AG to non-numeric (Ammir results) [place] Physician) ID Date Data Source [id number] 06/24/2016 12:00:00 AM EDT [facility] (Ammir [place] Physician) Name Value Range Interpretation Description Data Sup porting Code Source(s) Document(s ) HEPATITIS B <3.10 Normal (applies to [facility] (A mmir SURFACE AB (NONREACT non-numeric [place]mar JEREMIE) results) Physician) ID Date Data Source [id number] 06/24/2016 12:00:00 AM EDT [facility] (Ammir [place] Physician) Name Value Range Interpretation Description Data Sup porting Code Source(s) Document(s ) HEPATITIS B NONREACTIVE Normal (applies [facility] CORE AB QL to non-numeric (Ammir results) [place] Physician) ID Date Data Source [id number] 06/24/2016 12:00:00 AM EDT [facility] (Ammir [place] Physician) Name Value Range Interpretation Description Data Sup porting Code Source(s) Document(s ) HEPATITIS C NONREACTIVE Normal (applies [facility] AB QL to non-numeric (Ammir results) [place] Physician) ID Date Data Source [id number] 06/24/2016 12:00:00 AM EDT [facility] (Ammir [place] Physician) Name Value Range Interpretation Code Description Data Ning rce(s) Supporting Document(s ) HBeAB NEGATIVE Normal (applies to [facility] (Amm ir non-numeric results) [place] Physician) ID Date Data Source [id number] 06/24/2016 12:00:00 AM EDT [facility] (Ammir [place] Physician) Name Value Range Interpretation Description Data Sup porting Code Source(s) Document(s ) HEPATITIS BS NONREACTIVE Normal (applies [facility] AG SCREEN to non-numeric (Ammir results) [place] Physician) ID Date Data Source [id number] 06/24/2016 12:00:00 AM EDT [facility] (Ammir [place] Physician) Name Value Range Interpretation Description Data Sup porting Code Source(s) Document(s ) HEPATITIS A REACTIVE Normal (applies to [facility] (A mmir AB non-numeric [place] results) Physician) ID Date Data Source [id number] 06/24/2016 12:00:00 AM EDT [facility] (Ammir [place] Physician) Name Value Range Interpretation Description Data Sup porting Code Source(s) Document(s ) T4 FREE, 1.65 Normal (applies to [facility] THYROXINE ng/dL non-numeric (Ammir results) [place] Physician) TSH,3RD 3.007 Normal (applies to [facility] GENERATION uIU/mL non-numeric (Ammir results) [place] Physician) ID Date Data Source [id number] 06/24/2016 12:00:00 AM EDT [facility] (Ammir [place] Physician) Name Value Range Interpretation Description Data Sup porting Code Source(s) Document(s ) FOLATE SERUM 21.6 Above high normal [facility] (A mmir ng/mL [place] Physician) VITAMIN B12 1124 Above high normal [facility] (Am maria guadalupe pg/mL [place] Physician) ID Date Data Source [id number] 06/24/2016 12:00:00 AM EDT [facility] (Ammir [place] Physician) Name Value Range Interpretation Description Data Sup porting Code Source(s) Document(s ) VITAMIN D 29.8 Normal (applies to [facility] (Amm ir 1.25 pg/mL non-numeric [place] results) Physician) ID Date Data Source [id number] 06/24/2016 12:00:00 AM EDT [facility] (Ammir [place] Physician) Name Value Range Interpretation Description Data Sup porting Code Source(s) Document(s ) HEPATITIS NONREACTIVE Normal (applies [facility] A(IGM) to non-numeric (Ammir results) [place] Physician) ID Date Data Source [id number] 06/24/2016 12:00:00 AM EDT [facility] (Ammir [place] Physician) Name Value Range Interpretation Code Description Data Ning rce(s) Supporting Document(s ) T3 TOTAL 86 ng/dL Normal (applies to [facility] (Amm ir non-numeric [place] results) Physician) ID Date Data Source [id number] 06/24/2016 12:00:00 AM EDT [facility] (Ammir [place] Physician) Name Value Range Interpretation Description Data Sup porting Code Source(s) Document(s ) T4 TOTAL 10 ug/dL Normal (applies to [facility] (Amm ir THYROXINE non-numeric [place] results) Physician) ID Date Data Source [id number] 06/24/2016 12:00:00 AM EDT [facility] (Ammir [place] Physician) Name Value Range Interpretation Description Data Sup porting Code Source(s) Document(s ) T3 FREE 2.5 Normal (applies [facility] TRIIODOTHYRONINE pg/mL to non-numeric (Ammir results) [place] Physician) ID Date Data Source [id number] 06/24/2016 12:00:00 AM EDT [facility] (Ammir Wilmar [...] results) [place] Physician) ID Date Data Source [id number] 06/24/2016 12:00:00 AM EDT [facility] (Ammir [place] [...] NON AFR 56 Above high normal [facility] ITALIAN mL/min/1 (Ammir .73m2 [place] Physician) EGFR AFR 68 Above high normal [facility] ITALIAN mL/min/1 (Ammir .73m2 [place] Physician) ID Date Data Source [id number] 06/24/2016 12:00:00 AM EDT [facility] (Ammir [place] Physician) Name Value Range Interpretation Description Data Sup porting Code Source(s) Document(s ) WBC 8.07 Normal (applies to [facility] 10(3)/uL non-numeric (Ammir results) [place] Physician) RBC 4.73 Normal (applies to [facility] 10(6)/uL non-numeric (Ammir results) [place] Physician) Hemoglobin 14.9 g/dL Normal (applies to [...] to [facility] non-numeric (Ammir results) [place] Physician) NE# 4.39 Normal (applies to [facility] [...] results) [place] Physician) ID Date Data Source [id number] 06/24/2016 12:00:00 AM EDT [facility] (Ammir [place] Physician) Name Value Range Interpretation Code Description Data Supporting Source(s) Document(s ) GLYCOMARK 11.49 Normal (applies to [facility] (Amm ir ug/mL non-numeric [place] results) Physician) ID Date Data Source [id number] 06/24/2016 12:00:00 AM EDT [facility] (Ammir [place] Physician) Name Value Range Interpretation Description Data Sup porting Code Source(s) Document(s ) Hemoglobin A1c 5.2 % Normal (applies to [facility] (Ammir in Blood non-numeric [place] results) Physician) ID Date Data Source [id number] 06/24/2016 12:00:00 AM EDT [facility] (Ammir [place] Physician) Name Value Range Interpretation Description Data Sup porting Code Source(s) Document(s ) HEPATITIS BE NONREACTIVE Normal (applies [facility] AG to non-numeric (Ammir results) [place] Physician) ID Date Data Source [id number] 06/24/2016 12:00:00 AM EDT [facility] (Ammir [place] Physician) Name Value Range Interpretation Description Data Sup porting Code Source(s) Document(s ) HEPATITIS B <3.10 Normal (applies to [facility] (A mmir SURFACE AB (NONREACT non-numeric [place] JEREMIE) results) Physician) ID Date Data Source [id number] 06/24/2016 12:00:00 AM EDT [facility] (Ammir [place] Physician) Name Value Range Interpretation Description Data Sup porting Code Source(s) Document(s ) HEPATITIS B NONREACTIVE Normal (applies [facility] CORE AB QL to non-numeric (Ammir results) [place] Physician) ID Date Data Source [id number] 06/24/2016 12:00:00 AM EDT [facility] (Ammir [place] Physician) Name Value Range Interpretation Description Data Sup porting Code Source(s) Document(s ) HEPATITIS C NONREACTIVE Normal (applies [facility] AB QL to non-numeric (Ammir results) [place] Physician) ID Date Data Source [id number] 06/24/2016 12:00:00 AM EDT [facility] (Ammir [place] Physician) Name Value Range Interpretation Code Description Data Ning rce(s) Supporting Document(s ) HBeAB NEGATIVE Normal (applies to [facility] (Amm ir non-numeric results) [place] Physician) ID Date Data Source [id number] 06/24/2016 12:00:00 AM EDT [facility] (Ammir [place] Physician) Name Value Range Interpretation Description Data Sup porting Code Source(s) Document(s ) HEPATITIS BS NONREACTIVE Normal (applies [facility] AG SCREEN to non-numeric (Ammir results) [place] Physician) ID Date Data Source [id number] 06/24/2016 12:00:00 AM EDT [facility] (Ammir [place] Physician) Name Value Range Interpretation Description Data Sup porting Code Source(s) Document(s ) HEPATITIS A REACTIVE Normal (applies to [facility] (A mmir AB non-numeric [place] results) Physician) ID Date Data Source [id number] 06/24/2016 12:00:00 AM EDT [facility] (Ammir [place] Physician) Name Value Range Interpretation Description Data Sup porting Code Source(s) Document(s ) T4 FREE, 1.65 Normal (applies to [facility] THYROXINE ng/dL non-numeric (Ammir results) [place] Physician) TSH,3RD 3.007 Normal (applies to [facility] GENERATION uIU/mL non-numeric (Ammir results) [place] Physician) ID Date Data Source [id number] 06/24/2016 12:00:00 AM EDT [facility] (Ammir [place] Physician) Name Value Range Interpretation Description Data Sup porting Code Source(s) Document(s ) FOLATE SERUM 21.6 Above high normal [facility] (A mmir ng/mL [place] Physician) VITAMIN B12 1124 Above high normal [facility] (Am maria guadalupe pg/mL [place] Physician) ID Date Data Source [id number] 06/24/2016 12:00:00 AM EDT [facility] (Ammir [place] Physician) Name Value Range Interpretation Description Data Sup porting Code Source(s) Document(s ) VITAMIN D 29.8 Normal (applies to [facility] (Amm ir 1.25 pg/mL non-numeric [place] results) Physician) ID Date Data Source [id number] 06/24/2016 12:00:00 AM EDT [facility] (Ammir [place] Physician) Name Value Range Interpretation Description Data Sup porting Code Source(s) Document(s ) HEPATITIS NONREACTIVE Normal (applies [facility] A(IGM) to non-numeric (Ammir results) [place] Physician) ID Date Data Source [id number] 06/24/2016 12:00:00 AM EDT [facility] (Ammir [place] Physician) Name Value Range Interpretation Code Description Data Ning rce(s) Supporting Document(s ) T3 TOTAL 86 ng/dL Normal (applies to [facility] (Amm ir non-numeric [place] results) Physician) ID Date Data Source [id number] 06/24/2016 12:00:00 AM EDT [facility] (Ammir [place] Physician) Name Value Range Interpretation Description Data Sup porting Code Source(s) Document(s ) T4 TOTAL 10 ug/dL Normal (applies to [facility] (Amm ir THYROXINE non-numeric [place] results) Physician) ID Date Data Source [id number] 06/24/2016 12:00:00 AM EDT [facility] (Ammir [place] Physician) Name Value Range Interpretation Description Data Sup porting Code Source(s) Document(s ) T3 FREE 2.5 Normal (applies [facility] TRIIODOTHYRONINE pg/mL to non-numeric (Ammir results) [place] Physician) ID Date Data Source [id number] 06/24/2016 12:00:00 AM EDT [facility] (Ammir Wilmar [...] results) [place] Physician) ID Date Data Source [id number] 06/24/2016 12:00:00 AM EDT [facility] (Ammir Wil[place] [...] Above high normal [facility] BLOOD UREA 4 mg/dL Below [...] TOTAL 0.2 Below low normal [facility] mg/dL [facility]) ALKALINE 24 U/L Below low normal [facility] PHOSPHATASE, ALP ([facility]) ALT (SGPT) 6 U/L Below low normal [facility] (Ammir [place] Physician) AST 9 U/L Below low normal [facility] (Ammir [place] Physician) EGFR NON AFR 56 Above high normal [facility] ITALIAN mL/min/1 (Ammir .73m2 [place] Physician) EGFR AFR 68 Above high normal [facility] ITALIAN mL/min/1 (Ammir .73m2 [place] Physician) ID Date Data Source [id number] 06/24/2016 12:00:00 AM EDT [facility] (mir [place] [...] [Pure volume non-numeric (Ammir fraction] of results) [facility] Blood by Physician) Automated count MCV 92.6 [...] results) [place] Physician) ID Date Data Source [id number] 06/24/2016 12:00:00 AM EDT [facility] (Ammir [place] Physician) Name Value Range Interpretation Code Description Data Supporting Source(s) Document(s ) GLYCOMARK 11.49 Normal (applies to [facility] (Amm ir ug/mL non-numeric [place] results) Physician) ID Date Data Source [id number] 06/24/2016 12:00:00 AM EDT [facility] (Ammir [place] Physician) Name Value Range Interpretation Description Data Sup porting Code Source(s) Document(s ) Hemoglobin A1c 5.2 % Normal (applies to [facility] (Ammir in Blood non-numeric [place] results) Physician) ID Date Data Source [id number] 06/24/2016 12:00:00 AM EDT [facility] (Ammir [facility] Physician) Name Value Range Interpretation Description Data Sup porting Code Source(s) Document(s ) HEPATITIS BE NONREACTIVE Normal (applies [facility] AG to non-numeric (Ammir results) [facility] Physician) ID Date Data Source [id number] 06/24/2016 12:00:00 AM EDT [facility] (Ammir [facility] Physician) Name Value Range Interpretation Description Data Sup porting Code Source(s) Document(s ) HEPATITIS B <3.10 Normal (applies to [facility] (A mmir SURFACE AB (NONREACT non-numeric Wilmar JEREMIE) results) Physician) ID Date Data Source [id number] 06/24/2016 12:00:00 AM EDT [facility] (Ammir Wil[facility] Physician) Name Value Range Interpretation Description Data Sup porting Code Source(s) Document(s ) HEPATITIS B NONREACTIVE Normal (applies [facility] CORE AB QL to non-numeric (Ammir results) [place] Physician) ID Date Data Source [id number] 06/24/2016 12:00:00 AM EDT [facility] (Ammir Wilmar Physician) Name Value Range Interpretation Description Data Sup porting Code Source(s) Document(s ) HEPATITIS C NONREACTIVE Normal (applies [facility] AB QL to non-numeric (Ammir results) [facility] Physician) ID Date Data Source [id number] 06/24/2016 12:00:00 AM EDT [facility] (Ammir Wilmar Physician) Name Value Range Interpretation Code Description Data Ning rce(s) Supporting Document(s ) HBeAB NEGATIVE Normal (applies to [facility] (Amm ir non-numeric results) [facility] Physician) ID Date Data Source [id number] 06/24/2016 12:00:00 AM EDT [facility] (Ammir [facility] Physician) Name Value Range Interpretation Description Data Sup porting Code Source(s) Document(s ) HEPATITIS BS NONREACTIVE Normal (applies [facility] AG SCREEN to non-numeric (Ammir results) [place] Physician) ID Date Data Source [id number] 06/24/2016 12:00:00 AM EDT [facility] (Ammir Wil[facility] Physician) Name Value Range Interpretation Description Data Sup porting Code Source(s) Document(s ) HEPATITIS A REACTIVE Normal (applies to [facility] (A mmir AB non-numeric [place]mar results) Physician) ID Date Data Source [id number] 06/24/2016 12:00:00 AM EDT [facility] (Ammir [facility] Physician) Name Value Range Interpretation Description Data Sup porting Code Source(s) Document(s ) T4 FREE, 1.65 Normal (applies to [facility] THYROXINE ng/dL non-numeric (Ammir results) [facility] Physician) TSH,3RD 3.007 Normal (applies to [facility] GENERATION uIU/mL non-numeric (Ammir results) [facility] Physician) ID Date Data Source [id number] 06/24/2016 12:00:00 AM EDT [facility] (Ammir [facility] Physician) Name Value Range Interpretation Description Data Sup porting Code Source(s) Document(s ) FOLATE SERUM 21.6 Above high normal [facility] (A mmir ng/mL [place] Physician) VITAMIN B12 1124 Above high normal [facility] (Am maria guadalupe pg/mL [place] Physician) ID Date Data Source [id number] 06/24/2016 12:00:00 AM EDT [facility] (Ammir [facility] Physician) Name Value Range Interpretation Description Data Sup porting Code Source(s) Document(s ) VITAMIN D 29.8 Normal (applies to [facility] (Amm ir 1.25 pg/mL non-numeric Wilmar results) Physician) ID Date Data Source [id number] 06/24/2016 12:00:00 AM EDT [facility] (Ammir Wil[facility] Physician) Name Value Range Interpretation Description Data Sup porting Code Source(s) Document(s ) HEPATITIS NONREACTIVE Normal (applies [facility] A(IGM) to non-numeric (Ammir results) [place] Physician) ID Date Data Source [id number] 06/24/2016 12:00:00 AM EDT [facility] (Ammir Wil[facility] Physician) Name Value Range Interpretation Code Description Data Ning rce(s) Supporting Document(s ) T3 TOTAL 86 ng/dL Normal (applies to [facility] (Amm ir non-numeric [place] results) Physician) ID Date Data Source [id number] 06/24/2016 12:00:00 AM EDT [facility] (Ammir Wilmar Physician) Name Value Range Interpretation Description Data Sup porting Code Source(s) Document(s ) T4 TOTAL 10 ug/dL Normal (applies to [facility] (Amm ir THYROXINE non-numeric [place] results) Physician) ID Date Data Source [id number] 06/24/2016 12:00:00 AM EDT [facility] (Ammir Wilmar Physician) Name Value Range Interpretation Description Data Sup porting Code Source(s) Document(s ) T3 FREE 2.5 Normal (applies [facility] TRIIODOTHYRONINE pg/mL to non-numeric (Ammir results) [facility] Physician) ID Date Data Source [id number] 06/24/2016 12:00:00 AM EDT [facility] (Ammir Wilmar [...] results) Wilmar Physician) ID Date Data Source [id number] 06/24/2016 12:00:00 AM EDT [facility] (mir Wilmar [...] mEq/L Below low normal [facility] [VFr/PPres] [facility] Phys[facility]) Anion gap in 19.6 Above high normal [facility] Body fluid mEq/L ([facility] BLOOD UREA 4 mg/dL Below low normal [facility] NITROGEN ([facility]) CREATININE, 1 mg/dL Above high normal [facility] BUN/CREATININE 4.00 Below low normal [facility] RATIO ([facility]) CALCIUM, SERUM 9.7 Normal (applies [facility] mg/dL to non-numeric (Ammir results) [place] Physician) TOTAL PROTEIN 1.6 g/dL Below low normal [facility]) Microalbumin 1 g/dL Below low normal [facility] [Mass/time] in ([facility] Urine collected [place] for unspecified Physician) duration Globulin 0.6 gldl Below low normal [facility] [Mass/time] in ([facility]rine [place] Physician) A/G RATIO 1.67 Normal (applies [facility] g/dl to non-numeric (Ammir results) [place] Physician) BILIRUBIN, TOTAL 0.2 Below low normal [facility] mg/dL ([facility]) ALKALINE 24 U/L Below low normal [facility] PHOSPHATASE, ALP (Ammir Wilmar Physician) ALT (SGPT) 6 U/L Below low normal [facility] (Ammir Wil[place] Physician) AST 9 U/L Below low normal [facility] (Ammir Wilmar Physician) EGFR NON AFR 56 Above high normal [facility] ITALIAN mL/min/1 (Ammir .73m2 [place] Physician) EGFR AFR 68 Above high normal [facility] ITALIAN mL/min/1 (Ammir .73m2 [place] Physician) ID Date Data Source [id number] 06/24/2016 12:00:00 AM EDT [facility] (Ammir Wilmar [...] (applies to [facility] 10(3)/uL non-numeric (Ammir results) [place] Physician) IG# 0.02 Normal (applies to [facility] [...] results) [place] Physician) ID Date Data Source [id number] 06/24/2016 12:00:00 AM EDT [facility] (Ammir Wilmar Physician) Name Value Range Interpretation Code Description Data Supporting Source(s) Document(s ) GLYCOMARK 11.49 Normal (applies to [facility] (Amm ir ug/mL non-numeric [place]mar results) Physician) ID Date Data Source [id number] 06/24/2016 12:00:00 AM EDT [facility] (Ammir Wilmar Physician) Name Value Range Interpretation Description Data Sup porting Code Source(s) Document(s ) Hemoglobin A1c 5.2 % Normal (applies to [facility] (Ammir in Blood non-numeric Wilmar results) Physician) ID Date Data Source [id number] 06/24/2016 12:00:00 AM EDT [facility] (Ammir Wilmar Physician) Name Value Range Interpretation Description Data Sup porting Code Source(s) Document(s ) HEPATITIS BE NONREACTIVE Normal (applies [facility] AG to non-numeric (Ammir results) [place] Physician) ID Date Data Source [id number] 06/24/2016 12:00:00 AM EDT [facility] (Ammir Wilmar Physician) Name Value Range Interpretation Description Data Sup porting Code Source(s) Document(s ) HEPATITIS B <3.10 Normal (applies to [facility] (A mmir SURFACE AB (NONREACT non-numeric Wilmar JEREMIE) results) Physician) ID Date Data Source [id number] 06/24/2016 12:00:00 AM EDT [facility] (Ammir Wilmar Physician) Name Value Range Interpretation Description Data Sup porting Code Source(s) Document(s ) HEPATITIS B NONREACTIVE Normal (applies [facility] CORE AB QL to non-numeric (Ammir results) [place] Physician) ID Date Data Source [id number] 06/24/2016 12:00:00 AM EDT [facility] (Ammir Wilmar Physician) Name Value Range Interpretation Description Data Sup porting Code Source(s) Document(s ) HEPATITIS C NONREACTIVE Normal (applies [facility] AB QL to non-numeric (Ammir results) [place] Physician) ID Date Data Source [id number] 06/24/2016 12:00:00 AM EDT [facility] (Ammir Wilmar Physician) Name Value Range Interpretation Code Description Data Ning rce(s) Supporting Document(s ) HBeAB NEGATIVE Normal (applies to [facility] (Amm ir non-numeric results) [place] Physician) ID Date Data Source [id number] 06/24/2016 12:00:00 AM EDT [facility] (Ammir Wilmar Physician) Name Value Range Interpretation Description Data Sup porting Code Source(s) Document(s ) HEPATITIS BS NONREACTIVE Normal (applies [facility] AG SCREEN to non-numeric (Ammir results) [place] Physician) ID Date Data Source [id number] 06/24/2016 12:00:00 AM EDT [facility] (Ammir Wilmar Physician) Name Value Range Interpretation Description Data Sup porting Code Source(s) Document(s ) HEPATITIS A REACTIVE Normal (applies to [facility] (A mmir AB non-numeric [place]mar results) Physician) ID Date Data Source [id number] 06/24/2016 12:00:00 AM EDT [facility] (Ammir Wilmar Physician) Name Value Range Interpretation Description Data Sup porting Code Source(s) Document(s ) T4 FREE, 1.65 Normal (applies to [facility] THYROXINE ng/dL non-numeric (Ammir results) [place] Physician) TSH,3RD 3.007 Normal (applies to [facility] GENERATION uIU/mL non-numeric (Ammir results) [place] Physician) ID Date Data Source [id number] 06/24/2016 12:00:00 AM EDT [facility] (Ammir Wilmar Physician) Name Value Range Interpretation Description Data Sup porting Code Source(s) Document(s ) FOLATE SERUM 21.6 Above high normal [facility] (A mmir ng/mL [place] Physician) VITAMIN B12 1124 Above high normal [facility] (Am maria guadalupe pg/mL [place] Physician) ID Date Data Source [id number] 06/24/2016 12:00:00 AM EDT [facility] (Ammir Wilmar Physician) Name Value Range Interpretation Description Data Sup porting Code Source(s) Document(s ) VITAMIN D 29.8 Normal (applies to [facility] (Amm ir 1.25 pg/mL non-numeric Wilmar results) Physician) ID Date Data Source [id number] 03/24/2016 12:00:00 AM EST [facility] (Ammir Wilmar Physician) Name Value Range Interpretation Code Description Data Supporting Source(s) Document(s ) MISSING Normal (applies to [facility] (Amm ir DIAGNOSIS non-numeric Wilmar results) Physician) ID Date Data Source [id number] 03/24/2016 12:00:00 AM EST [facility] (Ammir Wilmar Physician) Name Value Range Interpretation Description Data Sup porting Code Source(s) Document(s ) VITAMIN D-25 19.3 Below low normal [facility] (Am maria guadalupe HYDROXY ng/mL [place] Physician) ID Date Data Source [id number] 03/24/2016 12:00:00 AM EST [facility] (Ammir Wilmar Physician) Name Value Range Interpretation Description Data Sup porting Code Source(s) Document(s ) Thyroxine 1.25 Above high normal [facility] (Ammi r (T4) free ng/dL [place]mar [Mass/volume] Physician) in Serum or Plasma ID Date Data Source [id number] 03/24/2016 12:00:00 AM EST [facility] (Ammir Wilmar Physician) Name Value Range Interpretation Description Data Sup porting Code Source(s) Document(s ) Folate 13.2 ng/mL Normal (applies to [facility] (Am maria guadalupe [Interpreta non-numeric Wilmar tion] in results) Physician) Blood ID Date Data Source [id number] 03/24/2016 12:00:00 AM EST [facility] (Ammir Wilmar Physician) Name Value Range Interpretation Description Data Sup porting Code Source(s) Document(s ) VITAMIN B12 713 pg/mL Normal (applies to [facility] (A mmir non-numeric [place] results) Physician) ID Date Data Source [id number] 03/24/2016 12:00:00 AM EST [facility] (Ammir Wilmar Physician) Name Value Range Interpretation Description Data Sup porting Code Source(s) Document(s ) TSH 3RD 2.085 Normal (applies to [facility] GENERATION uIU/mL non-numeric (Ammir results) [place] Physician) ID Date Data Source [id number] 03/24/2016 12:00:00 AM EST [facility] (Ammir Wilmar Physician) Name Value Range Interpretation Code Description Data Ning rce(s) Supporting Document(s ) T3 UPTAKE 43.0 % Normal (applies to [facility] (Amm ir non-numeric results) [place] Physician) ID Date Data Source [id number] 03/24/2016 12:00:00 AM EST [facility] (Ammir Wilmar Physician) Name Value Range Interpretation Description Data Sup porting Code Source(s) Document(s ) Hemoglobin 5.3 % Normal (applies to [facility] (Am maria guadalupe A1c/Hemoglobin. non-numeric Wilmar total in Blood results) Physician) ID Date Data Source [id number] 03/24/2016 12:00:00 AM EST [facility] (Ammir Wilmar [...] results) [place] Physician) ID Date Data Source [id number] 03/24/2016 12:00:00 AM EST [facility] (Ammir Wilmar [...] results) [place]mar Physician) ID Date Data Source [id number] 03/24/2016 12:00:00 AM EST [facility] (Ammir Wilmar Physician) Name Value Range Interpretation Description Data Sup porting Code Source(s) Document(s ) WBC 8.4 Normal (applies [facility] 10^3/uL to non-numeric (Ammir results) [place] Physician) RBC 4.56 Normal (applies [facility] 10^6/uL to non-numeric (Ammir results) Wilamr Physician) Hemoglobin 14.4 g/dL Normal (applies [facility] [...] results) [place] Physician) ID Date Data Source [id number] 03/24/2016 12:00:00 AM EST [facility] (Ammir Wilmar Physician) Name Value Range Interpretation Code Description Data Supporting Source(s) Document(s ) MISSING Normal (applies to [facility] (Amm ir DIAGNOSIS non-numeric [place]mar results) Physician) ID Date Data Source [id number] 03/24/2016 12:00:00 AM EST [facility] (Ammir Wilmar Physician) Name Value Range Interpretation Description Data Sup porting Code Source(s) Document(s ) VITAMIN D-25 19.3 Below low normal [facility] (Am maria guadalupe HYDROXY ng/mL [place] Physician) ID Date Data Source [id number] 03/24/2016 12:00:00 AM EST [facility] (Ammir Wilmar Physician) Name Value Range Interpretation Description Data Sup porting Code Source(s) Document(s ) Thyroxine 1.25 Above high normal [facility] (Ammi r (T4) free ng/dL [place] [Mass/volume] Physician) in Serum or Plasma ID Date Data Source [id number] 03/24/2016 12:00:00 AM EST [facility] (Ammir Wilmar Physician) Name Value Range Interpretation Description Data Sup porting Code Source(s) Document(s ) Folate 13.2 ng/mL Normal (applies to [facility] (Am maria guadalupe [Interpreta non-numeric Wilmar tion] in results) Physician) Blood ID Date Data Source [id number] 03/24/2016 12:00:00 AM EST [facility] (Ammir Wilmar Physician) Name Value Range Interpretation Description Data Sup porting Code Source(s) Document(s ) VITAMIN B12 713 pg/mL Normal (applies to [facility] (A mmir non-numeric [place]mar results) Physician) ID Date Data Source [id number] 03/24/2016 12:00:00 AM EST [facility] (Ammir Wilmar Physician) Name Value Range Interpretation Description Data Sup porting Code Source(s) Document(s ) TSH 3RD 2.085 Normal (applies to [facility] GENERATION uIU/mL non-numeric (Ammir results) [place] Physician) ID Date Data Source [id number] 03/24/2016 12:00:00 AM EST [facility] (Ammir Wilmar Physician) Name Value Range Interpretation Code Description Data Ning rce(s) Supporting Document(s ) T3 UPTAKE 43.0 % Normal (applies to [facility] (Amm ir non-numeric results) [place] Physician) ID Date Data Source [id number] 03/24/2016 12:00:00 AM EST [facility] (Ammir Wilmar Physician) Name Value Range Interpretation Description Data Sup porting Code Source(s) Document(s ) Hemoglobin 5.3 % Normal (applies to [facility] (Am maria guadalupe A1c/Hemoglobin. non-numeric Wilmar total in Blood results) Physician) ID Date Data Source [id number] 03/24/2016 12:00:00 AM EST [facility] (Ammir Wilmar [...] results) [place] Physician) ID Date Data Source [id number] 03/24/2016 12:00:00 AM EST [facility] (Ammir Wilmar [...] results) [place] Physician) ID Date Data Source [id number] 03/24/2016 12:00:00 AM EST [facility] (Ammir Wilmar [...] [facility] to non-numeric (Ammir results) [place] Physician) BASOPHILS # 0.04 Normal (applies [facility] 10^3/uL to non-numeric (Ammir results) [place] Physician) ID Date Data Source [id number] 03/24/2016 12:00:00 AM EST [facility] (Ammir Wil[facility] Physician) Name Value Range Interpretation Code Description Data Supporting Source(s) Document(s ) MISSING Normal (applies to [facility] (Amm ir DIAGNOSIS non-numeric [place] results) Physician) ID Date Data Source [id number] 03/24/2016 12:00:00 AM EST [facility] (Ammir Wilmar Physician) Name Value Range Interpretation Description Data Sup porting Code Source(s) Document(s ) VITAMIN D-25 19.3 Below low normal [facility] (Am maria guadalupe HYDROXY ng/mL [place] Physician) ID Date Data Source [id number] 03/24/2016 12:00:00 AM EST [facility] (Ammir Wil[place] Physician) Name Value Range Interpretation Description Data Sup porting Code Source(s) Document(s ) Thyroxine 1.25 Above high normal [facility] (Ammi r (T4) free ng/dL [place] [Mass/volume] Physician) in Serum or Plasma ID Date Data Source [id number] 03/24/2016 12:00:00 AM EST [facility] (Ammir Wilmar Physician) Name Value Range Interpretation Description Data Sup porting Code Source(s) Document(s ) Folate 13.2 ng/mL Normal (applies to [facility] (Am maria guadalupe [Interpreta non-numeric [place]mar tion] in results) Physician) Blood ID Date Data Source [id number] 03/24/2016 12:00:00 AM EST [facility] (Ammir Wilmar Physician) Name Value Range Interpretation Description Data Sup porting Code Source(s) Document(s ) VITAMIN B12 713 pg/mL Normal (applies to [facility] (A mmir non-numeric [place] results) Physician) ID Date Data Source [id number] 03/24/2016 12:00:00 AM EST [facility] (Ammir Wilmar Physician) Name Value Range Interpretation Description Data Sup porting Code Source(s) Document(s ) TSH 3RD 2.085 Normal (applies to [facility] GENERATION uIU/mL non-numeric (Ammir results) [place] Physician) ID Date Data Source [id number] 03/24/2016 12:00:00 AM EST [facility] (Ammir Wilmar Physician) Name Value Range Interpretation Code Description Data Ning rce(s) Supporting Document(s ) T3 UPTAKE 43.0 % Normal (applies to [facility] (Amm ir non-numeric results) [place] Physician) ID Date Data Source [id number] 03/24/2016 12:00:00 AM EST [facility] (Ammir Wilmar Physician) Name Value Range Interpretation Description Data Sup porting Code Source(s) Document(s ) Hemoglobin 5.3 % Normal (applies to [facility] (Am maria guadalupe A1c/Hemoglobin. non-numeric [place] total in Blood results) Physician) ID Date Data Source [id number] 03/24/2016 12:00:00 AM EST [facility] (Ammir Wilmar [...] results) [place] Physician) ID Date Data Source [id number] 03/24/2016 12:00:00 AM EST [facility] (Ammir Wilmar [...] results) [place] Physician) ID Date Data Source [id number] 03/24/2016 12:00:00 AM EST [facility] (Ammir Wilmar [...] results) [place] Physician) ID Date Data Source [id number] 03/24/2016 12:00:00 AM EST [facility] (Ammir Wil[facility] Physician) Name Value Range Interpretation Code Description Data Supporting Source(s) Document(s ) MISSING Normal (applies to [facility] (Amm ir DIAGNOSIS non-numeric [place] results) Physician) ID Date Data Source [id number] 03/24/2016 12:00:00 AM EST [facility] (Ammir Wil[place] Physician) Name Value Range Interpretation Description Data Sup porting Code Source(s) Document(s ) VITAMIN D-25 19.3 Below low normal [facility] (Am maria guadalupe HYDROXY ng/mL [place] Physician) ID Date Data Source [id number] 03/24/2016 12:00:00 AM EST [facility] (Ammir [facility] Physician) Name Value Range Interpretation Description Data Sup porting Code Source(s) Document(s ) Thyroxine 1.25 Above high normal [facility] (Ammi r (T4) free ng/dL [place] [Mass/volume] Physician) in Serum or Plasma ID Date Data Source [id number] 03/24/2016 12:00:00 AM EST [facility] (Ammir [place] Physician) Name Value Range Interpretation Description Data Sup porting Code Source(s) Document(s ) Folate 13.2 ng/mL Normal (applies to [facility] (Am maria guadalupe [Interpreta non-numeric [place] tion] in results) Physician) Blood ID Date Data Source [id number] 03/24/2016 12:00:00 AM EST [facility] (Ammir [facility] Physician) Name Value Range Interpretation Description Data Sup porting Code Source(s) Document(s ) VITAMIN B12 713 pg/mL Normal (applies to [facility] (A mmir non-numeric [place] results) Physician) ID Date Data Source [id number] 03/24/2016 12:00:00 AM EST [facility] (Ammir [facility] Physician) Name Value Range Interpretation Description Data Sup porting Code Source(s) Document(s ) TSH 3RD 2.085 Normal (applies to [facility] GENERATION uIU/mL non-numeric (Ammir results) [place] Physician) ID Date Data Source [id number] 03/24/2016 12:00:00 AM EST [facility] (Ammir Wil[place] Physician) Name Value Range Interpretation Code Description Data Ning rce(s) Supporting Document(s ) T3 UPTAKE 43.0 % Normal (applies to [facility] (Amm ir non-numeric results) [place] Physician) ID Date Data Source [id number] 03/24/2016 12:00:00 AM EST [facility] (Ammir Wil[place] Physician) Name Value Range Interpretation Description Data Sup porting Code Source(s) Document(s ) Hemoglobin 5.3 % Normal (applies to [facility] (Am maria guadalupe A1c/Hemoglobin. non-numeric [place] total in Blood results) Physician) ID Date Data Source [id number] 03/24/2016 12:00:00 AM EST [facility] (Ammir Wilmar [...] results) [place] Physician) ID Date Data Source [id number] 03/24/2016 12:00:00 AM EST [facility] (Ammir Wilmar [...] results) [place] Physician) ID Date Data Source [id number] 03/24/2016 12:00:00 AM EST [facility] (Ammir [facility] Physician) Name Value Range Interpretation Description Data Sup porting Code Source(s) Document(s ) WBC 8.4 Normal (applies [facility] 10^3/uL to non-numeric (Ammir results) [place] Physician) RBC 4.56 Normal (applies [facility] 10^6/uL to non-numeric (Ammir results) [place] Physician) Hemoglobin 14.4 g/dL Normal (applies [facility] [Mass/volume] to non-numeric (Ammir in Mixed venous results) Wilamr blood by Physician) Oximetry Hematocrit 44 % [...] 98 % [facility] (Am maria guadalupe concentration [place] Physician) Body mass index 21.9 kg/m2 21.9 [...] height 62 in 62 in [facility] (Ammir Wilamr Physician) Heart rate 70 /min 70 /min [...] Physician) [facility] height 62 [facility]) Heart rate 68 /min [...] Physician) Body height 62 in 62 in [facility] Phys[facility]) Heart rate 68 /min [...] Physician) Body height 62 in 62 [facility] Phys[facility]) Heart rate 68 /min [...] 116 mm[Hg] 116 mm[Hg] [facility] (Am maria guadaluep pressure Wilmar Physician) Body weight 125 lb [...] mm[Hg] 68 mm[Hg] [facility] (A mmir pressure Wilmra Physician) Systolic blood 116 mm[Hg] 116 mm[Hg] [...] weight 125 lb 125 lb [facility] (Ammir Wilamr Physician) Heart rate 76 /min 76 /min [...] mm[Hg] 60 mm[Hg] [facility] (A mmir pressure Wilmra Physician) Systolic blood 100 mm[Hg] 100 mm[Hg] [...] 98 % [facility] (Am maria guadalupe concentration Wimlar Physician) Body mass index 22.3 kg/m2 22.3 [...] 110 mm[Hg] 110 mm[Hg] [facility] (Am maria gudaalupe pressure [place] Physician) Body weight 129 lb [...] 96 % 96 % [facility] (Am maria guadlaupe concentration [place] Physician) Body mass index 24.3 kg/m2 24.3 kg/m2 [facility] (A mmir (BMI) [Ratio] [place] Physician) Diastolic blood 68 mm[Hg] 68 mm[Hg] [facility] (A mmir pressure [place] Physician) Systolic blood 112 mm[Hg] 112 mm[Hg] [facility] (Am maria guadalupe pressure [place] Physician) Body weight 133 lb 133 lb [facility] (Ammir [place] Physician) Body height 62 in 62 in [facility] (Ammir Iwlmar Physician) Heart rate 70 /min 70 /min [...] 24.3 kg/m2 [facility] (A mmir (BMI) [Ratio] Iwlmar Physician) Diastolic blood 68 mm[Hg] 68 mm[Hg] [...] 130 mm[Hg] 130 mm[Hg] [facility] (Am maria guadaluep pressure [place] Physician) Body weight 136 lb [...] 116 mm[Hg] [facility] (Am maria guadalupe pressure Wimlar Physician) Heart rate 62 /min 62 /min [...]
--- NOTE | 2019-11-27 15:37 | PN ---
Progress Note (short form) - Note Progress Note: ID CONSULT DICTATED CELLULITIS/LYMPHANGITIS R UE OBTAIN C/S EMPIRIC CEFAZOLIN + STAT DOSE VANCOMYCIN ELEVATION
[2019-11-27] MEDS ORDERED: VANCOMYCIN 1 GRAM (PRE-DOCKED) 1,000 MG/250 ML BAG IVPB ONE ×2 (16:00→16:21)
[2019-11-27] MEDS ORDERED: CEFAZOLIN 1 GM/D5W 1 GM/50 ML BAG ONE (16:21)
[2019-11-27] MEDS ORDERED: WARFARIN NA 5 MG TABLET ONE (17:37)
[2019-11-27] MEDS ORDERED: WARFARIN NA 5 MG TABLET PO SCH (18:00)
--- NOTE | 2019-11-27 18:09 | CONS ---
DATE OF CONSULTATION: 11/27/2019 INFECTIOUS DISEASE CONSULTATION HISTORY OF PRESENT ILLNESS: The patient is an 89-year-old female who was evaluated for cellulitis of the right upper extremity. The patient states that she awoke from sleep on Wednesday, November 25, 2019, with swelling, erythema, warmth and tenderness of her right upper extremity. She does not remember laying on that hand, nor does she remember any insect or animal bites or scratches. She has a cat at home, however she denies any cat scratches or bites. She was evaluated in the emergency room, where she was found to have confluent erythema involving the right hand. It is swollen and warm, tender to touch. She denies any associated fever or chills. There is no skin breakage. She denies prior history of serious soft tissue infection requiring hospitalization. She has had no history of multidrug resistant organisms. PAST MEDICAL HISTORY: Positive for atrial fibrillation, hyperlipidemia, total hip replacement. ALLERGIES: No known allergies. MEDICATION: Include Clindamycin. SOCIAL HISTORY: She resides in the community. She has had recent hospital visits. She is a nonsmoker, nondrinker. SYSTEMS REVIEW: Neurologic: Negative for loss of consciousness, seizure activity, focal weakness. Cardiac: Positive atrial fibrillation. Respiratory: Negative for cough or sputum production. Gastrointestinal: Negative vomiting or diarrhea. Genitourinary: Negative for urinary tract infection. LABORATORY DATA: White count 8.6, hemoglobin 36.7, platelet count 203, creatinine 0.9. Chemistries: BUN 12, creatinine 0.9, total bilirubin 2.4, alkaline phosphatase 105, AST 17, C-reactive protein 10.5, ESR 2. Cultures have not been obtained. Urinalysis: 137 white cells. COVID-19 pending. PHYSICAL EXAMINATION: General: On examination she is awake and alert, in no acute distress. Vital signs: Temperature 97.3, blood pressure 116/41, pulse 62 regular, respirations 18 per minute. HEENT: Sclerae anicteric. Cardiovascular: Heart sounds S1, S2. Irregular. Lungs: Clear bilaterally. Abdomen: Soft, nontender. Extremities: 1+ pedal edema. Examination of the right hand, there is swelling of the dorsum of the right hand especially the radial aspect expending from the dorsum of the thumb to the wrist area. The erythema and swelling appear to track up the ventral aspect of the forearm to the elbow. There is no epitrochlear or axillary adenopathy palpable. No palpable cord. No crepitus or fluctuance. IMPRESSION: 1. Cellulitis/lymphangitis, right upper extremity. 2. Rule out sepsis secondary to skin source. Obtain blood cultures. Elevation. Empiric antibiotic coverage with cephazolin 1 g IV piggyback every 8 hours. Will give stat vancomycin for additional staphylococcus coverage pending cultures. Elevation, analgesics, will follow. Thank you for the kind referral. SARAH LÓPEZ M.D. [id number]
[2019-11-27] MEDS: CEFAZOLIN 1 GM in DEXTROSE 5%-WATER - 50 ML IVPB SCH (18:37)
[2019-11-27 19:23] LABS: EPI CELLS 32 /uL (0-25.1); HYALINE CASTS 1 /uL (0-3.1); URINE APPEARANCE CLEAR; URINE BACTERIA 112 /uL (0-1359); URINE BILIRUBIN NEGATIVE (NEGATIVE); URINE COLOR YELLOW; URINE GLUCOSE (UA) NEGATIVE (NEGATIVE); URINE KETONE NEGATIVE (NEGATIVE); URINE LEUK ESTERASE 1+ (NEGATIVE); URINE NITRITE NEGATIVE (NEGATIVE); URINE PROTEIN NEGATIVE (NEGATIVE); URINE RBC 15 /uL (0-23.9); URINE UROBILINOGEN 0.2 mg/dL (0.2-1.0); URINE WBC 29 /uL (0-25.8)
[2019-11-28] MEDS ORDERED: CEFAZOLIN 1 GM/D5W 1 GM/50 ML BAG ONE (03:26)
[2019-11-28] MEDS: CEFAZOLIN 1 GM in DEXTROSE 5%-WATER - 50 ML IVPB SCH ×3 (03:52→17:44)
[2019-11-28 06:55] LABS: PROTHROMBIN TIME (PATIENT) 58.2 SEC (9.7-13.0)
[2019-11-28 07:11] LABS: BASO % 0.8 % (0-2.0); EOS % 1.7 % (0-4.5); HEMATOCRIT 38.1 % (32.4-45.2); HEMOGLOBIN 12.8 GM/dL (10.7-15.3); LYMPH % 24.9 % (8-40); MCH 30.2 pg (25.7-33.7); MCHC 33.5 g/dl (32.0-36.0); MEAN CELL VOLUME 90.2 fl (80-96); MEAN PLT VOLUME 9.5 fl (7.5-11.1); MONO % 10.8 % (3.8-10.2); NEUT % 61.8 % (42.8-82.8); PLATELET COUNT 185 K/MM3 (134-434); RBC 4.23 M/mm3 (3.60-5.2); WHITE BLOOD COUNT 6.5 K/mm3 (4.0-10.0)
[2019-11-28 07:20] LABS: ALBUMIN 3.2 g/dl (3.4-5.0); BILIRUBIN,TOTAL 1.8 mg/dL (0.2-1); BLOOD UREA NITROGEN 6.8 mg/dL (7-18); CALCIUM 8.7 mg/dL (8.5-10.1); CREATININE 0.8 mg/dL (0.55-1.3); POTASSIUM 3.6 mmol/L (3.5-5.1); TOT PROT 6.5 g/dl (6.4-8.2)
[2019-11-28 09:24] LABS: INR 4.85 (0.83-1.09)
[2019-11-28] MEDS ORDERED: DEXTROSE 5%-WATER - 50 ML IVPB ONE ×2 (10:26→17:41)
[2019-11-28] MEDS ORDERED: ceFAZolin SODIUM 1 GM VIAL ONE ×2 (10:26→17:41)
[2019-11-28] MEDS: PANTOPRAZOLE 40 MG TABLET PO SCH (10:42)
[2019-11-28] MEDS: AMIODARONE HCL 200 MG TABLET PO SCH (10:42)
[2019-11-28 11:37] VITALS: BMI 21.5
--- NOTE | 2019-11-28 17:21 | HP ---
Admitting History and Physical - Admission History of Present Illness: 89 y.o. F PMHx HLD, A-fib on warfarin presenting due to R hand swelling and redness. Patient stated she woke up on Wednesday morning with her R hand swollen, red and warm to the touch. The swelling was predominately on the dorsal aspect of the hand that has since progressed to the palmar aspect and wrist. Patient states she does not remember getting bit by any insects or have any skin tears. Patient denies headache, chills, n/v or pain in the area. - Past Medical History Cardiovascular: Yes: AFIB, HTN, Hyperlipdemia Gastrointestinal: Yes: GERD ...: No - Past Surgical History Past Surgical History: Yes: Joint Replacement - Smoking History Smoking history: Former smoker Have you smoked in the past 12 months: No Aproximately how many cigarettes per day: 10 If you are a former smoker, when did you quit?: 01/23 - Alcohol/Substance Use Hx Alcohol Use: No History of Substance Use: reports: None - Social History ADL: Independent History of Recent Travel: No Home Medications - Allergies Allergies/Adverse Reactions: Allergies Allergy/AdvReac Type Severity Reaction Status Date / Time No Known Drug Allergies Allergy Verified 11/27/19 06:31 - Home Medications Home Medications: Ambulatory Orders Warfarin Na [Coumadin -] 5 mg PO DAILY@1800 04/30/19 Amiodarone HCl [Cordarone -] 200 mg PO DAILY tablet 05/04/19 traMADol HCL [Ultram -] 50 mg PO BID PRN 09/09/19 Pantoprazole Sodium [Protonix -] 40 mg PO DAILY #30 tablet.ec 09/12/19 Rosuvastatin Calcium [Crestor] 5 mg PO HS #30 tablet 11/07/19 Gabapentin 100 mg PO DAILY 11/28/19 Metoprolol Tartrate [Lopressor -] 12.5 mg PO DAILY 11/28/19 Review of Systems - Review of Systems Cardiovascular: reports: No Symptoms Respiratory: reports: No Symptoms Integumentary: reports: Erythema Physical Examination Vital Signs: Vital Signs Temperature 98.4 F 11/28/19 17:04 Pulse Rate 85 11/28/19 17:04 Respiratory Rate 20 11/28/19 17:04 Blood Pressure 133/59 L 11/28/19 17:04 O2 Sat by Pulse Oximetry (%) 97 11/28/19 17:04 Cardiovascular: Yes: S1, S2 Respiratory: Yes: Regular, CTA Bilaterally Gastrointestinal: Yes: Normal Bowel Sounds, Soft Edema: Yes Edema: RUE: 1+ Wound/Incision: Yes: Reddened Labs: CBC, BMP 11/28/19 06:05 11/28/19 06:05 Problem List - Problems (1) Cellulitis Assessment/Plan: IV ABX PER ID WBBC NL Code(s): L03.90 - CELLULITIS, UNSPECIFIED Qualifiers: Site of cellulitis: extremity Site of cellulitis of extremity: upper extremity Laterality: right Qualified Code(s): L03.113 - Cellulitis of right upper limb (2) Afib Assessment/Plan: HOLD COUMADIN INR Am Code(s): I48.91 - UNSPECIFIED ATRIAL FIBRILLATION Qualifiers: Atrial fibrillation type: unspecified Qualified Code(s): I48.91 - Unspecified atrial fibrillation (3) HTN (hypertension) Assessment/Plan: monitor bp Code(s): I10 - ESSENTIAL (PRIMARY) HYPERTENSION
[2019-11-28] MEDS ORDERED: MAGNESIUM HYDROX 2400MG/30ML ORAL SUSPENSION 30 ML CUP PO PRN (20:55)
[2019-11-28] MEDS: ROSUVASTATIN CA 5 MG TABLET (FP) PO SCH ×2 (21:30)
[2019-11-28] MEDS: SENNOSIDES 8.6MG TABLET (FP) PO SCH (21:30)
[2019-11-28] MEDS: DOCUSATE SODIUM 100 MG CAPSULE (FP) PO SCH (21:30)
--- NOTE | 2019-11-28 21:37 | PN ---
Progress Note, Physician Chief Complaint: NO C/O R HAND PAIN REPORTS DECREASED SWELLING/ ERYTHEMA NO C/O F/C - Current Medication List Current Medications: Active Medications Amiodarone HCl (Cordarone -) 200 mg PO DAILY [facility] Last Admin: 11/28/19 10:42 Dose: 200 mg Documented by: Docusate Sodium (Colace -) 100 mg PO TID [facility] Last Admin: 11/28/19 21:30 Dose: 100 mg Documented by: Cefazolin Sodium 1 gm/ (Dextrose) 50 mls @ 100 mls/hr IVPB Q8H-IV [facility] Last Admin: 11/28/19 17:44 Dose: 100 mls/hr Documented by: Magnesium Hydroxide (Milk Of Magnesia -) 30 ml PO PRN PRN PRN Reason: CONSTIPATION Pantoprazole Sodium (Protonix -) 40 mg PO DAILY [facility] Last Admin: 11/28/19 10:42 Dose: 40 mg Documented by: Rosuvastatin Calcium (Crestor -) 5 mg PO [facility] Last Admin: 11/28/19 21:30 Dose: 5 mg Documented by: Senna (Senna -) 1 tab PO [facility] Last Admin: 11/28/19 21:30 Dose: 1 tab Documented by: Tramadol HCl (Ultram -) 50 mg PO BID PRN PRN Reason: PAIN Warfarin Sodium (Coumadin -) 5 mg PO DAILY@1800 [facility] Last Admin: 11/27/19 18:37 Dose: 5 mg Documented by: - Objective Vital Signs: Vital Signs Temperature 99.5 F 11/28/19 20:26 Pulse Rate 81 11/28/19 20:26 Respiratory Rate 20 11/28/19 20:26 Blood Pressure 158/72 11/28/19 20:26 O2 Sat by Pulse Oximetry (%) 96 11/28/19 20:30 Constitutional: Yes: No Distress Eyes: Yes: Conjunctiva Clear Cardiovascular: Yes: Regular Rate and Rhythm, S1, S2 Respiratory: Yes: CTA Bilaterally Gastrointestinal: Yes: Normal Bowel Sounds, Soft Extremities: Yes: Other (DECREASED R HAND/ UE ERYTHEMA/WARMTH/ SWELLING) Labs: CBC, BMP 11/28/19 06:05 11/28/19 06:05 INR, PTT INR 4.85 (0.83-1.09) H* 11/28/19 06:05 Assessment/Plan CELLUILITIS/ LYMPHNGITIS R UE IMPROVED CONTINUE CEFZOLIN, ELEVATION
[2019-11-29] MEDS ORDERED: ceFAZolin SODIUM 1 GM VIAL ONE ×3 (01:38→18:12)
[2019-11-29] MEDS ORDERED: DEXTROSE 5%-WATER - 50 ML IVPB ONE ×3 (01:38→18:12)
[2019-11-29] MEDS: CEFAZOLIN 1 GM in DEXTROSE 5%-WATER - 50 ML IVPB SCH ×3 (01:51→18:22)
[2019-11-29] MEDS: DOCUSATE SODIUM 100 MG CAPSULE (FP) PO SCH ×3 (06:04→21:41)
--- NOTE | 2019-11-29 07:43 | PN ---
Progress Note, Physician Chief Complaint: AWAKE ALERT EVENTS AND NOTES REVIEWED DENIES FEVER AND CHILLS - Current Medication List Current Medications: Active Medications Amiodarone HCl (Cordarone -) 200 mg PO DAILY [facility] Last Admin: 11/28/19 10:42 Dose: 200 mg Documented by: Docusate Sodium (Colace -) 100 mg PO TID [facility] Last Admin: 11/29/19 06:04 Dose: Not Given Documented by: Cefazolin Sodium 1 gm/ (Dextrose) 50 mls @ 100 mls/hr IVPB Q8H-IV [facility] Last Admin: 11/29/19 01:51 Dose: 100 mls/hr Documented by: Magnesium Hydroxide (Milk Of Magnesia -) 30 ml PO PRN PRN PRN Reason: CONSTIPATION Pantoprazole Sodium (Protonix -) 40 mg PO DAILY [facility] Last Admin: 11/28/19 10:42 Dose: 40 mg Documented by: Rosuvastatin Calcium (Crestor -) [address] [facility] Last Admin: 11/28/19 21:30 Dose: 5 mg Documented by: Senna (Senna -) [address] [facility] Last Admin: 11/28/19 21:30 Dose: 1 tab Documented by: Tramadol HCl (Ultram -) 50 mg PO BID PRN PRN Reason: PAIN Warfarin Sodium (Coumadin -) 5 mg PO DAILY@1800 [facility] Last Admin: 11/27/19 18:37 Dose: 5 mg Documented by: - Objective Vital Signs: Vital Signs Temperature 99.7 F H 11/29/19 06:00 Pulse Rate 80 11/29/19 06:00 Respiratory Rate 20 11/29/19 06:00 Blood Pressure 144/69 11/29/19 06:00 O2 Sat by Pulse Oximetry (%) 92 L 11/29/19 06:00 Constitutional: Yes: Mild Distress Cardiovascular: Yes: Pulse Irregular Respiratory: Yes: CTA Bilaterally Gastrointestinal: Yes: Soft Musculoskeletal: Yes: Joint Stiffness, Joint Swelling (RIGHT ELBOW) Integumentary: Yes: Erythema Neurological: Yes: Pre-Existing Deficit Labs: CBC, BMP 11/28/19 06:05 INR, PTT INR 4.85 (0.83-1.09) H* 11/28/19 06:05 Problem List - Problems (1) Elbow pain, right Code(s): M25.521 - PAIN IN RIGHT ELBOW (2) Cellulitis Code(s): L03.90 - CELLULITIS, UNSPECIFIED Qualifiers: Site of cellulitis: extremity Site of cellulitis of extremity: upper extremity Laterality: right Qualified Code(s): L03.113 - Cellulitis of right upper limb (3) Abnormal INR Code(s): R79.1 - ABNORMAL COAGULATION PROFILE (4) Afib Code(s): I48.91 - UNSPECIFIED ATRIAL FIBRILLATION Qualifiers: Atrial fibrillation type: unspecified Qualified Code(s): I48.91 - Unspecified atrial fibrillation (5) Atrial fibrillation with RVR Code(s): I48.91 - UNSPECIFIED ATRIAL FIBRILLATION (6) HLD (hyperlipidemia) Code(s): E78.5 - HYPERLIPIDEMIA, UNSPECIFIED (7) HTN (hypertension) Code(s): I10 - ESSENTIAL (PRIMARY) HYPERTENSION (8) Osteoarthritis Code(s): M19.90 - UNSPECIFIED OSTEOARTHRITIS, UNSPECIFIED SITE Assessment/Plan RIGHT ELBOW XRAY ORDERED ICE/VOLTAREN ABX PER ID AWAIT CULTURES HOLD AC
[2019-11-29 08:29] LABS: CALCIUM 8.6 mg/dL (8.5-10.1); CREATININE 0.7 mg/dL (0.55-1.3); POTASSIUM 3.4 mmol/L (3.5-5.1)
[2019-11-29] MEDS ORDERED: POTASSIUM CHLORIDE TABS 10 MEQ TABLET.ER (FP) PO ONE (08:45)
[2019-11-29 08:55] LABS: INR 4.26 (0.83-1.09)
[2019-11-29] MEDS: AMIODARONE HCL 200 MG TABLET PO SCH (10:30)
[2019-11-29] MEDS: PANTOPRAZOLE 40 MG TABLET PO SCH (10:31)
--- NOTE | 2019-11-29 13:08 | CON.ORTH ---
Consult Reason for Consultation:: right hand and elbow cellulitis - Past Medical History Cardio/Vascular: Yes: AFIB, HTN, Hyperlipdemia Gastrointestinal: Yes: GERD ...: No - Past Surgical History Past Surgical History: Yes: Joint Replacement - Alcohol/Substance Use Hx Alcohol Use: No History of Substance Use: reports: None - Smoking History Smoking history: Former smoker Have you smoked in the past 12 months: No Aproximately how many cigarettes per day: 10 If you are a former smoker, when did you quit?: 01/23 - Social History Usual Living Arrangement: Alone ADL: Independent History of Recent Travel: No Home Medications - Allergies Allergies/Adverse Reactions: Allergies Allergy/AdvReac Type Severity Reaction Status Date / Time No Known Drug Allergies Allergy Verified 11/27/19 06:31 - Home Medications Home Medications: Ambulatory Orders Warfarin Na [Coumadin -] 5 mg PO DAILY@1800 04/30/19 Amiodarone HCl [Cordarone -] 200 mg PO DAILY tablet 05/04/19 traMADol HCL [Ultram -] 50 mg PO BID PRN 09/09/19 Pantoprazole Sodium [Protonix -] 40 mg PO DAILY #30 tablet.ec 09/12/19 Rosuvastatin Calcium [Crestor] 5 mg PO HS #30 tablet 11/07/19 Gabapentin 100 mg PO DAILY 11/28/19 Metoprolol Tartrate [Lopressor -] 12.5 mg PO DAILY 11/28/19 Physical Exam for Ortho Vital Signs: Vital Signs Temperature 99.7 F H 11/29/19 06:00 Pulse Rate 80 11/29/19 06:00 Respiratory Rate 20 11/29/19 06:00 Blood Pressure 144/69 11/29/19 06:00 O2 Sat by Pulse Oximetry (%) 92 L 11/29/19 06:00 Labs: CBC, BMP 11/28/19 06:05 11/29/19 06:50 INR, PTT INR 4.26 (0.83-1.09) H* 11/29/19 06:50 - Upper Extremity Elbow: Yes: Right, Erythema, Pain, Swelling, Tenderness, Other (rom 0-120, nvi) Hand: Yes: Right, Erythema, Pain, Swelling, Tenderness, Other (right hand- + swelling, + erythema, diffuse ttp, decr rom, nvi) Imaging - Results X-ray: Report Reviewed, Image Reviewed Assessment/Plan 89 y.o. F PMHx HLD, A-fib on warfarin presenting due to R hand swelling and redness. Patient stated she woke up on Wednesday morning with her R hand swollen, red and warm to the touch. The swelling was predominately on the dorsal aspect of the hand that has since progressed to the palmar aspect and wrist. Patient states she does not remember getting bit by any insects or have any skin tears. Patient denies headache, chills, n/v or pain in the area. She notes that the pain and redness in her hand has improved but has since moved to her elbow as well. Pts INR is also over 4. a/p right hand and elbow cellulitis IV abx as per ID ROM exercises warm soaks/packs hold AC until INR therapeutic will follow d/w Dr. Sparks
--- NOTE | 2019-11-29 15:35 | PN ---
Progress Note, Physician Chief Complaint: REPORTS LESS SWELLING AND ERYTHEMA R HAND, BUT INCREASED PAIN ELBOW/ FOREARM SHE BELIEVES SHE MAY HAVE SLEPT ON THAT HAND NO C/O R HAND PAIN NO C/O F/C - Current Medication List Current Medications: Active Medications Amiodarone HCl (Cordarone -) 200 mg PO DAILY [facility] Last Admin: 11/29/19 10:30 Dose: 200 mg Documented by: Docusate Sodium (Colace -) 100 mg PO TID [facility] Last Admin: 11/29/19 14:10 Dose: Not Given Documented by: Cefazolin Sodium 1 gm/ (Dextrose) 50 mls @ 100 mls/hr IVPB Q8H-IV [facility] Last Admin: 11/29/19 10:31 Dose: 100 mls/hr Documented by: Magnesium Hydroxide (Milk Of Magnesia -) 30 ml PO PRN PRN PRN Reason: CONSTIPATION Pantoprazole Sodium (Protonix -) 40 mg PO DAILY [facility] Last Admin: 11/29/19 10:31 Dose: 40 mg Documented by: Rosuvastatin Calcium (Crestor -) 5 mg PO [facility] Last Admin: 11/28/19 21:30 Dose: 5 mg Documented by: Senna (Senna -) 1 tab PO [facility] Last Admin: 11/28/19 21:30 Dose: 1 tab Documented by: Tramadol HCl (Ultram -) 50 mg PO BID PRN PRN Reason: PAIN Warfarin Sodium (Coumadin -) 5 mg PO DAILY@1800 [facility] Last Admin: 11/27/19 18:37 Dose: 5 mg Documented by: - Objective Vital Signs: Vital Signs Temperature 100.4 F H 11/29/19 14:00 Pulse Rate 80 11/29/19 14:00 Respiratory Rate 20 11/29/19 14:00 Blood Pressure 133/65 11/29/19 14:00 O2 Sat by Pulse Oximetry (%) 91 L 11/29/19 14:00 Constitutional: Yes: No Distress Eyes: Yes: Conjunctiva Clear Cardiovascular: Yes: Regular Rate and Rhythm, S1, S2 Respiratory: Yes: CTA Bilaterally Gastrointestinal: Yes: Normal Bowel Sounds, Soft. No: Tenderness Extremities: Yes: Other (DECREASED R HAND/ WRIST ERYTHEMA/ WARMTH + R ELBOW ERYTHEMA) Labs: CBC, BMP 11/28/19 06:05 11/29/19 06:50 INR, PTT INR 4.26 (0.83-1.09) H* 11/29/19 06:50 Assessment/Plan CELLUILITIS/ LYMPHNGITIS R UE IMPROVED R ELBOW ERYTHEMA/ SWELLING CONTINUE CEFZOLIN, ELEVATION ORTHO CONSULT APPRECIATED
[2019-11-29] MEDS ORDERED: ACETAMINOPHEN 325 MG TABLET (FP) PO PRN (19:48)
[2019-11-29] MEDS: traMADol HCL 50 MG TABLET PO PRN (21:36)
[2019-11-29] MEDS: SENNOSIDES 8.6MG TABLET (FP) PO SCH (21:41)
[2019-11-29] MEDS: ROSUVASTATIN CA 5 MG TABLET (FP) PO SCH (21:41)
[2019-11-30] MEDS ORDERED: ceFAZolin SODIUM 1 GM VIAL ONE ×3 (01:26→17:26)
[2019-11-30] MEDS ORDERED: DEXTROSE 5%-WATER - 50 ML IVPB ONE ×3 (01:26→17:26)
[2019-11-30] MEDS: CEFAZOLIN 1 GM in DEXTROSE 5%-WATER - 50 ML IVPB SCH ×3 (02:03→17:36)
[2019-11-30] MEDS: DOCUSATE SODIUM 100 MG CAPSULE (FP) PO SCH ×3 (06:09→21:07)
--- NOTE | 2019-11-30 07:23 | PN ---
Progress Note, Physician Chief Complaint: AWAKE ALERT RIGHT ELBOW STILL PAINFUL - Current Medication List Current Medications: Active Medications Acetaminophen (Tylenol -) 650 mg PO Q6H PRN PRN Reason: FEVER Last Admin: 11/29/19 22:35 Dose: 650 mg Documented by: Amiodarone HCl (Cordarone -) 200 mg PO DAILY [facility] Last Admin: 11/29/19 10:30 Dose: 200 mg Documented by: Docusate Sodium (Colace -) 100 mg PO TID [facility] Last Admin: 11/30/19 06:09 Dose: Not Given Documented by: Cefazolin Sodium 1 gm/ (Dextrose) 50 mls @ 100 mls/hr IVPB Q8H-IV [facility] Last Admin: 11/30/19 02:03 Dose: 100 mls/hr Documented by: Magnesium Hydroxide (Milk Of Magnesia -) 30 ml PO PRN PRN PRN Reason: CONSTIPATION Pantoprazole Sodium (Protonix -) 40 mg PO DAILY [facility] Last Admin: 11/29/19 10:31 Dose: 40 mg Documented by: Rosuvastatin Calcium (Crestor -) 5 mg PO [facility] Last Admin: 11/29/19 21:41 Dose: 5 mg Documented by: Senna (Senna -) 1 tab PO [facility] Last Admin: 11/29/19 21:41 Dose: Not Given Documented by: Tramadol HCl (Ultram -) 50 mg PO BID PRN PRN Reason: PAIN Last Admin: 11/29/19 21:36 Dose: 50 mg Documented by: Warfarin Sodium (Coumadin -) 5 mg PO DAILY@1800 [facility] Last Admin: 11/27/19 18:37 Dose: 5 mg Documented by: - Objective Vital Signs: Vital Signs Temperature 98.4 F 11/30/19 06:00 Pulse Rate 69 11/30/19 06:00 Respiratory Rate 20 11/30/19 06:00 Blood Pressure 113/64 11/30/19 06:00 O2 Sat by Pulse Oximetry (%) 96 11/30/19 06:00 Constitutional: Yes: Mild Distress Cardiovascular: Yes: Pulse Irregular Respiratory: Yes: WNL Gastrointestinal: Yes: WNL Genitourinary: Yes: WNL Musculoskeletal: Yes: Joint Stiffness, Joint Swelling (RIGHT ELBOW) Edema: Yes Integumentary: Yes: Erythema Neurological: Yes: WNL, Pre-Existing Deficit, Unsteady Gait ...Motor Strength: LLE, RLE Labs: CBC, BMP 11/28/19 06:05 11/29/19 06:50 INR, PTT INR 4.26 (0.83-1.09) H* 11/29/19 06:50 Problem List - Problems (1) Elbow pain, right Code(s): M25.521 - PAIN IN RIGHT ELBOW (2) Cellulitis Code(s): L03.90 - CELLULITIS, UNSPECIFIED Qualifiers: Site of cellulitis: extremity Site of cellulitis of extremity: upper extremity Laterality: right Qualified Code(s): L03.113 - Cellulitis of right upper limb (3) Abnormal INR Code(s): R79.1 - ABNORMAL COAGULATION PROFILE (4) Afib Code(s): I48.91 - UNSPECIFIED ATRIAL FIBRILLATION Qualifiers: Atrial fibrillation type: unspecified Qualified Code(s): I48.91 - Unspecified atrial fibrillation (5) Atrial fibrillation with RVR Code(s): I48.91 - UNSPECIFIED ATRIAL FIBRILLATION (6) HLD (hyperlipidemia) Code(s): E78.5 - HYPERLIPIDEMIA, UNSPECIFIED (7) HTN (hypertension) Code(s): I10 - ESSENTIAL (PRIMARY) HYPERTENSION (8) Osteoarthritis Code(s): M19.90 - UNSPECIFIED OSTEOARTHRITIS, UNSPECIFIED SITE Assessment/Plan RIGHT ELBOW XRAY ORDERED NO FRACTURE ORTHOPEDIC F/U LIKELY CELLULTITIS VS HEMOARTHROSIS ICE/VOLTAREN/HEATPACKS ABX PER ID AWAIT CULTURES HOLD AC
[2019-11-30 08:08] LABS: INR 2.78 (0.83-1.09); PROTHROMBIN TIME (PATIENT) 33.1 SEC (9.7-13.0)
[2019-11-30 08:20] LABS: HEMATOCRIT 36.1 % (32.4-45.2); HEMOGLOBIN 12.3 GM/dL (10.7-15.3); MCH 30.9 pg (25.7-33.7); MCHC 34.2 g/dl (32.0-36.0); MEAN CELL VOLUME 90.2 fl (80-96); MEAN PLT VOLUME 9.1 fl (7.5-11.1); PLATELET COUNT 207 K/MM3 (134-434); RDW 15.9 % (11.6-15.6); WHITE BLOOD COUNT 6.8 K/mm3 (4.0-10.0)
[2019-11-30 08:26] LABS: BLOOD UREA NITROGEN 9.9 mg/dL (7-18); CALCIUM 8.4 mg/dL (8.5-10.1); CREATININE 0.7 mg/dL (0.55-1.3); MAGNESIUM 1.9 mg/dL (1.8-2.4); POTASSIUM 3.6 mmol/L (3.5-5.1)
--- NOTE | 2019-11-30 08:48 | PN ---
Progress Note (short form) - Note Progress Note: Ortho Pt seen and examined. Pt feeling much better. Selected Entries 11/30/19 06:00 Temperature 98.4 F Pulse Rate 69 Respiratory 20 Rate Blood Pressure 113/64 Laboratory Tests 11/30/19 11/30/19 07:10 07:15 WBC 6.8 Hgb 12.3 Hct 36.1 Plt Count 207 INR 2.78 H right hand/elbow- decr erythema, decr swelling, decr pain, incr rom, nvi a/p Abx as per ID INR trending down ROM exercises heat packs ok to d/c from ortho pov pending ID/med d/w Dr. Sparks
[2019-11-30] MEDS: PANTOPRAZOLE 40 MG TABLET PO SCH (09:59)
[2019-11-30] MEDS: AMIODARONE HCL 200 MG TABLET PO SCH (09:59)
[2019-11-30] MEDS: WARFARIN NA 5 MG TABLET PO SCH ×2 (18:17→18:18)
[2019-11-30] MEDS: traMADol HCL 50 MG TABLET PO PRN (21:05)
[2019-11-30] MEDS: ROSUVASTATIN CA 5 MG TABLET (FP) PO SCH (21:05)
[2019-11-30] MEDS: SENNOSIDES 8.6MG TABLET (FP) PO SCH (21:08)
--- NOTE | 2019-11-30 22:13 | PN ---
Progress Note, Physician Chief Complaint: REPORTS LESS SWELLING AND ERYTHEMA R HAND NO C/O ELBOW/ FOREARM PAIN SHE BELIEVES SHE MAY HAVE SLEPT ON THAT HAND NO C/O R HAND PAIN NO C/O F/C - Current Medication List Current Medications: Active Medications Acetaminophen (Tylenol -) 650 mg PO Q6H PRN PRN Reason: FEVER Last Admin: 11/29/19 22:35 Dose: 650 mg Documented by: Amiodarone HCl (Cordarone -) 200 mg PO DAILY [facility] Last Admin: 11/30/19 09:59 Dose: 200 mg Documented by: Docusate Sodium (Colace -) 100 mg PO TID [facility] Last Admin: 11/30/19 21:07 Dose: Not Given Documented by: Cefazolin Sodium 1 gm/ (Dextrose) 50 mls @ 100 mls/hr IVPB Q8H-IV [facility] Last Admin: 11/30/19 17:36 Dose: 100 mls/hr Documented by: Magnesium Hydroxide (Milk Of Magnesia -) 30 ml PO PRN PRN PRN Reason: CONSTIPATION Pantoprazole Sodium (Protonix -) 40 mg PO DAILY [facility] Last Admin: 11/30/19 09:59 Dose: 40 mg Documented by: Rosuvastatin Calcium (Crestor -) 5 mg PO [facility] Last Admin: 11/30/19 21:05 Dose: 5 mg Documented by: Senna (Senna -) 1 tab PO [facility] Last Admin: 11/30/19 21:08 Dose: Not Given Documented by: Tramadol HCl (Ultram -) 50 mg PO BID PRN PRN Reason: PAIN Last Admin: 11/30/19 21:05 Dose: 50 mg Documented by: Warfarin Sodium (Coumadin -) 5 mg PO DAILY@1800 [facility] Last Admin: 11/30/19 18:18 Dose: 5 mg Documented by: - Objective Vital Signs: Vital Signs Temperature 98.7 F 11/30/19 18:12 Pulse Rate 68 11/30/19 18:12 Respiratory Rate 11/30/19 18:12 Blood Pressure 142/75 11/30/19 18:12 O2 Sat by Pulse Oximetry (%) 95 11/30/19 18:12 Constitutional: Yes: No Distress Eyes: Yes: Conjunctiva Clear Cardiovascular: Yes: Regular Rate and Rhythm, S1, S2 Extremities: Yes: Other (ERYTHEMA, R HAND/ WRIST/ ELBOW NEARLY ALL RESOLVED) Labs: CBC, BMP 11/30/19 07:15 11/30/19 07:10 INR, PTT INR 2.78 (0.83-1.09) H 11/30/19 07:10 Assessment/Plan CELLUILITIS/ LYMPHNGITIS R UE IMPROVED R ELBOW ERYTHEMA/ SWELLING IMPROVED CONTINUE CEFZOLIN, ELEVATION ORTHO CONSULT APPRECIATED SWITCH TO PO NEXT 24HR
[2019-12-01] MEDS ORDERED: DEXTROSE 5%-WATER - 50 ML IVPB ONE ×2 (01:07→09:46)
[2019-12-01] MEDS ORDERED: ceFAZolin SODIUM 1 GM VIAL ONE ×2 (01:07→09:46)
[2019-12-01] MEDS: CEFAZOLIN 1 GM in DEXTROSE 5%-WATER - 50 ML IVPB SCH ×2 (01:38→09:48)
[2019-12-01] MEDS: DOCUSATE SODIUM 100 MG CAPSULE (FP) PO SCH ×2 (05:48→13:40)
--- NOTE | 2019-12-01 07:04 | DS ---
Physical Examination Vital Signs: Vital Signs Temperature 98.2 F 12/01/19 05:47 Pulse Rate 75 12/01/19 05:47 Respiratory Rate 20 12/01/19 05:47 Blood Pressure 148/67 12/01/19 05:47 O2 Sat by Pulse Oximetry (%) 94 L 11/30/19 22:00 Findings/Remarks: C/O RIGHT SHOULDER PAIN DECREASE ROM Constitutional: Yes: Mild Distress Cardiovascular: Yes: Pulse Irregular Respiratory: Yes: WNL Gastrointestinal: Yes: WNL Renal/: Yes: WNL Musculoskeletal: Yes: Joint Stiffness, Muscle Pain, Muscle Weakness Extremities: Yes: Other (RIGHT SHOULDER + OPEN CAN TEST) Edema: No Peripheral Pulses WNL: Yes Integumentary: Yes: WNL Wound/Incision: Yes: Clean/Dry Neurological: Yes: Pre-Existing Deficit ...Motor Strength: RUE Psychiatric: Yes: WNL Labs: CBC, BMP 11/30/19 07:15 11/30/19 07:10 Discharge Summary Problems reviewed: Yes Reason For Visit: RIGHT HAND SWELLING Current Active Problems Cellulitis (Acute) Elbow pain, right (Acute) Procedures: Principal: XRAYS/LABS/CX Hospital Course: TREATED WITH IV ABX, WARM SOAK TO UPPER EXTREMITY, TREATED FOR CELLULITIS Goals: CEFTIN 500MG PO BID 7 DAYS F/U INR IN 1 WEEK Condition: Improved - Instructions Diet, Activity, Other Instructions: SEE DR URBAN IN 3-4 DAYS FOR INR CHECK OR CALL [facility] FOR HOME VISIT INR COMPLETE CEFTIN 500MG BID FOR 7 DAYS Referrals: Tisha Urban MD [Primary Care Provider] - Disposition: [facility]/HOME HEALTH CARE - Home Medications Comprehensive Discharge Medication List: Ambulatory Orders Warfarin Na [Coumadin -] 5 mg PO DAILY@1800 04/30/19 Amiodarone HCl [Cordarone -] 200 mg PO DAILY tablet 05/04/19 traMADol HCL [Ultram -] 50 mg PO BID PRN 09/09/19 Pantoprazole Sodium [Protonix -] 40 mg PO DAILY #30 tablet.ec 09/12/19 Rosuvastatin Calcium [Crestor] 5 mg PO HS #30 tablet 11/07/19 Gabapentin 100 mg PO DAILY 11/28/19 Metoprolol Tartrate [Lopressor -] 12.5 mg PO DAILY 11/28/19 Acetaminophen [Tylenol .Regular Strength -] 650 mg PO Q6H PRN tablet 12/01/19 Cefuroxime Axetil [Ceftin -] 500 mg PO Q12H #14 tablet 12/01/19 Sennosides [Senna -] 1 tab PO HS tablet 12/01/19
[2019-12-01 08:11] LABS: INR 2.41 (0.83-1.09); PROTHROMBIN TIME (PATIENT) 28.7 SEC (9.7-13.0)
[2019-12-01] MEDS: AMIODARONE HCL 200 MG TABLET PO SCH (09:48)
[2019-12-01] MEDS: PANTOPRAZOLE 40 MG TABLET PO SCH (09:48)
[2019-12-01 13:40] VITALS: BP 140/70; PULSE 78; TEMP 99.4
--- NOTE | 2019-12-01 14:48 | PN ---
Progress Note, Physician Chief Complaint: REPORTS LESS SWELLING AND ERYTHEMA R HAND NO C/O ELBOW/ FOREARM PAIN NO C/O R HAND PAIN NO C/O F/C - Current Medication List Current Medications: Active Medications Acetaminophen (Tylenol -) 650 mg PO Q6H PRN PRN Reason: FEVER Last Admin: 11/29/19 22:35 Dose: 650 mg Documented by: Amiodarone HCl (Cordarone -) 200 mg PO DAILY [facility] Last Admin: 12/01/19 09:48 Dose: 200 mg Documented by: Docusate Sodium (Colace -) 100 mg PO TID [facility] Last Admin: 12/01/19 13:40 Dose: 100 mg Documented by: Cefazolin Sodium 1 gm/ (Dextrose) 50 mls @ 100 mls/hr IVPB Q8H-IV [facility] Last Admin: 12/01/19 09:48 Dose: 100 mls/hr Documented by: Magnesium Hydroxide (Milk Of Magnesia -) 30 ml PO PRN PRN PRN Reason: CONSTIPATION Pantoprazole Sodium (Protonix -) 40 mg PO DAILY [facility] Last Admin: 12/01/19 09:48 Dose: 40 mg Documented by: Rosuvastatin Calcium (Crestor -) 5 mg PO [facility] Last Admin: 11/30/19 21:05 Dose: 5 mg Documented by: Senna (Senna -) 1 tab PO [facility] Last Admin: 11/30/19 21:08 Dose: Not Given Documented by: Tramadol HCl (Ultram -) 50 mg PO BID PRN PRN Reason: PAIN Last Admin: 11/30/19 21:05 Dose: 50 mg Documented by: Warfarin Sodium (Coumadin -) 5 mg PO DAILY@1800 [facility] Last Admin: 11/30/19 18:18 Dose: 5 mg Documented by: - Objective Vital Signs: Vital Signs Temperature 99.4 F 12/01/19 13:39 Pulse Rate 78 12/01/19 13:39 Respiratory Rate 20 12/01/19 13:39 Blood Pressure 140/70 12/01/19 13:39 O2 Sat by Pulse Oximetry (%) 93 L 12/01/19 13:39 Constitutional: Yes: No Distress Eyes: Yes: Conjunctiva Clear Cardiovascular: Yes: Regular Rate and Rhythm, S1, S2 Gastrointestinal: Yes: Normal Bowel Sounds, Soft. No: Tenderness Extremities: Yes: Other (ERYTHEMA/ SWELLING R HAND/WRIST/ELBOW RESOLVED) Labs: CBC, BMP 11/30/19 07:15 11/30/19 07:10 INR, PTT INR 2.41 (0.83-1.09) H 12/01/19 07:25 Assessment/Plan CELLUILITIS/ LYMPHNGITIS R UE RESOLVED R ELBOW ERYTHEMA/ SWELLING RESOLVED SUBSTITUTE PO ANTIBIOTICS ADDITIONAL 72HR
== END 2019-12-01 16:38 | disposition home health service (06) | DRG 603 ==
LOC: JER 05:55 → JERBED 10:07 → J8W 11-28 08:47
PROVIDERS: ADMIT Family Medicine; ATTEND Family Medicine
DX: L03.123 Acute lymphangitis of right upper limb (principal); L03.113 Cellulitis of right upper limb; I10 Essential (primary) hypertension; I48.91 Unspecified atrial fibrillation; K21.9 Gastro-esophageal reflux disease without esophagitis; E78.5 Hyperlipidemia, unspecified
CPT/HCPCS: 36415; 71045-TC-FY; 73070-TC-RT-FY; 80048; 80053; 81003; 82962; 83735; 85025; 85027; 85610; 85651; 86140; 87040; 87086; 93005; 93010; 99285-25; G0480; U0003

== ENCOUNTER 2020-02-06 11:38 | Inpatient (IN) | payer OTHER, MEDICARE ==
[2020-02-06] MEDS ORDERED: LACTATED RINGERS SOLUTION 1000 ML INFUS.BAG IV ONE ×2 (13:03→14:07)
[2020-02-06 13:33] LABS: BASO % 0.6 % (0-2.0); EOS % 0.1 % (0-4.5); HEMATOCRIT 43.2 % (32.4-45.2); HEMOGLOBIN 14.1 GM/dL (10.7-15.3); LYMPH % 28.3 % (8-40); MCHC 32.6 g/dl (32.0-36.0); MEAN PLT VOLUME 9.8 fl (7.5-11.1); PLATELET COUNT 351 K/MM3 (134-434); RBC 4.54 M/mm3 (3.60-5.2); RDW 16.1 % (11.6-15.6); WHITE BLOOD COUNT 9.3 K/mm3 (4.0-10.0)
[2020-02-06 13:43] LABS: ACTIVATED PTT 70.5 SECONDS (25.2-36.5)
[2020-02-06 13:54] LABS: CALCIUM 8.9 mg/dL (8.5-10.1)
[2020-02-06 13:55] LABS: ALBUMIN 3.7 g/dl (3.4-5.0)
[2020-02-06 13:57] LABS: CREATININE 3.1 mg/dL (0.55-1.3)
[2020-02-06 13:59] LABS: BILIRUBIN,TOTAL 1.1 mg/dL (0.2-1); TOT PROT 7.9 g/dl (6.4-8.2)
[2020-02-06 14:22] LABS: PROTHROMBIN TIME (PATIENT) 132.2 SEC (9.7-13.0)
[2020-02-06 14:23] LABS: INR 11.54 (0.83-1.09)
[2020-02-06 14:25] LABS: MAGNESIUM 2.5 mg/dL (1.8-2.4)
[2020-02-06] MEDS ORDERED: PHYTONADIONE 5 MG TABLET PO ONE (14:33)
[2020-02-06] MEDS ORDERED: CALCIUM GLUCONATE 10% - 1,000 MG/10 ML VIAL IVPB ONE (14:43)
[2020-02-06 15:03] LABS: POTASSIUM 6.3 mmol/L (3.5-5.1)
[2020-02-06] MEDS ORDERED: CALCIUM GLUCONATE 10% - 1,000 MG/10 ML VIAL ONE (15:07)
[2020-02-06] MEDS ORDERED: PHYTONADIONE 5 MG TABLET ONE (15:08)
[2020-02-06] MEDS ORDERED: SODIUM ZIRCONIUM CYCLOSILICATE (LOKELMA) 5 GM PACKET PO STA (16:42)
[2020-02-06] MEDS ORDERED: SODIUM ZIRCONIUM CYCLOSILICATE (LOKELMA) 5 GM PACKET ONE (18:15)
[2020-02-06] MEDS ORDERED: SODIUM CHLORIDE 1,000 ML IV SCH (18:15)
[2020-02-06] MEDS ORDERED: SODIUM ZIRCONIUM CYCLOSILICATE (LOKELMA) 10 GM PACKET PO STA (18:16)
[2020-02-06 18:26] LABS: POTASSIUM 5.6 mmol/L (3.5-5.1)
[2020-02-06 18:28] LABS: BLOOD UREA NITROGEN 53.8 mg/dL (7-18); CALCIUM 9.3 mg/dL (8.5-10.1)
[2020-02-06 19:34] LABS: N-TERMINAL BNP 13951.7 pg/ml (5-450)
[2020-02-06] MEDS ORDERED: SENNOSIDES 8.6MG TABLET (FP) PO ONE (22:42)
[2020-02-06] MEDS: SENNOSIDES 8.6MG TABLET (FP) PO SCH (23:52)
[2020-02-06] MEDS: ROSUVASTATIN CA 5 MG TABLET (FP) PO SCH (23:52)
[2020-02-07 08:01] LABS: BASO % 0.3 % (0-2.0); HEMATOCRIT 40.8 % (32.4-45.2); HEMOGLOBIN 13.3 GM/dL (10.7-15.3); LYMPH % 16.2 % (8-40); MCH 30.6 pg (25.7-33.7); MCHC 32.7 g/dl (32.0-36.0); MEAN CELL VOLUME 93.7 fl (80-96); MEAN PLT VOLUME 9.7 fl (7.5-11.1); MONO % 6.9 % (3.8-10.2); NEUT % 76.6 % (42.8-82.8); PLATELET COUNT 307 K/MM3 (134-434); RBC 4.36 M/mm3 (3.60-5.2); RDW 16.1 % (11.6-15.6); WHITE BLOOD COUNT 11.1 K/mm3 (4.0-10.0)
[2020-02-07 08:21] LABS: POTASSIUM 4.7 mmol/L (3.5-5.1)
[2020-02-07 08:29] LABS: BLOOD UREA NITROGEN 62.2 mg/dL (7-18); CALCIUM 8.4 mg/dL (8.5-10.1)
[2020-02-07 08:32] LABS: CREATININE 2.7 mg/dL (0.55-1.3); PHOSPHOROUS 6.1 mg/dL (2.5-4.9)
[2020-02-07 08:34] LABS: PROTHROMBIN TIME (PATIENT) 156.4 SEC (9.7-13.0)
[2020-02-07 08:37] LABS: N-TERMINAL BNP 18633.9 pg/ml (5-450)
[2020-02-07 08:39] LABS: INR 13.96 (0.83-1.09)
[2020-02-07] MEDS ORDERED: FLU VACCINE (FLULAVAL) PF 60 MCG/0.5 ML SYRINGE 2020-2021 IM ONE (09:00)
[2020-02-07] MEDS: PANTOPRAZOLE 40 MG TABLET PO SCH (10:29)
[2020-02-07] MEDS: GABAPENTIN 100 MG CAPSULE PO SCH (10:30)
[2020-02-07] MEDS ORDERED: SODIUM CHLORIDE 0.45% 1,000 ML IV SCH (11:00)
[2020-02-07] MEDS: SODIUM BICARBONATE 650 MG TABLET PO SCH (11:53)
[2020-02-07] MEDS ORDERED: PHYTONADIONE 5 MG TABLET PO ONE (15:41)
[2020-02-07] MEDS: SENNOSIDES 8.6MG TABLET (FP) PO SCH (21:37)
[2020-02-07] MEDS: ROSUVASTATIN CA 5 MG TABLET (FP) PO SCH (21:37)
[2020-02-08 07:02] LABS: HEMATOCRIT 37.3 % (32.4-45.2); HEMOGLOBIN 12.2 GM/dL (10.7-15.3); MCHC 32.7 g/dl (32.0-36.0); MEAN CELL VOLUME 91.7 fl (80-96); MEAN PLT VOLUME 9.1 fl (7.5-11.1); PLATELET COUNT 303 K/MM3 (134-434); RBC 4.07 M/mm3 (3.60-5.2); WHITE BLOOD COUNT 9.1 K/mm3 (4.0-10.0)
[2020-02-08 07:05] LABS: POTASSIUM 3.9 mmol/L (3.5-5.1)
[2020-02-08 07:07] LABS: INR 3.04 (0.83-1.09); PROTHROMBIN TIME (PATIENT) 35.6 SEC (9.7-13.0)
[2020-02-08 07:11] LABS: CALCIUM 7.9 mg/dL (8.5-10.1)
[2020-02-08 07:12] LABS: ALBUMIN 3.1 g/dl (3.4-5.0); BLOOD UREA NITROGEN 50.5 mg/dL (7-18)
[2020-02-08 07:15] LABS: CREATININE 1.5 mg/dL (0.55-1.3)
[2020-02-08 07:16] LABS: TOT PROT 6.1 g/dl (6.4-8.2)
[2020-02-08] MEDS: GABAPENTIN 100 MG CAPSULE PO SCH (09:04)
[2020-02-08] MEDS: PANTOPRAZOLE 40 MG TABLET PO SCH (09:04)
[2020-02-08] MEDS: SODIUM BICARBONATE 650 MG TABLET PO SCH (09:04)
[2020-02-08 11:56] LABS: EPI CELLS 5 /uL (0-25.1); HYALINE CASTS 1 /uL (0-3.1); PH,URINE 5.5 (5.0-8.0); URINE APPEARANCE Error; URINE BACTERIA 290 /uL (0-1359); URINE BILIRUBIN NEGATIVE (NEGATIVE); URINE COLOR YELLOW; URINE GLUCOSE (UA) NEGATIVE (NEGATIVE); URINE KETONE TRACE (NEGATIVE); URINE LEUK ESTERASE 2+ (NEGATIVE); URINE NITRITE NEGATIVE (NEGATIVE); URINE PROTEIN 1+ (NEGATIVE); URINE RBC 24 /uL (0-23.9); URINE UROBILINOGEN 0.2 mg/dL (0.2-1.0); URINE WBC 1506 /uL (0-25.8)
[2020-02-08] MEDS: ROSUVASTATIN CA 5 MG TABLET (FP) PO SCH (21:22)
[2020-02-08] MEDS: SENNOSIDES 8.6MG TABLET (FP) PO SCH (21:22)
[2020-02-09 07:14] LABS: HEMATOCRIT 39.1 % (32.4-45.2); HEMOGLOBIN 12.8 GM/dL (10.7-15.3); MCHC 32.9 g/dl (32.0-36.0); MEAN CELL VOLUME 91.3 fl (80-96); PLATELET COUNT 315 K/MM3 (134-434); RBC 4.28 M/mm3 (3.60-5.2); WHITE BLOOD COUNT 7.9 K/mm3 (4.0-10.0)
[2020-02-09 07:17] LABS: INR 1.75 (0.83-1.09); PROTHROMBIN TIME (PATIENT) 21.2 SEC (9.7-13.0)
[2020-02-09 07:34] LABS: POTASSIUM 3.9 mmol/L (3.5-5.1)
[2020-02-09 07:45] LABS: ALBUMIN 3.1 g/dl (3.4-5.0); CALCIUM 8.3 mg/dL (8.5-10.1)
[2020-02-09 07:46] LABS: BLOOD UREA NITROGEN 26.5 mg/dL (7-18)
[2020-02-09 07:47] LABS: TOT PROT 6.2 g/dl (6.4-8.2)
[2020-02-09 07:48] LABS: CREATININE 0.9 mg/dL (0.55-1.3); PHOSPHOROUS 1.4 mg/dL (2.5-4.9)
[2020-02-09 07:51] LABS: BILIRUBIN,DIRECT 0.3 mg/dL (0.0-0.2)
[2020-02-09] MEDS: SODIUM BICARBONATE 650 MG TABLET PO SCH (09:06)
[2020-02-09] MEDS: PANTOPRAZOLE 40 MG TABLET PO SCH (09:06)
[2020-02-09] MEDS: GABAPENTIN 100 MG CAPSULE PO SCH (09:06)
[2020-02-09] MEDS ORDERED: cefTRIAXone SODIUM 1 GM VIAL ONE (09:14)
[2020-02-09] MEDS ORDERED: DEXTROSE 5%-WATER - 50 ML IVPB ONE (09:15)
[2020-02-09] MEDS: CEFTRIAXONE 1 GM in DEXTROSE 5%-WATER - 50 ML IVPB SCH (09:23)
[2020-02-09] MEDS: ENOXAPARIN NA (PORCINE) 60 MG/0.6 ML DISP.SYRIN SQ SCH ×2 (09:26→21:37)
[2020-02-09] MEDS: NAPH,MB-DB/K PH,MBDB POWDER PACKET PO SCH ×2 (14:01→21:37)
[2020-02-09] MEDS: WARFARIN NA 5 MG TABLET PO SCH (17:00)
[2020-02-09] MEDS: SENNOSIDES 8.6MG TABLET (FP) PO SCH (21:37)
[2020-02-09 22:38] VITALS: BMI 20.1
[2020-02-10 07:22] LABS: INR 1.7 (0.83-1.09); PROTHROMBIN TIME (PATIENT) 20.2 SEC (9.7-13.0)
[2020-02-10 07:23] LABS: POTASSIUM 3.7 mmol/L (3.5-5.1)
[2020-02-10 07:30] LABS: ALBUMIN 2.9 g/dl (3.4-5.0); BLOOD UREA NITROGEN 14.6 mg/dL (7-18); CALCIUM 8.2 mg/dL (8.5-10.1)
[2020-02-10 07:33] LABS: BILIRUBIN,DIRECT 0.4 mg/dL (0.0-0.2); CREATININE 0.7 mg/dL (0.55-1.3); PHOSPHOROUS 1.9 mg/dL (2.5-4.9)
[2020-02-10 07:35] LABS: BILIRUBIN,TOTAL 1.6 mg/dL (0.2-1)
[2020-02-10] MEDS ORDERED: PT OWN MED DRAWER 7, Y5N ONE (09:31)
[2020-02-10] MEDS ORDERED: cefTRIAXone SODIUM 1 GM VIAL ONE (09:31)
[2020-02-10] MEDS ORDERED: DEXTROSE 5%-WATER - 50 ML IVPB ONE (09:32)
[2020-02-10] MEDS: NAPH,MB-DB/K PH,MBDB POWDER PACKET PO SCH (09:36)
[2020-02-10] MEDS: ENOXAPARIN NA (PORCINE) 60 MG/0.6 ML DISP.SYRIN SQ SCH ×2 (09:36→20:24)
[2020-02-10] MEDS: PANTOPRAZOLE 40 MG TABLET PO SCH (09:36)
[2020-02-10] MEDS: GABAPENTIN 100 MG CAPSULE PO SCH (09:36)
[2020-02-10] MEDS: CEFTRIAXONE 1 GM in DEXTROSE 5%-WATER - 50 ML IVPB SCH (09:36)
[2020-02-10 12:07] LABS: TRANSGLUTAMINASE IGA < 2 U/mL (0-3); TRANSGLUTAMINASE IGG < 2 U/mL (0-5)
[2020-02-10] MEDS ORDERED: NAPH,MB-DB/K PH,MBDB POWDER PACKET PO ONE (13:59)
[2020-02-10] MEDS: WARFARIN NA 5 MG TABLET PO SCH (17:46)
[2020-02-10] MEDS: SENNOSIDES 8.6MG TABLET (FP) PO SCH (21:11)
[2020-02-10 22:06] LABS: HEP B CORE AB, TOT Negative (Negative)
[2020-02-11 07:24] LABS: POTASSIUM 3.8 mmol/L (3.5-5.1)
[2020-02-11 07:43] LABS: TOT PROT 5.9 g/dl (6.4-8.2)
[2020-02-11 07:44] LABS: BILIRUBIN,DIRECT 0.3 mg/dL (0.0-0.2); CREATININE 0.8 mg/dL (0.55-1.3)
[2020-02-11 07:45] LABS: PHOSPHOROUS 2.6 mg/dL (2.5-4.9)
[2020-02-11 07:59] LABS: ALBUMIN 2.9 g/dl (3.4-5.0); BLOOD UREA NITROGEN 13.1 mg/dL (7-18); CALCIUM 8.3 mg/dL (8.5-10.1); MAGNESIUM 1.8 mg/dL (1.8-2.4)
[2020-02-11] MEDS ORDERED: cefTRIAXone SODIUM 1 GM VIAL ONE (10:05)
[2020-02-11] MEDS ORDERED: DEXTROSE 5%-WATER - 50 ML IVPB ONE (10:05)
[2020-02-11] MEDS: CEFTRIAXONE 1 GM in DEXTROSE 5%-WATER - 50 ML IVPB SCH (10:08)
[2020-02-11] MEDS: ENOXAPARIN NA (PORCINE) 60 MG/0.6 ML DISP.SYRIN SQ SCH ×2 (10:08→21:23)
[2020-02-11] MEDS: GABAPENTIN 100 MG CAPSULE PO SCH (10:10)
[2020-02-11] MEDS: PANTOPRAZOLE 40 MG TABLET PO SCH (10:11)
[2020-02-11 16:56] LABS: INR 1.74 (0.83-1.09); PROTHROMBIN TIME (PATIENT) 20.7 SEC (9.7-13.0)
[2020-02-11] MEDS ORDERED: WARFARIN NA 5 MG TABLET PO SCH (18:00)
[2020-02-11] MEDS ORDERED: PT OWN MED DRAWER 7, Y5N ONE (21:22)
[2020-02-11] MEDS: CEFUROXIME AXETIL 500 MG TABLET PO SCH (21:24)
[2020-02-11] MEDS ORDERED: SENNOSIDES 8.6MG TABLET (FP) PO SCH (22:00)
[2020-02-12 06:40] VITALS: PULSE 76
[2020-02-12 07:34] LABS: INR 1.66 (0.83-1.09); PROTHROMBIN TIME (PATIENT) 19.8 SEC (9.7-13.0)
[2020-02-12] MEDS: CEFUROXIME AXETIL 500 MG TABLET PO SCH (09:46)
[2020-02-12] MEDS: ENOXAPARIN NA (PORCINE) 60 MG/0.6 ML DISP.SYRIN SQ SCH (09:46)
[2020-02-12] MEDS ORDERED: PANTOPRAZOLE 40 MG TABLET PO SCH (10:00)
[2020-02-12] MEDS ORDERED: GABAPENTIN 100 MG CAPSULE PO SCH (10:00)
[2020-02-12 15:08] VITALS: BP 105/54; TEMP 98.1
== END 2020-02-12 16:34 | disposition home health service (06) | DRG 683 ==
LOC: JER 11:38 → JERBED 16:51 → J4S 02-07 05:16 → J7W 02-11 14:12
PROVIDERS: ADMIT Family Medicine; ATTEND Family Medicine
DX: N17.9 Acute kidney failure, unspecified (principal); N39.0 Urinary tract infection, site not specified; E87.5 Hyperkalemia; E78.5 Hyperlipidemia, unspecified; I10 Essential (primary) hypertension; K21.9 Gastro-esophageal reflux disease without esophagitis; R63.0 Anorexia; R00.1 Bradycardia, unspecified; R79.1 Abnormal coagulation profile; R94.31 Abnormal electrocardiogram [ECG] [EKG]; E03.9 Hypothyroidism, unspecified; I48.0 Paroxysmal atrial fibrillation; R53.1 Weakness; R74.01 Elevation of levels of liver transaminase levels; R11.2 Nausea with vomiting, unspecified; N28.1 Cyst of kidney, acquired; I27.20 Pulmonary hypertension, unspecified; K57.90 Diverticulosis of intestine, part unspecified, without perforation or abscess without bleeding; I08.0 Rheumatic disorders of both mitral and aortic valves; K76.0 Fatty (change of) liver, not elsewhere classified; B96.20 Unspecified Escherichia coli [E. coli] as the cause of diseases classified elsewhere
CPT/HCPCS: 36415; 71045-TC-FY; 76700-TC; 80048; 80053; 80074; 80076; 81003; 82105; 82436; 82550; 82553; 82565; 82728; 82977; 83516; 83540; 83550; 83735; 83880; 84100; 84133; 84300; 84443; 84484; 85025; 85027; 85610; 85730; 86038; 86704; 86706; 86707; 86708; 86709; 86803; 87086; 87186; 87340; 93005; 93010; 93306-TC; 97116-GP; 97161-GP; 99291; C9803; G0008; Q2036; U0003

== ENCOUNTER 2020-02-28 08:54 | Emergency (ER) | payer OTHER, MEDICARE ==
[2020-02-28 09:01] VITALS: BP 155/79; PULSE 78; TEMP 97.9; BMI 20.2
== END 2020-02-28 10:05 | disposition home or self-care (01) ==
LOC: JERFT 08:54
DX: S51.811A Laceration without foreign body of right forearm, initial encounter (principal)
CPT/HCPCS: 99282-25

== ENCOUNTER 2020-03-15 14:11 | Inpatient (IN) | payer OTHER, MEDICARE ==
[2020-03-15] MEDS ORDERED: FOLIC ACID INJECTION - 1 MG, THIAMINE HCL 100 MG, MULTIVIT INJECTION ADULT 10 ML in SOD... IVPB ONE (15:06)
[2020-03-15 15:08] VITALS: BMI 20.2
[2020-03-15 17:11] LABS: BASO % 0.8 % (0-2.0); EOS % 0.1 % (0-4.5); HEMATOCRIT 39.3 % (32.4-45.2); HEMOGLOBIN 12.8 GM/dL (10.7-15.3); LYMPH % 26.7 % (8-40); MCH 30.3 pg (25.7-33.7); MCHC 32.6 g/dl (32.0-36.0); MEAN CELL VOLUME 92.9 fl (80-96); MEAN PLT VOLUME 10.2 fl (7.5-11.1); MONO % 9.1 % (3.8-10.2); NEUT % 63.3 % (42.8-82.8); PLATELET COUNT 278 K/MM3 (134-434); RBC 4.23 M/mm3 (3.60-5.2); RDW 16.4 % (11.6-15.6); WHITE BLOOD COUNT 11.5 K/mm3 (4.0-10.0)
[2020-03-15 17:23] LABS: PROTHROMBIN TIME (PATIENT) 67.7 SEC (9.7-13.0)
[2020-03-15 17:24] LABS: ACTIVATED PTT 37.2 SECONDS (25.2-36.5)
[2020-03-15 17:33] LABS: EPI CELLS 27 /uL (0-25.1); HYALINE CASTS 2 /uL (0-3.1); URINE APPEARANCE TURBID; URINE BACTERIA 579 /uL (0-1359); URINE BILIRUBIN 1+ (NEGATIVE); URINE COLOR DK YELLOW; URINE GLUCOSE (UA) NEGATIVE (NEGATIVE); URINE KETONE TRACE (NEGATIVE); URINE LEUK ESTERASE 2+ (NEGATIVE); URINE NITRITE NEGATIVE (NEGATIVE); URINE PROTEIN 2+ (NEGATIVE); URINE WBC 1704 /uL (0-25.8)
[2020-03-15 17:33] LABS: INR 5.79 (0.83-1.09)
[2020-03-15] MEDS ORDERED: CEFTRIAXONE 1 GM in DEXTROSE 5%-WATER - 50 ML IVPB ONE (17:35)
[2020-03-15 17:41] LABS: ALBUMIN 3.8 g/dl (3.4-5.0); BLOOD UREA NITROGEN 50.6 mg/dL (7-18); CALCIUM 8.9 mg/dL (8.5-10.1)
[2020-03-15 17:42] LABS: MAGNESIUM 2.4 mg/dL (1.8-2.4)
[2020-03-15 17:46] LABS: BILIRUBIN,TOTAL 2.3 mg/dL (0.2-1); TOT PROT 7.6 g/dl (6.4-8.2)
[2020-03-15 17:47] LABS: PHOSPHOROUS 7.4 mg/dL (2.5-4.9)
[2020-03-15 17:48] LABS: CREATININE 2.4 mg/dL (0.55-1.3)
[2020-03-15] MEDS ORDERED: LACTATED RINGERS SOLUTION 1,000 ML IV STA (18:18)
[2020-03-15] MEDS ORDERED: CEFTRIAXONE 1 GM/50 ML BAG ONE (18:39)
[2020-03-15 19:07] LABS: URINE RBC 84.1 /uL (0-23.9)
[2020-03-15 20:31] LABS: CALCIUM 8.8 mg/dL (8.5-10.1)
[2020-03-15 20:32] LABS: ALBUMIN 3.6 g/dl (3.4-5.0); MAGNESIUM 2.3 mg/dL (1.8-2.4)
[2020-03-15 20:35] LABS: CREATININE 2.4 mg/dL (0.55-1.3)
[2020-03-15 20:43] LABS: BLOOD UREA NITROGEN 49.9 mg/dL (7-18)
[2020-03-16] MEDS ORDERED: RAPID SEQUENCE INTUBATION KIT NR ONE (02:50)
[2020-03-16 03:21] LABS: ARTERIAL BLD GAS O2 SATURATION 92.2 mmHg (95-98); ARTERIAL BLOOD GAS BASE EXCESS -20.8 mmol/L (-2-2); ARTERIAL BLOOD GAS PO2 79.7 mmHg (80-100)
[2020-03-16] MEDS ORDERED: MAGNESIUM SULF 50% (8.12 MEQ/2 ML-1 GM VIAL) IVPB ONE (03:21)
[2020-03-16] MEDS ORDERED: INSULIN REGULAR HUMAN 100 UNITS/ML *VIAL IVPUSH ONE ×2 (03:21→09:18)
[2020-03-16] MEDS ORDERED: SODIUM BICARBONATE 8.4% 50 MEQ/50 ML DISP.SYRIN IVPUSH ONE ×2 (03:22→06:54)
[2020-03-16] MEDS ORDERED: DEXTROSE 50%-WATER - 25 GM/50 ML VIAL IVPUSH ONE ×2 (03:22→09:20)
[2020-03-16] MEDS ORDERED: CALCIUM GLUCONATE 10% - 1,000 MG/10 ML VIAL IVPUSH ONE ×3 (03:23→06:49)
[2020-03-16 03:26] LABS: ARTERIAL BLOOD GAS pH 7.133 (7.350-7.450)
[2020-03-16] MEDS ORDERED: fentaNYL CITRATE 250 MCG/5 ML VIAL ONE (03:43)
[2020-03-16] MEDS ORDERED: DEXTROSE 50%-WATER 25 GM/50 ML DISP.SYRIN ONE ×2 (04:24→10:41)
[2020-03-16] MEDS ORDERED: SODIUM BICARBONATE 8.4% - 50 ML ONE (04:24)
[2020-03-16] MEDS ORDERED: MIDAZOLAM 100 MG/100 ML MG IVPB ONE (04:24)
[2020-03-16] MEDS ORDERED: CALCIUM CHLORIDE 1 GM/10 ML *DISP.SYRIN ONE (04:24)
[2020-03-16] MEDS ORDERED: DEXTROSE 5%-WATER - 1,000 ML with SODIUM BICARBONATE 8.4% - 150 MEQ IV SCH (04:45)
[2020-03-16] MEDS: NOREPINEPHRINE BITARTRATE 16,000 MCG in SODIUM CHLORIDE 484 ML IV SCH (05:24)
[2020-03-16] MEDS: MIDAZOLAM 100 MG in SODIUM CHLORIDE 100 ML IVPB SCH (05:24)
[2020-03-16] MEDS ORDERED: GLUCAGON 1 MG KIT IVPUSH ONE (06:02)
[2020-03-16] MEDS: DOPAMINE 400 MG/D5W - 400,000 MCG/250 ML INFUS.BAG IVPB SCH ×2 (06:10→17:05)
[2020-03-16 07:05] LABS: ALBUMIN 3.3 g/dl (3.4-5.0); CALCIUM 9.3 mg/dL (8.5-10.1); CALCIUM 9.5 mg/dL (8.5-10.1)
[2020-03-16 07:06] LABS: ALBUMIN 3.3 g/dl (3.4-5.0); BLOOD UREA NITROGEN 51.7 mg/dL (7-18); MAGNESIUM 2.7 mg/dL (1.8-2.4)
[2020-03-16 07:08] LABS: CREATININE 3.1 mg/dL (0.55-1.3)
[2020-03-16 07:09] LABS: CREATININE 3.2 mg/dL (0.55-1.3)
[2020-03-16 07:09] LABS: ARTERIAL BLD GAS O2 SATURATION 46.9 mmHg (95-98); ARTERIAL BLOOD GAS BASE EXCESS -19.9 mmol/L (-2-2)
[2020-03-16 07:10] LABS: BILIRUBIN,TOTAL 2.2 mg/dL (0.2-1); BILIRUBIN,TOTAL 2.3 mg/dL (0.2-1); TOT PROT 6.4 g/dl (6.4-8.2); TOT PROT 6.5 g/dl (6.4-8.2)
[2020-03-16 07:31] LABS: ARTERIAL BLOOD GAS pH 6.985 (7.350-7.450)
[2020-03-16 07:32] LABS: ARTERIAL BLOOD GAS PO2 38.2 mmHg (80-100)
[2020-03-16] MEDS ORDERED: cefTRIAXone SODIUM 1 GM VIAL ONE (09:11)
[2020-03-16] MEDS ORDERED: DEXTROSE 5%-WATER - 50 ML IVPB ONE (09:11)
[2020-03-16] MEDS: CEFTRIAXONE 1 GM in DEXTROSE 5%-WATER - 50 ML IVPB SCH (09:17)
[2020-03-16] MEDS: SODIUM ZIRCONIUM CYCLOSILICATE (LOKELMA) 5 GM PACKET PO SCH (09:17)
[2020-03-16] MEDS: MUPIROCIN 2% TOPICAL OINTMENT FOR DECOLONIZATION NS SCH ×2 (09:18→22:10)
[2020-03-16] MEDS: SODIUM BICARBONATE 8.4% - 150 MEQ in DEXTROSE 5%-WATER - 1,000 ML IV SCH ×3 (09:19→17:03)
[2020-03-16] MEDS ORDERED: ALBUTEROL SO4 0.042% IH SOL 1.25 MG/3 ML VIAL.NEB NEB ONE (09:22)
[2020-03-16] MEDS: INSULIN REGULAR 100 UNITS in SODIUM CHLORIDE 99 ML IVPB SCH (10:43)
[2020-03-16 13:05] LABS: HEMOGLOBIN 11.8 GM/dL (10.7-15.3); MCH 29.7 pg (25.7-33.7); MCHC 31.1 g/dl (32.0-36.0); MEAN CELL VOLUME 95.3 fl (80-96); MEAN PLT VOLUME 10.5 fl (7.5-11.1); PLATELET COUNT 203 K/MM3 (134-434); RBC 3.98 M/mm3 (3.60-5.2); RDW 16.4 % (11.6-15.6)
[2020-03-16 13:19] LABS: ACTIVATED PTT 39.1 SECONDS (25.2-36.5)
[2020-03-16 13:37] LABS: CALCIUM 8.2 mg/dL (8.5-10.1)
[2020-03-16 13:38] LABS: ALBUMIN 3.2 g/dl (3.4-5.0); BLOOD UREA NITROGEN 56.7 mg/dL (7-18); MAGNESIUM 2.1 mg/dL (1.8-2.4)
[2020-03-16 13:41] LABS: CREATININE 3.3 mg/dL (0.55-1.3)
[2020-03-16 13:43] LABS: BILIRUBIN,TOTAL 2.5 mg/dL (0.2-1); TOT PROT 6.2 g/dl (6.4-8.2)
[2020-03-16 13:48] LABS: PROTHROMBIN TIME (PATIENT) 139.3 SEC (9.7-13.0)
[2020-03-16 13:49] LABS: INR 12.39 (0.83-1.09)
[2020-03-16] MEDS ORDERED: PHYTONADIONE 10 MG/1 ML AMP IVPB ONE (13:52)
[2020-03-16 14:57] LABS: ARTERIAL BLD GAS O2 SATURATION 99.2 mmHg (95-98); ARTERIAL BLOOD GAS BASE EXCESS -8.7 mmol/L (-2-2); ARTERIAL BLOOD GAS PO2 189.9 mmHg (80-100); ARTERIAL BLOOD GAS pH 7.338 (7.350-7.450)
[2020-03-16 14:58] LABS: ALLENS TEST POSITIVE
[2020-03-16 14:59] LABS: VENT MODE A/C; VENT RATE 309
[2020-03-16] MEDS ORDERED: PT OWN MED DRAWER 7, Y5N ONE (15:07)
[2020-03-16] MEDS: CHLORHEXIDINE GLUCONATE 4% CLEANSER FOR DECOLONIZATION TP SCH (22:11)
[2020-03-16 22:53] LABS: CALCIUM 7.8 mg/dL (8.5-10.1)
[2020-03-16 22:54] LABS: BLOOD UREA NITROGEN 57.7 mg/dL (7-18)
[2020-03-16 22:57] LABS: CREATININE 3.6 mg/dL (0.55-1.3)
[2020-03-17] MEDS: SODIUM BICARBONATE 8.4% - 150 MEQ in DEXTROSE 5%-WATER - 1,000 ML IV SCH ×4 (01:50→19:08)
[2020-03-17] MEDS: DOPAMINE 400 MG/D5W - 400,000 MCG/250 ML INFUS.BAG IVPB SCH ×2 (04:25→07:31)
[2020-03-17 06:24] LABS: ARTERIAL BLD GAS O2 SATURATION 97.4 mmHg (95-98); ARTERIAL BLOOD GAS BASE EXCESS -1.4 mmol/L (-2-2); ARTERIAL BLOOD GAS PO2 89.9 mmHg (80-100); ARTERIAL BLOOD GAS pH 7.466 (7.350-7.450)
[2020-03-17 06:40] LABS: ALLENS TEST POSITIVE
[2020-03-17 06:41] LABS: VENT MODE A/C
[2020-03-17 06:45] LABS: VENT RATE 30
[2020-03-17 07:26] LABS: HEMATOCRIT 41.2 % (32.4-45.2); HEMOGLOBIN 13.6 GM/dL (10.7-15.3); MCH 30.1 pg (25.7-33.7); MEAN CELL VOLUME 91.4 fl (80-96); MEAN PLT VOLUME 10.5 fl (7.5-11.1); PLATELET COUNT 189 K/MM3 (134-434); RBC 4.51 M/mm3 (3.60-5.2); RDW 15.6 % (11.6-15.6); WHITE BLOOD COUNT 10.4 K/mm3 (4.0-10.0)
[2020-03-17 07:28] LABS: ACTIVATED PTT 35.3 SECONDS (25.2-36.5)
[2020-03-17 07:39] LABS: CALCIUM 7.1 mg/dL (8.5-10.1)
[2020-03-17 07:40] LABS: BLOOD UREA NITROGEN 59.8 mg/dL (7-18); MAGNESIUM 1.8 mg/dL (1.8-2.4)
[2020-03-17 07:41] LABS: ALBUMIN 2.6 g/dl (3.4-5.0)
[2020-03-17 07:42] LABS: BILIRUBIN,DIRECT 1.2 mg/dL (0.0-0.2)
[2020-03-17 07:43] LABS: CREATININE 3.9 mg/dL (0.55-1.3)
[2020-03-17 07:44] LABS: INR 7.18 (0.83-1.09); PHOSPHOROUS 5.9 mg/dL (2.5-4.9)
[2020-03-17 07:45] LABS: BILIRUBIN,TOTAL 2.8 mg/dL (0.2-1); TOT PROT 5.1 g/dl (6.4-8.2)
[2020-03-17 07:46] LABS: N-TERMINAL BNP 29733.6 pg/ml (5-450)
[2020-03-17] MEDS ORDERED: cefTRIAXone SODIUM 1 GM VIAL ONE (08:45)
[2020-03-17] MEDS ORDERED: DEXTROSE 5%-WATER - 50 ML IVPB ONE (08:45)
[2020-03-17] MEDS: NOREPINEPHRINE BITARTRATE 16,000 MCG in SODIUM CHLORIDE 484 ML IV SCH (10:30)
[2020-03-17] MEDS: MIDAZOLAM 100 MG in SODIUM CHLORIDE 100 ML IVPB SCH (10:30)
[2020-03-17] MEDS: MUPIROCIN 2% TOPICAL OINTMENT FOR DECOLONIZATION NS SCH ×2 (10:35→22:05)
[2020-03-17] MEDS: SODIUM ZIRCONIUM CYCLOSILICATE (LOKELMA) 5 GM PACKET PO SCH (10:35)
[2020-03-17] MEDS: INSULIN REGULAR 100 UNITS in SODIUM CHLORIDE 99 ML IVPB SCH (10:35)
[2020-03-17] MEDS: CEFTRIAXONE 1 GM in DEXTROSE 5%-WATER - 50 ML IVPB SCH (10:36)
[2020-03-17] MEDS ORDERED: PHYTONADIONE 10 MG/1 ML AMP IVPB ONE (11:07)
[2020-03-17] MEDS ORDERED: MIDAZOLAM 100 MG/100 ML MG IVPB ONE (11:44)
[2020-03-17] MEDS: FENTANYL NS IVPB 500 MCG/100 ML BAG IVPB SCH ×2 (18:00→23:23)
[2020-03-17] MEDS: DEXTROSE 5%-0.45% SALINE 1,000 ML IV SCH (19:20)
[2020-03-17] MEDS: CHLORHEXIDINE GLUCONATE 4% CLEANSER FOR DECOLONIZATION TP SCH (22:06)
[2020-03-18] MEDS: NOREPINEPHRINE BITARTRATE 16,000 MCG in SODIUM CHLORIDE 484 ML IV SCH
[2020-03-18] MEDS ORDERED: INSULIN (NOVOLOG) ASPART 100 UNITS/ML 10ML VIAL ONE ×2 (01:53→06:29)
[2020-03-18] MEDS ORDERED: MIDAZOLAM 100 MG/100 ML MG IVPB ONE (01:54)
[2020-03-18] MEDS: DOPAMINE 400 MG/D5W - 400,000 MCG/250 ML INFUS.BAG IVPB SCH (02:11)
[2020-03-18] MEDS: MIDAZOLAM 100 MG in SODIUM CHLORIDE 100 ML IVPB SCH (02:12)
[2020-03-18 06:45] LABS: BASO % 0.3 % (0-2.0); EOS % 0.2 % (0-4.5); HEMATOCRIT 41.3 % (32.4-45.2); HEMOGLOBIN 13.1 GM/dL (10.7-15.3); LYMPH % 10.9 % (8-40); MCH 30.1 pg (25.7-33.7); MCHC 31.6 g/dl (32.0-36.0); MEAN CELL VOLUME 95.3 fl (80-96); MEAN PLT VOLUME 10.8 fl (7.5-11.1); MONO % 1.8 % (3.8-10.2); NEUT % 86.8 % (42.8-82.8); PLATELET COUNT 160 K/MM3 (134-434); RBC 4.33 M/mm3 (3.60-5.2); RDW 16.2 % (11.6-15.6)
[2020-03-18 06:58] LABS: PROTHROMBIN TIME (PATIENT) 60.4 SEC (9.7-13.0)
[2020-03-18] MEDS: DEXTROSE 5%-0.45% SALINE 1,000 ML IV SCH (06:58)
[2020-03-18] MEDS: FENTANYL NS IVPB 500 MCG/100 ML BAG IVPB SCH (06:58)
[2020-03-18 07:11] LABS: BLOOD UREA NITROGEN 61.3 mg/dL (7-18); MAGNESIUM 1.6 mg/dL (1.8-2.4)
[2020-03-18 07:13] LABS: CREATININE 4.9 mg/dL (0.55-1.3)
[2020-03-18 07:15] LABS: BILIRUBIN,TOTAL 3.1 mg/dL (0.2-1); PHOSPHOROUS 8.3 mg/dL (2.5-4.9); TOT PROT 4.2 g/dl (6.4-8.2)
[2020-03-18 07:35] LABS: INR 5.15 (0.83-1.09)
[2020-03-18 07:51] LABS: CALCIUM 5.5 mg/dL (8.5-10.1)
[2020-03-18 07:53] VITALS: TEMP 100.2
[2020-03-18 08:29] VITALS: BP 69/54; PULSE 111
[2020-03-18 10:39] LABS: ANISOCYTOSIS 1+; MACROCYTOSIS 0; OVALOCYTE 1+; PLATELET ESTIMATE DECREASED
[2020-03-18 10:45] LABS: WHITE BLOOD COUNT 24.5 K/mm3 (4.0-10.0)
== END 2020-03-18 08:00 | disposition expired | DRG 871 ==
LOC: JER 14:11 → JERBED 17:47 → JICU 03-16 06:57
PROVIDERS: ADMIT Internal Medicine; ATTEND Internal Medicine Pulmonary Disease
PROC: 5A1945Z Respiratory Ventilation, 24-96 Consecutive Hours (ICD-10-PCS; principal; 2020-03-16)
PROC: 0CHY7BZ Insertion of Airway into Mouth and Throat, Via Natural or Artificial Opening (ICD-10-PCS; 2020-03-16)
PROC: 0DH673Z Insertion of Infusion Device into Stomach, Via Natural or Artificial Opening (ICD-10-PCS; 2020-03-16)
PROC: 05HM33Z Insertion of Infusion Device into Right Internal Jugular Vein, Percutaneous Approach (ICD-10-PCS; 2020-03-16)
PROC: B543ZZA Ultrasonography of Right Jugular Veins, Guidance (ICD-10-PCS; 2020-03-16)
DX: A41.9 Sepsis, unspecified organism (principal); J96.01 Acute respiratory failure with hypoxia; K72.00 Acute and subacute hepatic failure without coma; R65.21 Severe sepsis with septic shock; N17.9 Acute kidney failure, unspecified; E87.2 Acidosis; N39.0 Urinary tract infection, site not specified; R17 Unspecified jaundice; R57.0 Cardiogenic shock; E87.5 Hyperkalemia; E83.52 Hypercalcemia; R00.1 Bradycardia, unspecified; K21.9 Gastro-esophageal reflux disease without esophagitis; R62.7 Adult failure to thrive; I48.0 Paroxysmal atrial fibrillation
CPT/HCPCS: 36415; 36600; 71045-TC-FY; 80048; 80053; 80076; 80162; 80307; 81003; 82550; 82553; 82803; 82962; 83605; 83735; 83880; 84100; 84439; 84443; 84481; 84484; 85025; 85027; 85610; 85730; 93005; 93010; 94002; 99285-25; C9803; U0003